=== PATIENT | female | born 1985 | race Caucasian/White ===

== ENCOUNTER 2022-11-10 10:58 | Emergency (ER) | payer OTHER, SELFPAY ==
[2022-11-10 11:02] VITALS: BP 178/100; PULSE 86; RESP 18; TEMP 36.6; O2SAT 98; BMI 38.0
--- NOTE | 2022-11-10 12:02 | US_ITS ---
Patient: MAURY FRIED Exam Date: 11/10/2022 : 1985 Gender:F Ordering : Ifrah Chase . Admission #: [id number] Family : Order #: [id number] CLICK HERE TO VIEW EXAM RADIOLOGY REPORT PROCEDURE: US BREAST RT LIMITED COMPARISON: None. INDICATIONS: abscess TECHNIQUE: Breast ultrasound was performed, with evaluation focusing only on specific areas of concern. FINDINGS: DIAGNOSTIC CATEGORY 5--HIGHLY SUGGESTIVE OF MALIGNANCY. HIGH PROBABILITY OF MALIGNANCY BASED ON THE FOLLOWING: RIGHT BREAST: Within the anterior breasts, appearing to be part of the nipple, is a 2.2 x 2.1 x 2.1 cm heterogeneous, vascular, and spiculated lesion of uncertain etiology; neoplasm versus abscess. Internal blood flow favors neoplasm. Tissue sampling is recommended. Patient is currently in the emergency department. Findings are being called by myself to the emergency department at this time. RECOMMENDATIONS: SURGICAL CONSULTATION. PLEASE NOTE: A NORMAL ULTRASOUND EXAMINATION DOES NOT EXCLUDE THE POSSIBILITY OF BREAST CANCER. A CLINICALLY SUSPICIOUS PALPABLE LUMP SHOULD BE BIOPSIED. Dictated by: Luis Fernando Eng M.D. on 11/10/2022 at 12:44 Approved by: Luis Fernando Eng M.D. on 11/10/2022 at 12:51
[2022-11-10] MEDS: TRAMADOL HCL 50 MG TABLET PO (12:19)
[2022-11-10 12:28] LABS: Basophils Percent Auto 0.3 % (0.2-2.0); Eosinophils Absolute Auto 0.1 10^3/uL (0.0-0.7); Eosinophils Percent Auto 1.3 % (0.9-7.0); Hematocrit 40.2 % (36.0-48.0); Hemoglobin 13.2 g/dL (12.0-16.0); Immature Granulocytes Abs Auto 0.01 10^3/uL (0.00-0.03); Immature Granulocytes Pct Auto 0.2 % (0.0-0.5); Lymphocytes Absolute Auto 1.2 10^3/uL (1.2-3.8); Lymphocytes Percent Auto 19.5 % (20.5-60.0); Mean Corpuscular HGB Conc 32.8 g/dL (29.9-35.2); Mean Corpuscular Hemoglobin 30.3 pg (26.7-34.0); Mean Corpuscular Volume 92.2 fL (81.0-99.0); Mean Platelet Volume 10.6 fL (9.5-13.5); Monocytes Absolute Auto 0.4 10^3/uL (0.3-0.8); Monocytes Percent Auto 6.7 % (1.7-12.0); Neutrophils Absolute Auto 4.6 10^3/uL (1.4-6.5); Platelet Count 173 10^3/uL (150-450); Red Blood Count 4.36 10^6/uL (4.20-5.40); Red Cell Distribution Width 11.9 % (11.0-15.0); White Blood Count 6.3 10^3/uL (4.0-11.0)
[2022-11-10 12:41] LABS: Alanine Aminotransferase 19 U/L (14-59); Albumin Level 3.9 g/dL (3.4-5.0); Alkaline Phosphatase 58 U/L (46-116); Anion Gap 10.6; Aspartate Amino Transferase 17 U/L (15-37); BUN Creatinine Ratio 22.2; Bilirubin Total 0.8 mg/dL (0.2-1.0); Calcium 8.9 mg/dL (8.5-10.1); Carbon Dioxide 27.3 mmol/L (21.0-32.0); Chloride 104 mmol/L (98-107); Estimated GFR (African America >60 (>=60); Estimated GFR (Non-African Ame >60 (>=60); Globulin 3.8 g/dL; Glucose 104 mg/dL (74-106); Potassium 3.9 mmol/L (3.5-5.1); Sodium 138 mmol/L (136-145); Total Protein 7.7 g/dL (6.4-8.2)
--- NOTE | 2022-11-10 14:18 | ED.GENADUL1 ---
HPI - General Adult General Chief complaint: Skin/Abscess/Foreign Body Stated complaint: RT BREAST PAIN Time Seen by Provider: 11/10/22 11:58 Source: patient Mode of arrival: ambulance History of Present Illness HPI narrative: The patient presented to us with a right breast mass and pain that been going on at least for a year, she mentioned that she presented to her primary care doctor almost a year ago when she had cauterization of the nipple area for the pain The patient explained the procedure in her voice but she is not sure what exactly happened, she is presenting to us after increasing pain in the last month, no fever no chills no other complaints she have no family history of breast cancer she have a history of hysterectomy as well but due to abnormal vaginal bleeding Related Data Home Medications Medication Instructions Recorded Confirmed aripiprazole 20 mg tablet 20 mg PO QDAY 11/10/22 11/10/22 atomoxetine 80 mg capsule 80 mg PO QDAY 11/10/22 11/10/22 buprenorphine 8 mg-naloxone 2 mg 1 film sublingual Q24H 11/10/22 11/10/22 sublingual film clindamycin HCl 300 mg capsule 300 mg PO Q6H 11/10/22 11/10/22 gabapentin 800 mg tablet 800 mg PO QDAY 11/10/22 11/10/22 Previous Rx's Medication Instructions Recorded amoxicillin 875 mg-potassium 1 tab PO Q12H #20 tabs 11/10/22 clavulanate 125 mg tablet tramadol 50 mg tablet 50 mg PO Q8H PRN pain #9 tabs 11/10/22 Allergies Allergy/AdvReac Type Severity Reaction Status Date / Time doxycycline AdvReac Intermediate Verified 11/10/22 11:08 erythromycin base AdvReac Intermediate Verified 11/10/22 11:08 NSAIDS (Non-Steroidal AdvReac Intermediate Verified 11/10/22 11:08 Anti-Inflamma Sulfa (Sulfonamide AdvReac Intermediate Verified 11/10/22 11:08 Antibiotics) elavil AdvReac Intermediate Uncoded 11/10/22 11:08 prestiq AdvReac Intermediate Uncoded 11/10/22 11:08 Review of Systems ROS Status of ROS 10 or more systems reviewed and unremarkable except as noted in history and below Exam Narrative Exam Narrative: Nurses notes and vital signs reviewed and patient is not hypoxic. General: Well-appearing and in no apparent distress. Skin: Warm, dry, no pallor noted. No rash. Head: Normocephalic, atraumatic. Neck: Supple, non-tender. Eye: Pupils are equal, round and EOMI. No scleral icterus. Ears, Nose, Mouth, and Throat: TM are clear, no nasal mucosal hypertrophy. Oral mucosa is moist, no posterior oropharynx erythema, uvula is mid-line Cardiovascular: Regular Rate and Rhythm without murmur, gallop or rub. Respiratory: No accessory muscle use or respiratory distress. Lungs are clear to auscultation, no wheezing, rales or rhonchi Chest Wall: Left breast examination was benign right breast examination shows deformity of the right nipple with area of 7 by 5 cm oval just below the nipple and tender , redness of the area as well noted Back: No midline thoracic or lumbar vertebral tenderness. No CVA tenderness Musculoskeletal: normal ROM, no calf or popliteal tenderness, no lower extremity edema/swelling GI: Abdomen is soft, non-distended. Normal bowel sounds. No masses appreciated. No tenderness to palpation. No rebound, guarding, or rigidity noted. Neurological: A&O x4. No cranial nerve dysfunction observed. No truncal ataxia. Moves all extremities. Sensation intact. Psychiatric: Cooperative and interactive. Normal mood and affect. Constitutional Vital Signs, click to edit/add: Last Vital Signs Temp 98 F 11/10/22 11:02 Pulse 86 11/10/22 11:02 Resp 18 11/10/22 11:02 BP 178/100 H 11/10/22 11:02 Pulse Ox 98 11/10/22 11:02 O2 Del Method Room Air 11/10/22 11:02 Course Vital Signs Vital signs: Vital Signs Temperature 98 F 11/10/22 11:02 Pulse Rate 86 11/10/22 11:02 Respiratory Rate 18 11/10/22 11:02 Blood Pressure 178/100 H 11/10/22 11:02 Pulse Oximetry 98 11/10/22 11:02 Oxygen Delivery Method Room Air 11/10/22 11:02 Temperature 98 F 11/10/22 11:02 Pulse Rate 86 11/10/22 11:02 Respiratory Rate 18 11/10/22 11:02 Blood Pressure 178/100 H 11/10/22 11:02 Pulse Oximetry 98 11/10/22 11:02 Oxygen Delivery Method Room Air 11/10/22 11:02 Medical Decision Making MDM Narrative Medical decision making narrative: The patient CBC and chemistry showed no acute pathology but the ultrasound done showed possibility of highly suspicious cancer as well I spoke with the general surgery on-call and the patient will follow up with him for biopsy as outpatient I did start the patient on Augmentin and she was provided with tramadol for the pain for the next 3 days The patient was instructed about the importance of follow-up with general surgery for biopsy there is a high possibility of cancer and she understand that fully The patient is to follow up with primary care physician in next 2-3 days or to return to the emergency department should any of the signs or symptoms worsen or new symptoms develop. The patient agrees with the following Diagnosis and Treatment plan and the patient will be discharged home. Lab Data Labs: Lab Results 11/10/22 Range/Units 12:12 WBC 6.3 (4.0-11.0) 10^3/uL RBC 4.36 (4.20-5.40) 10^6/uL Hgb 13.2 (12.0-16.0) g/dL Hct 40.2 (36.0-48.0) % MCV 92.2 (81.0-99.0) fL MCH 30.3 (26.7-34.0) pg MCHC 32.8 (29.9-35.2) g/dL RDW 11.9 (11.0-15.0) % Plt Count 173 (150-450) 10^3/uL MPV 10.6 (9.5-13.5) fL Neut % (Auto) 72.0 (43.0-75.0) % Lymph % (Auto) 19.5 L (20.5-60.0) % [place] % (Auto) 6.7 (1.7-12.0) % Eos % (Auto) 1.3 (0.9-7.0) % Baso % (Auto) 0.3 (0.2-2.0) % Neut # (Auto) 4.6 (1.4-6.5) 10^3/uL Lymph # (Auto) 1.2 (1.2-3.8) 10^3/uL [place] # (Auto) 0.4 (0.3-0.8) 10^3/uL Eos # (Auto) 0.1 (0.0-0.7) 10^3/uL Baso # (Auto) 0.0 (0.0-0.1) 10^3/uL Abs Immat Gran (auto) 0.01 (0.00-0.03) 10^3/uL Imm/Tot Granulo (auto) 0.2 (0.0-0.5) % Sodium 138 (136-145) mmol/L Potassium 3.9 (3.5-5.1) mmol/L Chloride 104 (98-107) mmol/L Carbon Dioxide 27.3 (21.0-32.0) mmol/L Anion Gap 10.6 BUN 14.0 (7.0-18.0) mg/dL Creatinine 0.63 (0.55-1.02) mg/dL Est GFR ( Amer) >60 (>=60) Est GFR (Non-Af Amer) >60 (>=60) BUN/Creatinine Ratio 22.2 Glucose 104 (74-106) mg/dL Calcium 8.9 (8.5-10.1) mg/dL Total Bilirubin 0.8 (0.2-1.0) mg/dL AST 17 (15-37) U/L ALT 19 (14-59) U/L Alkaline Phosphatase 58 (46-116) U/L Total Protein 7.7 (6.4-8.2) g/dL Albumin 3.9 (3.4-5.0) g/dL Globulin 3.8 g/dL Albumin/Globulin Ratio 1.0 Discharge Plan Discharge Chief Complaint: Skin/Abscess/Foreign Body Clinical Impression: Breast mass, right Patient Disposition: Home, Self-Care Time of Disposition Decision: 13:34 Prescriptions / Home Meds: New amoxicillin-pot clavulanate 875-125 mg tablet 1 tab PO Q12H Qty: 20 0RF tramadol 50 mg tablet 50 mg PO Q8H PRN (Reason: pain) Qty: 9 0RF No Action aripiprazole 20 mg tablet 20 mg PO QDAY atomoxetine 80 mg capsule 80 mg PO QDAY buprenorphine-naloxone 8-2 mg film 1 film sublingual Q24H clindamycin HCl 300 mg capsule 300 mg PO Q6H gabapentin 800 mg tablet 800 mg PO QDAY Instructions: Breast Mass (ED), Needle Biopsy (DC) Stand Alone Forms: Portal Instructions Referrals: Lisa Pérez [Primary Care Provider] - 1 week Karel Garvey MD [Physician] - As soon as possible Discharge Date/Time: 11/10/22 14:09
== END 2022-11-10 14:09 | disposition home or self-care (01) ==
PROVIDERS: Emergency Provider Emergency Medicine; PCP Physician Assistant
DX: N63.10 Unspecified lump in the right breast, unspecified quadrant (principal); Z79.899 Other long term (current) drug therapy; Z90.710 Acquired absence of both cervix and uterus
CPT/HCPCS: 36415; 76642; 80053; 85025; 99285

== ENCOUNTER 2022-11-11 20:48 | Outpatient (REF) | payer OTHER, SELFPAY | END 2022-11-11 20:49 | disposition home or self-care (01) | LOC: LAB 20:48 | PROVIDERS: Visit Provider Surgery | DX: N61.1 Abscess of the breast and nipple (principal) | CPT/HCPCS: 87070; 87150; 87186 ==

== ENCOUNTER 2022-12-25 10:45 | Outpatient (OUT) | payer OTHER, SELFPAY ==
--- NOTE | 2022-12-25 12:13 | XR_ITS ---
The [address] [address] Patient Name: MAURY FRIED MRN: [id number] date: 1985 Sex: F Assigned Patient Location: [facility] Current Patient Location: [facility] Accession/Order Number: [id number] Exam Date: 12/25/2022 12:05 Report Date: 12/25/2022 12:26 At the request of: MIGUELINA ROQUE Procedure: XR chest 2V EXAM: XR chest 2V HISTORY: PRE OP EXAM COMPARISON: None. TECHNIQUE: Upright PA and lateral chest x-ray FINDINGS: The heart is not enlarged and the vasculature is not distended. No acute infiltrate, effusion or pneumothorax is identified. Mild focal eventration of the right hemidiaphragm is noted. Surgical clips are seen in the upper abdomen. The osseous structures are grossly intact. XR/XR chest 2V IMPRESSION: No acute infiltrate or evidence of cardiac decompensation. Comparison with a previous study may be helpful in determining the chronicity of these findings. Electronically authenticated by: MILADYS GALAN Date: 12/25/2022 12:26
[2022-12-25 12:30] LABS: BUN Creatinine Ratio 16.4; Calcium 9.1 mg/dL (8.5-10.1); Carbon Dioxide 30.8 mmol/L (21.0-32.0); Chloride 103 mmol/L (98-107); Estimated GFR (African America >60 (>=60); Estimated GFR (Non-African Ame >60 (>=60); Glucose 106 mg/dL (74-106); Potassium 3.8 mmol/L (3.5-5.1); Sodium 139 mmol/L (136-145)
[2022-12-25 12:31] LABS: Basophils Percent Auto 0.5 % (0.2-2.0); Eosinophils Absolute Auto 0.1 10^3/uL (0.0-0.7); Eosinophils Percent Auto 1.7 % (0.9-7.0); Hematocrit 41.2 % (36.0-48.0); Hemoglobin 13.7 g/dL (12.0-16.0); Immature Granulocytes Abs Auto 0.01 10^3/uL (0.00-0.03); Immature Granulocytes Pct Auto 0.2 % (0.0-0.5); Lymphocytes Absolute Auto 1.3 10^3/uL (1.2-3.8); Lymphocytes Percent Auto 20.7 % (20.5-60.0); Mean Corpuscular HGB Conc 33.3 g/dL (29.9-35.2); Mean Corpuscular Hemoglobin 31.1 pg (26.7-34.0); Mean Corpuscular Volume 93.4 fL (81.0-99.0); Mean Platelet Volume 10.6 fL (9.5-13.5); Monocytes Absolute Auto 0.3 10^3/uL (0.3-0.8); Monocytes Percent Auto 4.1 % (1.7-12.0); Neutrophils Absolute Auto 4.6 10^3/uL (1.4-6.5); Neutrophils Percent Auto 72.8 % (43.0-75.0); Platelet Count 228 10^3/uL (150-450); Red Blood Count 4.41 10^6/uL (4.20-5.40); White Blood Count 6.3 10^3/uL (4.0-11.0)
[2022-12-25 12:36] LABS: Alanine Aminotransferase 19 U/L (14-59); Albumin Globulin Ratio 0.9; Albumin Level 3.7 g/dL (3.4-5.0); Alkaline Phosphatase 61 U/L (46-116); Aspartate Amino Transferase 13 U/L (15-37); Bilirubin Direct 0.1 mg/dL (0.0-0.2); Bilirubin Total 0.5 mg/dL (0.2-1.0); Globulin 3.9 g/dL; Total Protein 7.6 g/dL (6.4-8.2)
[2022-12-25 12:55] LABS: INR 0.97; Partial Thromboplastin Time 34.5 sec (22.3-36.2); Prothrombin Time 10.3 sec (9.0-11.6)
== END 2022-12-25 10:46 | disposition home or self-care (01) ==
PROVIDERS: PCP Family Medicine; Visit Provider Surgery
DX: Z01.812 Encounter for preprocedural laboratory examination (principal); N61.1 Abscess of the breast and nipple
CPT/HCPCS: 36415; 71046; 80048; 80076; 85025; 85610; 85730

== ENCOUNTER 2023-01-07 09:54 | Day surgery (SDC) | payer OTHER, SELFPAY ==
[2022-12-25 11:59] VITALS: BP 137/87; PULSE 75; RESP 20; TEMP 36.4; O2SAT 99; BMI 40.4
[2023-01-07] VITALS (14 sets, daily range): BP systolic 130–183; BP diastolic 82–108; PULSE 64–90; RESP 11–24; TEMP 35.5–36.4; O2SAT 94–100
--- NOTE | 2023-01-07 | OP_ITS ---
OPERATION DATE: ??01/07/2023 PREOPERATIVE DIAGNOSIS:? 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 POSTOPERATIVE DIAGNOSIS:? 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 PROCEDURE:? Excision of granuloma and scar tissue right subareolar breast. SURGEON:? Karel Garvey M.D. ANESTHESIA:? General with laryngeal mask airway. ESTIMATED BLOOD LOSS:? Less than 10 mL. INDICATIONS AND CONSENT:? Patient is a 37-year-old female, uses nicotine products, who has had previous right nipple piercing.? She has had chronic problems with intermittent breast infections, did have some sort of procedure for the nipple piercing tract in the remote past by another surgeon, but then more recently has had frequent right breast subareolar infections with cellulitis, last being several weeks ago.? She does have evidence of intermittent drainage from the piercing site in the medial aspect of the right nipple, as well as some scar tissue in the subareolar area.? The indications, risks, benefits, alternatives of proceeding with excision of the subareolar scar and fistula tract, under general anesthesia, were explained extensively to the patient, including the risks of bleeding, infection, scarring, pain, recurrence and need for further surgery.? All of her questions were answered.? Informed consent was obtained. PROCEDURE:? Patient brought to the operating room, placed in the supine position. ?General anesthesia was induced.? She was prepped and draped in the usual sterile fashion.? Lacrimal duct probe was inserted through the opening in the nipple.? There was some cloudy drainage with compression of the subareolar area.? This was sent for culture.? A curvilinear incision was then made, approximately at the 2 o?clock position, at the areolar border, carried down through subcutaneous tissue using sharp dissection, as well as needle tip electrocautery.? An area of scar in the subareolar region was excised, approximately 2 x 2 cm area.? It was sent off to Pathology.? Hemostasis was achieved with 3-0 Vicryl suture as well as electrocautery.? The wound was irrigated.? There was good hemostasis.? The subcutaneous tissues were injected with 0.5% Marcaine.? The subcutaneous tissue was then re-approximated with interrupted 3-0 Monocryl suture.? The skin was then closed with a running 4-0 subcuticular Monocryl suture and skin glue.? Sterile pressure dressing was applied.? Sponge and needle counts were correct x2 per nursing personnel.? Patient tolerated procedure well, was sent to recovery area in good condition. CC:? Patient?s family physician. JESUS
[2023-01-07 10:30] LABS: Amphetamine Screen Urine NEGATIVE (NEGATIVE); Benzodiazepines Screen Urine NEGATIVE (NEGATIVE); Cannabinoid Screen Urine POSITIVE (NEGATIVE); Cocaine Screen Urine NEGATIVE (NEGATIVE); Methamphetamines Screen Urine NEGATIVE (NEGATIVE); Opiate Screen Urine NEGATIVE (NEGATIVE); Phencyclidine Screen Urine NEGATIVE (NEGATIVE)
[2023-01-07 10:31] LABS: Barbiturates Screen Urine NEGATIVE (NEGATIVE); Buprenorphine Screen Urine POSITIVE (NEGATIVE); Methadone Screen Urine NEGATIVE (NEGATIVE); Oxycodone Screen Urine NEGATIVE (NEGATIVE); Tricyclic Antidepressant Urine NEGATIVE (NEGATIVE)
[2023-01-07] MEDS: LACTATED RINGER'S SOLUTION 1,000 ML 50 ML IV (10:50)
[2023-01-07] MEDS: CEFAZOLIN SODIUM/DEXTROSE,ISO 2 GM/50 ML PIGGYBACK IV (12:45)
[2023-01-07] MEDS: BUPIVACAINE HCL 0.5% PF 50 MG/10 ML VIAL 20 ML INJ (13:00)
[2023-01-07] MEDS: ACETAMINOPHEN 325 MG TABLET 650 MG PO (13:54)
--- NOTE | 2023-01-07 14:16 | PC.NURSE ---
1354: GAVE TYLENOL FOR 4 OUT OF 10 PAIN MOSTLY BURNING.
--- NOTE | 2023-01-07 14:34 | PC.NURSE ---
PATIENT IS VERY TEARFUL BUT NOT DUE TO PAIN. VERY APPRECIATIVE OF OUR CARE PER PATIENT
== END 2023-01-07 14:26 | disposition home or self-care (01) ==
PROVIDERS: Visit Provider Surgery
PROC: (CPT 400; principal; 2023-01-07 11:20)
DX: N61.1 Abscess of the breast and nipple (principal); L90.5 Scar conditions and fibrosis of skin; B18.2 Chronic viral hepatitis C; F31.9 Bipolar disorder, unspecified; Z90.710 Acquired absence of both cervix and uterus; E66.01 Morbid (severe) obesity due to excess calories; Z68.39 Body mass index [BMI] 39.0-39.9, adult; F20.9 Schizophrenia, unspecified; Z90.49 Acquired absence of other specified parts of digestive tract
CPT/HCPCS: 11406; 12032; 36415; 80307; 87070; 87150; 87186; 88305; 99999; J1170; J2704

== ENCOUNTER 2023-11-20 17:07 | Emergency (ER) | payer OTHER, SELFPAY ==
[2023-11-20 17:18] VITALS: BP 160/90; PULSE 81; TEMP 36.8; O2SAT 100; BMI 39.9
--- NOTE | 2023-11-20 17:40 | ED_ITS ---
HPI HPI - General Adult General Chief complaint: Abdominal Pain Stated complaint: Hernia Time Seen by Provider: 11/20/23 17:29 Source: patient Mode of arrival: walk-in Limitations: no limitations History of Present Illness HPI narrative: 37-year-old female presents for chief complaint of lower abdominal pain. She has a history of a lower abdominal hernia per her examination. It is actually reduced at this time. She states that she usually out . She said she woke this morning it was back place of normal. She has some abdominal discomfort. She denies any nausea, and fever or chills. She is eating and drinking without any difficulty. She had a normal bowel movement this morning. She states she is waiting to see Dr. Vázquez as a referral from her primary care physician. Related Data Home Medications ?Medication ?Instructions ?Recorded ?Confirmed aripiprazole 20 mg tablet 20 mg PO QDAY 11/10/22 11/20/23 buprenorphine 8 mg-naloxone 2 mg 1 film sublingual Q24H 11/10/22 11/20/23 sublingual film atomoxetine 100 mg capsule 100 mg PO DAILY 11/20/23 11/20/23 (Strattera) Allergies Allergy/AdvReac Type Severity Reaction Status Date / Time doxycycline Allergy Intermediate Hives Verified 01/07/23 10:31 Sulfa (Sulfonamide Allergy Intermediate Hives Verified 01/07/23 10:31 Antibiotics) amitriptyline [From Elavil] AdvReac Intermediate Unknown Verified 01/07/23 10:37 desvenlafaxine AdvReac Intermediate Verified 01/07/23 10:37 erythromycin base AdvReac Intermediate Hives Verified 01/07/23 10:31 NSAIDS (Non-Steroidal AdvReac Intermediate Abdominal Verified 01/07/23 10:31 Anti-Inflamma Pain Opioid HPI Opioid Management Most Recent Opioid Data: Last Pain Scale 8 11/20/23 17:25 Ur Phencyclidine Scrn Negative (NEGATIVE) 01/07/23 09:59 Review of Systems ROS Narrative All Systems are negative except as noted/marked.All systems reviewed and otherwise negative [facility] Medical History (Updated 11/20/23 @ 17:40 by Yesica Bennett) COVID-19 ?U07.1 - COVID-19 (ICD-10) Urinary frequency ?R35.0 - Frequency of micturition (ICD-10) Vaping nicotine dependence, tobacco product ?F17.290 - Nicotine dependence, other tobacco product, uncomplicated (ICD-10) Sleep walking ?F51.3 - Sleepwalking [somnambulism] (ICD-10) Schizophrenia ?F20.9 - Schizophrenia, unspecified (ICD-10) Overactive bladder ?N32.81 - Overactive bladder (ICD-10) Incontinence ?R32 - Unspecified urinary incontinence (ICD-10) Lumbar radiculopathy ?M54.16 - Radiculopathy, lumbar region (ICD-10) Left inguinal hernia ?K40.90 - Unilateral inguinal hernia, without obstruction or gangrene, not specified as recurrent (ICD-10) Insomnia ?G47.00 - Insomnia, unspecified (ICD-10) Herpes ?B00.9 - Herpesviral infection, unspecified (ICD-10) Heroin abuse ?F11.10 - Opioid abuse, uncomplicated (ICD-10) Eczema ?L30.9 - Dermatitis, unspecified (ICD-10) Depression ?F32.A - Depression, unspecified (ICD-10) Crohn's disease ?K50.90 - Crohn's disease, unspecified, without complications (ICD-10) Hepatitis C ?B19.20 - Unspecified viral hepatitis C without hepatic coma (ICD-10) Marijuana user ?F12.90 - Cannabis use, unspecified, uncomplicated (ICD-10) Bipolar disorder ?F31.9 - Bipolar disorder, unspecified (ICD-10) Anemia ?D64.9 - Anemia, unspecified (ICD-10) Surgical History (Updated 01/07/23 @ 10:25 by Sara Pollack) History of esophagogastroduodenoscopy (EGD) ?Z98.890 - Other specified postprocedural states (ICD-10) History of colonoscopy ?Z98.890 - Other specified postprocedural states (ICD-10) H/O ovarian cystectomy ?Z98.890 - Other specified postprocedural states (ICD-10) ?Z87.42 - Personal history of other diseases of the female genital tract (ICD-10) History of laparoscopy ?Z98.890 - Other specified postprocedural states (ICD-10) Hx of cholecystectomy ?Z90.49 - Acquired absence of other specified parts of digestive tract (ICD- 10) Previous section ?Z98.891 - History of uterine scar from previous surgery (ICD-10) History of appendectomy ?Z90.49 - Acquired absence of other specified parts of digestive tract (ICD- 10) H/O: hysterectomy ?Z90.710 - Acquired absence of both cervix and uterus (ICD-10) Family History (Updated 12/25/22 @ 11:37 by Adelina Trotter, RN) Other Family history of CHF (congestive heart failure) Family history of COPD (chronic obstructive pulmonary disease) Family history of cancer Family history of diabetes mellitus Family history of hypertension Family history of myocardial infarction Family history of stroke Social History (Updated 12/25/22 @ 12:06 by Adelina Trotter, RN) Within the past year, how often did you have a drink containing alcohol: monthly or less Within the past year, how many standard drinks containing alcohol did you have on a typical day: 1 or 2 Within the past year, how often did you have six or more drinks on one occasion: never Total score: 0 Score interpretation: A score less than 3 is consistent with normal alcohol consumption. Smoking status: Former smoker Do you use any of these nicotine containing products: vaping products Nicotine containing products detail: yes Second hand tobacco smoke exposure: No Non-prescribed substance use: former substance user and cannabis (any form) Non-prescribed substance use details: Recovery from numerous recreational drugs Previous occupational history: [employer] Known occupational exposures/hazards: No Highest level of school completed/degree received: some college, no degree Do you think of yourself as: bisexual Gender Identity: female Exam Narrative Exam Narrative: Nurses note and vital signs reviewed and patient is not hypoxic. General: The patient appears well and in no apparent distress. Patient is resting comfortably on cart. Skin: Warm, dry, no pallor noted. There is no rash noted. Head: Normocephalic, atraumatic Eye: Normal conjunctiva, no drainage, EOMI. PERRL Ears, Nose, Mouth, and Throat: oral mucosa is moist. Nares patent. Mouth without vesicles. Ear canals patent. Tm's without Erythema Cardiovascular: Regular Rate and Rhythm Respiratory: Patient is in no distress, no accessory muscle use, lungs are clear to auscultation, no wheezing, rales or rhonchi Back: non-tender, no CVA tenderness bilaterally to percussion. GI: no evidence of hernia obstruction or strangulation. Normal bowel sounds, no tenderness to palpation, no masses appreciated. No rebound, guarding, or rigidity noted. Musculoskeletal: The patient has no evidence of calf tenderness, no pitting edema, symmetrical pulses noted bilaterally Neurological: A&O x4, normal speech Psychiatric: Cooperative Constitutional Vital Signs, click to edit/add: Last Vital Signs Temp 98.2 F 11/20/23 17:18 Pulse 81 11/20/23 17:18 Resp 18 11/20/23 17:18 BP 160/90 H 11/20/23 17:18 Pulse Ox 100 11/20/23 17:18 Course Vital Signs Vital signs: Vital Signs Temperature 98.2 F 11/20/23 17:18 Pulse Rate 81 11/20/23 17:18 Respiratory Rate 18 11/20/23 17:18 Blood Pressure 160/90 H 11/20/23 17:18 Pulse Oximetry 100 11/20/23 17:18 Temperature 98.2 F 11/20/23 17:18 Pulse Rate 81 11/20/23 17:18 Respiratory Rate 18 11/20/23 17:18 Blood Pressure 160/90 H 11/20/23 17:18 Pulse Oximetry 100 11/20/23 17:18 Medical Decision Making MDM Narrative Medical decision making narrative: 37-year-old female presents for chief complaint of lower abdominal pain. She has a history of a lower abdominal hernia per her examination. It is actually reduced at this time. She states that she usually out . She said she woke this morning it was back place of normal. She has some abdominal discomfort. She denies any nausea, and fever or chills. She is eating and drinking without any difficulty. She had a normal bowel movement this morning. She states she is waiting to see Dr. Vázquez as a referral from her primary care physician. Today, patient has no evidence of obstruction or abdominal hernia. It has been easily reduced. No strangulation noted. Bowel sounds are active. Patient was offered x-ray. She did denied the need for an x-ray. She is waiting on a referral to a general surgeon. Patient will follow-up with Dr. vázquez office. Patient did request a work note was given a work note for today and tomorrow. Follow-up as necessary. Reasons to return to the emergency room including inability to keep any food or fluids down profuse vomiting or abdominal pain or inability to reduce her known hernia. Patient verbalized understanding agrees with plan of care. Differential Diagnosis Differential Diagnosis: hernia, nausea vomiting Discharge Plan Discharge Stand Alone Forms: Portal Instructions Chief Complaint: Abdominal Pain Clinical Impression: Abdominal pain, Hernia Patient Disposition: Home, Self-Care Time of Disposition Decision: 17:39 Condition: Good Prescriptions / Home Meds: No Action aripiprazole 20 mg tablet 20 mg PO QDAY buprenorphine-naloxone 8-2 mg film 1 film sublingual Q24H atomoxetine [Strattera] 100 mg capsule 100 mg PO DAILY Print Language: Occitan Referrals: Barry House MD [Primary Care Provider] - 1 week Karel Vázquez MD [Physician] - 1 week
[2023-11-20 17:45] VITALS: BP 158/82; PULSE 80; O2SAT 98
== END 2023-11-20 17:46 | disposition home or self-care (01) ==
PROVIDERS: Emergency Provider Emergency Medicine Emergency Medical Services; PCP Family Medicine
DX: R10.9 Unspecified abdominal pain (principal); K46.9 Unspecified abdominal hernia without obstruction or gangrene; Z87.891 Personal history of nicotine dependence
CPT/HCPCS: 99281

== ENCOUNTER 2024-10-03 11:33 | Outpatient (OUT) | payer OTHER, SELFPAY ==
--- OUTSIDE RECORDS SUMMARY | 2024-10-03 11:41 | XMS_ITS | Clinical Summary ---
Author Organization [facility] tem Address [id number] [address] [place] [address] Care Team Providers Care Rn Urgent Care Name Role Phone No Pcp, No Pcp Primary Care Provider Unavailabl e Allergies Active Allergy Reactions Criticality Noted Date Comments Acetaminophen 10/06/2017 Sulfamethoxazole-Trimethoprim 2017 Amitriptyline 10/06/2017 Erythromycin 10/06/2017 Cephalexin 10/06/2017 Pregabalin 10/06/2017 Morphine 10/06/2017 Nsaids (Non-Steroidal Anti-I nflammatory Drug) 10/06/2017 Desvenlafaxine Succinate 10/06/2017 Ketorolac 10/06/2017 Medications * This document contains information received from the source organization and may not represent a complete record from that organization. [id number] A-calcium &mins (THERAGRAN-M) 9 mg iron-400 mcg tablet Take 1 tablet by mouth daily. Active valACYclovir (VALTREX) 500 mg tablet Take 1,000 mg by mouth daily. Active loratadine (CLARITIN) 10 mg tablet Take 10 mg by mouth daily. Active magnesium oxide (MAG-OX) 400 mg tablet Take 400 mg by mouth daily. Active gabapentin (NEURONTIN) 300 mg capsule Take 300 mg by mouth 2 (two) times a day. Pt takes in the morning and at hs. Pt still needs hs dose. Active hydrOXYzine (ATARAX) 50 mg tablet Take 100 mg by mouth nightly as needed for itching. Active diphenhydrAMINE (BENADRYL) 25 mg capsule Take 25 mg by mouth nightly as needed for itching or sleep. Active Active Problems Problem Noted Date Diagnosed Date Schizo affective schizophrenia 10/06/2017 Social History Tobacco Use Types Packs/Day Years Used Date Smoking Tobacco: Every Day Cigarettes Smokeless Tobacco: Former Tobacco Cessation:Ready to Q uit: No; Counseling Given: Yes Alcohol Use Standard Drinks/Week Comments Yes 0 (1 standard drink = 0.6 oz pur e alcohol) Childcare Answer Date Recorded Childcare Unknown 09/29/2018 Employment Answer Date Recorded Employment Unknown 09/29/2018 Purpose - Life Answer Date Recorded Purpose and direction in life Unknown Comments No Sex and Gender Information Value Date Recorded Sex Assigned at Not on file Legal Sex Female 12:09 PM EDT Gender Identity Not on file Sexual Orientation Not on file Last Filed Vital Signs Vital Sign Reading Time Taken Comments Blood Pressure 114/71 10/08/2017 8:53 AM EDT Pulse 97 10/08/2017 8:53 AM EDT Temperature 36.5 C (97.7 F) 10/08/2017 8:53 AM EDT Respiratory Rate 14 10/08/2017 8:53 AM EDT Oxygen Saturation - - Inhaled Oxygen Concentration - - Weight 76.7 kg (169 lb) 10/05/2017 11:15 PM EDT Height 170.2 cm (5' 7 ) 10/05/2017 11:15 PM EDT Body Mass Index 26.47 10/05/2017 11:15 PM EDT Plan of Treatment Not on file Medical Devices Not on file Insurance [employer] [employer] Advance Directives * Full Code (Latest Code Status on File) Date Activated Date Inactivated Comments 10/06/2017 3:45 PM 10/08/2017 5:38 PM Care Teams Rn Urgent Care Relationship Specialty Start Date End Date No Pcp, [place] [address] PCP - General Family Medicine 10/06/17
--- NOTE | 2024-10-03 11:50 | ECG_ITS ---
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 Measurements Intervals [place] Rate: 77 P: 59 [place]: 144 QRS: 72 QRSD: 102 T: 56 QT: 381 QTc: 431 Interpretive Statements SINUS RHYTHM Normal ECG Compared to ECG 10/14/2020 21:25:35 No significant changes Electronically Signed On 10-03-2024 13:22:02 EDT by ANJEL GILBERT M.D.
[2024-10-03 12:44] LABS: Basophils Percent Auto 0.3 % (0.2-2.0); Eosinophils Absolute Auto 0.1 10^3/uL (0.0-0.7); Eosinophils Percent Auto 2.1 % (0.9-7.0); Hemoglobin 13.5 g/dL (12.0-16.0); Lymphocytes Absolute Auto 1.5 10^3/uL (1.2-3.8); Mean Corpuscular HGB Conc 33.8 g/dL (29.9-35.2); Mean Corpuscular Hemoglobin 30.5 pg (26.7-34.0); Mean Corpuscular Volume 90.5 fL (81.0-99.0); Mean Platelet Volume 10.6 fL (9.5-13.5); Monocytes Absolute Auto 0.3 10^3/uL (0.3-0.8); Monocytes Percent Auto 4.8 % (1.7-12.0); Neutrophils Percent Auto 67.8 % (43.0-75.0); Platelet Count 199 10^3/uL (150-450); Red Blood Count 4.42 10^6/uL (4.20-5.40); Red Cell Distribution Width 11.9 % (11.0-15.0); White Blood Count 5.8 10^3/uL (4.0-11.0)
[2024-10-03 12:45] LABS: Anion Gap 14.8; BUN Creatinine Ratio 19.6; Calcium 9.3 mg/dL (8.5-10.1); Carbon Dioxide 26.7 mmol/L (21.0-32.0); Chloride 102 mmol/L (98-107); Estimated GFR (African America >60 (>=60 mL/min/1.73m^2); Estimated GFR (Non-African Ame >60 (>=60 mL/min/1.73m^2); Glucose 129 mg/dL (74-106); Potassium 3.5 mmol/L (3.5-5.1); Sodium 140 mmol/L (136-145)
== END 2024-10-03 11:34 | disposition home or self-care (01) ==
PROVIDERS: PCP Family Medicine; Visit Provider Podiatrist Foot & Ankle Surgery
DX: Z01.818 Encounter for other preprocedural examination (principal); Z01.812 Encounter for preprocedural laboratory examination; Z01.810 Encounter for preprocedural cardiovascular examination
CPT/HCPCS: 36415; 80048; 80307; 85025; 93005

== ENCOUNTER 2024-10-05 10:18 | Outpatient (OUT) | payer OTHER, SELFPAY ==
--- OUTSIDE RECORDS SUMMARY | 2013-01-20 05:12 | XMS_ITS | Encounter Summary ---
Author Organization Michi Kathya Briseno [facility] Address [address] [place] [address] Care Team Providers Care Program Arranger Name Role Phone Barry House MD Primary Care Provider [phone] Encounter Details Date Type Department Care Team (Late st Contact Info) Description 01/20/2013 5:12 AM EDT Hospital Encounter MTH PRE ADMIT [address] [phone] Jona Ashley MD 27 [facility] [address] [place] [address] Social History Tobacco Use Types Packs/Day Years Used Date Smoking Tobacco: Former Cigarettes Smokeless Tobacco: Never Comments:quit 3 months ago Alcohol Use Standard Drinks/Week Comments Yes 0 (1 standard drink = 0.6 oz pur e alcohol) rarely AUDIT-C Answer Date Recorded Q1: How often do you have a drink containing alcohol? Never 11/21/2023 Q2: How many drinks containi ng alcohol do you have on a typical day when you are drinking? Patient does not drink Q3: How often do you have si x or more drinks on one occasion? Never 11/21/2023 Interpersonal Safety Domain Source: IP Abuse Scr eening Answer Date Recorded Physical abuse Denies 12/16/2023 Verbal abuse Denies 12/16/2023 Emotional abuse Denies 12/16/2023 Financial abuse Denies 12/16/2023 Sexual abuse Denies 12/16/2023 Comments No Sex and Gender Information Value Date Recorded Sex Assigned at Not on file Legal Sex Female 12:39 PM EST Gender Identity Not on file Sexual Orientation Not on file documented as of this encounter Last Filed Vital Signs Vital Sign Reading Time Taken Comments Blood Pressure 127/76 01/20/2013 8:26 AM EDT Pulse 94 01/20/2013 8:26 AM EDT Temperature - - Respiratory Rate - - Oxygen Saturation 99% 01/20/2013 8:26 AM EDT Inhaled Oxygen Concentration - - Weight 115.9 kg (255 lb 9 oz) 01/20/2013 8:26 AM EDT Height 170.2 cm (5' 7 ) 01/20/2013 8:26 AM EDT Body Mass Index 40.03 01/20/2013 8:26 AM EDT documented in this encounter Functional Status documented as of this encounter Plan of Treatment Not on file documented as of this encounter Procedures Procedure Name Priority Date/Time Associated Diagnosis Comments MICROSCOPIC URINALYSIS Routine 01/20/2013 9:03 AM EDT UA W/REFLEX CULTURE [employer] Label Print 01/20/2013 9:03 AM EDT TYPE AND SCREEN Routine 01/20/2013 9:03 AM EDT CBC WITH AUTO DIFFERENTIAL Routine 01/20/2013 9:02 AM EDT HCG, SERUM, QUALITATIVE Routine 01/20/2013 9:02 AM EDT documented in this encounter Results * (ABNORMAL) Microscopic Urinalysis (01/20/2013 9:03 AM EDT) - 01/20/2013 12:49 PM EDT [facility] WBC, UA 0 TO 2 0 - 5 /HPF 01/20/2013 12:49 PM EDT [facility] RBC, UA None 0 - 2 /HPF 01/20/2013 12:49 PM EDT [facility] Casts UA NOT REPORTED 0 - 2 /LPF [facility] Crystals, UA 10 TO 20(A) NONE /HPF 01/20/2013 12:49 PM EDT [facility] Comment:CALCIUM OXALATE Epithelial Cells, UA 2 TO 5 0 - 25 /HPF 01/20/2013 12:49 PM EDT [facility] Comment: Performed at [address] [place] [address] Renal Epithelial, UA NOT REPORTED 0 /HPF [facility] Bacteria, UA NOT REPORTED NONE [facility] Mucus, UA NOT REPORTED NONE [facility] Trichomonas NOT REPORTED NONE [facility] Amorphous, UA NOT REPORTED NONE [facility] Other Observations UA NOT REPORTED NREQ [facility] Yeast, UA NOT REPORTED NONE [facility] 01/20/2013 9:03 AM EDT 01/20/2013 9:04 AM EDT Jona Ashley MD URINE ORDERABLES Final Result Performing Organization Address [facility]/ZIP Co de Phone Number [facility] [address] [place], [place] [id number] [phone] [facility] * TYPE AND SCREEN (01/20/2013 9:03 AM EDT) Expiration Date 01/27/2013 3 11:13 AM EDT [facility] Arm Band Number [id number] 3 11:12 AM EDT [facility] ABO/Rh A POSITIVE 01/20/2013 11:12 AM EDT [facility] Antibody Screen NEGATIVE 3 11:36 AM EDT [facility] Comment: Performed at [address] [place] [address] BLOOD SPECIMEN / Unknown 01/20/2013 9:03 AM EDT 01/20/2013 9:04 AM EDT us Jona Ashley MD BLOOD BANK TEST ORDERABLES Fi nal Result Performing Organization Address [facility]/ZIP Co de Phone Number [facility] [address] [place], [place] [id number] [phone] [facility] * (ABNORMAL) UA W/REFLEX CULTURE (01/20/2013 9:03 AM EDT) Color, UA DARK YELLOW(A) YEL 01/20/2013 12:49 PM EDT [facility] Turbidity UA CLEAR CLEAR 01/20/2013 12:49 PM EDT [facility] Glucose, Ur NEGATIVE NEG 01/20/2013 12:49 PM EDT [facility] Bilirubin Urine SMALL(A) NEG 01/20/2013 12:49 PM EDT [facility] Ketones, Urine NEGATIVE NEG 01/20/2013 12:49 PM EDT [facility] Specific [place], UA >1.030(H) 1.010 - 1.020 01/20/2013 12:49 PM EDT [facility] Urine Hgb NEGATIVE NEG 01/20/2013 12:49 PM EDT [facility] pH, UA 6.0 5.0 - 9.0 01/20/2013 12:49 PM EDT [facility] Protein, UA 1+(A) NEG 01/20/2013 12:49 PM EDT [facility] Urobilinogen, Urine Normal NORM 01/20/2013 12:49 PM EDT [facility] Nitrite, Urine NEGATIVE NEG 01/20/2013 12:49 PM EDT [facility] Leukocyte Esterase, Urine NEGATIVE NEG 01/20/2013 12:49 PM EDT [facility] Comment: Performed at [address] [place] [address] Urinalysis Comments NOT REPORTED [facility] Urine 01/20/2013 9:03 AM EDT 01/20/2013 9:04 AM EDT us Jona Ashley MD URINE ORDERABLES Final Result [facility] [address] [place], [place] [id number], [facility] [phone] [facility] * HCG Qualitative, Serum (01/20/2013 9:02 AM EDT) Preg, Serum NEGATIVE NEG 01/20/2013 10:24 AM EDT [facility] Comment: Performed at [address] [place] [address] BLOOD SPECIMEN / Unknown 01/20/2013 9:02 AM EDT 01/20/2013 9:04 AM EDT us Jona Ashley MD CHEMISTRY ORDERABLES Final Re sult [facility] [address] [phone] [facility] * (ABNORMAL) CBC auto differential (01/20/2013 9:02 AM EDT) WBC 6.9 3.5 - 11.0 k/uL 01/20/2013 9:38 AM EDT [facility] RBC 4.47 4.0 - 5.2 m/uL 01/20/2013 9:38 AM EDT [facility] Hemoglobin 13.0 12.0 - 16.0 g/dL 01/20/2013 9:38 AM EDT [facility] Hematocrit 40.0 36 - 46 % 01/20/2013 9:38 AM EDT [facility] MCV 89.6 80 - 100 fL 01/20/2013 9:38 AM EDT [facility] MCH 29.1 26 - 34 pg 01/20/2013 9:38 AM EDT [facility] MCHC 32.5 31 - 37 g/dL 01/20/2013 9:38 AM EDT [facility] RDW 14.3(H) 10.0 - 14.0 % 01/20/2013 9:38 AM EDT [facility] Platelets 207 140 - 450 k/uL 01/20/2013 9:38 AM EDT [facility] MPV NOT REPORTED 6.0 - 12.0 fL [facility] Differential Type NOT REPORTED [facility] Seg Neutrophils 56 36 - 66 % 3 9:38 AM EDT [facility] Lymphocytes 35 24 - 44 % 01/20/2013 9:38 AM EDT [facility] Monocytes % 6 0 - 12 % 01/20/2013 9:38 AM EDT [facility] Eosinophils % 2 0 - 8 % 01/20/2013 9:38 AM EDT [facility] Basophils % 1 0 - 2 % 01/20/2013 9:38 AM EDT [facility] Neutrophils Absolute 3.90 1.8 - 7.7 k/uL 01/20/2013 9:38 AM EDT [facility] Lymphocytes Absolute 2.40 1.0 - 4.8 k/uL 01/20/2013 9:38 AM EDT [facility] Monocytes Absolute 0.40 0.0 - 1.0 k/uL 01/20/2013 9:38 AM EDT [facility] Eosinophils Absolute 0.10 0.0 - 0.4 k/uL 01/20/2013 9:38 AM EDT [facility] Basophils Absolute 0.10 0.0 - 0.2 k/uL 01/20/2013 9:38 AM EDT [facility] Comment: Performed at [address] [place] [address] WBC Morphology NOT REPORTED [facility] RBC Morphology NOT REPORTED [facility] Platelet Estimate NOT REPORTED [facility] BLOOD SPECIMEN / Unknown 01/20/2013 9:02 AM EDT 01/20/2013 9:04 AM EDT us Jona Ashley MD HEMATOLOGY ORDERABLES Final R esult [address] [address] [phone] [facility] documented in this encounter Visit Diagnoses Not on filedocumented in this encounter Care Teams Program Arranger Relationship Specialty Start Date End Date Barry House MD [address] [place] [address] PCP - General 01/06/13 documented as of this encounter
--- OUTSIDE RECORDS SUMMARY | 2013-10-26 10:30 | XMS_ITS | Encounter Summary ---
Author Organization [facility] Address [address] [place] [address] Care Team Providers Care Collections Agent Name Role Phone Barry House MD Primary Care Provider [phone] Encounter Details Date Type Department Care Team (Late st Contact Info) Description 10/26/2013 10:30 AM EDT Hospital Encounter MTH Ultrasound [address] [place] [address] Jona Ashley MD [address] [facility] [address] [place] [address] Social History Tobacco Use Types Packs/Day Years [...] on file documented as of this encounter Functional Status documented as of this encounter Plan of Treatment Not on file documented as of this encounter Visit Diagnoses Not on filedocumented in this encounter Care Teams Collections Agent Relationship Specialty Start Date End Date Barry House MD [address] [place] [address] PCP - General 01/06/13 documented as of this encounter
--- OUTSIDE RECORDS SUMMARY | 2015-01-05 09:00 | XMS_ITS | Encounter Summary ---
Author Organization Michi Kathya Briseno [facility] Address [address] [place] [address] Care Team Providers Care Branch Banker Name Role Phone Barry House MD Primary Care Provider [phone] Encounter Details Date Type Department Care Team (Late st Contact Info) Description 01/05/2015 9:00 AM EDT Hospital Encounter MTH PRE ADMIT [address] [phone] Jona Ashley MD 27 [facility] [address] [place] [address] Social History Tobacco Use Types Packs/Day Years [...] on filedocumented in this encounter Care Teams Branch Banker Relationship Specialty Start Date End Date Barry House MD [address] [place] [address] PCP - General 01/06/13 documented as of this encounter
--- OUTSIDE RECORDS SUMMARY | 2021-02-07 12:05 | XMS_ITS | Continuity of Care Document ---
Author Organization [facility] Address [address] [place] [address] Phone Care Team Providers Care Emergency Vehicle Technician Name Role Phone Kranthi Donato DO Unavailable Unavailable Allergies, Adverse Reactions, Alerts Substance Reaction Status Criticality erythromycin base Active No Informa tion pregabalin Active No Information morphine Active No Information KETOROLAC TROMETHAMINE Active No In formation AMITRIPTYLINE HCL Active No Informa tion NSAIDS (Non-Steroidal Anti-Inflammatory Drug) Active No Information acetaminophen Active No Information Medications Medication Instructions Dosage Effective Dates (start - stop) Status Comments gabapentin 800 mg tablet take 1 tablet by oral route 3 times every day 800 MG - Active Geodon 20 mg capsule take 1 capsule by oral route 2 times every day with food 20 MG - Active methocarbamol 750 mg tablet take 1 tablet by oral route 3 times every day 750 MG - Active Maxalt 10 mg tablet take 1 tablet by ora l route once, may repeat at 2 hour intervals; do not exceed 30 mg in 24 hours 10 MG - Active Suboxone 2 mg-0.[address] 1 film by sublingual route every day allow to dissolve slowly in mouth without chewing or swallowing 1 film - Active Valtrex 1 gram tablet take 1 tablet by o ral route every 12 hours 1000 MG - Active Procedures Procedure Date OFFICE/OUTPATIENT VISIT, EST OFFICE/OUTPATIENT VISIT, EST OFFICE/OUTPATIENT VISIT, EST Acute Detox Engraver Automatic URINE TEST Acute Detox Engraver Automatic Intraoral-periapical 1st Film 8 Oral Hygiene Instruction Limited Oral Eval Extract; Erupted Th/exposted Rt 018 Extract; Erupted Th/exposted Rt 018 Alcohol and/or drug services- Acute Deto x Alcohol and/or drug services- Acute Deto x Alcohol and/or drug services- Acute Deto x Alcohol and/or drug services- Acute Deto x DRUG TEST PRSMV DIR OPT OBS Alcohol and/or drug services- Acute Deto x Alcohol and/or drug services- Acute Deto x Alcohol and/or drug services- Acute Deto x Alcohol and/or drug services- Acute Deto x Alcohol and/or drug services- Acute Deto x Alcohol and/or drug services- Acute Deto x DRUG TEST PRSMV DIR OPT OBS Alcohol and/or drug services- Acute Deto x Advance Directives Directive Yes / No Effective Date File Name No Information Encounters Encounter Description Practice Location Reason(s) For Visit Diagnoses Date Provider Providers Copied on Encounter [facility], [address] [place] [address], [id number] , tel:[phone] [facility] No Information 1 [facility]. [address] [place] [address], [id number], [place]. tel:[phone] OFFICE/OUTPA TIENT VISIT, [facility], [address], [place], [id number] , [place] tel:[phone] [facility] Med refills (chief complaint) Body mass index [BMI] 36.0-36.9, adultBipolar 1 disorderRheumat oid arthritis involving multiple sites, unspecified whether rheumatoid factor present 1 Pavlock DO Max. [address], [place], [id number], [place]. tel:[phone] OFFICE/OUTPA TIENT VISIT, [facility], [address], [place], [id number] , [place] tel: [phone] [facility] check up (chief complaint)d epression (chief complaint) Body mass index [BMI] 35.0-35.9, adultBipolar 1 disorderRheumat oid arthritis involving multiple sites, unspecified whether rheumatoid factor presentChronic hepatitis C without hepatic coma 1 [facility] [address], [place], [id number], [place]. tel:[phone] [facility], [address], [place], [id number] , [place] tel: [phone] [facility] No Information 1 [facility] DO Max. [address], [place], [id number], [place]. tel:[phone] OFFICE/OUTPA TIENT VISIT, [facility], [address], [place], [id number] , [place] tel: [phone] [facility] est care (chief complaint)M usculoskele ada pain (chief complaint) Body mass index [BMI] 36.0-36.9, adultBipolar 1 disorderRheumat oid arthritis involving multiple sites, unspecified whether rheumatoid factor presentFibromya lgiaChronic hepatitis C without hepatic comaMigraine aura without headacheEdema, unspecified type 1 [facility] Max. [address], [place], [id number], [place]. tel:[phone] [facility], [address], [place], [id number] , [place] tel: [phone] [facility] Amphetamine or other stimulant withdrawalOpioi d dependence with withdrawal 1 [facility] DO Max. [address], [place], [id number], [place]. tel:[phone] [facility], [address] [place] [address], [id number] , [place] tel: [phone] [facility] meth dependence (chief complaint) Amphetamine or other stimulant withdrawalOpioi d dependence with withdrawal 1 Valentin Gould. [address], [place], [id number], [place]. tel:[phone] [facility], [address], [place], [id number] , [place] tel: [phone] [facility] Amphetamine or other stimulant withdrawalOpioi d dependence with withdrawalEncou nter for test, result negative 1 Pavlock DO Max. [address], [place], [id number], [place]. tel:[phone] [facility], [address], [place], [id number] , [place] tel: [phone] [facility] Amphetamine or other stimulant withdrawalOpioi d dependence with withdrawalEncou nter for test, result negative 1 [facility] DO Max. [address], [place], [id number], [place]. tel:[phone] [address] [place] [address], [address] [place] [address], [id number] , [place] tel: [phone] [facility] Cocaine dependence with withdrawalEncou nter for test, result negativeSegment al and somatic dysfunction of cervical region 8 Sid Marin. [address], [place], [id number], [place]. tel:[phone] [facility], [address], [place], [id number] , [place] tel:[phone] [facility] Dental emergency (chief complaint) Encounter for screening for dental disorders 8 Isael Rae. [address] [place], [address], [place]. tel:[phone] [facility], [address], [place], [id number] , [place] tel:[phone] [facility] Spine Care (chief complaint) Cocaine dependence with withdrawalEncou nter for test, result negativeSegment al and somatic dysfunction of cervical region 8 Sid Marin. [address], [place], [id number], [place]. tel:[phone] 623 [facility], [address], [place], [id number] , [place] tel:[phone] [facility] Cocaine dependence with withdrawalEncou nter for test, result negativeSegment al and somatic dysfunction of cervical region 8 Visci DO Giraldo. [address], [place], [id number], [place]. tel:[phone] [facility], [address], [place], [id number] , [place] tel:[phone] [facility] Cocaine dependence with withdrawalEncou nter for test, result negativeSegment al and somatic dysfunction of cervical region 8 Sid Marin. [address], [place], [id number], [place]. tel:[phone] [facility], [address], [place], [id number] , [place] tel:[phone] [facility] Cocaine dependence with withdrawalEncou nter for test, result negativeSegment al and somatic dysfunction of cervical region 8 Sid Marin. [address], [place], [id number], [place]. tel:[phone] [facility], [address], [place], [id number] , [place] tel:[phone] [facility] No Information 8 Sid Marin. [address], [place], [id number], [place]. tel:[phone] [facility], [address], [place], [id number] , [place] tel:[phone] [facility] abuse (chief complaint)S pine Care (chief complaint) Cocaine dependence with withdrawalSegme ntal and somatic dysfunction of cervical region 8 Jenny Kim. [address], [place], [id number], [place]. tel:[phone] [facility], [address], [place], [id number] , [place] tel:[phone] [facility] Cocaine dependence with withdrawalEncou nter for test, result negativeSegment al and somatic dysfunction of cervical region 8 Visci Enzo. [address], [place], [id number], [place]. tel:[phone] [facility], [address], [place], [id number] , [place] tel:[phone] [facility] Cocaine dependence with withdrawalEncou nter for test, result negativeSegment al and somatic dysfunction of cervical region 8 Visci DO Giraldo. [address], [place], [id number], [place]. tel:[phone] [facility], [address] [place] [address], [id number] , [place] tel:[phone] [facility] Cocaine dependence with withdrawalEncou nter for test, result negativeSegment al and somatic dysfunction of cervical region 8 Visci Enzo. [address], [place], [id number], [place]. tel:[phone] [facility], [address], [place], [id number] , [place] tel:[phone] [facility] Spine Care (chief complaint) Cocaine dependence with withdrawalEncou nter for test, result negativeSegment al and somatic dysfunction of cervical region 8 Visci Enzo. [address], [place], [id number], [place]. tel:[phone] [facility], [address], [place], [id number] , [place] tel:[phone] [facility] No Information 8 Visci DO Giraldo. [address], [place], [id number], [place]. tel:[phone] [facility], [address], [place], [id number] , [place] tel: [phone] [facility] Cocaine dependence with withdrawalEncou nter for test, result negative 8 Visci DO Enzo. [address], [place], [id number], [place]. tel:[phone] [facility], [address], [place], [id number] , [place] tel: [phone] [facility] Cocaine dependence with withdrawalEncou nter for test, result negative 8 Visci DO Enzo. [address], [place], [id number], [place]. tel:[phone] [facility], [address] [place] [address], [id number] , [place] tel: [phone] [facility] cocaine/met hamphetamin e abuse (chief complaint) Cocaine dependence with withdrawal 8 Jenny Kim. [address], [place], [id number], [place]. tel:[phone] [facility], [address], [place], [id number] , [place] tel: [phone] [facility] Cocaine dependence with withdrawalEncou nter for test, result negative 8 Visci DO Enzo. [address], [place], [id number], [place]. tel:[phone] [facility], [address], [place], [id number] , [place] tel: [phone] [facility] Cocaine dependence with withdrawalEncou nter for test, result negative 0 8 Visci DO Enzo. [address], [place], [id number], [place]. tel:[phone] Family History Family Member Type Diagnosis Age At Onset Maternal grandmother Problem (finding) chronic obstruc tive lung disease Maternal grandmother Problem (finding) asthma Mother Problem (finding) chronic obstructive tiffany g disease Mother Problem (finding) asthma Mother Problem (finding) hypertension Payers Payer name Insurance type Covered green party ID Authoriza tion(s) No Information Social History Type Description Quantity Date Captured Comments Alcohol Use Details Unknown Caffeine Use Details Unknown Tobacco Use Status Smoking Status No Information Sex Female Sexual Orientation Straight or heterosexual Gender Identity Female Chief Complaint And Reason For Visit No Information Reason For Referral Reason For Referral No Information Plan Of Treatment Date Type Action Status Goal Tobacco cessation counseling completed Goal Dietary management education , guidance, and counseling completed Goal Dietary management education , guidance, and counseling completed Goal Tobacco cessation counseling completed Goal Dietary management education , guidance, and counseling completed Goal Tobacco cessation counseling completed Referral Ordered: Rheumatology (related to Rheumatoid arthritis involving multiple sites, unspecified whether rheumatoid factor present) ordered Referral Ordered: Rheumatology (related to Rheumatoid arthritis involving multiple sites, unspecified whether rheumatoid factor present) ordered Referral Ordered: Gastroenterology (related to Chronic hepatitis C without hepatic coma) ordered Referral Ordered: Referrals: Gastroenterology ordered Referral Ordered: Referrals: Rheumatology ordered Referral Ordered: [place] Exam Of ABD Limited ordered History Of Present Illness Encounter Date Complaint History Of Prese nt Illness Med refills Patient presents today for mediation refills, pt reports that her sleep has been recently disrupted by nocturia. Pt states that her joints all over her body have been stiff and painful. Davon RN ,above was reviewed and agreed with P depression This is a follow up visit. There is improvement of initial symptoms. The patient reports functioning as very difficult. The patient presents with compulsive thoughts, depressed mood, difficulty concentrating, difficulty staying asleep, fatigue and feelings of guilt but denies difficulty falling asleep, excessive worry or thoughts of or suicide. The patient's risk factors include drug abuse and financial worries. The depression is aggravated by lack of sleep. The patient's relieving factors are a poor response to medication (invega). The depression is associated with chronic pain, headache and irritability. The patient denies any nausea, sweating, trembling, urinary frequency, vomiting and weight gain. check up Patient would donald mehta to discuss medication changes, Patient verbalizes generalized pain. Pt states that she feels really tired today. No other complaints. Davon HECK est care Patient would donald mehta to est care with a PCP. Patient states that she was established previously in [place], with Dr Mike Newman. Patient reports that she has had multiple health problems including substance abuse. Patient has had swelling in her feet and lower legs for months , patient reports having had a venous duplex study of BLE with negative result, BNP labs with neg results, and echocardiogram with a negative result. Patient states that she has a hx of RA and fibromyalgia. Patient reports chronic lower back pain, patient has no hx of physical therapy, pain management, or back surgery. Patient reports having a sleep study completed with a negative result, to rule out narcolepsy and sleep apnea. pt reports hx of Bipolar 1 with schizoaffective disorder. No other complaints. Davon HECK Musculoskeletal pain Severity [place] is mild-moderate. It occurs constantly and is fluctuating. The pain is aggravated by movement. The pain is relieved by heat, pain/RX meds and mobility. Associated symptoms include crepitus, decreased mobility, difficulty initiating sleep, joint tenderness, nocturnal pain, numbness, spasms and swelling. Pertinent negatives include bruising, joint instability, limping, locking and popping. meth dependence 34 year old nayla le checked in to detox yesterday and reports last using meth yesterday. She typically injects 2-3g/day and has been using meth for 17 years. She is also on suboxone that she intends to continue. She has attended detox twice before with the last being 2019.surgical hx- noneallergies- erythromycin, NSAID's, sulfameds- nonetobacco- 1 ppdalcohol- noneplans upon completing detox- doesn't know Dental emergency UR-8pain Spine Care Objective:Leon john nd tender sub-occipital muscles, cervical paravertebral musculature, tight cervicobrachial muscles, tight trapezius muscle, and intrascapular muscles. Leg length (PD) Rt. inch. Trigger points at traps Rt. & Lt.Somatic dysfunction & hypomobile subluxation Levels: C1-T2Bjspmanqyc/Plan:Plan and todays treatment: Discussed treatment plan and options with the patient. Answered all questions. Low force (SMT). Torque Release Technique at levels: C1 Rt.Auriculotherapy.Frequency of care: Treatment 2-3x while in detox.Goals: Reduce physical signs of subluxation, reduce symptomatology and increase patient comfort during detox. Spine Care Objective:Taut a nd tender sub-occipital muscles, cervical paravertebral musculature, tight cervicobrachial muscles, tight trapezius muscle, and intrascapular muscles. Leg length (PD) Rt. inch. Trigger points at traps Rt. & Lt.Somatic dysfunction & hypomobile subluxation Levels: C1-I8Iszmdcunqp/Plan:Plan and todays treatment: Discussed treatment plan and options with the patient. Answered all questions. Low force (SMT). Torque Release Technique at levels: C1 Rt.Auriculotherapy.Frequency of care: Treatment 2-3x while in detox.Goals: Reduce physical signs of subluxation, reduce symptomatology and increase patient comfort during detox. abuse H&P and physical exam completed on 08/28/2017 for prior admission to detox center. Patient denies any changes in health history since that exam. Spine Care Objective:Taut a nd tender sub-occipital muscles, cervical paravertebral musculature, tight cervicobrachial muscles, tight trapezius muscle, and intrascapular muscles. Leg length (PD) Rt. inch. Trigger points at traps Rt. & Lt.Somatic dysfunction & hypomobile subluxation Levels: C1-S8Kxlrhkzxsq/Plan:Plan and todays treatment: Discussed treatment plan and options with the patient. Answered all questions. Low force (SMT). Torque Release Technique at levels: C1 Rt.Auriculotherapy.Frequency of care: Treatment 2-3x while in detox.Goals: Reduce physical signs of subluxation, reduce symptomatology and increase patient comfort during detox. cocaine/methamphetamine abuse 31 y/o female presented to the detox center yesterday for acute cocaine/meth abuse withdrawal. States she has attempted to quit in the past but has never been in a detox center before. Speaks of her 9 y/o son, Sukhdev- he is her push to get clean. He is staying with her mom. Medical hx- Hep C+, oral herpes- type 1, bipolar- mixedAllergies- tylenol, NSAIDS, elavil, torodal, morphine, lyrica, erythromycin, pristiqmeds- Vistaril 25mg 2-4 caps 4 times daily prn Ciproflaxacin 500mg oral BID Doxycylcine Hyclate 100mg oral BID Valtrex 1gm oral dailysmoker- 1ppd x12 yearsalcohol- noneillicit drug use- percocet, meth, and TCH. Been using since her 20s. Last use IV percocet and meth 08/25/17. Surgical hx- hysterectomy, colonoscopy, exp laps, trina, appy, . Functional Status Date Functional Assessmen t No Information Instructions Date Instruction Additional Infor darcy Giving encouragement to exercise Related to Body mass index [BMI] 36.0-36.9, adult Dietary management e ducation, guidance, and counseling Related to Body mass index [BMI] 36.0-36.9, adult Dietary management e ducation, guidance, and counseling Related to Body mass index [BMI] 35.0-35.9, adult Giving encouragement to exercise Related to Body mass index [BMI] 35.0-35.9, adult Dietary management e ducation, guidance, and counseling Related to Body mass index [BMI] 36.0-36.9, adult Giving encouragement to exercise Related to Body mass index [BMI] 36.0-36.9, adult Assessments Type Assessment Date No Information Patient Care Teams Name Effective Dates (start - stop) Status Members No Information
--- OUTSIDE RECORDS SUMMARY | 2024-10-05 10:22 | XMS_ITS | Clinical Summary ---
Author Organization [facility] tem Address [id number] [address] [place] [address] Care Team Providers Care Latin Professor Name Role Phone No Pcp, No Pcp [...] represent a complete record from that organization. [id number] A-calcium &mins (THERAGRAN-M) 9 mg iron-400 mcg [...] 3:45 PM 10/08/2017 5:38 PM Care Teams Latin Professor Relationship Specialty Start Date End Date No Pcp, [place] [address] PCP - General Family Medicine 10/06/17
--- OUTSIDE RECORDS SUMMARY | 2024-10-05 10:22 | XMS_ITS | Clinical Summary ---
Author Organization [facility] Address [address] [place] [address] Care Team Providers Care Sorter Operator Name Role Phone Barry House MD Primary Care Provider [phone] Allergies No known active allergies Medications Abilify 30 MG tablet 5 Active Mobic 15 MG tablet 5 Active methylPREDNISol one (Medrol Dospak) 4 MG tabletsIndicati ons:Sprain of anterior talofibular ligament of right ankle, initial encounter Follow schedule on MEDROL PACK package instructions to be used as directed 21 tablet 5 Active Active Problems No known active problems Encounters Date Type Department Care Team Description 10/03/2024 Clinisync Result Encounter [facility] External Department Unsolicited Serg Blanca, DPM [facility] 10/03/2024 Clinisync Result Encounter [facility] External Department Unsolicited Serg Blanca, DPM [facility] 09/16/2024 Orders Only [facility] [address] [place] [phone] Christine Bates Preop examination 09/14/2024 4:20 PM EDT Office Visit [facility] [address] [place] [phone] Serg Blanca, DPM FAC[facility]AS Osteochondritis dissecans of right ankle (Primary Dx); Solitary bone cyst of right foot; Other synovitis and tenosynovitis, right ankle and foot 09/14/2024 Telephone [facility] [address] [place] [address] Serg Blanca, DPM FAC[facility]AS 09/14/2024 Bamboo flowsheet [facility] [address] [place] [address] Serg Blnaca, DPM [facility] 09/06/2024 3:30 PM EDT Office Visit [facility] [address] [place] [phone] Yared Terrazas, DPM Sprain of anterior talofibular ligament of right ankle, initial encounter (Primary Dx); Contracture of right ankle; Solitary bone cyst of right foot; Osteochondritis dissecans of right ankle 09/06/2024 Bamboo flowsheet [facility] [address] [place] [address] [phone] Yared Terrazas, DPM 09/05/2024 9:00 AM EDT Ancillary Procedure [facility] MR [address] [place] [address] Solitary bone cyst of right foot 09/05/2024 Travel 08/29/2024 3:20 PM EDT Office Visit [facility] [address] [place] [address] [phone] Yared Terrazas, DPM Sprain of anterior talofibular ligament of right ankle, initial encounter (Primary Dx); Solitary bone cyst of right foot; Contracture of right ankle 08/29/2024 Bamboo flowsheet [facility] [address] [place] [address] Yared Terrazas, DPM 08/08/2024 3:55 PM EDT Ancillary Procedure [facility] [address] [place] [address] 08/08/2024 3:50 PM EDT Ancillary Procedure [facility] [address] [place] [address] 08/08/2024 3:40 PM EDT Office Visit [facility] [address] [place] [phone] Yared Terrazas DPM Sprain of anterior talofibular ligament of right ankle, initial encounter (Primary Dx); Solitary bone cyst of right foot; Contracture of right ankle 08/08/2024 Bamboo flowsheet [facility] [address] [place] [phone] Yared Terrazas DPM 08/01/2024 Travel from Last 3 Months Family History Medical History Relation Name Comments Cancer Maternal Grandfather Júnior Thierry Diabetes Maternal Grandmother Gabrielle Allen Osteoporosis Mother Tracie [place] Ulcerative colitis Mother Tracie [place] Relation Name Status Comments Maternal Grandfather Júnior Thierry Alive Maternal Grandmother Gabrielle [place] Alive Mother Tracie [place] Alive Social History Tobacco Use Types Packs/Day Years Used Date Smoking Tobacco: Every Day Smokeless Tobacco: Never Tobacco Cessation:Ready to Q uit: Not Asked; Counseling Given: Yes Alcohol Use Standard Drinks/Week Comments Not Currently 0 (1 standard drink = 0.6 oz pur e alcohol) Comments Unknown Sex and Gender Information Value Date Recorded Sex Assigned at Not on file Legal Sex Female 7:25 PM EDT Gender Identity Not on file Sexual Orientation Not on file Last Filed Vital Signs Vital Sign Reading Time Taken Comments Blood Pressure 124/74 09/14/2024 4:38 PM EDT Pulse 74 09/14/2024 4:38 PM EDT Temperature - - Respiratory Rate 16 09/06/2024 3:30 PM EDT Oxygen Saturation - - Inhaled Oxygen Concentration - - Weight 126 kg (278 lb) 09/14/2024 4:38 PM EDT Height 170.2 cm (5' 7 ) 09/14/2024 4:38 PM EDT Body Mass Index 43.54 09/14/2024 4:38 PM EDT Plan of Treatment Upcoming Encounters Date Type Department Care Team ([facility] st Contact Info) Description 10/05/2024 4:00 PM EDT [facility] [address] [facility] [place] [address] Serg Blanca, DPM FAC[facility]AS [address] [facility] [place] [address] 10/18/2024 9:20 AM EDT Office Visit [facility] [address] [place] [phone] Serg Blanca, DPM [facility]AC[facility]AS [address] [place] [address] Health Maintenance Due Date Last Done Comments HPV/Cotest 2014 Cervical Cancer Screening 11/07/2017 Pap Smear 11/07/2017 11/07/2014 Influenza Vaccine (Season Ended) 2024 02/03/2020, 01/27/2019, 03/02/2018, Additional history exists Procedures Procedure Name Priority Date/Time Associated Diagnosis Comments ALL BASIC METABOLIC PANEL Routine 10/03/2024 12:18 PM EDT ALL CBC WITH AUTO DIFF Routine 10/03/2024 12:18 PM EDT ECG 12-LEAD 10/03/2024 11:53 AM EDT MR FOOT RIGHT WO IV CONTRAST Routine 09/05/2024 10:08 AM EDT Solitary bone cyst of right foot XR FOOT 3+ VIEWS RIGHT Routine 08/08/2024 3:53 PM EDT Sprain of anterior talofibular ligament of right ankle, initial encounter XR ANKLE 3+ VIEWS RIGHT Routine 08/08/2024 3:45 PM EDT Sprain of anterior talofibular ligament of right ankle, initial encounter from Last 3 Months Results * ALL CBC WITH AUTO DIFF (10/03/2024 12:18 PM EDT) TBH WBC 5.8 4.0 - 11.0 10 3/uL TBH TBH RBC 4.42 4.20 - 5.40 10 6/uL TBH TBH HGB 13.5 12.0 - 16.0 g/dL TBH TBH HCT 40.0 36.0 - 48.0 % TBH TBH MCV 90.5 81.0 - 99.0 fL TBH TBH MCH 30.5 26.7 - 34.0 pg TBH TBH MCHC 33.8 29.9 - 35.2 g/dL TBH TBH RDW 11.9 11.0 - 15.0 % TBH TBH PLT 199 150 - 450 10 3/uL TBH TBH MPV 10.6 9.5 - 13.5 fL TBH NEUTROPHILS PERCENT AUTO 67.8 43.0 - 75.0 % TBH LYMPHOCYTES PERCENT AUTO 25.0 20.5 - 60.0 % TBH MONOCYTES PERCENT AUTO 4.8 1.7 - 12.0 % TBH TBH EO % 2.1 0.9 - 7.0 % TBH BASOPHILS PERCENT AUTO 0.3 0.2 - 2.0 % TBH IMMATURE GRANULOCYTES PCT AUTO 0.0 0.0 - 0.5 % TBH NEUTROPHILS ABSOLUTE AUTO 4.0 1.4 - 6.5 10 3/uL TBH LYMPHOCYTES ABSOLUTE AUTO 1.5 1.2 - 3.8 10 3/uL TBH MONOCYTES ABSOLUTE AUTO 0.3 0.3 - 0.8 10 3/uL TBH TBH EO # 0.1 0.0 - 0.7 10 3/uL TBH BASOPHILS ABSOLUTE AUTO 0.0 0.0 - 0.1 10 3/uL TBH IMMATURE GRANULOCYTES ABS AUTO 0.00 0.00 - 0.03 10 3/uL TBH 10/03/2024 12:1 8 PM EDT 10/03/2024 12:20 PM EDT Narrative CL[facility] - 10/03/2024 12:44 PM EDT Serg Blanca DPM FACFAS [facility] Final Re sult [facility] * (ABNORMAL) ALL BASIC METABOLIC PANEL (10/03/2024 12:18 PM EDT) SODIUM 140 136 - 145 mmol/L TBH POTASSIUM 3.5 3.5 - 5.1 mmol/L TBH CHLORIDE 102 98 - 107 mmol/L TBH CARBON DIOXIDE 26.7 21.0 - 32.0 mmol/L TBH ANION GAP 14.8 TBH GLUCOSE 129(H) 74 - 106 mg/dL TBH BLOOD UREA NITROGEN 11.0 7.0 - 18.0 mg/dL TBH CREATININE 0.56 0.55 - 1.02 mg/dL TBH TBH EGFR-AF [place] >60 >=60 mL/min/1.7 3m 2 TBH TBH EGFR-NON AF [place] >60 >=60 mL/min/1.7 3m 2 TBH BUN CREATININE RATIO 19.6 TBH CALCIUM 9.3 8.5 - 10.1 mg/dL TBH 10/03/2024 12:1 8 PM EDT 10/03/2024 12:20 PM EDT Narrative CLINISYNC - 10/03/2024 12:46 PM EDT Serg Blanca DPM FACFAS [facility] Final Re sult [facility] * ECG 12-LEAD (10/03/2024 11:53 AM EDT) Anatomical Region Laterality Modality Other 10/03/2024 11:5 3 AM EDT Narrative 10/03/2024 1:22 [place] [address] Electrocardiograph Report Signed Patient: MAURY FRIED MR#: [id number] : 1985 Acct:[id number] Age/Sex: 38 / F ADM Date: 10/03/24 Loc: CARD Attending Dr: SERG BLANCA M.D. Ordering Physician: SERG BLANCA M.D. Date of Service: 10/03/24 Procedure(s): ECG 12 lead Accession Number(s): [id number] cc: [facility] Test Date: 2024-10-03 Pat Name: MAURY FRIED Department: Room: - Gender: Female Foundation Digger: : 1985 Requested By: Order Number: [id number] Cedric MD: ANJEL GILBERT M.D. Measurements Intervals [place] Rate: 77 P: 59 WV: 144 QRS: 72 QRSD: 102 T: 56 QT: 381 QTc: 431 Interpretive Statements SINUS RHYTHM Normal ECG Compared to ECG 10/14/2020 21:25:35 No significant changes Electronically Signed On 10-03-2024 13:22:02 EDT by ANJEL GILBERT M.D. Dictated By: ANJEL GILBERT Signed By: 10/03/24 132 DD/ 52 TD/TT: Solar Resource Assessor: Procedure Note Radiology, Radiologist, MD - 10/03/2024 [place] [address] Electrocardiograph Report Signed Patient: MAURY FRIED RMR#: [id number] : 1985Acct:[id number] Age/Sex: 38 / FADM Date: 10/03/24 Loc: CARD Attending Dr: SERG BLANCA M.D. Ordering Physician: SERG BLANCA M.D. Date of Service: 10/03/24 Procedure(s): ECG 12 lead Accession Number(s): [id number] cc: [facility] Test Date: 2024-10-03 Pat Name: MAURY FRIED Department: Room: - Gender: Female Foundation Digger: : 1985 Requested By: Order Number: [id number] Reading MD: ANJEL GILBERT M.D. Measurements Intervals [place] Rate: 77 P: 59 WV: 144 QRS: 72 QRSD: 102 T: 56 QT: 381 QTc: 431 Interpretive Statements SINUS RHYTHM Normal ECG Compared to ECG 10/14/2020 21:25:35 No significant changes Electronically Signed On 10-03-2024 13:22:02 EDT by ANJEL GILBERT M.D. Dictated By: ANJEL GILBERT Signed By:10/03/24 132 DD/ 1153 TD/TT: Solar Resource Assessor: Serg Blanca DPM [facility]AC[facility] IMAGING Final Result * MR foot right wo IV contrast (09/05/2024 10:08 AM EDT) Anatomical Region Laterality Modality Lower Extremities, Foot Right Magnetic Resonance 09/06/2024 9:02 AM EDT Impressions 09/06/2024 9:21 AM EDT No evidence of recent fracture or stress reaction. 4 mm area of minimal concavity of the medial talar dome is nonspecific and may be degenerative or due to remote displaced osteochondral lesion. ELECTRONICALLY SIGNED BY: Zia Alexander DO Narrative 09/06/2024 9:21 AM EDT EXAM: MR FOOT RIGHT WO IV CONTRAST HISTORY: Lateral foot pain. Navicular bone cyst COMPARISON : None available TECHNIQUE: Multiplanar multisequence MRI of the foot was performed without contrast. FINDINGS: No evidence of recent fracture or stress reaction. Minimal degenerative changes of the midfoot. 4 mm area of minimal concavity of the medial talar dome is nonspecific and may be degenerative or due to remote displaced osteochondral lesion. No associated bone marrow edema. Small joint effusion. A loose body is not definitively identified. No bone cyst or mass. Sinus tarsi fat is preserved. Achilles tendon and plantar fascia are intact. Flexor and extensor tendons are intact. Musculature of the foot is within normal limits. Subcutaneous soft tissue edema dorsally. Procedure Note Zia Alexander DO - 09/06/2024 EXAM: MR FOOT RIGHT WO IV CONTRAST HISTORY: Lateral foot pain. Navicular bone cyst COMPARISON : None available TECHNIQUE: Multiplanar multisequence MRI of the foot was performed withoutcontrast. FINDINGS: No evidence of recent fracture or stress reaction. Minimal degenerativechanges of the midfoot. 4 mm area of minimal concavity of the medial talardome is nonspecific and may be degenerative or due to remote displacedosteochondral lesion. No associated bone marrow edema. Small jointeffusion. A loose body is not definitively identified. No bone cyst ormass. Sinus tarsi fat is preserved. Achilles tendon and plantar fascia areintact. Flexor and extensor tendons are intact. Musculature of the foot iswithin normal limits. Subcutaneous soft tissue edema dorsally. IMPRESSION: No evidence of recent fracture or stress reaction. 4 mm area of minimal concavity of the medial talar dome is nonspecific andmay be degenerative or due to remote displaced osteochondral lesion. ELECTRONICALLY SIGNED BY: Zia Alexander DO us Yared Terrazas DPM IMG MRI PROCEDURES Final Re sult * XR foot 3+ views right (08/08/2024 3:53 PM EDT) Anatomical Region Laterality Modality Lower Extremities, Foot Right Radiogra phic Imaging Narrative 08/08/2024 4:10 PM EDT Imaging Result: Notable large cyst-like region to navicular tuberosity with negative fracture identified Yared Terrazas DPM IMG XR PROCEDURES Final Res ult * XR ankle 3+ views right (08/08/2024 3:45 PM EDT) Anatomical Region Laterality Modality Lower Extremities, Ankle Right Radiogr aphic Imaging Narrative 08/08/2024 3:46 PM EDT Imaging Result: Negative fractures identified with negative osteochondral defects with notable small navicular dorsal chip fracture which may be old in nature Yared Terrazas DPM IMG XR PROCEDURES Final Res ult from Last 3 Months Insurance [facility] Care Teams Sorter Operator Relationship Specialty Start Date End Date Barry House MD [address] [place] [address] PCP - General Family Medicine 08/08/24
--- OUTSIDE RECORDS SUMMARY | 2024-10-05 10:22 | XMS_ITS | Encounter Summary ---
Author Organization [facility] Address [address] [place] [address] Care Team Providers Care Tax Accounting Assistant Name Role Phone Barry House MD Primary Care Provider [phone] Encounter Details Date Type Department Care Team (Late st Contact Info) Description 10/03/2024 Clinisync Result Encounter [facility] External Department Unsolicited Serg Blanca, DPM [facility]AC[facility]AS [address] [place] [address] Social History Tobacco Use Types Packs/Day Years Used Date Smoking Tobacco: Every Day Smokeless Tobacco: Never Alcohol Use Standard Drinks/Week Comments Not Currently 0 (1 standard drink = 0.6 oz pur e alcohol) Comments Unknown Sex and Gender Information Value Date Recorded Sex Assigned at Not on file Legal Sex Female 7:25 PM EDT Gender Identity Not on file Sexual Orientation Not on file documented as of this encounter Plan of Treatment Upcoming Encounters Date Type Department Care Team (Late st Contact Info) Description 10/05/2024 4:00 PM EDT Office Visit [facility] [address] [place] [phone] Serg Blanca, DPM FACFAS [address] [place] [address] 10/18/2024 9:20 AM EDT Office Visit [facility] [address] [place] [phone] Serg Blanca, DPM FACFAS [facility] [place] [address] documented as of this encounter Procedures Procedure Name Priority Date/Time Associated Diagnosis Comments ALL CBC WITH AUTO DIFF Routine 10/03/2024 12:18 PM EDT ALL BASIC METABOLIC PANEL Routine 10/03/2024 12:18 PM EDT documented in this encounter Results * (ABNORMAL) ALL BASIC METABOLIC PANEL (10/03/2024 [...] 0.55 - 1.02 mg/dL TBH TBH EGFR-AF [place] >60 >=60 mL/min/1.7 3m 2 TBH TBH EGFR-NON AF [place] >60 >=60 mL/min/1.7 3m 2 TBH BUN CREATININE RATIO 19.6 TBH CALCIUM 9.3 8.5 - 10.1 mg/dL TBH 10/03/2024 12:1 8 PM EDT 10/03/2024 12:20 PM EDT Narrative [facility] - 10/03/2024 12:46 PM EDT Serg Blanca DPM FACFAS [facility] Final Re sult [facility] * ALL CBC WITH AUTO DIFF (10/03/2024 [...] Narrative [facility]INISYNC - 10/03/2024 12:44 PM EDT us Serg Blanca DPM FACFAS [facility] Final Re sult [facility] documented in this encounter Visit Diagnoses Not on filedocumented in this encounter Care Teams Tax Accounting Assistant Relationship Specialty Start Date End Date Barry House MD [address] [place] [address] PCP - General Family Medicine 08/08/24 documented as of this encounter
--- OUTSIDE RECORDS SUMMARY | 2024-10-05 10:22 | XMS_ITS | Encounter Summary ---
Author Organization [facility] Address [address] [facility] [place] [address] Care Team Providers Care Senior Director Of Strategy Name Role Phone Barry House MD Primary Care Provider [phone] Encounter Details Date Type Department Care Team (Late st Contact Info) Description 10/03/2024 Clinisync Result Encounter [facility] External Department Unsolicited Serg Blanca, DPM FACFAS [address] [place] [address] Social History Tobacco Use Types Packs/Day Years [...] EDT Office Visit [facility] [address] [place] [phone] Serg Blanca, DPM FACFAS [address] [place] [address] 10/18/2024 9:20 AM EDT Office Visit [facility] [address] [place] [phone] Serg Blanca, DPM FACFAS [address] [place] [address] [place] [phone] documented as of this encounter Procedures Procedure Name Priority Date/Time Associated Diagnosis Comments ECG 12-LEAD 10/03/2024 11:53 AM EDT documented in this encounter Results * ECG 12-LEAD (10/03/2024 11:53 AM EDT) Anatomical Region Laterality Modality Other 10/03/2024 11:5 3 AM EDT Narrative 10/03/2024 1:22 [place] [address] Electrocardiograph Report Signed Patient: MAURY FRIED MR#: [id number] : 1985 Acct:[id number] Age/Sex: 38 / F ADM Date: 10/03/24 Loc: CARD Attending Dr: SERG BLANCA M.D. Ordering Physician: SERG BLANCA M.D. Date of Service: 10/03/24 Procedure(s): ECG 12 lead Accession Number(s): [id number] cc: [facility] Test Date: 2024-10-03 Pat Name: MAURY FRIED Department: Room: - Gender: Female Entry Analyst: : 1985 Requested By: Order Number: [id number] Reading MD: ANJEL GILBERT M.D. Measurements Intervals [place] Rate: 77 P: 59 [place]: 144 QRS: 72 QRSD: 102 T: 56 QT: 381 QTc: 431 Interpretive Statements SINUS RHYTHM Normal ECG Compared to ECG 10/14/2020 21:25:35 No significant changes Electronically Signed On 10-03-2024 13:22:02 EDT by ANJEL GILBERT M.D. Dictated By: ANJEL GILBERT Signed By: 10/03/24 1322 DD/ 1153 TD/TT: Digital Learning Platforms Manager: Procedure Note Radiology, Radiologist, - 10/03/2024 [place] [address] Electrocardiograph Report Signed Patient: MAURY FRIED RMR#: [id number] : 1985Acct:[id number] Age/Sex: 38 / FADM Date: 10/03/24 Loc: CARD Attending Dr: SERG BLANCA M.D. Ordering Physician: SERG BLANCA M.D. Date of Service: 10/03/24 Procedure(s): ECG 12 lead Accession Number(s): [id number] cc: [facility] Test Date: 2024-10-03 Pat Name: MAURY FRIED Department: Room: - Gender: Female Entry Analyst: : 1985 Requested By: Order Number: [id number] Reading MD: ANJEL GILBERT M.D. Measurements Intervals [place] Rate: 77 P: 59 HI: 144 QRS: 72 QRSD: 102 T: 56 QT: 381 QTc: 431 Interpretive Statements SINUS RHYTHM Normal ECG Compared to ECG 10/14/2020 21:25:35 No significant changes Electronically Signed On 10-03-2024 13:22:02 EDT by ANJEL GILBERT M.D. Dictated By: ANJEL GILBERT Signed By:10/03/24 1322 DD/ 1153 TD/TT: Digital Learning Platforms Manager: Serg Blanca DPConnie FACFAS [facility] Final Result documented in this encounter Visit Diagnoses Not on filedocumented in this encounter Care Teams Senior Director Of Strategy Relationship Specialty Start Date End Date Barry House MD [address] [place] [address] PCP - General Family Medicine 08/08/24 documented as of this encounter
--- OUTSIDE RECORDS SUMMARY | 2024-10-05 10:35 | XMS_ITS | CCD ---
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 Role Phone Guille Abrams Unavailable Sherin House Primary Care Physician [phone] Krys Ramos Unavailable Unavailable HOY ., DR DUFF Primary Care Unavailable NABOR ., DR DAI Consulting Unavailable NABOR ., DR DAI Attending Unavailable NABOR ., DR DAI Admitting Unavailable HOY ., DR DUFF Primary Care Unavailable NABOR ., DR DAI Consulting Unavailable NABOR ., DR DAI Attending Unavailable NABOR ., DR DAI Admitting Unavailable GEMBUS, KIMBERLY Consulting Unavailable HOY ., DR DUFF Consulting Unavailable HOY ., DR DUFF Attending Unavailable HOY ., DR DUFF Admitting Unavailable HOY ., DR DUFF Primary Care Unavailable ZIEBER, DR DARRICK Swanson Consulting Unavailable HOY ., DR DUFF Primary Care Unavailable HOY ., DR DUFF Consulting Unavailable HOY ., DR DUFF Attending Unavailable HOY ., DR DUFF Admitting Unavailable Dumont, Malcom Consulting Unavailable HOY ., DR DUFF Primary Care Unavailable HOY ., DR DUFF Consulting Unavailable HOY ., DR DUFF Attending Unavailable HOY ., DR DUFF Admitting Unavailable ZIEBER, DR DARRICK Swanson Consulting Unavailable HOY ., DR DUFF Primary Care Unavailable NABOR ., DR DAI Attending Unavailable NABOR ., DR DAI Admitting Unavailable NABOR ., DR DAI Consulting Unavailable HOY ., DR DUFF Attending Unavailable HOY ., DR DUFF Admirasema Unavailable HOY ., DR DUFF Primary Care Unavailable NABOR ., DR DAI Consulting Unavailable NABOR ., DR DAI Attending Unavailable NABOR ., DR DAI Admitting Unavailable HOY ., DR DFUF Primary Care Unavailable NABOR ., DR DAI Consulting Unavailable NABOR ., DR DAI Attending Unavailable NABOR ., DR DAI Admitting Unavailable HOY ., DR DUFF Primary Care Unavailable HOY ., DR DUFF Primary Care Unavailable HOY ., DR DUFF Consulting Unavailable HOY ., DR DUFF Attending Unavailable HOY ., DR DUFF Admitting Unavailable ARROYO, DR GUILLE Rojo Consulting Unavailable HOY ., DR DUFF Primary Care Unavailable NABOR ., DR DAI Consulting Unavailable NABOR ., DR DAI Attending Unavailable NABOR ., DR DAI Admitting Unavailable NILL, iMguelina Swanson Attending Unavailable Sherin House Referring Unavailable NILL, Miguelina R Attending Unavailable NILL, Miguelina R Attending Unavailable NILL, Miguelina R Attending Unavailable NILL, Miguelina R Attending Unavailable NILL, Miguelina R Attending Unavailable NILL, Miguelina R Attending Unavailable NILL, Miguelina R Attending Unavailable NILL, Miguelina R Attending Unavailable NILL, Miguelina R Admitting Unavailable NILL, Miguelina R Attending Unavailable NILL, Miguelina Swanson Attending Unavailable NILL, Miguelina Swanson Attending Unavailable NILL, Miguelina R Attending Unavailable Sherin House Referring Unavailable MD Sherin House Primary Care Provider [phone] DO Walter Guillaume Emergency Provider Sherin House Primary Care Unavailable Walter Guillaume Attending Unavailable Walter Guillaume Admitting Unavailable DARRICK BENITEZ Admitting Unavailable DARRICK BENITEZ Attending Unavailable SHERIN HOUSE Primary Care Unavailable DARRICK BENITEZ Admitting Unavailable DARRICK BENITEZ Attending Unavailable SHERIN HOUSE Primary Care Unavailable SHERIN HOUSE Primary Care Unavailable MIGUELINA DOMINGUEZ Attending Unavailable DARRICK BENITEZ Consulting Unavailable Sherin House MD Primary Care Provider [phone] Unallocated , [place] Provider [facility] Sherin House MD Primary Care Provider [phone] Sherin House MD Primary Care Provider [phone] YARED TERRAZAS Attending Unavailable YARED TERRAZAS Referring Unavailable YARED TERRAZAS Referring Unavailable YARED TERRAZAS Attending Unavailable YARED TERRAZAS Referring Unavailable YARED TERRAZAS Attending Unavailable SERG MATA Attending Unavailable SHERIN HOUSE Primary Care Unavailable David Rayo Attending Unavailable David Rayo Admitting Unavailable SHERIN HOUSE Primary Care Unavailable David Rayo Attending Unavailable Allergies Allergy Classification Reported Allergen(s) Allergy Type Date of Onset Reaction(s) Facility (2 sources) Acetaminophen Drug Allergy Unknown [employer] Other (12 sources) Amitriptyline; Translations: [Amitriptyline] Drug Allergy 11-07-19 13 Eruption of skin (disorder) [facility] (12 sources) Cephalexin; Translations: [cephalexin] Drug Allergy 10-06-19 18 Unknown, Rash [facility] [place] (9 sources) Desvenlafaxine; Translations: [desvenlafaxine] Drug Allergy 11-21-19 24 rash, Eruption of skin (disorder) [facility] (13 sources) Erythromycin; Translations: [erythromycin] Drug Allergy 06-08-19 13 rash, Anaphylaxis (disorder) [facility] (3 sources) Ibuprofen Drug Allergy 11-21-19 24 vomiting [facility] (13 sources) NSAIDs; Translations: [Non-steroidal anti-inflammatory agent (substance)] Propensity to adverse reactions 09-07-19 13 Anaphylaxis (disorder) [facility] (6 sources) Propranolol Drug Allergy 09-07-19 13 rash [facility] (3 sources) Sulfacetamide Drug Allergy 11-21-19 24 Unknown, Unknown Reaction [facility] (10 sources) Sulfamethoxazole / Trimethoprim; Translations: [sulfamethoxazole-t rimethoprim] Drug Allergy 10-06-19 18 Unknown [facility] [place] (9 sources) Morphine; Translations: [morphine] Drug Allergy 10-06-19 18 Unknown [facility] (9 sources) pregabalin; Translations: [pregabalin] Drug Allergy 10-07-19 18 Swelling [facility] (7 sources) topiramate; Translations: [topiramate] Drug Allergy Unknown (qualifier value) [facility] (1 source) Acetaminophen Drug Allergy [facility] (2 sources) Amitriptyline Drug Allergy 11-21-19 Unknown Reaction [facility] (2 sources) Cephalexin; Translations: [Keflex] Drug Allergy [facility] (4 sources) Desvenlafaxine; Translations: [Pristiq] Drug Allergy 11-07-19 13 [facility] (2 sources) Ketorolac; Translations: [Toradol] Drug Allergy [facility] (2 sources) NSAIDs Drug allergy (disorder) 11-07-19 13 [facility] (2 sources) pregabalin Drug Allergy 11-06-19 17 [facility] (2 sources) Sulfamethoxazole / Trimethoprim; Translations: [Bactrim] Drug Allergy [facility] (2 sources) E.E.S. Drug allergy (disorder) 11-07-19 13 [facility] (1 source) Sulfamethoxazole / Trimethoprim; Translations: [sulfamethoxazole-t rimethoprim] Drug Allergy 10-06-19 18 [facility] (1 source) Tylenol Regular Strength; Translations: [Tylenol Regular Strength] Propensity to adverse reactions (disorder) [facility] (2 sources) Doxycycline; Translations: [doxycycline] Drug Allergy 11-21-19 blisters [facility] (2 sources) Sulfamethoxazole; Translations: [sulfamethoxazole] Drug Allergy 11-21-19 [facility] (2 sources) Sulfonamides (Antibiotic); Translations: [Sulfa (Sulfonamide Antibiotics)] Allergy to substance 11-21-19 [facility] (2 sources) Trimethoprim; Translations: [trimethoprim] Drug Allergy 11-21-19 [facility] (2 sources) erythromycin base; Translations: [erythromycin base] Allergy to substance 11-21-19 Vomiting, rash [facility] (2 sources) NSAIDS (Non-Steroidal Anti-Inflamma; Translations: [NSAIDS (Non-Steroidal Anti-Inflamma] Allergy to substance 11-21-19 Anaphylaxis [facility] (1 source) Amitriptyline Drug Allergy 11-21-19 [facility] (1 source) Cephalexin Drug Allergy 11-21-19 [facility] (1 source) Desvenlafaxine Drug Allergy 11-21-19 [facility] (1 source) Ibuprofen Drug Allergy 11-21-19 [facility] (1 source) Propranolol Drug Allergy 11-21-19 [facility] (1 source) Sulfacetamide Drug Allergy 11-21-19 [facility] (3 sources) Amitriptyline Drug Allergy 09-07-19 13 [facility] (3 sources) Desvenlafaxine Drug Allergy 01-21-20 13 [facility] (2 sources) Ketorolac Drug Allergy 10-07-19 18 [facility] (1 source) Acetaminophen; Translations: [Tylenol] Drug Allergy [facility] Medications Current Medications Medication Drug Class(es) Dates Sig (Normalized) Sig (Original) acetaminophen 325 mg / HYDROcodone bitartrate 5 mg oral tablet (1 source) Opioid Agonist Start: 12-17-2023 End: 12-17-2023 HYDROcodone-acetami nophen (NORCO) 5-325 MG per tablet Indications: H/O umbilical hernia repair , S/P left inguinal hernia repair Take 1 tablet by mouth every 6 hours as needed for Pain for up to 5 days. Intended supply: 5 days. Take lowest dose possible to manage pain Max Daily Amount: 4 tablets 20 tablet 12/17/2023 12/17/2023 Discontinued (Stop Taking at Discharge) albuterol 0.833 mg/ml / ipratropium bromide 0.167 mg/ml inhalation solution (1 source) Anticholinergic, beta2-Adrenergic Agonist Start: 12-17-2023 End: 12-18-2023 take 1 dose by inhalation once as needed 1 Dose, Inhalation, ONCE PRN, 1 dose, Starting on Amara 12/17/23 at 0944, Until Thu12/18/23 at 0944, Shortness of Breath, Wheezing, Initiate RT Bronchodilator Protocol: No, PACU only ampicillin 500 mg oral capsule (1 source) Penicillin-class Antibacterial Start: 01-23-2023 End: 02-06-2023 take 1 capsule by mouth four times daily ampicillin 500 mg Cap 500 mg = 1 cap(s), Oral, QID, X 7 day(s), # 28 cap(s), Refills(s) 1, Pharmacy: [facility] #[id number], 167, cm, 12/11/22 14:03:00 EDT, Height/Length Dosing, 114, kg, 12/11/22 14:03:00 EDT, Weight Dosing Start Date: 01/23/23 Stop Date: 02/06/23 Status: Ordered ARIPiprazole 30 mg oral tablet (20 sources) Atypical Antipsychotic Start: 07-17-2024 Abilify 30 MG tablet 07/17/2024 Active Start: 07-28-2022 take 1 tablet by bouchra th once daily Abilify 20 mg oral tablet 20 mg = 1 tab(s), Oral, Daily, Refills(s) 0 Start Date: 07/28/22 Status: Ordered Start: 03-08-2021 take 10 mg by mouth once daily Aripiprazole Active 10 MG PO Daily March 08, 2021 1:00am Start: 03-08-2021 Aripiprazole ( Abilify Maintena) 300 mg Suspension,Extended Rel Recon Active 300 MG IM Q28D@0900 March 08, 2021 1:00am Start: 06-03-2020 End: 03-06-2021 take 10 mg by mouth once daily Aripiprazole Discontinu ed 10 MG PO Daily June 03, 2020 1:00am March 06, 2021 9:35am atomoxetine 80 mg oral capsule (8 sources) Norepinephrine Reuptake Inhibitor Start: 07-28-2022 take 1 capsule by mouth once daily in the morning Strattera 80 mg oral capsule 80 mg = 1 cap(s), Oral, qAM, Refills(s) 0 Start Date: 07/28/22 Status: Ordered atomoxetine (STR ATTERA) 60 MG capsule Take 100 mg by mouth daily Active buprenorphine 8 mg / naloxone 2 mg sublingual film (9 sources) Partial Opioid Agonist, Opioid Antagonist Start: 05-27-2021 Suboxone 8 mg-2 mg sublingual film film, SubLingual, Daily, Refill(s) 0 Start Date: 05/27/21 Status: Ordered Start: 06-03-2020 Buprenorphine- Naloxone Active 1.5 FILM BUCCAL Daily June 03, 2020 1:00am Suboxone 2-0.5 M G 1/2 in morning and 1/2 afternoon and 1/2 in evening Sublingual three times daily Active calcium chloride 0.0014 meq/ml / potassium chloride 0.004 meq/ml / sodium chloride 0.103 meq/ml / sodium lactate 0.028 meq/ml injectable solution (1 source) Start: 12-17-2023 IntraVENous, at 100 mL/hr, CONTINUOUS, Starting on Amara 12/17/23 at 0715 docusate sodium 100 mg oral capsule (1 source) Start: 12-17-2023 End: 01-16-2024 take 1 capsule by mouth twice daily docusate sodium (COLACE) 100 MG capsule Take 1 capsule by mouth 2 times daily 60 capsule 12/17/2023 01/16/2024 Active fluticasone (2 sources) Corticosteroid Flonase Active gabapentin 800 mg oral tablet (9 sources) Anti-epileptic Agent Start: 03-06-2021 take 1 mg by mouth three times daily gabapentin 800 mg Tab mg tab(s), Oral, TID, Refills(s) 0 Start Date: 05/27/21 Status: Ordered take 1 tablet by bouchra every twenty-four hours Gabapentin 800 MG 1 tablet Orally Once a day Active 1 ml HYDROmorphone hydrochloride 1 mg/ml cartridge (2 sources) Opioid Agonist Start: 12-17-2023 0.25 mg, Intra VENous, EVERY 5 MIN PRN, 4 doses, Starting on Amara 12/17/23 at 0944, Until Discontinued, Pain Moderate (4-6), For Phase I. If Phase II oral narcotics have been administered in the last 60 minutes, do not administer IV narcotics unless specifically approved by provider., PACU only Start: 12-17-2023 0.5 mg, IntraV ENous, EVERY 5 MIN PRN, 4 doses, Starting on Amara 12/17/23 at 0944, Until Discontinued, Pain Severe (7-10), For Phase I. If Phase II oral narcotics have been administered in the last 60 minutes, do not administer IV narcotics unless specifically approved by provider., PACU only meloxicam 15 mg oral tablet (14 sources) Nonsteroidal Anti-inflammatory Drug Start: 07-25-2024 Mobic 15 MG tablet 07/25/2024 Active methocarbamol 750 mg oral tablet (1 source) Muscle Relaxant Start: 12-17-2023 End: 12-27-2023 take 1 tablet by mouth four times daily methocarbamol (ROBAXIN-750) 750 MG tablet Take 1 tablet by mouth 4 times daily for 10 days 40 tablet 12/17/2023 12/27/2023 Active methylPREDNISolone (16 sources) Corticosteroid Start: 08-29-2024 methylPREDNISolone (Medrol Dospak) 4 MG tablets Indications: Sprain of anterior talofibular ligament of right ankle, initial encounter Follow schedule on MEDROL PACK package instructions to be used as directed 21 tablet 08/29/2024 Active Start: 08-08-2024 End: 08-29-2024 methylPREDNISolone (Medrol D ospak) 4 MG tablets Indications: Sprain of anterior talofibular ligament of right ankle, initial encounter Follow schedule on MEDROL PACK package instructions to be used as directed 21 tablet 08/08/2024 08/29/2024 Discontinued (Therapy completed) Start: 08-08-2024 methylPREDNISo lone (Medrol Dospak) 4 MG tablets Indications: Sprain of anterior talofibular ligament of right ankle, initial encounter Follow schedule on MEDROL PACK package instructions to be used as directed 21 tablet 08/08/2024 Active 2 ml metoclopramide 5 mg/ml prefilled syringe (1 source) Dopamine-2 Receptor Antagonist Start: 12-17-2023 End: 12-18-2023 10 mg, IntraVENous, ONCE PRN, 1 dose, Starting on Amara 12/17/23 at 0944, Until Thu12/18/23 at 0944, Nausea, Secondary antiemetic therapy., PACU only 24 hr mirabegron 50 mg extended release oral tablet (6 sources) beta3-Adrenergic Agonist Start: 05-27-2021 take 1 tablet by mouth once daily Myrbetriq 50 mg oral tablet, extended release 50 mg = 1 tab(s), Oral, Daily, # 30 tab(s), Refills(s) 11, Pharmacy: [address], 170, cm, 05/27/21 12:27:00 EST, Height/Length Dosing, 105, kg, 05/27/21 12:27:00 EST, Weight Dosing Start Date: 05/27/21 Status: Ordered naloxone 0.4 mg in 10 mL sodium chloride syringe (1 source) Start: 12-17-2023 IntraVENous, PRN, Opioid Reversal, Starting on Amara 12/17/23 at 0944, PRN if respiratory rate is less than 6/min and patient is difficult to arouse then notify physician STAT. Mix 9 mL of sodium chloride 0.9% with 0.4 mg (1 mL) of naloxone (NARCAN) in 10 mL syringe. (Note: dilution is 0.04 mg/mL) Give 0.08 mg (2 mL of special dilution), slow IV push, repeat up to 0.4 mg (10 mL) or until patient is responsive to physical stimulation and respiratory rate is equal to or greater than 6 breaths/min. Continue to observe, if no response within 3 minutes of administration of 0.4 mg (10 mL) total, repeat dose (0.4 mg as administered previously). Concentration 0.04 mg/mL, PACU only nicotine 2 mg chewing gum (1 source) Cholinergic Nicotinic Agonist Start: 03-08-2021 Nicotine (Polacrilex) Active 2 MG BUCCAL Q2H 60 March 08, 2021 1:00am ondansetron 4 mg oral tablet (2 sources) Serotonin-3 Receptor Antagonist Start: 12-17-2023 take 1 tablet by mouth three times daily as needed for nausea ondansetron (ZOFRAN) 4 MG tablet Take 1 tablet by mouth 3 times daily as needed for Nausea or Vomiting 15 tablet 12/17/2023 Active Start: 11-21-2023 End: 11-21-2023 ondansetron (ZOFRAN) injecti on 4 mg oxyCODONE hydrochloride 5 mg oral tablet (3 sources) Opioid Agonist Start: 12-17-2023 End: 12-19-2023 take 1 tablet by mouth every eight hours as needed for pain oxyCODONE (ROXICODONE) 5 MG immediate release tablet Indications: H/O umbilical hernia repair , S/P left inguinal hernia repair Take 1 tablet by mouth every 8 hours as needed for Pain for up to 2 days. Intended supply: 3 days. Take lowest dose possible to manage pain Max Daily Amount: 15 mg 5 tablet 12/17/2023 12/19/2023 Active Start: 12-17-2023 take 1 dose by mouth once 5 mg , Oral, ONCE, 1 dose, On Amara 12/17/23 at 1130 Start: 12-17-2023 End: 12-17-2023 take 1 dose by mouth once 5 mg, Oral, ONCE PRN, 1 dose , Starting on Thu12/17/23 at 0944, Until Thu12/17/23 at 1103, Pain Moderate (4-6), Pain Severe (7-10), PHASE II, PACU only prochlorperazine 5 mg/ml injectable solution (1 source) Phenothiazine Start: 12-17-2023 End: 12-18-2023 5 mg, IntraVENous, ONCE PRN, 1 dose, Starting on Thu12/17/23 at 0944, Until Thu12/18/23 at 0944, Nausea, Initial antiemetic therapy., PACU only 1000 ml sodium chloride 9 mg/ml injection (3 sources) Start: 12-17-2023 take 20 mL intravenously every hour IntraVENous, at 5-250 mL/hr, PRN, if patient receiving piggyback infusions and maintenance fluids are not ordered OR KVO fluids to protect IV site / prevent frequent line interruptions/ long duration, Starting on Thu12/17/23 at 0944, For piggyback infusion, administer at same rate as piggyback for a total of 25 mL. Enter 25 mL into dose field and piggyback rate into rate field of order. If piggyback is infusing at a rate less than 100 mL/hr, enter 25 mL into dose field and 100 mL/hr into rate field of order. For KVO fluids, enter rate of 20 mL/hr or less into rate field of order., PACU only Start: 12-17-2023 5-40 mL, Intra VENous, EVERY 12 HOURS SCHEDULED (2 times per day), First dose on Thu12/17/23 at 1000, Until Discontinued, For Line Patency: Peripheral IV = 5 mL; Midline or Central Line = 10 mL/lumen. If following IV push medication, administer flush at same rate as the IV push. Flush volume is determined by type of infusion therapy being given. For non-viscous solutions use: Peripheral IV = 5 mL Midline or Central Line = 10 mL/lumen For viscous solutions (i.e. blood components, parenteral nutrition, contrast media, or after obtaining blood sample) use: Peripheral IV = 10 mL Midline or Central Line = 20 mL/lumen, PACU only Start: 12-17-2023 5-40 mL, Intra VENous, PRN, Starting on Amara 12/17/23 at 0944, Until Discontinued, Line Care, After every IV line use, For Line Patency: Peripheral IV = 5 mL; Midline or Central Line = 10 mL/lumen. If following IV push medication, administer flush at same rate as the IV push. Flush volume is determined by type of infusion therapy being given. For non-viscous solutions use: Peripheral IV = 5 mL Midline or Central Line = 10 mL/lumen For viscous solutions (i.e. blood components, parenteral nutrition, contrast media, or after obtaining blood sample) use: Peripheral IV = 10 mL Midline or Central Line = 20 mL/lumen, PACU only sofosbuvir 400 mg / velpatasvir 100 mg oral tablet (1 source) Hepatitis C Virus NS5A Inhibitor, Hepatitis C Virus Nucleotide Analog NS5B Polymerase Inhibitor Start: 03-29-2021 take 1 tablet by mouth every twenty-four hours Sofosbuvir-Velpatasvir 400-100 MG 1 tablet Orally Once a day for 28 day(s) PATIENT PRIOR AUTH IS GOOD FROM 02/21/2021- 06-20-2021 Mar, Active valACYclovir 1000 mg oral tablet (9 sources) Herpesvirus Nucleoside Analog DNA Polymerase Inhibitor, Herpes Simplex Virus Nucleoside Analog DNA Polymerase Inhibitor, Herpes Zoster Virus Nucleoside Analog DNA Polymerase Inhibitor Start: 07-28-2022 take 1 tablet by mouth once daily Valtrex 1 g Tab 1 gm = 1 tab(s), Oral, Daily, Refills(s) 0 Start Date: 07/28/22 Status: Ordered Start: 06-03-2020 End: 03-06-2021 take 500 mg by mouth once daily Valacyclovir Discontinued 500 MG PO Daily June 03, 2020 1:00am March 06, 2021 9:35am Zofran ODT 4 mg Tab-Dis (6 sources) Start: 11-12-2016 take 1 tablet by mouth every eight hours Zofran ODT 4 mg Tab-Dis 4 mg = 1 tab(s), Oral, q8hr, # 6 tab(s), Refills(s) 0, Pharmacy: [facility]/pharmacy #[id number] Start Date: 11/12/16 Status: Ordered Completed/Discontinued Medications Medication Drug Class(es) Dates Sig (Normalized) Sig (Original) acetaminophen 500 mg oral tablet (1 source) Start: 11-21-2023 End: 11-21-2023 acetaminophen (TYLENOL) tablet 1,000 mg acetaminophen 325 mg / oxyCODONE hydrochloride 5 mg oral tablet (3 sources) Opioid Agonist Start: 11-21-2023 End: 11-21-2023 oxyCODONE-acetaminop hen (PERCOCET) 5-325 MG per tablet 1 tablet Start: 11-21-2023 End: 11-24-2023 oxyCODONE-acetaminophen (PER COCET) 5-325 MG per tablet Indications: Umbilical hernia without obstruction and without gangrene Take 1 tablet by mouth every 8 hours as needed for Pain for up to 3 days. Intended supply: 3 days. Take lowest dose possible to manage pain Max Daily Amount: 3 tablets 5 tablet 0 11/21/2023 11/24/2023 Active Start: 12-28-2014 End: 11-21-2023 take 1 tablet by mouth every six hours as needed oxyCODONE-acetaminophen (PERCOCET) 10-32 5 MG per tablet Indications: Pelvic pain in female , Intramural leiomyoma of uterus Take 1 tablet by mouth every 6 hours as needed 120 tablet 0 12/28/2014 11/21/2023 Discontinued (LIST CLEANUP) cetirizine hydrochloride 10 mg oral tablet (1 source) Histamine-1 Receptor Antagonist Start: 06-03-2020 End: 03-06-2021 take 10 mg by mouth once daily Cetirizine Discontinued 10 MG PO Daily June 03, 2020 1:00am March 06, 2021 9:35am ciprofloxacin 500 mg oral tablet (2 sources) Quinolone Antimicrobial End: 11-30-2023 take 1 tablet by mouth twice daily ciprofloxacin (CIPRO) 500 MG tablet Take 500 mg by mouth 2 times daily 11/30/2023 Discontinued (Therapy completed) iopamidol (ISOVUE-370) 76 % injection 75 mL (1 source) Start: 11-21-2023 End: 11-21-2023 iopamidol (ISOVUE-370) 76 % injection 75 mL loratadine 10 mg oral tablet (2 sources) Start: 10-03-2014 End: 11-30-2023 loratadine (CLARITIN) 10 MG tablet 11 10/03/2014 11/30/2023 Discontinued (Therapy completed) mesalamine 500 mg extended release oral capsule (2 sources) Aminosalicylate Start: 07-27-2014 End: 11-30-2023 take 1 capsule by mouth four times daily PENTASA 500 MG CR capsule Take 500 mg by mouth 4 times daily 07/27/2014 11/30/2023 Discontinued (Therapy completed) pantoprazole 40 mg delayed release oral tablet (2 sources) Proton Pump Inhibitor Start: 08-05-2014 End: 11-30-2023 take 1 tablet by mouth once daily pantoprazole (PROTONIX) 40 MG tablet Take 40 mg by mouth daily 08/05/2014 11/30/2023 Discontinued (Therapy completed) ziprasidone 20 mg oral capsule (3 sources) Atypical Antipsychotic Start: 03-06-2021 End: 03-08-2021 take 20 mg by mouth twice daily at mealtime Ziprasidone Hcl Discontinued 20 MG PO TWICE DAILY WITH MEALS March 06, 2021 1:00am March 08, 2021 10:44am Problems Active Problems Problem Classification Problem Date Documented Da te Episodic/Chronic Abdominal hernia (17 sources) Inguinal hernia; Translations: [Unilateral inguinal hernia, without obstruction or gangrene, not specified as recurrent] Onset: 07-12-2022 Episodic Abdominal pain (18 sources) Flank pain; Translations: [Left lower quadrant pain] Onset: 03-29-2022 07-28-2022 Episodic Allergic reactions (6 sources) Eczema 07-28-2022 Episodic Deficiency and other anemia (6 sources) Anemia 07-28-2022 Episodic Disorders of lipid metabolism (1 source) Hyperlipidemia, unspecified; Translations: [HYPERLIPIDEMIA UNSPECIFIED] Onset: 02-01-2022 Chronic Genitourinary symptoms and ill-defined conditions (6 sources) Incontinence 05-27-2021 Chronic Genitourinary symptoms and ill-defined conditions (12 sources) Increased frequency of urination 07-28-2022 Episodic Hepatitis (8 sources) Chronic hepatitis C; Translations: [Chronic viral hepatitis C] 07-28-2022 Chronic Miscellaneous mental health disorders (8 sources) Sleep walking disorder; Translations: [Sleepwalking [somnambulism]] 07-28-2022 Chronic Mood disorders (20 sources) Bipolar disorder, most recent episode depression; Translations: [Bipolar disorder, in partial remission, most recent episode depressed] Onset: 08-17-2014 07-28-2022 Chronic Nonmalignant breast conditions (13 sources) Mastitis without abscess; Translations: [Abscess of breast] Onset: 02-05-2022 Episodic Nutritional deficiencies (1 source) Vitamin D deficiency, unspecified; Translations: [VITAMIN D DEFICIENCY UNSPECIFIED] Onset: 02-01-2022 Chronic Other acquired deformities (6 sources) Contracture of joint of right ankle; Translations: [Contracture, right ankle] 08-08-2024 Chronic Other bone disease and musculoskeletal deformities (4 sources) Osteochondritis dissecans of right ankle; Translations: [Osteochondritis dissecans, right ankle and joints of right foot] 09-06-2024 Chronic Other bone disease and musculoskeletal deformities (10 sources) Solitary bone cyst of right foot; Translations: [Solitary bone cyst, right ankle and foot] 08-08-2024 Episodic Other connective tissue disease (4 sources) Pain in left foot; Translations: [PAIN IN LEFT FOOT] Onset: 09-02-2022 Episodic Other connective tissue disease (2 sources) Synovitis and tenosynovitis; Translations: [Other synovitis and tenosynovitis, right ankle and foot] 09-14-2024 Episodic Other diseases of bladder and urethra (6 sources) Overactive bladder 05-27-2021 Chronic Other female genital disorders (1 source) Unspecified dyspareunia; Translations: [UNSPECIFIED DYSPAREUNIA] Onset: 03-29-2022 Chronic Other gastrointestinal disorders (1 source) Personal history of other diseases of the digestive system; Translations: [Personal history of other diseases of the digestive system] Onset: 12-17-2023 Episodic Other liver diseases (1 source) Hepatomegaly with splenomegaly, not elsewhere classified; Translations: [HEPATOMEGALY WITH SPLENOMEGALY NEC] Onset: 07-12-2022 Episodic Other nutritional; endocrine; and metabolic disorders (4 sources) Body mass index 40+ - severely obese; Translations: [Body mass index (BMI) 40.0-44.9, adult] Onset: 08-06-2022 Chronic Other nutritional; endocrine; and metabolic disorders (1 source) Morbid (severe) obesity due to excess calories; Translations: [MORBID SEVERE OBES D/T EXCESS TAHMINA] Onset: 04-07-2022 Chronic Other nutritional; endocrine; and metabolic disorders (1 source) Body mass index (BMI) 39.0-39.9, adult; Translations: [BODY MASS INDEX BMI 39.0-39.9 ADULT] Onset: 04-07-2022 Chronic Other nutritional; endocrine; and metabolic disorders (5 sources) Body mass index 30+ - obesity 11-11-2022 Chronic Other nutritional; endocrine; and metabolic disorders (5 sources) Morbid obesity 11-11-2022 Chronic Regional enteritis and ulcerative colitis (18 sources) Crohn's disease 11-06-2016 Chronic Residual codes; unclassified (2 sources) Daytime somnolence; Translations: [Other hypersomnia] Chronic Residual codes; unclassified (1 source) Tobacco user; Translations: [Tobacco use] Onset: 08-06-2022 Episodic Residual codes; unclassified (6 sources) Insomnia 07-28-2022 Episodic Residual codes; unclassified (6 sources) Nicotine-filled electronic cigarette user 08-06-2022 Episodic Residual codes; unclassified (1 source) Other specified postprocedural states; Translations: [Other specified postprocedural states] Onset: 12-17-2023 Episodic Schizophrenia and other psychotic disorders (6 sources) Schizoaffective schizophrenia Onset: 10-06-2017 07-28-2022 Chronic Spondylosis; intervertebral disc disorders; other back problems (10 sources) Lumbar radiculopathy; Translations: [Radiculopathy, lumbar region] Onset: 01-30-2022 07-28-2022 Episodic Sprains and strains (6 sources) Sprain of talofibular ligament of right ankle; Translations: [Sprain of other ligament of right ankle, initial encounter] 08-08-2024 Episodic Substance-related disorders (20 sources) Opioid dependence; Translations: [Opioid dependence, uncomplicated] Onset: 04-07-2022 07-28-2022 Chronic Comment on above: Added secondary to d ocumentation in Social History. Suicide and intentional self-inflicted injury (1 source) Suicidal thoughts; Translations: [Suicidal ideations] 03-06-2021 Episodic Unclassified (1 source) CONTACT W/AND (SUSP) EXPOS COVID-19; Translations: [CONTACT W/AND (SUSP) EXPOS COVID-19] Onset: 04-05-2022 Viral infection (6 sources) Herpes simplex 05-27-2021 Episodic Past or Other Problems Problem Classification Problem Date Documented Date Episodic/Chronic Deficiency and other anemia (1 source) Anemia, unspecified; Translations: [ANEMIA UNSPECIFIED] Onset: 02-01-2022 Episodic Diabetes mellitus without complication (1 source) Other abnormal glucose; Translations: [OTHER ABNORMAL GLUCOSE] Onset: 02-01-2022 Episodic Hepatitis (6 sources) Viral hepatitis C; Translations: [Acute hepatitis C without hepatic coma] Onset: 02-19-2021 Resolved: 02-19-2021 Episodic Immunizations and screening for infectious disease (1 source) Contact with and (suspected) exposure to infections with a predominantly sexual mode of transmission; Translations: [CONTCT W EXPOS INFECT SEXUAL TRNSMS] Onset: 05-16-2022 Episodic Other aftercare (1 source) Other custodial (current) drug therapy; Translations: [OTH HOG GRADER CURRENT DRUG THERAPY] Onset: 04-07-2022 Episodic Other endocrine disorders (4 sources) Endocrine disorder, unspecified; Translations: [ENDOCRINE DISORDER UNSPECIFIED] Onset: 02-25-2022 Episodic Other female genital disorders (4 sources) Other specified noninflammatory disorders of vagina; Translations: [OTH SPEC NONINFLAMMATORY D/O VAGINA] Onset: 05-15-2022 Episodic Other screening for suspected conditions (not mental disorders or infectious disease) (1 source) Encounter for screening for malignant neoplasm of rectum; Translations: [ENC SCREEN MALIG NEOPLASM RECTUM] Onset: 02-01-2022 Episodic Ovarian cyst (1 source) Unspecified ovarian cyst, left side; Translations: [UNSPECIFIED OVARIAN CYST LEFT SIDE] Onset: 04-07-2022 Episodic Residual codes; unclassified (1 source) Acquired absence of other specified parts of digestive tract; Translations: [ACQ ABSENCE OTH PART DIGESTV TRACT] Onset: 04-07-2022 Episodic Residual codes; unclassified (1 source) Acquired absence of both cervix and uterus; Translations: [ACQUIRED ABSENCE BOTH CERVIX AND UTERUS] Onset: 04-07-2022 Episodic Residual codes; unclassified (1 source) Insomnia, unspecified; Translations: [INSOMNIA UNSPECIFIED] Onset: 02-01-2022 Episodic Residual codes; unclassified (2 sources) History of endometrial ablation; Translations: [Other specified postprocedural states] Onset: 08-17-2014 08-17-2014 Episodic Residual codes; unclassified (3 sources) History of repair of umbilical hernia; Translations: [Other specified postprocedural states] Onset: 08-17-2014 12-17-2023 Episodic Results Test Name Value Interpretation Reference Range Facility ALL CBC WITH AUTO DIFFon BASOPHILS ABSOLUTE AUTO 0 [facility] Basophils/100 WBC (Bld) 0.3 % 0.2 - 2.0 % [facility] Eosinophils/100 WBC (Bld) 2.1 % 0.9 - 7.0 % [facility] Erythrocyte distribution width (RBC) [Ratio] 11.9 % 11.0 - 15.0 % [facility] Hematocrit (Bld) [Volume fraction] 40 % 36.0 - 48.0 % [facility] Hemoglobin (Bld) [Mass/Vol] 13.5 g/dL 12.0 - 16.0 g/dL [facility] IMMATURE GRANULOCYTES ABS AUTO 0 [facility] Immature granulocytes/100 WBC (Bld) 0 % 0.0 - 0.5 % [facility] LYMPHOCYTES ABSOLUTE AUTO 1.5 [facility] Lymphocytes/100 WBC (Bld) 25 % 20.5 - 60.0 % [facility] MCH (RBC) [Entitic mass] 30.5 pg 26.7 - 34.0 pg [facility] MCHC (RBC) [Mass/Vol] 33.8 g/dL 29.9 - 35.2 g/dL [facility] MCV (RBC) [Entitic vol] 90.5 fL 81.0 - 99.0 fL [facility] MONOCYTES ABSOLUTE AUTO 0.3 [facility] Monocytes/100 WBC (Bld) 4.8 % 1.7 - 12.0 % [facility] NEUTROPHILS ABSOLUTE AUTO 4 [facility] Neutrophils/100 WBC (Bld) 67.8 % 43.0 - 75.0 % [facility] Platelet mean volume (Bld) [Entitic vol] 10.6 fL 9.5 - 13.5 fL [facility] EO # 0.1 [facility] PLT 199 [facility] RBC 4.42 [facility] WBC 5.8 [facility] ECG 12-LEADon 10-03-[address] [address] Electrocardiograph Report Signed Patient: TIARA PARIKH MR#: [id number] : 1985 Acct:[id number] Age/Sex: 38 / F ADM Date: 10/03/24 Loc: CARD Attending Dr: SERG MATA M.D. Ordering Physician: SERG MATA M.D. 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 Measurements Intervals [place] Rate: 77 P: 59 MI: 144 QRS: 72 QRSD: 102 T: 56 QT: 381 QTc: 431 Interpretive Statements SINUS RHYTHM Normal ECG Compared to ECG 10/14/2020 21:25:35 No significant changes Electronically Signed On 10-03-2024 13:22:02 EDT by ANJEL GIBLERT M.D. Dictated By: ANJEL GILBERT Signed By: 10/03/24 1322 DD/ 1153 TD/TT: Nut [employer]acker: [facility] Radiology, Radiologist, MD - 10/03/2024 [place] [address] Electrocardiograph Report Signed Patient: TIARA PARIKH MR#: [id number] : 1985 Acct:[id number] Age/Sex: 38 / F ADM Date: 10/03/24 Loc: CARD Attending Dr: SERG MATA M.D. Ordering Physician: SERG MATA M.D. 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 Measurements Intervals [place] Rate: 77 P: 59 MI: 144 QRS: 72 QRSD: 102 T: 56 QT: 381 QTc: 431 Interpretive Statements SINUS RHYTHM Normal ECG Compared to ECG 10/14/2020 21:25:35 No significant changes Electronically Signed On 10-03-2024 13:22:02 EDT by ANJEL GILBERT M.D. Dictated By: ANJEL GILBERT Signed By: 10/03/24 1322 DD/ 1153 TD/TT: Nut Cracker: [facility] Radiology Study observation (narrative) [facility] ECG 12-LEADOrdered By: Radio logist Radiology on 10-03-2024 [facility] [employer] Work Phone: Coding Summaryon 09-23-2024 Coding Summary HTMLBase 64 DefikvqiVFc5xYu+PGhlYW Q+RU8DLJRtT17ldLFonN7w R2TBBMbRQygsAMUBLUqMIo UdzbIzBQ1cmBBwRQSs IC8+BV5rWBJtBgfprKEou2 V3lWF2W95ena1wWTjlsGH9 AMWyCuKdwirir4hqpRd3UF cuNmluOyBt HBSogZ16STK6dW63Pj96nS TfsJFje6fkbAt3EbMiSWWs ZEI8uKugSYaox7PzUOGzZ4 9ivLYdz4D0 JPAsfYccuLJuWuZfiWH5pQ 3oNQscvwqin5vrxlocKjx2 gz08rHRvh9S0sPR8O7Uapn W7BWFqsGQe SrnpfMRPcR1sndotq1rdko uwLwGvNXTzFPp1DZt5GNZo eRbwEhXgPT55ZSZ0MLDzdn MfE2LjFBCj mGrfZtB6o5Y3Pg6FY4IMLd efS5PAUVQLMCjrnTT+PC90 ec18U7XvRvqoRig0EAToGH I7yTM3wS9e YRJfZLrmu0C3aDY7E0Wyiv Zizf2yr0snGYCjJBjpW08z oFAjw0T2PQFhcUI0MCNewH mwVaPfqH57 Oyc+PVKpoPnoj0AfWvacu6 fyj8tldQb4GgxcGFSwxrTg iTzyVUY4c6DfNd2zCVPskV N5xSM1rP7o UlWiJdC9QYvoF535JdQcbR WjGwbiX47xC3KmfMF+PHRy Myv4QLBpfJtjLY4wT2ElHV RpbmctbGVm hJtnXH9iCKDzqyruDGGkgM 1lKKXaN1c0EfUuPzN6LWpz N9KpFUTcjbesUl32xS4aKl WtUrE3RMkr E5DhraF0WZDteMZzPKwhIE R7O43vb4K0YOKuLQTsKSK1 gQA2kX8mmDdgjmdixTQwnW sgdmVydGlj XCwmMEhpK115FYMjfIcoOb NvZGluZyBEYXRlOiAgMDYv MDYvMjAyNTwvdGQ+PHRkIH W9tTmiEUVy lVRzZWvfIs2qyVlccWxsRO 3oGHXyiahmFAOxcI7jDHCq xROtjPahLT0tMPFgerqra6 90NoXqZBV4 HYYtkQWrM1FxuV0cQvKxLP AdBAYgF9GjyQKcOHbsU087 MKthOlX5IXLktmElO2IuAJ FsaWduOiB0 z6Q0Eu8Bl8HxgjxnX5ImyF EkOuUzOrmpOIf1C0SnXrqk dHI+CW71DSXiJL74QFv6SR G6gNnaGQke JXUyP9UxsY3aKtHhOZHmQE RkOyc+PHRhYmxlIHdpZHRo XZtbAFMlIuNvsDtdBF1xUh 9yZGVyLWNv eUkmkAZdPsWkq9uaOZNhVS mqUN7tcZggD3PbaCU8VTYk k4w1Wm36I97aU1VklPF+PG DmqXP1tOD9 xN0dXiDiErX0AGnfE371Xz MfwKOaAqfvy0pyl0uuyFx6 OxD7CTTcsyQehSpmZVC3u1 AkXi52V28s IHdpZHRoPSIxNSUiIHZhbG edqi7vnT0vSn3+PGNvbCB3 rBC4fP1tHeWnUxG3JGhpY2 49InRvcCIv Srwcj7pzi0rwmSo3GaBkSP FrksJhhHmcYAD6e7SdKk73 R9UdgCrta4UeNsl2pj24yH Ogl0S7lHT6 W5LlGSPxwqbosYVtjOleFY 8qCRTbmvvrUWIthH6fVFSu Y3p3XyJePhG5MYvlY9Fqny L2IMJstQGl FQWwzHUAyQ6nlfapq2nawc mjQgIcDRDmCIm4PBx0QLIp gEqpZxDrCKM7YcA1QNE2uM GtdM4laLrd mwofnF3dBlp+YSI7uFVqfS FBCK5vSxnhgRL+PHRkIHN0 uUhrMOtuOKJlwY3gFAMdU2 y5UxKbLrQ5 FOmqJ3DmbcB0SWAapUXcYU YvyHAYcW8yzsnmn6xvasnu MnRfGBXmXXh1ZKf0CUHeqY duOiBsZWZ0 UrQ4HSQ6kCSgjU0piBukts zvrS2aYfr+QmlydGggRGF0 DCe7U5RcMfv5QNZcqIqfUU 0ncGFkZGlu Bs0kwPxykUpbLO8iEQVvre ady263IfNzb2dmIXUsvBCf DMjaFND4P56lz8D1QZXzDA NhZFU0eDR7 aY6pbDrjqjtfhTCohUfsgw PqbQioCGsjZGscD674LCQq cCegZjGjEGg6D2UyIgk1FJ YxrJdjVI2e eNSxBEwnJt8xiVzfxIunKL 9uEGXnxumfo842RiVir5sn KDWgePMeWJmxRQS2W22sw8 H5NWDhAGGh IKW5pNU4bK7hePtqpfotzZ VmdDsgdmVydGljYWwtYWxp G773OHJojSdnXtSnoNk8P2 AvJig2APGb rQezII2aoAZtDKuuWz9poV ludAbqGO7lQXFybbxlz421 ThHrv6hcGABckMRpOJfbLB L5R69tt6W1 OPOyEVRrVEW5sOE8tK2hmL lnbjogbGVmdDsgdmVydGlj LRsqCDdlV728YUHvjEizAm BhdGllbnQg NYzaXWt2P3BaEzcicKQ+PC 05ZDYcEZ45wZXraCAzn8xz sKx6ZjAfXHKgUSE5wOtkNI lpz1GlBXTz L48qoMGmf6X1RDKkgBpllQ EeLnFvfUD9aC3vLFbfbjiv l5gzzdfdPbvye1idsk54oR 44V57tPXhw ZHRoPSIzMCUiIHZhbGlnbj 0jwE8kSr2+NUNfjIT8vBN7 mU2qHBGvNrQ7UWlvO450Qi RvcCIvPjxj d5fim4ltvEu0CdR3NMPcgc PieJnvKLA9q8FaTs01I98s IHdpZHRoPSIyMCUiIHZhbG ctwd9zfR9n Ii8+HGVrbUI4pCO3cA5jCw FvXvV9EMvqY178StJmdBWw PyndT65qW9PzaFW+PHRyPj e8UFEfnVhl HM1bgSHrVUktUs6bRAW2Ji CcDoExUNcsD8HkEBWxuwse dymwzOJ0IHYlBWQqsG55Lq 9udDogMTBw iOSTcM7ixenuh8fqnlpxHl FmKQPhAZq1ANq8RVZqpVod RtBqPRS2QvZ1IUS2iBAdtA 1hbGlnbjog kC4tA4TaNCTazjlaRz56lD 0iTgHbAjP1EKnbVud+Q09M QWgQPahlSF2EWlAYRPWXDV wvdGQ+PHRk WRT5uFkuNUmcJJTkdG7kMJ HxB2d9UxUpMcJ7YMkgL4Ky SGBaluybPm80zF1pElAsWa B8UJgsZ8Lp ktV6QZZuiVIwYSvnLNW7X2 7bp2R4KNGaKXPjAJE5tQG3 sT4gkVqdzhbnmEXlhQzoos VydGljYWwt GVwdN627CWTfwLopNxC4Rr A8RtH9KTD5Y8DwVhk0MFAi bOqbKB5ouSYmEPueCs7yeE xrpDyoDQ3s BTLyunpwPJUumC9pNFIcdD FqnSajOM4cRDWmfsszk731 MuVlDXK0DFXkyRHvU1CrjC 9yOiAjMDAw TUHkQ5IzmGNqZQgqW759SO ftEhF5LPPcciGjI3MwXKNt qYsdDkT5n9K7Ye7kRAGTDQ FyczwvdGQ+ JGFsCRJ5dKljGQmlDCRdhO 2lNWMvW8b0AgOyIvY5EQio D1SdNQMlzpmgCm51eS5oUz DaCcU8XIuf V5FqlnB8JSPatYGaORiaXE L2J64tf4U7WXPlULQwMON4 gOL2sM0kwKexjtmdmXKhaN sgdmVydGlj MIvpMQepT076YBYsuZekZz ZFTUFMRTwvdGQ+PHRkIHN0 oNozGHvpDRIixC3pNIEkS5 u7EjAkKzO9 LAghQ1BjWBNuznoaAt66xE 7sAnXvIuB1TKraD6XrvhC9 EUGndBYuHYxqPSU6Q31on5 H0YPJtQUCe RFU4zUZ5aC3iwOiogcddcQ VmdDsgdmVydGljYWwtYWxp V368CDWkaDnrXlQfJDSfEZ 5jeTwvdGQ+ OS91ij13J6YwOgwfAqk0VJ IhOND9bME0nA3wIRNcRCwr t4P0pFG2V9IjrwAwhu5mi3 xsYXBzZTog T74fvLPif4O9UTGwaWL9NG YbdLvyLkQciY24Rpp+PGNv cCcko9YrNnbsz0igs0euuI g1SyTbRFTa dqLeeDkqCHE2e6IhJv07T7 9sIHdpZHRoPSIzMCUiIHZh fAutfy5sdG7hQz6+PGNvbC C9hDP4yH3k PwEaOfC8UZxbZ523MqSbxJ SkYthfg5otj0genMh2LlMr JIXrjyIiwWcvZLR2l3DxMb 44I0QjlLpm d1VsLkg4gi15rGXsl5U4vG Q0S1GkGXWmdppbxTQdzUdc CU3yXEQhbejdSAFzoB8dGU MlE4l9DcQb TuK5NClnH0JyvjM1NBVsaW KyXKZlaIGKdR0rbolpx9qp nowfCaBhEYSdVYv7EQy1WH FsaWduOiBs UHQ1RjT8POR7qQQweA9fyW thdlpilY0fCcp+GDq4c5gr xDJdKK2eaRK4MD04XC58xE Gfn3O8kCT6 J2NdUQMzaidjvhlzyDB9BY UiFTOsbH56Qb5vuTteTt9x SRSzKSS4ODJlmANwG2XqtJ 9yOiAjMDAw EAVxL0ZdpXDoHBrpY788TG yeEvB1MABpauWlP7RtSPWy rIflUpQ2h7Y2Rb9EIH77UR 06WF20sAYz y3R0sUU2X1WuRPIcsjentf krrOP0HXMuSYDlcJ84Sm6t sIelBq7gGBHcEMM4YYUeiW WrU7VpnU3q WlFfOKBrLJCcM0WztZUmFT jhA556CFgdJgQ6XMXhufWo J3VnJBAruWnkMaS4u5W1Lt 7QKf47OR47 MC42lMAea5X6oVV5X3BeKP KtykvbbfouhFH5PUQiDEFl uJ39Mn1tsUbkRj0sBYNwMW Y4TZXhxLSx P9KqoB7eMhWaKUBfATBxV2 QqvUJhJXhfD496DJfcAqD1 BBVgrpFuC9KoXMMtqWuiCb V0n4G0Sd4X SVdwarv3S6JeXrnpfNQ+PC 70WRKpWA33bXGonSPtr9zv cDk1WeIdGABbZXC4aZqqDA fku1MoKOLb Y29 (more content not included)... Normal [facility] Wound Cultureon 09-17-2024 Wound Culture Light growth of Methicillin-Resistant Staphylococcus aureus Few White Blood Cells Few Gram Positive Cocci ORGANISM MRSA --- SUSCEPTIBILITY -- ORGANISM ID: 1 ANTIBIOTIC INTERPRETATION CHARANJIT STATUS ORGANISM MRSAMRSA Amox/Cla R >4/2 Verified Amp R >8 Verified Amp/Sul R >16/8 Verified Azith S <=2 Verified Cefaz R 16 Verified Cipro R >2 Verified Clinda S 0.5 Verified Eryth S <=0.5 Verified Gent S <=4 Verified Levo R >4 Verified Linez S <=2 Verified Nitro <=32 Verified Ox R >2 Verified Pen R >8 Verified Rif S <=1 Verified Tetra S <=4 Verified Tri/Sulf S <=0.5/9.5 Verified Vanc S 1 Verified Normal [facility] Comment on above: Performed By: #### [id number] #### [facility] (DEFAULT) [address] [place] [address] MR FOOT RIGHT WO IV CONTRAST on 09-05-2024 MR FOOT RIGHT WO IV CONTRAST EXAM: MR FOOT RIGHT WO IV CONTRAST [...] displaced osteochondral lesion. ELECTRONICALLY SIGNED BY: Zia Alexander, DO Normal Not Available XR Ankle - right 3 [facility] 0 08-08-2024 Imaging Result: Negative fractures identified with negative osteochondral defects with notable small navicular dorsal chip fracture which may be old in nature [facility] Study observation (narrative) emids XR Foot - right 3 [facility] Imaging Result: Notable large cyst-like region to navicular tuberosity with negative fracture identified [facility] Study observation (narrative) [facility] Coding Summaryon 07-25-2024 Coding Summary HTMLBase 64 HbgxfbayCYo0yFc+PGhlYW Q+QH6IAGUdF79rbFRzrE1s Y0NIXQhLCdtlZGPBBHtTXr MhuaReVH8uhLHeCVZq IC8+ZG0vMODoIscxsQBkx1 M2aAT9Q62xxz4rBBjhyRP0 HBMuCaFsjntpo1agrPo8BA cuNmluOyBt FYMgbS46SNJ1gJ11Nm14mR ElgREwv1odwEf6VfDiEBOw BCQ0wVyqYXqbh2NpKBRlS8 6iaMJbn3R6 JZGruEbagAFvLwOtoNJ7pA 7dEHccgkblx3uccfyeGge5 on76jWKub9G9qEO9V5Zbsm K5OHForHEv YpbejGHGsQ9elzefu2xjoi daUnJiOGXtXBe9IGx8GDYr eHyuXbNxBN08EFL0SYPacq GnY9DcYMBa dPryIqO2l4H5Fo4EF4VBTn pjI5BYISREVNgdoHD+PC90 pm87M8QrUlyrMbr3FRDmYM V0nRC9lI0m VWDtGNbbh4E4aKS3X9Zitz Ghzw6ry8ipYZAlQFhlW84v gNIsi4G3WEFreBA5DSUmaN hwBxFokH77 Oyc+WFYclVrjz8LhUqvcq0 hxh3fiwTb2VaazBPWokyAv nUpcQNR1i5LyLo4iDGYvlH C3jNL1lA5g WdDuIxG1MBqfM291XvMrgZ TaRedjG72oC2YxiXF+PHRy Ylo3AANhtBpgDX6rF1TiWQ RpbmctbGVm cHrlMS6uIKXpjrfnEPGqiU 8tGDJnY0a6BzHuRxS5CJii V8CeQBSkfwbxRu50aH5yDm FjOcX6SZvj Q9TnlcS6UOTafTUtXLfkTG I2A61te9P0BTNrNVWoMDI8 xRC0eJ2iaKlzjkbihMPytF sgdmVydGlj ISbvYOszF898DDVcuNkeZh NvZGluZyBEYXRlOiAgMDQv MDcvMjAyNTwvdGQ+PHRkIH Z0eZwaIDNw kZAyRRqeZl3pqFpmwSjeOL 4qIKDmcqunJAMfmU5oHIEy sZEhvZkdQS0pTQJrdaewi8 79IyQmWCB8 KAKksXVfE2QucK7kWxBjHP FlRFWoF2IstGSeIHdoI569 WSznXbN9ZQAfptLkD2BzYJ FsaWduOiB0 r3X0Kz2Gh7EyewspS3AewA HhGwXmGkfoOUe5X1CdDkbi dHI+QL47NDLrAV78KVf4DG B6sCwfEPsb MRCbX6WowQ0cCfDuVAHbWY RkOyc+PHRhYmxlIHdpZHRo YVfoEVPdCmTijAunHN9vSj 9yZGVyLWNv qZvssAAsSwGma0hjGFDxIF mpPE0caPmfI0TdoXH9YVWt k7n4Ai01U49mN1JcvVV+PG NtnHQ1kOW7 oI0vMiOlIcF7MHcgT879Oz TnwDExSlxxw9ojq0kmpWm9 BpT7VIJsbaBscXepOXP6v1 JmCv95T24w IHdpZHRoPSIxNSUiIHZhbG wpfv2mzG1lBg4+PGNvbCB3 cCD4fR9jSuElEqO0KTssN7 49InRvcCIv Epccb3yzk5jgmTv0WyCxCF TlerYziOlfMBF1c0VkFk07 Z4RpdLpvy3NeFix9gc01pE Ciz4N9kRC5 Y7WbVGCyckcktDEpiYotUU 4rLMQciajfAOKxoH7dXXWj A3k8HcDcEcD9GMlsY0Lchs I2SKRqbUJx GCSqgFUMfN7wqgubg4dhrv rrDoVtYIJfADc1JPa7WDZm aKupWpGeEFL0SjY3MBZ6zT ItgB3hmIjw vrmzdG5iSac+JAZ3yGKsoQ TCTW6iBvuuvQS+PHRkIHN0 vXbhRUtnGUDfuM8mRYXkO8 y0IbSwGnN0 VAdgH6HkebA5ATFdvPFlZL WlxEBAyC4gyjhii1jmmsfg KjMsDWMkHOo4FEi4DHOwjI duOiBsZWZ0 DzX0CVU1qKAnlR4iqStbzs exeG6dRuq+QmlydGggRGF0 KUq4U8SdRkf6JIKboTkeFT 0ncGFkZGlu Yl1fmHkrsRnfAE2vZEDxup dez918EgQuo3jmSWNdjRQp KRznYCB7Q16jn0L7MYJhZW XfMIB9tZS4 jT2yjZzytwqxfYKfbHjxtz QgvNfoTFkhOFxwF402SVYn nRwiFvBoITf1O6BiNgw2TV ThsIjrQW5u rMOdISzfFl7wrIggrTdnDH 8tXLSndtwxj879RtNvi1yk HCJiuXNdWYrbXZM8R33js4 W6AMHtGBHc GOG7qTH4zC6lmDmafpimoA VmdDsgdmVydGljYWwtYWxp R649KYSqeRdzAlCrcLw9I7 JvUil5ZMCa iHmcUZ2uhFJlWEziJi5exB kgpVhaFT7nSZPifdpnx636 XbUwn2loZJMmmMXoCYzjIX E0I64fc8Q5 BPYzXBVxHCI7bVA5fL6okT lnbjogbGVmdDsgdmVydGlj HFtfBVflV669KIOrbPzoPc BhdGllbnQg AKryCJx7L1RhAomooUI+PC 47BASpUW64tLZonBLyh6dc kBe4WnRjJXGcLPI3qLokJU auh1HzCSPx R44ooBSxl7S7MJQfjBopoX WhWsFrsXA5wM3xVGdqookz r6xdcddcWretw4hmka16vI 59S61vHHgd ZHRoPSIzMCUiIHZhbGlnbj 1twG4cJl0+RGVmcZF9dQD0 qT1uYWSxXgT0CRdkZ293Jc RvcCIvPjxj u0gvs7fruFo5OfI7BKXeib VzmYxuJCN5q7IjMf46S69q IHdpZHRoPSIyMCUiIHZhbG fssq9njS2l Ii8+SQFzrQM0kMN1cC7vHy NkVjV2RDqwS532AtLuwKVp VjkjQ72tW6DnwOF+PHRyPj k6OAIjoQkh WO2zkZQlAUvaIj4rVNN2Rf YqHqOjLCmiN0YtEIOyugkd gdwlxIC5ESKwLAPljW31Oc 9udDogMTBw bJZWgB3aduujp0wiofbjXt UwKAHqAKq2NJw7DCZunTuy BtZjBKU8YyR9KYM7aPUapO 1hbGlnbjog hL4tQ4KdZVOcoohoHn26hH 0aGlFzAzV8DTejJfm+Q09M LKjVNsklCY2NKfJDBWHXDX wvdGQ+PHRk XRM9dCalWMsiTHNymO6sQJ LtK8h1HnNoWgK9CRgpP3Jj PFMfkfryHu14dK0eByKzFy B9LDipU2Go emV0MHWloEIpSOykCOY8C2 6kc7I8HPCqVEGsHFY4nKE5 jC6irWhtzhtsnAVsiLrlex VydGljYWwt GIboU314DFRekRdeGwC2Cg I7LaN4LLK8F2QtEdy3WAYs iJmpHR9qtGZmZDkqNt9gfU rbnMbeZJ0z OOWdodhxFSNuxQ3uYPIbfE RfyFtxTN1hCCKccgbqu775 LyBnMWD1KPTwpXFwF5RgdG 9yOiAjMDAw XWQzP2TsuTZpJTeoQ844CE ujLzX3RZFojzOwT1XwGYTg hGeiXpQ2c1Y8Bb1tMLWKWH FyczwvdGQ+ DTLgGFT5iSqtLQdxSUXysF 2bNTDyO3h7YtFcSdI1CWuz T5XsKBUtuypnNb73aW9yOj CpNxX9EKpp R3UlbbW6RIBgdFWcUGgyXT Q2U59dm8J2NAFlPIYrYGC9 iCX4wS9ukSofelhjkLJcdJ sgdmVydGlj IKfzPBbqV102ULClzDlvUg ZFTUFMRTwvdGQ+PHRkIHN0 eNnsABgpXCYukF5kRHIpI3 w5MpXqKfU0 DIejI7NeZPObeysvIm23hT 4fCjDbZiG9AAwmF7RmpnZ9 SRXdmBDcWIfxRFW7N60ks1 C3JBHqWMPr MQM4fDC2rR8ceJbecceqjT VmdDsgdmVydGljYWwtYWxp G088UBJshTziGvFoYJIqJW 5jeTwvdGQ+ RV37yo32E1GhHaizMct1OK CiQMJ2fEE7vJ6rMMTpCDek i9H4tLM9Q0WuugQjin3vr9 xsYXBzZTog C03qwRUmo0N5YGYpnCD8ER OjfHjmGzHjqU06Eul+PGNv oRekz4QsAvvac0aah5utkO f0CbFpOCMs kkKbhZntTDA2f2VkHi05K6 9sIHdpZHRoPSIzMCUiIHZh dDlkoq7piQ5aXe4+PGNvbC G9hFA1nU8a DaYbIjN3XIklS647RxPuuO VjGhssk5oep8olgFs5RhTy ZXWsurMowFjwVAV1m2YyJc 77S8EleTtm h8WcTlb7iy19yAYri8N4fW X8M2WuYHHigclsbVNgxPou CO9lNDVnpahkFLEtqJ3lJF RiO8k2UdBv VxH6VVwqE2OccqC9XWQvaD IoSDFwvLTMeA9dcbhlu4fa xlqeEjZoRLSnHAr2BFq5TQ FsaWduOiBs MNC4VfB3LFK7cBCawA7lsC yaxcvwtW8tTrx+GOm9g5co wRTrHR6scTL1AR54TD25vV Ptb7M7sLH1 Y1XsJFOfggwzzbqmoRR2PK NpUSNnhA97Br5yoTemGw1l NXBrNYO1WOZhnXLvO7NwzP 9yOiAjMDAw EIBrP0BuwSYiPCtqW444XY atWtL7RMEtbjOcB2ReZRXd oLnxMmM6m0C3On3RUI95TA 64UZ00rKSr z8W7bVP6Q0DgMPFuvezifs pjkWW8KRGkHKIyaZ58Jt7n hKpmPe5qCMJzUYR8RBBwoM JuE4GhiU5b ScPrNIAxAPYmF0YwyIExTS rsV056WEinOxE4ZYOeygKq Z9YxEJTclZbtWuK3t7F0Rm 7WMt25OD06 ID18aCHbq5V2eNU8O7WyXG BnnivustkezKM3LHIiZFRn hM82Xc6ouClwXw4oMBIqCH O9LFKbmXRt R0VriX9gWcUpVXHtWKCnN1 XbqBTzXOpaB619WHomEzO6 SXNtdxInQ1ZnCZAudVhoSn U8n3K2Xk5V XKgnbpc5I2XxVcuccZW+PC 77ZIPpQE81oJQatPEsg9qn dTx7NxFoGTKpDRM1gKitJE yxm5WaEOIs Y29 (more content not included)... Normal [facility] ED Note-Nursingon 07-17-2024 ED Note-Nursing Patient presents to ER via private car with c/o right foot pain. Patient states I remember walking down the stairs and I didn't fall I didn't trip. It just started hurting. This was 2-3 weeks ago. The pain hurts on the inside of my foot like by the arch to my ankle. I took Tylenol about an hour ago. Patient respirations even and unlabored. Patient A&O x4. Patient to ER room 7. [facility] XR Foot Complete Righton XR Foot Complete Right EXAM: XR Foot Complete Right HISTORY: foot pain COMPARISON: Right foot radiographs 06/05/2017 at [place] TECHNIQUE: 3 views of the right foot FINDINGS: No acute fracture or soft tissue swelling. 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 Joint spaces in the mid foot are maintained. No radiopaque foreign body. IMPRESSION: No acute osseous abnormality. Final Dictated by: Gilmer Castro MD Dictated DT/TM: 07/17/24 9:26 Signed (Electronic Signature): Gilmer Castro MD 07/17/24 3:27 pm Technologist: MARIANA [facility] BUN, POCon 12-17-2023 Urea nitrogen [Mass/Vol] 21 mg/dL Normal 8-26 [facility] CALCIUM, IONIC (POC)on 12-16 Calcium.ionized (Bld) [Moles/Vol] 1.24 mmol/L 1.15 - 1.33 mmol/L [facility] Calcium, Ionic (POC)on 12-16 Calcium [Moles/Vol] 1.24 mmol/L Normal 1.15-1.33 [facility] Creatinine W/GFR Point of Ca reon 12-17-2023 Creatinine [Mass/Vol] 0.6 mg/dL 0.51 - 1.19 mg/dL [facility] eGFR, POC - PINF [facility] Comment on above: These results are not intended for use in patients <18 years of age. eGFR results are calculated without a race factor using the 2020 CKD-EPI equation. Careful clinical correlation is recommended, particularly when comparing to results calculated using previous equations. The CKD-EPI equation is less accurate in patients with extremes of muscle mass, extra-renal metabolism of creatine, excessive creatine ingestion, or following therapy that affects renal tubular secretion. Creatinine w/GFR, POCon 11-19 Creatinine [Mass/Vol] 0.6 mg/dL Normal 0.51-1.19 [facility] GFR/1.73 sq M.predicted among non-blacks MDRD (S/P/Bld) [Vol rate/Area] mL/min/{1.73_m2} Normal >60 [facility] Comment on above: Result Comment: These results are not intended for use in patients <18 years of age. eGFR results are calculated without a race factor using the 2020 CKD-EPI equation. Careful clinical correlation is recommended, particularly when comparing to results calculated using previous equations. The CKD-EPI equation is less accurate in patients with extremes of muscle mass, extra-renal metabolism of creatine, excessive creatine ingestion, or following therapy that affects renal tubular secretion. ELECTROLYTES PLUSon 12-17-19 Anion gap [Moles/Vol] 12 mmol/L 7 - 16 mmol/L [facility] Chloride [Moles/Vol] 104 mmol/L 98 - 10 7 mmol/L [facility] CO2 Calc (Bld) [Moles/Vol] 27 mmol/L 22 - 30 mmol/L [facility] Potassium [Moles/Vol] 4.4 mmol/L 3.5 - 4.5 mmol/L [facility] Sodium [Moles/Vol] 142 mmol/L 138 - 146 mmol/L [facility] Electrolyteson 12-17-2023 Anion gap [Moles/Vol] 12 mmol/L Normal 7-16 [facility] Chloride [Moles/Vol] 104 mmol/L Normal 98-107 [facility] CO2 [Moles/Vol] 27 mmol/L Normal 22-30 [facility] Potassium [Moles/Vol] 4.4 mmol/L Normal 3.5-4.5 [facility] Sodium [Moles/Vol] 142 mmol/L Normal 138-146 [facility] Glucose (POC)on 12-17-2023 Glucose [Mass/Vol] 107 mg/dL High 74-100 [facility] Hemoglobin and hematocrit, b loodon 12-17-2023 Hematocrit (Bld) [Volume fraction] 41 % 36 - 46 % [facility] Hemoglobin (Bld) [Mass/Vol] 13.8 g/dL 12.0 - 16.0 g/dL [facility] [employer] Hgb/Hct, POCon 12-17-2023 Hematocrit (Bld) [Volume fraction] 41 % Normal 36-46 [facility] Hemoglobin (Bld) [Mass/Vol] 13.8 g/dL Normal 12.0-16.0 [facility] Lipid Panelon 12-17-2023 Cholesterol [Mass/Vol] 154 mg/dL 0 - 199 mg/dL [facility] [employer] Comment on above: Cholesterol Guidelines: <200 Desirable 200-240 Borderline >240 Undesirable Cholesterol in HDL [Mass/Vol] 63 mg/dL 40 - PINF mg/dL [facility] [employer] Comment on above: HDL Guidelines: <40 Undesirable 40-59 Borderline >59 Desirable Cholesterol in LDL [Mass/Vol] 77 mg/dL 0 - 100 mg/dL [facility] [employer] Comment on above: LDL Guidelines: <100 Desirable 100-129 Near to/above Desirable 130-159 Borderline >159 Undesirable Direct (measured) LDL and calculated LDL are not interchangeable tests. Cholesterol in VLDL [Mass/Vol] 14 mg/dL [facility] [employer] Cholesterol.total/Ch olesterol in HDL [Mass ratio] 2.0 {ratio} [facility] [employer] Triglyceride [Mass/Vol] 68 mg/dL NINF - 150 mg/dL [facility] [employer] Comment on above: Triglyceride Guidelines: <150 Desirable 150-199 Borderline 200-499 High >499 Very high Based on AHA Guidelines for fasting triglyceride, January 2012. Lipid Profileon 12-17-2023 Cholesterol [Mass/Vol] 154 mg/dL Normal 0-199 [facility] Comment on above: Result Comment: Cholesterol Guidelines: <200 Desirable 200-240 Borderline >240 Undesirable Performed By: #### L IPR, ANAM #### [employer] [facility] [place] [address] Bake Room Worker: Hemant June MD Cholesterol in HDL [Mass/Vol] 63 mg/dL Normal >40 [facility] Comment on above: Result Comment: HDL Guidelines: <40 Undesirable 40-59 Borderline >59 Desirable Performed By: #### L IPR, ANAM #### [employer] [address] [place] [address] [employer] Worker: Hemant June MD Cholesterol in LDL [Mass/Vol] 77 mg/dL Normal 0-100 [facility] Comment on above: Result Comment: LDL Guidelines: <100 Desirable 100-129 Near to/above Desirable 130-159 Borderline >159 Undesirable Direct (measured) LDL and calculated LDL are not interchangeable tests. Performed By: #### L IPR, ANAM #### [employer] [address] [place] [address] [employer] Worker: Hemant June MD Cholesterol in VLDL [Mass/Vol] 14 mg/dL Normal [facility] Comment on above: Performed By: #### L IPR, ANAM #### [employer] [address] [place] [address] Bake Room Worker: Hemant June MD Cholesterol.total/Ch olesterol in HDL [Mass ratio] 2.0 {ratio} Normal [facility] Comment on above: Performed By: #### L IPR, ANAM #### [employer] [address] [place] [address] Bake [employer] Worker: Hemant June MD Triglyceride [Mass/Vol] 68 mg/dL Normal <150 [facility] Comment on above: Result Comment: Triglyceride Guidelines: <150 Desirable 150-199 Borderline 200-499 High >499 Very high Based on AHA Guidelines for fasting triglyceride, January 2012. Performed By: #### L IPR, ANAM #### [employer] [address] [place] [phone] [employer] Worker: Hemant June MD No [facility] 12-16 [facility] Glucoseon 12-17-2023 Glucose [Mass/Vol] 107 mg/dL High 74 - 100 mg/dL [facility] [employer] Interpretation and review of laboratory results Abnormal [facility] POCT urea (BUN)on 12-17-2023 Urea nitrogen [Mass/Vol] 21 mg/dL 8 - 26 mg/dL [facility] Phosphoruson 12-17-2023 Phosphate [Mass/Vol] 4.1 mg/dL 2.5 - 4 .5 mg/dL [facility] Phosphorus, Inorg.on 024 Phosphorus, Inorg. 4.1 mg/dL Normal 2.5-4.5 [facility] Comment on above: Performed By: #### L IPR, ANAM #### [facility] [address] [place] [address] Bake Room Worker: Hemant June MD CBC with Auto Differentialon 11-21-2023 Basophils (Bld) [#/Vol] 0.03 10*3/uL [facility] Basophils/100 WBC (Bld) 0 % 0 - 2 % [facility] Eosinophils (Bld) [#/Vol] 0.11 10*3/uL [facility] Eosinophils/100 WBC (Bld) 2 % 1 - 4 % [facility] Erythrocyte distribution width (RBC) [Ratio] 11.9 % 11.8 - 14.4 % [facility] Hematocrit (Bld) [Volume fraction] 43.1 % 36.3 - 47.1 % [facility] Hemoglobin (Bld) [Mass/Vol] 13.9 g/dL 11.9 - 15.1 g/dL [facility] Immature granulocytes (Bld) [#/Vol] [facility] Immature granulocytes/100 WBC (Bld) 0 % 0 [facility] Interpretation and review of laboratory results Abnormal [facility] Lymphocytes/100 WBC (Bld) 26 % 24 - 43 % [facility] Lymphocytes/100 WBC (Bld) 1.88 % [facility] MCH (RBC) [Entitic mass] 30.4 pg 25.2 - 33.5 pg [facility] MCHC (RBC) [Mass/Vol] 32.3 g/dL 28.4 - 34.8 g/dL [facility] MCV (RBC) [Entitic vol] 94.3 fL 82.6 - 102.9 fL [facility] Monocytes/100 WBC (Bld) 6 % 3 - 12 % [facility] Monocytes/100 WBC (Bld) 0.43 % [facility] Neutrophils/100 WBC (Bld) 66 % High 36 - 65 % [facility] Nucleated RBC/100 WBC (Bld) [Ratio] 0.0 % 0.0 per 100 WBC [facility] [employer] Platelet mean volume (Bld) [Entitic vol] 10.6 fL 8.1 - 13.5 fL [facility] [employer] Platelets (Bld) [#/Vol] 210 10*3/uL [facility] RBC (Bld) [#/Vol] 4.57 10*6/uL 3.95 - 5.1 1 m/uL [facility] Segmented neutrophils/100 WBC (Bld) 4.75 % [facility] WBC other (Bld) [#/Vol] 7.2 [facility] CBC with Diffon 11-21-2023 Abs. Basophil 0.03 k/uL Normal 0.00-0.20 [facility] Comment on above: Performed By: #### C DP, HCG, CP #### [facility] [employer] [address] [place] [address] Bake Room Worker: Hemant June MD Abs.Imm.Granulocyte <0.03 Normal 0.00-0.30 [facility] Comment on above: Performed By: #### C DP, HCG, CP #### [facility] [address] [place] [address] Bake Room Worker: Hemant June MD Abs.Neutrophil (Seg) 4.75 k/uL Normal 1.50-8.10 [facility] Comment on above: Performed By: #### C DP, HCG, CP #### [facility] [address] [place] [address] Bake Room Worker: Hemant June MD Basophils/100 WBC (Bld) 0 % Normal 0-2 [facility] Comment on above: Performed By: #### C DP, HCG, CP #### [address] [address] Bake Room Worker: Hemant June MD Eosinophils (Bld) [#/Vol] 0.11 10*3/uL Normal 0.00-0.44 [facility] Comment on above: Performed By: #### C DP, HCG, CP #### [address] [address] Bake Room Worker: Hemant June MD Eosinophils/100 WBC (Bld) 2 % Normal 1-4 [facility] Comment on above: Performed By: #### C DP, HCG, CP #### [place] [address] Bake Room Worker: Hemant June MD Erythrocyte distribution width (RBC) [Ratio] 11.9 % Normal 11.8-14.4 [facility] Comment on above: Performed By: #### C DP, HCG, CP #### [address] [address] Bake Room Worker: Hemant June MD Hematocrit (Bld) [Volume fraction] 43.1 % Normal 36.3-47.1 [facility] Comment on above: Performed By: #### C DP, HCG, CP #### [address] [address] Bake Room Worker: Hemant June MD Hemoglobin (Bld) [Mass/Vol] 13.9 g/dL Normal 11.9-15.1 [facility] Comment on above: Performed By: #### C DP, HCG, CP #### [address] [address] Bake Room Worker: Hemant June MD Immature granulocytes/100 WBC (Bld) 0 % Normal 0 [facility] Comment on above: Performed By: #### C DP, HCG, CP #### [facility] [employer] [address] [place] [address] Bake Room Worker: Hemant June MD Lymphocytes (Bld) [#/Vol] 1.88 10*3/uL Normal 1.10-3.70 [facility] Comment on above: Performed By: #### C DP, HCG, CP #### [address] [address] Bake Room Worker: Hemant June MD Lymphocytes/100 WBC (Bld) 26 % Normal 24-43 [facility] Comment on above: Performed By: #### C DP, HCG, CP #### [place] [address] Bake Room Worker: Hemant June MD MCH (RBC) [Entitic mass] 30.4 pg Normal 25.2-33.5 [facility] Comment on above: Performed By: #### C DP, HCG, CP #### [place] [address] Bake Room Worker: Hemant June MD MCHC (RBC) [Mass/Vol] 32.3 g/dL Normal 28.4-34.8 [facility] Comment on above: Performed By: #### C DP, HCG, CP #### [place] [address] Bake Room Worker: Hemant June MD MCV (RBC) [Entitic vol] 94.3 fL Normal 82.6-102.9 [facility] Comment on above: Performed By: #### C DP, HCG, CP #### [place] [address] Bake Room Worker: Hemant June MD Monocytes (Bld) [#/Vol] 0.43 10*3/uL Normal 0.10-1.20 [facility] Comment on above: Performed By: #### C DP, HCG, CP #### [place] [address] Bake Room Worker: Hemant June MD Monocytes/100 WBC (Bld) 6 % Normal 3-12 [facility] Comment on above: Performed By: #### C DP, HCG, CP #### [address] [address] Bake Room Worker: Hemant June MD Neutrophil (Seg) 66 % High 36-65 [facility] Comment on above: Performed By: #### C DP, HCG, CP #### [facility] [employer] [address] [place] [phone] Bake Room Worker: Hemant June MD NRBC Automated 0.0 per 100 WBC Normal 0.0 [facility] Comment on above: Performed By: #### C DP, HCG, CP #### [address] [address] Bake Room Worker: Hemant June MD Platelet mean volume (Bld) [Entitic vol] 10.6 fL Normal 8.1-13.5 [facility] Comment on above: Performed By: #### C DP, HCG, CP #### [address] [address] Bake Room Worker: Hemant June MD Platelets (Bld) [#/Vol] 210 10*3/uL Normal 138-453 [facility] Comment on above: Performed By: #### C DP, HCG, CP #### [address] [address] Bake Room Worker: Hemant June MD RBC (Bld) [#/Vol] 4.57 10*6/uL Normal 3.95-5.11 [facility] Comment on above: Performed By: #### C DP, HCG, CP #### [facility] [employer] [address] [place] [phone] Bake Room Worker: Hemant June MD WBC (Bld) [#/Vol] 7.2 10*3/uL Normal 3.5-11.3 [facility] Comment on above: Performed By: #### C DP, HCG, CP #### [employer] [address] [place] [address] Bake Room Worker: Hemant June MD CT ABDOMEN PELVIS W IV CONTR [place] 11-21-2023 CT ABDOMEN PELVIS W IV CONTRAST EXAMINATION: CT OF THE ABDOMEN AND PELVIS WITH CONTRAST 11/21/2023 5:30 pm TECHNIQUE: CT of the abdomen and pelvis was performed with the administration of intravenous contrast. Multiplanar reformatted images are provided for review. Automated exposure control, iterative reconstruction, and/or weight based adjustment of the mA/kV was utilized to reduce the radiation dose to as low as reasonably achievable. COMPARISON: None. HISTORY: ORDERING SYSTEM PROVIDED HISTORY: inguinal/suprapubic hernia with worsened pain TECHNOLOGIST PROVIDED HISTORY: inguinal/suprapubic hernia with worsened pain Decision Support Exception - unselect if not a suspected or confirmed emergency medical condition->Emergency Medical Condition (MA) Reason for Exam: inguinal/suprapubic hernia with worsened pain FINDINGS: Lower Chest: Unremarkable. Organs: Liver is normal in contour and enhancement. Gallbladder is not seen. No biliary ductal dilatation. Pancreas, adrenals, kidneys, vasculature unremarkable. Mild splenomegaly. GI/Bowel: Bowel is nondilated without wall thickening. Appendix appears to be surgically absent. Pelvis: Complex cystic lesion of the left adnexa measuring 3.9 cm. Peritoneum/Retroperito neum: No free air, free fluid, organized fluid collection, lymphadenopathy. Faint omental fat stranding and nodularity in the left lower quadrant. Bones/Soft Tissues: No acute bone or soft tissue abnormality. Evidence of prior left inguinal hernia repair. Small fat containing umbilical hernia. IMPRESSION: 1. No acute process. 2. Evidence of left inguinal hernia repair. Small fat containing umbilical hernia. 3. Complex cystic lesion of the left adnexa measuring 2.9 cm. Recommend pelvic ultrasound. 4. Faint omental edema and nodularity. While this could be infectious/inflammator y in etiology, early changes of peritoneal carcinomatosis is in the differential. 5. Mild splenomegaly. Interpreted by: Abdulkadir Tsang MD Signed by: Abdulkadir Tsang MD 11/21/23 Final result Normal [facility] CT Abdomen and Pelvis W gertrude Marr 11-21-2023 1. No acute process. 2. Evidence of left inguinal hernia repair. Small fat containing umbilical hernia. 3. Complex cystic lesion of the left adnexa measuring 2.9 cm. Recommend pelvic ultrasound. 4. Faint omental edema and nodularity. While this could be infectious/inflammator y in etiology, early changes of peritoneal carcinomatosis is in the differential. 5. Mild splenomegaly. [facility] EXAMINATION: CT OF THE ABDOMEN AND PELVIS WITH CONTRAST 11/21/2023 5:30 pm TECHNIQUE: CT of the abdomen and pelvis was performed with the administration of intravenous contrast. Multiplanar reformatted images are provided for review. Automated exposure control, iterative reconstruction, and/or weight based adjustment of the mA/kV was utilized to reduce the radiation dose to as low as reasonably achievable. COMPARISON: None. HISTORY: ORDERING SYSTEM PROVIDED HISTORY: inguinal/suprapubic hernia with worsened pain TECHNOLOGIST PROVIDED HISTORY: inguinal/suprapubic hernia with worsened pain Decision Support Exception - unselect if not a suspected or confirmed emergency medical condition->Emergency Medical Condition (MA) Reason for Exam: inguinal/suprapubic hernia with worsened pain FINDINGS: Lower Chest: Unremarkable. Organs: Liver is normal in contour and enhancement. Gallbladder is not seen. No biliary ductal dilatation. Pancreas, adrenals, kidneys, vasculature unremarkable. Mild splenomegaly. GI/Bowel: Bowel is nondilated without wall thickening. Appendix appears to be surgically absent. Pelvis: Complex cystic lesion of the left adnexa measuring 3.9 cm. Peritoneum/Retroperito neum: No free air, free fluid, organized fluid collection, lymphadenopathy. Faint omental fat stranding and nodularity in the left lower quadrant. Bones/Soft Tissues: No acute bone or soft tissue abnormality. Evidence of prior left inguinal hernia repair. Small fat containing umbilical hernia. [facility] Abdulkadir Tsang MD - 11/21/2023 EXAMINATION: CT OF THE ABDOMEN AND PELVIS WITH CONTRAST 11/21/2023 5:30 pm TECHNIQUE: CT of the abdomen and pelvis was performed with the administration of intravenous contrast. Multiplanar reformatted images are provided for review. Automated exposure control, iterative reconstruction, and/or weight based adjustment of the mA/kV was utilized to reduce the radiation dose to as low as reasonably achievable. COMPARISON: None. HISTORY: ORDERING SYSTEM PROVIDED HISTORY: inguinal/suprapubic hernia with worsened pain TECHNOLOGIST PROVIDED HISTORY: inguinal/suprapubic hernia with worsened pain Decision Support Exception - unselect if not a suspected or confirmed emergency medical condition->Emergency Medical Condition (MA) Reason for Exam: inguinal/suprapubic hernia with worsened pain FINDINGS: Lower Chest: Unremarkable. Organs: Liver is normal in contour and enhancement. Gallbladder is not seen. No biliary ductal dilatation. Pancreas, adrenals, kidneys, vasculature unremarkable. Mild splenomegaly. GI/Bowel: Bowel is nondilated without wall thickening. Appendix appears to be surgically absent. Pelvis: Complex cystic lesion of the left adnexa measuring 3.9 cm. Peritoneum/Retroperito neum: No free air, free fluid, organized fluid collection, lymphadenopathy. Faint omental fat stranding and nodularity in the left lower quadrant. Bones/Soft Tissues: No acute bone or soft tissue abnormality. Evidence of prior left inguinal hernia repair. Small fat containing umbilical hernia. IMPRESSION: 1. No acute process. 2. Evidence of left inguinal hernia repair. Small fat containing umbilical hernia. 3. Complex cystic lesion of the left adnexa measuring 2.9 cm. Recommend pelvic ultrasound. 4. Faint omental edema and nodularity. While this could be infectious/inflammator y in etiology, early changes of peritoneal carcinomatosis is in the differential. 5. Mild splenomegaly. [facility] Radiology Study observation (narrative) [facility] CT Abdomen and Pelvis W cont rast IVOrdered By: Abdulkadir Tsang on 11-21-2023 [facility] Work Phone: Comp Metabolic Profon 2023 Albumin [Mass/Vol] 4.6 g/dL Normal 3.5-5.2 [facility] Comment on above: Performed By: #### C DP, HCG, CP #### [employer] [address] [place] [address] Bake Room Worker: Hemant June MD Albumin/Glob Ratio 2.0 Normal 1.0-2.5 [facility] Comment on above: Performed By: #### C DP, HCG, CP #### [address] [address] Bake Room Worker: Hemant June MD Alkaline Phos 66 U/L Normal 35-104 [facility] Comment on above: Performed By: #### C DP, HCG, CP #### [address] [address] Bake Room Worker: Hemant June MD ALT [Catalytic activity/Vol] 12 U/L Normal 10-35 [facility] Comment on above: Performed By: #### C DP, HCG, CP #### [address] [address] Bake Room Worker: Hemant June MD Anion gap [Moles/Vol] 11 mmol/L Normal 9-16 [facility] Comment on above: Performed By: #### C DP, HCG, CP #### [address] [address] Bake Room Worker: Hemant June MD AST [Catalytic activity/Vol] 22 U/L Normal 10-35 [facility] Comment on above: Performed By: #### C DP, HCG, CP #### [address] [address] Bake Room Worker: Hemant June MD Bilirubin [Mass/Vol] 0.3 mg/dL Normal 0.00-1.20 [facility] Comment on above: Performed By: #### C DP, HCG, CP #### [address] [address] Bake Room Worker: Hemant June MD Calcium [Mass/Vol] 8.9 mg/dL Normal 8.6-10.4 [facility] Comment on above: Performed By: #### C DP, HCG, CP #### [facility] [employer] [address] [place] [phone] Bake Room Worker: Hemant June MD Chloride [Moles/Vol] 105 mmol/L Normal 98-107 [facility] Comment on above: Performed By: #### C DP, HCG, CP #### [address] [address] [employer] Worker: Hemant June MD CO2 [Moles/Vol] 23 mmol/L Normal 20-31 [facility] Comment on above: Performed By: #### C DP, HCG, CP #### [facility] [employer] [address] [place] [id number] Bake Room Worker: Hemant June MD Creatinine [Mass/Vol] 0.7 mg/dL Normal 0.50-0.90 [facility] Comment on above: Performed By: #### C DP, HCG, CP #### [address] [address] [employer] Room Worker: Hemant June MD GFR/1.73 sq M.predicted among non-blacks MDRD (S/P/Bld) [Vol rate/Area] mL/min/{1.73_m2} Normal >60 [facility] Comment on above: Result Comment: These results are not intended for use in patients <18 years of age. eGFR results are calculated without a race factor using the 2020 CKD-EPI equation. Careful clinical correlation is recommended, particularly when comparing to results calculated using previous equations. The CKD-EPI equation is less accurate in patients with extremes of muscle mass, extra-renal metabolism of creatine, excessive creatine ingestion, or following therapy that affects renal tubular secretion. Performed By: #### C DP, HCG, CP #### [address] [address] Bake Room Worker: Hemant June MD Glucose [Mass/Vol] 76 mg/dL Normal 74-99 [facility] Comment on above: Performed By: #### C DP, HCG, CP #### [facility] [employer] [address] [place] [id number] Bake Room Worker: Hemant June MD Potassium [Moles/Vol] 3.7 mmol/L Normal 3.7-5.3 [facility] Comment on above: Result Comment: SPEC IMEN SLIGHTLY HEMOLYZED, RESULTS MAY BE ADVERSELY AFFECTED. Performed By: #### C DP, HCG, CP #### [employer] [facility] [place] [address] Bake Room Worker: Hemant June MD Protein [Mass/Vol] 7.5 g/dL Normal 6.6-8.7 [facility] Comment on above: Performed By: #### C DP, HCG, CP #### [employer] [facility] [place] [address] Bake Room Worker: Hemant June MD Sodium [Moles/Vol] 139 mmol/L Normal 136-145 [facility] Comment on above: Performed By: #### C DP, HCG, CP #### [employer] [facility] [place] [address] Bake Room Worker: Hemant June MD Urea nitrogen [Mass/Vol] 15 mg/dL Normal 6-20 [facility] Comment on above: Performed By: #### C DP, HCG, CP #### [employer] [facility] [place] [address] Bake Room Worker: Hemant June MD [facility] Metabolic Pane [facility] 11-21-2023 Albumin [Mass/Vol] 4.6 g/dL 3.5 - 5.2 g/dL [facility] Albumin/Globulin [Mass ratio] 2.0 {ratio} 1.0 - 2.5 [facility] ALP [Catalytic activity/Vol] 66 U/L 35 - 104 U/L [facility] ALT [Catalytic activity/Vol] 12 U/L 10 - 35 U/L [facility] Anion gap [Moles/Vol] 11 mmol/L 9 - 16 mmol/L [facility] AST [Catalytic activity/Vol] 22 U/L 10 - 35 U/L [facility] Bilirubin [Mass/Vol] 0.3 mg/dL 0.00 - 1.20 mg/dL [facility] Calcium [Mass/Vol] 8.9 mg/dL 8.6 - 10. 4 mg/dL [facility] Chloride [Moles/Vol] 105 mmol/L 98 - 10 7 mmol/L [facility] CO2 [Moles/Vol] 23 mmol/L 20 - 31 mmol/L [facility] Creatinine [Mass/Vol] 0.7 mg/dL 0.50 - 0.90 mg/dL [facility] [employer] - [facility] Comment on above: These results are not intended for use in patients <18 years of age. eGFR results are calculated without a race factor using the 2020 CKD-EPI equation. Careful clinical correlation is recommended, particularly when comparing to results calculated using previous equations. The CKD-EPI equation is less accurate in patients with extremes of muscle mass, extra-renal metabolism of creatine, excessive creatine ingestion, or following therapy that affects renal tubular secretion. Glucose [Mass/Vol] 76 mg/dL 74 - 99 mg/dL [facility] Potassium [Moles/Vol] 3.7 mmol/L 3.7 - 5.3 mmol/L [facility] Comment on above: SPECIMEN SLIGHTLY HE MOLYZED, RESULTS MAY BE ADVERSELY AFFECTED. Protein [Mass/Vol] 7.5 g/dL 6.6 - 8.7 g/dL [facility] Sodium [Moles/Vol] 139 mmol/L 136 - 145 mmol/L [facility] Urea nitrogen [Mass/Vol] 15 mg/dL 6 - 20 mg/dL [facility] HCG Qualitative, Serumon HCG ( test) Ql Negative NEGATIVE [facility] Comment on above: Specimens with hCG l evels near the threshold of the test (25 mIU/mL) may give a negative or indeterminate result. In such cases, another test should be performed with a new specimen in 48-72 hours. If early is suspected clinically in this setting, correlation with quantitative serum b-hCG level is suggested. [employer] has confirmed the use of plasma for this test. This has not been cleared or approved by the U.S. Food and Drug Administration. The FDA has determined that such clearance is not necessary. [facility] HCG Screen, Bloodon 11-21-19 24 HCG Screen, Blood Negative Normal NEG [facility] Comment on above: Result Comment: Spec imens with hCG levels near the threshold of the test (25 mIU/mL) may give a negative or indeterminate result. In such cases, another test should be performed with a new specimen in 48-72 hours. If early is suspected clinically in this setting, correlation with quantitative serum b-hCG level is suggested. [employer] has confirmed the use of plasma for this test. This has not been cleared or approved by the U.S. Food and Drug Administration. The FDA has determined that such clearance is not necessary. Performed By: #### C DP, HCG, CP #### [employer] [address] [place] [address] Bake Room Worker: Hemant June MD Ambulatory Visit Summaryon 1 04-22-2022 Ambulatory Visit Summary TIARA PARIKH :1985 Visit Date:02/20/2023 Ambulatory Visit Instructions Your Diagnosis Abscess of right breast unrelated to or Your Care Team Attending Physician - MYA TEMPLE, Miguelina Swanson Primary Care Physician - Harsh TEMPLE, Sherin This Is Your Medications List Contact prescribing physician if questions or concerns aripiprazole (Abilify 20 mg oral tablet) atomoxetine (Strattera 80 mg oral capsule) buprenorphine-naloxone (Suboxone 8 mg-2 mg sublingual film) gabapentin (gabapentin 800 mg Tab) mirabegron (Myrbetriq 50 mg oral tablet, extended release) ondansetron (Zofran ODT 4 mg Tab-Dis) valacyclovir (Valtrex 1 g Tab) Procedures Performed Abdominal hysterectomy, Appendectomy, section, Cholecystectomy, Colonoscopy, EGD - Esophagogastroduodenos copy, Essure., Laparoscopy, Ovarian cystectomy. Medications What How Much When Instructions Unchanged aripiprazole (Abilify 20 mg oral tablet) 1 Tablets By Mouth Every day Contact prescribing physician if questions or concerns Unchanged atomoxetine (Strattera 80 mg oral capsule) 1 Capsules By Mouth Once a day (in the morning) Contact prescribing physician if questions or concerns Unchanged buprenorphine-naloxone (Suboxone 8 mg-2 mg sublingual film) Sublingual Every day Contact prescribing physician if questions or concerns Unchanged gabapentin (gabapentin 800 mg Tab) By Mouth 3 times a day Contact prescribing physician if questions or concerns Unchanged mirabegron (Myrbetriq 50 mg oral tablet, extended release) 1 Tablets By Mouth Every day Contact prescribing physician if questions or concerns Unchanged ondansetron (Zofran ODT 4 mg Tab-Dis) 1 Tablets By Mouth Every 8 hours Contact prescribing physician if questions or concerns Unchanged valacyclovir (Valtrex 1 g Tab) 1 Tablets By Mouth Every day Contact prescribing physician if questions or concerns Allergies Elavil (Rash) NSAIDs (Anaphylactic reaction) Pristiq (Rash) Topamax (Unknown) cephalexin (Unknown) erythromycin (Anaphylactic reaction) morphine (Unknown) sulfamethoxazole-trime thoprim (Unknown) Problems Ongoing - Any problem that you are currently receiving treatment for. Abscess of right breast unrelated to or Anemia Bipolar disorder BMI 39.0-39.9,adult Cannabis abuse Chronic hepatitis C Crohn's disease Depression Eczema Heroin abuse Herpes Insomnia Left inguinal hernia Lumbar radiculopathy Mixed incontinence Morbid obesity Overactive bladder Polysubstance abuse Schizoaffective schizophrenia Sleep walking disorder Smoker Vapes nicotine containing substance Historical - Any problem that you are no longer receiving treatment for. Crohn disease Drug abuse Flank pain Frequency of urination Urinary frequency Patient Survey You may receive a survey via text or e-mail asking about your office visit. Please share your experience with us by completing your survey. We appreciate your feedback and thank you for choosing us for your care. [facility] General Surgery Office/Clini c Noteon 02-20-2023 General Surgery Office/Clinic Note Chief Complaint f/u excision granuloma and fistula HPI Staff Presents to follow up excision granuloma and fistula to nipple. Denies pain, open areas, bleeding, drainage, redness or edema. History of Present Illness 6 1/2 weeks s/p excision of right breast granuloma/fistula to nipple; doing well, no pain or drainage, no open areas of incision; also reports increased swelling and intermittent pain in left groin; no injury; ct scan in past with small defect and fat in unguinal canal. Review of Systems ROS - Provider Constitutional: no fever, no sweats, no weight loss. Eyes: no glasses, no blurred vision, no visual loss. ENMT: no dentures, no hoarseness, no swallowing difficulties, no hearing loss, no ear infection(s), no nose bleeds. Cardiovascular: normal blood pressure, no chest pain, regular heartbeat, no heart murmur. Respiratory: no shortness of breath, no cough, no asthma, no wheezing. Gastrointestinal: no nausea, no vomiting, no diarrhea, no constipation, no blood in stool, no change in bowel habits, no abdominal pain, no hepatitis. Genitourinary: no kidney stones, no urine infection, no dysuria. Musculoskeletal: no pain, no weakness. Skin: no changing moles, no rash, no skin lumps. Neurologic: no seizures, no epilepsy, no headache. Psychiatric: no emotional or psychiatric problem. Heme/Lymph: no bleeding problems, no anemia, no blood clots, no transfusions. Allergy/Immunologic: no swollen lymph nodes/glands, no IV drug abuse. Other: Additional ROS info: Except as noted in the above Review of Systems and in the History of Present Illness, all other systems have been reviewed and are negative or noncontributory. Physical Exam skin: right breast incision well-healed, small scab mid incision, no pain or drainage, nipple fistula gone; abd: obese, soft, no skin changes, mild left inguinal tenderness; partially reducible bulge, tender; normal bs. no masses. Assessment/Plan 1. Abscess of right breast unrelated to or (N61.1: Abscess of the breast and nipple) resolved; incision well-healed; call with problems/questions. Ordered: E&M of Est. Patient Low 20-29 Min [id number] 2. Left groin pain, (R10.32: Left lower quadrant pain)Left groin pain enlarged left inguinal bulge, tender; partially reducible; will check pelvic ct scan to evaluate or enlarging hernia, determine if bowel involvement; will call patient with results; call sooner if problems/questions. signs/symptoms of incarceration/strangul ation of hernia explained in detail, and patient understands that he should seek prompt medical evaluation if they were to occur. Ordered: CT Pelvis w/ Contrast 3. Left inguinal hernia (K40.90: Unilateral inguinal hernia, without obstruction or gangrene, not specified as recurrent) see # 2 Ordered: E&M of Est. Patient Low 20-29 Min [id number] Follow-up No qualifying data available Problem List/Past Medical History Ongoing Abscess of right breast unrelated to or Anemia Bipolar disorder BMI 39.0-39.9,adult Cannabis abuse Chronic hepatitis C Crohn's disease Depression Eczema Heroin abuse Herpes Insomnia Left groin pain Left inguinal hernia Lumbar radiculopathy Mixed incontinence Morbid obesity Overactive bladder Polysubstance abuse Schizoaffective schizophrenia Sleep walking disorder Smoker Vapes nicotine containing substance Historical Crohn disease Drug abuse Flank pain Frequency of urination Urinary frequency Procedure/Surgical History Abdominal hysterectomy, Appendectomy, section, Cholecystectomy, Colonoscopy, EGD - Esophagogastroduodenos copy, Essure., Laparoscopy, Ovarian cystectomy. Medications Abilify 20 mg oral tablet, 20 mg= 1 tab(s), Oral, Daily gabapentin 800 mg Tab, Oral, TID Myrbetriq 50 mg oral tablet, extended release, 50 mg= 1 tab(s), Oral, Daily, 11 refills Strattera 80 mg oral capsule, 80 mg= 1 cap(s), Oral, qAM Suboxone 8 mg-2 mg sublingual film, SubLingual, Daily Valtrex 1 g Tab, 1 gm= 1 tab(s), Oral, Daily Zofran ODT 4 mg Tab-Dis, 4 mg= 1 tab(s), Oral, q8hr, Not taking Allergies Elavil (Rash) NSAIDs (Anaphylactic reaction) Pristiq (Rash) Topamax (Unknown) cephalexin (Unknown) erythromycin (Anaphylactic reaction) morphine (Unknown) sulfamethoxazole-trime thoprim (Unknown) Social History Alcohol - Denies Alcohol Use, 11/06/2016 Substance Abuse - Medium Risk, 08/06/2022 Current, Marijuana, IV drug use: No. Drug use interferes with work/home: Yes. Household substance abuse concerns: No., 08/06/2022 Tobacco - High Risk, 11/06/2016 Former smoker, quit more than 30 days ago Tobacco Use:. Smokeless tobacco user within last 30 days Smokeless Tobacco Use:. Cigarettes, Vaping, Started age 21.0 Years. Yes, 11/11/2022 Family History Arthritis: Mother. Asthma: Mother. COPD: Mother. Cervical cancer: Grandparent. Diabetes mellitus type 1: Mother. Diabetes mellitus t (more content not included)... [facility] Comment on above: Result Comment: Elec tronically Signed By: Miguelina ROQUE MD\.br\Date and Time Signed: 02/20/23 14:32 EDT Ambulatory Visit Summaryon 1 Ambulatory Visit Summary TIARA PARIKH :1985 Visit Date:01/28/2023 Ambulatory Visit Instructions Your Diagnosis Abscess of right breast unrelated to or Your Care Team Attending Physician - Miguelina ROQUE MD Primary Care Physician - Sherin House MD This Is Your Medications List Contact prescribing physician if questions or concerns ampicillin (ampicillin 500 mg Cap) aripiprazole (Abilify 20 mg oral tablet) atomoxetine (Strattera 80 mg oral capsule) buprenorphine-naloxone (Suboxone 8 mg-2 mg sublingual film) gabapentin (gabapentin 800 mg Tab) mirabegron (Myrbetriq 50 mg oral tablet, extended release) ondansetron (Zofran ODT 4 mg Tab-Dis) valacyclovir (Valtrex 1 g Tab) Procedures Performed Abdominal hysterectomy, Appendectomy, section, Cholecystectomy, Colonoscopy, EGD - Esophagogastroduodenos copy, Essure., Laparoscopy, Ovarian cystectomy. What to do next Scheduled Follow-Up Appointments Thursday 1:00 PM EDT With: Miguelina ROQUE MD Where: General Surgery Mya/[facility] General Surgery Office/Clini c Noteon 01-28-2023 General Surgery Office/Clinic Note Chief Complaint post operative follow up HPI Staff 21 day post operative follow up post excision granuloma and scar tissue right breast. Patient telephoned 01/23 with complaint of open area to incision. Prophylactic ATB was prescribed. Patient started this Thursday morning as she developed green/yellow discharge. Denies pain, edema or erythema. History of Present Illness 3 weeks s/p excision granuloma and fistula to nipple; complains of intermittent drainage from open area in incision, no pain or fevers; began antibiotic 2 days ago, but not taking as prescribed. Review of Systems ;;gs Physical Exam skin: right breast incision with 2 mm open area, no cellulitis or erythema, minimal serous drainage; several monocryl suture knots protruding from incision. Assessment/Plan 1. Abscess of right breast unrelated to or (N61.1: Abscess of the breast and nipple) suture knots removed; keep area clean and dry, clean with rubbing alcohol bid and keep covered until scabs over; complete antibiotic as directed; f/u in 1 week, call sooner if problems/questions. Follow-up No qualifying data available Problem List/Past Medical History Ongoing Abscess of right breast unrelated to or Anemia Bipolar disorder BMI 39.0-39.9,adult Cannabis abuse Chronic hepatitis C Crohn's disease Depression Eczema Heroin abuse Herpes Insomnia Left inguinal hernia Lumbar radiculopathy Mixed incontinence Morbid obesity Overactive bladder Polysubstance abuse Schizoaffective schizophrenia Sleep walking disorder Smoker Vapes nicotine containing substance Historical Crohn disease Drug abuse Flank pain Frequency of urination Urinary frequency Procedure/Surgical History Abdominal hysterectomy, Appendectomy, section, Cholecystectomy, Colonoscopy, EGD - Esophagogastroduodenos copy, Essure., Laparoscopy, Ovarian cystectomy. Medications Abilify 20 mg oral tablet, 20 mg= 1 tab(s), Oral, Daily ampicillin 500 mg Cap, 500 mg= 1 cap(s), Oral, QID, 1 refills gabapentin 800 mg Tab, Oral, TID Myrbetriq 50 mg oral tablet, extended release, 50 mg= 1 tab(s), Oral, Daily, 11 refills Strattera 80 mg oral capsule, 80 mg= 1 cap(s), Oral, qAM Suboxone 8 mg-2 mg sublingual film, SubLingual, Daily Valtrex 1 g Tab, 1 gm= 1 tab(s), Oral, Daily Zofran ODT 4 mg Tab-Dis, 4 mg= 1 tab(s), Oral, q8hr, Not taking Allergies Elavil (Rash) NSAIDs (Anaphylactic reaction) Pristiq (Rash) Topamax (Unknown) cephalexin (Unknown) erythromycin (Anaphylactic reaction) morphine (Unknown) sulfamethoxazole-trime thoprim (Unknown) Social History Alcohol - Denies Alcohol Use, 11/06/2016 Substance Abuse - Medium Risk, 08/06/2022 Current, Marijuana, IV drug use: No. Drug use interferes with work/home: Yes. Household substance abuse concerns: No., 08/06/2022 Tobacco - High Risk, 11/06/2016 Former smoker, quit more than 30 days ago Tobacco Use:. Smokeless tobacco user within last 30 days Smokeless Tobacco Use:. Cigarettes, Vaping, Started age 21.0 Years. Yes, 11/11/2022 Family History Arthritis: Mother. Asthma: Mother. COPD: Mother. Cervical cancer: Grandparent. Diabetes mellitus type 1: Mother. Diabetes mellitus type 2: Father. Heart disease: Mother and Brother. Hypertension: Mother. Osteoporosis: Mother. Uterine cancer: Grandparent. Immunizations Vaccine Date Status Comments influenza virus vaccine, inactivated - Not Given Patient Refuses SARS-CoV-2 (COVID-19) mRNA-1273 vaccine 09/13/2020 Recorded SARS-CoV-2 (COVID-19) mRNA-1273 vaccine 08/16/2020 Recorded SARS-CoV-2 (COVID-19) mRNA-1273 vaccine 2020 Recorded pt has had 2 shots [facility] Comment on above: Result Comment: Elec tronically Signed By: MYA TEMPLE, Miguelina Swanson\.br\Date and Time Signed: 01/28/23 14:20 EDT Ambulatory Visit Summaryon 0 01-14-2023 Ambulatory Visit Summary TIARA PARIKH :1985 Visit Date:01/14/2023 Ambulatory Visit Instructions Your Care Team Attending Physician - Miguelina ROQUE MD Primary Care Physician - Sherin House MD This Is Your Medications List aripiprazole (Abilify 20 mg oral tablet) atomoxetine (Strattera 80 mg oral capsule) buprenorphine-naloxone (Suboxone 8 mg-2 mg sublingual film) gabapentin (gabapentin 800 mg Tab) mirabegron (Myrbetriq 50 mg oral tablet, extended release) ondansetron (Zofran ODT 4 mg Tab-Dis) valacyclovir (Valtrex 1 g Tab) Procedures Performed Abdominal hysterectomy, Appendectomy, section, Cholecystectomy, Colonoscopy, EGD - Esophagogastroduodenos copy, Essure., Laparoscopy, Ovarian cystectomy. What to do next Scheduled Follow-Up Appointments Thursday 2:00 PM EDT With: Miguelina ROQUE MD Where: General Surgery Mya/[facility] General Surgery Office/Clini c Noteon 01-14-2023 General Surgery Office/Clinic Note Chief Complaint post operative follow up HPI Staff 7 day post operative follow up post excision granuloma and scar tissue right subareolar breast. Denies discomfort, no use of pain medication. Reports scant serosanguineous drainage on gauze pad placed in bra. Taking ATB as prescribed; she has one remaining dose. History of Present Illness 1 week s/p excision right breast subareolar granuloma and sinus tract to nipple, from piercing; doing well; no pain or drainage; completed antibiotics; no fevers or skin changes. Review of Systems ROS - Provider Constitutional: no fever, no sweats, no weight loss. Eyes: no glasses, no blurred vision, no visual loss. ENMT: no dentures, no hoarseness, no swallowing difficulties, no hearing loss, no ear infection(s), no nose bleeds. Cardiovascular: normal blood pressure, no chest pain, regular heartbeat, no heart murmur. Respiratory: no shortness of breath, no cough, no asthma, no wheezing. Gastrointestinal: no nausea, no vomiting, no diarrhea, no constipation, no blood in stool, no change in bowel habits, no abdominal pain, no hepatitis. Genitourinary: no kidney stones, no urine infection, no dysuria. Musculoskeletal: no pain, no weakness. Skin: no changing moles, no rash, no skin lumps. Neurologic: no seizures, no epilepsy, no headache. Psychiatric: no emotional or psychiatric problem. Heme/Lymph: no bleeding problems, no anemia, no blood clots, no transfusions. Allergy/Immunologic: no swollen lymph nodes/glands, no IV drug abuse. Other: Additional ROS info: Except as noted in the above Review of Systems and in the History of Present Illness, all other systems have been reviewed and are negative or noncontributory. Physical Exam skin: incision healing well, no erythema or drainage, no ecchymosis. Assessment/Plan 1. Abscess of right breast unrelated to or (N61.1: Abscess of the breast and nipple) doing well, continue to wear bra, even at night for next week; minimize nicotine; f/u in 2 weeks; call sooner if problems/questions. Follow-up No qualifying data available Problem List/Past Medical History Ongoing Abscess of right breast unrelated to or Anemia Bipolar disorder BMI 39.0-39.9,adult Cannabis abuse Chronic hepatitis C Crohn's disease Depression Eczema Heroin abuse Herpes Insomnia Left inguinal hernia Lumbar radiculopathy Mixed incontinence Morbid obesity Overactive bladder Polysubstance abuse Schizoaffective schizophrenia Sleep walking disorder Smoker Vapes nicotine containing substance Historical Crohn disease Drug abuse Flank pain Frequency of urination Urinary frequency Procedure/Surgical History Abdominal hysterectomy, Appendectomy, section, Cholecystectomy, Colonoscopy, EGD - Esophagogastroduodenos copy, Essure., Laparoscopy, Ovarian cystectomy. Medications Abilify 20 mg oral tablet, 20 mg= 1 tab(s), Oral, Daily gabapentin 800 mg Tab, Oral, TID Myrbetriq 50 mg oral tablet, extended release, 50 mg= 1 tab(s), Oral, Daily, 11 refills Strattera 80 mg oral capsule, 80 mg= 1 cap(s), Oral, qAM Suboxone 8 mg-2 mg sublingual film, SubLingual, Daily Valtrex 1 g Tab, 1 gm= 1 tab(s), Oral, Daily Zofran ODT 4 mg Tab-Dis, 4 mg= 1 tab(s), Oral, q8hr, Not taking Allergies Elavil (Rash) NSAIDs (Anaphylactic reaction) Pristiq (Rash) Topamax (Unknown) cephalexin (Unknown) erythromycin (Anaphylactic reaction) morphine (Unknown) sulfamethoxazole-trime thoprim (Unknown) Social History Alcohol - Denies Alcohol Use, 11/06/2016 Substance Abuse - Medium Risk, 08/06/2022 Current, Marijuana, IV drug use: No. Drug use interferes with work/home: Yes. Household substance abuse concerns: No., 08/06/2022 Tobacco - High Risk, 11/06/2016 Former smoker, quit more than 30 days ago Tobacco Use:. Smokeless tobacco user within last 30 days Smokeless Tobacco Use:. Cigarettes, Vaping, Started age 21.0 Years. Yes, 11/11/2022 Family History Arthritis: Mother. Asthma: Mother. COPD: Mother. Cervical cancer: Grandparent. Diabetes mellitus type 1: Mother. Diabetes mellitus type 2: Father. Heart disease: Mother and Brother. Hypertension: Mother. Osteoporosis: Mother. Uterine cancer: Grandparent. Immunizations Vaccine Date Status Comments influenza virus vaccine, inactivated - Not Given Patient Refuses SARS-CoV-2 (COVID-19) mRNA-1273 vaccine 09/13/2020 Recorded SARS-CoV-2 (COVID-19) mRNA-1273 vaccine 08/16/2020 Recorded SARS-CoV-2 (COVID-19) mRNA-1273 vaccine 2020 Recorded pt has had 2 shots [facility] Comment on above: Result Comment: Elec tronically Signed By: MYA TEMPLE, Miguelina Solis\Date and Time Signed: 01/14/23 17:16 EDT Pathology Noteon 01-14-2023 Pathology Note [id number] 0CD:127 [facility] Operative Reporton Operative Report [id number] CD:127 [facility] Lab Reportson 01-12-2023 Lab Reports [id number] CD:127 [facility] Lab Reports [id number]#1.00 CD:127 [facility] Lab Reportson 01-09-2023 Lab Reports [id number] 0CD:127 [facility] Lab Reports [id number]#1.0 0CD:127 [facility] Lab Reportson 01-07-2023 Lab Reports [id number] 0CD:127 [facility] Lab Reportson 12-26-2022 Lab Reports [id number] 0CD:127 [facility] Lab Reportson 12-25-2022 Lab Reports [id number]#1.0 0CD:127 [facility] RAD - MISCon 12-25-2022 RAD - MISC [id number]#1.00 CD:127 [facility] Consent for Procedure/Surger yon 12-24-2022 Consent for Procedure/Surgery [id number] 0CD:127 [facility] Insurance Correspondenceon 0 12-24-2022 Insurance Correspondence [id number] 0CD:127 [facility] General Surgery Office/Clini c Noteon 12-23-2022 General Surgery Office/Clinic Note Chief Complaint f/u breast abscess HPI Staff Presents to follow up right breast abscess. Reports has resolved. Some redness remains. Occasional white discharge from previous piercing site. Taking Augmentin as prescribed. History of Present Illness follow up aspiration of right breast recurrent subareolar abscess; doing well; no pain or swelling, cellulitis resolved; occasional cloudy drainage from nipple piercing scar. on nicotine gum to try and quite vaping. no fevers. Review of Systems ROS - Provider Constitutional: no fever, no sweats, no weight loss. Eyes: no glasses, no blurred vision, no visual loss. ENMT: no dentures, no hoarseness, no swallowing difficulties, no hearing loss, no ear infection(s), no nose bleeds. Cardiovascular: normal blood pressure, no chest pain, regular heartbeat, no heart murmur. Respiratory: no shortness of breath, no cough, no asthma, no wheezing. Gastrointestinal: no nausea, no vomiting, no diarrhea, no constipation, no blood in stool, no change in bowel habits, no abdominal pain, no hepatitis. Genitourinary: no kidney stones, no urine infection, no dysuria. Musculoskeletal: no pain, no weakness. Skin: no changing moles, no rash, no skin lumps. Neurologic: no seizures, no epilepsy, no headache. Psychiatric: no emotional or psychiatric problem. Heme/Lymph: no bleeding problems, no anemia, no blood clots, no transfusions. Allergy/Immunologic: no swollen lymph nodes/glands, no IV drug abuse. Other: Additional ROS info: Except as noted in the above Review of Systems and in the History of Present Illness, all other systems have been reviewed and are negative or noncontributory. Physical Exam HEENT: normal conjunctiva, sclera clear, no scleral icterus, EOM intact, PERRLA. oral mucosa moist without lesions Neck: trachea midline , no mass, symmetric, no thyromegaly or nodules. no adenopathy Respiratory: lungs CTA, respirations non labored. Cardiovascular: regular rate and rhythm, no murmur, , no pedal edema or varicosities. Chest (Breasts): symmetric, no discharge, minimal right subareolar induration; nontender, no erythema; scar right medial nipple from piercing, no drainage; masses or tenderness. Gastrointestinal:obese , soft, non distended, no tenderness, no masses, no palpable hernias, diastasis recti no, no hepatosplenomegaly. normal bs Lymphatic: no cervical adenopathy, no axillary adenopathy, no supraclavicular adenopathy. Musculoskeletal: normalgait, digits and nails without infection, nodes, cyanosis, clubbing. Skin: no rashes, no lesions, no ulcers, no subcutaneous nodules, induration. Psychiatric/Neuro: oriented to time, place, person, judgement normal, affect appropriate for age, insight intact, no focal deficits. Tests: x-rays reviewed, review of old records completed, Discussed surgical options, risks, and possible complications with patient. Assessment/Plan 1. Abscess of right breast unrelated to or (N61.1: Abscess of the breast and nipple) recurrent, likely from fistula tract from nipple piercing scar/chronic granulation tissue; complete course of antibiotics; discontinue vaping; will proceed with excision of subareolar scar/granulation tissue and nipple fistula under general anesthesia; informed consent obtained. Ancef 2 gms IV prior to OR SCDs Follow-up No qualifying data available Problem List/Past Medical History Ongoing Abscess of right breast unrelated to or Anemia Bipolar disorder BMI 39.0-39.9,adult Cannabis abuse Chronic hepatitis C Crohn's disease Depression Eczema Heroin abuse Herpes Insomnia Left inguinal hernia Lumbar radiculopathy Mixed incontinence Morbid obesity Overactive bladder Polysubstance abuse Schizoaffective schizophrenia Sleep walking disorder Smoker Vapes nicotine containing substance Historical Crohn disease Drug abuse Flank pain Frequency of urination Urinary frequency Procedure/Surgical History Abdominal hysterectomy, Appendectomy, section, Cholecystectomy, Colonoscopy, EGD - Esophagogastroduodenos copy, Essure., Laparoscopy, Ovarian cystectomy. Medications Abilify 20 mg oral tablet, 20 mg= 1 tab(s), Oral, Daily gabapentin 800 mg Tab, Oral, TID Myrbetriq 50 mg oral tablet, extended release, 50 mg= 1 tab(s), Oral, Daily, 11 refills Strattera 80 mg oral capsule, 80 mg= 1 cap(s), Oral, qAM Suboxone 8 mg-2 mg sublingual film, SubLingual, Daily Valtrex 1 g Tab, 1 gm= 1 tab(s), Oral, Daily Zofran ODT 4 mg Tab-Dis, 4 mg= 1 tab(s), Oral, q8hr, Not taking Allergies Elavil (Rash) NSAIDs (Anaphylactic reaction) Pristiq (Rash) Topamax (Unknown) cephalexin (Unknown) erythromycin (Anaphylactic reaction) morphine (Unknown) sulfamethoxazole-trime thoprim (Unknown) Social History Alcohol - Denies Alcohol Use, 11/06/2016 Substance Abuse - Medium Risk, 08/06/2022 Current, Marijuana, IV drug use: No. Drug use inte (more content not included)... [facility] Comment on above: Result Comment: Elec tronically Signed By: MYA TEMPLE, Miguelina Swanson\.br\Date and Time Signed: 12/23/22 17:03 EDT Ambulatory Visit Summaryon 0 12-16-2022 Ambulatory Visit Summary PARIKHTIARA Kiki :1985 Visit Date:12/16/2022 Ambulatory Visit Instructions Your Care Team Attending Physician - Miguelina ROQUE MD Primary Care Physician - Sherin House MD This Is Your Medications List aripiprazole (Abilify 20 mg oral tablet) atomoxetine (Strattera 80 mg oral capsule) buprenorphine-naloxone (Suboxone 8 mg-2 mg sublingual film) gabapentin (gabapentin 800 mg Tab) mirabegron (Myrbetriq 50 mg oral tablet, extended release) ondansetron (Zofran ODT 4 mg Tab-Dis) valacyclovir (Valtrex 1 g Tab) Procedures Performed Abdominal hysterectomy, Appendectomy, section, Cholecystectomy, Colonoscopy, EGD - Esophagogastroduodenos copy, Essure., Laparoscopy, Ovarian cystectomy. What to do next Scheduled Follow-Up Appointments Thursday 2:00 PM EDT With: Miguelina ROQUE MD Where: General Surgery Nill/[facility] General Surgery Office/Clini c Noteon 12-16-2022 General Surgery Office/Clinic Note Chief Complaint follow up breast abscess HPI Staff 5 day follow up post aspiration right breast abscess. Pain, swelling and erythema are improving. Continues on Clindamycin and Cipro. History of Present Illness 5 days s/p aspiration of right breast subareolar recurrent abscess; improved pain; no fevers; decreased swelling; pathology with Enterococcus faecalis; same as last time; discontinued Augmentin; on Cipro and Clindamycin; occasional serous drainage from right nipple. Review of Systems ROS - Provider Constitutional: no fever, no sweats, no weight loss. Eyes: no glasses, no blurred vision, no visual loss. ENMT: no dentures, no hoarseness, no swallowing difficulties, no hearing loss, no ear infection(s), no nose bleeds. Cardiovascular: normal blood pressure, no chest pain, regular heartbeat, no heart murmur. Respiratory: no shortness of breath, no cough, no asthma, no wheezing. Gastrointestinal: no nausea, no vomiting, no diarrhea, no constipation, no blood in stool, no change in bowel habits, no abdominal pain, no hepatitis. Genitourinary: no kidney stones, no urine infection, no dysuria. Musculoskeletal: no pain, no weakness. Skin: no changing moles, no rash, no skin lumps. Neurologic: no seizures, no epilepsy, no headache. Psychiatric: no emotional or psychiatric problem. Heme/Lymph: no bleeding problems, no anemia, no blood clots, no transfusions. Allergy/Immunologic: no swollen lymph nodes/glands, no IV drug abuse. Other: Additional ROS info: Except as noted in the above Review of Systems and in the History of Present Illness, all other systems have been reviewed and are negative or noncontributory. Physical Exam skin: right breast with decreased edema, minimal erythema, mild subareolar induration; no drainage, no fluctuance; minimal tenderness. Assessment/Plan 1. Abscess of right breast unrelated to or (N61.1: Abscess of the breast and nipple) recurrent; same organism on cx; recommend taking Augmentin; discontinue Cipro and Clindamycin; discontinue nicotine products; will likely require subareolar excision of scar/sinus tract to nipple; f/u in 1 week for reevaluation; call sooner if problems/questions. Follow-up No qualifying data available Problem List/Past Medical History Ongoing Abscess of right breast unrelated to or Anemia Bipolar disorder BMI 39.0-39.9,adult Cannabis abuse Chronic hepatitis C Crohn's disease Depression Eczema Heroin abuse Herpes Insomnia Left inguinal hernia Lumbar radiculopathy Mixed incontinence Morbid obesity Overactive bladder Polysubstance abuse Schizoaffective schizophrenia Sleep walking disorder Smoker Vapes nicotine containing substance Historical Crohn disease Drug abuse Flank pain Frequency of urination Urinary frequency Procedure/Surgical History Abdominal hysterectomy, Appendectomy, section, Cholecystectomy, Colonoscopy, EGD - Esophagogastroduodenos copy, Essure., Laparoscopy, Ovarian cystectomy. Medications Abilify 20 mg oral tablet, 20 mg= 1 tab(s), Oral, Daily gabapentin 800 mg Tab, Oral, TID Myrbetriq 50 mg oral tablet, extended release, 50 mg= 1 tab(s), Oral, Daily, 11 refills Strattera 80 mg oral capsule, 80 mg= 1 cap(s), Oral, qAM Suboxone 8 mg-2 mg sublingual film, SubLingual, Daily Valtrex 1 g Tab, 1 gm= 1 tab(s), Oral, Daily Zofran ODT 4 mg Tab-Dis, 4 mg= 1 tab(s), Oral, q8hr, Not taking Allergies Elavil (Rash) NSAIDs (Anaphylactic reaction) Pristiq (Rash) Topamax (Unknown) cephalexin (Unknown) erythromycin (Anaphylactic reaction) morphine (Unknown) sulfamethoxazole-trime thoprim (Unknown) Social History Alcohol - Denies Alcohol Use, 11/06/2016 Substance Abuse - Medium Risk, 08/06/2022 Current, Marijuana, IV drug use: No. Drug use interferes with work/home: Yes. Household substance abuse concerns: No., 08/06/2022 Tobacco - High Risk, 11/06/2016 Former smoker, quit more than 30 days ago Tobacco Use:. Smokeless tobacco user within last 30 days Smokeless Tobacco Use:. Cigarettes, Vaping, Started age 21.0 Years. Yes, 11/11/2022 Family History Arthritis: Mother. Asthma: Mother. COPD: Mother. Cervical cancer: Grandparent. Diabetes mellitus type 1: Mother. Diabetes mellitus type 2: Father. Heart disease: Mother and Brother. Hypertension: Mother. Osteoporosis: Mother. Uterine cancer: Grandparent. Immunizations Vaccine Date Status Comments influenza virus vaccine, inactivated - Not Given Patient Refuses SARS-CoV-2 (COVID-19) mRNA-1273 vaccine 09/13/2020 Recorded SARS-CoV-2 (COVID-19) mRNA-1273 vaccine 08/16/2020 Recorded SARS-CoV-2 (COVID-19) mRNA-1273 vaccine 2020 Recorded pt has had 2 shots [facility] Comment on above: Result Comment: Elec tronically Signed By: Miguelina ROQUE MD\.br\Date and Time Signed: 12/16/22 16:32 EDT Ambulatory Visit Summaryon 0 12-11-2022 Ambulatory Visit Summary TIARA PARIKH :1985 Visit Date:12/11/2022 Ambulatory Visit Instructions Your Diagnosis Abscess of right breast unrelated to or Your Care Team Attending Physician - Miguelina ROQUE MD Primary Care Physician - Sherin House MD This Is Your Medications List Contact prescribing physician if questions or concerns aripiprazole (Abilify 20 mg oral tablet) atomoxetine (Strattera 80 mg oral capsule) buprenorphine-naloxone (Suboxone 8 mg-2 mg sublingual film) gabapentin (gabapentin 800 mg Tab) mirabegron (Myrbetriq 50 mg oral tablet, extended release) ondansetron (Zofran ODT 4 mg Tab-Dis) valacyclovir (Valtrex 1 g Tab) Procedures Performed Abdominal hysterectomy, Appendectomy, section, Cholecystectomy, Colonoscopy, EGD - Esophagogastroduodenos copy, Essure., Laparoscopy, Ovarian cystectomy. Discharge Vitals Heart Rate (Peripheral) 72 Respiratory Rate 16 Blood Pressure 126/84 Height 170 cm Height 67 in Weight 114 kg Weight 250.8 lb BMI 39.45 What to do next Scheduled Follow-Up Appointments Thursday 4:00 PM EDT With: Miguelina ROQUE MD Where: General Surgery Nill/[facility] Lab Reportson 11-17-2022 Lab Reports [id number] 0CD:127 [facility] General Surgery Office/Clini c Noteon 11-16-2022 General Surgery Office/Clinic Note Chief Complaint breast mass HPI Staff 36 year old female presents on consultation from [facility] for painful right breast mass. Patient noted mass greater than one year. Reports increase in pain over the past one month. Denies nipple discharge. Mammogram completed yesterday cat 5. Prescribed Augmentin 875mg BID x 10 days for possible abscess. History of Present Illness 36 yo female with h/o bipolar disorder, Crohn's disease, h/o heroin abuse, on Suboxone, chronic hepatitis C, eczema, referred from [facility] ED for right breast pain, cellulitis, and possible abscess verses subareolar mass; patient has 1 year h/o intermittent breast pain and intermittent drainage near nipple, at site of old piercing; patient had excision of this tract by Dr Vuong in the past, had no more swelling until several weeks ago; patient prescribed Augmentin by ED, had been on Clindamycin from PCP; US done in ED revealed 2 cm subareolar abscess verses mass, read as category 5; patient denies nipple discharge; no fmhx of breast or ovarian cancer; vapes nicotine containing substances daily. Review of Systems PHQ Score Initial Depression Screen Score: 0 ROS - Provider Constitutional: no fever, no sweats, no weight loss. Eyes: yes glasses, no blurred vision, no visual loss. ENMT: no dentures, no hoarseness, no swallowing difficulties, no hearing loss, no ear infection(s), no nose bleeds. Cardiovascular: normal blood pressure, no chest pain, regular heartbeat, no heart murmur. Respiratory: no shortness of breath, no cough, no asthma, no wheezing. Gastrointestinal: no nausea, no vomiting, no diarrhea, no constipation, no blood in stool, no change in bowel habits, no abdominal pain, no hepatitis. Genitourinary: no kidney stones, no urine infection, no dysuria. Musculoskeletal: no pain, no weakness. Skin: no changing moles, no rash, yes skin lumps. Neurologic: no seizures, no epilepsy, no headache. Psychiatric: no emotional or psychiatric problem. Heme/Lymph: no bleeding problems, no anemia, no blood clots, no transfusions. Allergy/Immunologic: no swollen lymph nodes/glands, no IV drug abuse. Other: Additional ROS info: Except as noted in the above Review of Systems and in the History of Present Illness, all other systems have been reviewed and are negative or noncontributory. Physical Exam Vitals & Measurements HR: 76(Peripheral) RR: 16 BP: 126/78 HT: 67 in HT: 170 cm WT: 114.9 kg WT: 252.78 lb BMI: 39.76 HEENT: normal conjunctiva, sclera clear, no scleral icterus, EOM intact, PERRLA. oral mucosa moist without lesions Neck: trachea midline , no mass, symmetric, no thyromegaly or nodules. no adenopathy Respiratory: lungs CTA, respirations non labored. Cardiovascular: regular rate and rhythm, no murmur, , no pedal edema or varicosities. Chest (Breasts):right breast with cellulitis/edema; tender around areola, no open areas or drainage; fluctuance superior and lateral to areola Gastrointestinal: soft, non distended, no tenderness, no masses, no palpable hernias, diastasis recti no, no hepatosplenomegaly. normal bs Lymphatic: no cervical adenopathy, no axillary adenopathy, no supraclavicular adenopathy. Musculoskeletal: normalgait, digits and nails without infection, nodes, cyanosis, clubbing. Skin: no rashes, no lesions, no ulcers, no subcutaneous nodules, induration. Psychiatric/Neuro: oriented to time, place, person, judgement normal, affect appropriate for age, insight intact, no focal deficits. Tests: labs reviewed, x-rays reviewed, review of old records completed, Discussed surgical options, risks, and possible complications with patient. Assessment/Plan 1. Abscess of right breast unrelated to or , (N61.1: Abscess of the breast and nipple)Breast abscess abscess aspirated under local anesthesia, sterile conditions; 5 ml of thick, foul-smelling puss obtained, sent for culture; patient tolerated well, sterile gauze applied; continue antibiotics; follow up in 3 days for reevaluation, call sooner if problems/questions. Follow-up No qualifying data available Problem List/Past Medical History Ongoing Abscess of right breast unrelated to or Anemia Bipolar disorder BMI 39.0-39.9,adult Cannabis abuse Chronic hepatitis C Crohn's disease Depression Eczema Heroin abuse Herpes Insomnia Left inguinal hernia Lumbar radiculopathy Mixed incontinence Morbid obesity Overactive bladder Polysubstance abuse Schizoaffective schizophrenia Sleep walking disorder Smoker Vapes nicotine containing substance Historical Crohn disease Drug abuse Flank pain Frequency of urination Urinary frequency Procedure/Surgical History Abdominal hysterectomy, Appendectomy, section, Cholecystectomy, Colonoscopy, EGD - Esophagogastroduodenos copy, Essure., Laparoscopy, Ovarian cystectomy. Medications Abilify 20 mg oral tablet, 20 mg= 1 tab(s), Oral, Daily gabapentin 8 (more content not included)... [facility] Comment on above: Result Comment: Elec tronically Signed By: MYA TEMPLE, Miguelina Swanson\.br\Date and Time Signed: 11/16/22 21:32 EDT Ambulatory Visit Summaryon 0 11-14-2022 Ambulatory Visit Summary TIARA PARIKH :1985 Visit Date:11/14/2022 Ambulatory Visit Instructions Your Care Team Attending Physician - Miguelina ROQUE MD Primary Care Physician - Sherin House MD This Is Your Medications List Contact prescribing physician if questions or concerns aripiprazole (Abilify 20 mg oral tablet) atomoxetine (Strattera 80 mg oral capsule) buprenorphine-naloxone (Suboxone 8 mg-2 mg sublingual film) gabapentin (gabapentin 800 mg Tab) mirabegron (Myrbetriq 50 mg oral tablet, extended release) ondansetron (Zofran ODT 4 mg Tab-Dis) valacyclovir (Valtrex 1 g Tab) Procedures Performed Abdominal hysterectomy, Appendectomy, section, Cholecystectomy, Colonoscopy, EGD - Esophagogastroduodenos copy, Essure., Laparoscopy, Ovarian cystectomy. Medications What How Much When Instructions Unchanged aripiprazole (Abilify 20 mg oral tablet) 1 Tablets By Mouth Every day Contact prescribing physician if questions or concerns Unchanged atomoxetine (Strattera 80 mg oral capsule) 1 Capsules By Mouth Once a day (in the morning) Contact prescribing physician if questions or concerns Unchanged buprenorphine-naloxone (Suboxone 8 mg-2 mg sublingual film) Sublingual Every day Contact prescribing physician if questions or concerns Unchanged gabapentin (gabapentin 800 mg Tab) By Mouth 3 times a day Contact prescribing physician if questions or concerns Unchanged mirabegron (Myrbetriq 50 mg oral tablet, extended release) 1 Tablets By Mouth Every day Contact prescribing physician if questions or concerns Unchanged ondansetron (Zofran ODT 4 mg Tab-Dis) 1 Tablets By Mouth Every 8 hours Contact prescribing physician if questions or concerns Unchanged valacyclovir (Valtrex 1 g Tab) 1 Tablets By Mouth Every day Contact prescribing physician if questions or concerns Allergies Elavil (Rash) NSAIDs (Anaphylactic reaction) Pristiq (Rash) Topamax (Unknown) cephalexin (Unknown) erythromycin (Anaphylactic reaction) morphine (Unknown) sulfamethoxazole-trime thoprim (Unknown) Problems Ongoing - Any problem that you are currently receiving treatment for. Anemia Bipolar disorder BMI 39.0-39.9,adult Cannabis abuse Chronic hepatitis C Crohn's disease Depression Eczema Heroin abuse Herpes Insomnia Left inguinal hernia Lumbar radiculopathy Mixed incontinence Morbid obesity Overactive bladder Polysubstance abuse Schizoaffective schizophrenia Sleep walking disorder Smoker Vapes nicotine containing substance Historical - Any problem that you are no longer receiving treatment for. Crohn disease Drug abuse Flank pain Frequency of urination Urinary frequency [facility] General Surgery Office/Clini c Noteon 11-14-2022 General Surgery Office/Clinic Note Chief Complaint f/u breast abscess HPI Staff 3 day follow up post in-office I/D right breast abscess. Continues on ATB. States redness, swelling and pain have greatly improved. History of Present Illness 3 days s/p aspiration of right breast subareolar abscess; doing well, pain and cellulitis resolved; small amount of serous drainage from nipple when squeezed; completing course of antibiotics; cx with enterococcus faecalis. Review of Systems ROS - Provider Constitutional: no fever, no sweats, no weight loss. Eyes: no glasses, no blurred vision, no visual loss. ENMT: no dentures, no hoarseness, no swallowing difficulties, no hearing loss, no ear infection(s), no nose bleeds. Cardiovascular: normal blood pressure, no chest pain, regular heartbeat, no heart murmur. Respiratory: no shortness of breath, no cough, no asthma, no wheezing. Gastrointestinal: no nausea, no vomiting, no diarrhea, no constipation, no blood in stool, no change in bowel habits, no abdominal pain, no hepatitis. Genitourinary: no kidney stones, no urine infection, no dysuria. Musculoskeletal: no pain, no weakness. Skin: no changing moles, no rash, no skin lumps. Neurologic: no seizures, no epilepsy, no headache. Psychiatric: no emotional or psychiatric problem. Heme/Lymph: no bleeding problems, no anemia, no blood clots, no transfusions. Allergy/Immunologic: no swollen lymph nodes/glands, no IV drug abuse. Other: Additional ROS info: Except as noted in the above Review of Systems and in the History of Present Illness, all other systems have been reviewed and are negative or noncontributory. Physical Exam skin: right breast tenderness and cellulitis have resolved; minimal induration subareolar area, no drainage. Assessment/Plan 1. Abscess of right breast unrelated to or (N61.1: Abscess of the breast and nipple) doing well; recommend repeat mammogram/US in 3 months; call with problems/questions. Follow-up No qualifying data available Problem List/Past Medical History Ongoing Abscess of right breast unrelated to or Anemia Bipolar disorder BMI 39.0-39.9,adult Cannabis abuse Chronic hepatitis C Crohn's disease Depression Eczema Heroin abuse Herpes Insomnia Left inguinal hernia Lumbar radiculopathy Mixed incontinence Morbid obesity Overactive bladder Polysubstance abuse Schizoaffective schizophrenia Sleep walking disorder Smoker Vapes nicotine containing substance Historical Crohn disease Drug abuse Flank pain Frequency of urination Urinary frequency Procedure/Surgical History Abdominal hysterectomy, Appendectomy, section, Cholecystectomy, Colonoscopy, EGD - Esophagogastroduodenos copy, Essure., Laparoscopy, Ovarian cystectomy. Medications Abilify 20 mg oral tablet, 20 mg= 1 tab(s), Oral, Daily gabapentin 800 mg Tab, Oral, TID Myrbetriq 50 mg oral tablet, extended release, 50 mg= 1 tab(s), Oral, Daily, 11 refills Strattera 80 mg oral capsule, 80 mg= 1 cap(s), Oral, qAM Suboxone 8 mg-2 mg sublingual film, SubLingual, Daily Valtrex 1 g Tab, 1 gm= 1 tab(s), Oral, Daily Zofran ODT 4 mg Tab-Dis, 4 mg= 1 tab(s), Oral, q8hr, Not taking Allergies Elavil (Rash) NSAIDs (Anaphylactic reaction) Pristiq (Rash) Topamax (Unknown) cephalexin (Unknown) erythromycin (Anaphylactic reaction) morphine (Unknown) sulfamethoxazole-trime thoprim (Unknown) Social History Alcohol - Denies Alcohol Use, 11/06/2016 Substance Abuse - Medium Risk, 08/06/2022 Current, Marijuana, IV drug use: No. Drug use interferes with work/home: Yes. Household substance abuse concerns: No., 08/06/2022 Tobacco - High Risk, 11/06/2016 Former smoker, quit more than 30 days ago Tobacco Use:. Smokeless tobacco user within last 30 days Smokeless Tobacco Use:. Cigarettes, Vaping, Started age 21.0 Years. Yes, 11/11/2022 Family History Arthritis: Mother. Asthma: Mother. COPD: Mother. Cervical cancer: Grandparent. Diabetes mellitus type 1: Mother. Diabetes mellitus type 2: Father. Heart disease: Mother and Brother. Hypertension: Mother. Osteoporosis: Mother. Uterine cancer: Grandparent. Immunizations Vaccine Date Status Comments influenza virus vaccine, inactivated - Not Given Patient Refuses SARS-CoV-2 (COVID-19) mRNA-1273 vaccine 09/13/2020 Recorded SARS-CoV-2 (COVID-19) mRNA-1273 vaccine 08/16/2020 Recorded SARS-CoV-2 (COVID-19) mRNA-1273 vaccine 2020 Recorded pt has had 2 shots [facility] Comment on above: Result Comment: Elec tronically Signed By: MYA TEMPLE, Miguelina Solis\Date and Time Signed: 11/14/22 14:56 EDT Lab Reportson 11-14-2022 Lab Reports [id number]:127 [facility] Lab Reports [id number] 0CD:127 [facility] Ambulatory Visit Summaryon 0 11-11-2022 Ambulatory Visit Summary TIARA PARIKH :1985 Visit Date:11/11/2022 Ambulatory Visit Instructions Your Care Team Attending Physician - Miguelina ROQUE MD Primary Care Physician - Sherin House MD This Is Your Medications List Contact prescribing physician if questions or concerns aripiprazole (Abilify 20 mg oral tablet) atomoxetine (Strattera 80 mg oral capsule) buprenorphine-naloxone (Suboxone 8 mg-2 mg sublingual film) gabapentin (gabapentin 800 mg Tab) mirabegron (Myrbetriq 50 mg oral tablet, extended release) ondansetron (Zofran ODT 4 mg Tab-Dis) valacyclovir (Valtrex 1 g Tab) Procedures Performed Abdominal hysterectomy, Appendectomy, section, Cholecystectomy, Colonoscopy, EGD - Esophagogastroduodenos copy, Essure., Laparoscopy, Ovarian cystectomy. Discharge Vitals Heart Rate (Peripheral) 76 Respiratory Rate 16 Blood Pressure 126/78 Height 170 cm Height 67 in Weight 114.9 kg Weight 252.78 lb BMI 39.76 What to do next Scheduled Follow-Up Appointments Thursday 2:40 PM EDT With: Miguelina ROQUE MD Where: General Surgery Mya/[facility] ED Note-Physicianon 11-12-19 23 ED Note-Physician [id number]:127 [facility] RAD - Ultrasound Reporton RAD - Ultrasound Report [id number]:127 [facility] Physician Referralon 023 Physician Referral [id number] 0CD:127 [facility] Formson 08-07-2022 Forms [id number]:127 [facility] Ambulatory Visit Summaryon 0 08-06-2022 Ambulatory Visit Summary TIARA PARIKH :1985 Visit Date:08/06/2022 Ambulatory Visit Instructions Your Care Team Attending Physician - MYA TEMPLE, Miguelina Swanson Primary Care Physician - Sherin House MD Referring Physician - Sherin House MD This Is Your Medications List aripiprazole (Abilify 20 mg oral tablet) atomoxetine (Strattera 80 mg oral capsule) buprenorphine-naloxone (Suboxone 8 mg-2 mg sublingual film) gabapentin (gabapentin 800 mg Tab) mirabegron (Myrbetriq 50 mg oral tablet, extended release) ondansetron (Zofran ODT 4 mg Tab-Dis) valacyclovir (Valtrex 1 g Tab) Procedures Performed Abdominal hysterectomy, Appendectomy, section, Cholecystectomy, Colonoscopy, EGD - Esophagogastroduodenos copy, Essure., Laparoscopy, Ovarian cystectomy. Discharge Vitals Heart Rate (Peripheral) 70 Respiratory Rate 16 Blood Pressure 122/84 Height 170 cm Height 67 in Weight 118 kg Weight 259.6 lb BMI 40.83 Medications What How Much When Instructions Unchanged aripiprazole (Abilify 20 mg oral tablet) 1 Tablets By Mouth Every day Unchanged atomoxetine (Strattera 80 mg oral capsule) 1 Capsules By Mouth Once a day (in the morning) Unchanged buprenorphine-naloxone (Suboxone 8 mg-2 mg sublingual film) Sublingual Every day Unchanged gabapentin (gabapentin 800 mg Tab) By Mouth 3 times a day Unchanged mirabegron (Myrbetriq 50 mg oral tablet, extended release) 1 Tablets By Mouth Every day Unchanged ondansetron (Zofran ODT 4 mg Tab-Dis) 1 Tablets By Mouth Every 8 hours Unchanged valacyclovir (Valtrex 1 g Tab) 1 Tablets By Mouth Every day Medications and Immunizations Administered Not Given influenza virus vaccine, inactivated, Patient Refuses Allergies Elavil (Rash) NSAIDs (Anaphylactic reaction) Pristiq (Rash) Topamax (Unknown) cephalexin (Unknown) erythromycin (Anaphylactic reaction) morphine (Unknown) sulfamethoxazole-trime thoprim (Unknown) Problems Ongoing - Any problem that you are currently receiving treatment for. Anemia Bipolar disorder BMI 40.0-44.9, adult Cannabis abuse Chronic hepatitis C Crohn's disease Depression Eczema Heroin abuse Herpes Insomnia Lumbar radiculopathy Mixed incontinence Overactive bladder Polysubstance abuse Schizoaffective schizophrenia Sleep walking disorder Smoker Historical - Any problem that you are no longer receiving treatment for. Crohn disease Drug abuse Flank pain Frequency of urination Urinary frequency [facility] Letter[facility] 07-18-2022 Provider Letter July 18, 2022 TIARA PARIKH R [address] [place] [address] [place] [address] TIARA PARIKH 1985 Dear Tiara , We have been trying to reach you with no success. It is important that you return our call regarding your referral from Dr. House upon receiving this letter. Also, at the time of your call, please provide us with your current information. Thank you for your prompt attention to this matter. Sincerely, General Surgery Dr. Mya Gray/Colton [phone] [facility] RAD - CT Reporton 07-17-2022 RAD - CT Report [id number]:[id number] [facility] Physician Referralon 023 Physician Referral [id number] 0CD:[address] [facility] [address] ABD/PELV W CONon 07-10-[address] ABD/PELV W CON TITLE: CT ABD/PELV W CON COMPARISON: None. TECHNIQUE: 5 mm contiguous helical sections were obtained of the abdomen and pelvis after the IV administration of . Sagittal and coronal reformations created . Automated exposure control was utilized. CLINICAL HISTORY: Left lower quadrant pain FINDINGS: The lung bases are clear. The patient's post cholecystectomy. The liver and spleen are mildly enlarged. The stomach, pancreas, kidneys and adrenal glands appear normal. There is no biliary ductal dilatation. There is a fat-containing left inguinal hernia and small umbilical hernia. The terminal ileum is unremarkable. There are surgical clips at the cecum. The uterus is not visualized. The adnexa appear normal The distal ureters and urinary bladder appear unremarkable. There is no ascites or concerning adenopathy. There is no skeletal abnormality IMPRESSION: FAT-CONTAINING LEFT INGUINAL HERNIA MILD HEPATOSPLENOMEGALY NO OBSTRUCTION OR INFLAMMATION Electronically authenticated by: MALCOM DUMONT Date: 2022-07-09 11:03 Normal [facility] US PELVIS AND TRANSVAGon US PELVIS AND TRANSVAG EXAMINATION: US PELVIS AND TRANSVAG HISTORY: Left lower quadrant pain for several months COMPARISON: Ultrasound pelvis 04/08/2021 TECHNIQUE: Transabdominal and transvaginal sonographic examination. FINDINGS: UTERUS: Hysterectomy. RIGHT OVARY: Normal size and appearance. Duplex Doppler demonstrates normal waveform and flow; resistive index 0.4. Ovary size: 2.5 x 2.0 x 2.1 cm LEFT OVARY: Normal size and appearance. Duplex Doppler demonstrates normal waveform and flow; resistive index 0.6. Ovary size: 2.4 x 2.4 x 1.6 cm CUL-DE-SAC: Unremarkable. No significant free fluid. BLADDER: Unremarkable. OTHER: Corresponding to patient's area of tenderness and lump in the pubic region is a 2.5 x 0.9 x 0.6 cm benign-appearing lymph node. IMPRESSION: 1. Prior hysterectomy. Normal appearance of both ovaries. 2. Patient's area of tenderness and lump appear to be secondary to a slightly prominent, but otherwise benign-appearing lymph node. Electronically authenticated by: DARRICK GIBBS Date: 2022-07-03 12:02 Normal [facility] CHLAMYDIA/GONOCOCCUS JOHANA (SW AB/URINE/PAPon 05-19-2022 Chlamydia trachomatis, JOHANA Negative Normal Negative [facility] Comment on above: Performed By: #### C T/NGNA #### [facility] [address] [place] [address] Dr. Gunner Dwyer Neisseria gonorrhoeae, JOHANA Negative Normal Negative [facility] Comment on above: Performed By: #### C T/NGNA #### [facility] [address] [place] [address] Dr. Gunner Dwyer VAGINITIS/VAGINOSIS DNA PROB Yuri 05-17-2022 Violeta species Negative Normal Negative [facility] Comment on above: Performed By: #### G STAIN #### [facility] [address] [place] [address] Dr. Gunner Dwyer Gardnerella vaginalis Negative Normal Negative [facility] Comment on above: Performed By: #### G STAIN #### [facility] [address] [place] [address] Dr. Gunner Dwyer Trichomonas vaginalis Negative Normal Negative [facility] Comment on above: Performed By: #### G STAIN #### [facility] [address] [address] [address] Gunner Dwyer Provider Letteron 04-23-2022 Provider Letter April 23, 2022 TIARA PARIKH R [address] [place] [address] TIARA PARIKH 1985 Dear Tiara, We have been trying to reach you with no success. It is important that you return our call regarding scheduling a follow up appointment upon receiving this letter. Also, at the time of your call, please provide us with your current contact information. Thank you for your prompt attention to this matter. Sincerely, [facility] [address], [place] [address] [facility] CBC AUTO DIFFon 04-03-2022 BASO # 0.0 103/ul Normal 0.0-0.1 [facility] Comment on above: Performed By: #### E STRONE #### [facility] [address] [place] [address] Dr. Gunner Dwyer Basophils/100 WBC (Bld) 0.2 % Normal 0.2-2.0 [facility] Comment on above: Performed By: #### E STRONE #### [facility] [address] [place] [address] Dr. Gunner Dwyer EO # 0.0 103/ul Normal 0.0-0.7 [facility] Comment on above: Performed By: #### E STRONE #### [facility] [address] [place] [address] Dr. Gunner Dwyer Eosinophils/100 WBC (Bld) 0.4 % Critically low 0.9-7.0 [facility] Comment on above: Performed By: #### E STRONE #### [facility] [address] [place] [address] Dr. Gunner Dwyer Erythrocyte distribution width (RBC) [Ratio] 11.9 % Normal 11.0-15.0 [facility] Comment on above: Performed By: #### E STRONE #### [facility] [address] [place] [address] Dr. Gunner Dwyer Hematocrit (Bld) [Volume fraction] 39.3 % Normal 36.0-48.0 [facility] Comment on above: Performed By: #### E STRONE #### [facility] [address] [place] [address] Dr. Gunner Dwyer Hemoglobin (Bld) [Mass/Vol] 13.3 g/dL Normal 12.0-16.0 [facility] Comment on above: Performed By: #### E STRONE #### [facility] [address] [place] [address] Dr. Gunner Dwyer IG # 0.01 10e3/ul Normal 0.00-0.03 [facility] Comment on above: Performed By: #### E STRONE #### [facility] [address] [place] [address] Dr. Gunner Dwyer IG % 0.2 % Normal 0.0-0.5 [facility] Comment on above: Performed By: #### E STRONE #### [facility] [address] [place] [address] Dr. Gunner Dwyer LYMPH # 1.3 103/ul Normal 1.2-3.8 [facility] Comment on above: Performed By: #### E STRONE #### [facility] [address] [place] [address] Dr. Gunner Dwyer Lymphocytes/100 WBC (Bld) 26.4 % Normal 20.5-60.0 [facility] Comment on above: Performed By: #### E STRONE #### [facility] [address] [place] [address] Dr. Gunner Dwyer MANUAL DIFF REQ NO Normal [facility] Comment on above: Performed By: #### E STRONE #### [facility] [address] [place] [address] Dr. Gunner Dwyer MCH (RBC) [Entitic mass] 30.6 pg Normal 26.7-34.0 [facility] Comment on above: Performed By: #### E STRONE #### [facility] [address] [place] [address] Dr. Gunner Dwyer MCHC (RBC) [Mass/Vol] 33.8 g/dL Normal 29.9-35.2 [facility] Comment on above: Performed By: #### E STRONE #### [facility] [address] [place] [address] Dr. Gunner Dwyer MCV (RBC) [Entitic vol] 90.3 fL Normal 81.0-99.0 [facility] Comment on above: Performed By: #### E STRONE #### [facility] [address] [place] [address] Dr. Gunner Dwyer MONO # 0.4 103/ul Normal 0.3-0.8 [facility] Comment on above: Performed By: #### E STRONE #### [facility] [address] [place] [address] Dr. Gunner Dwyer Monocytes/100 WBC (Bld) 7.4 % Normal 1.7-12.0 [facility] Comment on above: Performed By: #### E STRONE #### [facility] [address] [place] [address] Dr. Gunner Dwyer NEUT # 3.1 103/ul Normal 1.4-6.5 [facility] Comment on above: Performed By: #### E STRONE #### [facility] [address] [place] [address] Dr. Gunner Dwyer Neutrophils/100 WBC (Bld) 65.4 % Normal 43.0-75.0 [facility] Comment on above: Performed By: #### E STRONE #### [facility] [address] [place] [address] Dr. Gunner Dwyer Platelet mean volume (Bld) [Entitic vol] 10.7 fL Normal 9.5-13.5 [facility] Comment on above: Performed By: #### E STRONE #### [facility] [address] [place] [address] Dr. Gunner Dwyer PLT 125 103/ul Critically low 150-450 [facility] Comment on above: Result Comment: SPEC IMEN REDRAWN FOR VERIFICATION--SLIDE REVIEWED FOR PLATELET CLUMPS/NONE SEEN Performed By: #### E STRONE #### [facility] [address] [place] [address] Dr. Gunner Dwyer RBC 4.35 106/ul Normal 4.20-5.40 [facility] Comment on above: Performed By: #### E STRONE #### [facility] [address] [place] [address] Dr. Gunner Dwyer WBC 4.7 103/ul Normal 4.0-11.0 [facility] Comment on above: Performed By: #### E STRONE #### [facility] [address] [place] [address] Dr. Gunner Dwyer Covid-19 PCR ([facility])on 03-20 SARS-CoV-2 (COVID-19) RNA JOAHNA+probe Ql (Unsp spec) Not detected Normal NOT DETECTED [facility] Comment on above: Result Comment: This test is not yet approved or cleared by the [place] FDA. When there are no FDA-approved or cleared tests available, and other criteria are met, FDA can make tests available under an emergency access mechanism called an Emergency Use Authorization (EUA). The EUA for this test is supported by the Hydrocr[employer] Operator of Health and Human Service's (HHS's) declaration that circumstances exist to justify the emergency use of in vitro diagnostics for the detection and/or diagnosis of the virus that causes COVID-19. This EUA will remain in effect (meaning this test can be used) for the duration of the COVID-19 declaration justifying emergency of IVDs, unless it is terminated or revoked by FDA (after which the test may no longer be used). When diagnostic testing is negative, the possibility of a false negative should be considered in the context of a patient's recent exposures and the presence of clinical signs and symptoms consistent with SARS-CoV-2. Performed By: #### T POAB #### [facility] [address] [place] [address] Dr. Gunner Dwyer DRUG SCREEN RAPID (URINE)on 03-24-2022 AMP Negative Normal NEGATIVE [facility] Comment on above: Performed By: #### G STAIN #### [facility] [address] [place] [address] Dr. Gunner Dwyer BAR Negative Normal NEGATIVE [facility] Comment on above: Performed By: #### G STAIN #### [facility] [address] [place] [address] Dr. Gunner Dwyer BUP Positive Abnormal NEGATIVE [facility] Comment on above: Performed By: #### G STAIN #### [facility] [address] [place] [address] Dr. Gunner Dwyer BZO Negative Normal NEGATIVE [facility] Comment on above: Performed By: #### G STAIN #### [facility] [address] [place] [address] Dr. Gunner Dwyer JOSEPH Negative Normal NEGATIVE [facility] Comment on above: Performed By: #### G STAIN #### [facility] [address] [place] [address] Dr. Gunner Dwyer CUT-OFFS SEE BELOW Normal [facility] Comment on above: Result Comment: AMP (Amphetamine): 500ng/mL, BAR (Barbituates): 200 ng/mL, BZO (Benzodiazepines): 150 ng/mL, BUP (Buprenorphine): 10 ng/mL, JOSEPH (Cocaine): 150 ng/mL, mAMP (Methamphetamine): 500 ng/mL, MTD (Methadone): 200 ng/mL, OPI (Opiates): 100 ng/mL, OXY (Oxycodone): 100 ng/mL, PCP (Phencyclidine): 25 ng/mL, PPX (Propoxyphene): 300 ng/mL, THC (Cannabinoids): 50 ng/mL, TCA (Trycyclic Antidepressants): 300 ng/mL Performed By: #### G STAIN #### [facility] [address] [place] [address] Dr. Gunner Dwyer DRUG CUT HEADER DRUG CLASS TEST SYST EM CUT-OFF CONCENTRATIONS ARE FOLLOWS: Normal [facility] Comment on above: Performed By: #### G STAIN #### [facility] [address] [place] [address] Dr. Gunner Dwyer mAMP Negative Normal NEGATIVE [facility] Comment on above: Performed By: #### G STAIN #### [facility] [address] [place] [address] Dr. Gunner Dwyer MTD Negative Normal NEGATIVE [facility] Comment on above: Performed By: #### G STAIN #### [facility] [address] [address] [address] Gunner Dwyer OPI Negative Normal NEGATIVE [facility] Comment on above: Performed By: #### G STAIN #### [facility] [address] [address] [address] Gunner Dwyer OXY Negative Normal NEGATIVE [facility] Comment on above: Performed By: #### G STAIN #### [facility] [address] [address] [address] Gunner Dwyer PCP Negative Normal NEGATIVE [facility] Comment on above: Performed By: #### G STAIN #### [facility] [address] [address] [address] Gunner Dwyer PPX Negative Normal NEGATIVE [facility] Comment on above: Performed By: #### G STAIN #### [facility] [address] [place] [address] Dr. Gunner Dwyer TCA Negative Normal NEGATIVE [facility] Comment on above: Performed By: #### G STAIN #### [facility] [address] [address] [address] Gunner Dwyer THC Positive Abnormal NEGATIVE [facility] Comment on above: Performed By: #### G STAIN #### [facility] [address] [address] [address] Gunner Dwyer CORTISOL FREE, SERUMon 03-08 Cortisol, Free Dialysis, LCMS 0.470 ug/dL Normal [facility] Comment on above: Result Comment: Thes e tests were developed and their performance characteristics determined by [facility]. They have not been cleared or approved by the Food and Drug Administration. Reference Range: 8 AM 0.10 - 1.20 4 PM 0.042 - 0.872 Performed By: #### C T/NGNA #### [facility] [address] [place] [address] Dr. Gunner Dwyer SEROTONINon 03-04-2022 Serotonin, Serum 33 ng/mL Normal 31-207 [facility] Comment on above: Performed By: #### E STRONE #### [facility] [address] [place] [address] Dr. Gunner Dwyer TESTOSTERONE, FREE,DIRECT, T OTALon 03-02-2022 Free Testosterone(Direct) 0.5 pg/mL Normal 0.0-4.2 [facility] Comment on above: Result Comment: Perf ormed at: BN Performed By: #### C T/NGNA #### [facility] [address] [place] [address] Dr. Gunner Dwyer Testosterone [Mass/Vol] 18 ng/dL Normal 8-60 [facility] Comment on above: Result Comment: Perf ormed at: CB Performed By: #### C T/NGNA #### [facility] [address] [place] [address] Dr. Gunner Dwyer ESTRONEon 02-28-2022 Estrone, Serum 39 pg/mL Normal 27-231 [facility] Comment on above: Result Comment: Rang e Adult (Premenopausal) 27 - 231 Menstrual Cycle (1-10 days) 19 - 149 Menstrual Cycle (11-20 days) 32 - 176 Menstrual Cycle (21-30 days) 37 - 200 Performed By: #### E STRONE #### [facility] [address] [place] [address] Dr. Gunner Dwyer REVERSE T3on 02-28-2022 Reverse T3, Serum 32.0 ng/dL Critically high 9.2-24.1 [facility] Comment on above: Result Comment: This test was developed and its performance characteristics determined by [facility]. It has not been cleared or approved by the Food and Drug Administration. Performed By: #### G STAIN #### [facility] [address] [place] [address] Dr. Gunner Dwyer VIT D 1 25 DIHYDROXYon 02-28 Calcitriol(1,25 di-OH Vit D) 26.1 pg/mL Normal 24.8-81.5 [facility] Comment on above: Performed By: #### E STRONE #### [facility] [address] [place] [address] Dr. Gunner Dwyer THYROGLOBULIN AB AND THYROGL OBULINon 02-27-2022 Thyroglobulin Antibody <1.0 Normal 0.0-0.9 [facility] Comment on above: Result Comment: Thyr oglobulin Antibody measured by Rohini Bobo Methodology Performed By: #### C T/NGNA #### [facility] [address] [place] [address] Dr. Gunner Dwyer Thyroglobulin by REJI 2.7 ng/mL Normal 1.5-38.5 [facility] Comment on above: Result Comment: Acco rding to the National Academy of Clinical Biochemistry, the reference interval for Thyroglobulin (TG) should be related to euthyroid patients and not for patients who underwent thyroidectomy. TG reference intervals for these patients depend on the residual mass of the thyroid tissue left after surgery. Establishing a post-operative baseline is recommended. The assay limit of quantitation is 0.1 ng/mL . Thyroglobulin measured by Rohini Yulan Immunometric Assay Performed By: #### C T/NGNA #### [facility] [address] [place] [address] Dr. Gunner Dwyer C-PEPTIDE, SERUMon 2 C-Peptide, Serum 3.7 ng/mL Normal 1.1-4.4 [facility] Comment on above: Result Comment: C-Pe ptide reference interval is for fasting patients. Performed By: #### C T/NGNA #### [facility] [address] [place] [address] Dr. Gunner Dwyer DHEA-SULFATEon 02-26-2022 DHEA-Sulfate 43.9 ug/dL Critically low 57.3-279.2 [facility] Comment on above: Performed By: #### C T/NGNA #### [facility] [address] [place] [address] Dr. Gunner Dwyer ESTRADIOLon 02-26-2022 Estradiol 86.3 pg/mL Normal [facility] Comment on above: Result Comment: Adul t Female: Follicular phase 12.5 - 166.0 Ovulation phase 85.8 - 498.0 Luteal phase 43.8 - 211.0 Postmenopausal <6.0 - 54.7 1st trimester 215.0 - >4300.0 Paolo ECLIA methodology Performed By: #### E PAWAN #### [facility] [address] [place] [address] Dr. Gunner Dwyer INSULINon 02-26-2022 Insulin 17.9 uIU/mL Normal 2.6-24.9 [facility] Comment on above: Performed By: #### T POAB #### [facility] [address] [address] [address] Gunner Dwyer PROGESTERONEon 02-26-2022 Progesterone 0.9 ng/mL Normal [facility] Comment on above: Result Comment: Foll icular phase 0.1 - 0.9 Luteal phase 1.8 - 23.9 Ovulation phase 0.1 - 12.0 First trimester 11.0 - 44.3 Second trimester 25.4 - 83.3 Third trimester 58.7 - 214.0 Postmenopausal 0.0 - 0.1 Performed By: #### E STRONE #### [facility] [address] [place] [address] Dr. Gunner Dwyer SEX HORMONE-BINDING GLOBULIN on 02-26-2022 Sex Horm Binding Glob, Serum 81.9 nmol/L Normal 24.6-122.0 [facility] Comment on above: Performed By: #### C T/NGNA #### [facility] [address] [address] [address] Gunner Dwyer T3, TOTAL (TRIIODOTHYRONINE) on 02-26-2022 T3, TOTAL 196 ng/dL Critically high 71-180 [facility] Comment on above: Performed By: #### T POAB #### [facility] [address] [address] [address] Gunner Dwyer THYROID PEROXIDASE ABon 11-0 Thyroid Peroxidase (TPO) Ab 31 IU/mL Normal 0-34 [facility] Comment on above: Performed By: #### T POAB #### [facility] [address] [address] [address] Gunner Dwyer FERRITINon 02-25-2022 Ferritin [Mass/Vol] 103.0 ng/mL Normal 6.2-137.0 [facility] Comment on above: Performed By: #### C T/NGNA #### [facility] [address] [place] [address] Dr. Gunner Dwyer FREE T3on 02-25-2022 FREE T3 2.95 pg/mlL Normal 2.18-3.98 [facility] Comment on above: Performed By: #### G YAMILA, FT3, T4, TSH #### [facility] [address] [place] [address] Dr. Gunner Dwyer FREE T4on 02-25-2022 Free T4 [Mass/Vol] 1.15 ng/dL Normal 0.76-1.[address] [facility] Comment on above: Performed By: #### C T/NGNA #### [facility] [address] [place] [address] Dr. Gunner Dwyer GLUCOSE BLOODon 02-25-2022 Glucose [Mass/Vol] 100 mg/dL Normal 74-[address] [facility] Comment on above: Performed By: #### G YAMILA, FT3, T4, TSH #### [facility] [address] [place] [address] Dr. Gunner Dwyer GLYCOHEMOGLOBIN A1Con 2021 ADA RECOMMENDATION SEE BELOW Normal [facility] Comment on above: Result Comment: ADA RECOMMENDED LIMIT 4.0 - 6.0 ADA THERAPEUTIC TARGET < 7.0 ACTION SUGGESTED > 7.0 Performed By: #### A 1C #### [facility] [address] [place] [address] Dr. Gunner Dwyer Glucose [Mass/Vol] 105 mg/dL Normal [facility] Comment on above: Performed By: #### A 1C #### [facility] [address] [place] [address] Dr. Gunner Dwyer HbA1c (Bld) [Mass fraction] 5.3 % Normal 4.5-6.2 [facility] Comment on above: Performed By: #### A 1C #### [facility] [address] [place] [address] Dr. Gunner Dwyer T4on 02-25-2022 T4 [Mass/Vol] 13.60 ug/dL Normal 4.80-13.90 [facility] Comment on above: Performed By: #### G YAMILA, FT3, T4, TSH #### [facility] [address] [place], [place] [id number] Dr. Gunner Dwyer TSHon 02-25-2022 TSH 0.759 uIU/mL Normal 0.358-3.740 [facility] Comment on above: Performed By: #### G YAMILA, FT3, T4, TSH #### [facility] [address] [place] [address] Dr. Gunner Dwyer CULTURE OTHERon 02-08-2022 CULTURE OTHER Culture Observations : NORMAL SKIN TYSON ALSO SEEN. Isolate 1 Acinetobacter ursingii Light growth of ORGANISM 1 Acinetobacter ursingii ANTIBIOTIC M.I.C RX STATUS Ampicillin/Sulbactam <=2 S F Ceftazidime 4 S F Ceftriaxone 16 I F Imipenem <=0.25 S F Gentamicin <=1 S F Tobramycin <=1 S F Ciprofloxacin <=0.25 S F Levofloxacin 0.5 S F Trimethoprim/Sulfameth oxazole <=20 S F Normal [facility] Comment on above: Performed By: #### E STRONE #### [facility] [address] [place] [address] Dr. Gunner Dwyer CULTURE ANAEROBICon 02-06-20 CULTURE ANAEROBIC Culture Observations : NO GROWTH OF ANAEROBES AT 72 HOURS. Normal [facility] Comment on above: Performed By: #### E STRONE #### [facility] [address] [place] [address] Dr. Gunner GONZALEZ STAINon 02-05-2022 DIPHTHEROIDS Normal [facility] Comment on above: Performed By: #### G STAIN #### [facility] [address] [place] [address] Dr. Gunner Dwyer EPITHELIALS RARE Normal [facility] Comment on above: Performed By: #### G STAIN #### [facility] [address] [place] [address] Dr. Gunner Dwyer FUNGAL ELEMENTS Normal [facility] Comment on above: Performed By: #### G STAIN #### [facility] [address] [place] [address] Dr. Gunner GONZALEZ NEG BACILLI RARE Normal [facility] Comment on above: Performed By: #### G STAIN #### [facility] [address] [address] [address] Gunner Dwyer GRAM NEG DIPPLOCOCCI MODERATE Normal [facility] Comment on above: Performed By: #### G STAIN #### [facility] [address] [place] [address] Dr. Gunner Dwyer GRAM POS BACILLI Normal [facility] Comment on above: Performed By: #### G STAIN #### [facility] [address] [place] [address] Dr. Gunner Dwyer GRAM POSITIVE COCCI FEW Normal [facility] Comment on above: Performed By: #### G STAIN #### [facility] [address] [place] [address] Dr. Gunner Dwyer GRAM STAIN SOURCE nipple discharge [facility] Comment on above: Performed By: #### G STAIN #### [facility] [address] [place] [address] Dr. Gunner Dwyer GS_DIPTH Normal [facility] Comment on above: Performed By: #### G STAIN #### [facility] [address] [place] [address] Dr. Gunner Dwyer WBC Normal [facility] Comment on above: Performed By: #### G STAIN #### [facility] [address] [place] [address] Dr. Gunner Dwyer INSULINon 01-31-2022 Insulin 8.5 uIU/mL Normal 2.6-24.9 [facility] Comment on above: Performed By: #### G STAIN #### [facility] [address] [place] [address] Dr. Gunner Dwyer CBC AUTO DIFFon 01-30-2022 BASO # 0.0 103/ul Normal 0.0-0.1 [facility] Comment on above: Performed By: #### G STAIN #### [facility] [address] [place] [address] Dr. Gunner Dwyer Basophils/100 WBC (Bld) 0.6 % Normal 0.2-2.0 [facility] Comment on above: Performed By: #### G STAIN #### [facility] [address] [place] [address] Dr. Gunner Dwyer EO # 0.1 103/ul Normal 0.0-0.7 [facility] Comment on above: Performed By: #### G STAIN #### [facility] [address] [place] [address] Dr. Gunner Dwyer Eosinophils/100 WBC (Bld) 2.5 % Normal 0.9-7.0 [facility] Comment on above: Performed By: #### G STAIN #### [facility] [address] [place] [address] Dr. Gunner Dwyer Erythrocyte distribution width (RBC) [Ratio] 11.9 % Normal 11.0-15.0 [facility] Comment on above: Performed By: #### G STAIN #### [facility] [address] [place] [address] Dr. Gunner Dwyer Hematocrit (Bld) [Volume fraction] 42.8 % Normal 36.0-48.0 [facility] Comment on above: Performed By: #### G STAIN #### [facility] [address] [place] [address] Dr. Gunner Dwyer Hemoglobin (Bld) [Mass/Vol] 13.8 g/dL Normal 12.0-16.0 [facility] Comment on above: Performed By: #### G STAIN #### [facility] [address] [place] [address] Dr. Gunner Dwyer IG # 0.01 10e3/ul Normal 0.00-0.03 [facility] Comment on above: Performed By: #### G STAIN #### [facility] [address] [place] [address] Dr. Gunner Dwyer IG % 0.2 % Normal 0.0-0.5 [facility] Comment on above: Performed By: #### G STAIN #### [facility] [address] [place] [address] Dr. Gunner wDyer LYMPH # 1.4 103/ul Normal 1.2-3.8 [facility] Comment on above: Performed By: #### G STAIN #### [facility] [address] [place] [address] Dr. Gunner Dwyer Lymphocytes/100 WBC (Bld) 27.5 % Normal 20.5-60.0 [facility] Comment on above: Performed By: #### G STAIN #### [facility] [address] [place] [address] Dr. Gunner Dwyer MANUAL DIFF REQ NO Normal [facility] Comment on above: Performed By: #### G STAIN #### [facility] [address] [place] [address] Dr. Gunner Dwyer MCH (RBC) [Entitic mass] 31.1 pg Normal 26.7-34.0 [facility] Comment on above: Performed By: #### G STAIN #### [facility] [address] [place] [address] Dr. Gunner Dwyer MCHC (RBC) [Mass/Vol] 32.2 g/dL Normal 29.9-35.2 [facility] Comment on above: Performed By: #### G STAIN #### [facility] [address] [place] [address] Dr. Gunner Dwyer MCV (RBC) [Entitic vol] 96.4 fL Normal 81.0-99.0 [facility] Comment on above: Performed By: #### G STAIN #### [facility] [address] [place] [address] Dr. Gunner Dwyre MONO # 0.3 103/ul Normal 0.3-0.8 [facility] Comment on above: Performed By: #### G STAIN #### [facility] [address] [place] [address] Dr. Gunner Dwyer Monocytes/100 WBC (Bld) 6.1 % Normal 1.7-12.0 [facility] Comment on above: Performed By: #### G STAIN #### [facility] [address] [place] [address] Dr. Gunner Dwyer NEUT # 3.3 103/ul Normal 1.4-6.5 [facility] Comment on above: Performed By: #### G STAIN #### [facility] [address] [place] [address] Dr. Gunner Dwyer Neutrophils/100 WBC (Bld) 63.1 % Normal 43.0-75.0 [facility] Comment on above: Performed By: #### G STAIN #### [facility] [address] [address] [address] Gunner Dwyer Platelet mean volume (Bld) [Entitic vol] 10.5 fL Normal 9.5-13.5 [facility] Comment on above: Performed By: #### G STAIN #### [facility] [address] [address] [address] Gunner Dwyer PLT 171 103/ul Normal 150-450 [facility] Comment on above: Performed By: #### G STAIN #### [facility] [address] [address] [address] Gunner Dwyer RBC 4.44 106/ul Normal 4.20-5.40 [facility] Comment on above: Performed By: #### G STAIN #### [facility] [address] [place] [address] Dr. Gunner Dwyer WBC 5.2 103/ul Normal 4.0-11.0 [facility] Comment on above: Performed By: #### G STAIN #### [facility] [address] [place] [address] Dr. Gunner Dwyer FREE THYROXINE INDEX T7on FTI 3.05 Normal 1.30-4.50 [facility] Comment on above: Performed By: #### T POAB #### [facility] [address] [place] [address] Dr. Gunner Dwyer T3U 24.0 % Critically low 30.0-39.0 [facility] Comment on above: Performed By: #### T POAB #### [facility] [address] [place] [address] Dr. Gunner Dwyer T4 [Mass/Vol] 12.70 ug/dL Normal 4.80-13.90 [facility] Comment on above: Performed By: #### T POAB #### [facility] [address] [place] [address] Dr. Gunner Dwyer GLYCOHEMOGLOBIN A1Con 2021 ADA RECOMMENDATION SEE BELOW Normal [facility] Comment on above: Result Comment: ADA RECOMMENDED LIMIT 4.0 - 6.0 ADA THERAPEUTIC TARGET < 7.0 ACTION SUGGESTED > 7.0 Performed By: #### T POAB #### [facility] [address] [place] [address] Dr. Gunner Dwyer Glucose [Mass/Vol] 97 mg/dL Normal [facility] Comment on above: Performed By: #### T POAB #### [facility] [address] [address] [address] Gunner Dwyer HbA1c (Bld) [Mass fraction] 5.0 % Normal 4.5-6.2 [facility] Comment on above: Performed By: #### T POAB #### [facility] [address] [place] [address] Dr. Gunner Dwyer IRONon 01-30-2022 Iron [Mass/Vol] 101.0 ug/dL Normal 50.0-170.0 [facility] Comment on above: Performed By: #### C T/NGNA #### [facility] [address] [place] [address] Dr. Gunner Dwyer LIPID PROFILEon 01-30-2022 CHOL-HDL RATIO NORM SEE BELOW Normal [facility] Comment on above: Result Comment: 3.3 - 4.4 LOW RISK 4.4 - 7.1 AVERAGE RISK 7.1 - 11.0 MODERATE RISK >11.0 HIGH RISK Performed By: #### T POAB #### [facility] [address] [place] [address] Dr. Gunner Dwyer Cholesterol [Mass/Vol] 168 mg/dL Normal <=200 [facility] Comment on above: Performed By: #### T POAB #### [facility] [address] [place] [address] Dr. Gunner Dwyer Cholesterol in HDL [Mass/Vol] 88 mg/dL Critically high 40-60 [facility] Comment on above: Performed By: #### T POAB #### [facility] [address] [place] [address] Dr. Gunner Dwyer Cholesterol in LDL [Mass/Vol] 69.6 mg/dL Normal [facility] Comment on above: Performed By: #### T POAB #### [facility] [address] [address] [address] Gunner Dwyer Cholesterol.total/Ch olesterol in HDL [Mass ratio] 1.9 {ratio} Normal [facility] Comment on above: Performed By: #### T POAB #### [facility] [address] [address] [address] Gunner Dwyer HDL NORMAL > or = 60 mg/dl - LO W CARDIOVASCULAR RISK <40 mg/dl - HIGH CARDIOVASCULAR RISK Normal [facility] Comment on above: Performed By: #### T POAB #### [facility] [address] [address] [address] Gunner Dwyer LDL CALC NORMAL SEE BELOW Normal [facility] Comment on above: Result Comment: <100 mg/dl OPTIMAL 100 - 129 mg/dl NEAR OR ABOVE OPTIMAL 130 - 159 mg/dl BORDERLINE HIGH 160 - 189 mg/dl HIGH >190 mg/dl VERY HIGH Performed By: #### T POAB #### [facility] [address] [place] [address] Dr. Gunner Dwyer Triglyceride [Mass/Vol] 52 mg/dL Normal <=150 [facility] Comment on above: Performed By: #### T POAB #### [facility] [address] [place] [address] Dr. Gunner Dwyer VLDL CALC 10.4 mg/dL Normal [facility] Comment on above: Performed By: #### T POAB #### [facility] [address] [address] [address] Gunner Dwyer PROF 14(COMP METB)on 022 Albumin [Mass/Vol] 4.0 g/dL Normal 3.4-5.0 [facility] Comment on above: Performed By: #### T POAB #### [facility] [address] [place] [address] Dr. Gunner Dwyer Albumin/Globulin [Mass ratio] 1.2 {ratio} Normal [facility] Comment on above: Performed By: #### T POAB #### [facility] [address] [place] [address] Dr. Gunner Dwyer ALP [Catalytic activity/Vol] 62 U/L Normal 46-116 [facility] Comment on above: Performed By: #### T POAB #### [facility] [address] [address] [address] Gunner Dwyer ALT [Catalytic activity/Vol] 60 U/L Critically high 14-59 [facility] Comment on above: Performed By: #### T POAB #### [facility] [address] [address] [address] Gunner Dwyer Anion gap [Moles/Vol] 10.8 mmol/L Normal [facility] Comment on above: Performed By: #### T POAB #### [facility] [address] [place] [address] Dr. Gunner Dwyer AST [Catalytic activity/Vol] 35 U/L Normal 15-37 [facility] Comment on above: Performed By: #### T POAB #### [facility] [address] [place] [address] Dr. Gunner Dwyer Bilirubin [Mass/Vol] 0.4 mg/dL Normal 0.2-1.0 [facility] Comment on above: Performed By: #### T POAB #### [facility] [address] [place] [address] Dr. Gunner Dwyer Calcium [Mass/Vol] 8.8 mg/dL Normal 8.5-10.1 [facility] Comment on above: Performed By: #### T POAB #### [facility] [address] [place] [address] Dr. Gunner Dwyer Chloride [Moles/Vol] 104 mmol/L Normal 98-107 [facility] Comment on above: Performed By: #### T POAB #### [facility] [address] [place] [address] Dr. Gunner Dwyer CO2 [Moles/Vol] 28.2 mmol/L Normal 21.0-32.0 [facility] Comment on above: Performed By: #### T POAB #### [facility] [address] [place] [address] Dr. Gunner Dwyer Creatinine [Mass/Vol] 0.69 mg/dL Normal 0.55-1.02 [facility] Comment on above: Performed By: #### T POAB #### [facility] [address] [address] [address] Gunner Dwyer EGFR-AF KENYAN >60 Normal >=60 [facility] Comment on above: Performed By: #### T POAB #### [facility] [address] [address] [address] Gunner Dwyer EGFR-NON AF KENYAN >60 Normal >=60 [facility] Comment on above: Performed By: #### T POAB #### [facility] [address] [address] [address] Gunner Dwyer Globulin (S) [Mass/Vol] 3.3 g/dL Normal [facility] Comment on above: Performed By: #### T POAB #### [facility] [address] [place] [address] Dr. Gunner Dwyer Glucose [Mass/Vol] 95 mg/dL Normal 74-[address] [facility] Comment on above: Performed By: #### T POAB #### [facility] [address] [address] [address] Gunner Dwyer Potassium [Moles/Vol] 4.0 mmol/L Normal 3.5-5.1 [facility] Comment on above: Performed By: #### T POAB #### [facility] [address] [address] [address] Gunner Dwyer Protein [Mass/Vol] 7.3 g/dL Normal 6.4-8.[address] [facility] Comment on above: Performed By: #### T POAB #### [facility] [address] [address] [address] Gunner Dwyer Sodium [Moles/Vol] 139 mmol/L Normal 136-[address] [facility] Comment on above: Performed By: #### T POAB #### [facility] [address] [address] [address] Gunner Dwyer Urea nitrogen [Mass/Vol] 18.0 mg/dL Normal 7.0-18.0 [facility] Comment on above: Performed By: #### T POAB #### [facility] [address] [place] [address] Dr. Gunner Dwyer Urea nitrogen/Creatinine [Mass ratio] 26.1 mg/mg Normal [facility] Comment on above: Performed By: #### T POAB #### [facility] [address] [place] [address] Dr. Gunner Dwyer TSHon 01-30-2022 TSH 0.529 uIU/mL Normal 0.358-3.740 [facility] Comment on above: Performed By: #### T POAB #### [facility] [address] [place] [address] Dr. Gunner Dwyer VITAMIN D 25 OHon 01-30-2022 VIT D 25-OH 30.6 ng/mL Normal [facility] Comment on above: Performed By: #### C T/NGNA #### [facility] [address] [place] [address] Dr. Gunner Dwyer VIT D RANGES SEE BELOW Normal [facility] Comment on above: Result Comment: <20 ng/mL Vit D deficient 20 - <30 ng/mL Vit D insufficient 30 - 100 ng/mL Vit D sufficient >100 ng/mL Potential Toxicity Performed By: #### C T/NGNA #### [facility] [address] [place] [address] Dr. Gunner Dwyer XR LSPINE MIN 4 VIEWSon 01-18 XR LSPINE MIN 4 VIEWS EXAMINATION: XR TSPINE 3 VIEWS, XR LSPINE MIN 4 VIEWS HISTORY: Lumbar radiculopathy COMPARISON: No relevant comparison available. FINDINGS: BONES: Normal alignment of the thoracic and lumbar spine with no acute fracture or spondylolisthesis. Minimal degenerative spondylosis. Moderate facet osteoarthropathy L5-S1 DISC SPACES: Moderate disc space narrowing L4-L5 PARASPINOUS: Negative. No paraspinous abnormality is seen. OTHER: Stool in the right and transverse colon IMPRESSION: Mild degenerative changes of the thoracic and lumbar spine Electronically authenticated by: GUILLE MISTRY Date: 2022-01-30 18:59 Normal [facility] Vital Signs Date Time Vital Sign Value Performing Clinician Facility 09-14-2024 16:38-0400 Body height 170.2 cm Serg Mata DPM FACFAS Work Phone: [facility] 09-14-2024 16:38-0400 Body mass index (BMI) [Ratio] 43.54 kg/m2 Serg Mata DPM FACFAS Work Phone: [facility] 09-14-2024 16:38-0400 Body weight 126.1 kg Serg Mata DPM FACFAS Work Phone: [facility] 09-14-2024 16:38-0400 Diastolic blood pressure 74 mm[Hg] Serg Azulmelia DPM FACFAS Work Phone: [facility] 09-14-2024 16:38-0400 Heart rate 74 /min Serg Mata DPM FACFAS Work Phone: [facility] 09-14-2024 16:38-0400 Systolic blood pressure 124 mm[Hg] Serg Mata DPM FACFAS Work Phone: [facility] 09-06-2024 15:30-0400 Body height 170.2 cm Yared Brown DPM Work Phone: [facility] 09-06-2024 15:30-0400 Body mass index (BMI) [Ratio] 43.54 kg/m2 Yared Brown DPM Work Phone: [facility] 09-06-2024 15:30-0400 Body weight 126.1 kg Yared Brown DPM Work Phone: [facility] 09-06-2024 15:30-0400 Respiratory rate 16 /min Yared Brown DPM Work Phone: [facility] 08-29-2024 15:22-0400 Body height 170.2 cm Yared Brown DPM Work Phone: [facility] 08-29-2024 15:22-0400 Body mass index (BMI) [Ratio] 43.54 kg/m2 Yared Brown DPM Work Phone: [facility] 08-29-2024 15:22-0400 Body weight 126.1 kg Yared Terrazas DPM Work Phone: [facility] 08-29-2024 15:22-0400 Respiratory rate 16 /min Yared Terrazas DPM Work Phone: [facility] 08-08-2024 15:44-0400 Body height 170.2 cm Yared Terrazas DPM Work Phone: [facility] 08-08-2024 15:44-0400 Body mass index (BMI) [Ratio] 43.54 kg/m2 Yared Terrazas DPM Work Phone: [facility] 08-08-2024 15:44-0400 Body weight 126.1 kg Yared Terrazas DPM Work Phone: [facility] 08-08-2024 15:44-0400 Respiratory rate 16 /min Yared Mk DPM Work Phone: [facility] 12-17-2023 11:15-0400 Diastolic blood pressure 70 mm[Hg] Darrick Benitez MD Work Phone: [facility] 12-17-2023 11:15-0400 Heart rate 84 /min Darrick Benitez MD Work Phone: [facility] 12-17-2023 11:15-0400 Respiratory rate 16 /min Darrick Benitez MD Work Phone: [facility] 12-17-2023 11:15-0400 SaO2% (BldA) [Mass fraction] 96 % Darrick Benitez MD [facility] 12-17-2023 11:15-0400 Systolic blood pressure 133 mm[Hg] Darrick Benitez MD Work Phone: [facility] 12-17-2023 11:00-0400 Body temperature 96.8 [degF] Darrick Benitez MD Work Phone: [facility] [employer] 12-03-2023 08:44-0400 Body temperature 97.5 [degF] Darrick Benitez MD Work Phone[facility] [employer] 12-03-2023 08:44-0400 Diastolic blood pressure 70 mm[Hg] Darrick Benitez MD Work Phone: [facility] [employer] 12-03-2023 08:44-0400 Heart rate 58 /min Darrick Benitez MD Work Phone: [facility] [employer] 12-03-2023 08:44-0400 Respiratory rate 15 /min Darrick Benitez MD Work Phone: [facility] [employer] 12-03-2023 08:44-0400 SaO2% (BldA) [Mass fraction] 95 % Darrick Benitez MD Work Phone: [facility] [employer] 12-03-2023 08:44-0400 Systolic blood pressure 123 mm[Hg] Darrick Benitez MD Work Phone: [facility] [employer] 11-30-2023 13:11-0400 Body height 170.2 cm Darrick Benitez MD Work Phone: [facility] [employer] 11-30-2023 13:11-0400 Body mass index (BMI) [Ratio] 40.57 kg/m2 Darrick Benitez MD Work Phone: [facility] [employer] 11-30-2023 13:11-0400 Body weight 117.48 kg Darrick Benitez MD Work Phone: [facility] [employer] 11-21-2023 15:57-0400 Body mass index (BMI) [Ratio] 40.71 kg/m2 Saul Patterson MD [facility] [employer] 11-21-2023 15:57-0400 Body temperature 97.3 [degF] Saul Patterson [facility] [employer] 11-21-2023 15:57-0400 Body weight 117.9 kg Saul Patterson [facility] [employer] 11-21-2023 15:57-0400 Diastolic blood pressure 73 mm[Hg] Saul Patterson MD [facility] 11-21-2023 15:57-0400 Heart rate 82 /min Saul Patterson MD [facility] 11-21-2023 15:57-0400 Respiratory rate 16 /min Saul [facility] 11-21-2023 15:57-0400 SaO2% (BldA) [Mass fraction] 100 % Saul Patterson MD [facility] 11-21-2023 15:57-0400 Systolic blood pressure 127 mm[Hg] Saul Patterson MD [facility] 11-21-2023 11:52-0400 Body height 170.18 cm MD Sherin House Work Phone: [facility] 11-21-2023 11:52-0400 Body temperature 97.4 [degF] MD Sherin House Work Phone: [facility] 11-21-2023 11:52-0400 Body weight 117 kg MD Sherin House Work Phone: [facility] 11-21-2023 11:52-0400 Diastolic blood pressure 74 mm[Hg] MD Sherin House Work Phone: [facility] 11-21-2023 11:52-0400 Heart rate 78 /min MD Sherin House Work Phone: [facility] 11-21-2023 11:52-0400 Respiratory rate 18 /min MD Sherin House Work Phone: [facility] 11-21-2023 11:52-0400 SaO2% (BldA) [Mass fraction] 97 % MD Sherin House Work Phone: [facility] 11-21-2023 11:52-0400 Systolic blood pressure 135 mm[Hg] MD Sherin House Work Phone: [facility] 12-11-2022 13:54-0400 Blood Pressure Location Miguelina ROQUE [facility] [place] 08-24-2023 13:54-0400 Diastolic blood pressure 84 mm[Hg] Miguelina NILL [facility] [place] 12-11-2022 13:54-0400 Heart rate 72 /min Miguelina NILL [facility] [place] 12-11-2022 13:54-0400 Respiratory rate 16 /min Miguelina NILL [facility] [place] 12-11-2022 13:54-0400 Systolic blood pressure 126 mm[Hg] Miguelina NILL [facility] [place] 08-06-2022 13:25-0400 Diastolic blood pressure 84 mm[Hg] Miguelina NILL General Surgery [place] 08-06-2022 13:25-0400 Heart rate 70 /min Miguelina NILL [facility] [place] 08-06-2022 13:25-0400 Respiratory rate 16 /min Miguelina NILL [facility] [place] 08-06-2022 13:25-0400 Systolic blood pressure 122 mm[Hg] Miguelina NILL General Surgery [place] 02-19-2021 16:45-0400 Body height 170.18 cm Guille Abrams Other [employer] Other 02-19-2021 16:45-0400 Body mass index (BMI) [Ratio] 36.02 kg/m2 Guille Abrams Other [employer] Other 02-19-2021 16:45-0400 Body weight 104.33 kg Guille Abrams Other [employer] Other Encounters Encounter Date Encounter Type Care Provider Facility Start: 10-03-2024 End: 10-03-2024 Clinisync Result Encounter Serg D Dolce DPM FACFAS Work Phone: [facility] External Department Unsolicited Start: 10-03-2024 End: 10-03-2024 Clinisync Result Encounter Serg Mata DPM FACFAS Work Phone: [facility] External Department Unsolicited Start: 09-15-2024 Emergency department patient visit SHERIN Bing Facility:[facility] Start: 09-14-2024 End: 09-14-2024 Office outpatient visit 25 minutes Serg Mata DPM FACFAS Work Phone: [facility] Comment on above: Osteochondritis diss ecans of right ankle (Primary Dx); Solitary bone cyst of right foot; Other synovitis and tenosynovitis, right ankle and foot Start: 09-14-2024 End: 09-14-2024 ambulatory SERG MATA Not Available Start: 09-14-2024 End: 09-14-2024 Bamboo flowsheet Serg Mata DPM FACFAS Work Phone: [facility] Start: 09-14-2024 End: 09-14-2024 Bamboo flowsheet Serg Liangmelia DPM FACFAS Work Phone: [facility] Start: 09-14-2024 End: 09-14-2024 Telephone encounter Serg Mata DPM FACFAS Work Phone: [facility] Start: 09-06-2024 End: 09-06-2024 Office outpatient visit 15 minutes Yared Terrazas DPM Work Phone: [facility] Comment on above: Sprain of anterior t alofibular ligament of right ankle, initial encounter (Primary Dx); Contracture of right ankle; Solitary bone cyst of right foot; Osteochondritis dissecans of right ankle Start: 09-06-2024 End: 09-06-2024 ambulatory YARED TERRAZAS Not Available Start: 09-06-2024 End: 09-06-2024 Bamboo flowsheet Yared Terrazas DPM Work Phone: [facility] Start: 09-06-2024 End: 09-06-2024 Bamboo flowsheet Yared Terrazas DPM Work Phone: [facility] Start: 09-05-2024 End: 09-05-2024 ambulatory YARED TERRAZAS Not Available Start: 08-29-2024 End: 08-29-2024 Office outpatient visit 15 minutes Yared Terrazas DPM Work Phone: [facility] Comment on above: Sprain of anterior t alofibular ligament of right ankle, initial encounter (Primary Dx); Solitary bone cyst of right foot; Contracture of right ankle Start: 08-29-2024 End: 08-29-2024 ambulatory YARED TERRAZAS Not Available Start: 08-29-2024 End: 08-29-2024 Bamboo flowsheet Yared Terrazas DPM Work Phone: [facility] Start: 08-29-2024 End: 08-29-2024 Bamboo flowsheet Yared Terrazas DPM Work Phone: [facility] Start: 08-08-2024 End: 08-08-2024 Office outpatient new 45 minutes Yared Joe Terrazas DPM Work Phone: [facility] Comment on above: Sprain of anterior t alofibular ligament of right ankle, initial encounter (Primary Dx); Solitary bone cyst of right foot; Contracture of right ankle Start: 08-08-2024 End: 08-08-2024 ambulatory YARED TERRAZAS Not Available Start: 08-08-2024 End: 08-08-2024 Bamboo flowsheet Yared Terrazas DPM Work Phone: [facility] Start: 08-08-2024 End: 08-08-2024 Bamboo flowsheet Yared Joe Brown DPM Work Phone: [facility] Start: 07-17-2024 Emergency department patient visit SHERIN Bing Facility:[facility] Start: 12-17-2023 End: 12-17-2023 ambulatory DARRICK BENITEZ [facility] Start: 12-17-2023 End: 12-17-2023 Subsequent hospital visit by physician Darrick Benitez MD Work Phone: [facility] Comment on above: H/O umbilical hernia repair (Primary Dx); S/P left inguinal hernia repair Start: 12-03-2023 End: 12-03-2023 ambulatory DARRICK Briseno [facility] Start: 12-03-2023 End: 12-03-2023 Subsequent hospital visit by physician Darrick Benitez MD Work Phone: [facility] Start: 11-21-2023 End: 11-21-2023 Emergency department patient visit SHERIN HOUSE [facility] Comment on above: Umbilical hernia wit hout obstruction and without gangrene (Primary Dx); Left inguinal hernia Start: 11-21-2023 End: 11-21-2023 Emergency department patient visit MD Sherin House Work Phone: [facility] Work Phone: Start: 02-20-2023 End: 02-21-2023 ambulatory Miguelina R NILL Facility: [place] Start: 02-20-2023 End: 02-20-2023 Patient encounter procedure Miguelina R NILL General Surgery [facility] Start: 01-28-2023 End: 01-29-2023 ambulatory Miguelina R NILL Facility: [place] Start: 01-28-2023 End: 01-28-2023 Patient encounter procedure Miguelina R NILL General Surgery [facility] [place] Start: 01-14-2023 End: 01-15-2023 ambulatory Miguelina R NILL Facility: [place] Start: 01-13-2023 ambulatory Miguelina R NILL Facility :[id number] Start: 01-07-2023 End: 01-08-2023 ambulatory Miguelina R NILL Facility:CD:[id number] Start: 12-23-2022 End: 12-24-2022 ambulatory Miguelina R NILL Facility:[facility] [place] Start: 12-23-2022 End: 12-23-2022 Patient encounter procedure Miguelina R NILL General Surgery Nill/[facility] Start: 12-16-2022 End: 12-17-2022 ambulatory Miguelina R NILL Facility:[facility] Start: 12-11-2022 End: 12-12-2022 ambulatory Miguelina R NILL Facility:[facility] Start: 12-11-2022 End: 12-11-2022 Lab Drop off Miguelina R NILL [facility] Start: 12-11-2022 End: 12-11-2022 Patient encounter procedure Miguelina R NILL [facility] Surgery [place] Start: 11-14-2022 End: 11-15-2022 ambulatory Miguelina R NILL Facility:[facility] Start: 11-11-2022 End: 11-12-2022 ambulatory Miguelina R NILL Facility:[facility] Start: 09-17-[address] SHERIN HOUSE . Facili ty:[facility] Start: 09-02-2022 End: 09-03-[address] SHERIN HOUSE . Facility: Start: 08-06-2022 End: 08-07-2022 ambulatory Miguelina R NILL Facility:[facility] Start: 08-06-2022 End: 08-06-2022 Patient encounter procedure Miguelina R NILL General Surgery Nill/Said [place] Start: 07-15-2022 ambulatory Miguel[facility] R NILL [facility] Start: 07-09-2022 End: 07-10-[address] SHERIN HOUSE . Facility:[facility] Start: 07-03-2022 End: 07-04-[address] SHERIN HOUSE . Facility:[facility] Start: 05-15-2022 End: 05-15-[address] SHERIN HOUSE . Facility:[facility] Start: 04-05-2022 Encounter for preprocedural laboratory examination DR JUSTINO DIAS . [facility] Start: 04-03-2022 End: 04-03-[address] SHERIN HOUSE . Facility:[facility] Start: 03-31-2022 End: 04-01-[address] SHERIN HOUSE . Facility:[facility] Start: 03-31-2022 End: 04-01-2022 Encounter for preprocedural laboratory examination DR SHERIN HOUSE . Facility:[facility] Start: 03-24-2022 End: 03-25-[address] SHERIN HOUSE . Facility:[facility] Start: 02-25-2022 End: 02-26-[address] JUSTINO DIAS . Facility:[facility] Start: 02-05-2022 End: 02-05-[address] JUSTINO DIAS . Facility:[facility] Start: 01-30-2022 End: 01-31-[address] SHERIN HOUSE . Facility:[facility] Start: 02-19-2021 End: 02-19-2021 ambulatory Guille Abrams Other [employer] Other Start: 02-19-2021 Office outpatient ne w 30 minutes Guille Abrams [facility] Start: 02-19-2021 Telephone encounter Guille Abrams [facility] Gastro[facility] Procedures Date Procedure Procedure Detail Performing Clinician Start: 10-03-2024 ALL CBC WITH AUTO DIFF Serg Ke Liangce DPM FACFAS Work Phone: Start: 10-03-2024 ECG 12-LEAD Serg D Dolce DPM FACFAS Work Phone: Start: 08-08-2024 End: 08-08-2024 Radex ankle complete minimum 3 views Yared Terrazas DPM Work Phone: Start: 12-17-2023 End: 12-17-2023 Assay of phosphorus inorganic Darrick ba MD Work Phone: Start: 12-17-2023 Lipid panel Darrick Benitez MD Work Phone: Start: 12-17-2023 CALCIUM, IONIC (POC) Darrick Benitez MD Work Phone: Start: 12-17-2023 CREATININE W/GFR POINT OF CARE Darrick Benitez MD Work Phone: Start: 12-17-2023 ELECTROLYTES PLUS Darrick Benitez MD Work Phone: Start: 11-21-2023 Ct abdomen & pelvis w/contrast material Favio Devlin DO Work Phone: Start: 11-21-2023 Comprehensive metabolic panel Favio Co ots DO Work Phone: Start: 11-07-2014 Microscopic observation [Identifier] in Cervix by Cyto stain Saul Patterson MD Appendectomy Miguelina NILL section Miguelina NIL L Cholecystectomy Miguelina NILL Colonoscopy Miguelina NILL Esophagogastroduodenoscopy M ichael NILL Excision of cyst of ovary Mi alexandre NILL History of repair of inguinal hernia S/P left inguinal hernia repair Darrick Benitez MD Work Phone: Laparoscopy Miguelina NILL Transcervical sterilization Miguelina NILL Plan of Treatment Date Care Activity Detail Author Start: 12-19-2024 Influenza vaccination Influenz a Vaccine (Season Ended) [facility] Start: 11-07-2024 End: 11-07-2024 MR Foot - right WO contrast MR foot right wo IV contrast Imaging Routine Solitary bone cyst of right foot Expected: 11/07/2024, Expires: 11/07/2024 [facility] [employer] Work Phone: Comment on above: Expected: 11/07/2024 , Expires: 11/07/2024 Start: 10-18-2024 End: 10-18-2024 Patient encounter procedure 10/18/2024 9:20 AM EDT Office Visit [facility] [address] [place] [phone] Serg Mata, DPM FACFAS [address] [place] [address] [facility] Start: 10-05-2024 End: 10-05-2024 Patient encounter procedure 10/05/2024 4:00 PM EDT Office Visit [facility] [address] [place] [phone] Serg Mata, DPM FACFAS [address] [place] [address] [facility] Start: 09-14-2024 End: 09-14-2024 Patient encounter procedure 09/14/2024 4:20 PM EDT Office Visit [facility] [address] [place] [phone] Serg Mata, DPM FACFAS [address] [place] [address] Arrived [facility] Comment on above: Arrived Start: 09-06-2024 End: 09-06-2024 Patient encounter procedure 09/06/2024 3:30 PM EDT Office Visit [facility] [address] [place] [phone] Yared Terrazas, DPM [address] [address] Sprain of anterior talofibular ligament of right ankle, initial encounter (Primary Dx); Contracture of right ankle; Solitary bone cyst of right foot; Osteochondritis dissecans of right ankle [facility] Comment on above: Sprain of anterior t alofibular ligament of right ankle, initial encounter (Primary Dx); Contracture of right ankle; Solitary bone cyst of right foot; Osteochondritis dissecans of right ankle Start: 08-29-2024 End: 08-29-2024 Patient encounter procedure 08/29/2024 3:20 PM EDT Office Visit [facility] [address] [place] [phone] Yared Terrazas DPM [address] [address] Sprain of anterior talofibular ligament of right ankle, initial encounter (Primary Dx); Solitary bone cyst of right foot; Contracture of right ankle [facility] Comment on above: Sprain of anterior t alofibular ligament of right ankle, initial encounter (Primary Dx); Solitary bone cyst of right foot; Contracture of right ankle Start: 08-08-2024 End: 08-08-2024 Patient encounter procedure 08/08/2024 3:40 PM EDT Office Visit [facility] [address] [place] [phone] Yared Terrazas DPM [address] [address] Arrived [facility] Comment on above: Arrived Start: 12-29-2023 End: 12-29-2023 Patient encounter procedure 12/29/2023 12:45 PM EDT Office Visit [facility] General Surgery [address] [place] [address] Post Op/ OPEN UMBILICAL HERNIA REPAIR, OPEN LEFT INGUINAL HERNIA REPAIR, MESH 12/03/2023 [facility] General Surgery Comment on above: Post Op/ OPEN UMBILI TAHMINA HERNIA REPAIR, OPEN LEFT INGUINAL HERNIA REPAIR, MESH 12/03/2023 Start: 12-17-2023 End: 12-17-2023 Admission to same day surgery center 12/17/2023 7:30 AM EDT - 12/17/2023 9:10 AM EDT Surgery [facility] [address] [place] [id number] Darrick Benitez MD [address] [place] [address] OPEN UMBILICAL HERNIA REPAIR, OPEN LEFT INGUINAL HERNIA REPAIR, MESH [facility] Comment on above: OPEN UMBILICAL HERNI A REPAIR, OPEN LEFT INGUINAL HERNIA REPAIR, MESH Start: 12-17-2023 End: 12-17-2023 Rpr 1st ingun hrna age 4 yrs/> [facility] Start: 12-17-2023 Subsequent hospital visit by physician 12/17/2023 7:30 AM EDT Hospital Encounter [facility] [address] [facility] [place] [address] Darrick Benitez MD [address] [facility] [address] [place] [address] [facility] Start: 12-15-2023 End: 12-15-2023 Patient encounter procedure 12/15/2023 12:45 PM EDT Office Visit [facility] [address] [facility] [address] [place] [address] Post Op/ OPEN UMBILICAL HERNIA REPAIR, OPEN LEFT INGUINAL HERNIA REPAIR, MESH 12/03/2023 [facility] General Surgery Comment on above: Post Op/ OPEN UMBILI TAHMINA HERNIA REPAIR, OPEN LEFT INGUINAL HERNIA REPAIR, MESH 12/03/2023 Start: 11-19-2023 Influenza vaccination Flu vaccine (# 1) [facility] Start: 02-23-2023 DTaP/Tdap/Td vaccine (2 - Td or Tdap) DTaP/Tdap/Td vaccine (2 - Td or Tdap) [facility] Start: 12-19-2022 COVID-19 Vaccine ( season) COVID-19 Vaccine ( season) [facility] Start: 11-07-2017 Screening for malignant neoplasm of cervix [facility] Start: 2014 Screening for malignant neoplasm of cervix [facility] Start: 12-15-2003 Hepatitis B vaccine (1 of 3 - 19+ 3-dose series) Hepatitis B vaccine (1 of 3 - 19+ 3-dose series) [facility] Start: 2002 Hepatitis C screening Hepatitis C sc reen [facility] Start: 12-15-1999 HIV screening HIV screen [facility] Start: 1997 Varicella vaccine (1 of 2 - 13+ 2-dose series) Varicella vaccine (1 of 2 - 13+ 2-dose series) [facility] Start: 1996 Depression Monitoring Depression Mon itoring [facility] Start: 1985 Varicella vaccine (1 of 2 - 2-dose childhood series) Varicella vaccine (1 of 2 - 2-dose childhood series) [facility] Start: 06-16-1985 COVID-19 Vaccine (#1) COVID-19 Vacci ne (#1) [facility] Start: 1984 Hepatitis B vaccine (1 of 3 - 3-dose series) Hepatitis B vaccine (1 of 3 - 3-dose series) [facility] End: 12-17-2023 INITIATE PACU OXYGEN THERAPY PROTOCOL Initiate PACU Oxygen Therapy Protocol Respiratory Care Routine Continuous until discontinued starting 12/17/2023 [facility] Work Phone: Comment on above: Continuous until dis continued starting 12/17/2023 Immunizations Immunization Date Immunization Notes Care Provider Fa cility 09-13-2020 SARS-CoV-2 (COVID-19 ) mRNA-1273 vaccine Miguelina ROQUE [facility] [place] 08-16-2020 SARS-CoV-2 (COVID-19 ) mRNA-1273 vaccine Miguelina NILL [facility] [place] 04-20-2020 SARS-CoV-2 (COVID-19 ) mRNA-1273 vaccine Miguelina NILL [facility] Comment on above: Result Comment: pt h as had 2 shots 02-03-2020 influenza virus vaccine, unspecified formulation Yared Terrazas DPM Work Phone: [facility] Healthcare NEGATED: Highlighted row has not occurred!08-06-2022 influenza virus vaccine, unspecified formulation Miguelina ROQUE [facility] Payers Date Payer Category Payer Private Health Insurance [employer] IS [id number] 2024 Unknown [id number] 2023 Unknown [id number] 2023 Self-pay 1984 Unknown [id number] 2.16.840.1.846380.3.579.2. 593 1984 Unknown [id number] 2.16.840.1.374526.3.579.2. 593 1984 Unknown [id number] 2.16.840.1.310830.3.579.2. 593 1984 Unknown [id number] 2.16.840.1.479883.3.579.2. 593 1984 Unknown [id number] 2.16.840.1.873310.3.579.2. 593 1984 Unknown [id number] 2.16.840.1.998671.3.579.2. 593 1984 Unknown [id number] 2.16.840.1.479715.3.579.2. 593 1984 Unknown [id number] 2.16.840.1.377120.3.579.2. 593 1984 Unknown [id number] 2.16.840.1.069128.3.579.2. 593 1984 Unknown [id number] 2.16.840.1.435998.3.579.2. 593 1984 Unknown [id number] 2.16.840.1.699315.3.579.2. 593 1984 Unknown [id number] 2.16.840.1.583508.3.579.2. 727 1984 Unknown [id number] 2.16.840.1.713164.3.579.2. 727 1984 Unknown [id number] 2.16840.1.837247.3.579.2. 72 1984 Unknown [id number] 2.16.840.1.049093.3.579.2. 727 1984 Unknown [id number] 2.840.1.355228.3.579.2. 72 1984 Unknown [id number] 2.16840.1.620981.3.579.2. 72 1984 Unknown [id number] 2.840.1.682776.3.579.2. 1984 Unknown [id number] 2.840.1.222350.3.579.2. 72 1984 Unknown [id number] 2.840.1.208239.3.579.2. 72 1984 Unknown [id number] 2.840.1.900052.3.579.2. 72 1984 Unknown [id number] 2.840.1.703107.3.579.2. 1984 Unknown [id number] 2.840.1.345780.3.579.2. 72 1984 Unknown [id number] 2.840.1.616589.3.579.2. 175 1984 Unknown [id number] 2.840.1.516775.3.579.2. 175 1984 Unknown [id number] 2.840.1.267156.3.579.2. 175 1984 Unknown [id number] 2.16840.1.378870.3.579.2. 1259 1984 Unknown [id number] 2.840.1.449054.3.579.2. 1259 1984 Unknown [id number] 2.16840.1.925419.3.579.2. 1259 1984 Unknown [id number] 2.16.840.1.582073.3.579.2. 9 1984 Unknown [id number] 2.16.840.1.628263.3.579.2. 9 1984 Unknown [id number] 2.16.840.1.387543.3.579.2. 9 1984 Unknown [id number] 2.16.840.1.901632.3.579.2. 9 1984 Unknown [id number] 2.16.840.1.993262.3.579.2. 8 1984 Unknown [id number] 2.16.840.1.230187.3.579.2. 718 1959 Unknown [id number] 2.16.840.1.615989.19 1959 Unknown [id number] Unknown [id number] 2.16.840.1.067830.3.579.2. 531 Social History Date Type Detail Facility Unknown if ever smoked [employer] Other Start: 01-05-2016 End: 09-14-2024 Sex Assigned At [facility] Start: 08-06-2022 End: 12-16-2023 Tobacco smoking status Ex-smoker (finding) [facility] [place] Tobacco smoking status Smokeless tobacco user within last 30 days [facility] [place] Start: 11-21-2023 Tobacco smoking status NHIS Smoker (finding) [facility] Start: 1985 Sex Assigned At Female [facility] History of tobacco use Cigarette Smoker [employer] Start: 08-17-2014 End: 08-08-2024 Tobacco use and exposure Smokeless tobacco non-user [employer] Start: 12-28-2014 End: 12-17-2023 Alcohol intake Current drinker of alcohol (finding) [employer] Start: 01-05-2016 End: 09-14-2024 History of Social function [employer] Start: 08-17-2014 End: 11-26-2023 Tobacco Comment quit 3 months ago [employer] Start: 01-20-2013 Alcohol Comment rarely [facility] Start: 1985 Sex Assigned At Not on file [employer] How often to you have a drink containing alcohol? Never [employer] Tobacco smoking status MIIS Tobacco smoking consumption unknown [facility] Start: 08-08-2024 Tobacco smoking status NHIS Smokes tobacco daily [facility] Start: 08-08-2024 End: 09-14-2024 Alcoholic beverage intake Ex-drinker (finding) [facility] NEGATED: Highlighted row [facility] Medical Equipment Procedure Code Equipment Code Equipment Origin al Text Equipment Identifier Dates [id number] FDA Start: 12-17-2023 Functional Status Date Assessment Result Facility 12-11-2022 Functional Status N/A [facility] General Surgery [place] 08-06-2022 Functional Status N/A [facility] Clinical Notes 02-19-2021 to 09-15-2024 [facility] En[facility] - 09/14/[facility]24 7:45 PM EDTTelephone Encounter - [facility] - 09/14/2024 7:45 PM EDTMRAJEEV Ferreira - 09/14/2024 4:20 PM EDT Note Date & Type Note Facility 09-15-2024 Note Education Materials Infectious Disease Incision and Drainage, Care After After incision and drainage, it is common to have: ? Pain or discomfort around the incision site. ? Blood, fluid, or pus (drainage) from the incision. ? Redness and firm skin around the incision site. Follow these instructions at home: Medicines ? Take cpls-yev-vcqgzqo and prescription medicines only as told by your health care provider. ? If you were prescribed antibiotics, take them as told by your provider. Do not stop using the antibiotic even if you start to feel better. ? Do not apply creams, ointments, or liquids unless you have been told to by your provider. Wound care Follow instructions from your provider about how to take care of your wound. Make sure you: ? Wash your hands with soap and water for at least 20 seconds before and after you change your bandage (dressing). If soap and water are not available, use hand litigation specialist. ? Change your dressing and any packing as told by your provider. ? If the dressing is dry or stuck when you try to remove it, moisten or wet it with saline or water. This will help you remove it without harming your skin or tissues. ? If your wound is packed, leave it in place until your provider tells you to remove it. To remove it, moisten or wet the packing with saline or water. ? Leave stitches (sutures), skin glue, or tape strips in place. These skin closures may need to stay in place for 2 weeks or longer. If tape strip edges start to loosen and curl up, you may trim the loose edges. Do not remove tape strips completely unless your provider tells you to do that. Check your wound every day for signs of infection. Check for: ? More redness, swelling, or pain. ? More fluid or blood. ? Warmth. ? Pus or a bad smell. If you were sent home with a drain tube in place, follow instructions from your provider about: ? How to empty it. ? How to care for it at home. Be careful when you get rid of used dressings, wound packing, or drainage. Activity ? Rest the affected area. ? Return to your normal activities as told by your provider. Ask your provider what activities are safe for you. General instructions ? Do not use any products that contain nicotine or tobacco. These products include cigarettes, chewing tobacco, and vaping devices, such as e-cigarettes. These can delay incision healing after surgery. If you need help quitting, ask your provider. ? Do not take baths, swim, or use a hot tub until your provider approves. Ask your provider if you may take showers. You may only be allowed to take sponge baths. ? The incision will keep draining. It is normal to have some clear or slightly bloody drainage. The amount of drainage should go down each day. ? Keep all follow-up visits. Your provider will need to make sure that your incision is healing well and that there are no problems. Your health care provider may give you more instructions. Make sure you know what you can and cannot do Contact a health care provider if: ? Your cyst or abscess comes back. ? You have any signs of infection. ? You notice red streaks that spread away from the incision site. ? You have a fever or chills. Get help right away if: ? You have severe pain or bleeding. ? You become short of breath. ? You have chest pain. ? You have signs of a severe infection. You may notice changes in your incision area, such as: ? Swelling that makes the skin feel hard. ? Numbness or tingling. ? Sudden increase in redness. Your skin color may change from red to purple, and then to dark spots. ? Blisters, ulcers, or splitting of the skin. These symptoms may be an emergency. Get help right away. Call 911. ? Do not wait to see if the symptoms will go away. ? Do not drive yourself to the hospital. This information is not intended to replace advice given to you by your health care provider. Make sure you discuss any questions you have with your health care provider. Document Revised: 11/24/2022 Document Reviewed: 11/24/2022 [employer] Patient Education ? 2023 [facility]-14-2024 Telephone encounter Note Phone #: [phone] Insurance: Payor: Crystal IS / Plan: [employer] [facility] [employer] / Product Type: *No Product type* / Preferred Date/Time: First Available [x] ADRIANNA [] Patient Name: Tiara Parikh : 1985 Surgeon: Dr. Serg Mata [x] Dr. Richard Mata [] Location: [facility] [x] [facility] [] [facility] [] Procedure(s): ankle arthroscopy [id number] CPT Code(s): 41398 Diagnosis: No diagnosis found. Procedure Time: 30 min [x] 1 Hour [] 1.5 Hour [] 2 Hours [] Anesthesia: MAC [x] General [] Local [] Popliteal Block [] Position: Supine [x] Prone [] Lateral [] Special Requests: C-arm [] Pulse Lavage [] [employer] [] Special Equipment: Arthrex plate /screws [] Internal brace [] Arthrex FiberTak [] Biopro Staple [] Biopro Carlos Eduardo Impant [] Other [] Pre-op Orders: Abx 30 min Prior: 2g Ancef [x] Clindamycin 600mg [] Vancomycin 1 g [] Post-op WB: Partial WB [] Non-WB [x] Crutches [] Walker [] Knee Scooter [] PCP Clearance: Sherin House MD Other Clearance: Cardiology [] Rheumatology [] Other [] [facility] Work Phone: 09-14-2024 Miscellaneous Notes Phone #: [phone] Insurance: Payor: Crystal IS / Plan: [employer] [facility] [employer] / Product Type: *No Product type* / Preferred Date/Time: First Available [x] ADRIANNA [] Patient Name: Tiara Parikh : 1985 Surgeon: Dr. Serg Mata [x] Dr. Richard Mata [] Location: [facility] [x] [facility] [place] [] [facility] [] Procedure(s): ankle arthroscopy [id number] CPT Code(s): 30050 Diagnosis: No diagnosis found. Procedure Time: 30 min [x] 1 Hour [] 1.5 Hour [] 2 Hours [] Anesthesia: MAC [x] General [] Local [] Popliteal Block [] Position: Supine [x] Prone [] Lateral [] Special Requests: C-arm [] Pulse Lavage [] VersaJet [] Special Equipment: Arthrex plate /screws [] Internal brace [] Arthrex FiberTak [] Biopro Staple [] Biopro Carlos Eduardo Impant [] Other [] Pre-op Orders: Abx 30 min Prior: 2g Ancef [x] Clindamycin 600mg [] Vancomycin 1 g [] Post-op WB: Partial WB [] Non-WB [x] Crutches [] Walker [] Knee Scooter [] PCP Clearance: Sherin House MD Other Clearance: Cardiology [] Rheumatology [] Other [] documented in this encounter [facility] 09-14-2024 History of Present illness Narrative Patient: Tiara Parikh : 1985 PCP: Sherin House MD SUBJECTIVE This is a 38 y.o. female that presents today for history of right ankle sprain. She had been wearing a walking boot and taking oral steroid with some improvement. Patient rates pain a 7/10. Patient was referred today by Dr. Vail from a significant right ankle via an MRI which revealed: MRI: EXAM: MR FOOT RIGHT WO IV CONTRAST [...] lesion. ELECTRONICALLY SIGNED BY: Zia Alexander DO Allergies: No Known Allergies Past Medical History: Past Medical History: Diagnosis Date Difficulty walking 25 Hepatitis Plantar fasciitis Substance abuse Medications: Current Outpatient Medications: Abilify 30 MG tablet, , Disp: , Rfl: methylPREDNISolone (Medrol Dospak) 4 MG tablets, Follow schedule on MEDROL PACK package instructions to be used as directed, Disp: 21 tablet, Rfl: 0 Mobic 15 MG tablet, , Disp: , Rfl: Social History: Social History Socioeconomic History Marital status: Spouse name: Not on file Number of children: Not on file Years of education: Not on file Highest education level: Not on file Occupational History Not on file Tobacco Use Smoking status: Every Day Smokeless tobacco: Never Substance and Sexual Activity Alcohol use: Not Currently Drug use: Not Currently Types: Amphetamines, Fentanyl, Heroin, Hydrocodone, Marijuana, MDMA (Ecstasy), Methamphetamines, Oxycodone, Psilocybin Sexual activity: Yes Partners: Male control/protection: Female Sterilization Other Topics Concern Not on file Social History Narrative Not on file Social Drivers of Health Financial Resource Strain: Not on file Food Insecurity: Not on file Transportation Needs: Not on file Physical Activity: Not on file Stress: Not on file Social Connections: Not on file Intimate Partner Violence: Not on file Housing Stability: Not on file ROS: General: denies fever, chills, fatigue, malaise Gastrointestinal: denies abdominal pain, ulcers, or changes in appetite or bowel habits Musculoskeletal: denies arthritis, denies loss of strength, pain to hip, knees, back Cardiovascular: denies CP, palpitations, irregular rhythms OBJECTIVE LE EXAM: DERM: Positive hair growth to b/l feet with good skin turgor noted. Negative openings in skin VASC: Palpable pedal pulsed b/l with warm to cool tibia to toes b/l NEURO: Gross sensation intact digits 1-10 and b/l feet ORTHO: +5/5 DF/PF/IN/EV right, +5/5 DF/PF/IN/EV left. 20 degrees inversion and 10 degrees eversion STJ b/l. Ankle ROM less than 10 degrees b/l. positive pain on palpation to right navicular tuberosity near insertion of the posterior tibial tendon and navicular insertion point significant pain with direct palpation of the medial talar dome pain with range of motion of the ankle with mild crepitus noted. Mild swelling circumferentially around the ankle ASSESSMENT 1. Solitary bone cyst of right foot 2. Osteochondritis dissecans of right ankle 3. Other synovitis and tenosynovitis, right ankle and foot PLAN Reviewed MRI today with patient Patient to continue with oral anti - inflammatories as needed for pain and recommended OTC medications such as tylenol or Ibuprofen she is to continue with a pneumatic walking boot. Discussed with the patient performing a diagnostic/therapeutic ankle arthroscopy with debridement of the ankle joint synovitis and the osteochondral defect of the medial talar dome. The patient was educated on the pre, christine, postoperative course of the procedure in great detail. We discussed further conservative therapies which the patient has attempted and has failed. I discussed the surgical procedure in great detail including the risks and possible complications. We discussed the following complications in great detail including but not limited to: Pain, infection, prolonged swelling, numbness, tingling, burning, nonhealing wound, nonunion, malunion, chronic pain, development of complex regional pain syndrome, development of deep venous thrombosis. Patient fully understood all possible risks and complications. All questions have been asked and answered. They have consented for the above-stated procedure. RAJEEV Bazzi documented in this encounter [facility] 09-06-2024 History of Present illness Narrative Patient: Tiara Parikh : 1985 PCP: Sherin House MD SUBJECTIVE This is a 38 y.o. female that presents today for history of right ankle sprain. She had been wearing a walking boot and taking oral steroid with some improvement. Patient rates pain a 10/27 Patient also presents today for MRI follow-up of right cyst to the navicular of unknown significance. Allergies: No Known Allergies Past Medical History: Past Medical History: Diagnosis Date Difficulty walking 07-17-24 Hepatitis Plantar fasciitis Substance abuse Medications: Current Outpatient Medications: Abilify 30 MG tablet, , Disp: , Rfl: methylPREDNISolone (Medrol Dospak) 4 MG tablets, Follow schedule on MEDROL PACK package instructions to be used as directed, Disp: 21 tablet, Rfl: 0 Mobic 15 MG tablet, , Disp: , Rfl: Social History: Social History Socioeconomic History Marital status: Spouse name: Not on file Number of children: Not on file Years of education: Not on file Highest education level: Not on file Occupational History Not on file Tobacco Use Smoking status: Every Day Smokeless tobacco: Never Substance and Sexual Activity Alcohol use: Not Currently Drug use: Not Currently Types: Amphetamines, Fentanyl, Heroin, Hydrocodone, Marijuana, MDMA (Ecstasy), Methamphetamines, Oxycodone, Psilocybin Sexual activity: Yes Partners: Male control/protection: Female Sterilization Other Topics Concern Not on file Social History Narrative Not on file Social Drivers of Health Financial Resource Strain: Not on file Food Insecurity: Not on file Transportation Needs: Not on file Physical Activity: Not on file Stress: Not on file Social Connections: Not on file Intimate Partner Violence: Not on file Housing Stability: Not on file ROS: General: denies fever, chills, fatigue, malaise Gastrointestinal: denies abdominal pain, ulcers, or changes in appetite or bowel habits Musculoskeletal: denies arthritis, denies loss of strength, pain to hip, knees, back Cardiovascular: denies CP, palpitations, irregular rhythms OBJECTIVE LE EXAM: DERM: Positive hair growth to b/l feet with good skin turgor noted. Negative openings in skin VASC: Palpable pedal pulsed b/l with warm to cool tibia to toes b/l NEURO: Gross sensation intact digits 1-10 and b/l feet ORTHO: +5/5 DF/PF/IN/EV right, +5/5 DF/PF/IN/EV left. 20 degrees inversion and 10 degrees eversion STJ b/l. Ankle ROM less than 10 degrees b/l. positive pain on palpation to right navicular tuberosity near insertion of the posterior tibial tendon and navicular insertion point XRAY:XR foot 3+ views right Imaging Result: Notable large cyst-like region to navicular tuberosity with negative fracture identified XR ankle 3+ views right Imaging Result: Negative fractures identified with negative osteochondral defects with notable small navicular dorsal chip fracture which may be old in nature MRI: EXAM: MR FOOT RIGHT WO IV CONTRAST [...] lesion. ELECTRONICALLY SIGNED BY: Zia Alexander DO ASSESSMENT 1. Sprain of anterior talofibular ligament of right ankle, initial encounter 2. Contracture of right ankle 3. Solitary bone cyst of right foot 4. Osteochondritis dissecans of right ankle PLAN Reviewed MRI today with patient Patient to continue with oral anti - inflammatories as needed for pain and recommended OTC medications such as tylenol or Ibuprofen Continue with cam walker Referral to Dr. Mtaa for possible surgical consultation Yared Terrazas DPM documented in this encounter [facility] 08-29-2024 History of Present illness Narrative Patient: Tiara Parikh : 1985 PCP: Sherin House MD SUBJECTIVE This is a 38 y.o. female that presents today for history of right ankle sprain. She had been wearing a walking boot and taking oral steroid with some improvement. Patient rates pain a 10/27 Patient also presents today for MRI follow-up of right cyst to the navicular of unknown significance. MRI tonight [facility] therefore sent to [facility] Allergies: No Known Allergies Past Medical History: Past Medical History: Diagnosis Date Difficulty walking 07-17-24 Hepatitis Plantar fasciitis Substance abuse Medications: Current Outpatient Medications: Abilify 30 MG tablet, , Disp: , Rfl: methylPREDNISolone (Medrol Dospak) 4 MG tablets, Follow schedule on MEDROL PACK package instructions to be used as directed, Disp: 21 tablet, Rfl: 0 Mobic 15 MG tablet, , Disp: , Rfl: Social History: Social History Socioeconomic History Marital status: Spouse name: Not on file Number of children: Not on file Years of education: Not on file Highest education level: Not on file Occupational History Not on file Tobacco Use Smoking status: Every Day Smokeless tobacco: Never Substance and Sexual Activity Alcohol use: Not Currently Drug use: Not Currently Types: Amphetamines, Fentanyl, Heroin, Hydrocodone, Marijuana, MDMA (Ecstasy), Methamphetamines, Oxycodone, Psilocybin Sexual activity: Yes Partners: Male control/protection: Female Sterilization Other Topics Concern Not on file Social History Narrative Not on file Social Drivers of Health Financial Resource Strain: Not on file Food Insecurity: Not on file Transportation Needs: Not on file Physical Activity: Not on file Stress: Not on file Social Connections: Not on file Intimate Partner Violence: Not on file Housing Stability: Not on file ROS: General: denies fever, chills, fatigue, malaise Gastrointestinal: denies abdominal pain, ulcers, or changes in appetite or bowel habits Musculoskeletal: denies arthritis, denies loss of strength, pain to hip, knees, back Cardiovascular: denies CP, palpitations, irregular rhythms OBJECTIVE LE EXAM: DERM: Positive hair growth to b/l feet with good skin turgor noted. Negative openings in skin VASC: Palpable pedal pulsed b/l with warm to cool tibia to toes b/l NEURO: Gross sensation intact digits 1-10 and b/l feet ORTHO: +5/5 DF/PF/IN/EV right, +5/5 DF/PF/IN/EV left. 20 degrees inversion and 10 degrees eversion STJ b/l. Ankle ROM less than 10 degrees b/l. positive pain on palpation to right navicular tuberosity near insertion of the posterior tibial tendon and navicular insertion point XRAY:XR foot 3+ views right Imaging Result: Notable large cyst-like region to navicular tuberosity with negative fracture identified XR ankle 3+ views right Imaging Result: Negative fractures identified with negative osteochondral defects with notable small navicular dorsal chip fracture which may be old in nature MRI: Await MRI results ASSESSMENT 1. Sprain of anterior talofibular ligament of right ankle, initial encounter 2. Solitary bone cyst of right foot 3. Contracture of right ankle PLAN Will order MRI for bone cyst right navicular Patient to continue with oral anti - inflammatories as needed for pain and recommended OTC medications such as tylenol or Ibuprofen Continue with cam walker with MRI in near future and will place on steroid pack Yared Terrazas DPM documented in this encounter [facility] 08-08-2024 History of Present illness Narrative Patient: Tiara Parikh : 1985 PCP: Sherin House MD SUBJECTIVE This is a 38 y.o. female that presents today for a chief complaint of pain to her right foot for the past 5-6 weeks and rates it up to a 5/10 has taking Mobic with minimal improvement. She states she can not recall exact mechanism of injury and may have twisted it and states that she had continuous pain particularly with 1st steps in the morning. Allergies: Not on File Past Medical History: Past Medical History: Diagnosis Date Difficulty walking 3-30-25 Plantar fasciitis Substance abuse Medications: No current outpatient medications on file. Social History: Social History Socioeconomic History Marital status: Spouse name: Not on file Number of children: Not on file Years of education: Not on file Highest education level: Not on file Occupational History Not on file Tobacco Use Smoking status: Every Day Smokeless tobacco: Never Substance and Sexual Activity Alcohol use: Not Currently Drug use: Not Currently Types: Amphetamines, Fentanyl, Heroin, Hydrocodone, Marijuana, MDMA (Ecstasy), Methamphetamines, Oxycodone, Psilocybin Sexual activity: Yes Partners: Male control/protection: Female Sterilization Other Topics Concern Not on file Social History Narrative Not on file Social Drivers of Health Financial Resource Strain: Not on file Food Insecurity: Not on file Transportation Needs: Not on file Physical Activity: Not on file Stress: Not on file Social Connections: Not on file Intimate Partner Violence: Not on file Housing Stability: Not on file ROS: General: denies fever, chills, fatigue, malaise Gastrointestinal: denies abdominal pain, ulcers, or changes in appetite or bowel habits Musculoskeletal: denies arthritis, denies loss of strength, pain to hip, knees, back Cardiovascular: denies CP, palpitations, irregular rhythms OBJECTIVE LE EXAM: DERM: Positive hair growth to b/l feet with good skin turgor noted. Negative openings in skin VASC: Palpable pedal pulsed b/l with warm to cool tibia to toes b/l NEURO: Gross sensation intact digits 1-10 and b/l feet ORTHO: +5/5 DF/PF/IN/EV right, +5/5 DF/PF/IN/EV left. 20 degrees inversion and 10 degrees eversion STJ b/l. Ankle ROM less than 10 degrees b/l. Positive pain on palpation to right navicular tuberosity near insertion of the posterior tibial tendon and navicular insertion point XRAY:XR ankle 3+ views right Imaging Result: Negative fractures identified with negative osteochondral defects with notable small navicular dorsal chip fracture which may be old in nature XR foot 3+ views right Imaging Result: Notable large cyst-like region to navicular tuberosity with negative fracture identified XR ankle 3+ views right Imaging Result: Negative fractures identified with negative osteochondral defects with notable small navicular dorsal chip fracture which may be old in nature US: ASSESSMENT 1. Sprain of anterior talofibular ligament of right ankle, initial encounter 2. Solitary bone cyst of right foot 3. Contracture of right ankle PLAN Will order MRI for bone cyst right navicular Pt dispensed pneumatic CAM walker ([id number]) today to maintain 90 degree foot to ankle position. Pt informed to only remove walker when at rest or bathing. ABN signed and in chart for device if warranted. The boot was assembled and adjusted liner and straps and pneumatically inflated for proper custom fitting by Yared Terrazas DPM and staff. A verbal order was given for dispensing of device. The patient is ambulatory and may benefit functionally from this device. It may be used for the following conditions as noted per medical diagnosis. Prescription today for Medrol pack Recommended to apply ice to affected areas for 20 minutes, twice daily. Ice should not be applied directly to skin. Yared Terrazas DPM documented in this encounter [facility] 07-17-2024 Note [employer] Orthopedics Foot Sprain A foot sprain is an injury to one of the ligaments in the feet. Ligaments are strong tissues that connect bones to each other. The ligament can be stretched too much. In some cases, it may tear. A tear can be either partial or complete. The severity of the sprain depends on how much of the ligament was damaged or torn. What are the causes? This condition is usually caused by suddenly twisting or pivoting your foot. What increases the risk? You are more likely to develop this condition if: ? You play a sport, such as basketball or football. ? You exercise or play a sport without first warming up your muscles. ? You start a new workout or sport. ? You suddenly increase how long or hard you exercise or play a sport. ? You have injured your foot or ankle before. What are the signs or symptoms? Symptoms of this condition start soon after an injury and include: ? Pain, especially in the arch of your foot. ? Bruising. ? Swelling. ? Being unable to walk or use your foot to support body weight. How is this diagnosed? This condition is diagnosed with a medical history and physical exam. You may also have imaging tests, such as: ? X-rays to check for broken bones (fractures). ? An MRI to see if the ligament is torn. How is this treated? Treatment for this condition depends on the severity of the sprain. Mild sprains and major sprains can be treated with: ? Rest, ice, pressure (compression), and elevation (RICE). Elevation means raising your injured foot. ? Keeping your foot in a fixed position (immobilization) for a period of time. This is done if your ligament is overstretched or partially torn. Your health care provider will apply a bandage, splint, or walking boot to keep your foot from moving until it heals. ? Using crutches or a scooter for a few weeks to avoid bearing weight on your foot while it is healing. ? Physical therapy exercises to improve movement and strength in your foot. Major sprains may also be treated with: ? Surgery. This is done if your ligament is fully torn and a procedure is needed to reconnect it to the bone. ? A cast or splint. This will be needed after surgery. A cast or splint will need to stay on your foot while it heals. Follow these instructions at home: If you have a bandage, splint, or boot: ? Wear it as told by your health care provider. Remove it only as told by your health care provider. ? Loosen it if your toes tingle, become numb, or turn cold and blue. ? Keep it clean and dry. If you have a cast: ? Do not put pressure on any part of the cast until it is fully hardened. This may take several hours. ? Do not stick anything inside the cast to scratch your skin. Doing that increases your risk for infection. ? Check the skin around the cast every day. Tell your health care provider about any concerns. ? You may put lotion on dry skin around the edges of the cast. Do not put lotion on the skin underneath the cast. ? Keep it clean and dry. Bathing ? Do not take baths, swim, or use a hot tub until your health care provider approves. Ask your health care provider if you may take showers. You may only be allowed to take sponge baths. ? If the bandage, splint, boot, or cast is not waterproof: ? Do not let it get wet. ? Cover it with a watertight covering when you take a bath or shower. Managing pain, stiffness, and swelling ? If directed, put ice on the injured area. To do this: ? If you have a removable bandage, splint, or boot, remove it as told by your health care provider. ? Put ice in a plastic bag. ? Place a towel between your skin and the bag, or between your cast and the bag. ? Leave the ice on for 20 minutes, 2?3 times per day. ? Remove the ice if your skin turns bright red. This is very important. If you cannot feel pain, heat, or cold, you have a greater risk of damage to the area. ? Move your toes often to reduce stiffness and swelling. ? Elevate the injured area above the level of your heart while you are sitting or lying down. Activity ? Do not use the injured foot to support your body weight until your health care provider says that you can. Use crutches or a scooter as told by your health care provider. ? Ask your health care provider what activities are safe for you. Do exercises as told by your health care provider. ? Gradually increase how much and how far you walk until your health care provider says it is safe to return to full activity. Driving ? Ask your health care provider if the medicine prescribed to you requires you to avoid driving or using machinery. ? Ask your health care provider when it is safe to drive if you have a bandage, splint, boot, or cast on your foot. General instructions ? Take [id number] and prescription medicines only as told by your health care provider. ? When you can walk without pain, w (more content not included)... [facility] 12-17-2023 Hospital Discharge instructions Johnathon Booth RN - 12/17/2023 7:02 AM EDT Images from the original note were not included. Patient Discharge Instructions Discharge Date: 12/17/2023 HYGEINE: Ok to shower, no soaking in a tub/pool until seen at your follow up appointment. Clean incision daily with gentle soap and water, do not use alcohol/peroxide or any harsh cleansers. You will have Dermabond, a surgical glue, over your incisions. Leave this intact, it will peel off on its own in the next few weeks. If the edges lift, you may trim them. DRIVING: No driving while taking narcotic medications or while in pain ACTIVITY: No lifting greater than 10lbs for 6 weeks or any strenuous activity. DIET: Resume your normal diet as advised by your PCP. MEDICATIONS: Take all medications as prescribed. Take Tylenol and ibuprofen as tolerated for pain. You have also been given a prescription for a muscle relaxant and narcotic. Take the muscle relaxant as prescribed. Take the narcotic as needed for severe pain not relieved with the other medications. You may also use ice to your surgical sites. SPECIAL INSTRUCTIONS: Follow up with Dr. Benitez in 10-14 days, call the clinic for appointment. Call sooner if fever above 100.4 degrees Farenheit, increase in swelling or redness, thick purulent discharge or pain not controlled with medications. No alcoholic beverages, no driving or operating machinery, no making important decisions for 24 hours. You may have a normal diet but should eat lightly day of surgery. Drink plenty of fluids. Urinate within 8 hours after surgery, if unable to urinate call your doctor documented in this encounter [facility] 12-03-2023 History of Present illness Narrative Patient very upset. Did not wait for indefinite amount of time for surgery time.Lead RN notified and during notification of manufacturing team leader, patient removed own iv and stormed out of unit cussing. documented in this encounter [facility] 12-03-2023 Hospital Discharge instructions Emma Smith MD - 12/03/2023 5:14 AM EDT General Surgery Patient Discharge Instructions Discharge Date: 12/03/2023 RESUME ACTIVITY: WOUND CARE: Skin glue used, do not peel off, allow to fall off naturally. BATHING: Ok to shower DRIVING: No driving while on pain medication RETURN TO WORK: As tolerated WALKING: Yes LIFTING: Less than 10 pounds for 4 weeks DIET: Ok to resume regular diet. MEDICATIONS: Take medications as prescribed by physician. For adequate pain control, take tylenol and motrin in alternating cycles (e.g. take 500mg tylenol at 8am, take 400mg motrin at 12pm, take 500mg tylenol at 4pm, take 400mg motrin at 8pm, etc.). If prescribed narcotic medications (Axis, Percocet, or Roxicodone), use for breakthrough pain and attempt to wean off medications as soon as possible. Do not take more than 4000mg tylenol in 24 hours. SPECIAL INSTRUCTION: Call the office at [phone] if you develop fevers, chills, uncontrolled nausea, vomiting. Monitor incisions for signs of redness or green discharge. Please follow-up in approximately 2 weeks after surgery for your postop evaluation. Office Address: [address] [place], [place] [id number] documented in this encounter [facility] 11-21-2023 Hospital Discharge instructions Favio Devlin DO - 11/21/2023 7:25 PM EDT Seen in the emergency department for concerns for abdominal/inguinal hernia. CT imaging showing a small umbilical hernia. Previous left inguinal hernia repair also visualized. Labs unremarkable. Discussed case with general surgery who recommended outpatient follow-up. No immediate surgical intervention necessary. Given Percocet prescription to go home with. You state that you have Tylenol Motrin at home. Please follow-up with the general surgery team within the next 2 to 3 days. Please return the emergency department if you develop worsening symptoms, abdominal pain, vomiting, numbness and tingling in your 4 extremities, episodes of passing out, or any other concerning symptoms The following attachments cannot be sent through Care Everywhere.Inguinal Hernia (Norwegian)documented in this encounter [facility] 12-13-2022 Note Microbiology PROCEDURE: Wound Culture [R1] SOURCE: Abscess BODY SITE: Breast COLLECTED DATE/TIME: 12/11/2022 14:21 EDT RECEIVED DATE/TIME: 12/11/2022 17:15 EDT START DATE/TIME: 12/11/2022 17:15 EDT FREE TEXT SOURCE: right breast subareolar abscess MYA TEMPLE, Miguelina ROQUE MD, Miguelina Swanson FINAL REPORTS Final Report [] Verified Date/Time: 12/13/2022 14:20 EDT 1+ Enterococcus faecalis 1+ Bacteroides species Presumptive STAINS Gram Stain Report [] Verified Date/Time: 12/12/2022 14:27 EDT 2+ White Blood Cells 1+ Gram Positive Cocci SUSCEPTIBILITY RESULTS ____ LEGEND: S=Susceptible, N/R=Not Reported, Blank=Data not available, or drug not advisable or tested, I=Intermediate, ESBL=Extended spectrum beta-lactamase, R=Resistant, TFG=Thymidine-dependent strain, HEAVENLY=Beta-lactamase positive, CHARANJIT=mcg/m;(mg/L), S*=Predicted susceptible interp, R*=Predicted resistant interp Entfaeca Antibiotic CHARANJIT Dilutn CHARANJIT Interp Ampicillin <=2 S Daptomycin <=1 S Erythromycin >4 R Linezolid <=2 S Penicillin 2 S Rifampin <=1 S Vancomycin 2 S Performing Locations R1: This test was performed at: [facility], [address] [place] [address], [id number] , , [facility] Comment on above: Performed By: #### 2 [id number] ####Noriega [facility] [address] [place] [address] 12-11-2022 Note Chief Complaint consultation for recurrent breast abscess HPI Staff Presents with complaint of recurrent breast abscess. Reports she developed redness and pain on Thursday. She presented to [facility] ED Thursday and was given prescriptions for Augmentin 875mg BID x 14 days and Clindamycin 300mg q6 hours x 14 days. Presented to PCP office yesterday and was given IM Rocephin and Augmentin changed to Cipro. History of Present Illness recurrent breast pain and cellulitis; began 3 days ago, began antibiotics 2 days ago; increased pain and swelling; had aspiration of right breast abscess 1 month ago, with resolution of symptoms; patient had Enterococcus faecalis on cx at that time; h/o frequent, recurrent abscesses; had nipple piercing in the past; vapes nicotine-containing substance. Review of Systems PHQ Score Initial Depression Screen Score: 0 ROS - Provider Constitutional: no fever, no sweats, no weight loss. Eyes: no glasses, no blurred vision, no visual loss. ENMT: no dentures, no hoarseness, no swallowing difficulties, no hearing loss, no ear infection(s), no nose bleeds. Cardiovascular: normal blood pressure, no chest pain, regular heartbeat, no heart murmur. Respiratory: no shortness of breath, no cough, no asthma, no wheezing. Gastrointestinal: no nausea, no vomiting, no diarrhea, no constipation, no blood in stool, no change in bowel habits, no abdominal pain, no hepatitis. Genitourinary: no kidney stones, no urine infection, no dysuria. Musculoskeletal: no pain, no weakness. Skin: no changing moles, no rash, no skin lumps. Neurologic: no seizures, no epilepsy, no headache. Psychiatric: no emotional or psychiatric problem. Heme/Lymph: no bleeding problems, no anemia, no blood clots, no transfusions. Allergy/Immunologic: no swollen lymph nodes/glands, no IV drug abuse. Other: Additional ROS info: Except as noted in the above Review of Systems and in the History of Present Illness, all other systems have been reviewed and are negative or noncontributory. Physical Exam Vitals & Measurements HR: 72(Peripheral) RR: 16 BP: 126/84 HT: 67 in HT: 170 cm WT: 114 kg WT: 250.8 lb BMI: 39.45 skin: cellulitis of right breast with induration/fluctuance medial nipple; no skin necrosis or drainage. Assessment/Plan 1. Abscess of right breast unrelated to or (N61.1: Abscess of the breast and nipple) aspirated under local anesthesia for 9 ml of thick purulent fluid; sent for cx; sterile gauze/abd applied; tolerated well; continue antibiotics; f/U early next week, call sooner if problems/questions. Ordered: Wound Culture Follow-up No qualifying data available Problem List/Past Medical History Ongoing Abscess of right breast unrelated to or Anemia Bipolar disorder BMI 39.0-39.9,adult Cannabis abuse Chronic hepatitis C Crohn's disease Depression Eczema Heroin abuse Herpes Insomnia Left inguinal hernia Lumbar radiculopathy Mixed incontinence Morbid obesity Overactive bladder Polysubstance abuse Schizoaffective schizophrenia Sleep walking disorder Smoker Vapes nicotine containing substance Historical Crohn disease Drug abuse Flank pain Frequency of urination Urinary frequency Procedure/Surgical History Abdominal hysterectomy, Appendectomy, section, Cholecystectomy, Colonoscopy, EGD - Esophagogastroduodenoscopy, Essure., Laparoscopy, Ovarian cystectomy. Medications Abilify 20 mg oral tablet, 20 mg= 1 tab(s), Oral, Daily gabapentin 800 mg Tab, Oral, TID Myrbetriq 50 mg oral tablet, extended release, 50 mg= 1 tab(s), Oral, Daily, 11 refills Strattera 80 mg oral capsule, 80 mg= 1 cap(s), Oral, qAM Suboxone 8 mg-2 mg sublingual film, SubLingual, Daily Valtrex 1 g Tab, 1 gm= 1 tab(s), Oral, Daily Zofran ODT 4 mg Tab-Dis, 4 mg= 1 tab(s), Oral, q8hr, Not taking Allergies Elavil (Rash) NSAIDs (Anaphylactic reaction) Pristiq (Rash) Topamax (Unknown) cephalexin (Unknown) erythromycin (Anaphylactic reaction) morphine (Unknown) sulfamethoxazole-trimethoprim (Unknown) Social History Alcohol - Denies Alcohol Use, 11/06/2016 Substance Abuse - Medium Risk, 08/06/2022 Current, Marijuana, IV drug use: No. Drug use interferes with work/home: Yes. Household substance abuse concerns: No., 08/06/2022 Tobacco - High Risk, 11/06/2016 Former smoker, quit more than 30 days ago Tobacco Use:. Smokeless tobacco user within last 30 days Smokeless Tobacco Use:. Cigarettes, Vaping, Started age 21.0 Years. Yes, 11/11/2022 Family History Arthritis: Mother. Asthma: Mother. COPD: Mother. Cervical cancer: Grandparent. Diabetes mellitus type 1: Mother. Diabetes mellitus type 2: Father. Heart disease: Mother and Brother. Hypertension: Mother. Osteoporosis: Mother. Uterine cancer: Grandparent. Immunizations Vaccine Date Status Comments influenza virus vaccine, inactivated - Not Given Patient Refuses DALIA (more content not included)... [facility] Comment on above: Result Comment: Elec tronically Signed By: MYA TEMPLE, Miguelina Solis\Date and Time Signed: 12/11/22 14:27 EDT 09-02-2022 Note PROCEDURE: XR FOOT L T MIN 3 VIEWS HISTORY: Pain in left foot ; chronic dorsal foot pain COMPARISON: None. FINDINGS: BONES:No fracture, acute abnormality, or significant arthropathy. SOFT TISSUES:No visible soft tissue swelling. EFFUSION:None visible. OTHER: Negative. IMPRESSION: No acute bone abnormality or appreciable degenerative changes. Electronically authenticated by: DARRICK GIBBS Date: 2022-09-02 10:54 [facility] 08-06-2022 Note Chief Complaint consultation for left inguinal hernia HPI Staff 36 year old female presents on consultation from Dr. House for enlarging left inguinal bulge. Reports she noted bulge March 2022. States this has gradually increased in size with significant increase over the past 2 weeks. Reports tugging/pulling sensation, primarily with lifting. CT abdomen/pelvis completed 07/09 with fat containing left inguinal hernia. History of Present Illness 36 yo female with h/o bipolar disorder, Crohn's disease, eczema, polysubstance abuse, on Suboxone, chronic hepatitis C, referred for possible left inguinal hernia; patient reports several month h/o bulge in LLQ, initially small, but increased with lifting and straining; pulling sensation, no pain, no skin changes, no N/V or bowel changes; recent ct scan read as fat-containing left inguinal hernia; abdominal operation significant for , LS hysterectomy, appendectomy, cholecystectomy, laparoscopy x 2; patient does do heavy lifting for her job; vapes nicotine containing substances. Review of Systems PHQ Score Initial Depression Screen Score: 0 ROS - Provider Constitutional: no fever, no sweats, no weight loss. Eyes: no glasses, no blurred vision, no visual loss. ENMT: no dentures, no hoarseness, no swallowing difficulties, no hearing loss, no ear infection(s), no nose bleeds. Cardiovascular: normal blood pressure, no chest pain, regular heartbeat, no heart murmur. Respiratory: no shortness of breath, no cough, no asthma, no wheezing. Gastrointestinal: no nausea, no vomiting, no diarrhea, no constipation, no blood in stool, no change in bowel habits, no abdominal pain, no hepatitis. Genitourinary: no kidney stones, no urine infection, no dysuria. Musculoskeletal: no pain, no weakness. Skin: no changing moles, no rash, no skin lumps. Neurologic: no seizures, no epilepsy, no headache. Psychiatric: no emotional or psychiatric problem. Heme/Lymph: no bleeding problems, no anemia, no blood clots, no transfusions. Allergy/Immunologic: no swollen lymph nodes/glands, no IV drug abuse. Other: Additional ROS info: Except as noted in the above Review of Systems and in the History of Present Illness, all other systems have been reviewed and are negative or noncontributory. Physical Exam Vitals & Measurements HR: 70(Peripheral) RR: 16 BP: 122/84 HT: 67 in HT: 170 cm WT: 118 kg WT: 259.6 lb BMI: 40.83 HEENT: normal conjunctiva, sclera clear, no scleral icterus, EOM intact, PERRLA, oral mucosa moist without lesions. Neck: trachea midline, no mass, symmetric, no thyromegaly or nodules, no adenopathy Respiratory: lungs CTA, respirations non labored. Cardiovascular: regular rate and rhythm, no murmur, no pedal edema or varicosities. Gastrointestinal:examined in upright and supine positions; obese, well-healed multiple abd scars; , non distended, no tenderness, no masses, no palpable hernias, no palpable fascial defect; diastasis recti no, no hepatosplenomegaly; normal bs Lymphatic: no cervical adenopathy, no inguinal adenopathy. Musculoskeletal: normal gait, digits and nails without infection, nodes, cyanosis, clubbing. Skin: no rashes, no lesions, no ulcers, no subcutaneous nodules, induration. Psychiatric/Neuro: oriented to time, place, person, judgement normal, affect appropriate for age, insight intact, no focal deficits. Tests: labs reviewed, x-rays reviewed, review of old records completed, Assessment/Plan 1. Left inguinal hernia (K40.90: Unilateral inguinal hernia, without obstruction or gangrene, not specified as recurrent) tiny defect on ct, with preperitoneal fat in inguinal canal, not a true hernia; would not recommend repair at this time due to obesity and nicotine use which would increase complications and recurrence rate; recommend binder;support belt with lifting to minimize irritation; stop nicotine products, as well as weight loss; call with problems/questions; signs/symptoms of incarceration/strangulation of hernia explained in detail, and patient understands that he should seek prompt medical evaluation if they were to occur. 2. BMI 40.0-44.9, adult (Z68.41: Body mass index [BMI] 40.0-44.9, adult) recommend diet and exercise. 3. Vapes nicotine containing substance (Z72.0: Tobacco use) We strongly recommend to quit tobacco use. Cigarette smoking harms nearly every organ of the body, causes many diseases, and reduces the health of smokers in general. Quitting smoking lowers your risk for smoking-related diseases and can add years to your life. We encourage you to visit www.smokefree.gov access to helpful resources including free telephone support. If you decide on prescription treatment to help you quit, your family doctor would be happy to provide these. Follow-up No qualifying data available Problem List/Past Medical History Ongoing Anemia Bipolar disorder BMI 40.0-44.9, adult Cannabis abuse Chronic hepatitis C Crohn's disease Depression (more content not included)... [facility] Comment on above: Result Comment: Elec tronically Signed By: MYA TEMPLE, Miguelina Solis\Date and Time Signed: 08/06/22 21:16 EDT 04-03-2022 Note OPERATIVE NOTE OPERATION DATE: 04/03/2022 PROCEDURE: Diagnostic laparoscopy with left ovarian cystotomy. PREOPERATIVE DIAGNOSIS: Pelvic pain. POSTOPERATIVE DIAGNOSIS: Pelvic pain. ANESTHESIA: General. SURGEON: Justino Dias D.O. RACE STEWARD: Gosia Yolanda, MANAGER INTERMEDIATE URINE OUTPUT: Yellow and clear. BLOOD LOSS: 5 mL. SPECIMEN: None. FINDINGS: Absent uterus and tubes. Normal appearing ovaries, except for a small left ovarian cyst. Evidence of appendectomy seen. Otherwise, very clear vaginal cuff. No adhesions could be seen. PROCEDURE: The patient was taken back to the Operating Room where she was placed in dorsal lithotomy position after given general anesthesia. The patient was prepped and draped in normal sterile fashion. A sponge stick was placed into the patient's vagina. Attention was turned to the patient's abdomen, where a small umbilical incision was made. The fascia was tented using Nicki clamps and the fascia was entered sharply. Confirmation of intra-abdominal placement of the 10 mm port was confirmed under direct visualization using a laparoscope. The patient's abdomen was then insufflated using CO2 gas with approximately 4 liters. A second port was placed left laterally. This was done under direct visualization with a 5 mm port. Survey of the patient's abdomen demonstrated normal liver and gallbladder. Survey of the patient's pelvic anatomy demonstrated normal appearing ovaries, except for a small left ovarian cyst and absent tubes and uterus. The monopolar scissors were used to make a small cystotomy on the left ovary. No endometrial implants could be noted, no evidence of any pelvic disease was seen, normal appearing pelvic cavity. All instruments were removed from the patient's abdomen. The patient's abdomen was desufflated of CO2 gas. The patient tolerated the procedure well. Sponge stick was removed from the patient's vagina. The patient's infraumbilical fascia was closed using #0 Vicryl on a GI needle. The patient's skin was closed laterally and infraumbilically using 4-0 Vicryl. The patient tolerated the procedure well. Sponge, lap and needle counts were correct x 2. The patient was taken to Recovery Room in stable condition. ? [facility] 02-19-2021 Evaluation note Encounter Date Diagnosis Assessment Notes Feb, Hepatitis C (ICD-10 - B19.20) THIS PATIENT IS A GOOD CANDIDATE FOR THERAPY HE / SHE IS MOTIVATED AND AGREES TO PROCEED WITH THERAPY THE PATIENT READINESS CONSENT WAS DISCUSSED AND SIGNED BY PATIENT AND PHYSICIAN HE / SHE DOES NOT HAVE ANY LIMITED LIFE EXPECTACNCY DUE TO NON LIVER COMORBITIES AND AGREES TO RNA TESTING Q 4 WEEKS WHILE ON THERAPY [employer] Other 11-02-2021 Evaluation note* Encounter Date Diagnosis Assessment Notes Treatment Notes Treatment Clinical Notes Feb, Hepatitis C (ICD-10 - B19.20) [employer] Other Evaluation + Plan note No data available for this section General Surgery [place] Evaluation + Plan note Future Appointments Appointment Date:12/16/2022 04:00:00 PM Scheduled Provider:Miguelina ROQUE MD Location:[facility] Appointment Type:GS Established [address] [facility] General Surgery [place] Evaluation + Plan note Future Appointments Appointment Date:12/16/2022 04:00:00 PM Scheduled Provider:Miguelina ROQUE MD Location:[facility] Appointment Type: Established 15 Diagnostic Tests Pending * [facility]ments Appointment Date:02/04/2023 01:00:00 PM Scheduled Provider:Miguelina ROQUE MD Location:[facility] Appointment Type:GS Post Op 15 General Surgery [place] evaluation noteNo assessment information available [facility] Work Phone: evaluation note* Diagnosis Umbilical hernia without obstruction and without gangrene- Primary Left inguinal hernia Inguinal hernia without mention of obstruction or gangrene, unilateral or unspecified, (not specified as recurrent) documented in this encounter [facility] [employer]* Diagnosis H/O umbilical hernia repair- Primary Personal history of surgery to other organs H/O umbilical hernia repair Personal history of surgery to other organs S/P left inguinal hernia repair Other postprocedural status documented in this encounter [facility] [employer]* Diagnosis Sprain of anterior talofibular ligament of right ankle, initial encounter- Primary 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 documented in this encounter [facility]* Diagnosis Sprain of anterior talofibular ligament of right ankle, initial encounter- Primary 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 documented in this encounter [facility]* Diagnosis Sprain of anterior talofibular ligament of right ankle, initial encounter- Primary Contracture of right ankle 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 documented [facility]* Diagnosis Osteochondritis dissecans of right ankle- Primary Solitary bone cyst of right foot Other synovitis and tenosynovitis, right ankle and foot documented in this [facility] Narrative - Reported* Type Description Date Medical History depression Medical History migraines Medical History affective bipolar disorder Medical History fibromyalgia and rheumatoid art hritis Medical History grand mal seizure di sorder last seizure 2014 per patient Medical History migraine syndrome Medical History rheumatoid arthritis Medical History opiate addiction, in recovery fo r 2 years Medical History sleep walking Surgical History gall bladder 11/2010 Surgical History Surgical History tubes in ears child Surgical History Hysterectomy 03/06/15 Surgical History Apendectomy 06/2015 Surgical History Colonoscopy 2009 Surgical History EGD 2009 Hospitalization History See Above [employer] Other Hospital Discharge instructions No data available for this section General Surgery [employer] Progress note No data available for this section [facility] [employer] [facility] Summary Purpose Family History Relationship Condition Age at Onset Recorded Date/T boy Not Specified No pertinent family history Unknown father Unknown Advance Directives Advance Directive Response Recorded Date/ Time Advance Directives No December 10, 2017 6:56pm Latest Code Status on File Code Status Date Activated Date Inactivated Comments Full Code 01/25/2013 8:42 AM 01/25/2013 1:31 PM Date Activated Date Inactivated Comments 01/25/2013 8:42 AM 01/25/2013 1:31 PM Chief Complaint and Reason for Visit Chief Complaint Abd pain Additional Source Comments REASON FOR VISIT (unrecogniz ed section and content) Reason Comments Abdominal Pain Specialty Diagnoses / Procedures Referred By Contac t Referred To Contact Diagnoses Umbilical hernia without obstruction and without gangrene Inguinal hernia of left side without obstruction or gangrene Umbilical hernia without obstruction and without gangrene [K42.9] Inguinal hernia of left side without obstruction or gangrene [K40.90] Procedures MI RPR 1ST INGUN HRNA AGE 5 YRS/> REDUCIBLE MI RPR AA HERNIA RECR < 3 CM NCRC8/STRANGULATED OPEN UMBILICAL HERNIA REPAIR, OPEN LEFT INGUINAL HERNIA REPAIR, MESH Darrick Benitez MD [address] [facility] [address] [place] [address] [facility] [address] [place] [address] Referral ID Status Reason Start Date Expiration Date Visits Re quested Visits Authorized [id number] 1 1 Specialty Diagnoses / Procedures Referred By Contac t Referred To Contact Diagnoses Umbilical hernia without obstruction and without gangrene Inguinal hernia without obstruction or gangrene, recurrence not specified, unspecified laterality Umbilical hernia without obstruction and without gangrene [K42.9] Inguinal hernia without obstruction or gangrene, recurrence not specified, unspecified laterality [K40.90] Procedures MI RPR 1ST INGUN HRNA AGE 5 YRS/> REDUCIBLE MI RPR AA HERNIA RECR < 3 CM NCRC8/STRANGULATED OPEN UMBILICAL HERNIA REPAIR, OPEN LEFT INGUINAL HERNIA REPAIR, MESH Darrick Benitez MD [address] [address] [facility] [address] [place] [address] Referral ID Status Reason Start Date Expiration Date Visits Re quested Visits Authorized [id number] 1 1 Reason Comments Ankle Pain RT ANKLE Reason Comments Follow-up Reason Comments Follow-up Mri results Reason Comments Ankle Pain Discuss ankle instab ility surgery Patient Care team informatio n (unrecognized section and content) Team Status: Active Member Role Status Dates Sherin House MD Primary Care Provider Active Team Status: Inactive Member Role Status Dates Sherin House MD Primary Care Provider Active Start: November 21, 2023 End: November 21, 2023 Walter Guillaume DO Emergency Provider Active St art: November 21, 2023 End: November 21, 2023 Jet Dyeing Machine Operator Relationship Specialty Start Date End Date Sherin House MD [address] [place] [id number] PCP - General 01/06/13 Jet Dye[employer] Machine Operator Relationship Specialty Start Date End Date Sherin House MD [address] [place] [address] PCP - General 01/06/13 Jet Dyeing Machine Operator Relationship Specialty Start Date End Date Sherin House MD [address] [place] [address] PCP - General 01/06/13 Jet Dyeing Machine Operator Relationship Specialty Start Date End Date Unallocated, Noms MD Susannah [address] [place], [place] [address] [address] PCP - General Family Medicine 08/08/24 Jet Dyeing Machine Operator Relationship Specialty Start Date End Date Sherin House MD [address] [facility] [place] [address] PCP - General Family Medicine 08/08/24 Jet Dyeing Machine Operator Relationship Specialty Start Date End Date Sherin House MD [address] [facility] [place] [address] PCP - General Family Medicine 08/08/24 Jet Dyeing Machine Operator Relationship Specialty Start Date End Date Sherin House MD [address] [facility] [place] [address] PCP - General Family Medicine 08/08/24 Jet Dyeing Machine Operator Relationship Specialty Start Date End Date Sherin House MD [address] [facility] [place] [address] PCP - General Family Medicine 08/08/24 Jet Dyeing Machine Operator Relationship Specialty Start Date End Date Sherin House MD [address] [place] [address] PCP - General Family Medicine 08/08/24 Jet Dyeing Machine Operator Relationship Specialty Start Date End Date Sherin House MD [address] [place] [address] PCP - General Family Medicine 08/08/24 Jet Dyeing Machine Operator Relationship Specialty Start Date End Date Sherin House MD [address] [place] [address] PCP - General Family Medicine 08/08/24 Jet Dyeing Machine Operator Relationship Specialty Start Date End Date Sherin House MD [address] [place] [address] PCP - General Family Medicine 08/08/24 INFORMATION SOURCE (unrecogn ized section and content) DATE CREATED AUTHOR 09/26/2022 [facility] DATE CREATED AUTHOR AUTHOR'S ORGANIZ ATION 02/22/2023 [facility] DATE CREATED AUTHOR AUTHOR'S ORGANIZ ATION 12/05/2023 [facility] DATE CREATED AUTHOR AUTHOR'S ORGANIZ ATION 12/31/2023 [facility] DATE CREATED AUTHOR AUTHOR'S ORGANIZ ATION 09/15/2024 [facility] DATE CREATED AUTHOR AUTHOR'S ORGANIZ ATION 09/25/2024 [facility] Goals (unrecognized section and content) Goals may be documented in a n alternate section Ordered Prescriptions (unrec ognized section and content) Prescription Sig Dispensed Refills Start Date End Da te oxyCODONE-acetaminophen (PERCOCET) 5-325 MG per tabletIndications:Umbili tahmina hernia without obstruction and without gangrene Take 1 tablet by mouth every 8 hours as needed for Pain for up to 3 days. Intended supply: 3 days. Take lowest dose possible to manage pain Max Daily Amount: 3 tablets 5 tablet 0 11/21/2023 11/24/2023 Prescription Sig Dispensed Refills Start Date End Da te oxyCODONE (ROXICODONE) 5 MG immediate release tabletIndications:H/O umbilical hernia repair,S/P left inguinal hernia repair Take 1 tablet by mouth every 8 hours as needed for Pain for up to 2 days. Intended supply: 3 days. Take lowest dose possible to manage pain Max Daily Amount: 15 mg 5 tablet 12/17/2023 12/19/2023 ondansetron (ZOFRAN) 4 MG tablet Take 1 tablet by mouth 3 times daily as needed for Nausea or Vomiting 15 tablet 12/17/2023 docusate sodium (COLACE) 100 MG capsule Take 1 capsule by mouth 2 times daily 60 capsule 12/17/2023 01/16/2024 methocarbamol (ROBAXIN-750) 750 MG tablet Take 1 tablet by mouth 4 times daily for 10 days 40 tablet 12/17/2023 12/27/2023 HYDROcodone-acetaminoph en (NORCO) 5-325 MG per tabletIndications:H/O umbilical hernia repair,S/P left inguinal hernia repair Take 1 tablet by mouth every 6 hours as needed for Pain for up to 5 days. Intended supply: 5 days. Take lowest dose possible to manage pain Max Daily Amount: 4 tablets 20 tablet 12/17/2023 12/17/2023 Scheduled Active and Recently Administ ered Medications (unrecognized section and content) Medication Order 11/19/2023 11/20/2023 11/21/2023 acetaminophen (TYLENOL) tablet 1,000 mg (COMPLETED) 1,000 mg, Oral, ONCE, 1 dose, On 11/21/23 at 1615, Maximum dose of acetaminophen is 4000 mg from all sources in 24 hours. 1622 (Given - Provid er: Sri Corea RN) ondansetron (ZOFRAN) injection 4 mg (COMPLETED) 4 mg, IntraVENous, ONCE, 1 dose, On 11/21/23 at 1615 1623 (Given - Provid er: Sri Corea RN) oxyCODONE-acetaminophen (PERCOCET) 5-325 MG per tablet 1 tablet (COMPLETED) 1 tablet, Oral, ONCE, 1 dose, On 11/21/23 at 1945, Maximum dose of acetaminophen is 4000 mg from all sources in 24 hours. 1945 (Given - Provid er: Mireille Byrne LPN) PRN Medication Order 11/19/2023 11/20/2023 11/21/2023 iopamidol (ISOVUE-370) 76 % injection 75 mL (COMPLETED) 75 mL, IntraVENous, IMG ONCE PRN, 1 dose, Starting on 11/21/23 at 1730, Until 11/21/23 at 1740, Other 1740 (Given - Provid er: Krys Germain) Scheduled Medication Order 12/15/2023 12/16/2023 12/17/2023 oxyCODONE (ROXICODONE) immediate release tablet 5 mg 5 mg, Oral, ONCE, 1 dose, On Amara 12/17/23 at 1130 1130 (Due) sodium chloride flush 0.9 % injection 5-40 mL 5-40 mL, IntraVENous, EVERY 12 HOURS SCHEDULED (2 times per day), First dose on Amara 12/17/23 at 1000, Until Discontinued, For Line Patency: Peripheral IV = 5 mL; Midline or Central Line = 10 mL/lumen. If following IV push medication, administer flush at same rate as the IV push. Flush volume is determined by type of infusion therapy being given. For non-viscous solutions use: Peripheral IV = 5 mL Midline or Central Line = 10 mL/lumen For viscous solutions (i.e. blood components, parenteral nutrition, contrast media, or after obtaining blood sample) use: Peripheral IV = 10 mL Midline or Central Line = 20 mL/lumen, PACU only 1000 (Due)2100 (Due) Continuous Medication Order 12/15/2023 12/16/2023 12/17/2023 lactated ringers IV soln infusion IntraVENous, at 100 mL/hr, CONTINUOUS, Starting on Amara 12/17/23 at 0715 0715 (Due) PRN Medication Order 12/15/2023 12/16/2023 12/17/2023 0.9 % sodium chloride infusion IntraVENous, at 5-250 mL/hr, PRN, if patient receiving piggyback infusions and maintenance fluids are not ordered OR KVO fluids to protect IV site / prevent frequent line interruptions/ long duration, Starting on Amara 12/17/23 at 0944, For piggyback infusion, administer at same rate as piggyback for a total of 25 mL. Enter 25 mL into dose field and piggyback rate into rate field of order. If piggyback is infusing at a rate less than 100 mL/hr, enter 25 mL into dose field and 100 mL/hr into rate field of order. For KVO fluids, enter rate of 20 mL/hr or less into rate field of order., PACU only BUPivacaine-EPINEPHrine PF (MARCAINE-w/EPINEPHrine) 0.5% -1:524795 injection (CANCELED) PRN, Starting on Amara 12/17/23 at 0814, Until Amara 12/17/23 at 0941, Intra-op 0814 (Given - Provid er: Darrick Benitez MD - Comment: INCISION SITES) HYDROmorphone (DILAUDID) injection 0.25 mg 0.25 mg, IntraVENous, EVERY 5 MIN PRN, 4 doses, Starting on Amara 12/17/23 at 0944, Until Discontinued, Pain Moderate (4-6), For Phase I. If Phase II oral narcotics have been administered in the last 60 minutes, do not administer IV narcotics unless specifically approved by provider., PACU only HYDROmorphone (DILAUDID) injection 0.5 mg 0.5 mg, IntraVENous, EVERY 5 MIN PRN, 4 doses, Starting on Amara 12/17/23 at 0944, Until Discontinued, Pain Severe (7-10), For Phase I. If Phase II oral narcotics have been administered in the last 60 minutes, do not administer IV narcotics unless specifically approved by provider., PACU only 1031 (Given - Provid er: Johnathon Booth RN)1050 (Given - Provider: Johnathon Booth RN) ipratropium 0.5 mg-albuterol 2.5 mg (DUONEB) nebulizer solution 1 Dose 1 Dose, Inhalation, ONCE PRN, 1 dose, Starting on Amara 12/17/23 at 0944, Until Thu12/18/23 at 0944, Shortness of Breath, Wheezing, Initiate RT Bronchodilator Protocol: No, PACU only metoclopramide (REGLAN) injection 10 mg 10 mg, IntraVENous, ONCE PRN, 1 dose, Starting on Amara 12/17/23 at 0944, Until Thu12/18/23 at 0944, Nausea, Secondary antiemetic therapy., PACU only naloxone 0.4 mg in 10 mL sodium chloride syringe IntraVENous, PRN, Opioid Reversal, Starting on Amara 12/17/23 at 0944, PRN if respiratory rate is less than 6/min and patient is difficult to arouse then notify physician STAT. Mix 9 mL of sodium chloride 0.9% with 0.4 mg (1 mL) of naloxone (NARCAN) in 10 mL syringe. (Note: dilution is 0.04 mg/mL) Give 0.08 mg (2 mL of special dilution), slow IV push, repeat up to 0.4 mg (10 mL) or until patient is responsive to physical stimulation and respiratory rate is equal to or greater than 6 breaths/min. Continue to observe, if no response within 3 minutes of administration of 0.4 mg (10 mL) total, repeat dose (0.4 mg as administered previously). Concentration 0.04 mg/mL, PACU only oxyCODONE (ROXICODONE) immediate release tablet 5 mg (COMPLETED) 5 mg, Oral, ONCE PRN, 1 dose, Starting on Amara 12/17/23 at 0944, Until Amara 12/17/23 at 1103, Pain Moderate (4-6), Pain Severe (7-10), PHASE II, PACU only 1103 (Given - Provid er: Johnathon Booth RN) prochlorperazine (COMPAZINE) injection 5 mg 5 mg, IntraVENous, ONCE PRN, 1 dose, Starting on Amara 12/17/23 at 0944, Until Thu12/18/23 at 0944, Nausea, Initial antiemetic therapy., PACU only sod chloride IRR soln 0.9 % irrigation (CANCELED) CONTINUOUS PRN, Starting on Amara 12/17/23 at 0746, Intra-op 0746 (New Bag - Prov ider: Darrick Benitez MD - Comment: POURED TO BACK TABLE) sodium chloride flush 0.9 % injection 5-40 mL 5-40 mL, IntraVENous, PRN, Starting on Amara 12/17/23 at 0944, Until Discontinued, Line Care, After every IV line use, For Line Patency: Peripheral IV = 5 mL; Midline or Central Line = 10 mL/lumen. If following IV push medication, administer flush at same rate as the IV push. Flush volume is determined by type of infusion therapy being given. For non-viscous solutions use: Peripheral IV = 5 mL Midline or Central Line = 10 mL/lumen For viscous solutions (i.e. blood components, parenteral nutrition, contrast media, or after obtaining blood sample) use: Peripheral IV = 10 mL Midline or Central Line = 20 mL/lumen, PACU only FOR RECORDS PERTAINING TO PATIENTS WHO ARE OR HAVE BEEN ENROLLED IN A CHEMICAL DEPENDENCY/SUBSTANCEABUSE PROGRAM, SOME INFORMATION MAY BE OMITTED. This clinical summary was aggregated from multiple sources. Caution should be exercised in using it in the provision of clinical care. This summary normalizes information from multiple sources, and as a consequence, information in this document may materially change the coding, format and clinical context of patient data. In addition, data may be omitted in some cases. CLINICAL DECISIONS SHOULD BE BASED ON THE PRIMARY CLINICAL RECORDS. [facility]. provides no warranty or guarantee of the accuracy or completeness of information in this document.
[2024-10-05 11:21] LABS: Basophils Percent Auto 0.5 % (0.2-2.0); Eosinophils Absolute Auto 0.1 10^3/uL (0.0-0.7); Eosinophils Percent Auto 1.6 % (0.9-7.0); Hematocrit 38.3 % (36.0-48.0); Hemoglobin 13.2 g/dL (12.0-16.0); Immature Granulocytes Abs Auto 0.01 10^3/uL (0.00-0.03); Immature Granulocytes Pct Auto 0.2 % (0.0-0.5); Lymphocytes Absolute Auto 1.7 10^3/uL (1.2-3.8); Lymphocytes Percent Auto 28.2 % (20.5-60.0); Mean Corpuscular HGB Conc 34.5 g/dL (29.9-35.2); Mean Corpuscular Hemoglobin 30.9 pg (26.7-34.0); Mean Corpuscular Volume 89.7 fL (81.0-99.0); Mean Platelet Volume 10.7 fL (9.5-13.5); Monocytes Absolute Auto 0.5 10^3/uL (0.3-0.8); Monocytes Percent Auto 7.4 % (1.7-12.0); Neutrophils Absolute Auto 3.8 10^3/uL (1.4-6.5); Neutrophils Percent Auto 62.1 % (43.0-75.0); Platelet Count 196 10^3/uL (150-450); Red Blood Count 4.27 10^6/uL (4.20-5.40); Red Cell Distribution Width 12.1 % (11.0-15.0); White Blood Count 6.1 10^3/uL (4.0-11.0)
[2024-10-05 12:14] LABS: Alanine Aminotransferase 28 U/L (14-59); Albumin Globulin Ratio 1.2; Albumin Level 3.9 g/dL (3.4-5.0); Alkaline Phosphatase 53 U/L (46-116); Anion Gap 10.8; Aspartate Amino Transferase 19 U/L (15-37); BUN Creatinine Ratio 19.6; Carbon Dioxide 31.1 mmol/L (21.0-32.0); Chloride 102 mmol/L (98-107); Chol HDL Ratio 2.7; Cholesterol 162 mg/dL (<=200); Estimated GFR (African America >60 (>=60 mL/min/1.73m^2); Estimated GFR (Non-African Ame >60 (>=60 mL/min/1.73m^2); Free T3 3.15 pg/mL (2.18-3.98); Globulin 3.3 g/dL; Glucose 101 mg/dL (74-106); HDL Cholesterol 60 mg/dL (40-60); LDL Cholesterol Calculated 88.2 mg/dL; Potassium 3.9 mmol/L (3.5-5.1); Sodium 140 mmol/L (136-145); Total Protein 7.2 g/dL (6.4-8.2); Triglycerides 69 mg/dL (<=150); VLDL CHOLESTEROL 13.8 mg/dL
[2024-10-05 12:25] LABS: Estimated Average Glucose 114 mg/dL; Glycohemoglobin A1C 5.6 % (4.5-6.2)
[2024-10-06 04:07] LABS: FSH 7.9 mIU/mL (.)
[2024-10-06 07:08] LABS: Insulin 12.6 uIU/mL (2.6-24.9)
[2024-10-06 08:09] LABS: Estradiol 86.8 pg/mL (.); Progesterone 4.4 ng/mL (.); Prolactin 18.5 ng/mL (4.8-33.4); Testosterone 16 ng/dL (8-60)
== END 2024-10-05 10:19 | disposition home or self-care (01) ==
LOC: LAB 10:20
PROVIDERS: PCP Family Medicine; Visit Provider Family Medicine
DX: R60.9 Edema, unspecified (principal); I11.0 Hypertensive heart disease with heart failure; I50.30 Unspecified diastolic (congestive) heart failure; E78.5 Hyperlipidemia, unspecified; R73.09 Other abnormal glucose; D64.9 Anemia, unspecified; R53.83 Other fatigue; E55.9 Vitamin D deficiency, unspecified; R79.89 Other specified abnormal findings of blood chemistry
CPT/HCPCS: 36415; 80053; 80061; 82306; 82670; 83001; 83036; 83525; 83540; 83880; 84144; 84146; 84403; 84436; 84443; 84481; 85025

== ENCOUNTER 2024-11-11 10:00 | Outpatient (OUT) | payer OTHER, SELFPAY ==
--- OUTSIDE RECORDS SUMMARY | 2013-01-20 05:12 | XMS_ITS | Encounter Summary ---
Author Organization [facility] Address [address], [address] [place] [address] Care Team Providers Care Alliances Consultant Name Role Phone Barry House MD Primary Care Provider [phone] Encounter Details Date Type Department Care Team (Late st Contact Info) Description 01/20/2013 5:12 AM EDT Hospital Encounter MTH PRE ADMIT [address] [phone] Jona Ashley MD 27 [facility] [address] [place] [address] Social History Tobacco Use Types Packs/Day Years [...] AM EDT) - 01/20/2013 12:49 PM EDT [facility] WBC, UA 0 TO 2 0 - 5 /HPF 01/20/2013 12:49 PM EDT [facility] RBC, UA None 0 - 2 /HPF 01/20/2013 12:49 PM EDT [facility] Casts UA NOT REPORTED 0 - 2 /LPF [facility] Crystals, UA 10 TO 20(A) NONE /HPF 01/20/2013 12:49 PM EDT [facility] Comment:CALCIUM OXALATE Epithelial Cells, UA 2 TO 5 0 - 25 /HPF 01/20/2013 12:49 PM EDT [facility] Comment: Performed at [address] [place] [address] Renal Epithelial, UA NOT REPORTED 0 /HPF [facility] Bacteria, UA NOT REPORTED NONE [facility] Mucus, UA NOT REPORTED NONE [facility] Trichomonas NOT REPORTED NONE [facility] Amorphous, UA NOT REPORTED NONE [facility] Other Observations UA NOT REPORTED NREQ [facility] Yeast, UA NOT REPORTED NONE [facility] 01/20/2013 9:03 AM EDT 01/20/2013 9:04 AM EDT Jona Ashley MD URINE ORDERABLES Final Result Performing Organization Address [facility] Co de Phone Number [facility] [address] [place], [place] [id number] [phone] [facility] * TYPE AND SCREEN (01/20/2013 9:03 AM EDT) Expiration Date 01/27/2013 3 11:13 AM EDT [facility] Arm Band Number [id number] 3 11:12 AM EDT [facility] ABO/Rh A POSITIVE 01/20/2013 11:12 AM EDT [facility] Antibody Screen NEGATIVE 3 11:36 AM EDT [facility] Comment: Performed at [address] [place] [address] BLOOD SPECIMEN / Unknown 01/20/2013 9:03 AM EDT 01/20/2013 9:04 AM EDT us Jona Ashley MD BLOOD BANK TEST ORDERABLES Fi nal Result Performing Organization Address [facility]/ZIP Co de Phone Number [facility] [address] [place], [place] [id number] [phone] [facility] * (ABNORMAL) UA W/REFLEX CULTURE (01/20/2013 9:03 AM EDT) Color, UA DARK YELLOW(A) YEL 01/20/2013 12:49 PM EDT [facility] Turbidity UA CLEAR CLEAR 01/20/2013 12:49 PM EDT [facility] Glucose, Ur NEGATIVE NEG 01/20/2013 12:49 PM EDT [facility] Bilirubin Urine SMALL(A) NEG 01/20/2013 12:49 PM EDT [facility] Ketones, Urine NEGATIVE NEG 01/20/2013 12:49 PM EDT [facility] Specific [place], UA >1.030(H) 1.010 - 1.020 01/20/2013 12:49 PM EDT [facility] Urine Hgb NEGATIVE NEG 01/20/2013 12:49 PM EDT [facility] pH, UA 6.0 5.0 - 9.0 01/20/2013 12:49 PM EDT [facility] Protein, UA 1+(A) NEG 01/20/2013 12:49 PM EDT [facility] Urobilinogen, Urine Normal NORM 01/20/2013 12:49 PM EDT [facility] Nitrite, Urine NEGATIVE NEG 01/20/2013 12:49 PM EDT [facility] Leukocyte Esterase, Urine NEGATIVE NEG 01/20/2013 12:49 PM EDT [facility] Comment: Performed at [address] [place] [address] Urinalysis Comments NOT REPORTED [facility] Urine 01/20/2013 9:03 AM EDT 01/20/2013 9:04 AM EDT Jona Ashley MD URINE ORDERABLES Final Result [facility] [address] [place], [place] [id number], [facility] [phone] [facility] * HCG Qualitative, Serum (01/20/2013 9:02 AM EDT) Preg, Serum NEGATIVE NEG 01/20/2013 10:24 AM EDT [facility] Comment: Performed at [address] [place] [address] BLOOD SPECIMEN / Unknown 01/20/2013 9:02 AM EDT 01/20/2013 9:04 AM EDT us Jona Ashley MD CHEMISTRY ORDERABLES Final Re sult [facility] [address] [phone] [facility] * (ABNORMAL) CBC auto differential (01/20/2013 9:02 AM EDT) WBC 6.9 3.5 - 11.0 k/uL 01/20/2013 9:38 AM EDT [facility] RBC 4.47 4.0 - 5.2 m/uL 01/20/2013 9:38 AM EDT [facility] Hemoglobin 13.0 12.0 - 16.0 g/dL 01/20/2013 9:38 AM EDT [facility] Hematocrit 40.0 36 - 46 % 01/20/2013 9:38 AM EDT [facility] MCV 89.6 80 - 100 fL 01/20/2013 9:38 AM EDT [facility] MCH 29.1 26 - 34 pg 01/20/2013 9:38 AM EDT [facility] MCHC 32.5 31 - 37 g/dL 01/20/2013 9:38 AM EDT [facility] RDW 14.3(H) 10.0 - 14.0 % 01/20/2013 9:38 AM EDT [facility] Platelets 207 140 - 450 k/uL 01/20/2013 9:38 AM EDT [facility] MPV NOT REPORTED 6.0 - 12.0 fL [facility] Differential Type NOT REPORTED [facility] Seg Neutrophils 56 36 - 66 % 3 9:38 AM EDT [facility] Lymphocytes 35 24 - 44 % 01/20/2013 9:38 AM EDT [facility] Monocytes % 6 0 - 12 % 01/20/2013 9:38 AM EDT [facility] Eosinophils % 2 0 - 8 % 01/20/2013 9:38 AM EDT [facility] Basophils % 1 0 - 2 % 01/20/2013 9:38 AM EDT [facility] Neutrophils Absolute 3.90 1.8 - [...] - 0.2 k/uL 01/20/2013 9:38 AM EDT [facility] Comment: Performed at [address] [place] [address] WBC Morphology NOT REPORTED [facility] RBC Morphology NOT REPORTED [facility] Platelet Estimate NOT REPORTED [facility] BLOOD SPECIMEN / Unknown 01/20/2013 9:02 AM EDT 01/20/2013 9:04 AM EDT us Jona Aslhey MD HEMATOLOGY ORDERABLES Final R esult [address] [address] [phone] [facility] documented in this encounter Visit Diagnoses Not on filedocumented in this encounter Care Teams Alliances Consultant Relationship Specialty Start Date End Date Barry House MD [address] [place] [address] PCP - General 01/06/13 documented as of this encounter
--- OUTSIDE RECORDS SUMMARY | 2013-10-26 10:30 | XMS_ITS | Encounter Summary ---
Author Organization [facility] Address [address], [address] [place] [address] Care Team Providers Care Cereal Maker Name Role Phone Barry House MD Primary Care Provider [phone] Encounter Details Date Type Department Care Team (Late st Contact Info) Description 10/26/2013 10:30 AM EDT Hospital Encounter MTH Ultrasound [address] [phone] Jona Ashley MD [address] [facility] [address] [place] [address] Social History Tobacco Use Types Packs/Day Years [...] on filedocumented in this encounter Care Teams Cereal Maker Relationship Specialty Start Date End Date Barry House MD [address] [place] [address] PCP - General 01/06/13 documented as of this encounter
--- OUTSIDE RECORDS SUMMARY | 2015-01-05 09:00 | XMS_ITS | Encounter Summary ---
Author Organization [facility] Address [address], [address] [place] [address] Care Team Providers Care Trimmer And Borer Machine Operator Name Role Phone Barry House MD Primary Care Provider [phone] Encounter Details Date Type Department Care Team (Late st Contact Info) Description 01/05/2015 9:00 AM EDT Hospital Encounter MTH PRE ADMIT [address] [phone] Jona Ashley MD 27 [facility] [address] [place] [address] Social History Tobacco Use Types Packs/Day Years [...] on filedocumented in this encounter Care Teams Trimmer And Borer Machine Operator Relationship Specialty Start Date End Date Barry House MD [address] [place] [address] PCP - General 01/06/13 documented as of this encounter
--- OUTSIDE RECORDS SUMMARY | 2021-02-07 12:05 | XMS_ITS | Continuity of Care Document ---
Author Organization [facility] Address [address] [place] [address] Phone Care Team Providers Care Supervisor Home Economics Name Role Phone Kranthi Donato DO Unavailable [...] VISIT, EST OFFICE/OUTPATIENT VISIT, EST Acute Detox Data Migration Consultant URINE TEST Acute Detox Data Migration Consultant Intraoral-periapical 1st Film 8 Oral Hygiene Instruction [...] Diagnoses Date Provider Providers Copied on Encounter [facility], [address] [place] [address], [id number] , tel:[phone] [facility] No Information 1 [facility]. [address] [place] [address], [id number], [place]. tel:[phone] OFFICE/OUTPA TIENT VISIT, [facility], [address], [place], [id number] , [place] tel:[phone] [facility] Med refills (chief complaint) Body mass index [BMI] 36.0-36.9, adultBipolar 1 disorderRheumat oid arthritis involving multiple sites, unspecified whether rheumatoid factor present 1 Pavlock DO Max. [address], [place], [id number], [place]. tel:[phone] 62 OFFICE/OUTPA TIENT VISIT, [facility], [address], [place], [id number] , [place] tel: [phone] [facility] check up (chief complaint)d epression (chief complaint) Body mass index [BMI] 35.0-35.9, adultBipolar 1 disorderRheumat oid arthritis involving multiple sites, unspecified whether rheumatoid factor presentChronic hepatitis C without hepatic coma 1 [facility] Max[facility] [address], [place], [id number], [place]. tel:[phone] [facility], [address], [place], [id number] , [place] tel: [phone] [facility] No Information 1 [facility] DO Max. [address], [place], [id number], [place]. tel:[phone] OFFICE/OUTPA TIENT VISIT, [facility], [address], [place], [id number] , [place] tel: [phone] [facility] est care (chief complaint)M usculoskele ada pain (chief complaint) Body mass index [BMI] 36.0-36.9, adultBipolar 1 disorderRheumat oid arthritis involving multiple sites, unspecified whether rheumatoid factor presentFibromya lgiaChronic hepatitis C without hepatic comaMigraine aura without headacheEdema, unspecified type 1 [facility] Max[facility] [address], [place], [id number], [place]. tel:[phone] [facility], [address], [place], [id number] , [place] tel: [phone] [facility] Detox Amphetamine or other stimulant withdrawalOpioi d dependence with withdrawal 1 [facility] DO Max[facility] [address], [place], [id number], [place]. tel:[phone] [facility], [address] [place] [address], [id number] , [place] tel: [phone] [facility] Detox meth dependence (chief complaint) Amphetamine or other stimulant withdrawalOpioi d dependence with withdrawal 1 Valentin Gould. [address], [place], [id number], [place]. tel:[phone] [facility], [address], [place], [id number] , [place] tel: [phone] [facility] Detox Amphetamine or other stimulant withdrawalOpioi d dependence with withdrawalEncou nter for test, result negative 1 Pavlock DO Max. [address], [place], [id number], [place]. tel:[phone] [facility], [address], [place], [id number] , [place] tel: [phone] [facility] Detox Amphetamine or other stimulant withdrawalOpioi d dependence with withdrawalEncou nter for test, result negative 1 [facility] DO Max[facility] [address], [place], [id number], [place]. tel:[phone] [address] [place] [address], [address] [place] [address], [id number] , [place] tel: [phone] [facility] Detox Cocaine dependence with withdrawalEncou nter for test, result negativeSegment al and somatic dysfunction of cervical region 8 Sid Marin. [address], [place], [id number], [place]. tel:[phone] [facility], [address], [place], [id number] , [place] tel:[phone] [facility] emergency (chief complaint) Encounter for screening for dental disorders 8 Isael Rae. [address] [place], [address], [place]. tel:[phone] [facility], [address], [place], [id number] , [place] tel:[phone] [facility] Detox Spine Care (chief complaint) Cocaine dependence with withdrawalEncou nter for test, result negativeSegment al and somatic dysfunction of cervical region 8 Sid Marin. [address], [place], [id number], [place]. tel:[phone] 623 [facility], [address], [place], [id number] , [place] tel:[phone] [facility] Detox Cocaine dependence with withdrawalEncou nter for test, result negativeSegment al and somatic dysfunction of cervical region 8 Visci DO Giraldo. [address], [place], [id number], [place]. tel:[phone] [facility], [address], [place], [id number] , [place] tel:[phone] [facility] Detox Cocaine dependence with withdrawalEncou nter for test, result negativeSegment al and somatic dysfunction of cervical region 8 Sid Marin. [address], [place], [id number], [place]. tel:[phone] [facility], [address], [place], [id number] , [place] tel:[phone] [facility] Detox Cocaine dependence with withdrawalEncou nter for test, result negativeSegment al and somatic dysfunction of cervical region 8 Sid Marin. [address], [place], [id number], [place]. tel:[phone] [facility], [address], [place], [id number] , [place] tel:[phone] [facility] No Information 8 Sid Marin. [address], [place], [id number], [place]. tel:[phone] [facility], [address], [place], [id number] , [place] tel:[phone] [facility] abuse (chief complaint)S pine Care (chief complaint) Cocaine dependence with withdrawalSegme ntal and somatic dysfunction of cervical region 8 Jenny Kim. [address], [place], [id number], [place]. tel:[phone] [facility], [address], [place], [id number] , [place] tel:[phone] [facility] Detox Cocaine dependence with withdrawalEncou nter for test, result negativeSegment al and somatic dysfunction of cervical region 8 Visci Enzo. [address], [place], [id number], [place]. tel:[phone] [facility], [address], [place], [id number] , [place] tel:[phone] [facility] Detox Cocaine dependence with withdrawalEncou nter for test, result negativeSegment al and somatic dysfunction of cervical region 8 Visci DO Giraldo. [address], [place], [id number], [place]. tel:[phone] [facility], [address] [place] [address], [id number] , [place] tel:[phone] [facility]ox Cocaine dependence with withdrawalEncou nter for test, result negativeSegment al and somatic dysfunction of cervical region 8 Visci Enzo. [address], [place], [id number], [place]. tel:[phone] [facility], [address], [place], [id number] , [place] tel:[phone] [facility] Detox Spine Care (chief complaint) Cocaine dependence with withdrawalEncou nter for test, result negativeSegment al and somatic dysfunction of cervical region 8 Visci Enzo. [address], [place], [id number], [place]. tel:[phone] [facility], [address], [place], [id number] , [place] tel:[phone] [facility] No Information 8 Visci DO Giraldo. [address], [place], [id number], [place]. tel:[phone] [facility], [address], [place], [id number] , [place] tel: [phone] [facility]ox Cocaine dependence with withdrawalEncou nter for test, result negative 8 Visci DO Enzo. [address], [place], [id number], [place]. tel:[phone] [facility], [address], [place], [id number] , [place] tel: [phone] [facility] Detox Cocaine dependence with withdrawalEncou nter for test, result negative 8 Visci DO Enzo. [address], [place], [id number], [place]. tel:[phone] [facility], [address] [place] [address], [id number] , [place] tel: [phone] [facility] cocaine/met hamphetamin e abuse (chief complaint) Cocaine dependence with withdrawal 8 Jenny Kim. [address], [place], [id number], [place]. tel:[phone] [facility], [address], [place], [id number] , [place] tel: [phone] [facility] Detox Cocaine dependence with withdrawalEncou nter for test, result negative 8 Visci DO Enzo. [address], [place], [id number], [place]. tel:[phone] [facility], [address], [place], [id number] , [place] tel: [phone] [facility] Cocaine dependence with withdrawalEncou nter for test, result negative 0 8 Visci DO Enzo. [address], [place], [id number], [place]. tel:[phone] Family History Family Member Type Diagnosis [...] states that she was established previously in [place], with Dr Mike Newman. Patient reports that [...] & Lt.Somatic dysfunction & hypomobile subluxation Levels: C1-N7Aywywilbub/Plan:Plan and todays treatment: Discussed treatment plan and [...] & Lt.Somatic dysfunction & hypomobile subluxation Levels: C1-X2Xowajbghgx/Plan:Plan and todays treatment: Discussed treatment plan and [...] & Lt.Somatic dysfunction & hypomobile subluxation Levels: C1-M4Essjgcupdz/Plan:Plan and todays treatment: Discussed treatment plan and [...]
--- OUTSIDE RECORDS SUMMARY | 2024-10-10 12:23 | XMS_ITS ---
Author Organization [facility] in [place] Address [address] [place] [address] Care Team Providers Care Web Development Consultant Name Role Phone Bryant House Primary Care Provider REASON FOR VISIT cleared for OR? Encounters Encounter Location Date Provider Diagnosis [facility] [address] [place] [address] 10/10/2024 Bryant House Plan Of Treatment No Information Progress Notes * Tiara FRIED RDOB: [birth year] (38 yo F)Acc No.[id number]:10/10/2024 Patient: Meghan GARNERTiara :1985 A ge:38 Y S ex:Female Address:[address] [place] [address], [address] [employer], [place] [address] * true * Date: Generated for Printi ng/Faxing/eTransmitting on: 0 11/11/2024 10:03 AM EDT
--- OUTSIDE RECORDS SUMMARY | 2024-11-04 07:00 | XMS_ITS ---
Author Organization [facility] in [place] Address [address] [place] [address] Care Team Providers Care Printed Circuit Layout Taper Name Role Phone Bryant House Primary Care Provider [phone] Allergies Allergen (clinical drug ingredient) Drug/Non Drug Allergy documented on EMR Reaction Allergy Type Onset Date Status Keflex Unknown Drug Allergy Active desvenlafaxine Pristiq Unknown Drug Allergy Ac tive doxycycline Doxycycline hives/blisters Drug Allergy Active Substance with sulfonamide structure and antibacterial mechanism of action (substance) Sulfa Antibiotics Unknown Drug Allergy Active erythromycin Erythromycin Unknown Drug Allergy A ctive Non-steroidal anti-inflammatory agent (FN) NSAIDs Unknown Drug Allergy Active REASON FOR VISIT Presents to office alone. Finished Lasix. Swelling to legs was better. Swelling returned within a week. Denies any SOB, SELF PAY Medications Medication SIG (Take, Route, Frequency, Duration) Notes Start Date End Date Status Nicotine 21 MG/24HR 1 patch to skin Transdermal Once a day 10/03/2024 Active Valtrex 1 GM 1 tablet Orally Once a day PRN Active Ondansetron 4 MG 1 tablet on the tong ue and allow to dissolve Orally Q 6 hours PRN for 3 12/10/2022 Active Lasix 40 MG 1 tablet Orally Once a day for 30 days 11/04/2024 Active Vitamin D (Cholecalciferol) 50 MCG (1999 UT) 1 capsule Orally Once a day 10/06/2024 Active Brixadi 64 MG/0.18ML 0.18 mL Subcutaneou s monthly Active Abilify 30 MG 1 tablet Orally Once a day for 90 days Active Potassium Chloride ER 10 MEQ 1 capsule with food Orally Twice a day for 30 days 11/04/2024 Active Social History Tobacco Use: Social History Observation Description Date Details (start date - stop date) Current Smoker NA - NA Tobacco Use/Smoking Question Answer Notes Patient is a current smoker AUDIT-C (Standard) Question Answer Notes Did you have a drink containing alcohol in the p ast year? No Points 0 Interpretation Negative Vital Signs Weight 309 lbs 11/04/2024 Height 67 in 11/04/2024 Blood pressure systolic 130 mm Hg 11/05/19 25 Blood pressure diastolic 78 mm Hg 025 BMI 48.39 kg/m2 11/04/2024 Procedures Procedure Date Ordered Date Performed Result Body Sit e CARDIO Echocardiogram 11/04/2024 N/A Encounters Encounter Location Date Provider Diagnosis [facility] [address] [place] [address] 11/04/2024 Bryant Hoy Edema R60.9 Assessments Encounter Date Diagnosis (ICD Code) Assessment Notes Treatment Notes Treatment Clinical Notes Section Notes 11/04/2024 Edema (ICD-10 - R60.9) Plan Of Treatment Medication Medication Name Sig Start Date Stop Date Notes Lasix 40 MG 1 tablet Orally Once a day for 30 days 11/04/2024 Potassium Chloride ER 10 MEQ 1 capsule w ith food Orally Twice a day for 30 days 11/04/2024 Pending Test Test Name Order Date CARDIO Echocardiogram 11/04/2024 BNP 11/04/2024 CBC AUTO DIFF 11/04/2024 PROF 14(COMP METB) 11/04/2024 VC VENOUS REFLUX CRUZ LMT 11/04/2024 Progress Notes * Tiara FRIED RDOB: [birth year] (38 yo F)Acc No.[id number]:11/04/2024 Progress Note Patient: Meghan GARNER Ammarla Swanson Provider: Ke House ([facility])MD :1985 A ge:38 Y S ex:Female Date:11/04/2024 Address:[address] [place], [place] [id number] Check In:11:20 AM ESTCheck O ut:11:39 AM EST Subjective: * Chief Complaints: * P resents to office alone. Finished Lasix. Swelling to legs was better. Swelling returned within a week. Denies any SOBSELF PAY * HPI: G eneral: edema - better withlasix but then came back needs echo and u/s lkegs. * ROS: E ENT: hearing changes d enies. v isual changes d enies.?non-healing mouth sores d enies. s wollen glands or neck lumps d enies. h oarseness d enies. s ore throat d enies. d ifficulty swallowing d enies. n ose bleeds d enies. n rohini congestion d enies. e ar ache d enies. e ar discharge?denies. r inging in ears d enies. l ight sensitivity d enies. e ye pain d enies. b lurring d enies. e ye irritation d enies. d ouble vision d enies.?vision loss d enies. G eneral/Constitutional: Sweats: D enies. F atigue d enies. S leep problems d enies. A norexia d enies. M alaise d enies. W eight loss d enies.?Fatigue or Weakness d enies. F ever or Chills d enies. C ardiovascular: Shortness of Breath w/lying flat d enies. L ightheadedness/dizziness d enies. C hest tightness/ heavy pressure d enies. S welling of legs, ankles, or feet d enies. W aking up with shortness of breath d enies. C hest pain denies. P alpitations d enies. W eight gain d enies. R espiratory: Chronic or frequent cough d enies. C oughing up blood?denies. D ifficulty breathing d enies. P roductive cough d enies. S noring?denies. S hortness of breath that awakens from sleep (PND) d enies. C hest pain d enies. S putum production d enies. W heezing d enies. M usculoskeletal: Joint pain d enies. J oint Fluid d enies. B ack pain d enies. K nee pain d enies. N kanwal pain d enies. J oint Stiffness d enies. M uscle cramps d enies. W eakness of muscles d enies. A rthritis d enies. M uscle aches d enies. P ain in shoulder(s) d enies. S wollen joints d enies. * Active Problem List M25.50 Arthralgia Modified On:08/29/2022 Status:confirmed N94.6 Dysmenorrhea Modified On:08/29/2022 Status:confirmed F31.9 Bipolar affective di sorder Modified On:08/29/2022 Status:confirmed B18.2 Chronic hepatitis C Modified On:08/29/2022 Status:confirmed F39 Mood disorder Modified On:08/29/2022 Status:confirmed B00.9 Herpes simplex Modified On:08/29/2022 Status:confirmed K42.9 Umbilical hernia Modified On:08/29/2022 Status:confirmed F20.9 Schizophrenia Modified On:08/29/2022 Status:confirmed E66.3 Over weight Modified On:08/29/2022 Status:confirmed R10.84 Abdominal pain, gene ralized Modified On:08/29/2022 Status:confirmed F11.10 Heroin abuse Modified On:08/29/2022 Status:confirmed F12.10 Cannabis abuse Modified On:08/29/2022 Status:confirmed K50.90 Crohn's disease Modified On:08/29/2022U Status:confirmed F19.20 Polysubstance (exclu ding opioids) dependence Modified On:08/29/2022U Status:confirmed Z30.2 Sterilization Modified On:08/29/2022 Status:confirmed D64.9 Anemia Modified On:08/29/2022 Status:confirmed F32.9 Depression Modified On:08/29/2022U Status:confirmed G47.00 Insomnia Modified On:08/29/2022U Status:confirmed L30.9 Eczema Modified On:05/12/2023W/U Status:confirmed G56.00 Carpal tunnel syndro me Modified On:08/29/2022 Status:confirmed F51.3 Sleep walking disord er Modified On:08/29/2022 Status:confirmed M54.50 Low back pain, unspe cified Modified On:08/29/2022 Status:confirmed M54.16 Lumbar radiculopathy Modified On:07/30/2022 Status:confirmed N61.1 Abscess of the breas t and nipple Modified On:09/08/2022U Status:confirmed 729.5 Left foot pain Modified On:08/29/2022U Status:confirmed M79.672 Foot pain, left Modified On:09/17/2022U Status:confirmed N63.0 Breast mass Modified On:12/10/2022 Status:confirmed K40.90 Left inguinal hernia Modified On:10/27/2023U Status:confirmed R93.[address] scan Modified On:11/23/2023 Status:confirmed R60.9 Edema Modified On:10/03/2024 Status:confirmed * Medical History: * Surgical History: G allbladder Removal Dialtion and [place] Nondisplaced fracture of base of fifth metatarsal bone- Right Hand Breast Surgery- Right, Dr. Vuong Sterilization Excision of Granuloma and scar tissue Rt. breast Rt. ankle scope. With Dr. Blanca 10/12 * Hospitalization/Major Diagno stic Procedure: * Family History: F ather: alive, type II diabetes, Heart Disease. M other: alive, chronic obstructive pulmonary disease, Heart Disease, hypertension. B rother(s): . S on(s): alive. 2 brother(s) - healthy. 1 son(s) - healthy. . * Social History: T obacco Use: T obacco Use/Smoking P atient is a c urrent smoker D rug/Alcohol: A RICHIE-C (Standard) D id you have a drink containing alcohol in the past year? N o P oints 0 I nterpretation N egative * Medications: T akingAbilify(ARIPiprazole) 30 MG Tablet 1 tablet Orally Once a day Brixadi(Buprenorphine ER) 64 MG/0.18ML Solution Prefilled Syringe 0.18 mL Subcutaneous monthly Nicotine 21 MG/24HR Patch 24 Hour 1 patch to skin Transdermal Once a day Ondansetron 4 MG Tablet Disintegrating 1 tablet on the tongue and allow to dissolve Orally Q 6 hours PRN Valtrex(valACYclovir HCl) 1 GM Tablet 1 tablet Orally Once a day , Notes to Pharmacist: PRNVitamin D (Cholecalciferol) 50 MCG (2000 UT) Capsule 1 capsule Orally Once a day Taking Abilify(ARIPiprazole) 30 MG Tablet 1 tablet Orally Once a day Taking Brixadi(Buprenorphine ER) 64 MG/0.18ML Solution Prefilled Syringe 0.18 mL Subcutaneous monthly Taking Nicotine 21 MG/24HR Patch 24 Hour 1 patch to skin Transdermal Once a day Taking Ondansetron 4 MG Tablet Disintegrating 1 tablet on the tongue and allow to dissolve Orally Q 6 hours PRN Taking Valtrex(valACYclovir HCl) 1 GM Tablet 1 tablet Orally Once a day , Notes to Pharmacist: PRNTaking Vitamin D (Cholecalciferol) 50 MCG (1999 UT) Capsule 1 capsule Orally Once a day DiscontinuedLasix(Furosemide) 40 MG Tablet 1 tablet Orally Once a day Medication List reviewed and reconciled with the patientDiscontinued Lasix(Furosemide) 40 MG Tablet 1 tablet Orally Once a day Medication List reviewed and reconciled with the patient * Allergies: E rythromycinPristiqNSAIDsSulfa AntibioticsKeflexDoxycycline: hives/blisters - Allergyno[Allergies Verified] Objective: * Vitals: W t:309lbs, Ht: 67 in, BP:130/78mm Hg, BMI:48.39Index, Ht-cm: 170.18 cm, Wt-k.16 kg. * Examination: P hysical Exam: GENERAL: w ell developed, well nourished, in no acute distress. HEAD: n ormocephalic/atraumatic. EYES: p upils equal, round and reactive to light, conjunctivae and sclerae normal. EARS: n o deformity or lesion of external ear, canals and TM appear normal bilaterally, TM's intact, not inflamed with normal light reflex, hearing grossly normal to conversational speech. NOSE: n o deformity, discharge, inflammation, or lesions.? MOUTH: m ucous membranes moist, normal oropharynx and posterior pharynx without lesions or exudates, tongue normal, dentition normal. NECK: n kanwal supple, no masses or palpable cervical nodes, trachea midline, thyroid without nodules, masses, tenderness, or enlargement. CHEST: n o chest wall deformity, no chest wall tenderness.? LUNGS: n ormal respiratory effort and clear to auscultation, no wheezes, rales, or rhonchi, good air exchange. CARDIO: r egular rate and rhythm, normal S1 and S2, nor murmur, rub, or gallop. PULSES: n ormal capillary refill. ABDOMEN: s oft, non-distended, non-tender, no masses. MUSCULOSKELETAL: n o deformity or scoliosis noted, normal range of motion, joints normal, no erythema, edema, effusion, or ecchymosis. EXTREMITY: n o clubbing, cyanosis, edema, or deformity with normal ROM in both upper and lower bilateral extremities. NEUROLOGIC: g rossly normal. SKIN: n o rashes, ulcerations, or suspicious lesions. LYMPH NODES: n o cervical adenopathy, nodes normal. MENTAL STATUS: a lert and oriented x3, normal mood and affect. Assessment: * Assessment: 1. E annika - R60.9 (Primary) Plan: * Treatment: * Procedure Codes: * Preventive Medicine: Screenings/Counseling: B VA ACTION PLAN Above Normal BMI Follow-up D ietary management education, guidance, and counseling See treatment section of progress note for complete details of management plan. T OBACCO ACTION PLAN Patient counselled on the dangers of tobacco use and urged to quit. 0 11/04/2024 . * * Sign off status: Completed Visit Status: C HK (Check Out) true * Provider: Ke House ([facility])MD Date: 11/04/2024 Generated for Lisa amanda/Natalie/eTlibbyitting on: 11/11/2024 10:03 AM EDT History and Physical Notes * HPI (History of Present Illness) Category Sub-Category Detail Notes Category Not es General edema - better withlasix but then came back needs echo and u/s lkegs Examination Category Sub-Category Detail Notes Category Not es Physical Exam GENERAL: well developed, well nourished, in no acute distress HEAD: normocephalic/atraum atic EYES: pupils equal, round and reactive to light, conjunctivae and sclerae normal EARS: no deformity or lesi on of external ear, canals and TM appear normal bilaterally, TM's intact, not inflamed with normal light reflex, hearing grossly normal to conversational speech NOSE: no deformity, discha rge, inflammation, or lesions MOUTH: mucous membranes judith st, normal oropharynx and posterior pharynx without lesions or exudates, tongue normal, dentition normal NECK: neck supple, no mass es or palpable cervical nodes, trachea midline, thyroid without nodules, masses, tenderness, or enlargement CHEST: no chest wall deform ity, no chest wall tenderness LUNGS: normal respiratory e ffort and clear to auscultation, no wheezes, rales, or rhonchi, good air exchange CARDIO: regular rate and rhy thm, normal S1 and S2, nor murmur, rub, or gallop PULSES: normal capillary ref ill ABDOMEN: soft, non-distended, non-tender, no masses RECTAL: MUSCULOSKELETAL: no deformity or scol iosis noted, normal range of motion, joints normal, no erythema, edema, effusion, or ecchymosis EXTREMITY: no clubbing, cyanosi s, edema, or deformity with normal ROM in both upper and lower bilateral extremities NEUROLOGIC: grossly normal SKIN: no rashes, ulceratio ns, or suspicious lesions LYMPH NODES: no cervical adenopat hy, nodes normal MENTAL STATUS: alert and oriented x 3, normal mood and affect
--- OUTSIDE RECORDS SUMMARY | 2024-11-04 07:40 | XMS_ITS ---
Author Organization [facility] in [place] Address [address] [place] [address] Care Team Providers Care Operator Assistant I Cementing Name Role Phone Bryant House Primary Care Provider [phone] REASON FOR VISIT SELF PAY Encounters Encounter Location Date Provider Diagnosis [facility] [address] [place] [address] 11/04/2024 Bryant Harsh Plan Of Treatment No Information Progress Notes * Tiara FRIED RDOB: [birth year] (38 yo F)Acc No.[id number]:11/04/2024 Patient: Tiara ROLLE :1985 A ge:38 Y S ex:Female Address:[address] [place] [address], [address], [place] [address] * true * Date: Generated for Printi ng/Fajaneg/eTransmitting on: 0 11/11/2024 10:03 AM EDT
--- OUTSIDE RECORDS SUMMARY | 2024-11-11 10:04 | XMS_ITS | Encounter Summary ---
Author Organization [facility] Address [address] [place] [address] Care Team Providers Care Gas Compressor Turbine Operator Name Role Phone Barry House MD Primary Care Provider [phone] Encounter Details Date Type Department Care Team (Late st Contact Info) Description 10/13/2024 Abstract [facility] [address] [place] [phone] Serg Blanca, DPM FACFAS [address] [place] [address] Social History Tobacco Use Types Packs/Day Years [...] Care Team (Late st Contact Info) Description 11/16/2024 4:10 PM EDT Office Visit [facility] [address] [place] [address] Serg Blanca, DPM FACFAS [address] [place] [address] documented as of this encounter Visit Diagnoses Not on filedocumented in this encounter Care Teams Gas Compressor Turbine Operator Relationship Specialty Start Date End Date Barry House MD [address] [place] [address] PCP - General Family Medicine 08/08/24 documented as of this encounter
--- OUTSIDE RECORDS SUMMARY | 2024-11-11 10:04 | XMS_ITS | Clinical Summary ---
Author Organization [facility] Address [address], [address] [place] [address] Care Team Providers Care Director Of Cardiopulmonary Services Name Role Phone Barry House MD Primary Care Provider [phone] Allergies Active Allergy Reactions Criticality Noted Date Comments Cephalexin Medium 10/06/2017 Amitriptyline Medium 09/06/2012 Erythromycin Medium 06/08/2012 Ketorolac Medium 10/06/2017 Morphine Medium 10/06/2017 Nsaids Medium 09/06/2012 Pregabalin Medium 10/06/2017 Desvenlafaxine Medium 01/20/2013 Propranolol Medium 09/06/2012 Sulfamethoxazole-Trimethoprim Medium 2017 Medications atomoxetine (STRATTERA) 60 MG capsule Take 100 mg by mouth daily Active ARIPiprazole (ABILIFY) 20 MG tablet Take 1 tablet by mouth daily Active Buprenorphine HCl-Naloxone HCl (SUBOXONE SL) Place under the tongue Daily 1.5 strips Active ondansetron (ZOFRAN) 4 MG tablet Take 1 tablet by mouth 3 times daily as needed for Nausea or Vomiting 15 tablet 12/17/2023 Active Active Problems Patient Care Coordination No te Formatting of this note migh t be different from the original. Surgery canceled as patient was a no show, patient being dismissed from practice. Problem Noted Date Diagnosed Date Bipolar affective disorder 08/17/2014 H/O umbilical hernia repair 08/17/2014 Family History Medical History Relation Name Comments Arrhythmia Maternal Grandmother High Blood Pressure Maternal Grandmother Arrhythmia Mother High Blood Pressure Mother Bipolar Disorder Paternal Aunt Schizophrenia Paternal Aunt Relation Name Status Comments Maternal Grandmother Mother Paternal Aunt Social History Tobacco Use Types Packs/Day Years Used Date Smoking Tobacco: Former Cigarettes Smokeless Tobacco: Never Tobacco Cessation:Counseling Given: Not Answered Comments:quit 3 months ago Alcohol Use Standard [...] Sign Reading Time Taken Comments Blood Pressure 145/91 12/29/2023 1:14 PM EDT Pulse 72 12/29/2023 1:14 PM EDT Temperature 36 C (96.8 F) 12/17/2023 11:00 AM EDT Respiratory Rate 16 12/17/2023 11:15 AM EDT Oxygen Saturation 96% 12/17/2023 11:15 AM EDT Inhaled Oxygen Concentration - - Weight 117.5 kg (259 lb) 12/29/2023 1:14 PM EDT Height 170.2 cm (5' 7 ) 12/29/2023 1:14 PM EDT Body Mass Index 40.57 12/29/2023 1:14 PM EDT Plan of Treatment Health Maintenance Due Date Last Done Comments Depression Monitoring 1996 Varicella vaccine (1 of 2 - 13+ 2-dose series) 1997 HIV screen 12/15/1999 Hepatitis C screen 2002 Hepatitis B vaccine (1 of 3 - 19+ 3-dose series) 12/15/2003 DTaP/Tdap/Td vaccine (2 - Td or Tdap) 02/23/2023 02/23/2013 COVID-19 Vaccine (1 - 2023-2 5 season) 2023 Flu vaccine (#1) 11/18/2024 02/03/2020, 01/27/2019, 03/02/2018 Cervical cancer screen Discontinued Pap smear Discontinued 11/07/2014, 01/06/2013 HPV (without or with Pap) Discontinued HPV vaccine Aged Out No longer eligi ble based on patient's age to complete this topic Hepatitis A vaccine Aged Out No longe r eligible based on patient's age to complete this topic Hib vaccine Aged Out No longer eligi ble based on patient's age to complete this topic Meningococcal (ACWY) vaccine Aged Out No longer eligible based on patient's age to complete this topic Meningococcal B vaccine Aged Out No l onger eligible based on patient's age to complete this topic Pneumococcal 0-49 years Vaccine Aged Out No longer eligible based on patient's age to complete this topic Polio vaccine Aged Out No longer elig ible based on patient's age to complete this topic Medical Devices Implanted Type Area Provider Relations Consultant Device Identifier Shelf Expiration Date Model / Serial / Lot Mesh Albaro [id number] Polypr Mfil Sq Nonabsorbable - [id number] Implanted:Qty: 1 on 12/17/2023 by Luis Fernando Benitez MD at [facility] Left: Inguinal BARD DAVOL-WD [id number] / / Procedures Procedure Name Priority Date/Time Associated Diagnosis Comments EXPANDED DUTY DENTAL ASSISTANT CYTOLOGY Routine 11/07/2014 1:01 PM EDT from Last 3 Months or Most Recently Relevant to Health Maintenance Results * EXPANDED DUTY DENTAL ASSISTANT Cytology (11/07/2014 1:01 PM EDT) Cytology Report (NOTE) [id number] [facility] [employer] [facility] ANATOMIC PATHOLOGY [address] [place] [address]. [place], [place] [address] GYNECOLOGIC CYTOLOGY REPORT Patient Name: MAURY FRIED MR#: [id number] Specimen #[id number] Source: 1: CERVICAL MATERIAL, (THIN PREP VIAL) Clinical History V76.2 Pelvic/pap High Risk HPV DNA testing is requested if the diagnosis is ASC-US Date of prior pap: 01/06/2013 INTERPRETATION CERVICAL MATERIAL, (THIN PREP VIAL): Specimen Adequacy: Satisfactory for evaluation. - Endocervical/trans formation zone component present. Descriptive Diagnosis: Negative for intraepithelial lesion or malignancy. Fire Protection Engineering Technician: NIDA Cat(ASCP) Electronically Signed Out /11/16/2014 11/16/2014 12:00 AM EDT [facility] 11/07/2014 1:01 PM EDT 11/09/2014 1:01 PM EDT us Jona Ashley MD PATHOLOGY/CYTOLOGY ORDERABLES Final Result [facility] [address] [place], [place] [address] [phone] from Last 3 Months or Most Recently Relevant to Health Maintenance Insurance [facility] [employer] [facility] Advance Directives * Full Code (Latest Code Status on File) Date Activated Date Inactivated Comments 01/25/2013 8:42 AM 01/25/2013 1:31 PM Care Teams Director Of Cardiopulmonary Services Relationship Specialty Start Date End Date Barry House MD [address] [place] [address] PCP - General 01/06/13
--- OUTSIDE RECORDS SUMMARY | 2024-11-11 10:04 | XMS_ITS | Encounter Summary ---
Author Organization [facility] Address [address] [place] [address] Care Team Providers Care Manufacturing Associate Name Role Phone Barry House MD Primary Care Provider [phone] Encounter Details Date Type Department Care Team (Late st Contact Info) Description 10/05/2024 Orders Only [facility] [address] [place] [address] Serg Blanca, DPM FACFAS [address] [place] [address] Preop examination Social History Tobacco Use Types Packs/Day Years [...] EDT Office Visit [facility] [address] [place] [address] Serg Blanca, DPM FACFAS [address] [place] [address] documented as of this encounter Procedures Procedure Name Priority Date/Time Associated Diagnosis Comments ECG 12-LEAD Routine 10/05/2024 2:32 PM EDT Preop examination documented in this encounter Results * ECG 12 lead (10/05/2024 2:32 PM EDT) us Serg Blanca DPM FACFAS ECG ORDERABLES Final Re sult [address] [address], documented in this encounter Visit Diagnoses Diagnosis Preop examination Unspecified pre-operative examination documented in this encounter Care Teams Manufacturing Associate Relationship Specialty Start Date End Date Barry House MD [address] [place] [phone] PCP - General Family Medicine 08/08/24 documented as of this encounter
--- OUTSIDE RECORDS SUMMARY | 2024-11-11 10:04 | XMS_ITS | Clinical Summary ---
Author Organization [facility] Address [address] [place] [address] Care Team Providers Care Case Picker Name Role Phone Barry House MD Primary Care Provider [phone] Allergies No known active allergies Medications Abilify 30 MG tablet 5 Active Mobic 15 MG tablet 5 Active methylPREDNISol one (Medrol Dospak) 4 MG tabletsIndicati ons:Sprain of anterior talofibular ligament of right ankle, initial encounter Follow schedule on MEDROL PACK package instructions to be used as directed 21 tablet 5 Active oxyCODONE-aceta minophen (Percocet) 5-325 MG tabletIndicatio ns:Pain Take 1 tablet by mouth every 6 (six) hours if needed for severe pain for up to 5 days TAKE 1 PILL P.O. Q.6H P.R.N. PAIN 15 tablet 5 025 Active Problems No known active problems Encounters Date Type Department Care Team Description 10/26/2024 4:00 PM EDT Office Visit [facility] [address] [place] [phone] Serg Mata, DPM FACFAS Other synovitis and tenosynovitis, right ankle and foot (Primary Dx) 10/26/2024 Bamboo flowsheet [facility] [address] [place] [address] Serg Mata, DPM FACFAS 10/19/2024 4:10 PM EDT Office Visit [facility] [address] [place] [address] Serg Mata, DPM FACFAS Other synovitis and tenosynovitis, right ankle and foot (Primary Dx); Contracture of right ankle 10/19/2024 Bamboo flowsheet [facility] [address] [place] [address] Serg Mata, DPM FACFAS 10/13/2024 Abstract [facility] [address] [facility] [place] [address] Serg Mata, DPM FACFAS 10/13/2024 Telephone [facility] [address] [place] [address] Serg Mata, DPM FACFAS 10/12/2024 Telephone [facility] [address] [place] [address] Serg Mata, DPM FACFAS 10/05/2024 4:00 PM EDT Office Visit [facility] [address] [place] [address] Serg Mata, DPM FACFAS Osteochondritis dissecans of right ankle (Primary Dx); Other synovitis and tenosynovitis, right ankle and foot 10/05/2024 Orders Only [facility] [address] [place] [address] Serg Mata, DPM FACFAS Preop examination 10/03/2024 Clinisync Result Encounter [facility] External Department Unsolicited Serg Mata, DPM FACFAS 10/03/2024 Clinisync Result Encounter [facility]OM[facility] External Department Unsolicited Serg Mata, DPM FACFAS 09/16/2024 Orders Only [facility] [address] [place] [address] Christine Bates Preop examination 09/14/2024 4:20 PM EDT Office Visit [facility] [address] [place] [address] Serg Mata, DPM FACFAS Osteochondritis dissecans of right ankle (Primary Dx); Solitary bone cyst of right foot; Other synovitis and tenosynovitis, right ankle and foot 09/14/2024 Telephone [facility] [address] [place] [address] Serg Mata, DPM FACFAS 09/14/2024 Bamboo flowsheet [facility] [address] [place] [address] Serg Mata, DPM FACFAS 09/06/2024 3:30 PM EDT Office Visit [facility] [place] [facility] [address] [place] [address] Yared Terrazas DPM Sprain of anterior talofibular ligament of right ankle, initial encounter (Primary Dx); Contracture of right ankle; Solitary bone cyst of right foot; Osteochondritis dissecans of right ankle 09/06/2024 Bamboo flowsheet [facility] [place] [facility] [address] [place] [address] Yared Terrazas DPM 09/05/2024 9:00 AM EDT Ancillary Procedure [facility] [address] [place] [address] Solitary bone cyst of right foot 09/05/2024 Travel 08/29/2024 3:20 PM EDT Office Visit [facility] [place] [facility] [address] [place] [address] Yared Terrazas DPM Sprain of anterior talofibular ligament of right ankle, initial encounter (Primary Dx); Solitary bone cyst of right foot; Contracture of right ankle 08/29/2024 Bamboo flowsheet [facility] [place] [facility] [address] [place] [address] Yared Terrazas DPM from Last 3 Months Family History Medical History Relation Name Comments Cancer Maternal Grandfather Júnior Thierry Diabetes Maternal Grandmother Gabrielle Allen Osteoporosis Mother Tracie Sharp Ulcerative colitis Mother Tracie Sharp Relation Name Status Comments Maternal Grandfather Júnior [...] Sign Reading Time Taken Comments Blood Pressure 128/78 10/26/2024 4:14 PM EDT Pulse 79 10/26/2024 4:14 PM EDT Temperature - - Respiratory Rate 16 09/06/2024 3:30 PM EDT Oxygen Saturation - - Inhaled Oxygen Concentration - - Weight 126 kg (278 lb) 10/26/2024 4:14 PM EDT Height 170.2 cm (5' 7 ) 10/26/2024 4:14 PM EDT Body Mass Index 43.54 10/26/2024 4:14 PM EDT Plan of Treatment Upcoming Encounters Date Type Department Care Team (Late st Contact Info) Description 11/16/2024 4:10 PM EDT Office Visit [facility] [address] [place] [address] Serg Mata, DPM FACFAS [address] [place] [address] Health Maintenance Due Date Last Done Comments HPV/Cotest 2014 Cervical Cancer Screening 11/07/2017 Pap Smear 11/07/2017 11/07/2014 Influenza Vaccine (#1) 2024 0, 01/27/2019, 03/02/2018, Additional history exists Procedures Procedure Name Priority Date/Time Associated Diagnosis Comments ECG 12-LEAD Routine 10/05/2024 2:32 PM EDT Preop examination ALL MISCELLANEOUS TEST Routine 12:18 PM EDT ALL BASIC METABOLIC PANEL Routine 10/03/2024 12:18 PM EDT ALL CBC WITH AUTO DIFF Routine 12:18 PM EDT ECG 12-LEAD 10/03/2024 11:53 AM EDT MR FOOT RIGHT WO IV CONTRAST Routine 09/05/2024 10:08 AM EDT Solitary bone cyst of right foot from Last 3 Months Results * ECG 12 lead (10/05/2024 2:32 PM EDT) us Serg Mata DPM FACFAS ECG ORDERABLES Final Re sult [facility] [address] [place] [address], * ALL MISCELLANEOUS TEST (10/03/2024 12:18 PM EDT) MISCELLANEOUS TEST COMMENT . [facility] Comment: Test Ordered: [id number] Drug Screen 13 w/Conf, Serum AMPHETAMINES, [place] Negative ng/mL MX Reference Range: Cutoff:50 BARBITURATES, [place] Negative ug/mL MX Reference Range: Cutoff:0.1 BENZODIAZEPINES, [place] Negative ng/mL MX Reference Range: Cutoff:20 COCAINE / METABOLITE, [place] Negative ng/mL MX Reference Range: Cutoff:25 PHENCYCLIDINE, [place] Negative ng/mL MX Reference Range: Cutoff:8 THC(MARIJUANA) METABOLITE, [place] Negative ng/mL MX Reference Range: Cutoff:5 OPIATES, [place] Negative ng/mL MX Reference Range: Cutoff:5 OXYCODONES, [place] Negative ng/mL MX Reference Range: Cutoff:5 METHADONE, [place] Negative ng/mL MX Reference Range: Cutoff:25 FENTANYL, [place] Negative ng/mL MX Reference Range: Cutoff:1.0 PROPOXYPHENE, [place] Negative ng/mL MX Reference Range: Cutoff:50 MEPERIDINE, [place] Negative ng/mL MX Reference Range: Cutoff:100 TRAMADOL, [place] Negative ng/mL MX Reference Range: Cutoff:50 This test was developed and its performance characteristics determined by [employer]. It has not been cleared or approved by the Food and Drug Administration. Performed at: [employer] [address] [id number] Payable Representative: Tila Hong PhrmD, Phone: [phone] Performed at: - [facility] [address] [id number] Payable Representative: Darien Chapin PhD, Phone: [phone] 10/03/2024 12:1 8 PM EDT 10/03/2024 12:20 PM EDT Narrative CLINIS[facility]NC - 10/08/2024 4:08 PM EDT 101489 Drug Screen 13 with reflex Confirmation (AMP,BAR,BZO,JOSEPH,PCP us Serg Mata DPM FACFAS [facility] Final Re sult [facility] * ALL CBC WITH AUTO DIFF [...] CLINISYNC - 10/03/2024 12:44 PM EDT Serg MUNSON CLINISYND Final Re sult Performing Organization Address [facility] de Phone Number CL[facility]ISYNC TB * (ABNORMAL) ALL BASIC METABOLIC PANEL (10/03/2024 [...] 0.55 - 1.02 mg/dL TBH TBH EGFR-AF [place]IZ[place] >60 >=60 mL/min/1.7 3m 2 TBH TBH EGFR-NON AF [place]IZ[place] >60 >=60 mL/min/1.7 3m 2 TBH BUN CREATININE RATIO 19.6 TBH CALCIUM 9.3 8.5 - 10.1 mg/dL TBH 10/03/2024 12:1 8 PM EDT 10/03/2024 12:20 PM EDT Narrative CLINISYNC - 10/03/2024 12:46 PM EDT Serg MUNSON CLINISYNC Final Re sult Performing Organization Address [facility]/State/[facility] Co de Phone Number CLINISYNC TBH * ECG 12-LEAD (10/03/2024 11:53 AM EDT) Anatomical Region Laterality Modality Other 10/03/2024 11:5 3 AM EDT Narrative 10/03/2024 1:22 [place] [address] Electrocardiograph Report Signed Patient: MAURY PARIKH MR#: [id number] : 1985 Acct:[id number] Age/Sex: 38 / F ADM Date: 10/03/24 Loc: CARD Attending Dr: SERG MATA M.D. Ordering Physician: SERG MATA M.D. 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 Measurements Intervals Mobile Rate: 77 P: 59 WV: 144 QRS: 72 QRSD: 102 T: 56 QT: 381 QTc: 431 Interpretive Statements SINUS RHYTHM Normal ECG Compared to ECG 10/14/2020 21:25:35 No significant changes Electronically Signed On 10-03-2024 13:22:02 EDT by ANJEL GILBERT M.D. Dictated By: ANJEL GILBERT Signed By: 10/03/24 1322 DD/ 1153 TD/TT: Credit Union Teller: Procedure Note Radiology, Radiologist, MD - 10/03/2024 [place] [address] Electrocardiograph Report Signed Patient: MAURY PARIKH RMR#: [id number] : 1985Acct:[id number] Age/Sex: 38 / FADM Date: 10/03/24 Loc: CARD Attending Dr: SERG MATA M.D. Ordering Physician: SERG MATA M.D. 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 Measurements Intervals Mobile Rate: 77 P: 59 WV: 144 QRS: 72 QRSD: 102 T: 56 QT: 381 QTc: 431 Interpretive Statements SINUS RHYTHM Normal ECG Compared to ECG 10/14/2020 21:25:35 No significant changes Electronically Signed On 10-03-2024 13:22:02 EDT by ANJEL GILBERT M.D. Dictated By: ANJEL GILBERT Signed By:10/03/24 1322 DD/ 1153 TD/TT: Credit Union Teller: Serg Mata DPM FACFAS [facility] IMAGING Final Result * [...] remote displaced osteochondral lesion. ELECTRONICALLY SIGNED BY: DO Brooklyn Baker 09/06/2024 9:21 AM EDT EXAM: MR FOOT [...] lesion. ELECTRONICALLY SIGNED BY: Zia Alexander DO Yared Terrazas DP IMG MRI PROCEDURES Final Re sult from Last 3 Months Insurance [facility] Care Teams Case Picker Relationship Specialty Start Date End Date Barry House MD [address] [place] [phone] PCP - General Family Medicine 08/08/24
--- OUTSIDE RECORDS SUMMARY | 2024-11-11 10:04 | XMS_ITS | Patient Health Record ---
Author Organization [facility] in [place] Address [address] [place] [address] Care Team Providers Care Conversion Man Name Role Phone [facility] Primary Care Provider Allergies Allergen (clinical drug ingredient) Drug/Non Drug [...] agent (FN) NSAIDs Unknown Drug Allergy Active Results Component Value Reference Range Notes INSULIN Reviewed date:10/06/2024 06:50:12 PM Interpretation: Performing Lab: Notes/Report: [facility] , Insulin 12.6 2.6-24.9 uIU/mL Performed at: - [facility] [address] [id number] Dehydrator: Darien Chapin PhD, Phone: [phone] Performing Lab: see note LC - [facility] LB PROLACTIN Reviewed date:10/06/2024 06:50:12 PM Interpretation: Performing Lab: Notes/Report: [facility] , Prolactin 18.5 4.8-33.4 ng/mL Performing Lab: see note LC - [facility] LB VITAMIN D 25 [place] Reviewed date:10/05/2024 08:23:43 PM Interpretation: Performing Lab: Notes/Report: [facility] , Vitamin D 17.8 <20 ng/mL Vit D deficient 20-<30 ng/mL Vit D insufficient 30-100 ng/mL Vit D sufficient >100 ng/mL Potential Toxicity Performing Lab: see note - [facility] Testosterone Reviewed date:10/06/2024 06:50:12 PM Interpretation: Performing Lab: Notes/Report: [facility] , Testosterone 16 8-60 ng/dL Performing Lab: see note [facility] Progesterone Reviewed date:10/06/2024 06:50:12 PM Interpretation: Performing Lab: Notes/Report: [facility] , Progesterone 4.4 . ng/mL Follicular phase 0.1 - 0.9 Luteal phase 1.8 - 23.9 Ovulation phase 0.1 - 12.0 First trimester 11.0 - 44.3 Second trimester 25.4 - 83.3 Third trimester 58.7 - 214.0 Postmenopausal 0.0 - 0.1 Performed at: [address] [id number] Dehydrator: Darien Chapin PhD, Phone: [phone] Performing Lab: see note [facility] FSH Reviewed date:10/06/2024 06:50:12 PM Interpretation: Performing Lab: Notes/Report: [facility] , FSH 7.9 . mIU/mL Adult Female Range Follicular phase 3.5 - 12.5 Ovulation phase 4.7 - 21.5 Luteal phase 1.7 - 7.7 Postmenopausal 25.8 - 134.8 Performed at: [address] [id number] Dehydrator: Darien Chapin PhD, Phone: [phone] Performing Lab: see note [facility] Estradiol Reviewed date:10/06/2024 06:50:12 PM Interpretation: Performing Lab: Notes/Report: [facility] , Estradiol 86.8 . pg/mL Adult Female Range Follicular phase 12.5 - 166.0 Ovulation phase 85.8 - 498.0 Luteal phase 43.8 - 211.0 Postmenopausal <6.0 - 54.7 1st trimester 215.0 - >4300.0 Paolo ECLIA methodology Performing Lab: see note [facility] TSH Reviewed date:10/05/2024 05:23:23 PM Interpretation: Performing Lab: Notes/Report: [facility] , Thyroid Stimulating Hormone 0.790 0.358-3.740 uIU/mL Performing Lab: see note ML - [facility] LB T4 Reviewed date:10/05/2024 05:23:23 PM Interpretation: Performing Lab: Notes/Report: [facility] , T4 Thyroxine 7.40 4.80-13.90 ug/dL Performing Lab: see note ML - [facility] LB LIPID PROFILE Reviewed date:10/05/2024 05:23:23 PM Interpretation: Performing Lab: Notes/Report: [facility] , Triglycerides 69 <=150 mg/dL Cholesterol 162 <=200 mg/dL HDL Cholesterol 60 40-60 mg/dL > or =60 mg/dl - LOW CARDIOVASCULAR RISK <40 mg/dl - HIGH CARDIOVASCULAR RISK LDL Cholesterol Calculated 88.2 <100 mg/dl OPTIMAL 100-129 mg/dl NEAR OR ABOVE OPTIMAL 130-159 mg/dl BORDERLINE HIGH 160-189 mg/dl HIGH >190 mg/dl VERY HIGH VLDL CHOLESTEROL 13.8 Chol HDL Ratio 2.7 3.3 - 4.4 LOW RISK 4.4 - 7.1 AVERAGE RISK 7.1 - 11.0 MODERATE RISK >11.0 HIGH RISK Performing Lab: see note ML - [facility] LB IRON Reviewed date:10/05/2024 05:23:22 PM Interpretation: Performing Lab: Notes/Report: [facility] , Iron 168.0 50.0-170.0 ug/dL Performing Lab: see note ML - [facility] LB GLYCOHEMOGLOBIN A1C Reviewed date:10/05/2024 05:23:22 PM Interpretation: Performing Lab: Notes/Report: [facility] , Glycohemoglobin A1C 5.6 4.5-6.2 % ADA RECOMMENDED LIMIT 4.0 - 6.0 ADA THERAPEUTIC TARGET < 7.0 ACTION SUGGESTED > 7.0 Estimated Average Glucose 114 Performing Lab: see note ML - [facility] LB FREE T3 Reviewed date:10/05/2024 05:23:22 PM Interpretation: Performing Lab: Notes/Report: [facility] , Free T3 3.15 2.18-3.98 pg/mL Performing Lab: see note ML - [facility] LB CBC AUTO DIFF Reviewed date:10/05/2024 05:23:22 PM Interpretation: Performing Lab: Notes/Report: [facility] , White Blood Count 6.1 4.0-11.0 10 3/uL Red Blood Count 4.27 4.20-5.40 10 6/uL Hemoglobin 13.2 12.0-16.0 g/dL Hematocrit 38.3 36.0-48.0 % Mean Corpuscular Volume 89.7 81.0-99.0 fL Mean Corpuscular Hemoglobin 30.9 26.7-34.0 pg Mean Corpuscular HGB Conc 34.5 29.9-35.2 g/dL Red Cell Distribution Width 12.1 11.0-15.0 % Platelet Count 196 150-450 10 3/uL Mean Platelet Volume 10.7 9.5-13.5 fL Neutrophils Percent Auto 62.1 43.0-75.0 % Lymphocytes Percent Auto 28.2 20.5-60.0 % Monocytes Percent Auto 7.4 1.7-12.0 % Eosinophils Percent Auto 1.6 0.9-7.0 % Basophils Percent Auto 0.5 0.2-2.0 % Immature Granulocytes Pct Auto 0.2 0.0-0.5 % Neutrophils Absolute Auto 3.8 1.4-6.5 10 3/uL Lymphocytes Absolute Auto 1.7 1.2-3.8 10 3/uL Monocytes Absolute Auto 0.5 0.3-0.8 10 3/uL Eosinophils Absolute Auto 0.1 0.0-0.7 10 3/uL Basophils Absolute Auto 0.0 0.0-0.1 10 3/uL Immature Granulocytes Abs Auto 0.01 0.00-0.03 10 3/uL Performing Lab: see note ML - [facility] LB ECG 12 lead Reviewed date:10/03/2024 02:08:15 PM Interpretation: Performing Lab: Notes/Report: Source Facility: [facility]-[address] [place] [address] [place] [address] Electrocardiograph Report Signed Patient: MAURY FRIED MR#: [id number] : 1985 Acct:[id number] Age/Sex: 38 / F ADM Date: 10/03/24 Loc: CARD Attending Dr: JESUS BLANCA M.D. Ordering Physician: JESUS BLANCA M.D. Date of Service: 10/03/24 Procedure(s): ECG 12 lead Accession Number(s): [id number] cc: [facility] Test Date: 2024-10-03 Pat Name: MAURY FRIED Department: Room: - Gender: Female Manager Solution: : 1985 Requested By: Order Number: [id number] Cedric MD: ANJEL GILBERT M.D. Measurements Intervals [place] Rate: 77 P: 59 NV: 144 QRS: 72 QRSD: 102 T: 56 QT: 381 QTc: 431 Interpretive Statements SINUS RHYTHM Normal ECG Compared to ECG 10/14/2020 21:25:35 No significant changes Electronically Signed On 10-03-2024 13:22:02 EDT by ANJEL GILBERT M.D. Dictated By: ANJEL GILBERT Signed By: 10/03/24 1322 DD/ 1153 TD/TT: [employer] Developer: [place] [address] Electrocardiograph Report Signed Patient: ISAAC FRIED MR#: [id number] : 1985 Acct:[id number] Age/Sex: 38 / F ADM Date: 10/03/24 Loc: CARD Attending Dr: JESUS DE LA ROSA M.D. Ordering Physician: JESUS BLANCA M.D. Date of Service: 10/03/24 Procedure(s): ECG 12 lead Accession Number(s): [id number] cc: [facility] Test Date: 2024-10-03 Pat Name: MAURY HO Department: 17 Room: - Gender: Female Manager Solution: : 1985 Requ ested By: Order Number: [id number] Cedric MD: ANJEL GILBERT M.D. Measurements Intervals [place] Rate: 77 P: 59 NV: 144 QRS: 72 QRSD: 102 T: 56 QT: 381 QTc: 431 Interpretive Statements SINUS RHYTHM Normal ECG Compared to ECG 10/14/2020 21:25:35 No significant changes Electronically Jesusita d On 10-03-2024 13:22:02 EDT by ANJEL GILBERT M.D. Dictated By: ANJEL GILBERT Signed By: 10/03/24 1322 DD/ 1153 TD/TT: [employer] Developer: PROF PAULA Valverde ([facility]) Reviewed date:10/03/2024 12:55:49 PM Interpretation: Performing Lab: Notes/Report: [facility] , Sodium 140 136-145 mmol/L Potassium 3.5 3.5-5.1 mmol/L Chloride 102 98-107 mmol/L Carbon Dioxide 26.7 21.0-32.0 mmol/L Anion Gap 14.8 Glucose 129 74-106 mg/dL Blood Urea Nitrogen 11.0 7.0-18.0 mg/dL Creatinine 0.56 0.55-1.02 mg/dL Estimated GFR ( [place] >60 >=60 mL/min/1.73m 2 Estimated GFR (Non- Dix[place] >60 >=60 mL/min/1.73m 2 BUN Creatinine Ratio 19.6 Calcium 9.3 8.5-10.1 mg/dL Performing Lab: see note ML - [facility] LB LAB TESTING Reviewed date:10/09/2024 12:13:18 PM Interpretation: Performing Lab: Notes/Report: [id number] Drug Screen 13 with reflex Confirmation (AMP,BAR,BZO,JOSEPH,PCP [facility] , Miscellaneous Test COMMENT . Test Ordered: [id number] Drug Screen 13 w/Conf, Serum [place]IN[place], [place] [...] the Food and Drug Administration. Performed at: [employer] [address] [place] [id number] Dehydrator: Tila Hong [facility], Phone: [phone] Performed at: [facility] [address] [id number] Dehydrator: Darien Chapin PhD, Phone: [phone] Performing Lab: see note - [facility] LB CBC AUTO DIFF Reviewed date:10/03/2024 12:55:49 PM Interpretation: Performing Lab: Notes/Report: [facility] , White Blood Count 5.8 4.0-11.0 10 3/uL Red Blood Count 4.42 4.20-5.40 10 6/uL Hemoglobin 13.5 12.0-16.0 g/dL Hematocrit 40.0 36.0-48.0 % Mean Corpuscular Volume 90.5 81.0-99.0 fL Mean Corpuscular Hemoglobin 30.5 26.7-34.0 pg Mean Corpuscular HGB Conc 33.8 29.9-35.2 g/dL Red Cell Distribution Width 11.9 11.0-15.0 % Platelet Count 199 150-450 10 3/uL Mean Platelet Volume 10.6 9.5-13.5 fL Neutrophils Percent Auto 67.8 43.0-75.0 % Lymphocytes Percent Auto 25.0 20.5-60.0 % Monocytes Percent Auto 4.8 1.7-12.0 % Eosinophils Percent Auto 2.1 0.9-7.0 % Basophils Percent Auto 0.3 0.2-2.0 % Immature Granulocytes Pct Auto 0.0 0.0-0.5 % Neutrophils Absolute Auto 4.0 1.4-6.5 10 3/uL Lymphocytes Absolute Auto 1.5 1.2-3.8 10 3/uL Monocytes Absolute Auto 0.3 0.3-0.8 10 3/uL Eosinophils Absolute Auto 0.1 0.0-0.7 10 3/uL Basophils Absolute Auto 0.0 0.0-0.1 10 3/uL Immature Granulocytes Abs Auto 0.00 0.00-0.03 10 3/uL Performing Lab: see note ML - [facility] LB PROF 14(COMP METB) Reviewed date:10/05/2024 05:23:23 PM Interpretation: Performing Lab: Notes/Report: [facility] , Sodium 140 136-145 mmol/L Potassium 3.9 3.5-5.1 mmol/L Chloride 102 98-107 mmol/L Carbon Dioxide 31.1 21.0-32.0 mmol/L Anion Gap 10.8 Glucose 101 74-106 mg/dL Blood Urea Nitrogen 11.0 7.0-18.0 mg/dL Creatinine 0.56 0.55-1.02 mg/dL Estimated GFR ( [place] >60 >=60 mL/min/1.73m 2 Estimated GFR (Non- Dixie >60 >=60 mL/min/1.73m 2 BUN Creatinine Ratio 19.6 Calcium 9.0 8.5-10.1 mg/dL Bilirubin Total 1.0 0.2-1.0 mg/dL Aspartate Amino Transferase 19 15-37 U/L Alanine Aminotransferase 28 14-59 U/L Alkaline Phosphatase 53 46-116 U/L Total Protein 7.2 6.4-8.2 g/dL Albumin Level 3.9 3.4-5.0 g/dL Globulin 3.3 Albumin Globulin Ratio 1.2 Performing Lab: see note ML - [facility] BNP Reviewed date:10/05/2024 05:23:23 PM Interpretation: Performing Lab: Notes/Report: [facility] , NT Pro B Type Natriuretic Pept 43.0 <=450.0 pg/mL Performing Lab: see note ML - [facility] LB Reason For Referral No Information Medications Medication SIG (Take, Route, Frequency, Duration) Notes Start Date End Date Status Brixadi 64 MG/0.18ML 0.18 mL Subcutaneou s monthly Active Abilify 30 MG 1 tablet Orally Once a day for 90 days Active Nicotine 21 MG/24HR 1 patch to skin [...] capsule Orally Once a day 10/06/2024 Active Potassium Chloride ER 10 MEQ 1 capsule with food Orally Twice a day for 30 days 11/04/2024 Active Social History Tobacco Use: Social History Observation Description Date Details (start date - stop date) Current Smoker NA - NA Tobacco Use/Smoking Question Answer Notes Patient is a current smoker Alcohol Screen (Audit-C) Question Answer Notes Did you have a drink containing alcohol in the p ast year? No Points 0 Interpretation Negative AUDIT-C (Standard) Question Answer Notes Did you have a drink containing alcohol in the p ast year? No Points 0 Interpretation Negative Problems Problem Type SNOMED Code ICD Code Onset Dates Problem Status W/U Status Risk Notes Problem 27626429 Left foot pain (729.5) Active confirmed Problem Carpal tunnel syndrome (00741250) Carpal tunnel syndrome (G56.00) Active confirmed Problem Edema (23252109) Edema (R60.9) Active confirmed Problem Anemia (997100436) Anemia (D64.9) Active confirmed Problem Depression (684711479) Depression (F32.9) Active confirmed Problem Insomnia (875478562) Insomnia (G47.00) Active confirmed Problem Eczema (08483581) Eczema (L30.9) Active confirm ed Problem 018514920 Lumbar radiculopathy (M54.16) Active confirmed Problem Pain in limb (41928011) Foot pain, left (M79.672) Active confirmed Problem Arthralgia (32314869) Arthralgia (M25.50) Active confirmed Problem Dysmenorrhea (104673609) Dysmenorrhea (N94.6) Active confirmed Problem Bipolar affective disorder (72490745) Bipolar affective disorder (F31.9) Active confirmed Problem Chronic hepatitis C (847738519) Chronic hepatitis C (B18.2) Active confirmed Problem Mood disorder (14582702) Mood disorder (F39) Active confirmed Problem Herpes simplex (32826264) Herpes simplex (B00.9) Active confirmed Problem Umbilical hernia (900660680) Umbilical hernia (K42.9) Active confirmed Problem Schizophrenia (36135746) Schizophrenia (F20.9) Active confirmed Problem Left inguinal hernia (609994351) Left inguinal hernia (K40.90) Active confirmed Problem Overweight (339392865) Over weight (E66.3) Active confirmed Problem Generalized abdominal pain (959021822) Abdominal pain, generalized (R10.84) Active confirmed Problem Opioid abuse (8526612) Heroin abuse (F11.10) Active confirmed Problem Cannabis abuse (22932506) Cannabis abuse (F12.10) Active confirmed Problem Crohn's disease (65498403) Crohn's disease (K50.90) Active confirmed Problem Psychoactive substance dependence (4518004) Polysubstance (excluding opioids) dependence (F19.20) Active confirmed Problem Sterilization procedure (993335877) Sterilization (Z30.2) Active confirmed Problem Inflammatory disorder of breast (881170313) Abscess of the breast and nipple (N61.1) Active confirmed Problem Sleep walking disorder (90879057) Sleep walking disorder (F51.3) Active confirmed Problem Breast mass (73239964) Breast mass (N63.0) Active confirmed Problem Computed tomography result abnormal (120551656) Abnormal CT scan (R93.89) Active confirmed Problem Low back pain (362598161) Low back pain, unspecified (M54.50) Active confirmed Vital Signs Blood pressure diastolic 78 mm Hg 11/04/2024 Height 67 in 11/04/2024 Blood pressure systolic 130 mm Hg 11/04/2024 Weight 309 lbs 11/04/2024 BMI 48.39 kg/m2 11/04/2024 Procedures Procedure Date Ordered Date Performed Result Body Sit e CARDIO Echocardiogram 11/04/2024 N/A Encounters Encounter Location Date Provider Diagnosis [facility] [address] [place] [address] 11/22/[address] scan R93 .89 [facility] [address] [place] [address] 10/05/2024 [facility] [address] [place] [address] 10/05/2024 [facility] [address] [place] [address] 10/06/2024 [facility] [address] [place] [address] 10/10/2024 Bryant Liy [facility] [address] [place] [address] 11/04/2024 [facility] [address] [place] [address] 10/03/2024 [facility] Edema R60.9 ; Dysmenorrhea N94.6 ; Bipolar affective disorder F31.9 and Insomnia G47.00 [facility] [address] [place] [address] 11/04/2024 [facility] Edema R60.9 Assessments Encounter Date Diagnosis (ICD Code) Assessment Notes Treatment Notes Treatment Clinical Notes Section Notes 10/03/2024 Edema (ICD-10 - R60.9) 10/03/2024 Dysmenorrhea (ICD-10 - N94.6) 11/04/2024 Edema (ICD-10 - R60.9) 11/22/[address] scan (ICD-10 - R93.89) 10/03/2024 Bipolar affective disorder (ICD-10 - F31.9) 10/03/2024 Insomnia (ICD-10 - G47.00) Plan Of Treatment Pending Test Test Name Order Date HEMOGLOBIN A1C (GLYCO) 10/03/2024 IRON, TOTAL 10/03/2024 LIPID PANEL (CHOL/TRIG/HDL/LDL) 10/04/19 25 VITAMIN D, 25 LEVEL (TOTAL) 10/03/2024 XR Foot LT (3 views) * 08/29/2022 US Breast Limited RT 09/04/2022 MAMM MAMMOGRAM CAD DIAGNOSTIC 11/13/2022 CARDIO Echocardiogram 11/04/2024 Insulin Level 10/03/2024 Ultrasound 10/15/2022 [facility] - PROLACTIN 10/03/2024 BNP 11/04/2024 CBC AUTO DIFF 11/04/2024 ESTRADIOL 10/03/2024 PROF 14(COMP METB) 11/04/2024 PROGESTERONE 10/03/2024 TESTOSTERONE, TOTAL 10/03/2024 US BREAST RIGHT LIMITED 11/13/2022 US PELVIS 11/22/2023 VC VENOUS REFLUX CRUZ LMT 11/04/2024 THYROID PANEL (T4/TSH/FREE T3) CMP (COMP MET CAIN) w/eGFR CKD-EPI 2024 CBC WITH DIFF 10/03/2024 Medications Administered Medication Instructions Date of Administration Dosage Notes Ceftriaxone 1 gram 12/10/2022 1 g 1 gm Kenalog-40 09/17/2022 120 mg 120 Ketorolac Tromethamine 09/17/2022 60 mg 60 Medical (General) History Medical History History ICD Code Nipple Discharge Duodenitis Syncope Over weight E66.3 Abdominal pain, left lower quadrant R10. 32 Abdominal pain, generalized R10.84 Sleep walking disorder F51.3 Inflamed sebaceous cyst L72.3 Acute recurrent frontal sinusitis J01.11 Contusion of nose, initial encounter S00 .33XA Herpes simplex B00.9 Chronic hepatitis C B18.2 Cellulitis of face L03.211 Heroin abuse F11.10 Suicidal ideation R45.851 Polysubstance (excluding opioids) depend ence F19.20 Mood disorder F39 Crohn's disease K50.90 Carpal tunnel syndrome G56.00 Schizophrenia F20.9 Umbilical hernia K42.9 Headache, unspecified R51.9 Insomnia G47.00 Eczema L30.9 Cannabis abuse F12.10 Arthralgia M25.50 Low back pain, unspecified M54.50 Bipolar affective disorder F31.9 Anemia D64.9 Depression F32.9 Dysmenorrhea N94.6 Surgical History Surgery Date(Month/Year) Gallbladder Removal Dialtion and [place] Nondisplaced fracture of base of fifth m etatarsal bone- Right Hand Breast Surgery- Right, Dr. Vuong Sterilization Excision of Granuloma and scar tissue Rt . breast Rt. ankle scope. With Dr. Blanca 10/12
--- OUTSIDE RECORDS SUMMARY | 2024-11-11 10:04 | XMS_ITS | Clinical Summary ---
Author Organization [employer] [facility] tem Address [id number] [address] [place] [address] Care Team Providers Care Material Handling Crew Supervisor Name Role Phone No Pcp, No Pcp [...] represent a complete record from that organization. ftogpluz-biaz-Q A-calcium &mins (THERAGRAN-M) 9 mg iron-400 mcg [...] 3:45 PM 10/08/2017 5:38 PM Care Teams Material Handling Crew Supervisor Relationship Specialty Start Date End Date No Pcp, [place] [address] PCP - General Family Medicine 10/06/17
--- OUTSIDE RECORDS SUMMARY | 2024-11-11 10:16 | XMS_ITS | CCD ---
Author Organization [facility] CliniSymo Care Team Providers Care Brick Mason Name Role Phone Guille Abrams Unavailable Sherin House Primary Care Physician Krys Ramos Unavailable Unavailable HOY ., DR [...] Unavailable HOY ., DR DUFF Admitting Unavailable ZACHARY, DR GUILLE Rojo Consulting Unavailable HOY ., DR DUFF Primary Care Unavailable NABOR ., DR DAI Consulting Unavailable NABOR ., DR DAI Attending Unavailable NABOR ., DR DAI Admitting Unavailable NILL, Miguelina Swanson Attending Unavailable Sherin House Referring Unavailable NILL, Miguelina R Attending Unavailable NILL, Miguelina R Attending Unavailable NILL, Miguelina R Attending Unavailable NILL, Miguelina R Attending Unavailable NILL, Miguelina R Attending Unavailable NILL, Miguelina R Attending Unavailable NILL, Miguelina R Attending Unavailable NILL, Miguelina Swanson Attending Unavailable NILL, Miguelina R Admitting Unavailable NILL, Miguelina Swanson Attending Unavailable NILL, Miguelina Swanson Attending Unavailable NILL, Miguelina Swanson Attending Unavailable NILL, Miguelina Swanson Attending Unavailable Sherin House Referring Unavailable MD Sherin House Primary Care Provider DO Walter Guillaume Emergency Provider [phone] Sherin House Primary Care Unavailable Walter Guillaume Attending Unavailable Walter Guillaume Admitting Unavailable DARRICK BENITEZ Admitting Unavailable DARRICK BENITEZ Attending Unavailable SHERIN HOUSE Primary Care Unavailable DARRICK BENITEZ Admitting Unavailable DARRICK BENITEZ Attending Unavailable SHERIN HOUSE Primary Care Unavailable SHERIN HOUSE Primary Care Unavailable MIGUELINA DOMINGUEZ Attending Unavailable DARRICK BENITEZ Consulting Unavailable Sherin House MD Primary Care Provider [phone] Unallocated , [facility] MD Primary Care Provider [phone] Sherin House MD Primary Care Provider [phone] SHERIN HOUSE Primary Care Unavailable David Rayo Attending Unavailable David Rayo Admitting Unavailable SHERIN HOUSE Primary Care Unavailable David Rayo Attending Unavailable YARED TERRAZAS Attending Unavailable YARED TERRAZAS Referring Unavailable YARED TERRAZAS Referring Unavailable AYRED TERRAZAS Attending Unavailable YARED TERRAZAS Referring Unavailable YARED TERRAZAS Attending Unavailable SERG MATA Attending Unavailable DOLSERG ALMEIDA Attending Unavailable DOLSERG ALMEIDA Attending Unavailable DOLSERG ALMEIDA Attending Unavailable Allergies Allergy Classification Reported Allergen(s) Allergy Type Date of Onset Reaction(s) Facility (2 sources) Acetaminophen Drug Allergy Unknown [facility] Other (12 sources) Amitriptyline; Translations: [Amitriptyline] Drug Allergy 11-07-19 13 Eruption of skin (disorder) [facility] (12 sources) Cephalexin; Translations: [cephalexin] Drug Allergy 10-06-19 18 Unknown, Rash [facility] [place] (9 sources) Desvenlafaxine; Translations: [desvenlafaxine] Drug Allergy 11-21-19 24 rash, Eruption of skin (disorder) [facility] (13 sources) Erythromycin; Translations: [erythromycin] Drug Allergy 06-08-19 13 rash, Anaphylaxis (disorder) [facility] (3 sources) Ibuprofen Drug Allergy 11-21-[address] [facility] (13 sources) NSAIDs; Translations: [Non-steroidal anti-inflammatory agent (substance)] Propensity to adverse reactions 09-07-19 13 Anaphylaxis (disorder) [facility] (6 sources) Propranolol Drug Allergy 09-07-[address] [facility] (3 sources) Sulfacetamide Drug Allergy 11-21-19 24 Unknown, Unknown Reaction [facility] (10 sources) Sulfamethoxazole / Trimethoprim; Translations: [sulfamethoxazole-t rimethoprim] Drug Allergy 10-06-19 18 Unknown [facility] [place] (9 sources) Morphine; Translations: [morphine] Drug Allergy 10-06-19 18 Unknown [facility] [place] (9 sources) pregabalin; Translations: [pregabalin] Drug Allergy 10-07-19 18 Swelling [facility] [place] (7 sources) topiramate; Translations: [topiramate] Drug Allergy Unknown (qualifier value) [facility] [place] (1 source) Acetaminophen Drug Allergy [facility] (2 sources) Amitriptyline Drug Allergy 11-21-19 Unknown Reaction [facility] (2 sources) Cephalexin; Translations: [Keflex] Drug Allergy [facility] (4 sources) Desvenlafaxine; Translations: [Pristiq] Drug Allergy 11-07-19 13 [facility] (2 sources) Ketorolac; Translations: [Toradol] Drug Allergy [facility] (2 sources) NSAIDs Drug allergy (disorder) 11-07-19 13 [facility] (2 sources) pregabalin Drug Allergy 11-06-19 17 [facility] (2 sources) Sulfamethoxazole / Trimethoprim; Translations: [Bactrim] Drug Allergy [facility] (2 sources) E.E.S. Drug allergy (disorder) 11-07-19 13 [facility] (1 source) Sulfamethoxazole / Trimethoprim; Translations: [sulfamethoxazole-t rimethoprim] Drug Allergy 10-06-19 18 [facility] Rep[facility] (1 source) Tylenol Regular Strength; Translations: [Tylenol Regular Strength] Propensity to adverse reactions (disorder) [facility] (2 sources) Doxycycline; Translations: [doxycycline] Drug Allergy 11-21-[address] [facility] (2 sources) Sulfamethoxazole; Translations: [sulfamethoxazole] Drug Allergy 11-21-19 [facility] (2 sources) Sulfonamides (Antibiotic); Translations: [Sulfa (Sulfonamide Antibiotics)] Allergy to substance 11-21-19 [facility] (2 sources) Trimethoprim; Translations: [trimethoprim] Drug Allergy 11-21-19 [facility] (2 sources) erythromycin base; Translations: [erythromycin base] Allergy to substance 11-21-19 Vomiting, rash [facility] (2 sources) NSAIDS (Non-Steroidal Anti-Inflamma; Translations: [NSAIDS (Non-Steroidal Anti-Inflamma] Allergy to substance 11-21-[address] [facility] (1 source) Amitriptyline Drug Allergy 11-21-19 [facility] (1 source) Cephalexin Drug Allergy 11-21-19 [facility] (1 source) Desvenlafaxine Drug Allergy 11-21-[address] [facility] (1 source) Ibuprofen Drug Allergy 11-21-19 [facility] (1 source) Propranolol Drug Allergy 11-21-19 [facility] (1 source) Sulfacetamide Drug Allergy 11-21-19 [facility] (3 sources) Amitriptyline Drug Allergy 09-07-19 13 [facility] (3 sources) Desvenlafaxine Drug Allergy 01-21-20 13 [facility] (2 sources) Ketorolac Drug Allergy 10-07-19 18 [facility] (1 source) Acetaminophen; Translations: [Tylenol] Drug Allergy [facility] Repository Medications Current Medications Medication Drug [...] 12/17/2023 12/17/2023 Discontinued (Stop Taking at Discharge) acetaminophen 325 mg / oxyCODONE hydrochloride 5 mg oral tablet (4 sources) Opioid Agonist Start: 10-12-2024 End: 10-17-2024 oxyCODONE-acetamino phen (Percocet) 5-325 MG tablet Indications: Pain Take 1 tablet by mouth every 6 (six) hours if needed for severe pain for up to 5 days TAKE 1 PILL P.O. Q.6H P.R.N. PAIN 15 tablet 10/12/2024 10/17/2024 Active Start: 11-21-2023 End: 11-21-2023 oxyCODONE-acetaminophen (PER COCET) 5-325 MG per tablet 1 tablet Start: [...] tablet 0 12/28/2014 11/21/2023 Discontinued (LIST CLEANUP) albuterol 0.833 mg/ml / ipratropium bromide 0.167 [...] day(s), # 28 cap(s), Refills(s) 1, Pharmacy: [facility] #[id number], 167, cm, 12/11/22 14:03:00 EDT, Height/Length Dosing, [...] 08, 2021 1:00am Start: 03-08-2021 Aripiprazole ( Abilifsusan Maintena) 300 mg Suspension,Extended Rel Recon Active [...] Status: Ordered take 1 tablet by bouchra th every twenty-four hours Gabapentin 800 MG 1 [...] PACU only meloxicam 15 mg oral tablet (20 sources) Nonsteroidal Anti-inflammatory Drug Start: 07-25-2024 Mobic 15 MG tablet 07/25/2024 Active methocarbamol 750 mg oral tablet (1 source) Muscle Relaxant Start: 12-17-2023 End: 12-27-2023 take 1 tablet by mouth four times daily methocarbamol (ROBAXIN-750) 750 MG tablet Take 1 tablet by mouth 4 times daily for 10 days 40 tablet 12/17/2023 12/27/2023 Active methylPREDNISolone (20 sources) Corticosteroid Start: 08-29-2024 methylPREDNISolone (Medrol Dospak) [...] Daily, # 30 tab(s), Refills(s) 11, Pharmacy: [address], 170, cm, 05/27/21 12:27:00 EST, Height/Length [...] mg , Oral, ONCE, 1 dose, On Thu12/17/23 at 1130 Start: 12-17-2023 End: 12-17-2023 take [...] q8hr, # 6 tab(s), Refills(s) 0, Pharmacy: [facility] #[id number] Start Date: 11/12/16 Status: Ordered Completed/Discontinued Medications Medication Drug Class(es) Dates Sig (Normalized) Sig (Original) acetaminophen 500 mg oral tablet (1 source) Start: 11-21-2023 End: 11-21-2023 acetaminophen (TYLENOL) tablet 1,000 mg cetirizine hydrochloride 10 mg oral tablet (1 [...] End: 11-30-2023 loratadine (CLARITIN) 10 MG tablet 10/03/2014 11/30/2023 Discontinued (Therapy completed) mesalamine 500 [...] hepatitis C; Translations: [Chronic viral hepatitis C] 04-10-2023 Chronic Miscellaneous mental health disorders (8 sources) [...] UNSPECIFIED] Onset: 02-01-2022 Chronic Other acquired deformities (8 sources) Contracture of joint of right ankle; Translations: [Contracture, right ankle] 08-08-2024 Chronic Other bone disease and musculoskeletal deformities (6 sources) Osteochondritis dissecans of right ankle; Translations: [...] Onset: 09-02-2022 Episodic Other connective tissue disease (10 sources) Synovitis and tenosynovitis; Translations: [Other synovitis [...] 05-16-2022 Episodic Other aftercare (1 source) Other terminologist (current) drug therapy; Translations: [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 DRUG THERAPY] Onset: 04-07-2022 Episodic Other [...] WITH AUTO DIFFon BASOPHILS ABSOLUTE AUTO 0 [facility] Basophils/100 WBC (Bld) 0.3 % 0.2 - 2.0 % [facility] Eosinophils/100 WBC (Bld) 2.1 % 0.9 - 7.0 % [facility] Erythrocyte distribution width (RBC) [Ratio] 11.9 % 11.0 - 15.0 % [facility] Hematocrit (Bld) [Volume fraction] 40 % 36.0 - 48.0 % [facility] Hemoglobin (Bld) [Mass/Vol] 13.5 g/dL 12.0 - 16.0 g/dL [facility] IMMATURE GRANULOCYTES ABS AUTO 0 [facility] Immature granulocytes/100 WBC (Bld) 0 % 0.0 - 0.5 % [facility] LYMPHOCYTES ABSOLUTE AUTO 1.5 [facility] Lymphocytes/100 WBC (Bld) 25 % 20.5 - 60.0 % [facility] MCH (RBC) [Entitic mass] 30.5 pg 26.7 - 34.0 pg [facility] MCHC (RBC) [Mass/Vol] 33.8 g/dL 29.9 - 35.2 g/dL [facility] MCV (RBC) [Entitic vol] 90.5 fL 81.0 - 99.0 fL [facility] MONOCYTES ABSOLUTE AUTO 0.3 [facility] Monocytes/100 WBC (Bld) 4.8 % 1.7 - 12.0 % [facility] NEUTROPHILS ABSOLUTE AUTO 4 [facility] Neutrophils/100 WBC (Bld) 67.8 % 43.0 - 75.0 % [facility] Platelet mean volume (Bld) [Entitic vol] 10.6 fL 9.5 - 13.5 fL [facility] TBH EO # 0.1 [facility] PLT [facility] 4.42 [facility] WBC 5.8 [facility] ECG 12-LEADon 10-03-2024 [place] [address] Electrocardiograph Report Signed Patient: TIARA PARIKH MR#: [id number] : 1985 Acct:[id number] Age/Sex: 38 / F ADM Date: 10/03/24 Loc: CARD Attending Dr: SERG MATA M.D. Ordering Physician: SERG MATA M.D. 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 Measurements Intervals [place] Rate: 77 P: 59 MN: 144 QRS: 72 QRSD: 102 T: 56 QT: 381 QTc: 431 Interpretive Statements SINUS RHYTHM Normal ECG Compared to ECG 10/14/2020 21:25:35 No significant changes Electronically Signed On 10-03-2024 13:22:02 EDT by ANJEL GILBERT M.D. Dictated By: ANJEL GILBERT Signed By: 10/03/24 1322 DD/ 1153 TD/TT: Child Psychometrist: [facility] Radiology, Radiologist, - 10/03/2024 The [place] [id number] Electrocardiograph Report Signed Patient: TIARA PARIKH MR#: [id number] : 1985 Acct:[id number] Age/Sex: 38 / F ADM Date: 10/03/24 Loc: CARD Attending Dr: SERG MATA M.D. Ordering Physician: SERG MATA M.D. 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 Measurements Intervals [place] Rate: 77 P: 59 MN: 144 QRS: 72 QRSD: 102 T: 56 QT: 381 QTc: 431 Interpretive Statements SINUS RHYTHM Normal ECG Compared to ECG 10/14/2020 21:25:35 No significant changes Electronically Signed On 10-03-2024 13:22:02 EDT by ANJEL GILBERT M.D. Dictated By: ANJEL GILBERT Signed By: 10/03/24 1322 DD/ 1153 TD/TT: Child Psychometrist: [facility] [employer] Radiology Study observation (narrative) [facility] ECG 12-LEADOrdered By: Radio logist Radiology on 10-03-2024 [facility] [employer] Work Phone: Coding Summaryon 09-23-2024 Coding Summary HTMLBase 64 EtsjdlqrDRj6rIp+PGhlYW Q+FF2YSPHbV90jtNLnmT6t Q0GFTMxIJtrrUMSIPNgXKh MgazYeCH1izBQsSKHt IC8+SM3tGNWlAujdrVUap6 I5jSQ2J00iyq3fTXqvqHI0 ZEShNuOpdqlhj9xnoLw7BN cuNmluOyBt GTEdvA42LYX7kN97Or89vE LayOYpu6oqqNl9FnQvPGTn JBU0vXeaGXxls9OnILPpR1 7lzVUly5S1 TQOgsEfssBIeTxYdwXT4gT 3mVCboyebon0jigtkkRbh7 ke91rTRid2H2kUH6Q7Wgtv W1JYZszAEd DduchEQJvM7ukmvmc0mpmx ymFyIjBEDoYSy9MDb8XSAx aJyzOvZnDO62MZC9LWNlhj JdB9YaCGYg xEtbAnG5d0N5Kx6SM1FIAe waA7OBJLQHFIoxtWC+PC90 hr74Q9WbMpwvWqm1DXNjWX J2aTE3iD6z WGRrKRpzc8Q8cSR8Y5Xizn Xjcf1uz4pwQOMrSQvqO82o lNThv4D1JICnjFN5HUMoyL yvMgRoeB90 Oyc+KUYcgKyfv0SfOstke3 jho1omlVc6GulrUUWjmuKa bGevXWK3c1FsRi2oGBMyvM Y2hOA6xV3z BpDdMqX8WKcmJ213RiKgoO OsAtqzL62tV4DrzLS+PHRy Zmq5MFIefItuTC0sB3TkSQ RpbmctbGVm rInaYM6eGBIsmuiuQMAfhA 2aWVLmH4t8SrFjUvC1JAio D7IuRELcinltOb68hW3mMs TiYqS0BSxp S3VpfcC4QILggXBkIHvyRP Q3Y81hc8L0XORbTVMhYBL8 oXA8sH2qtXpstagujJCdiX sgdmVydGlj KMrtWQbxI417DYMbuBosOl NvZGluZyBEYXRlOiAgMDYv MDYvMjAyNTwvdGQ+PHRkIH G9iVwjDWIt oTVfRTcsMp9azCiniChiWW 9rHBXybahdXRUufD8rZEFv iTItpJxhWK8jDLHfyawme5 82DpXuEPZ6 LOLzxUDdZ6BlyI6kWfDzEY CyMTAcD2KpyTEjABfzI408 BIreEiF1JAUghoAfA7KsQC FsaWduOiB0 q2O1Mk3Ce4WzqnftB6TlaF ZwXvZvHapsZHj5I4FzLgrh dHI+GU90YMBaFK48TUi3AJ G4vCihQGxy SQBbD8VreI9wZyNqBTObUC RkOyc+PHRhYmxlIHdpZHRo OHzlAXSsDjAaqHyvQR2oAw 9yZGVyLWNv fZtpuOKmQoJtp2xtRUXxNW ynLJ9gmRhzA0ZxdDM5VTOr k4p4Lo23M25lL1UegVY+PG LpaIX1vRO8 wE9xWbWtTjM8ELccI890Gs WdhAFaXuarv2eng9drrVp1 WxA0KZIusfKhnWkwFBH4v7 LwGy10H52y IHdpZHRoPSIxNSUiIHZhbG jssj5pzS9tPh9+PGNvbCB3 tNE6qP4aEkJcQxK6GRmaB1 49InRvcCIv Muwho4yhj4sngSq4AxWoZY BaboDtqVwhJVV0q2QqWb71 G3BhrOsto8MnIrv8xe24fO Wop0T1xPP6 L9KhCWNnlhuhjERbqWrdJR 7nGUFfepiwZIHrwD3tJWTj U7b0SyEhQlM7CUozK8Jbfk S2JWNutNVo YOIrzHDMgT9uwoqur2vtbm phKlApZJKxEVe8FCr1HVEh vUdjPkPzUOK9VdZ7CGT8yD OsoW8zeJcx wtrsvX5wTzl+LFJ7mDBugY FYAZ8lLjuctZT+PHRkIHN0 oPjvNRheNUKvtD3pSVFsI9 l2VdWjFxB9 KObxC7SivvC4CBTtrISbMI JpkPJHjN8jneidw8ktmaae RsEkDEVuUMk3YJf2YIYkzL duOiBsZWZ0 CpU2LOY0jKAkgY4wmHethd mrgV0eSzu+QmlydGggRGF0 DOy2U6YmPdw8PIEfmHybDZ 0ncGFkZGlu Om9jeEidcPmgEC0sGVUtyo xng152ArKif1kiJXJghVWg KGicOHP2C94xw0J7XFRiND OvWQA4qFH8 kJ4scUsiektitNAguMcvkk ElgMlwDEhrLMovJ626NDFc aRvvWaOaEAl3F4HiAwe6EB VaySyhPC8g iXLuUMbnDv6gzFotuCdmLQ 1cADGmmlgsm708AoBuh4ah XQMlbMJxQEaxNJN0U82ep0 W7AJBaRAGb VRK7bAO0fA4jnYhjsybwoR VmdDsgdmVydGljYWwtYWxp N642ARIzwTojXqUzjFg0H2 MzSwu8COSz aVraTG4igBVoAEcoFx5nyJ eifOloPA2nCPPxbkkro125 VkLfw9yaCAGgtNHkXJzjOT I3N17ef7R0 ZHQhBXTaHIC4mQC1wJ9riZ lnbjogbGVmdDsgdmVydGlj RRgyUKpgZ746UEBoxIrsKz BhdGllbnQg NFkfVXd7U7AaTebxpPP+PC 44SDOwUZ62xNVdyDDrd6ud kFa1TrTrJROwWAV0jSrcIN xvo3QcJGJc C86wkVGcp8N4NBRemYmotI YxCxQyaFA7bL5bDMvvggkj q9cpsoucJutbp7hxyl03jT 48J86hYUee ZHRoPSIzMCUiIHZhbGlnbj 3ztW7nXn6+CEJttUZ3pJL1 mK5iUUNoIzV4XOenC460Ba RvcCIvPjxj i1iig4sygGt5SxM2OXYkxf XknHsdWXT9d4AjCq98R68s IHdpZHRoPSIyMCUiIHZhbG aitn6jqI8x Ii8+HGDfrHQ7oYB3vT5nMv PzFtX8ASxfO119TdGjbEXz GgmgC04eA7LznPA+PHRyPj q2FJArqAto PP7vtFBcKKkqPf5mZTT3Pm TiEkZvMLsxS7HuNSHwxfxd iqsylRV4KULoGEUszY07Vw 9udDogMTBw hTHQuI4silcxc7zlmnroYe IdRJBaVCu4DIb0GOWgoHbp RhNfCCV4FkX0BKH0pYSwqH 1hbGlnbjog mF9dH7OrSYOtkxlaJo82bQ 3nFoWzJaX1QNcjOef+Q09M LDnGZjklLY4RJtUWLNAVBQ wvdGQ+PHRk ETF7nCalIXqvGXQahB9qWS LrZ8u5SiOoCuL3PHnrH4Di LBFxzqcnVs50fO4mNoRwRr H8RUnsM4Ee dwS3TYQflLFaTZcvMNJ7V2 3yo3G7ZIBlOBEoVQC4mTX8 kL6upXwhtggsoVNweFcocd VydGljYWwt NVwxJ547FYZphKogFxH5Pa Y5DkL9NUW7W2KfBgc3QMLr wIxtHJ1vuXGqYPszMc4xmV mugWrzEQ5p EBFzzwnyHHCxvR6aVOLtyV GclOukMD2sRVTlgsaxy071 RhDvOPJ9FMErsAAwM8UkmE 9yOiAjMDAw ULDaE5KeqSVjKNrxB519OQ duYhL8OSSsvjQbR4XpGRYb dDgqPwS1n7B4Dz2uSRXWFQ FyczwvdGQ+ ZQHoALO3lDrgNAyaWVTfqA 9jMULqC8s7MuJjMbK4PMht S1ThPBDplileWm78eX2rZr MzZnS9NNyj C9MzthD3WMYejOYySLtxFU P3U77yj0R6VRIzJXJqIXW7 xBB1aE4lpIcpkpbeiFJuuB sgdmVydGlj LGxtPVcqJ201AAIrfGppKj ZFTUFMRTwvdGQ+PHRkIHN0 yEvvUDgwQZNsiM5gPZUrZ6 o7ZrHrPyT1 BFdyI7BiOIMpprxxCs51yN 9vNeGfGxQ3BXbgL8FlraD3 AUErzUDmSWpyGAO1O87pg7 T7ZQQuAPSj CFU0jDS5cX8osTzcaiqnpC VmdDsgdmVydGljYWwtYWxp H352OMRqeGjtXjHiPPTgYJ 5jeTwvdGQ+ VA49nt48D7SdGvqfSvz9PT IqKPF6oBX9fD4jHGYnJDam o3J9zFD8C5CvibBium0ah0 xsYXBzZTog E31sdDHck2B9OTTvwRO0HW TtiHwyEqXcqF10Mto+PGNv jMccd3UnIdjrv1gny9ohoS m0LpOfSAWc itFmeStpMBK6t0RlXv33Q2 9sIHdpZHRoPSIzMCUiIHZh aGwhtm9rcA5lLw4+PGNvbC K2nSA3xL7x RgPzAgW2RBhgS695MnPgmA DzEfnvb0nmf7tgcDb1TiUd NWCcrlFdjNwjGOV2k4ThTz 30N0AouCbe f1FdMyc0uq04jXJvx8F3tA V4E3QeJHVhqklzfGCjcMli HN9vKIHvjyyrVJNceG0uCO BtL4n5WnKt WfZ0BBooL3NoziD0XKEvlQ KfFBIwrHCBcL4tlhjtj0yf bhkpSlHvDZJiSSd7SWh0SH FsaWduOiBs EJK4AuN2QHV3uXDzbI8quS lsbmashI3aMrk+IMq2t7nh gSFdVT8vjUK0YG83XG08aM Kmz8H9rXS7 I2UzFXItsqfycsppfIK7RH TuUIDkhL69Ig5ucYrmZw3d ZGWmELH1AKFodBMyP4FmdZ 9yOiAjMDAw WSGaZ8FfhCSeAXjmK430ZZ huPtK4JYWyjoYtW5VpKIRq wAfwCzM3s8V4Iw8KRX25VW 79JM99qPFr x4A5nXQ0M1CuYUWbavssar hzqFH1YEJaPRUrnK22Gs4s pNbqCl8gGUEfDKQ5GJExqW VmQ8KeiC5k AfOkBPGdPMXzK1ZbpWHzGZ geK501HPdnImO2MCPktjUs U8NvQCIxaNpzFrY5i3K0Lb 6SDw58MR74 XE71kAXsi0P1eYL9P2LyEJ QyvrugwxzygLQ7IBCmCAXn eE59Da1eeQmlVl7gNFYtEJ J2DCPcgZKn Z6SbzL4wWyPgCLEqLCKpQ6 CgiNOnVOueY310QTduTiE6 VROoukLhL2PpMKZohRfpDf N0d9Z1He9A NGrolnw1G9BmCztqlFU+PC 64KUIxGM23lVFoeJBll8eh xOl1CaDbXAGeHFH0gWfiNS mer7LuQXCs Y29 (more content not included)... [facility] Wound Cultureon 09-17-2024 Wound Culture [...] <=0.5/9.5 Verified Vanc S 1 Verified Normal [facility] Comment on above: Performed By: #### [id number] #### [facility] (DEFAULT) [address] [place] [address] MR FOOT RIGHT WO IV CONTRAST on [...] fracture which may be old in nature [facility] Track the Bet Radiology Study observation (narrative) [facility] Foot - right 3 [facility] Result: Notable large cyst-like region to navicular tuberosity with negative fracture identified [place] Radiology Study observation (narrative) [facility] Coding Summaryon 07-25-2024 Coding Summary HTMLBase 64 EhixugfhFVp3nHh+PGhlYW Q+WP2CNXKaZ78nvTAxwP6j N4FYCFmUUwtxYHFAUMfQZw OitmQqTQ5pfAQvLACv IC8+BX3vVHAhUprbwPEap9 J4uBZ9M04rgw6qLMfveVE7 WAIeYuAwygoiw7nvfPc3ZD cuNmluOyBt TSVemQ49FUX3zG57Lw48hI EktPOro9tgtFr6GyQgKKHd OYY6zNxrCSmxm7EsAMPdU6 6jpKCzp0G9 WDKwcUzkuJHiWgAtcHQ7zJ 1jFHzsbuvwe4otkusaPqe4 kx33pGPgc8R5xJH8Z0Yzrm L8WKAdwGWc OfzfeLDXtK7oevrlb4akxh azUjFqBJOpZGk3MTk0PXRc sUhsGaKxAB17GZQ0BORkzq ZeC4ToETMn dVdwJvW7s9T2Gb2VT9FGHr amP2CTNTSLQFqhiKT+PC90 tq03L7IjUvpoWnu8NJCwXX N5kPD5bW6a CFLfGBsyw3U0zMG0A0Bjiv Qhxh1vk8foQZZmQPxmR59o kUGqs9E0JJKvmXZ0AJYkxD xlKrPqlJ11 Oyc+NBMqkWmbg1BbToaon1 ofm3lqgBq1RhszQZZqwbBl gHsbTEO9m1YoOu6lEFKeqN F1pZJ7eS1u XkBwMxB4DYfjI864QcWrkA FuWiprB40tW5GzrQR+PHRy Bah2XYEniApvOU2gB7ZjPQ RpbmctbGVm uXliAL6rRAYwfrkwCVTmwK 9cNOZsW0i0UwCfYnE1AAjt I0NoIQZsaovtVf44rL8pBa FaIjS2HVfp O5WoacM7JBZqwQReDMnzXQ J8O28lp1I2RRQvDEVmTLX3 oCB1jF1bmXkkwumcgMAtqC sgdmVydGlj TOfkKUxiG279PKNqkLocUx NvZGluZyBEYXRlOiAgMDQv MDcvMjAyNTwvdGQ+PHRkIH A4wYluWPVm fWXaZZcpGo9duEdkiLphTX 2dHHYbopitSOYssJ6bEJBp pNOjvGapGP5pPBAfgdtyk6 56BqAfTZD8 FRAbaKRsY3SgsX0fAmXcUS SqFAEvD8PzhWBeBAixK996 QWbkQyC5AGAfbtRvJ4EbCZ FsaWduOiB0 e0W7Jo3Xm1NejprsL8KvsJ WxIxLsVecaOYd8D5OgSsmg dHI+FL91DKIsYQ87ZKm1ZU C4mXitPYua RKDkR3GzvY4aQvDlFJSuVV RkOyc+PHRhYmxlIHdpZHRo KSeeOJAfToLtvHdbDE2xXv 9yZGVyLWNv wXhblYJdXuTzw4ahQBFoDI bqGQ6hiBptI7DvsAN2XHAe i8r4Qo13N69jO1IlhRX+PG ZieLO1eAC2 yZ5iMqEgYrX9DWcmR077Ig ZpqOFkWyurk6ijf6jdmZw1 WsV1JZKvnfTzlUseGZX9j3 RtYf80F50l IHdpZHRoPSIxNSUiIHZhbG uspy4npP0nHs6+PGNvbCB3 aZH4cE3yEuHrXqZ5IRsbO0 49InRvcCIv Knxrd2hdk6mffUh2FgCbUK QsogPmoUexRZY2i4BtIw43 E2EqyRyih9EhSjo6fg45aG Ack1N1jWU7 X0ShQBAinbgvuDCufRczZV 5bFZCmqqaeZHGalO0tKDMy T8m6GcJvXxM8ETrbB3Bebr B6OUPnpORr WHIujOZGgL9vkuawx2vxzz dePgVhLSPnLIo1NIn1MPUq rWneNwZhOBY3CaY4UVI7dL OsrJ0odXdy ygmhnH5oKrv+XCX0xICefM TRCQ9xEstzrPW+PHRkIHN0 gHehYRyrXHZqvH4zYDQcV6 i4EbHsGkY1 OBjzC7HacfG2YMXalEAeNP VseZQLcF9wmicpb6olwsqf NkWrAGLbWTz1DEf7GNWvkL duOiBsZWZ0 WhF2PQL7pNSyiF2phPsyzv okxH8cCkg+QmlydGggRGF0 IMu5J8EiTvq4ZDCcdDjdQD 0ncGFkZGlu Dh7fqSqebIleLM3kDPGydh nem561LuRzz7pgOROyfAGk CZfwGPR0G39ts2V5QGZyLG FoGIT8dUC6 gZ2toJyzlbqtoBLzrGssvk TvqLyoGYegOFlqL940NNMr qMabRhSxZWb7N5HfIed6HW HmtVggJH2o cGMbSCqcUx7zmYfscQryCD 4mNMYobdsqp836SdFpj9mk KVSqwLQkHLepPGU7N42fs0 K8BRJpBQOo CNV0mHC8nF7ynFbjpuisbX VmdDsgdmVydGljYWwtYWxp S788MEXzzGmuWiHovUi3W5 CfYtc0QTQa dHgjGQ4ycGMtMEruEh7kpV ilsCiuPU4cZOYssjdli061 OcHaq8wvDVOmzKLgAIokLQ O7I29nj5Q2 IFTkNPSqWMN4fQJ2zO9wsR lnbjogbGVmdDsgdmVydGlj NWpgNLnuE828XMCkrTjoDw BhdGllbnQg LBduGRd8S8ZaYlsatHL+PC 85EFYhYR33pFXnqNRwn2ik lIn1GyZzOUXoZBV2bFjbAN ysh6EaOMDl E25nmDFfb4A7FBRjfLbulR YrKdPpbKW0sZ4nLGuluemc h3otsylqOsxng7fspj16hS 61L45gRLsl ZHRoPSIzMCUiIHZhbGlnbj 6kmA8nWz1+QYRuoMT4xEY5 yX1gDMPhGeG2IFcuE359Wc RvcCIvPjxj n2rbg1ynhYh4ZmQ3DCIbpx HriMugJIJ7g8WdEl13K84i IHdpZHRoPSIyMCUiIHZhbG vril5qzV6k Ii8+JHNyhDB1nHO1jO3yCa QyZyU3EZewF594EcBmiHCo KoqeR33zU3YnjVG+PHRyPj p3WDQdlQot PD3drSSeMVpvKv9iBTE6Jr FhViRxZXxeC8YzMDFvcoyx xuuxsVS3RRNmPDCpmV31Lr 9udDogMTBw gJBFfJ2eqncdd6bhmwfbIx ZtZVDrERp0TBo3VXIojSbg AvJlDBN2DsK2BDM6mPQtfE 1hbGlnbjog pI5jM7UiDYNlreilKy51bB 1rAgTyOiP6WVmkEag+Q09M PAvQCapaBF2XZnDVRBKSFQ wvdGQ+PHRk TDV3yRgsTUfdHJRgnE9kBN WsB1v9EkRqPsQ3SHhwC2Oh AHTpatpqVn46aJ3rTfTuAa R2TKigE0Dk frP7SVAzvZGdVZwrULF5G7 5pm3G4UKKkXXJqRPG7eWT9 hH4lqZwuxmkozIDwpDueys VydGljYWwt MCuaW404HUTeaDcvOfG6Pq M4ScA5PCG5U1FlElx9KWKf dPuxVC0ynIBoFMhzFo0aeZ igpVmlKZ1j EFXrrnkoTPKxjZ9zEMAtaT IeqDinHF8oHVZwlgwpd587 TfQgWRE9XBWkuODjX8HhrI 9yOiAjMDAw WVRaY8JfcOEgANuoB951LR cvCbG6IFXteeZzT6QtAJLx fKyuZwZ6z6R3Rf0sZSQNTY FyczwvdGQ+ NFPlIWD0zMpdPLtqAWCroV 0bTLNdX0p3GbOsPyT6ACqr Z7AwPMHjjhrgQz21cT4gJi AyXmT5KYrf B6DnkeT3HNBhnKBbISfvAA M8C44hq9L4OXAdVAXwQYJ8 gFA6uM2qyVqhxfjtgTOdrW sgdmVydGlj XBzqAQquU457NTNdtZqbNy ZFTUFMRTwvdGQ+PHRkIHN0 xVhxMEfyNWFtgI4sXLSlO0 y1CmIuJiL9 JEvyJ4QpOMBxvaxzQl73eT 2kCnBiQjX3YRoaG7ArgcP5 JXTadMBqAZyvVRG1W98tm3 Q9ETVfZYNe HOB4jUL6wV5nzQsfvqssbF VmdDsgdmVydGljYWwtYWxp I003WGVicGqxFaXvEQVnMH 5jeTwvdGQ+ ZU94ed03C0LdIsqwWhe9GK ZdDZF7sPS7vF6dPCZtIJsg e5M5dUC2B6MqaxXnae7xi7 xsYXBzZTog O51keFUbm3L9GRFchGS2EA JmuHvcJjTlmH98Jpk+PGNv dEorn4NbVmroh9syp9bxxW i3YbUwAGHp arLtqBuoTCS3c1DeXp79Y7 9sIHdpZHRoPSIzMCUiIHZh iAvzkj9waS7oCb7+PGNvbC N8mSC1mQ0l WqLjTcF6ZPhgM889LbVmnR AzWousk5sdg3ejsWd7YgQr VTBlngMofKbzRVS1w5ZsYw 88Y9YidRcd a7XyRnl1uj89nZQdk5Q6lE Y0I0DwWWBiitthaLQrlKge UP5xDEQidqggXOOojP9xOB QfM4p9MtOk IzQ7XFvzN9KrvuD7GYHtvO SiQPWfeYODtA3rcuxkh2kc feqmTiUgAMMoUFu1XGu2AZ FsaWduOiBs DJC3EhV5XEE3pQPtaH5ltG hyxdgvvY9bPat+KHe5y0bi uERbBR1bhTV3JY61HA18lY Oiy2G3oXD0 Z6AaULVruhwpilmtjAK0MD ImJJIrsY12Mg2nsLywZz1o IRHgOCE1MQEfrIYvW1SwzM 9yOiAjMDAw JDMcS1KdnIHnIOhkR137KM lvHjL0UNXrcsSyD2OyRWSl rZzdRkS3s1V2Wb3WGX22WT 77BH19rLRq y9H6jQH3G7TbRPXpmbpkvd vsiDZ8QTJpUTCrkR05El6m uArfMl4fDDMdLDZ2BPHicF EvQ0RqbE8v RwVyJNUgWXOmV0ObrXQeQE kgC232FVujOnN5RFHdtzYq X9YrJXLcwLwhWfC4x9C3Ii 4JUv26GM03 XL71eENqu0D9wVY2C1XdLM AzdpjfkfigpGS1LDApOXMe mP22Hx4pmRexAe3jIFPsXC Q2KXRmjXIe I0DjfC0rLkBzVKLoKUYsU6 BhfXOfREvsB837GBooOuD1 VSEymrKzA0HcHOQfcQydBw A1g3J6Ak7H POfeytt1F3DxRcgxnMY+PC 73XSHtVO29fSSzsSBde4df rTj2NtQbNDBgFDG6aCltSF ljb4TmTTWa Y29 (more content not included)... [facility] ED Note-Nursingon 07-17-2024 ED Note-Nursing [...] A&O x4. Patient to ER room 7. [facility] XR Foot Complete Righton XR Foot Complete Right EXAM: XR Foot Complete Right HISTORY: foot pain COMPARISON: Right foot radiographs 06/05/2017 at [place] TECHNIQUE: 3 views of the right foot FINDINGS: No acute fracture or soft tissue swelling. 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 Joint spaces in the mid foot are maintained. No radiopaque foreign body. IMPRESSION: No acute osseous abnormality. Final Dictated by: Gilmer Castro MD Dictated DT/TM: 07/17/24 9:26 Signed (Electronic Signature): Gilmer Castro MD 07/17/24 3:27 pm Technologist: MARIANA [facility] BUN, POCon 12-17-2023 Urea nitrogen [Mass/Vol] 21 mg/dL Normal 8-26 [facility] CALCIUM, IONIC (POC)on 12-16 Calcium.ionized (Bld) [Moles/Vol] 1.24 mmol/L 1.15 - 1.33 mmol/L [facility] Calcium, Ionic (POC)on 12-16 Calcium [Moles/Vol] 1.24 mmol/L Normal 1.15-1.33 [facility] Creatinine W/GFR Point of Ca reon 12-17-2023 Creatinine [Mass/Vol] 0.6 mg/dL 0.51 - 1.19 mg/dL [facility] eGFR, POC - PINF [facility] Comment on above: These results are [...] 11-19 Creatinine [Mass/Vol] 0.6 mg/dL Normal 0.51-1.19 [facility] GFR/1.73 sq M.predicted among non-blacks MDRD (S/P/Bld) [Vol rate/Area] mL/min/{1.73_m2} Normal >60 [facility] Comment on above: Result Comment: These results [...] 12 mmol/L 7 - 16 mmol/L [facility] Chloride [Moles/Vol] 104 mmol/L 98 - 10 7 mmol/L [facility] CO2 Calc (Bld) [Moles/Vol] 27 mmol/L 22 - 30 mmol/L [facility] Potassium [Moles/Vol] 4.4 mmol/L 3.5 - 4.5 mmol/L [facility] Sodium [Moles/Vol] 142 mmol/L 138 - 146 mmol/L [facility] Electrolyteson 12-17-2023 Anion gap [Moles/Vol] 12 mmol/L Normal 7-16 [facility] Chloride [Moles/Vol] 104 mmol/L Normal 98-107 [facility] CO2 [Moles/Vol] 27 mmol/L Normal 22-30 [facility] Potassium [Moles/Vol] 4.4 mmol/L Normal 3.5-4.5 [facility] Sodium [Moles/Vol] 142 mmol/L Normal 138-146 [facility] Glucose (POC)on 12-17-2023 Glucose [Mass/Vol] 107 mg/dL High 74-100 [facility] Hemoglobin and hematocrit, b loodon 12-17-2023 Hematocrit (Bld) [Volume fraction] 41 % 36 - 46 % [facility] Hemoglobin (Bld) [Mass/Vol] 13.8 g/dL 12.0 - 16.0 g/dL [facility] Hgb/Hct, POCon 12-17-2023 Hematocrit (Bld) [Volume fraction] 41 % Normal 36-46 [facility] Hemoglobin (Bld) [Mass/Vol] 13.8 g/dL Normal 12.0-16.0 [facility] Lipid Panelon 12-17-2023 Cholesterol [Mass/Vol] 154 mg/dL 0 - 199 mg/dL [facility] Comment on above: Cholesterol Guidelines: <200 Desirable 200-240 Borderline >240 Undesirable Cholesterol in HDL [Mass/Vol] 63 mg/dL 40 - PINF mg/dL [facility] Comment on above: HDL Guidelines: <40 Undesirable 40-59 Borderline >59 Desirable Cholesterol in LDL [Mass/Vol] 77 mg/dL 0 - 100 mg/dL [facility] Comment on above: LDL Guidelines: <100 Desirable 100-129 Near to/above Desirable 130-159 Borderline >159 Undesirable Direct (measured) LDL and calculated LDL are not interchangeable tests. Cholesterol in VLDL [Mass/Vol] 14 mg/dL [facility] Cholesterol.total/Ch olesterol in HDL [Mass ratio] 2.0 {ratio} [facility] Triglyceride [Mass/Vol] 68 mg/dL NINF - 150 mg/dL [facility] [employer] Comment on above: Triglyceride Guidelines: <150 Desirable 150-199 Borderline 200-499 High >499 Very high Based on AHA Guidelines for fasting triglyceride, January 2012. Lipid Profileon 12-17-2023 Cholesterol [Mass/Vol] 154 mg/dL Normal 0-199 [facility] Comment on above: Result Comment: Cholesterol Guidelines: <200 Desirable 200-240 Borderline >240 Undesirable Performed By: #### L IPR, ANAM #### [facility] [employer] [address] [place] [phone] [employer] Developer: Hemant June MD Cholesterol in HDL [Mass/Vol] 63 mg/dL Normal >40 [facility] Comment on above: Result Comment: HDL Guidelines: <40 Undesirable 40-59 Borderline >59 Desirable Performed By: #### L IPR, ANAM #### [facility] [employer] [address] [place] [address] [employer] Developer: Hemant June MD Cholesterol in LDL [Mass/Vol] 77 mg/dL Normal 0-100 [facility] Comment on above: Result Comment: LDL Guidelines: <100 Desirable 100-129 Near to/above Desirable 130-159 Borderline >159 Undesirable Direct (measured) LDL and calculated LDL are not interchangeable tests. Performed By: #### L IPR, ANAM #### [facility] [employer] [address] [place] [address] [employer]: Hemant June MD Cholesterol in VLDL [Mass/Vol] 14 mg/dL Normal [facility] Comment on above: Performed By: #### L IPR, ANAM #### [facility] [employer] [address] [place] [address] [employer] Developer: Hemant June MD Cholesterol.total/Ch olesterol in HDL [Mass ratio] 2.0 {ratio} Normal [facility] Comment on above: Performed By: #### L IPR, ANAM #### [facility] [address] [place] [address] [employer] Developer: Hemant June MD Triglyceride [Mass/Vol] 68 mg/dL Normal <150 [facility] Comment on above: Result Comment: Triglyceride Guidelines: <150 Desirable 150-199 Borderline 200-499 High >499 Very high Based on AHA Guidelines for fasting triglyceride, January 2012. Performed By: #### L IPR, ANAM #### [facility] [employer] [address] [place] [address] [employer]: Hemant June MD No Panel Informationon 12-16 [facility] POCT Glucoseon 12-17-2023 Glucose [Mass/Vol] 107 mg/dL High 74 - 100 mg/dL [facility] Interpretation and review of laboratory results Abnormal [facility] POCT urea (BUN)on 12-17-2023 Urea nitrogen [Mass/Vol] 21 mg/dL 8 - 26 mg/dL [facility] Phosphoruson 12-17-2023 Phosphate [Mass/Vol] 4.1 mg/dL 2.5 - 4 .5 mg/dL [facility] Phosphorus, Inorg.on 024 Phosphorus, Inorg. 4.1 mg/dL Normal 2.5-4.5 [facility] Comment on above: Performed By: #### L IPR, ANAM #### [facility] [employer] [address] [phone] [employer] Developer: Hemant June MD CBC with Auto Differentialon 11-21-2023 Basophils (Bld) [#/Vol] 0.03 10*3/uL [facility] Basophils/100 WBC (Bld) 0 % 0 - 2 % [facility] Eosinophils (Bld) [#/Vol] 0.11 10*3/uL [facility] Eosinophils/100 WBC (Bld) 2 % 1 - 4 % [facility] Erythrocyte distribution width (RBC) [Ratio] 11.9 % 11.8 - 14.4 % [facility] Hematocrit (Bld) [Volume fraction] 43.1 % 36.3 - 47.1 % [facility] Hemoglobin (Bld) [Mass/Vol] 13.9 g/dL 11.9 - 15.1 g/dL [facility] Immature granulocytes (Bld) [#/Vol] [facility] Immature granulocytes/100 WBC (Bld) 0 % 0 [facility] Interpretation and review of laboratory results Abnormal [facility] Lymphocytes/100 WBC (Bld) 26 % 24 - 43 % [facility] Lymphocytes/100 WBC (Bld) 1.88 % [facility] MCH (RBC) [Entitic mass] 30.4 pg 25.2 - 33.5 pg [facility] MCHC (RBC) [Mass/Vol] 32.3 g/dL 28.4 - 34.8 g/dL [facility] MCV (RBC) [Entitic vol] 94.3 fL 82.6 - 102.9 fL [facility] Monocytes/100 WBC (Bld) 6 % 3 - 12 % [facility] Monocytes/100 WBC (Bld) 0.43 % [facility] Neutrophils/100 WBC (Bld) 66 % High 36 - 65 % [facility] Nucleated RBC/100 WBC (Bld) [Ratio] 0.0 % 0.0 per 100 WBC [facility] Platelet mean volume (Bld) [Entitic vol] 10.6 fL 8.1 - 13.5 fL [facility] Platelets (Bld) [#/Vol] 210 10*3/uL [facility] RBC (Bld) [#/Vol] 4.57 10*6/uL 3.95 - 5.1 1 m/uL [facility] Segmented neutrophils/100 WBC (Bld) 4.75 % [facility] WBC other (Bld) [#/Vol] 7.2 [facility] CBC with Diffon 11-21-2023 Abs. Basophil 0.03 k/uL Normal 0.00-0.20 [facility] Comment on above: Performed By: #### C DP, HCG, CP #### [employer] [address] [place] [address] [phone] [employer]: Hemant June MD Abs.Imm.Granulocyte <0.03 Normal 0.00-0.30 [facility] Comment on above: Performed By: #### C DP, HCG, CP #### [employer] [address] [place], [place] [phone] [employer]: Hemant June MD Abs.Neutrophil (Seg) 4.75 k/uL Normal 1.50-8.10 [facility] Comment on above: Performed By: #### C DP, HCG, CP #### [place] [address] [employer]: Hemant June MD Basophils/100 WBC (Bld) 0 % Normal 0-2 [facility] Comment on above: Performed By: #### C DP, HCG, CP #### [place] [address] [employer]: Hemant June MD Eosinophils (Bld) [#/Vol] 0.11 10*3/uL Normal 0.00-0.44 [facility] Comment on above: Performed By: #### C DP, HCG, CP #### [place] [address] [employer]: Hemant June MD Eosinophils/100 WBC (Bld) 2 % Normal 1-4 [facility] Comment on above: Performed By: #### C DP, HCG, CP #### [place] [address] [employer] Developer: Hemant June MD Erythrocyte distribution width (RBC) [Ratio] 11.9 % Normal 11.8-14.4 [facility] Comment on above: Performed By: #### C DP, HCG, CP #### [place] [address] [employer]: Hemant June MD Hematocrit (Bld) [Volume fraction] 43.1 % Normal 36.3-47.1 [facility] Comment on above: Performed By: #### C DP, HCG, CP #### [place] [address] [employer]: Hemant June MD Hemoglobin (Bld) [Mass/Vol] 13.9 g/dL Normal 11.9-15.1 [facility] Comment on above: Performed By: #### C DP, HCG, CP #### [address] [address] [employer] Developer: Hemant June MD Immature granulocytes/100 WBC (Bld) 0 % Normal 0 [facility] Comment on above: Performed By: #### C DP, HCG, CP #### [place] [address] [employer]: Hemant June MD Lymphocytes (Bld) [#/Vol] 1.88 10*3/uL Normal 1.10-3.70 [facility] Comment on above: Performed By: #### C DP, HCG, CP #### [place] [address] [employer]: Hemant June MD Lymphocytes/100 WBC (Bld) 26 % Normal 24-43 [facility] Comment on above: Performed By: #### C DP, HCG, CP #### [place] [address] [employer]: Hemant June MD MCH (RBC) [Entitic mass] 30.4 pg Normal 25.2-33.5 [facility] Comment on above: Performed By: #### C DP, HCG, CP #### [place] [address] [employer]: Hemant June MD MCHC (RBC) [Mass/Vol] 32.3 g/dL Normal 28.4-34.8 [facility] Comment on above: Performed By: #### C DP, HCG, CP #### [address] [address] [employer] Developer: Hemant June MD MCV (RBC) [Entitic vol] 94.3 fL Normal 82.6-102.9 [facility] Comment on above: Performed By: #### C DP, HCG, CP #### [address] [address] [employer] Developer: Hemant June MD Monocytes (Bld) [#/Vol] 0.43 10*3/uL Normal 0.10-1.20 [facility] Comment on above: Performed By: #### C DP, HCG, CP #### [address] [address] [employer]: Hemant June MD Monocytes/100 WBC (Bld) 6 % Normal 3-12 [facility] Comment on above: Performed By: #### C DP, HCG, CP #### [address] [address] [employer]: Hemant June MD Neutrophil (Seg) 66 % High 36-65 [facility] Comment on above: Performed By: #### C DP, HCG, CP #### [address] [address] [employer]: Hemant June MD NRBC Automated 0.0 per 100 WBC Normal 0.0 [facility] Comment on above: Performed By: #### C DP, HCG, CP #### [address] [address] [employer] Developer: Hemant June MD Platelet mean volume (Bld) [Entitic vol] 10.6 fL Normal 8.1-13.5 [facility] Comment on above: Performed By: #### C DP, HCG, CP #### [address] [address] [employer]: Hemant June MD Platelets (Bld) [#/Vol] 210 10*3/uL Normal 138-453 [facility] Comment on above: Performed By: #### C DP, HCG, CP #### [address] [phone] [employer]: Hemant June MD RBC (Bld) [#/Vol] 4.57 10*6/uL Normal 3.95-5.11 [facility] Comment on above: Performed By: #### C DP, HCG, CP #### [facility] [address] [place], [place] [phone] [employer] Developer: Hemant June MD WBC (Bld) [#/Vol] 7.2 10*3/uL Normal 3.5-11.3 [facility] Comment on above: Performed By: #### C DP, HCG, CP #### [facility] [address] [place], [place] [phone] [employer] Developer: Hemant June MD CT ABDOMEN PELVIS W [...] Abdulkadir Tsang MD 11/21/23 Final result Normal [facility] CT Abdomen and Pelvis W cont rast Tejinder 11-21-2023 1. No acute process. 2. Evidence of left inguinal hernia repair. Small fat containing umbilical hernia. 3. Complex cystic lesion of the left adnexa measuring 2.9 cm. Recommend pelvic ultrasound. 4. Faint omental edema and nodularity. While this could be infectious/inflammator y in etiology, early changes of peritoneal carcinomatosis is in the differential. 5. Mild splenomegaly. [facility]PN RIS CONSOLIDATED EXAMINATION: CT OF THE ABDOMEN [...] hernia repair. Small fat containing umbilical hernia. PN RIS CONSOLIDATED Abdulkadir Tsang MD - 11/21/2023 EXAMINATION: [...] in the differential. 5. Mild splenomegaly. [facility] Radiology Study observation (narrative) [facility] CT Abdomen and Pelvis W cont rast IVOrdered By: Abdulkadir Tsang on 11-21-2023 [facility] Work Phone: Comp Metabolic Profon 2023 Albumin [Mass/Vol] 4.6 g/dL Normal 3.5-5.2 [facility] Comment on above: Performed By: #### C DP, HCG, CP #### [address] [address] [employer] Developer: Hemant June MD Albumin/Glob Ratio 2.0 Normal 1.0-2.5 [facility] Comment on above: Performed By: #### C DP, HCG, CP #### [address] [address] [employer] Developer: Hemant June MD Alkaline Phos 66 U/L Normal 35-104 [facility] Comment on above: Performed By: #### C DP, HCG, CP #### [address] [address] [employer]: Hemant June MD ALT [Catalytic activity/Vol] 12 U/L Normal 10-35 [facility] Comment on above: Performed By: #### C DP, HCG, CP #### [address] [address] [employer] Developer: Hemnat June MD Anion gap [Moles/Vol] 11 mmol/L Normal 9-16 [facility] Comment on above: Performed By: #### C DP, HCG, CP #### [address] [address] [employer] Developer: Hemant June MD AST [Catalytic activity/Vol] 22 U/L Normal 10-35 [facility] Comment on above: Performed By: #### C DP, HCG, CP #### [address] [address] [employer] Developer: Hemant June MD Bilirubin [Mass/Vol] 0.3 mg/dL Normal 0.00-1.20 [facility] Comment on above: Performed By: #### C DP, HCG, CP #### [address] [place] [address] [employer]: Hemant June MD Calcium [Mass/Vol] 8.9 mg/dL Normal 8.6-10.4 [facility] Comment on above: Performed By: #### C DP, HCG, CP #### [facility] [employer] [address] [place] [address] [employer] Developer: Hemant June MD Chloride [Moles/Vol] 105 mmol/L Normal 98-107 [facility] Comment on above: Performed By: #### C DP, HCG, CP #### [facility] [employer] [address] [place] [address] [employer] Developer: Hemant June MD CO2 [Moles/Vol] 23 mmol/L Normal 20-31 [facility] Comment on above: Performed By: #### C DP, HCG, CP #### [facility] [facility] [address] [place] [address] [employer] Developer: Hemant June MD Creatinine [Mass/Vol] 0.7 mg/dL Normal 0.50-0.90 [facility] Comment on above: Performed By: #### C DP, HCG, CP #### [facility] [employer] [address] [place] [address] [employer]: Hemant June MD GFR/1.73 sq M.predicted among non-blacks MDRD (S/P/Bld) [Vol rate/Area] mL/min/{1.73_m2} Normal >60 [facility] Comment on above: Result Comment: These results [...] By: #### C DP, HCG, CP #### [facility] [place] [address] [employer] Developer: Hemant June MD Glucose [Mass/Vol] 76 mg/dL Normal 74-99 [facility] Comment on above: Performed By: #### C DP, HCG, CP #### [facility] [place] [address] [employer] Developer: Hemant June MD Potassium [Moles/Vol] 3.7 mmol/L Normal 3.7-5.3 [facility] Comment on above: Result Comment: SPEC IMEN SLIGHTLY HEMOLYZED, RESULTS MAY BE ADVERSELY AFFECTED. Performed By: #### C DP, HCG, CP #### [facility] [address] [place] [address] [employer] Developer: Hemant June MD Protein [Mass/Vol] 7.5 g/dL Normal 6.6-8.7 [facility] Comment on above: Performed By: #### C DP, HCG, CP #### [facility] [address] [place] [address] [employer] Developer: Hemant June MD Sodium [Moles/Vol] 139 mmol/L Normal 136-145 [facility] Comment on above: Performed By: #### C DP, HCG, CP #### [facility] [address] [place] [address] [employer] Developer: Hemant June MD Urea nitrogen [Mass/Vol] 15 mg/dL Normal 6-20 [facility] Comment on above: Performed By: #### C DP, HCG, CP #### [facility] [address] [place] [address] [employer] Developer: Hemant June MD Comprehensive Metabolic Pane [facility] 11-21-2023 Albumin [Mass/Vol] 4.6 g/dL 3.5 - 5.2 g/dL [facility] Albumin/Globulin [Mass ratio] 2.0 {ratio} 1.0 - 2.5 [facility] ALP [Catalytic activity/Vol] 66 U/L 35 - 104 U/L [facility] ALT [Catalytic activity/Vol] 12 U/L 10 - 35 U/L [facility] Anion gap [Moles/Vol] 11 mmol/L 9 - 16 mmol/L [facility] AST [Catalytic activity/Vol] 22 U/L 10 - 35 U/L [facility] Bilirubin [Mass/Vol] 0.3 mg/dL 0.00 - 1.20 mg/dL [facility] Calcium [Mass/Vol] 8.9 mg/dL 8.6 - 10. 4 mg/dL [facility] Chloride [Moles/Vol] 105 mmol/L 98 - 10 7 mmol/L [facility] CO2 [Moles/Vol] 23 mmol/L 20 - 31 mmol/L [facility] Creatinine [Mass/Vol] 0.7 mg/dL 0.50 - 0.90 mg/dL [facility] Est, Glokulwant Filt Rate - PINF [facility] Comment on above: These results are not [...] 76 mg/dL 74 - 99 mg/dL [facility] Potassium [Moles/Vol] 3.7 mmol/L 3.7 - 5.3 mmol/L [facility] Comment on above: SPECIMEN SLIGHTLY HE MOLYZED, RESULTS MAY BE ADVERSELY AFFECTED. Protein [Mass/Vol] 7.5 g/dL 6.6 - 8.7 g/dL [facility] Sodium [Moles/Vol] 139 mmol/L 136 - 145 mmol/L [facility] Urea nitrogen [Mass/Vol] 15 mg/dL 6 - 20 mg/dL [facility] HCG Qualitative, Serumon HCG ( test) Ql Negative NEGATIVE [facility] [employer] Comment on above: Specimens with hCG l evels near the threshold of the test (25 mIU/mL) may give a negative or indeterminate result. In such cases, another test should be performed with a new specimen in 48-72 hours. If early is suspected clinically in this setting, correlation with quantitative serum b-hCG level is suggested. [employer] has confirmed the use of plasma for this test. This has not been cleared or approved by the U.S. Food and Drug Administration. The FDA has determined that such clearance is not necessary. [facility] [email or web address] HCG Screen, Bloodon 11-21-19 24 HCG Screen, Blood Negative Normal [facility] Comment on above: Result Comment: Spec imens with hCG levels near the threshold of the test (25 mIU/mL) may give a negative or indeterminate result. In such cases, another test should be performed with a new specimen in 48-72 hours. If early is suspected clinically in this setting, correlation with quantitative serum b-hCG level is suggested. [employer] has confirmed the use of plasma for this test. This has not been cleared or approved by the U.S. Food and Drug Administration. The FDA has determined that such clearance is not necessary. Performed By: #### C DP, HCG, CP #### [employer] [address] [place], [place] [phone] [employer]: Hemant uJne MD Ambulatory Visit Summaryon 1 04-22-2022 Ambulatory [...] you for choosing us for your care. Kenn Noriega [facility] General Surgery Office/Clini c Noteon 02-20-2023 General [...] E&M of Est. Patient Low 20-29 Min 19244 2. Left groin pain, (R10.32: Left lower [...] E&M of Est. Patient Low 20-29 Min 33051 Follow-up No qualifying data available Problem List/Past [...] Diabetes mellitus t (more content not included)... [facility] Comment on above: Result Comment: Elec tronically Signed By: MYA TEMPLE, Miguelina Swanson\.br\Date and Time Signed: 02/20/23 14:32 EDT Ambulatory Visit Summaryon 1 Ambulatory Visit Summary PARIKHTIARA Kiki :1985 Visit Date:01/28/2023 Ambulatory Visit Instructions Your [...] ROQUE MD Where: General Surgery Mya/Chris Gray [facility] General Surgery Office/Clini c Noteon 01-28-2023 General [...] Recorded pt has had 2 shots Normal Noriega [facility] Comment on above: Result Comment: [...] Miguelina ROQUE MD Where: General Surgery Nill/[place] Noriega [facility] General Surgery Office/Clini c Noteon 01-14-2023 General [...] Recorded pt has had 2 shots Normal [facility] Comment on above: Result Comment: Elec tronically Signed By: MYA TEMPLE, Miguelina Solis\Date and Time Signed: 01/14/23 17:16 EDT Pathology Noteon 01-14-2023 Pathology Note [id number]#1.0 0CD:127 [facility] Operative Reporton Operative Report [id number]#1.00 CD:127 [facility] Lab Reportson 01-12-2023 Lab Reports [id number]#1.00 CD:127 [facility] Lab Reports [id number]#1.00 CD:127 [facility]son 01-09-2023 Lab Reports [id number]#1.0 0CD:127 [facility] Lab Reports [id number]#1.0 0CD:127 [facility] 01-07-2023 Lab Reports [id number]#1.0 0CD:127 [facility] 12-26-2022 Lab Reports [id number]#1.0 0CD:127 Normal [facility] Lab Reportson 12-25-2022 Lab Reports [id number]#1.0 0CD:127 Normal [facility] RAD - MISCon 12-25-2022 RAD - MISC [id number]#1.00 CD:127 Normal [facility] Consent for Procedure/Surger yon 12-24-2022 Consent for Procedure/Surgery [id number]#1.0 0CD:127 Normal [facility] Insurance Correspondenceon 0 12-24-2022 Insurance Correspondence [id number]#1.0 0CD:127 Normal [facility] General Surgery Office/Clini c Noteon 12-23-2022 General [...] use inte (more content not included)... Normal [facility] Comment on above: Result Comment: Elec tronically Signed By: Miguelina ROQUE MD\.br\Date and Time Signed: 12/23/22 17:03 EDT Ambulatory Visit Summaryon 0 12-16-2022 Ambulatory Visit Summary TIARA PARIKH :1985 Visit Date:12/16/2022 Ambulatory Visit Instructions Your [...] Follow-Up Appointments Thursday 2:00 PM EDT With: MYA TEMPLE, Miguelina Swanson Where: General Surgery Mya/Chris Hawk [facility] General Surgery Office/Clini c Noteon 12-16-2022 General [...] Recorded pt has had 2 shots Normal [facility] Comment on above: Result Comment: Elec tronically Signed By: MYA TEMPLE, Miguelina Swanson\.br\Date and Time Signed: 12/16/22 16:32 EDT Ambulatory Visit Summaryon 0 12-11-2022 Ambulatory Visit Summary TIARA PARIKH Kiki :1985 Visit Date:12/11/2022 Ambulatory Visit Instructions Your Diagnosis Abscess of right breast unrelated to or Your Care Team Attending Physician - MYA TEMPLE, Miguelina Swanson Primary Care Physician - Sherin oHuse MD This Is Your Medications List Contact [...] Follow-Up Appointments Thursday 4:00 PM EDT With: MYA TEMPLE, Miguelina Swanson Where: General Surgery Nill/Said [place] Normal [facility] Lab Reportson 11-17-2022 Lab Reports [id number]#1.0 0CD:127 Normal [facility] General Surgery Office/Clini c Noteon 11-16-2022 General Surgery Office/Clinic Note Chief Complaint breast mass HPI Staff 36 year old female presents on consultation from [facility] [place] [facility] for painful right breast mass. Patient [...] Suboxone, chronic hepatitis C, eczema, referred from [facility] ED for right breast pain, cellulitis, [...] gabapentin 8 (more content not included)... Normal [facility] Comment on above: Result Comment: Elec tronically Signed By: MYA TEMPLE, Miguelina Swnason\.br\Date and Time Signed: 11/16/22 21:32 EDT Ambulatory [...] pain Frequency of urination Urinary frequency Normal [facility] General Surgery Office/Clini c Noteon 11-14-2022 General [...] Recorded pt has had 2 shots Normal [facility] Comment on above: Result Comment: Elec tronically Signed By: MYA TEMPLE, Miguelina Solis\Date and Time Signed: 11/14/22 14:56 EDT Lab Reportson 11-14-2022 Lab Reports [id number]#1.0 0CD:127 [facility] Lab Reports [id number]#1.0 0CD:127 [facility] Ambulatory Visit Summaryon 0 11-11-2022 Ambulatory Visit [...] Follow-Up Appointments Thursday 2:40 PM EDT With: MYA TEMPLE, Miguelina Swanson Where: General Surgery Mya/Chris Gray [facility] ED Note-Physicianon 11-12-19 ED Note-Physician [id number] 0CD:127 [facility] RAD - Ultrasound Reporton RAD - Ultrasound Report [id number] 0CD:127 [facility] Physician Referralon 023 Physician Referral [id number]#1.0 0CD:127 [facility] Formson 08-07-2022 Forms [id number]#1.0 0CD:127 [facility] Ambulatory Visit Summaryon 0 08-06-2022 Ambulatory Visit Summary TIARA PARIKH :1985 Visit Date:08/06/2022 Ambulatory Visit Instructions Your Care Team Attending Physician - MYA TEMPLE, Miguelina Swanson Primary Care Physician - Harsh TEMPLE, Sherin Referring Physician - Sherin House MD This [...] pain Frequency of urination Urinary frequency Normal [facility] Provider Letteron 07-18-2022 Provider Letter July 18, 2022 TIARA PARIKH [address] [place] [address] [place] [address] TIARA PARIKH 1985 Dear Tiara , We have been trying to reach you with no success. It is important that you return our call regarding your referral from Dr. House upon receiving this letter. Also, at the time of your call, please provide us with your current information. Thank you for your prompt attention to this matter. Sincerely, General Surgery Dr. Mya Gray/[place] [phone] Normal [facility] RAD - CT Reporton 07-17-2022 RAD - CT Report [id number]#1.0 0CD:127 Normal [facility] Physician Referralon 023 Physician Referral [id number]#1.0 0CD:127 Normal [facility] CT ABD/PELV W CONon 07-10-[address] [...] by: MALCOM DUMONT Date: 2022-07-09 11:03 Normal [facility] US PELVIS AND TRANSVAGon US PELVIS AND [...] DARRICK GIBBS Date: 2022-07-03 12:02 Normal [facility] CHLAMYDIA/GONOCOCCUS JOHANA (SW AB/URINE/PAPon 05-19-2022 Chlamydia trachomatis, JOHANA Negative Normal Negative [facility] Comment on above: Performed By: #### C T/NGNA #### [facility] [address] [address] [address] Gunner Dwyer Neisseria gonorrhoeae, JOHANA Negative Normal Negative [facility] Comment on above: Performed By: #### C T/NGNA #### [facility] [address] [place], [place] [address] Dr. Gunner Dwyer VAGINITIS/VAGINOSIS DNA PROB Yuri 05-17-2022 Violeta species Negative Normal Negative [facility] Comment on above: Performed By: #### G STAIN #### [facility] [address] [place] [address] Dr. Gunner Dwyer Gardnerella vaginalis Negative Normal Negative [facility] Comment on above: Performed By: #### G STAIN #### [facility] [address] [address] [address] Gunner Dwyer Trichomonas vaginalis Negative Normal Negative [facility] Comment on above: Performed By: #### G STAIN #### [facility] [address] [place] [address] Dr. Gunner Dwyer Provider Letteron 04-23-2022 Provider Letter April 23, 2022 TIARA PARIKH [address] [place] [address] TIARA PARIKH 1985 Dear Tiara, We have [...] [facility] [address], [place] [address] [facility] CBC AUTO DIFFon 04-03-2022 BASO # 0.0 103/ul Normal 0.0-0.1 [facility] Comment on above: Performed By: #### E STRONE #### [facility] [address] [place] [address] Dr. Gunner Dwyer Basophils/100 WBC (Bld) 0.2 % Normal 0.2-2.0 [facility] Comment on above: Performed By: #### E STRONE #### [facility] [address] [place] [address] Dr. Gunner Dwyer EO # 0.0 103/ul Normal 0.0-0.7 [facility] Comment on above: Performed By: #### E STRONE #### [facility] [address] [place] [address] Dr. Gunner Dwyer Eosinophils/100 WBC (Bld) 0.4 % Critically low 0.9-7.0 [facility] Comment on above: Performed By: #### E STRONE #### [facility] [address] [place] [address] Dr. Gunner Dwyer Erythrocyte distribution width (RBC) [Ratio] 11.9 % Normal 11.0-15.0 [facility] Comment on above: Performed By: #### E STRONE #### [facility] [address] [place] [address] Dr. Gunner Dwyer Hematocrit (Bld) [Volume fraction] 39.3 % Normal 36.0-48.0 [facility] Comment on above: Performed By: #### E STRONE #### [facility] [address] [place] [address] Dr. Gunner Dwyer Hemoglobin (Bld) [Mass/Vol] 13.3 g/dL Normal 12.0-16.0 [facility] Comment on above: Performed By: #### E STRONE #### [facility] [address] [place] [address] Dr. Gunner Dwyer IG # 0.01 10e3/ul Normal 0.00-0.03 [facility] Comment on above: Performed By: #### E STRONE #### [facility] [address] [place] [address] Dr. Gunner Dwyer IG % 0.2 % Normal 0.0-0.5 [facility] Comment on above: Performed By: #### E STRONE #### [facility] [address] [place] [address] Dr. Gunner Dwyer LYMPH # 1.3 103/ul Normal 1.2-3.8 [facility] Comment on above: Performed By: #### E STRONE #### [facility] [address] [place] [address] Dr. Gunner Dwyer Lymphocytes/100 WBC (Bld) 26.4 % Normal 20.5-60.0 [facility] Comment on above: Performed By: #### E STRONE #### [facility] [address] [place] [address] Dr. Gunner Dwyer MANUAL DIFF REQ NO Normal [facility] Comment on above: Performed By: #### E STRONE #### [facility] [address] [place] [address] Dr. Gunner Dwyer MCH (RBC) [Entitic mass] 30.6 pg Normal 26.7-34.0 [facility] Comment on above: Performed By: #### E STRONE #### [facility] [address] [place] [address] Dr. Gunner Dwyer MCHC (RBC) [Mass/Vol] 33.8 g/dL Normal 29.9-35.2 [facility] Comment on above: Performed By: #### E STRONE #### [facility] [address] [place] [address] Dr. Gunner Dwyer MCV (RBC) [Entitic vol] 90.3 fL Normal 81.0-99.0 [facility] Comment on above: Performed By: #### E STRONE #### [facility] [address] [place] [address] Dr. Gunner Dwyer MONO # 0.4 103/ul Normal 0.3-0.8 [facility] Comment on above: Performed By: #### E STRONE #### [facility] [address] [place] [address] Dr. Gunner Dwyer Monocytes/100 WBC (Bld) 7.4 % Normal 1.7-12.0 [facility] Comment on above: Performed By: #### E STRONE #### [facility] [address] [place] [address] Dr. Gunner Dwyer NEUT # 3.1 103/ul Normal 1.4-6.5 [facility] Comment on above: Performed By: #### E STRONE #### [facility] [address] [place] [address] Dr. Gunner Dwyer Neutrophils/100 WBC (Bld) 65.4 % Normal 43.0-75.0 [facility] Comment on above: Performed By: #### E STRONE #### [facility] [address] [place] [address] Dr. Gunner Dwyer Platelet mean volume (Bld) [Entitic vol] 10.7 fL Normal 9.5-13.5 [facility] Comment on above: Performed By: #### E STRONE #### [facility] [address] [place] [address] Dr. Gunner Dwyer PLT 125 103/ul Critically low 150-450 [facility] Comment on above: Result Comment: SPEC IMEN REDRAWN FOR VERIFICATION--SLIDE REVIEWED FOR PLATELET CLUMPS/NONE SEEN Performed By: #### E LACIENE #### [facility] [address] [place] [address] Dr. Gunner Dwyer RBC 4.35 106/ul Normal 4.20-5.40 [facility] Comment on above: Performed By: #### E LACIENE #### [facility] [address] [place] [address] Dr. Gunner Dwyer WBC 4.7 103/ul Normal 4.0-11.0 [facility] Comment on above: Performed By: #### E STRONE #### [facility] [address] [place] [address] Dr. Gunner Dwyer Covid-19 PCR ([facility])on 03-20 SARS-CoV-2 (COVID-19) RNA JOHANA+probe Ql (Unsp spec) Not detected Normal NOT DETECTED [facility] Comment on above: Result Comment: This test is not yet approved or cleared by the [place] FDA. When there are no FDA-approved or cleared tests available, and other criteria are met, FDA can make tests available under an emergency access mechanism called an Emergency Use Authorization (EUA). The EUA for this test is supported by the [employer] of Health and Human Service's (HHS's) declaration [...] SARS-CoV-2. Performed By: #### T POAB #### [facility] [address] [place] [address] Dr. Gunner Dwyer DRUG SCREEN RAPID (URINE)on 03-24-2022 AMP Negative Normal NEGATIVE [facility] Comment on above: Performed By: #### G STAIN #### [facility] [address] [place] [address] Dr. Gunner Dwyer BAR Negative Normal NEGATIVE [facility] Comment on above: Performed By: #### G STAIN #### [facility] [address] [place] [address] Dr. Gunner Dwyer BUP Positive Abnormal NEGATIVE [facility] Comment on above: Performed By: #### G STAIN #### [facility] [address] [place] [address] Dr. Gunner Dwyer BZO Negative Normal NEGATIVE [facility] Comment on above: Performed By: #### G STAIN #### [facility] [address] [place] [address] Dr. Gunner Dwyer JOSEPH Negative Normal NEGATIVE [facility] Comment on above: Performed By: #### G STAIN #### [facility] [address] [place] [address] Dr. Gunner Dwyer CUT-OFFS SEE BELOW Normal [facility] Comment on above: Result Comment: AMP (Amphetamine): 500ng/mL, BAR (Barbituates): 200 ng/mL, BZO (Benzodiazepines): 150 ng/mL, BUP (Buprenorphine): 10 ng/mL, JOSEPH (Cocaine): 150 ng/mL, mAMP (Methamphetamine): 500 ng/mL, MTD (Methadone): 200 ng/mL, OPI (Opiates): 100 ng/mL, OXY (Oxycodone): 100 ng/mL, PCP (Phencyclidine): 25 ng/mL, PPX (Propoxyphene): 300 ng/mL, THC (Cannabinoids): 50 ng/mL, TCA (Trycyclic Antidepressants): 300 ng/mL Performed By: #### G STAIN #### [facility] [address] [place] [address] Dr. Gunner Dwyer DRUG CUT HEADER DRUG CLASS TEST SYST EM CUT-OFF CONCENTRATIONS ARE FOLLOWS: Normal [facility] Comment on above: Performed By: #### G STAIN #### [facility] [address] [place] [address] Dr. Gunner Dwyer mAMP Negative Normal NEGATIVE [facility] Comment on above: Performed By: #### G STAIN #### [facility] [address] [place] [address] Dr. Gunner Dwyer MTD Negative Normal NEGATIVE [facility] Comment on above: Performed By: #### G STAIN #### [facility] [address] [place] [address] Dr. Gunner Dwyer OPI Negative Normal NEGATIVE [facility] Comment on above: Performed By: #### G STAIN #### [facility] [address] [place] [address] Dr. Gunner Dwyer OXY Negative Normal NEGATIVE [facility] Comment on above: Performed By: #### G STAIN #### [facility] [address] [place] [address] Dr. Gunner Dwyer PCP Negative Normal NEGATIVE [facility] Comment on above: Performed By: #### G STAIN #### [facility] [address] [place] [address] Dr. Gunner Dwyer PPX Negative Normal NEGATIVE [facility] Comment on above: Performed By: #### G STAIN #### [facility] [address] [place] [address] Dr. Gunner Dwyer TCA Negative Normal NEGATIVE [facility] Comment on above: Performed By: #### G STAIN #### [facility] [address] [place] [address] Dr. Gunner Dwyer THC Positive Abnormal NEGATIVE [facility] Comment on above: Performed By: #### G STAIN #### [facility] [address] [place] [address] Dr. Gunner Dwyer CORTISOL FREE, SERUMon 03-08 Cortisol, Free Dialysis, LCMS 0.470 ug/dL Normal [facility] Comment on above: Result Comment: Thes e tests were developed and their performance characteristics determined by [employer]. They have not been cleared or approved by the Food and Drug Administration. Reference Range: 8 AM 0.10 - 1.20 4 PM 0.042 - 0.872 Performed By: #### C T/NGNA #### [facility] [address] [place] [address] Dr. Gunner Dwyer SEROTONINon 03-04-2022 Serotonin, Serum 33 ng/mL Normal 31-207 [facility] Comment on above: Performed By: #### E STRONE #### [facility] [address] [place] [address] Dr. Gunner Dwyer TESTOSTERONE, FREE,DIRECT, T OTALon 03-02-2022 Free Testosterone(Direct) 0.5 pg/mL Normal 0.0-4.2 [facility] Comment on above: Result Comment: Perf ormed at: BN Performed By: #### C T/NGNA #### [facility] [address] [place] [address] Dr. Gunner Dwyer Testosterone [Mass/Vol] 18 ng/dL Normal 8-60 [facility] Comment on above: Result Comment: Perf ormed at: CB Performed By: #### C T/NGNA #### [facility] [address] [place] [address] Dr. Gunner Dwyer ESTRONEon 02-28-2022 Estrone, Serum 39 pg/mL Normal 27-231 [facility] Comment on above: Result Comment: Rang e Adult (Premenopausal) 27 - 231 Menstrual Cycle (1-10 days) 19 - 149 Menstrual Cycle (11-20 days) 32 - 176 Menstrual Cycle (21-30 days) 37 - 200 Performed By: #### E STRONE #### [facility] [address] [place] [address] Dr. Gunner Dywer REVERSE T3on 02-28-2022 Reverse T3, Serum 32.0 ng/dL Critically high 9.2-24.1 [facility] Comment on above: Result Comment: This test was developed and its performance characteristics determined by [facility]. It has not been cleared or approved by the Food and Drug Administration. Performed By: #### G STAIN #### [facility] [address] [place] [address] Dr. Gunner Dwyer VIT D 1 25 DIHYDROXYon 02-28 Calcitriol(1,25 di-OH Vit D) 26.1 pg/mL Normal 24.8-81.5 [facility] Comment on above: Performed By: #### Mauricio SANCHEZ #### [facility] [address] [place] [address] Dr. Gunner Dwyer THYROGLOBULIN AB AND THYROGL OBULINon 02-27-2022 Thyroglobulin Antibody <1.0 Normal 0.0-0.9 [facility] Comment on above: Result Comment: Thyr oglobulin Antibody measured by Roh[employer] Bobo Methodology Performed By: #### C T/NGNA #### [facility] [address] [address] [address] Gunner Dwyer Thyroglobulin by REJI 2.7 ng/mL Normal 1.5-38.5 [facility] Comment on above: Result Comment: Acco rding [...] 0.1 ng/mL . Thyroglobulin measured by Roh[employer] Bobo Immunometric Assay Performed By: #### C T/NGNA #### [facility] [address] [place] [address] Dr. Gunner Dwyer C-PEPTIDE, SERUMon C-Peptide, Serum 3.7 ng/mL Normal 1.1-4.4 [facility] Comment on above: Result Comment: C-Pe ptide reference interval is for fasting patients. Performed By: #### C T/NGNA #### [facility] [address] [address] [address] Gunner Dwyer DHEA-SULFATEon 02-26-2022 DHEA-Sulfate 43.9 ug/dL Critically low 57.3-279.2 [facility] Comment on above: Performed By: #### C T/NGNA #### [facility] [address] [place] [address] Dr. Gunner Dwyer ESTRADIOLon 02-26-2022 Estradiol 86.3 pg/mL Normal [facility] Comment on above: Result Comment: Adul t Female: Follicular phase 12.5 - 166.0 Ovulation phase 85.8 - 498.0 Luteal phase 43.8 - 211.0 Postmenopausal <6.0 - 54.7 1st trimester 215.0 - >4300.0 Paolo ECLIA methodology Performed By: #### E STRADI #### [facility] [address] [place] [address] Dr. Gunner Dwyer INSULINon 02-26-2022 Insulin 17.9 uIU/mL Normal 2.6-24.9 [facility] Comment on above: Performed By: #### T POAB #### [facility] [address] [place] [address] Dr. Gunner Dwyer PROGESTERONEon 02-26-2022 Progesterone 0.9 ng/mL Normal [facility] Comment on above: Result Comment: Foll icular phase 0.1 - 0.9 Luteal phase 1.8 - 23.9 Ovulation phase 0.1 - 12.0 First trimester 11.0 - 44.3 Second trimester 25.4 - 83.3 Third trimester 58.7 - 214.0 Postmenopausal 0.0 - 0.1 Performed By: #### E STRONE #### [facility] [address] [place] [address] Dr. Gunner Dwyer SEX HORMONE-BINDING GLOBULIN on 02-26-2022 Sex Horm Binding Glob, Serum 81.9 nmol/L Normal 24.6-122.0 [facility] Comment on above: Performed By: #### C T/NGNA #### [facility] [address] [place] [address] Dr. Gunner Dwyer T3, TOTAL (TRIIODOTHYRONINE) on 02-26-2022 T3, TOTAL 196 ng/dL Critically high 71-180 [facility] Comment on above: Performed By: #### T POAB #### [facility] [address] [place] [address] Dr. Gunner Dwyer THYROID PEROXIDASE ABon 11- Thyroid Peroxidase (TPO) Ab 31 IU/mL Normal 0-34 [facility] Comment on above: Performed By: #### T POAB #### [facility] [address] [address] [address] Gunner Dwyer FERRITINon 02-25-2022 Ferritin [Mass/Vol] 103.0 ng/mL Normal 6.2-137.0 [facility] Comment on above: Performed By: #### C T/NGNA #### [facility] [address] [address] [address] Gunner Dwyer FREE T3on 02-25-2022 FREE T3 2.95 pg/mlL Normal 2.18-3.98 [facility] Comment on above: Performed By: #### G YAMILA, FT3, T4, TSH #### [facility] [address] [place] [address] Dr. Gunner Dwyer FREE T4on 02-25-2022 Free T4 [Mass/Vol] 1.15 ng/dL Normal 0.76-1.46 [facility] Comment on above: Performed By: #### C T/NGNA #### [facility] [address] [place] [address] Dr. Gunner Dwyer GLUCOSE BLOODon 02-25-2022 Glucose [Mass/Vol] 100 mg/dL Normal 74-106 [facility] Comment on above: Performed By: #### G YAMILA, FT3, T4, TSH #### [facility] [address] [place] [address] Dr. Gunner Dwyer GLYCOHEMOGLOBIN A1Con 2021 ADA RECOMMENDATION SEE BELOW Normal [facility] Comment on above: Result Comment: ADA RECOMMENDED LIMIT 4.0 - 6.0 ADA THERAPEUTIC TARGET < 7.0 ACTION SUGGESTED > 7.0 Performed By: #### A 1C #### [facility] [address] [place] [address] Dr. Gunner Dwyer Glucose [Mass/Vol] 105 mg/dL Normal [facility] Comment on above: Performed By: #### A 1C #### [facility] [address] [place] [address] Dr. Gunner Dwyer HbA1c (Bld) [Mass fraction] 5.3 % Normal 4.5-6.2 [facility] Comment on above: Performed By: #### A 1C #### [facility] [address] [place] [address] Dr. Gunner Dwyer T4on 02-25-2022 T4 [Mass/Vol] 13.60 ug/dL Normal 4.80-13.90 [facility] Comment on above: Performed By: #### G YAMILA, FT3, T4, TSH #### [facility] [address] [place] [address] Dr. Gunner Dwyer TSHon 02-25-2022 TSH 0.759 uIU/mL Normal 0.358-3.740 [facility] Comment on above: Performed By: #### G YAMILA, FT3, T4, TSH #### [facility] [address] [place] [address] Dr. Gunner Dwyer CULTURE OTHERon 02-08-2022 CULTURE [...] F Trimethoprim/Sulfameth oxazole <=20 S F Normal [facility] Comment on above: Performed By: #### E STRONE #### [facility] [address] [place] [address] Dr. Gunner Dwyer CULTURE ANAEROBICon 02-06-20 CULTURE ANAEROBIC Culture Observations : NO GROWTH OF ANAEROBES AT 72 HOURS. Normal [facility] Comment on above: Performed By: #### E STRONE #### [facility] [address] [place] [address] Dr. Gunner Dwyer GRAM STAINon 02-05-2022 DIPHTHEROIDS Normal [facility] Comment on above: Performed By: #### G STAIN #### [facility] [address] [place] [address] Dr. Gunner Dwyer EPITHELIALS RARE Normal [facility] Comment on above: Performed By: #### G STAIN #### [facility] [address] [address] [address] Gunner Dwyer FUNGAL ELEMENTS Normal [facility] Comment on above: Performed By: #### G STAIN #### [facility] [address] [address] [address] Gunner Dwyer GRAM NEG BACILLI RARE Normal [facility] Comment on above: Performed By: #### G STAIN #### [facility] [address] [address] [address] Gunner Dwyer GRAM NEG DIPPLOCOCCI MODERATE Normal [facility] Comment on above: Performed By: #### G STAIN #### [facility] [address] [place] [address] Dr. Gunner Dwyer GRAM POS BACILLI Normal [facility] Comment on above: Performed By: #### G STAIN #### [facility] [address] [place] [address] Dr. Gunner Dwyer GRAM POSITIVE COCCI FEW Normal [facility] Comment on above: Performed By: #### G STAIN #### [facility] [address] [place] [address] Dr. Gunner Dwyer GRAM STAIN SOURCE nipple discharge Normal [facility] Comment on above: Performed By: #### G STAIN #### [facility] [address] [place] [address] Dr. Gunner Dwyer GS_DIPTH Normal [facility] Comment on above: Performed By: #### G STAIN #### [facility] [address] [place] [address] Dr. Gunner Dwyer WBC Normal [facility] Comment on above: Performed By: #### G STAIN #### [facility] [address] [place] [address] Dr. Gunner Dwyer INSULINon 01-31-2022 Insulin 8.5 uIU/mL Normal 2.6-24.9 [facility] Comment on above: Performed By: #### G STAIN #### [facility] [address] [place] [address] Dr. Gunner Dwyer CBC AUTO DIFFon 01-30-2022 BASO # 0.0 103/ul Normal 0.0-0.1 [facility] Comment on above: Performed By: #### G STAIN #### [facility] [address] [address] [address] Gunner Dwyer Basophils/100 WBC (Bld) 0.6 % Normal 0.2-2.0 [facility] Comment on above: Performed By: #### G STAIN #### [facility] [address] [place] [address] Dr. Gunner Dwyer EO # 0.1 103/ul Normal 0.0-0.7 [facility] Comment on above: Performed By: #### G STAIN #### [facility] [address] [place] [address] Dr. Gunner Dwyer Eosinophils/100 WBC (Bld) 2.5 % Normal 0.9-7.0 [facility] Comment on above: Performed By: #### G STAIN #### [facility] [address] [place] [address] Dr. Gunner Dwyer Erythrocyte distribution width (RBC) [Ratio] 11.9 % Normal 11.0-15.0 [facility] Comment on above: Performed By: #### G STAIN #### [facility] [address] [place] [address] Dr. Gunner Dwyer Hematocrit (Bld) [Volume fraction] 42.8 % Normal 36.0-48.0 [facility] Comment on above: Performed By: #### G STAIN #### [facility] [address] [place] [address] Dr. Gunner Dwyer Hemoglobin (Bld) [Mass/Vol] 13.8 g/dL Normal 12.0-16.0 [facility] Comment on above: Performed By: #### G STAIN #### [facility] [address] [place] [address] Dr. Gunner Dwyer IG # 0.01 10e3/ul Normal 0.00-0.03 [facility] Comment on above: Performed By: #### G STAIN #### [facility] [address] [place] [address] Dr. Gunner Dywer IG % 0.2 % Normal 0.0-0.5 [facility] Comment on above: Performed By: #### G STAIN #### [facility] [address] [place] [address] Dr. Gunner Dwyer LYMPH # 1.4 103/ul Normal 1.2-3.8 [facility] Comment on above: Performed By: #### G STAIN #### [facility] [address] [place] [address] Dr. Gunner Dwyer Lymphocytes/100 WBC (Bld) 27.5 % Normal 20.5-60.0 [facility] Comment on above: Performed By: #### G STAIN #### [facility] [address] [place] [address] Dr. Gunner Dwyer MANUAL DIFF REQ NO Normal [facility] Comment on above: Performed By: #### G STAIN #### [facility] [address] [place] [address] Dr. Gunner Dwyer MCH (RBC) [Entitic mass] 31.1 pg Normal 26.7-34.0 [facility] Comment on above: Performed By: #### G STAIN #### [facility] [address] [place] [address] Dr. Gunner Dwyer MCHC (RBC) [Mass/Vol] 32.2 g/dL Normal 29.9-35.2 [facility] Comment on above: Performed By: #### G STAIN #### [facility] [address] [place] [address] Dr. Gunner Dwyer MCV (RBC) [Entitic vol] 96.4 fL Normal 81.0-99.0 [facility] Comment on above: Performed By: #### G STAIN #### [facility] [address] [place] [address] Dr. Gunner Dwyer MONO # 0.3 103/ul Normal 0.3-0.8 [facility] Comment on above: Performed By: #### G STAIN #### [facility] [address] [place] [address] Dr. Gunner Dwyer Monocytes/100 WBC (Bld) 6.1 % Normal 1.7-12.0 [facility] Comment on above: Performed By: #### G STAIN #### [facility] [address] [place] [address] Dr. Gunner Dywer NEUT # 3.3 103/ul Normal 1.4-6.5 [facility] Comment on above: Performed By: #### G STAIN #### [facility] [address] [place] [address] Dr. Gunner Dwyer Neutrophils/100 WBC (Bld) 63.1 % Normal 43.0-75.0 [facility] Comment on above: Performed By: #### G STAIN #### [facility] [address] [place] [address] Dr. Gunner Dwyer Platelet mean volume (Bld) [Entitic vol] 10.5 fL Normal 9.5-13.5 [facility] Comment on above: Performed By: #### G STAIN #### [facility] [address] [place] [address] Dr. Gunner Dwyer PLT 171 103/ul Normal 150-450 [facility] Comment on above: Performed By: #### G STAIN #### [facility] [address] [place] [address] Dr. Gunner Dwyer RBC 4.44 106/ul Normal 4.20-5.40 [facility] Comment on above: Performed By: #### G STAIN #### [facility] [address] [place] [address] Dr. Gunner Dwyer WBC 5.2 103/ul Normal 4.0-11.0 [facility] Comment on above: Performed By: #### G STAIN #### [facility] [address] [place] [address] Dr. Gunner Dwyer FREE THYROXINE INDEX T7on FTI 3.05 Normal 1.30-4.50 [facility] Comment on above: Performed By: #### T POAB #### [facility] [address] [place] [address] Dr. Gunner Dwyer T3U 24.0 % Critically low 30.0-39.0 [facility] Comment on above: Performed By: #### T POAB #### [facility] [address] [address] [address] Gunner Dwyer T4 [Mass/Vol] 12.70 ug/dL Normal 4.80-13.90 [facility] Comment on above: Performed By: #### T POAB #### [facility] [address] [address] [address] Gunner Dwyer GLYCOHEMOGLOBIN A1Con 2021 ADA RECOMMENDATION SEE BELOW Normal [facility] Comment on above: Result Comment: ADA RECOMMENDED LIMIT 4.0 - 6.0 ADA THERAPEUTIC TARGET < 7.0 ACTION SUGGESTED > 7.0 Performed By: #### T POAB #### [facility] [address] [address] [address] Gunner Dwyer Glucose [Mass/Vol] 97 mg/dL Normal [facility] Comment on above: Performed By: #### T POAB #### [facility] [address] [address] [address] Gunner Dwyer HbA1c (Bld) [Mass fraction] 5.0 % Normal 4.5-6.2 [facility] Comment on above: Performed By: #### T POAB #### [facility] [address] [address] [address] Gunner Dwyer IRONon 01-30-2022 Iron [Mass/Vol] 101.0 ug/dL Normal 50.0-170.0 [facility] Comment on above: Performed By: #### C T/NGNA #### [facility] [address] [address] [address] Gunner Dwyer LIPID PROFILEon 01-30-2022 CHOL-HDL RATIO NORM SEE BELOW Normal [facility] Comment on above: Result Comment: 3.3 - 4.4 LOW RISK 4.4 - 7.1 AVERAGE RISK 7.1 - 11.0 MODERATE RISK >11.0 HIGH RISK Performed By: #### T POAB #### [facility] [address] [place] [address] Dr. Gunner Dwyer Cholesterol [Mass/Vol] 168 mg/dL Normal <=200 [facility] Comment on above: Performed By: #### T POAB #### [facility] [address] [address] [address] Gunner Dwyer Cholesterol in HDL [Mass/Vol] 88 mg/dL Critically high 40-60 [facility] Comment on above: Performed By: #### T POAB #### [facility] [address] [id number] [address] Gunner Dwyer Cholesterol in LDL [Mass/Vol] 69.6 mg/dL Normal [facility] Comment on above: Performed By: #### T POAB #### [facility] [address] [address] [address] Gunner Dwyer Cholesterol.total/Ch olesterol in HDL [Mass ratio] 1.9 {ratio} Normal [facility] Comment on above: Performed By: #### T POAB #### [facility] [address] [address] [address] Gunner Dwyer HDL NORMAL > or = 60 mg/dl - LO W CARDIOVASCULAR RISK <40 mg/dl - HIGH CARDIOVASCULAR RISK Normal [facility] Comment on above: Performed By: #### T POAB #### [facility] [address] [address] [address] Gunner Dwyer LDL CALC NORMAL SEE BELOW Normal [facility] Comment on above: Result Comment: <100 mg/dl OPTIMAL 100 - 129 mg/dl NEAR OR ABOVE OPTIMAL 130 - 159 mg/dl BORDERLINE HIGH 160 - 189 mg/dl HIGH >190 mg/dl VERY HIGH Performed By: #### T POAB #### [facility] [address] [address] [address] Gunner Dwyer Triglyceride [Mass/Vol] 52 mg/dL Normal <=150 [facility] Comment on above: Performed By: #### T POAB #### [facility] [address] [address] [address] Gunner Dwyer VLDL CALC 10.4 mg/dL Normal [facility] Comment on above: Performed By: #### T POAB #### [facility] [address] [address] [address] Gunner Dwyer PROF 14(COMP METB)on 01-30- 022 Albumin [Mass/Vol] 4.0 g/dL Normal 3.4-5.0 [facility] Comment on above: Performed By: #### T POAB #### [facility] [address] [place] [address] Dr. Gunner Dwyer Albumin/Globulin [Mass ratio] 1.2 {ratio} Normal [facility] Comment on above: Performed By: #### T POAB #### [facility] [address] [address] [address] Gunner Dwyer ALP [Catalytic activity/Vol] 62 U/L Normal 46-116 [facility] Comment on above: Performed By: #### T POAB #### [facility] [address] [place] [address] Dr. Gunner Dwyer ALT [Catalytic activity/Vol] 60 U/L Critically high 14-59 [facility] Comment on above: Performed By: #### T POAB #### [facility] [address] [place] [address] Dr. Gunner Dwyer Anion gap [Moles/Vol] 10.8 mmol/L Normal [facility] Comment on above: Performed By: #### T POAB #### [facility] [address] [place] [address] Dr. Gunner Dwyer AST [Catalytic activity/Vol] 35 U/L Normal 15-37 [facility] Comment on above: Performed By: #### T POAB #### [facility] [address] [place] [address] Dr. Gunner Dwyer Bilirubin [Mass/Vol] 0.4 mg/dL Normal 0.2-1.0 [facility] Comment on above: Performed By: #### T POAB #### [facility] [address] [place] [address] Dr. Gunner Dwyer Calcium [Mass/Vol] 8.8 mg/dL Normal 8.5-10.1 [facility] Comment on above: Performed By: #### T POAB #### [facility] [address] [place] [address] Dr. Gunner Dwyer Chloride [Moles/Vol] 104 mmol/L Normal 98-107 [facility] Comment on above: Performed By: #### T POAB #### [facility] [address] [address] [address] Gunner Dwyer CO2 [Moles/Vol] 28.2 mmol/L Normal 21.0-32.0 [facility] Comment on above: Performed By: #### T POAB #### [facility] [address] [address] [address] Gunner Dwyer Creatinine [Mass/Vol] 0.69 mg/dL Normal 0.55-1.02 [facility] Comment on above: Performed By: #### T POAB #### [facility] [address] [address] [address] Gunner Dwyer EGFR-AF [place] >60 Normal >=60 [facility] Comment on above: Performed By: #### T POAB #### [facility] [address] [address] [address] Gunner Dwyer EGFR-NON AF [place] >60 Normal >=60 [facility] Comment on above: Performed By: #### T POAB #### [facility] [address] [address] [address] Gunner Dwyer Globulin (S) [Mass/Vol] 3.3 g/dL Normal [facility] Comment on above: Performed By: #### T POAB #### [facility] [address] [address] [address] Gunner Dwyer Glucose [Mass/Vol] 95 mg/dL Normal 74-106 [facility] Comment on above: Performed By: #### T POAB #### [facility] [address] [address] [address] Gunner Dwyer Potassium [Moles/Vol] 4.0 mmol/L Normal 3.5-5.1 [facility] Comment on above: Performed By: #### T POAB #### [facility] [address] [address] [address] Gunner Dwyer Protein [Mass/Vol] 7.3 g/dL Normal 6.4-8.2 [facility] Comment on above: Performed By: #### T POAB #### [facility] [address] [address] [address] Gunner Dwyer Sodium [Moles/Vol] 139 mmol/L Normal 136-145 [facility] Comment on above: Performed By: #### T POAB #### [facility] [address] [address] [address] Gunner Dwyer Urea nitrogen [Mass/Vol] 18.0 mg/dL Normal 7.0-18.0 [facility] Comment on above: Performed By: #### T POAB #### [facility] [address] [place] [address] Dr. Gunner Dwyer Urea nitrogen/Creatinine [Mass ratio] 26.1 mg/mg Normal [facility] Comment on above: Performed By: #### T POAB #### [facility] [address] [place] [address] Dr. Gunner Dwyer TSHon 01-30-2022 TSH 0.529 uIU/mL Normal 0.358-3.740 [facility] Comment on above: Performed By: #### T POAB #### [facility] [address] [place] [address] Dr. Gunner Dwyer VITAMIN D 25 OHon 01-30-2022 VIT D 25-OH 30.6 ng/mL Normal [facility] Comment on above: Performed By: #### C T/NGNA #### [facility] [address] [place] [address] Dr. Gunner Dwyer VIT D RANGES SEE BELOW Normal [facility] Comment on above: Result Comment: <20 ng/mL Vit D deficient 20 - <30 ng/mL Vit D insufficient 30 - 100 ng/mL Vit D sufficient >100 ng/mL Potential Toxicity Performed By: #### C T/NGNA #### [facility] [address] [place] [address] Dr. Gunner Dwyer XR LSPINE MIN 4 [...] by: GUILLE MISTRY Date: 2022-01-30 18:59 Normal [facility] Vital Signs Date Time Vital Sign Value Performing Clinician Facility 10-26-2024 16:14-0400 Body height 170.2 cm Serg Dolce DPM FACFAS Work Phone: [facility] 10-26-2024 16:14-0400 Body mass index (BMI) [Ratio] 43.54 kg/m2 Serg Dolce DPM FACFAS Work Phone: [facility] 10-26-2024 16:14-0400 Body weight 126.1 kg Serg Dolce DPM FACFAS Work Phone: [facility] 10-26-2024 16:14-0400 Diastolic blood pressure 78 mm[Hg] Serg Dolce DPM FACFAS Work Phone: [facility] 10-26-2024 16:14-0400 Heart rate 79 /min Serg Dolce DPM FACFAS Work Phone: [facility] 10-26-2024 16:14-0400 Systolic blood pressure 128 mm[Hg] Serg Dolce DPM FACFAS Work Phone: [facility] 10-19-2024 16:51-0400 Body height 170.2 cm Serg Dolce DPM FACFAS Work Phone: [facility] 10-19-2024 16:51-0400 Body mass index (BMI) [Ratio] 43.54 kg/m2 Serg Dolce DPM FACFAS Work Phone: [facility] 10-19-2024 16:51-0400 Body weight 126.1 kg Serg Dolce DPM FACFAS Work Phone: [facility] 10-19-2024 16:51-0400 Diastolic blood pressure 77 mm[Hg] Serg Dolce DPM FACFAS Work Phone: [facility] 10-19-2024 16:51-0400 Heart rate 74 /min Serg Dolce DPM FACFAS Work Phone: [facility] 10-19-2024 16:51-0400 Systolic blood pressure 126 mm[Hg] Serg Dolce DPM FACFAS Work Phone: [facility] 10-05-2024 16:19-0400 Body height 170.2 cm Serg Dolce DPM FACFAS Work Phone: [facility] 10-05-2024 16:19-0400 Body mass index (BMI) [Ratio] 43.54 kg/m2 Serg Dolce DPM FACFAS Work Phone: [facility] 10-05-2024 16:19-0400 Body weight 126.1 kg Serg Dolce DPM FACFAS Work Phone: [facility] 10-05-2024 16:19-0400 Diastolic blood pressure 75 mm[Hg] Serg Dolce DPM FACFAS Work Phone: [facility] 10-05-2024 16:19-0400 Heart rate 73 /min Serg Dolce DPM FACFAS Work Phone: [facility] 10-05-2024 16:19-0400 Systolic blood pressure 125 mm[Hg] Serg Dolce DPM FACFAS Work Phone: [facility] 09-14-2024 16:38-0400 Body height 170.2 cm Serg Dolce DPM FACFAS Work Phone: [facility] 09-14-2024 16:38-0400 Body mass index (BMI) [Ratio] 43.54 kg/m2 Serg Dolce DPM FACFAS Work Phone: [facility] 09-14-2024 16:38-0400 Body weight 126.1 kg Serg Dolce DPM FACFAS Work Phone: [facility] 09-14-2024 16:38-0400 Diastolic blood pressure 74 mm[Hg] Serg Dolce DPM FACFAS Work Phone: [facility] 09-14-2024 16:38-0400 Heart rate 74 /min Serg Mata DPM FACFAS Work Phone: [facility] 09-14-2024 16:38-0400 Systolic blood pressure 124 mm[Hg] Serg Mata DPM FACFAS Work Phone: [facility] 09-06-2024 15:30-0400 Body height 170.2 cm Yared Brown DPM Work Phone: [facility] 09-06-2024 15:30-0400 Body mass index (BMI) [Ratio] 43.54 kg/m2 Yared Brown DPM Work Phone: [facility] 09-06-2024 15:30-0400 Body weight 126.1 kg Yared Brown DPM Work Phone: [facility] 09-06-2024 15:30-0400 Respiratory rate 16 /min Yared Brown DPM Work Phone: [facility] 08-29-2024 15:22-0400 Body height 170.2 cm Yared Brown DPM Work Phone: [facility] 08-29-2024 15:22-0400 Body mass index (BMI) [Ratio] 43.54 kg/m2 Yared Brown DPM Work Phone: [facility] 08-29-2024 15:22-0400 Body weight 126.1 kg Yared Brown DPM Work Phone: [facility] 08-29-2024 15:22-0400 Respiratory rate 16 /min Yared Brown DPM Work Phone: [facility] 08-08-2024 15:44-0400 Body height 170.2 cm Yared Brown DPM Work Phone: [facility] 08-08-2024 15:44-0400 Body mass index (BMI) [Ratio] 43.54 kg/m2 Yared Brown DPM Work Phone: [facility] 08-08-2024 15:44-0400 Body weight 126.1 kg Yared Brown DPM Work Phone: [facility] 08-08-2024 15:44-0400 Respiratory rate 16 /min Yared Terrazas DPM Work Phone: [facility] 12-17-2023 11:15-0400 Diastolic blood pressure 70 mm[Hg] Darrick Benitez MD Work Phone: [facility] 12-17-2023 11:15-0400 Heart rate 84 /min Darrick Benitez MD [facility] [employer] 12-17-2023 11:15-0400 Respiratory rate 16 /min Darrick Benitez MD Work Phone: [facility] 12-17-2023 11:15-0400 SaO2% (BldA) [Mass fraction] 96 % Darrick Benitez MD [facility] [employer] 12-17-2023 11:15-0400 Systolic blood pressure 133 mm[Hg] Darrick Benitez MD Work Phone: [facility] 12-17-2023 11:00-0400 Body temperature 96.8 [degF] Darrick Benitez MD Work Phone: [facility] 12-03-2023 08:44-0400 Body temperature 97.5 [degF] Darrick Benitez MD Work Phone: [facility] 12-03-2023 08:44-0400 Diastolic blood pressure 70 mm[Hg] Darrick Benitez MD Work Phone: [facility] 12-03-2023 08:44-0400 Heart rate 58 /min Darrick Benitez MD Work Phone: [facility] 12-03-2023 08:44-0400 Respiratory rate 15 /min Darrick Benitez MD Work Phone: [facility] 12-03-2023 08:44-0400 SaO2% (BldA) [Mass fraction] 95 % Darrick Benitez MD Work Phone: [facility] 12-03-2023 08:44-0400 Systolic blood pressure 123 mm[Hg] Darrick Benitez MD Work Phone: [facility] 11-30-2023 13:11-0400 Body height 170.2 cm Darrick Benitez MD Work Phone: [facility] 11-30-2023 13:11-0400 Body mass index (BMI) [Ratio] 40.57 kg/m2 Darrick Benitez MD Work Phone: [facility] 11-30-2023 13:11-0400 Body weight 117.48 kg Darrick Benitez MD Work Phone: [facility] 11-21-2023 15:57-0400 Body mass index (BMI) [Ratio] 40.71 kg/m2 Saul Patterson MD [facility] 11-21-2023 15:57-0400 Body temperature 97.3 [degF] Saul Patterson MD [facility] 11-21-2023 15:57-0400 Body weight 117.9 kg Saul Patterson MD [facility] 11-21-2023 15:57-0400 Diastolic blood pressure 73 mm[Hg] Saul Patterson MD [facility] 11-21-2023 15:57-0400 Heart rate 82 /min Saul Patterson MD [facility] [employer] 11-21-2023 15:57-0400 Respiratory rate 16 /min Saul Patterson MD [facility] 11-21-2023 15:57-0400 SaO2% (BldA) [Mass fraction] 100 % Saul Patterson MD [facility] 11-21-2023 15:57-0400 Systolic blood pressure 127 mm[Hg] Saul Patterson MD [facility] 11-21-2023 11:52-0400 Body height 170.18 cm MD Sherin House Work Phone: [facility] 11-21-2023 11:52-0400 Body temperature 97.4 [degF] MD Sherin House Work Phone: [facility] 11-21-2023 11:52-0400 Body weight 117 kg MD Sherin House Work Phone: [facility] 11-21-2023 11:52-0400 Diastolic blood pressure 74 mm[Hg] MD Sherin House Work Phone: [facility] 11-21-2023 11:52-0400 Heart rate 78 /min MD Sherin House Work Phone: [facility] 11-21-2023 11:52-0400 Respiratory rate 18 /min MD Sherin House Work Phone: [facility] 11-21-2023 11:52-0400 SaO2% (BldA) [Mass fraction] 97 % MD Sherin House Work Phone: [facility] 11-21-2023 11:52-0400 Systolic blood pressure 135 mm[Hg] MD Sherin House Work Phone: [facility] 12-11-2022 13:54-0400 Blood Pressure Location Miguelina KIRKLANDL [facility] [place] 12-11-2022 13:54-0400 Diastolic blood pressure 84 mm[Hg] Miguelina NILL [facility] [place] 12-11-2022 13:54-0400 Heart rate 72 /min Miguelina NILL [facility] [place] 12-11-2022 13:54-0400 Respiratory rate 16 /min Miguelina NILL [facility] [place] 12-11-2022 13:54-0400 Systolic blood pressure 126 mm[Hg] Miguelina NILL [facility] [place] 08-06-2022 13:25-0400 Diastolic blood pressure 84 mm[Hg] Miguelina KIRKLANDL [facility] [place] 08-06-2022 13:25-0400 Heart rate 70 /min Miguelina KIRKLANDL [facility] [place] 08-06-2022 13:25-0400 Respiratory rate 16 /min Miguelina KIRKLANDL [facility] [place] 08-06-2022 13:25-0400 Systolic blood pressure 122 mm[Hg] Miguelina KIRKLANDL [facility] [place] 02-19-2021 16:45-0400 Body height 170.18 cm Guille Abrams Other [employer] Other 02-19-2021 16:45-0400 Body mass index (BMI) [Ratio] 36.02 kg/m2 Guille Abrams Other [employer] Other 02-19-2021 16:45-0400 Body weight 104.33 kg Guille Abrams Other [employer] Other Encounters Encounter Date Encounter Type Care Provider Facility Start: 10-26-2024 End: 10-26-2024 Postop follow up visit related to original px Serg Mata DPM FACFAS Work Phone: [facility] Comment on above: Other synovitis and tenosynovitis, right ankle and foot (Primary Dx) Start: 10-26-2024 End: 10-26-2024 ambulatory SERG MATA Not Available Start: 10-26-2024 End: 10-26-2024 Bamboo flowsheet Serg Mata DPM FACFAS Work Phone: [facility] Start: 10-26-2024 End: 10-26-2024 Bamboo flowsheet eSrg Mata DPM FACFAS Work Phone: [facility] Start: 10-19-2024 End: 10-19-2024 Patient encounter procedure Serg D Dolce DPM FAC[facility]AS Work Phone: [facility] Comment on above: Other synovitis and tenosynovitis, right ankle and foot (Primary Dx); Contracture of right ankle Start: 10-19-2024 End: 10-19-2024 ambulatory SERG D DOLCE Not Available Start: 10-19-2024 End: 10-19-2024 Bamboo flowsheet Serg D Dolce DPM FACFAS Work Phone: [facility] Start: 10-19-2024 End: 10-19-2024 Bamboo flowsheet Serg D Dolce DPM FACFAS Work Phone: [facility] Start: 10-12-2024 End: 10-12-2024 Telephone encounter Serg D Dolce DPM FACFAS Work Phone: [facility] Start: 10-05-2024 End: 10-05-2024 ambulatory SERG D DOLCE Not Available Start: 10-05-2024 End: 10-05-2024 Office outpatient visit 25 minutes Serg D Dolce DPM FAC[facility]AS Work Phone: [facility] Comment on above: Osteochondritis diss ecans of right ankle (Primary Dx); Other synovitis and tenosynovitis, right ankle and foot Start: 10-03-2024 End: 10-03-2024 Clinisync Result Encounter Serg D Dolce DPM FACFAS Work Phone: [facility] External Department Unsolicited Start: 10-03-2024 End: 10-03-2024 Clinisync Result Encounter Serg D Dolce DPM FACFAS Work Phone: [facility] External Department Unsolicited Start: 09-15-2024 Emergency department patient visit [facility] Facility:[facility] Start: 09-14-2024 End: 09-14-2024 Office outpatient visit 25 minutes Serg D Dolce DPM FACFAS Work Phone: [facility] [...] 15 minutes Yared Terrazas DPM Work Phone: [facility] Comment on above: Sprain of anterior t alofibular ligament of right ankle, initial encounter (Primary Dx); Contracture of right ankle; Solitary bone cyst of right foot; Osteochondritis dissecans of right ankle Start: 09-06-2024 End: 09-06-2024 ambulatory YARED TERRAZAS Not Available Start: 09-06-2024 End: 09-06-2024 Bamboo flowsheet Yared Terrazas DPM Work Phone: [facility] Start: 09-06-2024 End: 09-06-2024 Bamboo flowsheet Yared Terrazas DPM Work Phone: [facility] Start: 09-05-2024 End: 09-05-2024 ambulatory YARED TERRAZAS Not Available Start: 08-29-2024 End: 08-29-2024 Office outpatient visit 15 minutes Yared Terrazas DPM Work Phone: [facility] Comment on above: Sprain of anterior [...] 08-08-2024 Office outpatient new 45 minutes Yared Terrazas DPM Work Phone: [facility] [...] Start: 07-17-2024 Emergency department patient visit SHERIN HOUSE [facility] Start: 12-17-2023 End: 12-17-2023 ambulatory DARRICK BENITEZ [facility] Start: 12-17-2023 End: 12-17-2023 Subsequent hospital visit by physician Darrick Benitez MD Work Phone: [facility] Comment on above: H/O umbilical hernia repair (Primary Dx); S/P left inguinal hernia repair Start: 12-03-2023 End: 12-03-2023 ambulatory DARRICK BENITEZ [facility] Start: 12-03-2023 End: 12-03-2023 Subsequent hospital visit by physician Darrick Benitez MD Work Phone: [facility] Start: 11-21-2023 End: 11-21-2023 Emergency department patient visit SHERIN QUARLES [facility] Comment on above: Umbilical hernia wit hout obstruction and without gangrene (Primary Dx); Left inguinal hernia Start: 11-21-2023 End: 11-21-2023 Emergency department patient visit MD Sherin House Work Phone: [facility] Work Phone: Start: 02-20-2023 End: 02-21-2023 ambulatory Miguelina R NILL Facility: [place] Start: 02-20-2023 End: 02-20-2023 Patient encounter procedure Miguelina R NILL [facility] Start: 01-28-2023 End: 01-29-2023 ambulatory Miguelina R NILL Facility: [place] Start: 01-28-2023 End: 01-28-2023 Patient encounter procedure Miguelina R NILL [facility] [place] Start: 01-14-2023 End: 01-15-2023 ambulatory Miguelina R NILL Facility: [facility] Start: 01-13-2023 ambulatory Miguelina R NILL Facility :CD:[id number] Start: 01-07-2023 End: 01-08-2023 ambulatory Miguelina R NILL Facility:CD:[id number] Start: 12-23-2022 End: 12-24-2022 ambulatory Miguelina R NILL Facility: [facility] Start: 12-23-2022 End: 12-23-2022 Patient encounter procedure Miguelina R NILL General [facility] [place] Start: 12-16-2022 End: 12-17-2022 ambulatory Miguelina R NILL Facility: [place] Start: 12-11-2022 End: 12-12-2022 ambulatory Miguelina R NILL [facility] Start: 12-11-2022 End: 12-11-2022 Lab Drop off Miguelina R NILL [facility] Start: 12-11-2022 End: 12-11-2022 Patient encounter procedure Miguelina R NILL [facility] [place] Start: 11-14-2022 End: 11-15-2022 ambulatory Miguelina R NILL Facility:[facility] Start: 11-11-2022 End: 11-12-2022 ambulatory Miguelina R NILL Facility:[facility] Start: 09-17-[address] SHERIN HOUSE . Facili ty:[facility] Start: 09-02-2022 End: 09-03-[address] SHERIN HOUSE . Facility:[facility] Start: 08-06-2022 End: 08-07-2022 ambulatory Miguelina R NILL Facility:[facility] Start: 08-06-2022 End: 08-06-2022 Patient encounter procedure Miguelina R NILL General Surgery [facility] Start: 07-15-2022 ambulatory Miguelina R NILL Facility :[facility] Start: 07-09-2022 End: 07-10-[address] SHERIN HOUSE . Facility:[facility] Start: 07-03-2022 End: 07-04-[address] SHERIN HOUSE . Facility:[facility] Start: 05-15-2022 End: 05-15-[address] SHERIN HOUSE . Facility:[facility] Start: 04-05-2022 Encounter for preprocedural laboratory examination DR JUSTINO DIAS . [facility] Start: 04-03-2022 End: 04-03-[address] SHERIN [...] 02-19-2021 End: 02-19-2021 ambulatory Guille Abrams Other [employer] Other Start: 02-19-2021 Office outpatient ne w 30 minutes Guille Abrams [facility] Start: 02-19-2021 Telephone encounter Guille Abrams [facility] G[facility] Procedures Date Procedure Procedure Detail Performing Clinician Start: 10-03-2024 ALL CBC WITH AUTO DIFF Serg D Rianna DPM [facility]AC[facility]AS Work Phone: Start: 10-03-2024 ECG [...] Ct abdomen & pelvis w/contrast material Favio Quita DO Work Phone: Start: 11-21-2023 Comprehensive metabolic panel Favio Co ots DO Work Phone: Start: 11-07-2014 Microscopic observation [Identifier] in Cervix by Cyto stain Saul Patterson MD Appendectomy Miguelina ROQUE section Miguelina KIRKLAND L Cholecystectomy Miguelina NILL Colonoscopy Miguelina NILL Esophagogastroduodenoscopy Kulwant ROQUE Excision of cyst of ovary Mi alexandre ROQUE History of repair of inguinal hernia S/P left inguinal hernia repair Darrick Benitez MD Work Phone: Laparoscopy Miguelina ROQUE Transcervical sterilization Miguelina ROQUE Plan of Treatment Date Care Activity Detail Author Start: 12-19-2024 Influenza vaccination N [facility] Start: 11-16-2024 End: 11-16-2024 Patient encounter procedure 11/16/2024 4:10 PM EDT Office Visit [facility] [address] [place] [address] Serg Mata, DPM FACFAS [address] [place] [address] [facility] Start: 11-07-2024 End: 11-07-2024 MR Foot - right WO contrast MR foot right wo IV contrast Imaging Routine Solitary bone cyst of right foot Expected: 11/07/2024, Expires: 11/07/2024 [facility] Work Phone: Comment on above: Expected: 11/07/2024 , Expires: 11/07/2024 Start: 10-26-2024 End: 10-26-2024 Patient encounter procedure [facility] Comment on above: Arrived Start: 10-19-2024 End: 10-19-2024 Patient encounter procedure 10/19/2024 4:10 PM EDT [facility] [address] [facility] [place] [address] Serg Mata, DPM FAC[facility]AS [address] [place] [address] Arrived [facility] Comment on above: Arrived Start: 10-18-2024 End: 10-18-[address] [facility] Start: 10-05-2024 End: 10-05-2024 Patient encounter procedure 10/05/2024 4:00 PM EDT Office Visit [facility] [address] [place] [phone] Serg Mata, DPM [facility]AS [address] [place] [address] [facility] Start: 09-14-2024 End: 09-14-2024 Patient encounter procedure 09/14/2024 4:20 PM EDT Office Visit [facility] [address] [place] [phone] Serg Mata, DPM [facility] [address] [place] [address] Arrived [facility] Comment on above: Arrived Start: 09-06-2024 End: 09-06-2024 Patient encounter procedure 09/06/2024 3:30 PM EDT Office Visit [facility] [address] [place] [phone] Yared Terrazas DPM [address] [address] Sprain of anterior talofibular ligament of right [...] EDT Office Visit [facility] [address] [place] [phone] Yared Terrazas DPM [address] [address] Sprain of anterior talofibular ligament of right [...] EDT Office Visit [facility] [address] [place] [phone] Yared Terrazas DPM [address] [address] Arrived [facility] Comment on above: Arrived Start: 12-29-2023 End: 12-29-2023 Patient encounter procedure 12/29/2023 12:45 PM EDT Office Visit [facility] General Surgery [address] [place] [address] Post Op/ OPEN UMBILICAL HERNIA REPAIR, OPEN LEFT INGUINAL HERNIA REPAIR, MESH 12/03/2023 [facility] General Surgery Comment on above: Post Op/ OPEN UMBILI TAHMINA HERNIA REPAIR, OPEN LEFT INGUINAL HERNIA REPAIR, MESH 12/03/2023 Start: 12-17-2023 End: 12-17-2023 Admission to same day surgery center 12/17/2023 7:30 AM EDT - 12/17/2023 9:10 AM EDT Surgery [facility] [address] [place] [address] Darrick Benitez MD [address] [place] [address] OPEN UMBILICAL HERNIA REPAIR, OPEN LEFT INGUINAL HERNIA REPAIR, MESH [facility] Comment on above: OPEN UMBILICAL HERNI A REPAIR, OPEN LEFT INGUINAL HERNIA REPAIR, MESH Start: 12-17-2023 End: 12-17-2023 Rpr 1st ingun hrna age 4 yrs/> [facility] Start: 12-17-2023 Subsequent hospital visit by physician 12/17/2023 7:30 AM EDT Hospital Encounter [facility] [address] [place] [address] Darrick Benietz MD [address] [facility] [address] [place] [address] [facility] Start: 12-15-2023 End: 12-15-2023 Patient encounter procedure 12/15/2023 12:45 PM EDT Office Visit [facility] General Surgery [address] [place] [address] [address] [place] [address] Post Op/ OPEN UMBILICAL HERNIA REPAIR, OPEN LEFT INGUINAL HERNIA REPAIR, MESH 12/03/2023 [facility] General Surgery Comment on above: Post Op/ OPEN UMBILI TAHMINA HERNIA REPAIR, OPEN LEFT INGUINAL HERNIA REPAIR, MESH 12/03/2023 Start: 11-19-2023 Influenza vaccination Flu vaccine (# 1) [facility] Start: 02-23-2023 DTaP/Tdap/Td vaccine (2 - Td or Tdap) DTaP/Tdap/Td vaccine (2 - Td or Tdap) [facility] Start: 12-19-2022 COVID-19 Vaccine ( season) COVID-19 Vaccine ( season) [facility] Start: 11-07-2017 Screening for malignant neoplasm of cervix [facility] Start: 2014 Screening for malignant neoplasm of cervix [facility] Start: 12-15-2003 Hepatitis B vaccine (1 of 3 - 19+ 3-dose series) Hepatitis B vaccine (1 of 3 - 19+ 3-dose series) [facility] Start: 2002 Hepatitis C screening Hepatitis C sc reen [facility] Start: 12-15-1999 HIV screening HIV screen [facility] Start: 1997 Varicella vaccine (1 of 2 - 13+ 2-dose series) Varicella vaccine (1 of 2 - 13+ 2-dose series) [facility] Start: 1996 Depression Monitoring Depression Mon itoring [facility] Start: 1985 Varicella vaccine (1 of 2 - 2-dose childhood series) Varicella vaccine (1 of 2 - 2-dose childhood series) [facility] Start: 06-16-1985 COVID-19 Vaccine (#1) COVID-19 Vacci ne (#1) [facility] Start: 1984 Hepatitis B vaccine (1 of 3 - 3-dose series) Hepatitis B vaccine (1 of 3 - 3-dose series) [facility] End: 12-17-2023 INITIATE PACU OXYGEN THERAPY PROTOCOL Initiate PACU Oxygen Therapy Protocol Respiratory Care Routine Continuous until discontinued starting 12/17/2023 [facility] Work Phone: Comment on above: Continuous until dis continued starting 12/17/2023 Immunizations Immunization Date Immunization Notes Care Provider Fa cility 09-13-2020 SARS-CoV-2 (COVID-19 ) mRNA-1273 vaccine Miguelina ROQUE [facility] [place] 08-16-2020 SARS-CoV-2 (COVID-19 ) mRNA-1273 vaccine Miguelina ROQUE [facility] [place] 04-20-2020 SARS-CoV-2 (COVID-19 ) mRNA-1273 vaccine Miguelina ROQUE [facility] Comment on above: Result Comment: pt h as had 2 shots 02-03-2020 influenza virus vaccine, unspecified formulation Yared Terrazas DPM Work Phone: [facility] NEGATED: Highlighted row has not occurred!08-06-2022 influenza virus vaccine, unspecified formulation Miguelina ROQUE [facility] [place] Payers Date Payer Category Payer Private Health Insurance [id number] 2024 Unknown [id number] 2023 Unknown [id number] 2023 Self-pay 1984 Unknown [id number] 2.16.84 0.1.841793.3.579.2.593 1984 Unknown [id number] 2.16.84 0.1.350148.3.579.2.593 1984 Unknown [id number] 2.16.84 0.1.235127.3.579.2.593 1984 Unknown [id number] 2.16.84 0.1.876202.3.579.2.593 1984 Unknown [id number] 2.16.84 0.1.568510.3.579.2.593 1984 Unknown [id number] 2.16.84 0.1.572162.3.579.2.593 1984 Unknown [id number] 2.16.84 0.1.395943.3.579.2.593 1984 Unknown [id number] 2.16.84 0.1.942794.3.579.2.593 1984 Unknown [id number] 2.16.84 0.1.443720.3.579.2.593 1984 Unknown [id number] 2.16.84 0.1.561743.3.579.2.593 1984 Unknown [id number] 2.16.84 0.1.067851.3.579.2.593 1984 Unknown [id number] 2.16.8 40.1.563037.3.579.2.727 1984 Unknown [id number] 2.16.8 40.1.290729.3.579.2.727 1984 Unknown [id number] 2.16.8 40.1.850499.3.579.2.727 1984 Unknown [id number] 2.16.8 40.1.316293.3.579.2.727 1984 Unknown [id number] 2.16.8 40.1.876154.3.579.2.727 1984 Unknown [id number] 2.16.8 40.1.659491.3.579.2.727 1984 Unknown [id number] 2.16.8 40.1.366415.3.579.2.727 1984 Unknown [id number] 2.16.8 40.1.126207.3.579.2.727 1984 Unknown [id number] 2.16.8 40.1.616436.3.579.2.727 1984 Unknown [id number] 2.16.8 40.1.902081.3.579.2.727 1984 Unknown [id number] 2.16.8 40.1.613096.3.579.2.727 1984 Unknown [id number] 2.16.8 40.1.870603.3.579.2.727 1984 Unknown [id number] 2.16. 840.1.601219.3.579.2.175 1984 Unknown [id number] 2.16. 840.1.722143.3.579.2.175 1984 Unknown [id number] 2.16. 840.1.969794.3.579.2.175 1984 Unknown [id number] 2.16.8 40.1.365119.3.579.2.718 1984 Unknown [id number] 2.16.8 40.1.094796.3.579.2.718 1984 Unknown [id number] 2.16.8 40.1.568826.3.579.2.1259 1984 Unknown [id number] 2.16.8 40.1.170858.3.579.2.1259 1984 Unknown [id number] 2.16.8 40.1.151546.3.579.2.1259 1984 Unknown [id number] 2.16.84 0.1.734971.3.579.2.9 1984 Unknown [id number] 2.16.84 0.1.009451.3.579.2.1258 1984 Unknown [id number] 2.16.84 0.1.887409.3.579.2.9 1984 Unknown [id number] 2.16.84 0.1.387160.3.579.2.1258 1984 Unknown [id number] 2.16.84 0.1.148213.3.579.2.1258 1984 Unknown [id number] 2.16.84 0.1.513005.3.579.2.1258 1984 Unknown [id number] 2.16.84 0.1.983675.3.579.2.1259 1959 Unknown [id number] 2. 16.840.1.866567.19 1959 Unknown [id number] Unknown [id number] 2.16.8 40.1.703366.3.579.2.531 Social History Date Type Detail Facility Unknown if ever smoked [employer] Other Start: 01-05-2016 End: 10-26-2024 Sex Assigned At [facility] Start: 08-06-2022 End: 12-16-2023 Tobacco smoking status Ex-smoker (finding) [facility] [place] Tobacco smoking status Smokeless tobacco user within last 30 days [facility] [place] Start: 11-21-2023 Tobacco smoking status NHIS Smoker (finding) [facility] Start: 1985 Sex Assigned At Female [facility] History of tobacco use Cigarette Smoker [facility] Start: 08-17-2014 End: 08-08-2024 Tobacco use and exposure Smokeless tobacco non-user [facility] Start: 12-28-2014 End: 12-17-2023 Alcohol intake Current drinker of alcohol (finding) [facility] Start: 01-05-2016 End: 10-26-2024 History of Social function [facility] Start: 08-17-2014 End: 11-26-2023 Tobacco Comment quit 3 months ago [facility] Start: 01-20-2013 Alcohol Comment rarely [employer] Start: 1985 Sex Assigned At Not on file [facility] How often to you have a drink containing alcohol? Never [facility] Tobacco smoking status AKIS Tobacco smoking consumption unknown [facility] Start: 08-08-2024 Tobacco smoking status NHIS Smokes tobacco daily [facility] Start: 08-08-2024 End: 10-26-2024 Alcoholic beverage intake Ex-drinker (finding) [facility] NEGATED: Highlighted row [facility] Medical Equipment Procedure Code Equipment Code Equipment Origin al Text Equipment Identifier Dates [id number] FDA Start: 12-17-2023 Functional Status Date Assessment Result Facility 12-11-2022 Functional Status N/A [facility] [place] 08-06-2022 Functional Status N/A [facility] [place] Clinical Notes 02-19-2021 to 10-26-2024 RAJEEV Bazzi - 10/26/2024 4:00 PM EDTMRAJEEV FerreiraFAS - 10/19/2024 4:10 PM EDTTelephone Encounter - RAJEEV Bazzi - 10/12/2024 10:55 PM EDTDischarge Instructions Note Date & Type Note Facility 10-26-2024 History of Present illness Narrative Images from the original note were not included. Patient: Tiara Parikh : 1985 PCP: Sherin House MD SUBJECTIVE This is a 38 y.o. female that presents today The patient is here status post ankle arthroscopy right procedure. Postop week 2 They deny fevers, chills, nausea, vomiting, calf pain and shortness of breath. Pain level is being managed with ice elevation and pain medication. They have been relatively compliant with her postoperative care. Allergies: No Known Allergies Past Medical History: Active Ambulatory Problems Diagnosis Date Noted No Active Ambulatory Problems Resolved Ambulatory Problems Diagnosis Date Noted No Resolved Ambulatory Problems Past Medical History: Diagnosis Date Difficulty walking 3-30-25 Hepatitis Plantar fasciitis Substance abuse ([facility]) Medications: Current Outpatient Medications: Abilify 30 MG tablet, , Disp: , Rfl: methylPREDNISolone (Medrol Dospak) 4 MG tablets, Follow schedule on MEDROL PACK package instructions to be used as directed, Disp: 21 tablet, Rfl: 0 Mobic 15 MG tablet, , Disp: , Rfl: Review of systems: Constitutional: Denies fever, chills, nausea, vomiting GI: Denies abdominal pain, cramping, loose stool, gastric ulcers Musculoskeletal: Denies low back pain, knee pain, systemic arthritis Neurologic: Denies burning, tingling, transient paralysis OBJECTIVE Physical Examination: DERM: Positive hair growth to b/l feet with good skin turgor noted. Negative openings in skin VASC: DP /PT were palpable bilateral. Capillary refill time < 3 seconds Digits 1-5 bilateral NEURO: [place] Deja 5.07 monofilament was intact B/L. Vibratory sensation was intact B/L Musculoskeletal: Muscle strength was +5 over 5 all intrinsic and extrinsic muscles tested. Negative Homans test noted Surgical site evaluation: The incision site is healing well without signs infection. Minimal swelling noted. Consistent with the patient's level of surgery consistent with time frame postoperatively. Sutures remain intact without signs of dehiscence. ASSESSMENT 1. Other synovitis and tenosynovitis, right ankle and foot PLAN He was he was removed today she is to continue with a pneumatic walking boot she may return to work with the use of the boot and follow up with me in 2 weeks for reassessment she may begin showering she is doing very well continue with oaack-dv-xihsex exercises RAJEEV Bazzi documented in this encounter [facility] 10-19-2024 History of Present illness Narrative Images from the original note were not included. Patient: Tiara Parikh : 1985 PCP: Sherin House MD SUBJECTIVE This is a 38 y.o. female that presents today The patient is here status post ankle arthroscopy right procedure. Postop week 1. They deny fevers, chills, nausea, vomiting, calf pain and shortness of breath. Pain level is being managed with ice elevation and pain medication. They have been relatively compliant with her postoperative care. Allergies: No Known Allergies Past Medical History: Active Ambulatory Problems Diagnosis Date Noted No Active Ambulatory Problems Resolved Ambulatory Problems Diagnosis Date Noted No Resolved Ambulatory Problems Past Medical History: Diagnosis Date Difficulty walking 07-17-24 Hepatitis Plantar fasciitis Substance abuse ([facility]) Medications: Current Outpatient Medications: Abilify 30 MG tablet, , Disp: , Rfl: methylPREDNISolone (Medrol Dospak) 4 MG tablets, Follow schedule on MEDROL PACK package instructions to be used as directed, Disp: 21 tablet, Rfl: 0 Mobic 15 MG tablet, , Disp: , Rfl: Review of systems: Constitutional: Denies fever, chills, nausea, vomiting GI: Denies abdominal pain, cramping, loose stool, gastric ulcers Musculoskeletal: Denies low back pain, knee pain, systemic arthritis Neurologic: Denies burning, tingling, transient paralysis OBJECTIVE Physical Examination: DERM: Positive hair growth to b/l feet with good skin turgor noted. Negative openings in skin VASC: DP /PT were palpable bilateral. Capillary refill time < 3 seconds Digits 1-5 bilateral NEURO: [place] Deja 5.07 monofilament was intact B/L. Vibratory sensation was intact B/L Musculoskeletal: Muscle strength was +5 over 5 all intrinsic and extrinsic muscles tested. Negative Homans test noted Surgical site evaluation: The incision site is healing well without signs infection. Minimal swelling noted. Consistent with the patient's level of surgery consistent with time frame postoperatively. Sutures remain intact without signs of dehiscence. Radiographs: AP/MO/LAT: Diagnostic ultrasound: ASSESSMENT 1. Other synovitis and tenosynovitis, right ankle and foot 2. Contracture of right ankle PLAN Today we applied a dry sterile dressing with betadine to the incision site. Covered the incision with 4x4s, Kerlix and Kalen bandage. The Patient is to continue ice and elevation on a regular basis. They were reminded to remain compliant with her weight-bearing status in the ambulatory surgical device. Recommended the patient begin weight-bearing in a pneumatic walking boot which was dispensed to her today. Sutures will be removed next week. Pneumatic Walking Boot ([id number]) was dispensed and applied at this visit. Due to the patient's diagnosis and related symptoms this is medically necessary for treatment. The function of this device is to restrict and limit motion, provide stabilization, immobilization, and compression to the affected area. The goals and function-of this device were explained in detail to the patient. The patient was shown and told in detail how to properly wear and care for the device. Written instructions and warranty information was given along with the list of the current Durable Medical Equipment Supplier Guidelines. RAJEEV Bazzi documented in this encounter [facility] 10-12-2024 Telephone encounter Note The prescription has been sent to the pharmacy. Thank you. [facility] 10-12-2024 Miscellaneous Notes The prescription has been sent to the pharmacy. Thank you. documented in this encounter [facility] 10-05-2024 History of Present illness Narrative Patient: Tiara [...] lesion. ELECTRONICALLY SIGNED BY: Zia Alexander DO The patient is here to discuss their upcoming surgery. Planned procedure I diagnostic/therapeutic ankle arthroscopy right. The patient has exhausted conservative care and wishes for surgical intervention. They have attempted numerous conservative options including: Shoe gear modifications, anti-inflammatory medications both steroid all and nonsteroidal, orthotic devices, cortisone injections, immobilization, physical therapy to no avail. They are here to sign consent forms and to address any other questions that may exist. Allergies: No Known Allergies Past Medical History: Past Medical History: Diagnosis Date Difficulty walking 07-17-24 Hepatitis Plantar fasciitis Substance abuse ([facility]) Medications: Current Outpatient Medications: Abilify 30 MG [...] swelling circumferentially around the ankle ASSESSMENT 1. Osteochondritis dissecans of right ankle 2. Other synovitis and tenosynovitis, right ankle and [...] procedure. RAJEEV Bazzi documented in this encounter [facility] 09-15-2024 Note Education Materials Infectious Disease Incision and Drainage, Care After After incision and drainage, it is common to have: ? Pain or discomfort around the incision site. ? Blood, fluid, or pus (drainage) from the incision. ? Redness and firm skin around the incision site. Follow these instructions at home: Medicines ? Take rbpz-dmw-vflnkzr and prescription medicines only as told by [...] and water are not available, use hand clearance rep. ? Change your dressing and any packing [...] provider. Document Revised: 11/24/2022 Document Reviewed: 11/24/2022 [employer] Patient Education ? [facility] Tele[facility] encounter Note Phone #: [phone] Insurance: Payor: [employer] / Plan: [employer] [facility] [employer] / Product Type: *No Product type* / Preferred Date/Time: First Available [x] ADRIANNA [] Patient Name: Tiara Parikh : 1985 Surgeon: Dr. Serg Mata [x] Dr. Richard Mata [] Location: [facility] [x] [facility] [] [facility] [] Procedure(s): ankle arthroscopy [id number] CPT Code(s): 15833 Diagnosis: No diagnosis found. Procedure Time: 30 [...] Clearance: Cardiology [] Rheumatology [] Other [] [facility] Healthcare Work Phone: 09-14-2024 Miscellaneous Notes Phone #: [phone] Insurance: Payor: [place] / Plan: [employer] [facility] [employer] / Product Type: *No Product type* / Preferred Date/Time: First Available [x] ADRIANNA [] Patient Name: Tiara Parikh : 1985 Surgeon: Dr. Serg Mata [x] Dr. Richard Mata [] Location: [facility] [x] [facility] [] [facility] [] Procedure(s): ankle arthroscopy [id number] CPT Code(s): 31495 Diagnosis: No diagnosis found. Procedure Time: 30 [...] [] Other [] documented in this encounter [facility] 09-14-2024 History of Present illness Narrative Patient: [...] Past Medical History: Diagnosis Date Difficulty walking 330-25 Hepatitis Plantar fasciitis Substance abuse Medications: Current [...] procedure. RAJEEV Bazzi documented in this encounter [facility] 09-06-2024 History of Present illness Narrative Patient: Tiara Parikh : 1985 PCP: Sherin House MD SUBJECTIVE This is a 38 y.o. female that presents today for history of right ankle sprain. She had been wearing a walking boot and taking oral steroid with some improvement. Patient rates pain a 7/10 Patient also presents today for MRI follow-up [...] Continue with cam walker Referral to Dr. Mata for possible surgical consultation Yared Terrazas DPM documented in this encounter [facility] 08-29-2024 History of Present illness Narrative Patient: Tiara Parikh : 1985 PCP: Sherin House MD SUBJECTIVE This is a 38 y.o. female that presents today for history of right ankle sprain. She had been wearing a walking boot and taking oral steroid with some improvement. Patient rates pain a 7/10 Patient also presents today for MRI follow-up of right cyst to the navicular of unknown significance. MRI tonight at [facility] hospital therefore sent to [facility] Allergies: No Known Allergies Past Medical History: Past Medical History: Diagnosis Date Difficulty walking 330-25 Hepatitis Plantar fasciitis Substance abuse Medications: Current [...] Yared Terrazas DPM documented in this encounter [facility] 08-08-2024 History of Present illness Narrative Patient: [...] Medical History: Diagnosis Date Difficulty walking 07-17-24 Plantar fasciitis Substance abuse Medications: No current [...] Yared Terrazas DPM documented in this encounter [facility] 07-17-2024 Note Education Materials Orthopedics Foot Sprain [...] on your foot. General instructions ? Take bqgs-sqe-tyfohew and prescription medicines only as told by your health care provider. ? When you can walk without pain, w (more content not included)... [facility] 12-17-2023 Hospital Discharge instructions Johnathon Booth [...] your doctor documented in this encounter [facility] 12-03-2023 History of Present illness Narrative Patient very upset. Did not wait for indefinite amount of time for surgery time.Lead RN notified and during notification of customer care team coach, patient removed own iv and stormed out of unit cussing. documented in this encounter [facility] 12-03-2023 Hospital Discharge instructions Emma Smith MD [...] at 8pm, etc.). If prescribed narcotic medications (Cromwell, Percocet, or Roxicodone), use for breakthrough pain and attempt to wean off medications as soon as possible. Do not take more than 4000mg tylenol in 24 hours. SPECIAL INSTRUCTION: Call the office at [phone] if you develop fevers, chills, uncontrolled nausea, vomiting. Monitor incisions for signs of redness or green discharge. Please follow-up in approximately 2 weeks after surgery for your postop evaluation. Office Address: [address] [place] [address] documented in this encounter [facility] 11-21-2023 Hospital Discharge instructions Favio Devlin DO [...] cannot be sent through Care Everywhere.Inguinal Hernia (Romansh)documented in this encounter [facility] 12-13-2022 Note Microbiology PROCEDURE: Wound Culture [R1] [...] susceptible interp, R*=Predicted resistant interp Entfaeca Antibiotic CHARANIJT Dilutn CHARANJIT Interp Ampicillin <=2 S Daptomycin <=1 S Erythromycin >4 R Linezolid <=2 S Penicillin 2 S Rifampin <=1 S Vancomycin 2 S Performing Locations R1: This test was performed at: [facility], [address] [place] [address], [id number] , [place], [facility] Comment on above: Performed By: #### 2 [id number] ####[facility] [id number] [place] [address] 12-11-2022 Note Chief Complaint consultation for recurrent breast abscess HPI Staff Presents with complaint of recurrent breast abscess. Reports she developed redness and pain on Thursday. She presented to [facility] ED Thursday and was given [...] Patient Refuses DALIA (more content not included)... [facility] Comment on above: Result Comment: [...] authenticated by: DARRICK GIBBS Date: 2022-09-02 10:54 [facility] 08-06-2022 Note Chief Complaint consultation for left inguinal hernia HPI Staff 36 year old female presents on consultation from Dr. House for enlarging left inguinal bulge. Reports she noted bulge February/March 2022. States this has gradually increased in [...] Crohn's disease Depression (more content not included)... [facility] Comment on above: Result Comment: Elec tronically Signed By: MYA TEMPLE, Migueilna Solis\Date and Time Signed: 08/06/22 21:16 EDT 04-03-2022 Note OPERATIVE NOTE OPERATION DATE: 04/03/2022 PROCEDURE: Diagnostic laparoscopy with left ovarian cystotomy. PREOPERATIVE DIAGNOSIS: Pelvic pain. POSTOPERATIVE DIAGNOSIS: Pelvic pain. ANESTHESIA: General. SURGEON: Justino Dias D.O. ANIMAL ASSISTED THERAPIST: SAMMY Phillips URINE OUTPUT: Yellow and clear. BLOOD LOSS: [...] Recovery Room in stable condition. ? [facility] 02-19-2021 Evaluation note Encounter Date Diagnosis Assessment [...] TESTING Q 4 WEEKS WHILE ON THERAPY [employer] Other 11-02-2021 Evaluation note* Encounter Date Diagnosis Assessment Notes Treatment Notes Treatment Clinical Notes Feb, Hepatitis C (ICD-10 - B19.20) Company [facility] [employer] Other Evaluation + Plan note No data available for this section General Surgery [place] Evaluation + Plan note Future Appointments Appointment Date:12/16/2022 04:00:00 PM Scheduled Provider:Miguelina ROQUE MD Location:[facility] Appointment Type:GS Established 15 [facility] General Surgery [place] Evaluation + Plan note Future Appointments Appointment Date:12/16/2022 04:00:00 PM Scheduled Provider:Miguelina ROQUE MD Location:[facility] Appointment Type: Established 15 Diagnostic Tests Pending * Wound Culture [facility] Future Appointments Appointment Date:02/04/2023 01:00:00 PM Scheduled Provider:Miguelina ROQUE MD Location:[facility] Appointment Type: Post Op 15 General Surgery [place] evalurvvdh noteNo assessment information available [facility] Work Phone: evaluation note* Diagnosis Umbilical hernia without obstruction and without gangrene- Primary Left inguinal hernia Inguinal hernia without mention of obstruction or gangrene, unilateral or unspecified, (not specified as recurrent) documented in this encounter [facility] note* Diagnosis H/O umbilical hernia repair- Primary Personal history of surgery to other organs H/O umbilical hernia repair Personal history of surgery to other organs S/P left inguinal hernia repair Other postprocedural status documented in this [facility] Diagnosis Sprain of anterior talofibular ligament of right ankle, initial encounter- Primary 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 documented in this encounter [facility]* Diagnosis Sprain of anterior talofibular ligament of right ankle, initial encounter- Primary 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 documented in this encounter [facility]* Diagnosis Sprain of anterior talofibular ligament of right ankle, initial encounter- Primary Contracture of right ankle 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 [facility]* Diagnosis Osteochondritis dissecans of right ankle- Primary Solitary bone cyst of right foot Other synovitis and tenosynovitis, right ankle and foot documented in this encounter [facility] note* Diagnosis Osteochondritis dissecans of right ankle- Primary Other synovitis and tenosynovitis, right ankle and foot documented in this encounter [facility]* Diagnosis Other synovitis and tenosynovitis, right ankle and foot- Primary documented in this encounter [facility]* Diagnosis Other synovitis and tenosynovitis, right ankle and foot- Primary Contracture of right ankle documented in this encounter [facility]* Diagnosis Other synovitis and tenosynovitis, right ankle and foot- Primary [facility] general [...] History EGD 2009 Hospitalization History See Above [employer] Other Hospital Discharge instructions No data available for this section General Surgery [email or web address] Progress note No data available for this section General Surgery [place] Summary Purpose Family History No Family History Records Found Relationship Condition Age at Onset Recorded Date/T boy Not Specified No pertinent family history Unknown father Unknown Advance Directives No Advanced Directives Records Found Advance Directive Response Recorded Date/ Time Advance [...] Pain Specialty Diagnoses / Procedures Referred By Shala keyes Referred To Contact Diagnoses Umbilical hernia without obstruction and without gangrene Inguinal hernia of left side without obstruction or gangrene Umbilical hernia without obstruction and without gangrene [K42.9] Inguinal hernia of left side without obstruction or gangrene [K40.90] Procedures MN RPR 1ST INGUN HRNA AGE 5 YRS/> REDUCIBLE MN RPR AA HERNIA RECR < 3 CM NCRC8/STRANGULATED OPEN UMBILICAL HERNIA REPAIR, OPEN LEFT INGUINAL HERNIA REPAIR, MESH Darrick Benitez MD [facility] [address] [address] [facility] [address] [place] [address] Referral ID Status Reason Start Date Expiration Date Visits Re quested Visits Authorized [id number] 1 1 Specialty Diagnoses / Procedures Referred By Shala keyes Referred To Contact Diagnoses Umbilical hernia without obstruction and without gangrene Inguinal hernia without obstruction or gangrene, recurrence not specified, unspecified laterality Umbilical hernia without obstruction and without gangrene [K42.9] Inguinal hernia without obstruction or gangrene, recurrence not specified, unspecified laterality [K40.90] Procedures MN RPR 1ST INGUN HRNA AGE 5 YRS/> REDUCIBLE MN RPR AA HERNIA RECR < 3 CM NCRC8/STRANGULATED OPEN UMBILICAL HERNIA REPAIR, OPEN LEFT INGUINAL HERNIA REPAIR, MESH Darrick Benitez MD [address] [facility] [address] [place] [address] [facility] [address] [place] [address] Referral ID Status Reason Start Date Expiration Date Visits Re quested Visits Authorized [id number] 1 1 Reason Comments Ankle Pain RT ANKLE Reason Comments Follow-up Reason Comments Follow-up Mri results Reason Comments Ankle Pain Discuss ankle instab ility surgery Reason Comments Consent Or Instructions Surgery consult for RT ankle Reason Comments Foot/ankle Post-op WK 1 post op Reason Comments Foot/ankle Post-op Week 2 Post op Patient Care team informatio n (unrecognized section and content) Team Status: Active Member Role Status Dates Sherin House MD Primary Care Provider Active Team Status: Inactive Member Role Status Dates Sherin House MD Primary Care Provider Active Start: November 21, 2023 End: November 21, 2023 Walter Guillaume DO Emergency Provider Active St art: November 21, 2023 End: November 21, 2023 Brick Mason Relationship Specialty Start Date End Date Sherin House MD [address] [place] [address] PCP - General 01/06/13 Brick Mason Relationship Specialty Start Date End Date Sherin House MD [address] [place] [address] PCP - General 01/06/13 Brick Mason Relationship Specialty Start Date End Date Sherin House MD [address] [place] [address] PCP - General 01/06/13 Brick Mason Relationship Specialty Start Date End Date Unallocated, [place] [address] [place] [address] PCP - General Family Medicine 08/08/24 Brick Mason Relationship Specialty Start Date End Date Sherin House MD [address] [place] [address] PCP - General Family Medicine 08/08/24 Brick Mason Relationship Specialty Start Date End Date Sherin House MD [address] [place] [facility] [address] PCP - General Family Medicine 08/08/24 Brick Mason Relationship Specialty Start Date End Date Sherin House MD [address] [place] [facility] [address] PCP - General Family Medicine 08/08/24 Brick Mason Relationship Specialty Start Date End Date Sherin House MD [address] [place] [facility] [address] PCP - General Family Medicine 08/08/24 Brick Mason Relationship Specialty Start Date End Date Sherin House MD [address] [place] [facility] [address] PCP - General Family Medicine 08/08/24 Brick Mason Relationship Specialty Start Date End Date Sherin House MD [address] [place] [facility] [address] PCP - General Family Medicine 08/08/24 Brick Mason Relationship Specialty Start Date End Date Sherin House MD [address] [place] [facility] [address] PCP - General Family Medicine 08/08/24 Brick Mason Relationship Specialty Start Date End Date Sherin House MD [address] [place] [facility] [address] PCP - General Family Medicine 08/08/24 Brick Mason Relationship Specialty Start Date End Date Sherin House MD [address] [facility] [place] [address] PCP - General Family Medicine 08/08/24 INFORMATION SOURCE (unrecogn ized section and content) DATE CREATED AUTHOR 09/26/2022 [facility] DATE CREATED AUTHOR AUTHOR'S ORGANIZ ATION 02/22/2023 [facility] DATE CREATED AUTHOR AUTHOR'S ORGANIZ ATION 12/05/2023 [facility] DATE CREATED AUTHOR AUTHOR'S ORGANIZ ATION 12/31/2023 [facility] DATE CREATED AUTHOR AUTHOR'S ORGANIZ ATION 09/25/2024 [facility] DATE CREATED AUTHOR AUTHOR'S ORGANIZ ATION 10/30/2024 [facility] EPIC Goals (unrecognized section and content) Goals may [...] order., PACU only BUPivacaine-EPINEPHrine PF (MARCAINE-w/EPINEPHrine) 0.5% -[id number] injection (CANCELED) PRN, Starting on Amara 12/17/23 [...] Oral, ONCE PRN, 1 dose, Starting on Thu12/17/23 at 0944, Until Thu12/17/23 [...] % irrigation (CANCELED) CONTINUOUS PRN, Starting on Thu12/17/23 at 0746, Intra-op 0746 (New Bag - [...] BE BASED ON THE PRIMARY CLINICAL RECORDS. [employer] provides no warranty or guarantee of the accuracy or completeness of information in this document.
[2024-11-11 10:20] LABS: Hematocrit 37.3 % (36.0-48.0); Hemoglobin 12.6 g/dL (12.0-16.0); Immature Granulocytes Abs Auto 0.01 10^3/uL (0.00-0.03); Immature Granulocytes Pct Auto 0.1 % (0.0-0.5); Lymphocytes Absolute Auto 1.7 10^3/uL (1.2-3.8); Mean Corpuscular HGB Conc 33.8 g/dL (29.9-35.2); Mean Corpuscular Hemoglobin 30.3 pg (26.7-34.0); Mean Corpuscular Volume 89.7 fL (81.0-99.0); Platelet Count 210 10^3/uL (150-450); Red Blood Count 4.16 10^6/uL (4.20-5.40); White Blood Count 7.2 10^3/uL (4.0-11.0)
[2024-11-11 11:18] LABS: Alanine Aminotransferase 18 U/L (14-59); Albumin Globulin Ratio 1.0; Albumin Level 3.7 g/dL (3.4-5.0); Alkaline Phosphatase 49 U/L (46-116); Anion Gap 14.1; Aspartate Amino Transferase 12 U/L (15-37); Blood Urea Nitrogen 18.0 mg/dL (7.0-18.0); Calcium 8.9 mg/dL (8.5-10.1); Carbon Dioxide 24.2 mmol/L (21.0-32.0); Chloride 105 mmol/L (98-107); Estimated GFR (African America >60 (>=60 mL/min/1.73m^2); Estimated GFR (Non-African Ame >60 (>=60 mL/min/1.73m^2); Globulin 3.6 g/dL; Glucose 106 mg/dL (74-106); NT Pro B Type Natriuretic Pept 38.0 pg/mL (<=450.0); Potassium 4.3 mmol/L (3.5-5.1); Sodium 139 mmol/L (136-145); Total Protein 7.3 g/dL (6.4-8.2)
== END 2024-11-11 10:01 | disposition home or self-care (01) ==
LOC: LAB 10:01
PROVIDERS: PCP Family Medicine; Visit Provider Family Medicine
DX: R60.0 Localized edema (principal); I11.0 Hypertensive heart disease with heart failure; I50.30 Unspecified diastolic (congestive) heart failure
CPT/HCPCS: 36415; 80053; 83880; 85025

== ENCOUNTER 2024-11-30 12:36 | Outpatient (OUT) | payer OTHER, SELFPAY ==
--- OUTSIDE RECORDS SUMMARY | 2024-11-30 12:43 | XMS_ITS | CCD ---
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 Name Role Phone Guille Abrams Unavailable Barry House Primary Care Physician Krys Ramos Unavailable Unavailable HOY ., DR DUFF Primary Care Unavailable NABOR ., DR DAI Consulting Unavailable NABOR ., DR DAI Attending Unavailable NABOR ., DR DAI Admitting Unavailable HOY ., DR DUFF Primary Care Unavailable NABOR ., DR DAI Consulting Unavailable NABOR ., DR DAI Attending Unavailable NABOR ., DR DAI Admitting Unavailable GEMBUS, KIMBELRY Consulting Unavailable HOY ., DR DUFF Consulting Unavailable HOY ., DR DUFF Attending Unavailable HOY ., DR DUFF Admitting Unavailable HOY ., DR DUFF Primary Care Unavailable ZIEBER, DR DARRICK Swanson Consulting Unavailable HOY ., DR DUFF Primary Care Unavailable HOY ., DR DUFF Consulting Unavailable HOY ., DR DUFF Attending Unavailable HOY ., DR DUFF Admitting Unavailable Dumont, Amlcom Consulting Unavailable HOY ., DR DUFF Primary [...] Unavailable HOY ., DR DUFF Admitting Unavailable FRESNO, DR GUILLE Rojo Consulting Unavailable HOY ., DR DUFF Primary Care Unavailable NABOR ., DR DAI Consulting Unavailable NABOR ., DR DAI Attending Unavailable NABOR ., DR DAI Admitting Unavailable NILL, Miguelina Swanson Attending Unavailable Barry House Referring Unavailable NILL, Miguelina R Attending [...] Attending Unavailable NILL, Miguelina Swanson Attending Unavailable Barry House Referring Unavailable MD Barry House Primary Care Provider DO Walter Guillaume Emergency Provider Barry House Primary Care Unavailable Walter Guillaume Attending Unavailable Walter Guillaume Admitting Unavailable DARRICK BENITEZ Admitting Unavailable DARRICK BENITEZ Attending Unavailable BARRY HOUSE Primary Care Unavailable DARRICK BENITEZ Admitting Unavailable DARRICK BENITEZ Attending Unavailable BARRY HOUSE Primary Care Unavailable BARRY HOUSE Primary Care Unavailable MIGUELINA DOMINGUEZ Attending Unavailable DARRICK BENITEZ Consulting Unavailable Barry House MD Primary Care Provider [phone] Unallocated , [place] Provider [facility] Barry House MD Primary Care Provider [phone] Barry House MD Primary Care Provider [phone] BARRY HOUSE Primary Care Unavailable David Rayo Attending Unavailable David Rayo Admitting Unavailable BARRY HOUSE Primary Care Unavailable David Rayo Attending Unavailable YARED TERRAZAS Attending Unavailable YARED TERRAZAS Referring Unavailable YARED TERRAZAS Referring Unavailable YARED TERRAZAS Attending Unavailable YARED TERRAZAS Referring Unavailable YARED TERRAZAS Attending Unavailable DOLSERG ALMEIDA Attending Unavailable DOLCE, SERG Dempsey Attending Unavailable DOLCE, SERG Dempsey Attending Unavailable DOLCE, SERG Dempsey Attending Unavailable DOLELLE, SERG Dempsey Attending Unavailable Allergies Allergy Classification Reported Allergen(s) Allergy Type Date of Onset Reaction(s) Facility (2 sources) Acetaminophen Drug Allergy Unknown [facility] Other (12 sources) Amitriptyline; Translations: [Amitriptyline] Drug Allergy 11-07-19 13 Eruption of skin (disorder) [facility] (12 sources) Cephalexin; Translations: [cephalexin] Drug Allergy 10-06-19 18 Unknown, Rash [facility] (9 sources) Desvenlafaxine; Translations: [desvenlafaxine] Drug Allergy 11-21-19 24 rash, Eruption of skin (disorder) [facility] (13 sources) Erythromycin; Translations: [erythromycin] Drug Allergy 06-08-19 13 rash, Anaphylaxis (disorder) [facility] (3 sources) Ibuprofen Drug Allergy 11-21-19 24 vomiting [facility] (13 sources) NSAIDs; Translations: [Non-steroidal anti-inflammatory agent (substance)] Propensity to adverse reactions 09-07-19 13 Anaphylaxis (disorder) [facility] (6 sources) Propranolol Drug Allergy 09-07-19 13 rash [facility] (3 sources) Sulfacetamide Drug Allergy 11-21-19 24 Unknown, Unknown Reaction [facility] (10 sources) Sulfamethoxazole / Trimethoprim; Translations: [sulfamethoxazole-t rimethoprim] Drug Allergy 10-06-19 18 Unknown [facility] (9 sources) Morphine; Translations: [morphine] Drug Allergy 10-06-19 18 Unknown [facility] (9 sources) pregabalin; Translations: [pregabalin] Drug Allergy 10-07-19 18 Swelling [facility] (7 sources) topiramate; Translations: [topiramate] Drug Allergy Unknown (qualifier value) [facility] (1 source) Acetaminophen Drug Allergy [facility] (2 sources) Amitriptyline Drug Allergy 11-21-19 Unknown Reaction [facility] (2 sources) Cephalexin; Translations: [Keflex] Drug Allergy [facility] (4 sources) Desvenlafaxine; Translations: [Pristiq] Drug Allergy 11-07-19 13 [facility] (2 sources) Ketorolac; Translations: [Toradol] Drug Allergy [facility] (2 sources) NSAIDs Drug allergy (disorder) 11-07-19 13 [facility] (2 sources) pregabalin Drug Allergy 11-06-19 17 [facility] (2 sources) Sulfamethoxazole / Trimethoprim; Translations: [Bactrim] Drug Allergy [facility] (2 sources) E.E.S. Drug allergy (disorder) 11-07-19 13 [facility] (1 source) Sulfamethoxazole / Trimethoprim; Translations: [sulfamethoxazole-t rimethoprim] Drug Allergy 10-06-19 18 [facility] Rep[facility] (1 source) Tylenol Regular Strength; Translations: [Tylenol Regular Strength] Propensity to adverse reactions (disorder) [facility] Rep[facility] (2 sources) Doxycycline; Translations: [doxycycline] Drug Allergy 11-21-19 blisters [facility] (2 sources) Sulfamethoxazole; Translations: [sulfamethoxazole] Drug Allergy 11-21-19 [facility] (2 sources) Sulfonamides (Antibiotic); Translations: [Sulfa (Sulfonamide Antibiotics)] Allergy to substance 11-21-19 [facility] (2 sources) Trimethoprim; Translations: [trimethoprim] Drug Allergy 11-21-19 [facility] (2 sources) erythromycin base; Translations: [erythromycin base] Allergy to substance 11-21-19 Vomiting, rash [facility] (2 sources) NSAIDS (Non-Steroidal Anti-Inflamma; Translations: [NSAIDS (Non-Steroidal Anti-Inflamma] Allergy to substance 11-21-19 Anaphylaxis [facility] (1 source) Amitriptyline Drug Allergy 11-21-19 [facility] (1 source) Cephalexin Drug Allergy 11-21-19 [facility] (1 source) Desvenlafaxine Drug Allergy 11-21-19 [facility] (1 source) Ibuprofen Drug Allergy 11-21-19 [facility] (1 source) Propranolol Drug Allergy 11-21-19 [facility] (1 source) Sulfacetamide Drug Allergy 11-21-19 [facility] (3 sources) Amitriptyline Drug Allergy 09-07-19 13 [facility] (3 sources) Desvenlafaxine Drug Allergy 01-21-20 13 [facility] (2 sources) Ketorolac Drug Allergy 10-07-19 18 [facility] (1 source) Acetaminophen; Translations: [Tylenol] Drug Allergy [facility] Repository Medications Current Medications Medication Drug [...] day(s), # 28 cap(s), Refills(s) 1, [id number] 167, cm, 12/11/22 14:03:00 EDT, Height/Length Dosing, [...] Daily, # 30 tab(s), Refills(s) 11, Pharmacy: [address], 170, cm, 05/27/21 12:27:00 EST, Height/Length [...] q8hr, # 6 tab(s), Refills(s) 0, Pharmacy: [facility]/pharmacy #[id number] Start Date: 11/12/16 Status: Ordered Completed/Discontinued Medications [...] UNSPECIFIED] Onset: 02-01-2022 Chronic Other acquired deformities (10 sources) Contracture of joint of right ankle; [...] Onset: 09-02-2022 Episodic Other connective tissue disease (12 sources) Synovitis and tenosynovitis; Translations: [Other synovitis [...] 05-16-2022 Episodic Other aftercare (1 source) Other exterminator helper termite (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) drug therapy; Translations: [OTH [facility] CURRENT DRUG THERAPY] Onset: 04-07-2022 Episodic Other [...] WITH AUTO DIFFon BASOPHILS ABSOLUTE AUTO 0 [facility] Basophils/100 WBC (Bld) 0.3 % 0.2 - 2.0 % [facility] Eosinophils/100 WBC (Bld) 2.1 % 0.9 - 7.0 % [facility] Erythrocyte distribution width (RBC) [Ratio] 11.9 % 11.0 - 15.0 % [facility] Hematocrit (Bld) [Volume fraction] 40 % 36.0 - 48.0 % [facility] Hemoglobin (Bld) [Mass/Vol] 13.5 g/dL 12.0 - 16.0 g/dL [facility] IMMATURE GRANULOCYTES ABS AUTO 0 [facility] Immature granulocytes/100 WBC (Bld) 0 % 0.0 - 0.5 % [facility] LYMPHOCYTES ABSOLUTE AUTO 1.5 [facility] Lymphocytes/100 WBC (Bld) 25 % 20.5 - 60.0 % [facility] MCH (RBC) [Entitic mass] 30.5 pg 26.7 - 34.0 pg [facility] MCHC (RBC) [Mass/Vol] 33.8 g/dL 29.9 - 35.2 g/dL [facility] MCV (RBC) [Entitic vol] 90.5 fL 81.0 - 99.0 fL [facility] MONOCYTES ABSOLUTE AUTO 0.3 [facility] Monocytes/100 WBC (Bld) 4.8 % 1.7 - 12.0 % [facility] NEUTROPHILS ABSOLUTE AUTO 4 [facility] Neutrophils/100 WBC (Bld) 67.8 % 43.0 - 75.0 % [facility] Platelet mean volume (Bld) [Entitic vol] 10.6 fL 9.5 - 13.5 fL [facility] TBH EO # 0.1 [facility] PLT 199 [facility] RBC 4.42 [facility] WBC 5.8 [facility] ECG 12-LEADon 10-03-2024 The [place] [id number] Electrocardiograph Report Signed Patient: TIARA PARIKH MR#: [id number] : 1985 Acct:[id number] Age/Sex: 38 / F ADM Date: 10/03/24 Loc: CARD Attending Dr: SERG MATA M.D. Ordering Physician: SERG MATA M.D. 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 Measurements Intervals [place] Rate: 77 P: 59 SD: 144 QRS: 72 QRSD: 102 T: 56 QT: 381 QTc: 431 Interpretive Statements SINUS RHYTHM Normal ECG Compared to ECG 10/14/2020 21:25:35 No significant changes Electronically Signed On 10-03-2024 13:22:02 EDT by ANJEL GILBERT M.D. Dictated By: ANJEL GILBERT Signed By: 10/03/24 1322 DD/ 1153 TD/TT: Newspaper Delivery Counselor: [facility] Radiology, Radiologist, - 10/03/[address] [address] Electrocardiograph Report Signed Patient: TIARA PARIKH MR#: [id number] : 1985 Acct:[id number] Age/Sex: 38 / F ADM Date: 10/03/24 Loc: CARD Attending Dr: SERG MATA M.D. Ordering Physician: SERG MATA M.D. 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 Measurements Intervals [place] Rate: 77 P: 59 SD: 144 QRS: 72 QRSD: 102 T: 56 QT: 381 QTc: 431 Interpretive Statements SINUS RHYTHM Normal ECG Compared to ECG 10/14/2020 21:25:35 No significant changes Electronically Signed On 10-03-2024 13:22:02 EDT by ANJEL GILBERT M.D. Dictated By: ANJEL GILBERT Signed By: 10/03/24 1322 DD/ 1153 TD/TT: Newspaper Delivery Counselor: [facility] Radiology Study observation (narrative) [facility] ECG 12-LEADOrdered By: Radio logist Radiology on 10-03-2024 [facility] [employer] Work Phone: Coding Summaryon 09-23-2024 Coding Summary HTMLBase 64 VgmgoezuSXh7gOg+PGhlYW Q+NR1ZNBUjN86ycFRaeX5z B4AYGDuAQccoIUOQIHpWNd DmlrJtVQ5kwDMeBYHc IC8+CN4wMQPbXxzzgCTpj8 U3xVQ0C22xhm9bTKitsXB7 HQRdUyRqgbeke6usfFe5QD cuNmluOyBt SQGcrK02EWY0hA45Th59kO BiyFXvc7nebFb2AqLhRIMx UAD2fNuuLChoj1GvFCOdE6 4wyYUlv2B4 WKFbeJdicOQuInAhoDA0wO 4kGItcktdyc7bumkywWla0 xa07qBZou7C7wIR1B8Zmvw Q9ILOoiUHy OagksTQOyB2tfrylm8xpvg lkCdCdQEIxQWb0OHp5ZKNd wMiePyVoKR19BTM8WRPxzy GuN2AcEMEv yNvmBcV8a4J1Um6TB1AKMq sxZ4SZHFNLCYaxpNV+PC90 tk35M8EgOetpJjr3HMMiYK O9jXE3vS4y DMZbOOpog3U4dEK3G2Sezk Clvl0oi5yfESIfQWmzI64q qRSms1E6OCIrtGA4CXGexD xzLkCipB99 Oyc+CDRcmIkkf2FeJbizv6 nht2wueZw2ApvoXYQkouVn uPunTGL7f6PwAf2kLVXcfK S5oIO7pC4e YnBqXoJ4UWadV386SaBctZ StQoglR82wD7TldWI+PHRy Xwb5MBKagVleSI1mK5TySA RpbmctbGVm sMbcIK1gVSQegskeFADyiZ 5rAIPiW0u7ArMrGdD5GByn T0WyQJTqefflJb91kA2xKi VcOiS1AUfm Z5MuffG2DABrxCKqMRzsXT K9T57it8I8OAXsYAAtSQG8 yBJ7rS1idCccgsbveNDwmA sgdmVydGlj WJyiALssA058EJGeeSscJk NvZGluZyBEYXRlOiAgMDYv MDYvMjAyNTwvdGQ+PHRkIH Q8eSesOJGu bKWgOXawUa7nmIhdgAjdZH 2lLPRysjxiKYBbpW5pSDTt iTMmaEpqCL4qDTPvjzjxx3 33LeWaOBK2 YHXfaEUcX4FiwT3aAqQmQW SnVHYeX7CxjEJrMMetN453 PLhgMhR4EDFqkaNeO3QfAF FsaWduOiB0 n8C3Pd2Ej0TzeadlS3AwqZ SuCnWmJcwrBMp0G5SjYkzq dHI+TH68EVIaCY28HQb4PU R0bKcsBKxd GKHrA9DepZ4jPwVyNNDtXH RkOyc+PHRhYmxlIHdpZHRo GKcbGZOlDcWvkOstIF1rWr 9yZGVyLWNv pFgloWSeSlFqz5szMUHmRZ suQU2evStoN1QyeZN0HOAj t0m8Ht15L96hV9VtgNW+PG OawZK8dUM6 rJ6zLjBzSfS5FNigC786Ft YjyRAmBlhoi1cuu5vbhLs3 HyK9MARlduXouBmpHEC5p5 FtTg83G52o IHdpZHRoPSIxNSUiIHZhbG sqrz5acX3nXk3+PGNvbCB3 yDB3nJ2gGnLcKcN0CQjeE8 49InRvcCIv Qeuib7fee1ldpYd0HsPmWX EjnrBncKkjVNB3u1ZbXr69 X1SkqPums4DqBbg5py03aZ Fqu9V5aTL3 A3AwDVLyazhthUFlpMiqCQ 5iSBTpallsPEBdtI6gTDOt H5s9UiGwHjO7OLsbS4Utrz V0RQXqaWMw MYXitXEQeT2schhxk9zvku ulZbRfNNEsQUk9XKr7XUFn pQduNvBrXUL5KtI1UUM5jN HdkY0qnOco bhqkvX0tHgd+QNQ3vUCdcE UCKO0mRmlraHY+PHRkIHN0 hUqsRBofNXVdwY1jIJIvT9 h1EcKmDtQ7 SFhlR2QajhS6TNXuyDViMR UqkVZZkJ9gylvvq1qdpmhf WdFrAEErSNe6KUg7XLDggS duOiBsZWZ0 RjZ8TQH7mBHtrC0esNywox iijI7bJgg+QmlydGggRGF0 GWq7E1AoYix1ECQrxBudFY 0ncGFkZGlu Uc5nqMbkaLhgOU8xDZWneq sqf602EyGvi8heHTHivVYa WOosBWI0E11uk2W4SHXpUE OsLBE7xEB7 dK6mnCvecusepRSrvZqhpa MiyYarESdaBWyoD328MGXy uYnrQhQbDKt5D1AlFpq9TY VigYciJN8d aAXdMDssKo3chMseqXvjYF 9lBXVcyfmkl872YdZwc3ol VXTbwOAdUWzmFVG4G43ik3 H1HIDcWRAh RXM9aGW8rZ5xxRbjbitwdM VmdDsgdmVydGljYWwtYWxp T654HYGdzVyjTrPexPc5D6 ShNfa9LRLx hMsrMD5inMRwESepGr8ilQ eysYlhTN7pSYSuovygn820 QiFim9syMEIttDPtTKnqBT A3B43be4X6 WFAiKFBmGJX3uLM2hM7wxH lnbjogbGVmdDsgdmVydGlj EMyvYHreP030UQEiyCiaHc BhdGllbnQg XXymUKg6O5ElVoyzjXT+PC 08MOWbOZ12sORtmBXxh2rw dFr6UaElNJQcPVB4cEbfNO pbx0InLSYd B61kjEMiu9Q9CPFysXfbkR VqAsZvfPE4iA9tIZdxshdh w9gjoeogRyyhh5pryw41eC 41D68pWEyu ZHRoPSIzMCUiIHZhbGlnbj 5spB2uGl9+RCEjpHA1sRS2 vC8kOVCvZdL3XKdlX218Bv RvcCIvPjxj e0nfr1sxwCd6BtD4JTUlct WgvXwcQCM8g5XsMt53W72v IHdpZHRoPSIyMCUiIHZhbG lyzu0syP4o Ii8+AVEbyKP6nDK5cD2rEv YpBkK4LPweV157ClUzuXFs AmrtS65uW4QgtKG+PHRyPj m6ZKIevYxw LY4roTXgNMfhEj0uRZF9Wy DlQuMwHHfjR8EuUTMvymls omcgqDC1UTRoWATzdW52Za 9udDogMTBw rBQNqE9usbhlh5lclvajWs XhVDTrRWy0ZUy8QQHgbVsk UuQlZJU5TpP4NXR9rLLddB 1hbGlnbjog xX0kD6AdXYGfbrfhIq63sD 7xCqLjRjO5USliRxg+Q09M MHkAByvzHI3VMeGVTUNTAU wvdGQ+PHRk UWT5fHsvFUbkOPFfsM5wXD OnN0s5GjFrMwW7NIwkS5Hg UVRiyoxiUd07gG5nIkMjKl J5ZWlcU4Hy hbE5DUYyyTJwMOnkOKK4M4 5vu5S0HCLvRWEwCPI2oTI7 iR8gdItsjfwgqEJdvMjbvu VydGljYWwt NRoyV552REZdeOhoAwE0Ze W5UwT0ZHH9Q2OkQmr8DSBo kLdwMP9vlCDuXKefDd0eqM uvxWlaIT6t WMEbnjqtKJXboI8lWICfxN SpjZfdEB2oEQUnvgtzv742 WnIsNVV7GIYlxXDvS9QvxS 9yOiAjMDAw DPEvI7KpbBCiXTakT090UH wxHnL0VGWurcIgJ9LpUBYi yNonSyP3m6V7Zr4qVDESTL FyczwvdGQ+ LWTrGOL9kZjsZAlnWBPkyE 8iWIJfX5k5LzUcGwX9DVfx D0EmAXWelofsDx02nS3zSo BrBvN2EQxr T3MjbaP2SXQiaOGvZIqcSE L9C65mj8S8KCWiTGGsQIP6 bRS3mG6hkKzbkbgioYCwjE sgdmVydGlj EAnsTKzfX023ZILnrDjeKp ZFTUFMRTwvdGQ+PHRkIHN0 rIlhWGxeWUYckO7tVFYmC6 m0CcNmReE3 CEmnL5YnUWTkdccwZn23aQ 6aLkTxSnA2INyzU5AsalD8 JCJtzQMxRNupKPU8A74dx8 M6NMTiQFWt EJV0kOU6vX3ukPbhlweonZ VmdDsgdmVydGljYWwtYWxp S607UOQnpDkwRyQpWSWpFM 5jeTwvdGQ+ CN35vg07A5TnRvbgLas6KY RySFA2gUQ1hI4cBYAlWVmi n8P7dNX0S2HwkxVztx4nc5 xsYXBzZTog P74rlTXgo1M1RLTdvHY0RZ LmvXpbCnXpcM98Zwu+PGNv wEcox4QeMnbht5cnt8oicN h1IjKsAOZl cjCwxOlbRZS9r6LtPy51D9 9sIHdpZHRoPSIzMCUiIHZh uXcwpe7jcG2cYf7+PGNvbC P8gSM7gL5d YxUaImP8WChpL502YiLazV GvNafry5wyp6zdyCz8SxPw IVAddeQfjVwyVJD5v2RoGu 13R4MeyDcv v0VbRqw6gc34bTAtq4P6qT E1A2WdNWZjwyxxhZHziYrm UN2iUGBqliagNVRddK2qTA BuS8t4RiYq JcH0JKscC2VfhyG9VGClaR PgPMNqcETNnW6vceiga2su faqfDgBxIGEdXHc9BDc8EO FsaWduOiBs GMD2XvL0WCD0jSKvqX6caX jompwlyI1uNbs+WOu2z8wg bIQsKR1ssKS7TG27XT19nJ Ddm4H7fBM9 M6DmWLCyydotmlyudJF8JZ RqMTMftP83Pg2yaIboZv7q BSSuDDF7AQRckQKnV0WrtG 9yOiAjMDAw CBJbM0QurRLiNZtjD955ZB rjKxQ3PTWglnUnD8ScPGZb kJvfFqP9o8S3Fg1JRP71VY 36NO70oKQg r9R0pPA2T7BdPSOgroflfa jqmZZ0YKUsPYNhhR77Fh9j eFmmGi5yADVsTET3WJRupB IaG1VvcH5k IuRyNBRqTOVuP7KrgNRmHA lyL356ONwoScI9KSUjmuDv S5YjJCExeXniEzG4f3T6Cm 8UTu09CB87 UI94oOLmp4W2bVT8S6WsRZ FavghkdolmiSJ6KZHiFAGb pH70Dg7zrJylCg9eHNFoTP K1JPGcpNNh D8BvfW1oNhTaITHyUXNkX8 PgcUUzEMerX065MPcePiJ9 XJJhwlFsK7DzFEFgsKuhTs I1u1F4Qe1R BEbylrg2I2LlRbmjnDO+PC 42ISXpNX64kDUgmWLmv5wk fPz3QxCyNAQiTNB5gKknYU udv7YgZDYo Y29 (more content not included)... [facility] Wound Cultureon 09-17-2024 Wound Culture Light growth [...] <=0.5/9.5 Verified Vanc S 1 Verified Normal [facility] Comment on above: Performed By: #### [id number] #### [facility] (DEFAULT) [address] [place] [address] MR FOOT RIGHT WO IV CONTRAST on [...] fracture which may be old in nature [facility] [employer] Radiology Study observation (narrative) [facility] - right 3 [employer] Result: Notable large cyst-like region to navicular tuberosity with negative fracture identified [employer] Radiology Study observation (narrative) [facility] Coding Summaryon 07-25-2024 Coding Summary HTMLBase 64 IvthwriiTCc7wKx+PGhlYW Q+JX7KJLGpV81kwDSxcT6i D0EIOLmRWuzaSHKXGGiXZo WqyjOyNE7woVGfRMQs IC8+WB0dQKNeNggivVUac7 V8bHZ3P75sqn1uVEyzhHN3 TIWfUnCzsjnmu9dinPh0HW cuNmluOyBt BIZmeN71APP5wA62Cy02gO SauUTzw7dbfFc8BoNaOPVp FGK8cZizXRcaz8TqMFJwP5 9frLMlo8K6 VSJlpEbujOSmUxDdjTZ0wA 1uKIsotwsbm1gyqfjcCof0 wg38gILvs0F4vVS5B3Qanp X0MDXbiTLy VgldtOSRkX0hvekxq4nygf cfUgUlJAKrRYe9JRs5YMBu gPjoEcSgHO47QST0AHDlex ObX9KdDUBy aYzmYqT4x1G4Rc7YY2HFSs wtJ9GQUUKZNDjmoFO+PC90 xc72Y4IxJjxiDmf3RHFvYU I3kZM5kD8f LVBkNCkhg6K9aDF4J3Orrm Geao3pv5mmLBNmFNywO55j oHMed8Z9WKTlgEU9DLAarB iyUpElmB88 Oyc+ZOZiuTxys3XvVbxqz7 juo7pgwPx6QywiILJlxoLc eHhyNZV7e8XhPc9fEFHwkU I5yLF9zM1z ViMkZgZ1YTqyC791XjMttM JfXieuF95mQ7OydGM+PHRy Vwk8IIKwnKktDN5vC0NjEY RpbmctbGVm xDucLQ0jFOEqdwvmBBTdmY 6gIWPlC4s6BuDlMkF2ZPif S8RmVTKlvwqeBb56nR9bVk HuVkF0PDan V0ZlrcM2PAZoiRBzCFrtOY Q4L51bh3F6TNCfHLYlJZT7 jIS2xA5kaOjuuzdzkHYgwS sgdmVydGlj CZcgIVktP522VGJrsFdwKi NvZGluZyBEYXRlOiAgMDQv MDcvMjAyNTwvdGQ+PHRkIH W1bWtbVELp sBKkVRvnEv7ufOhbgEyrSS 4eYJHaeokaTOIsdO6uRQGa cARmuViiOH4mTFCsntifd0 40XrQmOIJ5 WTOwmEVgU3LlkS6eQyOkAB QoXIDiU3RwkXKxXGqbB232 CEsfGcR7GOHmivYfC2UeSG FsaWduOiB0 r5I8Id7Wf7OzwwphL0PwoZ DcUfBqUanzDHy4B2HuXoqq dHI+SI95HYEbPF41RAu7SY P1cWmyYMce YGHoN7PtyB9fFaGaLIEmHM RkOyc+PHRhYmxlIHdpZHRo OHzjXSOdCeEadOixTE6aMx 9yZGVyLWNv oXhmaNZwNoWcr9qdYMGlKY cpEL2iiRveK0QibNI8TUWw b8s0Gb33S93kH6LvrNB+PG FstLN7nRR2 bQ1mHiMnFpI6THmoN457Nd YozNSdYqjtu1pns2rtvOg0 MmK8YUOeliAkdEtfPRT5i4 JwUm56M69n IHdpZHRoPSIxNSUiIHZhbG awlq8kgU1uIu3+PGNvbCB3 dUX0yF3lMwOxYfF8QQblU4 49InRvcCIv Citdm1xcs0aieEx7ImXxJZ AjucNliFeeUMK4a7JeLh58 H1WyvEpte3BaPgy8dp72mL Upy0S5yVN0 C3FqRBIxqymbbLOgcSwfPD 7xPDKiyyioTUVoiE6sOLEk B0e6JyBnRqJ8HFjaP8Oynj W7ZFHcsZDo OFWzuLLUcO4momdwk0vfrp uiUeSlDJOtEMx4ZUh1YUZn eTzzWjUgVMB6YxH1XNI0yZ VviN8iiZjv sqtfoU8wAgp+FBS3jPEqpI JEHR9uZoqqxZS+PHRkIHN0 oSleQWwrFXTuzV1xBSLvJ5 p5CsKsHzQ8 CPcyR3YczcE5EWFalOTlVU AptRVYyI9vensyz4xrtumu HsXvPTJrSBf4FKk5MUEanQ duOiBsZWZ0 YaR1AKI7gFSkpP3cqYgjpn itrF5lAlu+QmlydGggRGF0 CUp2Y7MfHwy0OCUbiYojZR 0ncGFkZGlu By7yfZqieCfyEZ5xBQPlwo htc765AdLxt7kjSPNylTIf OTvnPCS1X45oe5U2VHWwYF FzZIT0lAT4 wL2vmZzxtasqhJShpNcrzo XjgYhiQCcrLJhoJ923RWMf rJqvXqGmGTx2Y9EqIjg7HB HmcTbxOE9w xUSmWPgmUa9frAqhgHelUN 8lFKXyxfkac372WlJdn3uh FRFrkNUpKApnXVK0Q80fz0 N4HUQmGBDa IRE5yKS4pZ5zgVqgignrhI VmdDsgdmVydGljYWwtYWxp Y000CJDijCpjWfUwwCl9L9 OxWpa9IAJm fEuxDM9coUQdZHjeDz3dxU rlgYygQI6kNATmgdvbn481 NyFpc7ivRWEzvIKiTIqtEU X9X27hk0N2 QJErSMJlPRH5nTI6fA1jwU lnbjogbGVmdDsgdmVydGlj MOqiKVpsB981WNJjrDflHd BhdGllbnQg DNkkZGs5N0YjLfqrlCO+PC 68FZGmRX32qAXzeGCnq6yp rLv0YnClHDRaRXF6wUciMV mwv6QxGAZs D48baLYvs8R0NNKikHavnF VfOvDhfCC4nB6tURqrujsm o6xicvjxDaxdo7elcl38hE 81O53dFNkj ZHRoPSIzMCUiIHZhbGlnbj 2ruM9uZa8+OVTtrUY0uRS1 vD0vTZGnJkR3YMbwD452Hz RvcCIvPjxj c5wih0amsJr8XmW5DTHpbg GzqAwmYDC7q8RhTu14A16p IHdpZHRoPSIyMCUiIHZhbG mnfv1jtS3x Ii8+EZKbbRW2jTC1eO4wUq AgLoY3KZviA988MkFglCFb HltiX82fF4YuzFW+PHRyPj u9PYGpqBfr DO9dyGTbUSyuRq9iWNN4Kx ViBhVoPNfsP0UsZNUjydcj exrurNQ7MKFfCQPbrO82La 9udDogMTBw lCOHhY2iqppwq6eyimlwRt BcUSJvHMs8BFh3MVDgmBkd KoHcILM4JqX7REY5cTVmeQ 1hbGlnbjog bE2cG0GoRLLvorqnQf90lW 8aUuMuSwR1RWhoWwl+Q09M ZKeMKbybAE0BJsCWOFQFGL wvdGQ+PHRk TOG6yElkSWjtWFXxmG6wLY IqT2b9DrLdNrX6SYixM0Kt HQCsagejPm49lW1cKpHiQn G1NMfeE3Lt qhQ6FRKlyZCtGQtkUAS3F7 3tx7M6WTKdVJQoEPY4lZV2 hL5vhAcnvwsyhINshEllad VydGljYWwt PPrdP942HZIlrLldQqT9Qa N3CmL6KEE2N2FeIep4VDMq pDnwWE8kvFEiSJkkDc2kjT hzqJrwHN8i RVRvkcgbQMApaW9dKKSicT QafDgoZJ5vDNEgeqhtx427 CxSgLHH6XFPymBUtS7HnrG 9yOiAjMDAw RYRhH2BsgWTxQTkqK777OI juYbO7JGVohdTzY8VpQLVw lXwhSyZ3d1Q3Ti8iYOPUAW FyczwvdGQ+ PTUzYWZ8dYtfLIatVQMklF 8dWABtT9h1XcIuZoK9HJmp I1QaYWVlbqqwDg77xR7gSq DtWiM0RIlt D8LgfqY1LJMnuIMkNRxoGE R1U51gb2R7JGAdWMWxFOI3 bKN1sD8mzXkwyfediEOwnW sgdmVydGlj PCndLQhmH268NCSzxYtsXc ZFTUFMRTwvdGQ+PHRkIHN0 kGkmSXghJCRajC9tJDWaD9 i3VkUqFnQ9 EVmrL6BaMWIpshrpRc13pW 9bLvPoCzZ6VZsmT1TqtrP8 YBVltNLjEMhvTHM4Z25ui2 F1KNFePEOx PTW7iLA2hW6vlFuqxatxcQ VmdDsgdmVydGljYWwtYWxp R501UHUvpMfzNxDqPLBiFC 5jeTwvdGQ+ SR32uh29Z6MgZldnJwc0JF YdVFB2tTN0fA5cWVHaCDxo i6N3uGJ1B5NmmqAsoy7fy5 xsYXBzZTog Q05wuAHnh1T4HYQtfKY1MR GmtSerUrUmiM10Viv+PGNv sXirb7CaOvqtp0shs6wfsQ a8NiItBQBr ptBtaKtpZJT8v8AuYz13N8 9sIHdpZHRoPSIzMCUiIHZh eKpxvi6rpL5jLd4+PGNvbC N9iDR4lE8u KqVrBbI1EBfeZ337WnOruP JfTpzch3ufz5zmfOn6CfYl ZUSsfdTjtLqgWUP5r1PhEf 05N6WbfDip c8OjCld8fz65aHPku0N5lA R7T9XvJCTgiusdgMAviFip RQ3aNLRjczpbHDCytI5oWK PtL3e5NbGj WjW5BKaiV1DdtxY7BIRyvV BqZZJzgJYXmI2eyzrxq5rz zbmxOiPnSCGyYHj7FKa8UQ FsaWduOiBs ATE2WxM6VSS9qQIqhL1nsD addfxnnX9kUco+KKe6y2jt cAIaXC8gzMH9BZ14LC55hH Cph6T5zIS6 M8AhQYYhnonbeuibjBP9FJ YpPDEqqX77Ws2ygJdpIf8a GGApCRP8LCMzrUWrT2DjiT 9yOiAjMDAw OHRrY7QkdURiUQfvM625WM emOlU3UYZphjFeB1LxSRAy tOdyFaP7x3S1Qg5ASG54HN 87LR83oNEs f8A3bGC5H5WsEPApaylyee lqkEV9AXEsUGJwvB83Xz3x xWkuTm2xEKBdPMK1MIJsvT ReK2SvzT2a EzYsXJUbFKQtM3LxbCLxAT hgY288WUhqYuW2MIQyaaPo C9YnMCKpyVazRiU0q7J1Lc 6GIz63HK60 YU42uGNzz0X4qFR4X5FzUF ZodumkbgnovGX6MXIqZHGt pZ19Nz8dlXuwXm8xEROwTW G9EZDflZLf A1ZdqJ0iRaUeOIXoVQNsZ4 ZutEWpQVpxN765DOcgNyZ8 SDFxgeLwJ9GzGBVbjPsrXz R5x4R5Ks2X YYimlms1I8TkCcwjsFB+PC 47CSZrME33vWEbkPSzk1bs eJe5ZtQyVYSbJVG3bLhaPI nxl7DtFYNv Y29 (more content not included)... [facility] ED Note-Nursingon 07-17-2024 ED Note-Nursing Patient presents [...] Patient to ER room 7. [facility] XR Foot Complete Righton XR Foot Complete Right EXAM: XR Foot Complete Right HISTORY: foot pain COMPARISON: Right foot radiographs 06/05/2017 at [facility] TECHNIQUE: 3 views of the right foot FINDINGS: No acute fracture or soft tissue swelling. 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 Joint spaces in the mid foot are maintained. No radiopaque foreign body. IMPRESSION: No acute osseous abnormality. Final Dictated by: Gilmer Castro MD Dictated DT/TM: 07/17/24 9:26 Signed (Electronic Signature): Gilmer Castro MD 07/17/24 3:27 pm Technologist: MARIANA [facility] BUN, POCon 12-17-2023 Urea nitrogen [Mass/Vol] 21 mg/dL Normal 8-26 [facility] CALCIUM, IONIC (POC)on 12-16 Calcium.ionized (Bld) [Moles/Vol] 1.24 mmol/L 1.15 - 1.33 mmol/L [facility] Calcium, Ionic (POC)on 12-16 Calcium [Moles/Vol] 1.24 mmol/L Normal 1.15-1.33 [facility] Creatinine W/GFR Point of Ca reon 12-17-2023 Creatinine [Mass/Vol] 0.6 mg/dL 0.51 - 1.19 mg/dL [facility] eGFR, POC - PINF [facility] Comment on above: These [...] 11-19 Creatinine [Mass/Vol] 0.6 mg/dL Normal 0.51-1.19 [facility] GFR/1.73 sq M.predicted among non-blacks MDRD (S/P/Bld) [Vol rate/Area] mL/min/{1.73_m2} Normal >60 [facility] Comment on above: Result Comment: These results [...] [Moles/Vol] 12 mmol/L 7 - 16 mmol/L [facility] Chloride [Moles/Vol] 104 mmol/L 98 - 10 7 mmol/L [facility] CO2 Calc (Bld) [Moles/Vol] 27 mmol/L 22 - 30 mmol/L [facility] Potassium [Moles/Vol] 4.4 mmol/L 3.5 - 4.5 mmol/L [facility] Sodium [Moles/Vol] 142 mmol/L 138 - 146 mmol/L [facility] Electrolyteson 12-17-2023 Anion gap [Moles/Vol] 12 mmol/L Normal 7-16 [facility] Chloride [Moles/Vol] 104 mmol/L Normal 98-107 [facility] CO2 [Moles/Vol] 27 mmol/L Normal 22-30 [facility] Potassium [Moles/Vol] 4.4 mmol/L Normal 3.5-4.5 [facility] Sodium [Moles/Vol] 142 mmol/L Normal 138-146 [facility] Glucose (POC)on 12-17-2023 Glucose [Mass/Vol] 107 mg/dL High 74-100 [facility] Hemoglobin and hematocrit, b loodon 12-17-2023 Hematocrit (Bld) [Volume fraction] 41 % 36 - 46 % [facility] [employer] Hemoglobin (Bld) [Mass/Vol] 13.8 g/dL 12.0 - 16.0 g/dL [facility] [employer] Hgb/Hct, POCon 12-17-2023 Hematocrit (Bld) [Volume fraction] 41 % Normal 36-46 [facility] Hemoglobin (Bld) [Mass/Vol] 13.8 g/dL Normal 12.0-16.0 [facility] Lipid Panelon 12-17-2023 Cholesterol [Mass/Vol] 154 mg/dL 0 - 199 mg/dL [facility] Comment on above: Cholesterol Guidelines: <200 Desirable 200-240 Borderline >240 Undesirable Cholesterol in HDL [Mass/Vol] 63 mg/dL 40 - PINF mg/dL [facility] Comment on above: HDL Guidelines: <40 Undesirable 40-59 Borderline >59 Desirable Cholesterol in LDL [Mass/Vol] 77 mg/dL 0 - 100 mg/dL [facility] Comment on above: LDL Guidelines: <100 Desirable 100-129 Near to/above Desirable 130-159 Borderline >159 Undesirable Direct (measured) LDL and calculated LDL are not interchangeable tests. Cholesterol in VLDL [Mass/Vol] 14 mg/dL [facility] Cholesterol.total/Ch olesterol in HDL [Mass ratio] 2.0 {ratio} [facility] [employer] Triglyceride [Mass/Vol] 68 mg/dL NINF - 150 mg/dL [facility] Comment on above: Triglyceride Guidelines: <150 Desirable 150-199 Borderline 200-499 High >499 Very high Based on AHA Guidelines for fasting triglyceride, January 2012. Lipid Profileon 12-17-2023 Cholesterol [Mass/Vol] 154 mg/dL Normal 0-199 [facility] Comment on above: Result Comment: Cholesterol Guidelines: <200 Desirable 200-240 Borderline >240 Undesirable Performed By: #### L IPR, ANAM #### [facility] [employer] [address] [place] [address] Field Administrative Assistant: Hemant June MD Cholesterol in HDL [Mass/Vol] 63 mg/dL Normal >40 [facility] Comment on above: Result Comment: HDL Guidelines: <40 Undesirable 40-59 Borderline >59 Desirable Performed By: #### L IPR, ANAM #### [facility] [employer] [address] [place] [address] Field Administrative Assistant: Hemant June MD Cholesterol in LDL [Mass/Vol] 77 mg/dL Normal 0-100 [facility] Comment on above: Result Comment: LDL Guidelines: <100 Desirable 100-129 Near to/above Desirable 130-159 Borderline >159 Undesirable Direct (measured) LDL and calculated LDL are not interchangeable tests. Performed By: #### L IPR, ANAM #### [facility] [employer] [address] [place] [address] Field Administrative Assistant: Hemant June MD Cholesterol in VLDL [Mass/Vol] 14 mg/dL Normal [facility] Comment on above: Performed By: #### L IPR, ANAM #### [facility] [employer] [address] [place] [address] Field Administrative Assistant: Hemant June MD Cholesterol.total/Ch olesterol in HDL [Mass ratio] 2.0 {ratio} Normal [facility] Comment on above: Performed By: #### L IPR, ANAM #### [facility] [address] [place] [address] Field Administrative Assistant: Hemant June MD Triglyceride [Mass/Vol] 68 mg/dL Normal <150 [facility] Comment on above: Result Comment: Triglyceride Guidelines: <150 Desirable 150-199 Borderline 200-499 High >499 Very high Based on AHA Guidelines for fasting triglyceride, January 2012. Performed By: #### L IPR, ANAM #### [facility] [employer] [address] [place] [address] Field Administrative Assistant: Hemant June MD No Panel Informationon 12-16 [facility] POCT Glucoseon 12-17-2023 Glucose [Mass/Vol] 107 mg/dL High 74 - 100 mg/dL [facility] Interpretation and review of laboratory results Abnormal [facility] POCT urea (BUN)on 12-17-2023 Urea nitrogen [Mass/Vol] 21 mg/dL 8 - 26 mg/dL [facility] Phosphoruson 12-17-2023 Phosphate [Mass/Vol] 4.1 mg/dL 2.5 - 4 .5 mg/dL [facility] Phosphorus, Inorg.on 024 Phosphorus, Inorg. 4.1 mg/dL Normal 2.5-4.5 [facility] Comment on above: Performed By: #### L IPR, ANAM #### [facility] [address] [place] [address] Field Administrative Assistant: Hemant June MD CBC with Auto Differentialon 11-21-2023 Basophils (Bld) [#/Vol] 0.03 10*3/uL [facility] Basophils/100 WBC (Bld) 0 % 0 - 2 % [facility] Eosinophils (Bld) [#/Vol] 0.11 10*3/uL [facility] Eosinophils/100 WBC (Bld) 2 % 1 - 4 % [facility] Erythrocyte distribution width (RBC) [Ratio] 11.9 % 11.8 - 14.4 % [facility] Hematocrit (Bld) [Volume fraction] 43.1 % 36.3 - 47.1 % [facility] Hemoglobin (Bld) [Mass/Vol] 13.9 g/dL 11.9 - 15.1 g/dL [facility] Immature granulocytes (Bld) [#/Vol] [facility] Immature granulocytes/100 WBC (Bld) 0 % 0 [facility] Interpretation and review of laboratory results Abnormal [facility] Lymphocytes/100 WBC (Bld) 26 % 24 - 43 % [facility]ALTH Lymphocytes/100 WBC (Bld) 1.88 % [facility] MCH (RBC) [Entitic mass] 30.4 pg 25.2 - 33.5 pg [facility] MCHC (RBC) [Mass/Vol] 32.3 g/dL 28.4 - 34.8 g/dL [facility] MCV (RBC) [Entitic vol] 94.3 fL 82.6 - 102.9 fL [facility] Monocytes/100 WBC (Bld) 6 % 3 - 12 % [facility]ALTH Monocytes/100 WBC (Bld) 0.43 % [facility] Neutrophils/100 WBC (Bld) 66 % High 36 - 65 % [facility] Nucleated RBC/100 WBC (Bld) [Ratio] 0.0 % 0.0 per 100 WBC [facility] Platelet mean volume (Bld) [Entitic vol] 10.6 fL 8.1 - 13.5 fL [facility] Platelets (Bld) [#/Vol] 210 10*3/uL [facility] RBC (Bld) [#/Vol] 4.57 10*6/uL 3.95 - 5.1 1 m/uL [facility] Segmented neutrophils/100 WBC (Bld) 4.75 % [facility] WBC other (Bld) [#/Vol] 7.2 [facility] CBC with Diffon 11-21-2023 Abs. Basophil 0.03 k/uL Normal 0.00-0.20 [facility] Comment on above: Performed By: #### C DP, HCG, CP #### [facility] [address] [place], [place] [phone] Field Administrative Assistant: Hemant June MD Abs.Imm.Granulocyte <0.03 Normal 0.00-0.30 [facility] Comment on above: Performed By: #### C DP, HCG, CP #### [facility] [address] [place], [place] [phone] Field Administrative Assistant: Hemant June MD Abs.Neutrophil (Seg) 4.75 k/uL Normal 1.50-8.10 [facility] Comment on above: Performed By: #### C DP, HCG, CP #### [address] [address] Field Administrative Assistant: Hemant June MD Basophils/100 WBC (Bld) 0 % Normal 0-2 [facility] Comment on above: Performed By: #### C DP, HCG, CP #### [address] [address] Field Administrative Assistant: Hemant June MD Eosinophils (Bld) [#/Vol] 0.11 10*3/uL Normal 0.00-0.44 [facility] Comment on above: Performed By: #### C DP, HCG, CP #### [address] [address] Field Administrative Assistant: Hemant June MD Eosinophils/100 WBC (Bld) 2 % Normal 1-4 [facility] Comment on above: Performed By: #### C DP, HCG, CP #### [address] [address] Field Administrative Assistant: Hemant June MD Erythrocyte distribution width (RBC) [Ratio] 11.9 % Normal 11.8-14.4 [facility] Comment on above: Performed By: #### C DP, HCG, CP #### [address] [address] Field Administrative Assistant: Hemant June MD Hematocrit (Bld) [Volume fraction] 43.1 % Normal 36.3-47.1 [facility] Comment on above: Performed By: #### C DP, HCG, CP #### [address] [address] Field Administrative Assistant: Hemant June MD Hemoglobin (Bld) [Mass/Vol] 13.9 g/dL Normal 11.9-15.1 [facility] Comment on above: Performed By: #### C DP, HCG, CP #### [address] [address] Field Administrative Assistant: Hemant June MD Immature granulocytes/100 WBC (Bld) 0 % Normal 0 [facility] Comment on above: Performed By: #### C DP, HCG, CP #### [place] [address] Field Administrative Assistant: Hemant June MD Lymphocytes (Bld) [#/Vol] 1.88 10*3/uL Normal 1.10-3.70 [facility] Comment on above: Performed By: #### C DP, HCG, CP #### [address] [address] Field Administrative Assistant: Hemant June MD Lymphocytes/100 WBC (Bld) 26 % Normal 24-43 [facility] Comment on above: Performed By: #### C DP, HCG, CP #### [address] [address] Field Administrative Assistant: Hemant June MD MCH (RBC) [Entitic mass] 30.4 pg Normal 25.2-33.5 [facility] Comment on above: Performed By: #### C DP, HCG, CP #### [place] [address] Field Administrative Assistant: Hemant June MD MCHC (RBC) [Mass/Vol] 32.3 g/dL Normal 28.4-34.8 [facility] Comment on above: Performed By: #### C DP, HCG, CP #### [address] [address] Field Administrative Assistant: Hemant June MD MCV (RBC) [Entitic vol] 94.3 fL Normal 82.6-102.9 [facility] Comment on above: Performed By: #### C DP, HCG, CP #### [address] [address] Field Administrative Assistant: Hemant June MD Monocytes (Bld) [#/Vol] 0.43 10*3/uL Normal 0.10-1.20 [facility] Comment on above: Performed By: #### C DP, HCG, CP #### [address] [address] Field Administrative Assistant: Hemant June MD Monocytes/100 WBC (Bld) 6 % Normal 3-12 [facility] Comment on above: Performed By: #### C DP, HCG, CP #### [address] [address] Field Administrative Assistant: Hemant June MD Neutrophil (Seg) 66 % High 36-65 [facility] Comment on above: Performed By: #### C DP, HCG, CP #### [address] [address] Field Administrative Assistant: Hemant June MD NRBC Automated 0.0 per 100 WBC Normal 0.0 [facility] Comment on above: Performed By: #### C DP, HCG, CP #### [address] [address] Field Administrative Assistant: Hemant June MD Platelet mean volume (Bld) [Entitic vol] 10.6 fL Normal 8.1-13.5 [facility] Comment on above: Performed By: #### C DP, HCG, CP #### [address] [address] Field Administrative Assistant: Hemant June MD Platelets (Bld) [#/Vol] 210 10*3/uL Normal 138-453 [facility] Comment on above: Performed By: #### C DP, HCG, CP #### [address] [phone] Field Administrative Assistant: Hemant June MD RBC (Bld) [#/Vol] 4.57 10*6/uL Normal 3.95-5.11 [facility] Comment on above: Performed By: #### C DP, HCG, CP #### [facility] [address] [place] [address] Field Administrative Assistant: Hemant June MD WBC (Bld) [#/Vol] 7.2 10*3/uL Normal 3.5-11.3 [facility] Comment on above: Performed By: #### C DP, HCG, CP #### [facility] [address] [place], [place] [phone] Field Administrative Assistant: Hemant June MD CT ABDOMEN PELVIS W [...] Abdulkadir Tsang MD 11/21/23 Final result Normal [facility] CT Abdomen and Pelvis W cont rast [...] is in the differential. 5. Mild splenomegaly. PN RIS CONSOLIDATED EXAMINATION: CT OF THE ABDOMEN [...] is in the differential. 5. Mild splenomegaly. [facility] Radiology Study observation (narrative) [facility] CT Abdomen and Pelvis W cont rast IVOrdered By: Abdulkadir Tsang on 11-21-2023 [facility] Work Phone: Comp Metabolic Profon 2023 Albumin [Mass/Vol] 4.6 g/dL Normal 3.5-5.2 [facility] Comment on above: Performed By: #### C DP, HCG, CP #### [address] [address] Field Administrative Assistant: Hemant June MD Albumin/Glob Ratio 2.0 Normal 1.0-2.5 [facility] Comment on above: Performed By: #### C DP, HCG, CP #### [address] [address] Field Administrative Assistant: Hemant June MD Alkaline Phos 66 U/L Normal 35-104 [facility] Comment on above: Performed By: #### C DP, HCG, CP #### [address] [address] Field Administrative Assistant: Hemant June MD ALT [Catalytic activity/Vol] 12 U/L Normal 10-35 [facility] Comment on above: Performed By: #### C DP, HCG, CP #### [address] [address] Field Administrative Assistant: Hemant June MD Anion gap [Moles/Vol] 11 mmol/L Normal 9-16 [facility] Comment on above: Performed By: #### C DP, HCG, CP #### [address] [address] Field Administrative Assistant: Hemant June MD AST [Catalytic activity/Vol] 22 U/L Normal 10-35 [facility] Comment on above: Performed By: #### C DP, HCG, CP #### [address] [address] Field Administrative Assistant: Hemant June MD Bilirubin [Mass/Vol] 0.3 mg/dL Normal 0.00-1.20 [facility] Comment on above: Performed By: #### C DP, HCG, CP #### [address] [address] Field Administrative Assistant: Hemant June MD Calcium [Mass/Vol] 8.9 mg/dL Normal 8.6-10.4 [facility] Comment on above: Performed By: #### C DP, HCG, CP #### [facility] [employer] [address] [place] [address] Field Administrative Assistant: Hemant June MD Chloride [Moles/Vol] 105 mmol/L Normal 98-107 [facility] Comment on above: Performed By: #### C DP, HCG, CP #### [facility] [employer] [address] [place] [address] Field Administrative Assistant: Hemant June MD CO2 [Moles/Vol] 23 mmol/L Normal 20-31 [facility] Comment on above: Performed By: #### C DP, HCG, CP #### [address] [address] Field Administrative Assistant: Hemant June MD Creatinine [Mass/Vol] 0.7 mg/dL Normal 0.50-0.90 [facility] Comment on above: Performed By: #### C DP, HCG, CP #### [address] [address] Field Administrative Assistant: Hemant Juen MD GFR/1.73 sq M.predicted among non-blacks MDRD (S/P/Bld) [Vol rate/Area] mL/min/{1.73_m2} Normal >60 [facility] Comment on above: Result Comment: These results [...] By: #### C DP, HCG, CP #### [facility] [employer] [facility] [place] [address] Field Administrative Assistant: Hemant June MD Glucose [Mass/Vol] 76 mg/dL Normal 74-99 [facility] Comment on above: Performed By: #### C DP, HCG, CP #### [facility] [employer] [address] [place] [address] Field Administrative Assistant: Hemant June MD Potassium [Moles/Vol] 3.7 mmol/L Normal 3.7-5.3 [facility] Comment on above: Result Comment: SPEC IMEN SLIGHTLY HEMOLYZED, RESULTS MAY BE ADVERSELY AFFECTED. Performed By: #### C DP, HCG, CP #### [facility] [address] [place] [address] Field Administrative Assistant: Hemant June MD Protein [Mass/Vol] 7.5 g/dL Normal 6.6-8.7 [facility] Comment on above: Performed By: #### C DP, HCG, CP #### [facility] [address] [place] [address] Field Administrative Assistant: Hemant June MD Sodium [Moles/Vol] 139 mmol/L Normal 136-145 [facility] Comment on above: Performed By: #### C DP, HCG, CP #### [facility] [address] [place] [address] Field Administrative Assistant: Hemant June MD Urea nitrogen [Mass/Vol] 15 mg/dL Normal 6-20 [facility] Comment on above: Performed By: #### C DP, HCG, CP #### [facility] [address] [place] [address] Field Administrative Assistant: Hemant June MD Comprehensive Metabolic Pane [facility] 11-21-2023 Albumin [Mass/Vol] 4.6 g/dL 3.5 - 5.2 g/dL [facility] Albumin/Globulin [Mass ratio] 2.0 {ratio} 1.0 - 2.5 [facility] ALP [Catalytic activity/Vol] 66 U/L 35 - 104 U/L [facility] ALT [Catalytic activity/Vol] 12 U/L 10 - 35 U/L [facility] Anion gap [Moles/Vol] 11 mmol/L 9 - 16 mmol/L [facility] AST [Catalytic activity/Vol] 22 U/L 10 - 35 U/L [facility] Bilirubin [Mass/Vol] 0.3 mg/dL 0.00 - 1.20 mg/dL [facility] Calcium [Mass/Vol] 8.9 mg/dL 8.6 - 10. 4 mg/dL [facility] Chloride [Moles/Vol] 105 mmol/L 98 - 10 7 mmol/L [facility] CO2 [Moles/Vol] 23 mmol/L 20 - 31 mmol/L [facility] Creatinine [Mass/Vol] 0.7 mg/dL 0.50 - 0.90 mg/dL [facility] Est, Glom Filt Rate - PINF [facility] Comment on above: These results [...] [Mass/Vol] 76 mg/dL 74 - 99 mg/dL [facility] Potassium [Moles/Vol] 3.7 mmol/L 3.7 - 5.3 mmol/L [facility] Comment on above: SPECIMEN SLIGHTLY HE MOLYZED, RESULTS MAY BE ADVERSELY AFFECTED. Protein [Mass/Vol] 7.5 g/dL 6.6 - 8.7 g/dL [facility] Sodium [Moles/Vol] 139 mmol/L 136 - 145 mmol/L [facility] Urea nitrogen [Mass/Vol] 15 mg/dL 6 - 20 mg/dL [facility] HCG Qualitative, Serumon HCG ( test) Ql Negative NEGATIVE [facility] [employer] Comment on above: Specimens with hCG l evels near the threshold of the test (25 mIU/mL) may give a negative or indeterminate result. In such cases, another test should be performed with a new specimen in 48-72 hours. If early is suspected clinically in this setting, correlation with quantitative serum b-hCG level is suggested. [email or web address] has confirmed the use of plasma for this test. This has not been cleared or approved by the U.S. Food and Drug Administration. The FDA has determined that such clearance is not necessary. [facility] [employer] HCG Screen, Bloodon 11-21-19 24 HCG Screen, Blood Negative Normal [facility]G [facility] Comment on above: Result Comment: Spec imens with hCG levels near the threshold of the test (25 mIU/mL) may give a negative or indeterminate result. In such cases, another test should be performed with a new specimen in 48-72 hours. If early is suspected clinically in this setting, correlation with quantitative serum b-hCG level is suggested. [email or web address] has confirmed the use of plasma for this test. This has not been cleared or approved by the U.S. Food and Drug Administration. The FDA has determined that such clearance is not necessary. Performed By: #### C DP, HCG, CP #### [email or web address] [address] [place] [address] Field Administrative Assistant: Hemant June MD Ambulatory Visit Summaryon 1 04-22-2022 Ambulatory Visit Summary TIARA PARIKH :1985 Visit Date:02/20/2023 Ambulatory Visit Instructions Your Diagnosis Abscess of right breast unrelated to or Your Care Team Attending Physician - MYA TEMPLE, Miguelina Swanson Primary Care Physician - Barry House MD This Is Your Medications List [...] choosing us for your care. [facility] General Surgery Office/Clini c Noteon 02-20-2023 General [...] E&M of Est. Patient Low 20-29 Min 04118 2. Left groin pain, (R10.32: Left lower [...] E&M of Est. Patient Low 20-29 Min 78785 Follow-up No qualifying data available Problem List/Past [...] Diabetes mellitus t (more content not included)... [facility] Comment on above: Result Comment: Elec tronically Signed By: Miguelina ROQUE MD\.br\Date and Time Signed: 02/20/23 14:32 EDT Ambulatory Visit Summaryon 1 Ambulatory Visit Summary TIARA PARIKH :1985 Visit Date:01/28/2023 Ambulatory Visit Instructions Your Diagnosis Abscess of right breast unrelated to or Your Care Team Attending Physician - Miguelina ROQUE MD Primary Care Physician - Barry House MD This Is Your Medications List [...] ROQUE MD Where: General Surgery Mya/Chris Gray [facility] General Surgery Office/Clini c Noteon [...] pt has had 2 shots Normal [facility] Comment on above: Result Comment: Elec tronically Signed By: MYA TEMPLE, Miguelina Swanson\.br\Date and Time Signed: 01/28/23 14:20 EDT Ambulatory Visit Summaryon 0 01-14-2023 Ambulatory Visit Summary FARIHA TIARA R :1985 Visit Date:01/14/2023 Ambulatory Visit Instructions Your Care Team Attending Physician - MYA TEMPLE, Miguelina Swanson Primary Care Physician - Barry House MD This Is Your Medications List [...] Miguelina ROQUE MD Where: General Surgery Nill/Said [place] [facility] General Surgery Office/Clini c Noteon 01-14-2023 General [...] Recorded pt has had 2 shots Normal [facility] Comment on above: Result Comment: Elec tronically Signed By: MYA TEMPLE, Miguelina Solis\Date and Time Signed: 01/14/23 17:16 EDT Pathology Noteon 01-14-2023 Pathology Note [id number]#1.0 0CD:127 [facility] Operative Reporton Operative Report [id number]#1.00 CD:127 [facility] Lab Reportson 01-12-2023 Lab Reports [id number]#1.00 CD:127 [facility] Lab Reports [id number]#1.00 CD:127 [facility] Lab Reportson 01-09-2023 Lab Reports [id number]#1.0 0CD:127 [facility] Lab Reports [id number]#1.0 0CD:127 [facility] Lab Reportson 01-07-2023 Lab Reports [id number]#1.0 0CD:127 Normal [facility] Lab Reportson 12-26-2022 Lab Reports [id number]#1.0 0CD:127 Normal [facility] Lab Reportson 12-25-2022 Lab Reports [id number]#1.0 0CD:127 Normal [facility] RAD - MISCon 12-25-2022 RAD - MISC [id number]#1.00 CD:127 Normal [facility] Consent for Procedure/Surger yon 12-24-2022 Consent for Procedure/Surgery [id number]#1.0 0CD:127 Normal [facility] Insurance Correspondenceon 0 12-24-2022 Insurance Correspondence [id number]#1.0 0CD:127 Normal [facility] General Surgery Office/Clini c Noteon 12-23-2022 General [...] use inte (more content not included)... Normal [facility] Comment on above: Result Comment: Elec tronically Signed By: Miguelina ROQUE MD\.br\Date and Time Signed: 12/23/22 17:03 EDT Ambulatory Visit Summaryon 0 12-16-2022 Ambulatory Visit Summary TIARA PARIKH :1985 Visit Date:12/16/2022 Ambulatory Visit Instructions Your Care Team Attending Physician - Miguelina ROQUE MD Primary Care Physician - Hoy MD, Barry This Is Your Medications List aripiprazole (Abilify [...] Miguelina Swanson Where: General Surgery Mya/Chris Hawk [facility] General Surgery Office/Clini c Noteon 12-16-2022 General [...] Recorded pt has had 2 shots Normal [facility] Comment on above: Result Comment: Elec tronically Signed By: MYA TEMPLE, Miguelina Swanson\.br\Date and Time Signed: 12/16/22 16:32 EDT Ambulatory Visit Summaryon 0 12-11-2022 Ambulatory Visit Summary TIARA PARIKH :1985 Visit Date:12/11/2022 Ambulatory Visit Instructions Your Diagnosis Abscess of right breast unrelated to or Your Care Team Attending Physician - Miguelina ROQUE MD Primary Care Physician - Barry House MD This Is Your Medications List [...] TEMPLE, Miguelina Swanson Where: General Surgery Nill/[facility] Lab Reportson 11-17-2022 Lab Reports [id number]#1.0 0CD:127 Normal [facility] General Surgery Office/Clini c Noteon 11-16-2022 General Surgery Office/Clinic Note Chief Complaint breast mass HPI Staff 36 year old female presents on consultation from [facility] for painful right breast mass. Patient [...] Suboxone, chronic hepatitis C, eczema, referred from [facility] ED for right breast pain, cellulitis, and [...] gabapentin 8 (more content not included)... Normal [facility] Comment on above: Result Comment: Elec tronically Signed By: MYA TEMPLE, Miguelina Swanson\.br\Date and Time Signed: 11/16/22 21:32 EDT Ambulatory Visit Summaryon 0 11-14-2022 Ambulatory Visit Summary TIARA PARIKH :1985 Visit Date:11/14/2022 Ambulatory Visit Instructions Your Care Team Attending Physician - Miguelina ROQUE MD Primary Care Physician - Barry House MD This Is Your Medications List [...] pain Frequency of urination Urinary frequency Normal [facility] General Surgery Office/Clini c Noteon 11-14-2022 General [...] pt has had 2 shots Normal [facility] Comment on above: Result Comment: Elec tronically Signed By: MYA TEMPLE, Miguelina Solis\Date and Time Signed: 11/14/22 14:56 EDT Lab Reportson 11-14-2022 Lab Reports [id number]#1.0 0CD:127 [facility] Lab Reports [id number]#1.0 0CD:127 [facility] Ambulatory Visit Summaryon 0 11-11-2022 Ambulatory Visit Summary TIARA PARIKH :1985 Visit Date:11/11/2022 Ambulatory Visit Instructions Your Care Team Attending Physician - MYA TEMPLE, Miguelina Swanson Primary Care Physician - Barry House MD This Is Your Medications List [...] MYA TEMPLE, Miguelina Swanson Where: General Surgery Stevanl/Chris Gray [facility] ED Note-Physicianon 11-12-19 ED Note-Physician [id number] 0CD:127 [facility] RAD - Ultrasound Reporton RAD - Ultrasound Report [id number] 0CD:127 [facility] Physician Referralon 023 Physician Referral [id number]#1.0 0CD:127 [facility] Formson 08-07-2022 Forms [id number] 0CD:127 [facility] Ambulatory Visit Summaryon 0 08-06-2022 Ambulatory Visit Summary TIARA PARIKH :1985 Visit Date:08/06/2022 Ambulatory Visit Instructions Your Care Team Attending Physician - MYA TEMPLE, Miguelina Swanson Primary Care Physician - Harsh TEMPLE, Barry Referring Physician - Harsh TEMPLE, Barry This Is Your Medications List aripiprazole (Abilify [...] pain Frequency of urination Urinary frequency Normal [facility] Provider Letteron 07-18-2022 Provider Letter July 18, 2022 TIARA PARIKH [address] [place] [address] TIARA PARIKH 1985 Dear Tiara , We have been trying to reach you with no success. It is important that you return our call regarding your referral from Dr. House upon receiving this letter. Also, at the time of your call, please provide us with your current information. Thank you for your prompt attention to this matter. Sincerely, General Surgery Dr. Mya Gray/[place] [phone] Normal [facility] RAD - CT Reporton 07-17-2022 RAD - CT Report [id number]#1.0 0CD:127 Normal [facility] Physician Referralon 023 Physician Referral [id number]#1.0 0CD:[address] [facility] [address] ABD/PELV W CONon 07-10-[address] [...] Date: 2022-07-09 11:03 Normal [facility] US PELVIS AND TRANSVAGon US [...] Date: 2022-07-03 12:02 Normal [facility] CHLAMYDIA/GONOCOCCUS JOHANA (SW AB/URINE/PAPon 05-19-2022 Chlamydia trachomatis, JOHANA Negative Normal Negative [facility] Comment on above: Performed By: #### C T/NGNA #### [facility] [address] [address] [address] Gunner Dwyer Neisseria gonorrhoeae, JOHANA Negative Normal Negative [facility] Comment on above: Performed By: #### C T/NGNA #### [facility] [address] [address] [address] Gunner Dwyer VAGINITIS/VAGINOSIS DNA PROB Yuri 05-17-2022 Violeta species Negative Normal Negative [facility] Comment on above: Performed By: #### G STAIN #### [facility] [address] [place] [address] Dr. Gunner Dwyer Gardnerella vaginalis Negative Normal Negative [facility] Comment on above: Performed By: #### G STAIN #### [facility] [address] [place] [address] Dr. Gunner Dwyer Trichomonas vaginalis Negative Normal Negative [facility] Comment on above: Performed By: #### G STAIN #### [facility] [address] [place] [address] Dr. Gunner Dwyer Provider Letteron 04-23-2022 Provider Letter April 23, 2022 TIARA PARIKH [address] [place] [address] TIARA PARIKH 1985 Dear Tiara, We have [...] [facility] [address], [place] [address] [facility] CBC AUTO DIFFon 04-03-2022 BASO # 0.0 103/ul Normal 0.0-0.1 [facility] Comment on above: Performed By: #### E STRONE #### [facility] [address] [place] [address] Dr. Gunner Dwyer Basophils/100 WBC (Bld) 0.2 % Normal 0.2-2.0 [facility] Comment on above: Performed By: #### E STRONE #### [facility] [address] [place] [address] Dr. Gunner Dwyer EO # 0.0 103/ul Normal 0.0-0.7 [facility] Comment on above: Performed By: #### E STRONE #### [facility] [address] [place] [address] Dr. Gunner Dwyer Eosinophils/100 WBC (Bld) 0.4 % Critically low 0.9-7.0 [facility] Comment on above: Performed By: #### E STRONE #### [facility] [address] [place] [address] Dr. Gunner Dwyer Erythrocyte distribution width (RBC) [Ratio] 11.9 % Normal 11.0-15.0 [facility] Comment on above: Performed By: #### E STRONE #### [facility] [address] [place] [address] Dr. Gunner Dwyer Hematocrit (Bld) [Volume fraction] 39.3 % Normal 36.0-48.0 [facility] Comment on above: Performed By: #### E STRONE #### [facility] [address] [place] [address] Dr. Gunner Dwyer Hemoglobin (Bld) [Mass/Vol] 13.3 g/dL Normal 12.0-16.0 [facility] Comment on above: Performed By: #### E STRONE #### [facility] [address] [place] [address] Dr. Gunner Dwyer IG # 0.01 10e3/ul Normal 0.00-0.03 [facility] Comment on above: Performed By: #### E STRONE #### [facility] [address] [place] [address] Dr. Gunner Dwyer IG % 0.2 % Normal 0.0-0.5 [facility] Comment on above: Performed By: #### E STRONE #### [facility] [address] [place] [address] Dr. Gunner Dwyer LYMPH # 1.3 103/ul Normal 1.2-3.8 [facility] Comment on above: Performed By: #### E STRONE #### [facility] [address] [place] [address] Dr. Gunner Dwyer Lymphocytes/100 WBC (Bld) 26.4 % Normal 20.5-60.0 [facility] Comment on above: Performed By: #### E STRONE #### [facility] [address] [place] [address] Dr. Gunner Dwyer MANUAL DIFF REQ NO Normal [facility] Comment on above: Performed By: #### E STRONE #### [facility] [address] [place] [address] Dr. Gunner Dwyer MCH (RBC) [Entitic mass] 30.6 pg Normal 26.7-34.0 [facility] Comment on above: Performed By: #### E STRONE #### [facility] [address] [place] [address] Dr. Gunner Dwyer MCHC (RBC) [Mass/Vol] 33.8 g/dL Normal 29.9-35.2 [facility] Comment on above: Performed By: #### E STRONE #### [facility] [address] [place] [address] Dr. Gunner Dwyer MCV (RBC) [Entitic vol] 90.3 fL Normal 81.0-99.0 [facility] Comment on above: Performed By: #### E STRONE #### [facility] [address] [place] [address] Dr. Gunner Dwyer MONO # 0.4 103/ul Normal 0.3-0.8 [facility] Comment on above: Performed By: #### E STRONE #### [facility] [address] [place] [address] Dr. Gunner Dwyer Monocytes/100 WBC (Bld) 7.4 % Normal 1.7-12.0 [facility] Comment on above: Performed By: #### E STRONE #### [facility] [address] [place] [address] Dr. Gunner Dwyer NEUT # 3.1 103/ul Normal 1.4-6.5 [facility] Comment on above: Performed By: #### E STRONE #### [facility] [address] [place] [address] Dr. Gunner Dwyer Neutrophils/100 WBC (Bld) 65.4 % Normal 43.0-75.0 [facility] Comment on above: Performed By: #### E STRONE #### [facility] [address] [place] [address] Dr. Gunner Dwyer Platelet mean volume (Bld) [Entitic vol] 10.7 fL Normal 9.5-13.5 [facility] Comment on above: Performed By: #### E STRONE #### [facility] [address] [address] [address] Gunner Dwyer PLT 125 103/ul Critically low 150-450 [facility] Comment on above: Result Comment: SPEC IMEN REDRAWN FOR VERIFICATION--SLIDE REVIEWED FOR PLATELET CLUMPS/NONE SEEN Performed By: #### E STRONE #### [facility] [address] [address] [address] Gunner Dwyer RBC 4.35 106/ul Normal 4.20-5.40 [facility] Comment on above: Performed By: #### E STRONE #### [facility] [address] [address] [address] Gunner Dwyer WBC 4.7 103/ul Normal 4.0-11.0 [facility] Comment on above: Performed By: #### E STRONE #### [facility] [address] [place] [address] Dr. Gunner Dwyer [facility] SARS-CoV-2 (COVID-19) RNA JOHANA+probe Ql (Unsp spec) Not detected Normal NOT DETECTED [facility] Comment on above: Result Comment: This test is not yet approved or cleared by the [place] FDA. When there are no FDA-approved or cleared tests available, and other criteria are met, FDA can make tests available under an emergency access mechanism called an Emergency Use Authorization (EUA). The EUA for this test is supported by the [employer] [place] of Health and Human Service's (HHS's) declaration [...] By: #### T POAB #### [facility] [address] [place] [address] Dr. Gunner Dwyer DRUG SCREEN RAPID (URINE)on 03-24-2022 AMP Negative Normal NEGATIVE [facility] Comment on above: Performed By: #### G STAIN #### [facility] [address] [place] [address] Dr. Gunner Dwyer BAR Negative Normal NEGATIVE [facility] Comment on above: Performed By: #### G STAIN #### [facility] [address] [place] [address] Dr. Gunner Dwyer BUP Positive Abnormal NEGATIVE [facility] Comment on above: Performed By: #### G STAIN #### [facility] [address] [place] [address] Dr. Gunner Dwyer BZO Negative Normal NEGATIVE [facility] Comment on above: Performed By: #### G STAIN #### [facility] [address] [place] [address] Dr. Gunenr Dwyer JOSEPH Negative Normal NEGATIVE [facility] Comment on above: Performed By: #### G STAIN #### [facility] [address] [place] [address] Dr. Gunner Dwyer CUT-OFFS SEE BELOW Normal [facility] Comment on above: Result Comment: [...] By: #### G STAIN #### [facility] [address] [place] [address] Dr. Gunner Dwyer DRUG CUT HEADER DRUG CLASS TEST SYST EM CUT-OFF CONCENTRATIONS ARE FOLLOWS: Normal [facility] Comment on above: Performed By: #### G STAIN #### [facility] [address] [place] [address] Dr. Gunner Dwyer mAMP Negative Normal NEGATIVE [facility] Comment on above: Performed By: #### G STAIN #### [facility] [address] [place] [address] Dr. Gunner Dwyer MTD Negative Normal NEGATIVE [facility] Comment on above: Performed By: #### G STAIN #### [facility] [address] [place] [address] Dr. Gunner Dwyer OPI Negative Normal NEGATIVE [facility] Comment on above: Performed By: #### G STAIN #### [facility] [address] [place] [address] Dr. Gunner Dwyer OXY Negative Normal NEGATIVE [facility] Comment on above: Performed By: #### G STAIN #### [facility] [address] [place] [address] Dr. Gunner Dwyer PCP Negative Normal NEGATIVE [facility] Comment on above: Performed By: #### G STAIN #### [facility] [address] [place] [address] Dr. Gunner Dwyer PPX Negative Normal NEGATIVE [facility] Comment on above: Performed By: #### G STAIN #### [facility] [address] [place] [address] Dr. Gunner Dwyer TCA Negative Normal NEGATIVE [facility] Comment on above: Performed By: #### G STAIN #### [facility] [address] [place] [address] Dr. Gunner Dwyer THC Positive Abnormal NEGATIVE [facility] Comment on above: Performed By: #### G STAIN #### [facility] [address] [place] [address] Dr. Gunner Dwyer CORTISOL FREE, SERUMon 03-08 Cortisol, Free Dialysis, LCMS 0.470 ug/dL Normal [facility] Comment on above: Result Comment: Thes e tests were developed and their performance characteristics determined by [facility]. They have not been cleared or approved by the Food and Drug Administration. Reference Range: 8 AM 0.10 - 1.20 4 PM 0.042 - 0.872 Performed By: #### C T/NGNA #### [facility] [address] [place] [address] Dr. Gunner Dwyer SEROTONINon 03-04-2022 Serotonin, Serum 33 ng/mL Normal 31-207 [facility] Comment on above: Performed By: #### E STRONE #### [facility] [address] [place] [address] Dr. Gunner Dwyer TESTOSTERONE, FREE,DIRECT, T OTALon 03-02-2022 Free Testosterone(Direct) 0.5 pg/mL Normal 0.0-4.2 [facility] Comment on above: Result Comment: Perf ormed at: BN Performed By: #### C T/NGNA #### [facility] [address] [place] [address] Dr. Gunner Dwyer Testosterone [Mass/Vol] 18 ng/dL Normal 8-60 [facility] Comment on above: Result Comment: Perf ormed at: CB Performed By: #### C T/NGNA #### [facility] [address] [place] [address] Dr. Gunner Dwyer ESTRONEon 02-28-2022 Estrone, Serum 39 pg/mL Normal 27-231 [facility] Comment on above: Result Comment: Rang e Adult (Premenopausal) 27 - 231 Menstrual Cycle (1-10 days) 19 - 149 Menstrual Cycle (11-20 days) 32 - 176 Menstrual Cycle (21-30 days) 37 - 200 Performed By: #### E STRONE #### [facility] [address] [place] [address] Dr. Gunner Dwyer REVERSE T3on 02-28-2022 Reverse T3, Serum 32.0 ng/dL Critically high 9.2-24.1 [facility] Comment on above: Result Comment: This test was developed and its performance characteristics determined by [facility]. It has not been cleared or approved by the Food and Drug Administration. Performed By: #### G STAIN #### [facility] [address] [place] [address] Dr. Gunner Dwyer VIT D 1 25 DIHYDROXYon 02-28 Calcitriol(1,25 di-OH Vit D) 26.1 pg/mL Normal 24.8-81.5 [facility] Comment on above: Performed By: #### E LAURA #### [facility] [address] [place] [address] Dr. Gunner Dwyer THYROGLOBULIN AB AND THYROGL OBULINon 02-27-2022 Thyroglobulin Antibody <1.0 Normal 0.0-0.9 [facility] Comment on above: Result Comment: Thyr oglobulin Antibody measured by Rohini Rodessa Methodology Performed By: #### C T/NGNA #### [facility] [address] [place] [address] Dr. Gunner Dwyer Thyroglobulin by REJI 2.7 ng/mL Normal 1.5-38.5 [facility] Comment on above: Result Comment: Acco [...] By: #### C T/NGNA #### [facility] [address] [place] [address] Dr. Gunner Dwyer C-PEPTIDE, SERUMon C-Peptide, Serum 3.7 ng/mL Normal 1.1-4.4 [facility] Comment on above: Result Comment: C-Pe ptide reference interval is for fasting patients. Performed By: #### C T/NGNA #### [facility] [address] [place] [address] Dr. Gunner Dwyer DHEA-SULFATEon 02-26-2022 DHEA-Sulfate 43.9 ug/dL Critically low 57.3-279.2 [facility] Comment on above: Performed By: #### C T/NGNA #### [facility] [address] [place] [address] Dr. Gunner Dwyer ESTRADIOLon 02-26-2022 Estradiol 86.3 pg/mL Normal [facility] Comment on above: Result Comment: Adul t Female: Follicular phase 12.5 - 166.0 Ovulation phase 85.8 - 498.0 Luteal phase 43.8 - 211.0 Postmenopausal <6.0 - 54.7 1st trimester 215.0 - >4300.0 Paolo ECLIA methodology Performed By: #### E STRADI #### [facility] [address] [place] [address] Dr. Gunner Dwyer INSULINon 02-26-2022 Insulin 17.9 uIU/mL Normal 2.6-24.9 [facility] Comment on above: Performed By: #### T POAB #### [facility] [address] [place] [address] Dr. Gunner Dwyer PROGESTERONEon 02-26-2022 Progesterone 0.9 ng/mL Normal [facility] Comment on above: Result Comment: Foll icular phase 0.1 - 0.9 Luteal phase 1.8 - 23.9 Ovulation phase 0.1 - 12.0 First trimester 11.0 - 44.3 Second trimester 25.4 - 83.3 Third trimester 58.7 - 214.0 Postmenopausal 0.0 - 0.1 Performed By: #### E STRONE #### [facility] [address] [place] [address] Dr. Gunner Dwyer SEX HORMONE-BINDING GLOBULIN on 02-26-2022 Sex Horm Binding Glob, Serum 81.9 nmol/L Normal 24.6-122.0 [facility] Comment on above: Performed By: #### C T/NGNA #### [facility] [address] [place] [address] Dr. Gunner Dwyer T3, TOTAL (TRIIODOTHYRONINE) on 02-26-2022 T3, TOTAL 196 ng/dL Critically high 71-180 [facility] Comment on above: Performed By: #### T POAB #### [facility] [address] [place] [address] Dr. Gunner Dwyer THYROID PEROXIDASE ABon 11-0 Thyroid Peroxidase (TPO) Ab 31 IU/mL Normal 0-34 [facility] Comment on above: Performed By: #### T POAB #### [facility] [address] [address] [address] Gunner Dwyer FERRITINon 02-25-2022 Ferritin [Mass/Vol] 103.0 ng/mL Normal 6.2-137.0 [facility] Comment on above: Performed By: #### C T/NGNA #### [facility] [address] [place] [address] Dr. Gunner Dwyer FREE T3on 02-25-2022 FREE T3 2.95 pg/mlL Normal 2.18-3.98 [facility] Comment on above: Performed By: #### G YAMILA, FT3, T4, TSH #### [facility] [address] [place] [address] Dr. Gunner Dwyer FREE T4on 02-25-2022 Free T4 [Mass/Vol] 1.15 ng/dL Normal 0.76-1.46 [facility] Comment on above: Performed By: #### C T/NGNA #### [facility] [address] [place] [address] Dr. Gunner Dwyer GLUCOSE BLOODon 02-25-2022 Glucose [Mass/Vol] 100 mg/dL Normal 74-106 [facility] Comment on above: Performed By: #### G YAMILA, FT3, T4, TSH #### [facility] [address] [place] [address] Dr. Gunner Dwyer GLYCOHEMOGLOBIN A1Con 2021 ADA RECOMMENDATION SEE BELOW Normal [facility] Comment on above: Result Comment: ADA RECOMMENDED LIMIT 4.0 - 6.0 ADA THERAPEUTIC TARGET < 7.0 ACTION SUGGESTED > 7.0 Performed By: #### A 1C #### [facility] [address] [place] [address] Dr. Gunner Dwyer Glucose [Mass/Vol] 105 mg/dL Normal [facility] Comment on above: Performed By: #### A 1C #### [facility] [address] [place] [address] Dr. Gunner Dwyer HbA1c (Bld) [Mass fraction] 5.3 % Normal 4.5-6.2 [facility] Comment on above: Performed By: #### A 1C #### [facility] [address] [place] [address] Dr. Gunner Dwyer T4on 02-25-2022 T4 [Mass/Vol] 13.60 ug/dL Normal 4.80-13.90 [facility] Comment on above: Performed By: #### G YAMILA, FT3, T4, TSH #### [facility] [address] [address] [address] Gunner Dwyer TSHon 02-25-2022 TSH 0.759 uIU/mL Normal 0.358-3.740 [facility] Comment on above: Performed By: #### G YAMILA, FT3, T4, TSH #### [facility] [address] [place] [address] Dr. Gunner Dwyer CULTURE OTHERon 02-08-2022 CULTURE [...] F Trimethoprim/Sulfameth oxazole <=20 S F Normal [facility] Comment on above: Performed By: #### E STRONE #### [facility] [address] [place] [address] Dr. Gunner Dwyer CULTURE ANAEROBICon 02-06-20 CULTURE ANAEROBIC Culture Observations : NO GROWTH OF ANAEROBES AT 72 HOURS. Normal [facility] Comment on above: Performed By: #### E STRONE #### [facility] [address] [place] [address] Dr. Gunner Dwyer GRAM STAINon 02-05-2022 DIPHTHEROIDS Normal [facility] Comment on above: Performed By: #### G STAIN #### [facility] Laboratory [address] [place] [address] Dr. Gunner Dwyer EPITHELIALS RARE Normal [facility] Comment on above: Performed By: #### G STAIN #### [facility] [address] [address] [address] Gunner Dwyer FUNGAL ELEMENTS Normal [facility] Comment on above: Performed By: #### G STAIN #### [facility] [address] [place] [address] Dr. Gunner Dwyer GRAM NEG BACILLI RARE Normal [facility] Comment on above: Performed By: #### G STAIN #### [facility] [address] [address] [address] Gunner Dwyer GRAM NEG DIPPLOCOCCI MODERATE Normal [facility] Comment on above: Performed By: #### G STAIN #### [facility] [address] [place] [address] Dr. Gunner GONZALEZ POS BACILLI Normal [facility] Comment on above: Performed By: #### G STAIN #### [facility] [address] [place] [address] Dr. Gunner Dwyer GRAM POSITIVE COCCI FEW Normal [facility] Comment on above: Performed By: #### G STAIN #### [facility] [address] [address] [address] Gunner Dwyer GRAM STAIN SOURCE nipple discharge Normal [facility] Comment on above: Performed By: #### G STAIN #### [facility] [address] [place] [address] Dr. Gunner Dwyer GS_DIPTH [facility] Comment on above: Performed By: #### G STAIN #### [facility] [address] [place] [address] Dr. Gunner Dwyer WBC Normal [facility] Comment on above: Performed By: #### G STAIN #### [facility] [address] [address] [address] Gunner Dwyer INSULINon 01-31-2022 Insulin 8.5 uIU/mL Normal 2.6-24.9 [facility] Comment on above: Performed By: #### G STAIN #### [facility] [address] [place] [address] Dr. Gunner Dwyer CBC AUTO DIFFon 01-30-2022 BASO # 0.0 103/ul Normal 0.0-0.1 [facility] Comment on above: Performed By: #### G STAIN #### [facility] [address] [place] [address] Dr. Gunner Dwyer Basophils/100 WBC (Bld) 0.6 % Normal 0.2-2.0 [facility] Comment on above: Performed By: #### G STAIN #### [facility] [address] [place] [address] Dr. Gunner Dwyer EO # 0.1 103/ul Normal 0.0-0.7 [facility] Comment on above: Performed By: #### G STAIN #### [facility] [address] [place] [address] Dr. Gunner Dwyer Eosinophils/100 WBC (Bld) 2.5 % Normal 0.9-7.0 [facility] Comment on above: Performed By: #### G STAIN #### [facility] [address] [place] [address] Dr. Gunner Dwyer Erythrocyte distribution width (RBC) [Ratio] 11.9 % Normal 11.0-15.0 [facility] Comment on above: Performed By: #### G STAIN #### [facility] [address] [place] [address] Dr. Gunner Dwyer Hematocrit (Bld) [Volume fraction] 42.8 % Normal 36.0-48.0 [facility] Comment on above: Performed By: #### G STAIN #### [facility] [address] [place] [address] Dr. Gunner Dwyer Hemoglobin (Bld) [Mass/Vol] 13.8 g/dL Normal 12.0-16.0 [facility] Comment on above: Performed By: #### G STAIN #### [facility] [address] [place] [address] Dr. Gunner Dwyer IG # 0.01 10e3/ul Normal 0.00-0.03 [facility] Comment on above: Performed By: #### G STAIN #### [facility] [address] [place] [address] Dr. Gunner Dwyer IG % 0.2 % Normal 0.0-0.5 [facility] Comment on above: Performed By: #### G STAIN #### [facility] [address] [place] [address] Dr. Gunner Dwyer LYMPH # 1.4 103/ul Normal 1.2-3.8 [facility] Comment on above: Performed By: #### G STAIN #### [facility] [address] [place] [address] Dr. Gunner Dwyer Lymphocytes/100 WBC (Bld) 27.5 % Normal 20.5-60.0 [facility] Comment on above: Performed By: #### G STAIN #### [facility] [address] [place] [address] Dr. Gunner Dwyer MANUAL DIFF REQ NO Normal [facility] Comment on above: Performed By: #### G STAIN #### [facility] [address] [place] [address] Dr. Gunner Dwyer MCH (RBC) [Entitic mass] 31.1 pg Normal 26.7-34.0 [facility] Comment on above: Performed By: #### G STAIN #### [facility] [address] [place] [address] Dr. Gunner Dwyer MCHC (RBC) [Mass/Vol] 32.2 g/dL Normal 29.9-35.2 [facility] Comment on above: Performed By: #### G STAIN #### [facility] [address] [place] [address] Dr. Gunner Dwyer MCV (RBC) [Entitic vol] 96.4 fL Normal 81.0-99.0 [facility] Comment on above: Performed By: #### G STAIN #### [facility] [address] [place] [address] Dr. Gunner Dwyer MONO # 0.3 103/ul Normal 0.3-0.8 [facility] Comment on above: Performed By: #### G STAIN #### [facility] [address] [place] [address] Dr. Gunner Dwyer Monocytes/100 WBC (Bld) 6.1 % Normal 1.7-12.0 [facility] Comment on above: Performed By: #### G STAIN #### [facility] [address] [place] [address] Dr. Gunner Dwyer NEUT # 3.3 103/ul Normal 1.4-6.5 [facility] Comment on above: Performed By: #### G STAIN #### [facility] [address] [place] [address] Dr. Gunner Dwyer Neutrophils/100 WBC (Bld) 63.1 % Normal 43.0-75.0 [facility] Comment on above: Performed By: #### G STAIN #### [facility] [address] [place] [address] Dr. Gunner Dwyer Platelet mean volume (Bld) [Entitic vol] 10.5 fL Normal 9.5-13.5 [facility] Comment on above: Performed By: #### G STAIN #### [facility] [address] [place] [address] Dr. Gunner Dwyer PLT 171 103/ul Normal 150-450 [facility] Comment on above: Performed By: #### G STAIN #### [facility] [address] [place] [address] Dr. Gunner Dwyer RBC 4.44 106/ul Normal 4.20-5.40 [facility] Comment on above: Performed By: #### G STAIN #### [facility] [address] [place] [address] Dr. Gunner Dwyer WBC 5.2 103/ul Normal 4.0-11.0 [facility] Comment on above: Performed By: #### G STAIN #### [facility] [address] [place] [address] Dr. Gunner Dwyer FREE THYROXINE INDEX T7on FTI 3.05 Normal 1.30-4.50 [facility] Comment on above: Performed By: #### T POAB #### [facility] [address] [place] [address] Dr. Gunner Dwyer T3U 24.0 % Critically low 30.0-39.0 [facility] Comment on above: Performed By: #### T POAB #### [facility] [address] [address] [address] Gunner Dwyer T4 [Mass/Vol] 12.70 ug/dL Normal 4.80-13.90 [facility] Comment on above: Performed By: #### T POAB #### [facility] [address] [address] [address] Gunner Dwyer GLYCOHEMOGLOBIN A1Con 2021 ADA RECOMMENDATION SEE BELOW Normal [facility] Comment on above: Result Comment: ADA RECOMMENDED LIMIT 4.0 - 6.0 ADA THERAPEUTIC TARGET < 7.0 ACTION SUGGESTED > 7.0 Performed By: #### T POAB #### [facility] [address] [place] [address] Dr. Gunner Dwyer Glucose [Mass/Vol] 97 mg/dL Normal [facility] Comment on above: Performed By: #### T POAB #### [facility] [address] [place] [address] Dr. Gunner Dwyer HbA1c (Bld) [Mass fraction] 5.0 % Normal 4.5-6.2 [facility] Comment on above: Performed By: #### T POAB #### [facility] [address] [place] [address] Dr. Gunner Dwyer IRONon 01-30-2022 Iron [Mass/Vol] 101.0 ug/dL Normal 50.0-170.0 [facility] Comment on above: Performed By: #### C T/NGNA #### [facility] [address] [place] [address] Dr. Gunner Dwyer LIPID PROFILEon 01-30-2022 CHOL-HDL RATIO NORM SEE BELOW Normal [facility] Comment on above: Result Comment: 3.3 - 4.4 LOW RISK 4.4 - 7.1 AVERAGE RISK 7.1 - 11.0 MODERATE RISK >11.0 HIGH RISK Performed By: #### T POAB #### [facility] [address] [place] [address] Dr. Gunner Dwyer Cholesterol [Mass/Vol] 168 mg/dL Normal <=200 [facility] Comment on above: Performed By: #### T POAB #### [facility] [address] [address] [address] Gunner Dwyer Cholesterol in HDL [Mass/Vol] 88 mg/dL Critically high 40-60 [facility] Comment on above: Performed By: #### T POAB #### [facility] [address] [address] [address] Gunner Dwyer Cholesterol in LDL [Mass/Vol] 69.6 mg/dL Normal [facility] Comment on above: Performed By: #### T POAB #### [facility] [address] [address] [address] Gunner Dwyer Cholesterol.total/Ch olesterol in HDL [Mass ratio] 1.9 {ratio} Normal [facility] Comment on above: Performed By: #### T POAB #### [facility] [address] [place] [address] Dr. Gunner Dwyer HDL NORMAL > or = 60 mg/dl - LO W CARDIOVASCULAR RISK <40 mg/dl - HIGH CARDIOVASCULAR RISK Normal [facility] Comment on above: Performed By: #### T POAB #### [facility] [address] [address] [address] Gunner Dwyer LDL CALC NORMAL SEE BELOW Normal [facility] Comment on above: Result Comment: <100 mg/dl OPTIMAL 100 - 129 mg/dl NEAR OR ABOVE OPTIMAL 130 - 159 mg/dl BORDERLINE HIGH 160 - 189 mg/dl HIGH >190 mg/dl VERY HIGH Performed By: #### T POAB #### [facility] [address] [address] [address] Gunner Dwyer Triglyceride [Mass/Vol] 52 mg/dL Normal <=150 [facility] Comment on above: Performed By: #### T POAB #### [facility] [address] [address] [address] Gunner Dwyer VLDL CALC 10.4 mg/dL Normal [facility] Comment on above: Performed By: #### T POAB #### [facility] [address] [address] [address] Gunner Dwyer PROF 14(COMP METB)on 10-13-2 022 Albumin [Mass/Vol] 4.0 g/dL Normal 3.4-5.0 [facility] Comment on above: Performed By: #### T POAB #### [facility] [address] [place] [address] Dr. Gunner Dwyer Albumin/Globulin [Mass ratio] 1.2 {ratio} Normal [facility] Comment on above: Performed By: #### T POAB #### [facility] [address] [address] [address] Gunner Dwyer ALP [Catalytic activity/Vol] 62 U/L Normal 46-116 [facility] Comment on above: Performed By: #### T POAB #### [facility] [address] [place] [address] Dr. Gunner Dwyer ALT [Catalytic activity/Vol] 60 U/L Critically high 14-59 [facility] Comment on above: Performed By: #### T POAB #### [facility] [address] [place] [address] Dr. Gunner Dwyer Anion gap [Moles/Vol] 10.8 mmol/L Normal [facility] Comment on above: Performed By: #### T POAB #### [facility] [address] [place] [address] Dr. Gunner Dwyer AST [Catalytic activity/Vol] 35 U/L Normal 15-37 [facility] Comment on above: Performed By: #### T POAB #### [facility] [address] [place] [address] Dr. Gunner Dwyer Bilirubin [Mass/Vol] 0.4 mg/dL Normal 0.2-1.0 [facility] Comment on above: Performed By: #### T POAB #### [facility] [address] [place] [address] Dr. Gunner Dwyer Calcium [Mass/Vol] 8.8 mg/dL Normal 8.5-10.1 [facility] Comment on above: Performed By: #### T POAB #### [facility] [address] [place] [address] Dr. Gunner Dwyer Chloride [Moles/Vol] 104 mmol/L Normal 98-107 [facility] Comment on above: Performed By: #### T POAB #### [facility] [address] [address] [address] Gunner Dwyer CO2 [Moles/Vol] 28.2 mmol/L Normal 21.0-32.0 [facility] Comment on above: Performed By: #### T POAB #### [facility] [address] [address] [address] Gunner Dwyer Creatinine [Mass/Vol] 0.69 mg/dL Normal 0.55-1.02 [facility] Comment on above: Performed By: #### T POAB #### [facility] [address] [place] [address] Dr. Gunner Dwyer EGFR-AF ETHIOPIAN >60 Normal >=60 [facility] Comment on above: Performed By: #### T POAB #### [facility] [address] [place] [address] Dr. Gunner Dwyer EGFR-NON AF ETHIOPIAN >60 Normal >=60 [facility] Comment on above: Performed By: #### T POAB #### [facility] [address] [address] [address] Gunner Dwyer Globulin (S) [Mass/Vol] 3.3 g/dL Normal [facility] Comment on above: Performed By: #### T POAB #### [facility] [address] [place] [address] Dr. Gunner Dwyer Glucose [Mass/Vol] 95 mg/dL Normal 74-106 [facility] Comment on above: Performed By: #### T POAB #### [facility] [address] [place] [address] Dr. Gunner Dwyer Potassium [Moles/Vol] 4.0 mmol/L Normal 3.5-5.1 [facility] Comment on above: Performed By: #### T POAB #### [facility] [address] [place] [address] Dr. Gunner Dwyer Protein [Mass/Vol] 7.3 g/dL Normal 6.4-8.2 [facility] Comment on above: Performed By: #### T POAB #### [facility] [address] [address] [address] Gunner Dwyer Sodium [Moles/Vol] 139 mmol/L Normal 136-145 [facility] Comment on above: Performed By: #### T POAB #### [facility] [address] [place] [address] Dr. Gunner Dwyer Urea nitrogen [Mass/Vol] 18.0 mg/dL Normal 7.0-18.0 [facility] Comment on above: Performed By: #### T POAB #### [facility] [address] [place] [address] Dr. Gunner Dwyer Urea nitrogen/Creatinine [Mass ratio] 26.1 mg/mg Normal [facility] Comment on above: Performed By: #### T POAB #### [facility] [address] [place] [address] Dr. Gunner Dwyer TSHon 01-30-2022 TSH 0.529 uIU/mL Normal 0.358-3.740 [facility] Comment on above: Performed By: #### T POAB #### [facility] [address] [place] [address] Dr. Gunner Dwyer VITAMIN D 25 OHon 01-30-2022 VIT D 25-OH 30.6 ng/mL Normal [facility] Comment on above: Performed By: #### C T/NGNA #### [facility] [address] [place] [address] Dr. Gunner Dwyer VIT D RANGES SEE BELOW Normal [facility] Comment on above: Result Comment: <20 ng/mL Vit D deficient 20 - <30 ng/mL Vit D insufficient 30 - 100 ng/mL Vit D sufficient >100 ng/mL Potential Toxicity Performed By: #### C T/NGNA #### [facility] [address] [place] [address] Dr. Gunner Dwyer XR LSPINE MIN 4 [...] by: GUILLE MISTRY Date: 2022-01-30 18:59 Normal [facility] Vital Signs Date Time Vital Sign Value Performing Clinician Facility 11-16-2024 16:15-0400 Body height 170.2 cm Serg Dolce DPM FACFAS Work Phone: [facility] 11-16-2024 16:15-0400 Body mass index (BMI) [Ratio] 43.54 kg/m2 Serg Dolce DPM FACFAS Work Phone: [facility] 11-16-2024 16:15-0400 Body weight 126.1 kg Serg Dolce DPM FACFAS Work Phone: [facility] 11-16-2024 16:15-0400 Diastolic blood pressure 79 mm[Hg] Serg Dolce DPM FACFAS Work Phone: [facility] 11-16-2024 16:15-0400 Heart rate 77 /min Serg Dolce DPM FACFAS Work Phone: [facility] 11-16-2024 16:15-0400 Systolic blood pressure 129 mm[Hg] Serg Dolce DPM FACFAS Work Phone: [facility] 10-26-2024 16:14-0400 Body height 170.2 cm Serg Dolce DPM FACFAS Work Phone: [facility] 10-26-2024 16:14-0400 Body mass index (BMI) [Ratio] 43.54 kg/m2 Serg Dolce DPM FACFAS Work Phone: [facility] 10-26-2024 16:14-0400 Body weight 126.1 kg Serg Dolce DPM FACFAS Work Phone: [facility] 10-26-2024 16:14-0400 Diastolic blood pressure 78 mm[Hg] Serg Dolce DPM FACFAS Work Phone: [facility] 10-26-2024 16:14-0400 Heart rate 79 /min Serg Dolce DPM FACFAS Work Phone: [facility] 10-26-2024 16:14-0400 Systolic blood pressure 128 mm[Hg] Serg Dolce DPM FACFAS Work Phone: [facility] 10-19-2024 16:51-0400 Body height 170.2 cm Serg Dolce DPM FACFAS Work Phone: [facility] 10-19-2024 16:51-0400 Body mass index (BMI) [Ratio] 43.54 kg/m2 Serg Dolce DPM FACFAS Work Phone: [facility] 10-19-2024 16:51-0400 Body weight 126.1 kg Serg Dolce DPM FACFAS Work Phone: [facility] 10-19-2024 16:51-0400 Diastolic blood pressure 77 mm[Hg] Serg Dolce DPM FACFAS Work Phone: [facility] 10-19-2024 16:51-0400 Heart rate 74 /min Serg Dolce DPM FACFAS Work Phone: [facility] 10-19-2024 16:51-0400 Systolic blood pressure 126 mm[Hg] Serg Dolce DPM FACFAS Work Phone: [facility] 10-05-2024 16:19-0400 Body height 170.2 cm Serg Dolce DPM FACFAS Work Phone: [facility] 10-05-2024 16:19-0400 Body mass index (BMI) [Ratio] 43.54 kg/m2 Serg Dolce DPM FACFAS Work Phone: [facility] 10-05-2024 16:19-0400 Body weight 126.1 kg Serg Dolce DPM FACFAS Work Phone: [facility] 10-05-2024 16:19-0400 Diastolic blood pressure 75 mm[Hg] Serg Dolce DPM FACFAS Work Phone: [facility] 10-05-2024 16:19-0400 Heart rate 73 /min Serg Azulce DPM FACFAS Work Phone: [facility] 10-05-2024 16:19-0400 Systolic blood pressure 125 mm[Hg] Serg Dolce DPM FACFAS Work Phone: [facility] 09-14-2024 16:38-0400 Body height 170.2 cm Serg Dolce DPM FACFAS Work Phone: [facility] 09-14-2024 16:38-0400 Body mass index (BMI) [Ratio] 43.54 kg/m2 Serg Dolce DPM FACFAS Work Phone: [facility] 09-14-2024 16:38-0400 Body weight 126.1 kg Serg Dolce DPM FACFAS Work Phone: [facility] 09-14-2024 16:38-0400 Diastolic blood pressure 74 mm[Hg] Serg Liangce DPM FACFAS Work Phone: [facility] 09-14-2024 16:38-0400 Heart rate 74 /min Segr Dolce DPM FACFAS Work Phone: [facility] 09-14-2024 16:38-0400 Systolic blood pressure 124 mm[Hg] Serg Liangce DPM FACFAS Work Phone: [facility] 09-06-2024 15:30-0400 Body height 170.2 cm Yared Terrazas DPM Work Phone: [facility] 09-06-2024 15:30-0400 Body mass index (BMI) [Ratio] 43.54 kg/m2 Yared Terrazas DPM Work Phone: [facility] 09-06-2024 15:30-0400 Body weight 126.1 kg Yared Terrazas DPM Work Phone: [facility] 09-06-2024 15:30-0400 Respiratory rate 16 /min Yared Terrazas DPM Work Phone: [facility] 08-29-2024 15:22-0400 Body height 170.2 cm Yared Terrazas DPM Work Phone: [facility] 08-29-2024 15:22-0400 Body mass index (BMI) [Ratio] 43.54 kg/m2 Yared Terrazas DPM Work Phone: [facility] 08-29-2024 15:22-0400 Body weight 126.1 kg Yared Terrazas DPM Work Phone: [facility] 08-29-2024 15:22-0400 Respiratory rate 16 /min Yared Terrazas DPM Work Phone: [facility] 08-08-2024 15:44-0400 Body height 170.2 cm Yared Terrazas DPM Work Phone: [facility] 08-08-2024 15:44-0400 Body mass index (BMI) [Ratio] 43.54 kg/m2 Yared Terrazas DPM Work Phone: [facility] 08-08-2024 15:44-0400 Body weight 126.1 kg Yared Terrazas DPM Work Phone: [facility] 08-08-2024 15:44-0400 Respiratory rate 16 /min Yared Terrazas DPM Work Phone: [facility] 12-17-2023 11:15-0400 Diastolic blood pressure 70 mm[Hg] Darrick Benitez MD Work Phone: [facility] 12-17-2023 11:15-0400 Heart rate 84 /min Darrick Benitez MD Work Phone: [facility] 12-17-2023 11:15-0400 Respiratory rate 16 /min Darrick Benitez MD Work Phone: [facility] 12-17-2023 11:15-0400 SaO2% (BldA) [Mass fraction] 96 % Darrick Benitez MD Work Phone: [facility] 12-17-2023 11:15-0400 Systolic blood pressure 133 mm[Hg] Darrick Benitez MD Work Phone: [facility] [employer] 12-17-2023 11:00-0400 Body temperature 96.8 [degF] Darrick Benitez MD Work Phone: [facility] [employer] 12-03-2023 08:44-0400 Body temperature 97.5 [degF] Darrick Benitez MD Work Phone: [facility] [employer] 12-03-2023 08:44-0400 Diastolic blood pressure 70 mm[Hg] Darrick Benitez MD Work Phone: [facility] [employer] 12-03-2023 08:44-0400 Heart rate 58 /min Darrick Benitez MD Work Phone: [facility] [employer] 12-03-2023 08:44-0400 Respiratory rate 15 /min Darrick Benitez MD Work Phone: [facility] [employer] 12-03-2023 08:44-0400 SaO2% (BldA) [Mass fraction] 95 % Darrick Benitez MD Work Phone: [facility] [employer] 12-03-2023 08:44-0400 Systolic blood pressure 123 mm[Hg] Darrick Benitez MD Work Phone: [facility] [employer] 11-30-2023 13:11-0400 Body height 170.2 cm Darrick Benitez MD Work Phone: [facility] [employer] 11-30-2023 13:11-0400 Body mass index (BMI) [Ratio] 40.57 kg/m2 Darrick Benitez MD Work Phone: [facility] [employer] 11-30-2023 13:11-0400 Body weight 117.48 kg Darrick Benitez MD Work Phone: [facility] [employer] 11-21-2023 15:57-0400 Body mass index (BMI) [Ratio] 40.71 kg/m2 Saul Patterson MD [facility] [employer] 11-21-2023 15:57-0400 Body temperature 97.3 [degF] Saul Patterson MD [facility] Downstream 11-21-2023 15:57-0400 Body weight 117.9 kg Saul Patterson MD [facility] [place] [employer] 11-21-2023 15:57-0400 Diastolic blood pressure 73 mm[Hg] Saul Patterson MD [facility] [place] [employer] 11-21-2023 15:57-0400 Heart rate 82 /min Saul Patterson MD [facility] [place] [employer] 11-21-2023 15:57-0400 Respiratory rate 16 /min Saul Patterson MD [facility] [place] [employer] 11-21-2023 15:57-0400 SaO2% (BldA) [Mass fraction] 100 % Saul Patterson MD [facility] [place] [employer] 11-21-2023 15:57-0400 Systolic blood pressure 127 mm[Hg] Saul Patterson MD [facility] [place] [employer] [facility] [employer] 11-21-2023 11:52-0400 Body height 170.18 cm MD Barry House Work Phone: [facility] 11-21-2023 11:52-0400 Body temperature 97.4 [degF] MD Barry House Work Phone: [facility] 11-21-2023 11:52-0400 Body weight 117 kg MD Barry House Work Phone: [facility] 11-21-2023 11:52-0400 Diastolic blood pressure 74 mm[Hg] MD Barry House Work Phone: [facility] 11-21-2023 11:52-0400 Heart rate 78 /min MD Barry House Work Phone: [facility] 11-21-2023 11:52-0400 Respiratory rate 18 /min MD Barry House Work Phone: [facility] 11-21-2023 11:52-0400 SaO2% (BldA) [Mass fraction] 97 % MD Barry House Work Phone: [facility] 11-21-2023 11:52-0400 Systolic blood pressure 135 mm[Hg] MD Barry House Work Phone: [facility] 12-11-2022 13:54-0400 Blood Pressure Location Miguelina NILL [facility] General Surgery [place] 12-11-2022 13:54-0400 Diastolic blood pressure 84 mm[Hg] Miguelina NILL [facility] Surgery [place] 12-11-2022 13:54-0400 Heart rate 72 /min Miguelina NILL [facility] Surgery [place] 12-11-2022 13:54-0400 Respiratory rate 16 /min Miguelina NILL [facility] Surgery [place] 12-11-2022 13:54-0400 Systolic blood pressure 126 mm[Hg] Miguelina NILL [facility] Surgery [place] 08-06-2022 13:25-0400 Diastolic blood pressure 84 mm[Hg] Miguelina NILL [facility] Surgery [place] 08-06-2022 13:25-0400 Heart rate 70 /min Miguelina NILL [facility] Surgery [place] 08-06-2022 13:25-0400 Respiratory rate 16 /min Miguelina NILL General Surgery [place] 08-06-2022 13:25-0400 Systolic blood pressure 122 mm[Hg] Miguelina NILL [facility] [place] 02-19-2021 16:45-0400 Body height 170.18 cm Guille Abrams Other [employer] Other 02-19-2021 16:45-0400 Body mass index (BMI) [Ratio] 36.02 kg/m2 Guille Abrams Other [employer] Other 02-19-2021 16:45-6801 Body weight 104.33 kg Guille Abrams Other [employer] Other Encounters Encounter Date Encounter Type Care Provider Facility Start: 11-16-2024 End: 11-16-2024 Patient encounter procedure Serg D Dolce DPM FACFAS Work Phone: [facility] Comment on above: Other synovitis and tenosynovitis, right ankle and foot (Primary Dx); Contracture of right ankle Start: 11-16-2024 End: 11-16-2024 ambulatory SERG D DOLCE Not Available Start: 11-16-2024 End: 11-16-2024 Bamboo flowsheet Serg D Dolce DPM FACFAS [facility] Start: 11-16-2024 End: 11-16-2024 Bamboo flowsheet Serg D Dolce DPM FACFAS [facility] Start: 10-26-2024 End: 10-26-2024 Postop follow up visit related to original px Serg D Dolce DPM FACFAS Work Phone: [facility] Comment on above: Other synovitis and tenosynovitis, right ankle and foot (Primary Dx) Start: 10-26-2024 End: 10-26-2024 ambulatory SERG D DOLCE Not Available Start: 10-26-2024 End: 10-26-2024 Bamboo flowsheet Serg D Dolce DPM FACFAS Work Phone: [facility] Start: 10-26-2024 End: 10-26-2024 Bamboo flowsheet Serg D Dolce DPM FACFAS [...] Serg D Dolce DPM FACFAS Work Phone: [facility] External Department Unsolicited Start: 10-03-2024 End: 10-03-2024 Clinisync Result Encounter Serg D Dolce DPM FACFAS Work Phone: [facility] External Department Unsolicited Start: 09-15-2024 Emergency department patient visit [facility] Facility:[facility] Start: 09-14-2024 End: 09-14-2024 Office outpatient visit 25 minutes Serg D Dolce DPM FACFAS Work Phone: [facility] Comment on above: Osteochondritis diss ecans of right ankle (Primary Dx); Solitary bone cyst of right foot; Other synovitis and tenosynovitis, right ankle and foot Start: 09-14-2024 End: 09-14-2024 ambulatory SERG D DOLCE Not Available Start: 09-14-2024 End: 09-14-2024 Bamboo [...] Start: 09-06-2024 End: 09-06-2024 Bamboo flowsheet Yared Joe Terrazas DPM Work Phone: [facility] Start: 09-06-2024 End: 09-06-2024 Bamboo flowsheet Yared Joe Terrazas DPM Work Phone: [facility] Start: 09-05-2024 End: 09-05-2024 ambulatory YARED Joe TERRAZAS Not Available Start: 08-29-2024 End: 08-29-2024 Office outpatient visit 15 minutes Yared Joe Terrazas DPM Work Phone: [facility] Comment on above: Sprain of anterior t alofibular ligament of right ankle, initial encounter (Primary Dx); Solitary bone cyst of right foot; Contracture of right ankle Start: 08-29-2024 End: 08-29-2024 ambulatory YARED Joe TERRAZAS Not Available Start: 08-29-2024 End: 08-29-2024 Bamboo flowsheet Yared Joe Brown DPM Work [...] POD Start: 07-17-2024 Emergency department patient visit [facility] Start: 12-17-2023 End: 12-17-2023 ambulatory [facility] Start: 12-17-2023 End: 12-17-2023 Subsequent hospital visit by physician Darrick Benitez MD Work Phone: [facility] Comment on above: H/O umbilical hernia repair (Primary Dx); S/P left inguinal hernia repair Start: 12-03-2023 End: 12-03-2023 ambulatory DARRICK A [facility] Start: 12-03-2023 End: 12-03-2023 Subsequent hospital visit by physician Darrick Benitez MD Work Phone: [facility] Start: 11-21-2023 End: 11-21-2023 Emergency department patient visit BARRY HOUSE [facility] Comment on above: Umbilical hernia wit hout obstruction and without gangrene (Primary Dx); Left inguinal hernia Start: 11-21-2023 End: 11-21-2023 Emergency department patient visit MD Barry House Work Phone: [facility] Work Phone: Start: 02-20-2023 End: 02-21-2023 ambulatory Miguelina R NILL Facility:[facility] Start: 02-20-2023 End: 02-20-2023 Patient encounter procedure Miguelina R NILL General Surgery Nill/Said [place] Start: 01-28-2023 End: 01-29-2023 ambulatory Miguelina R NILL Facility:[facility] Start: 01-28-2023 End: 01-28-2023 Patient encounter procedure Miguelina R NILL General Surgery N[facility] [place] Start: 01-14-2023 End: 01-15-2023 ambulatory Miguelina R NILL Facility: [place] Start: 01-13-2023 ambulatory Miguelina R NILL Facility :[id number] Start: 01-07-2023 End: 01-08-2023 ambulatory Miguelina R NILL Facility:[id number] Start: 12-23-2022 End: 12-24-2022 ambulatory Miguelina R NILL Facility: [place] Start: 12-23-2022 End: 12-23-2022 Patient encounter procedure Miguelina R NILL General Surgery [facility] [place] Start: 12-16-2022 End: 12-17-2022 ambulatory Miguelina R NILL Facility: [facility] Start: 12-11-2022 End: 12-12-2022 ambulatory Miguelina R NILL [facility] Start: 12-11-2022 End: 12-11-2022 Lab Drop off Miguelina R NILL [facility] Start: 12-11-2022 End: 12-11-2022 Patient encounter procedure Miguelina R NILL [facility] General Surgery [place] Start: 11-14-2022 End: 11-15-2022 ambulatory Miguelina R NILL Facility:[facility] Start: 11-11-2022 End: 11-12-2022 ambulatory Miguelina R NILL Facility:[facility] Start: 09-17-[address] BARRY HOUSE . Facili ty:[facility] Start: 09-02-2022 End: 09-03-[address] BARRY HOUSE . Facility:[facility] Start: 08-06-2022 End: 08-07-2022 ambulatory Miguelina R NILL Facility:[facility] Start: 08-06-2022 End: 08-06-2022 Patient encounter procedure Miguelina R NILL General Surgery N[facility]aid [facility] Start: 07-15-2022 ambulatory Miguelina R NILL Facility :[facility] Start: 07-09-2022 End: 07-10-[address] BARRY HOUSE . Facility:[facility] Start: 07-03-2022 End: 07-04-[address] BARRY HOUSE . Facility:[facility] Start: 05-15-2022 End: 05-15-[address] BARRY HOUSE . Facility:[facility] Start: 04-05-2022 Encounter for preprocedural laboratory examination DR JUSTINO DIAS . [facility] Start: 04-03-2022 End: 04-03-[address] BARRY HOUSE . Facility:[facility] Start: 03-31-2022 End: 04-01-[address] BARRY HOUSE . Facility:[facility] Start: 03-31-2022 End: 04-01-2022 Encounter for preprocedural laboratory examination DR BARRY HOUSE . Facility:[facility] Start: 03-24-2022 End: 03-25-[address] BARRY HOUSE . Facility:[facility] Start: 02-25-2022 End: 02-26-[address] JUSTINO DIAS . Facility:[facility] Start: 02-05-2022 End: 02-05-[address] JUSTINO DIAS . Facility:[facility] Start: 01-30-2022 End: 10-14-[address] BARRY HOUSE . Facility: Start: 02-19-2021 End: 02-19-2021 ambulatory Guille Abrams Other [employer] Other Start: 02-19-2021 Office outpatient ne w 30 minutes Guille Abrams [facility] Start: 02-19-2021 Telephone encounter Guille Diogocody [facility] Procedures Date Procedure Procedure Detail Performing Clinician Start: 10-03-2024 ALL CBC WITH AUTO DIFF Serg D Dolce DPM [facility]AC[facility]AS Work Phone: Start: 10-03-2024 ECG [...] Patterson MD Appendectomy Miguelina ROQUE section Miguelina Solano Cholecystectomy Miguelina ROQUE Colonoscopy Miguelina ROQUE Esophagogastroduodenoscopy Connie ROQUE Excision of cyst of ovary Danielle ROQUE History of repair of inguinal hernia S/P left inguinal hernia repair Darrick Benitez MD Work Phone: Laparoscopy Miguelina ROQUE Transcervical sterilization Miguelina KIRKLANDXiomara Plan of Treatment Date Care Activity Detail Author Start: 12-19-2024 Influenza vaccination [facility] Start: 12-07-2024 End: 12-07-2024 Patient encounter procedure 12/07/2024 4:20 PM EDT Office Visit [facility] [address] [place] [address] Serg Mata, DPM [facility] [address] [place] [address] [facility] Start: 11-16-2024 End: 11-16-2024 Patient encounter procedure [facility] Comment on above: Arrived Start: 11-07-2024 End: 11-07-2024 MR Foot - right WO contrast MR foot right wo IV contrast Imaging Routine Solitary bone cyst of right foot Expected: 11/07/2024, Expires: 11/07/2024 [facility] Work Phone: Comment on above: Expected: 11/07/2024 , Expires: 11/07/2024 Start: 10-26-2024 End: 10-26-2024 Patient encounter procedure [facility] Comment on above: Arrived Start: 10-19-2024 End: 10-19-2024 Patient encounter procedure 10/19/2024 4:10 PM EDT Office Visit [facility] [address] [place] [address] Serg Mata, DPM [facility]AC[facility]AS [address] [place] [address] Arrived [facility] Comment on above: Arrived Start: 10-18-2024 End: 10-18-[address] [facility] Start: 10-05-2024 End: 10-05-2024 Patient encounter procedure 10/05/2024 4:00 PM EDT Office Visit [facility] [address] [place] [phone] Serg Mata, DPM [facility] [address] [place] [address] [facility] Start: 09-14-2024 End: 09-14-2024 Patient encounter procedure 09/14/2024 4:20 PM EDT Office Visit [facility] [address] [place] [phone] Serg Mata, DPM FACFAS [address] [place] [address] Arrived [facility] Comment on above: Arrived Start: 09-06-2024 End: 09-06-2024 Patient encounter procedure 09/06/2024 3:30 PM EDT Office Visit [facility] [address] [place] [phone] Yared Terrazas DPM [address] [address] Sprain of anterior talofibular ligament of right [...] EDT Office Visit [facility] [address] [place] [phone] Yared Terrazas DPM [address] [address] Sprain of anterior talofibular ligament of right [...] EDT Office Visit [facility] [address] [place] [phone] Yared Terrazas DPM [address] [address] Arrived [facility] Comment on above: Arrived Start: 12-29-2023 End: 12-29-2023 Patient encounter procedure 12/29/2023 12:45 PM EDT Office Visit [facility] General Surgery [address] [place] [address] Post Op/ OPEN UMBILICAL HERNIA REPAIR, OPEN LEFT INGUINAL HERNIA REPAIR, MESH 12/03/2023 [facility] General Surgery Comment on above: Post Op/ OPEN UMBILI TAHMINA HERNIA REPAIR, OPEN LEFT INGUINAL HERNIA REPAIR, MESH 12/03/2023 Start: 12-17-2023 End: 12-17-2023 Admission to same day surgery center 12/17/2023 7:30 AM EDT - 12/17/2023 9:10 AM EDT Surgery [facility] [address] [place] [id number] [place] [address] [place] [address] OPEN UMBILICAL HERNIA REPAIR, OPEN LEFT INGUINAL HERNIA REPAIR, MESH [facility] Comment on above: OPEN UMBILICAL HERNI A REPAIR, OPEN LEFT INGUINAL HERNIA REPAIR, MESH Start: 12-17-2023 End: 12-17-2023 Rpr 1st ingun hrna age 4 yrs/> [facility] Start: 12-17-2023 Subsequent hospital visit by physician 12/17/2023 7:30 AM EDT Hospital Encounter [facility] [address] [place] [address] Darrick Benitez MD [address] [facility] [address] [place] [address] [facility] Start: 12-15-2023 End: 12-15-2023 Patient encounter procedure 12/15/2023 12:45 PM EDT Office Visit [facility] General Surgery [address] [facility] [address] [place] [address] Post Op/ OPEN UMBILICAL HERNIA REPAIR, OPEN LEFT INGUINAL HERNIA REPAIR, MESH 12/03/2023 [facility] General Surgery Comment on above: Post Op/ OPEN UMBILI TAHMINA HERNIA REPAIR, OPEN LEFT INGUINAL HERNIA REPAIR, MESH 12/03/2023 Start: 11-19-2023 Influenza vaccination Flu vaccine (# 1) [facility] Start: 02-23-2023 DTaP/Tdap/Td vaccine (2 - Td or Tdap) DTaP/Tdap/Td vaccine (2 - Td or Tdap) [facility] Start: 12-19-2022 COVID-19 Vaccine ( season) COVID-19 Vaccine ( season) [facility] Start: 11-07-2017 Screening for malignant neoplasm of cervix [facility] Start: 2014 Screening for malignant neoplasm of cervix [facility] Start: 12-15-2003 Hepatitis B vaccine (1 of 3 - 19+ 3-dose series) Hepatitis B vaccine (1 of 3 - 19+ 3-dose series) [facility] Start: 2002 Hepatitis C screening Hepatitis C sc reen [facility] Start: 12-15-1999 HIV screening HIV screen [facility] Start: 1997 Varicella vaccine (1 of 2 - 13+ 2-dose series) Varicella vaccine (1 of 2 - 13+ 2-dose series) [facility] Start: 1996 [facility] Start: 1985 Varicella vaccine (1 of 2 - 2-dose childhood series) Varicella vaccine (1 of 2 - 2-dose childhood series) [facility] Start: 06-16-1985 COVID-19 Vaccine (#1) COVID-19 Vacci ne (#1) [facility] Start: 1984 Hepatitis B vaccine (1 of 3 - 3-dose series) Hepatitis B vaccine (1 of 3 - 3-dose series) [facility] End: 12-17-2023 INITIATE PACU OXYGEN THERAPY PROTOCOL Initiate PACU Oxygen Therapy Protocol Respiratory Care Routine Continuous until discontinued starting 12/17/2023 [facility] Work Phone: Comment on above: Continuous until dis continued starting 12/17/2023 Immunizations Immunization Date Immunization Notes Care Provider Ama porras 09-13-2020 SARS-CoV-2 (COVID-19 ) mRNA-1273 vaccine Miguelina ROQUE General [facility] [place] 08-16-2020 SARS-CoV-2 (COVID-19 ) mRNA-1273 vaccine Miguelina ROQUE General [facility] 04-20-2020 SARS-CoV-2 (COVID-19 ) mRNA-1273 vaccine Miguelina ROQUE [facility] Comment on above: Result Comment: pt h as had 2 shots 02-03-2020 influenza virus vaccine, unspecified formulation Yared Terrazas DP Work Phone: [facility] NEGATED: Highlighted row has not occurred!08-06-2022 influenza virus vaccine, unspecified formulation Miguelina ROQUE General [facility] Payers Date Payer Category Payer Private Health Insurance [id number] 2024 Unknown [id number] 2023 Unknown [id number] 2023 Self-pay 1984 Unknown [id number] 2.16.84 0.1.081586.3.579.2.593 1984 Unknown [id number] 2.16.84 0.1.600806.3.579.2.593 1984 Unknown [id number] 2.16.84 0.1.444454.3.579.2.593 1984 Unknown [id number] 2.16.84 0.1.725557.3.579.2.593 1984 Unknown [id number] 2.16.84 0.1.125476.3.579.2.593 1984 Unknown [id number] 2.16.84 0.1.903725.3.579.2.593 1984 Unknown [id number] 2.16.84 0.1.837916.3.579.2.593 1984 Unknown [id number] 2.16.84 0.1.621652.3.579.2.593 1984 Unknown [id number] 2.16.84 0.1.098821.3.579.2.593 1984 Unknown [id number] 2.16.84 0.1.237499.3.579.2.593 1984 Unknown [id number] 2.16.84 0.1.550497.3.579.2.593 1984 Unknown [id number] 2.16.8 40.1.751426.3.579.2.727 1984 Unknown [id number] 2.16.8 40.1.471402.3.579.2.727 1984 Unknown [id number] 2.16.8 40.1.040198.3.579.2.727 1984 Unknown [id number] 2.16.8 40.1.724720.3.579.2.727 1984 Unknown [id number] 2.16.8 40.1.058723.3.579.2.727 1984 Unknown [id number] 2.16.8 40.1.368770.3.579.2.727 1984 Unknown [id number] 2.16.8 40.1.088608.3.579.2.727 1984 Unknown [id number] 2.16.8 40.1.762965.3.579.2.727 1984 Unknown [id number] 2.16.8 40.1.872786.3.579.2.727 1984 Unknown [id number] 2.16.8 40.1.475861.3.579.2.727 1984 Unknown [id number] 2.16.8 40.1.137628.3.579.2.727 1984 Unknown [id number] 2.16.8 40.1.931640.3.579.2.727 1984 Unknown [id number] 2.16. 840.1.533752.3.579.2.175 1984 Unknown [id number] 2.16. 840.1.024180.3.579.2.175 1984 Unknown [id number] 2.16. 840.1.228891.3.579.2.175 1984 Unknown [id number] 2.16.8 40.1.984162.3.579.2.718 1984 Unknown [id number] 2.16.8 40.1.582501.3.579.2.718 1984 Unknown [id number] 2.16.8 40.1.441941.3.579.2.1259 1984 Unknown [id number] 2.16.8 40.1.130789.3.579.2.1259 1984 Unknown [id number] 2.16.8 40.1.238878.3.579.2.1259 1984 Unknown [id number] 2.16.8 40.1.929899.3.579.2.1259 1984 Unknown [id number] 2.16.84 0.1.185814.3.579.2.9 1984 Unknown [id number] 2.16.84 0.1.773851.3.579.2.1258 1984 Unknown [id number] 2.16.84 0.1.652609.3.579.2.9 1984 Unknown [id number] 2.16.84 0.1.526779.3.579.2.1258 1984 Unknown [id number] 2.16.84 0.1.074136.3.579.2.1258 1984 Unknown [id number] 2.16.84 0.1.714492.3.579.2.1258 1984 Unknown [id number] 2.16.84 0.1.227256.3.579.2.1259 1959 Unknown [id number] 2. 16.840.1.289828.19 1959 Unknown [id number] Unknown [id number] 2.16.8 40.1.736194.3.579.2.531 Social History Date Type Detail Facility Unknown if ever smoked [facility] Other Start: 01-05-2016 End: 11-16-2024 Sex Assigned At [facility] Start: 08-06-2022 End: 12-16-2023 Tobacco smoking status Ex-smoker (finding) [facility] Tobacco smoking status Smokeless tobacco user within last 30 days [facility] [place] Start: 11-21-2023 Tobacco smoking status NHIS Smoker (finding) [facility] Start: 1985 Sex Assigned At Female [facility] History of tobacco use Cigarette Smoker [employer] Start: 08-17-2014 End: 08-08-2024 Tobacco use and exposure Smokeless tobacco non-user [employer] Start: 12-28-2014 End: 12-17-2023 Alcohol intake Current drinker of alcohol (finding) [facility] Start: 01-05-2016 End: 11-16-2024 History of Social function [facility] Start: 08-17-2014 End: 11-26-2023 Tobacco Comment quit 3 months ago [facility] Start: 01-20-2013 Alcohol Comment rarely [facility] Start: 1985 Sex Assigned At Not on file [facility] How often to you have a drink containing alcohol? Never [facility] Tobacco smoking status PAIS Tobacco smoking consumption unknown [facility] Start: 08-08-2024 Tobacco smoking status NHIS Smokes tobacco daily [facility] Start: 08-08-2024 End: 11-16-2024 Alcoholic beverage intake Ex-drinker (finding) [facility] NEGATED: Highlighted row [facility] Medical Equipment Procedure Code Equipment Code Equipment Origin al Text Equipment Identifier Dates ()[id number] FDA Start: 12-17-2023 Functional Status Date Assessment Result Facility 12-11-2022 Functional Status N/A [facility] [place] 08-06-2022 Functional Status N/A [facility] Clinical Notes 02-19-2021 to 11-16-2024 Serg D Dolce, DPM [facility] - 11/16/2024 4:10 PM EDTMarc D Dolce, DPM [facility] - 10/26/2024 4:00 PM EDTMarc D Dolce, DPM [facility] - 10/19/2024 4:10 PM EDTMarc D Dolce, DPM [facility] - 10/05/2024 4:00 PM EDT Note Date & Type Note Facility 11-16-2024 History of Present illness Narrative Images from the original note were not included. Patient: Tiara Parikh : 1985 PCP: Barry House MD SUBJECTIVE This is a 38 y.o. female that presents today The patient is here status post ankle arthroscopy right procedure. Postop week 4 They deny fevers, chills, nausea, vomiting, calf [...] walking 07-17-24 Hepatitis Plantar fasciitis Substance abuse ([facility] Medications: Current Outpatient Medications: Abilify 30 MG [...] < 3 seconds Digits 1-5 bilateral NEURO: [place] De[place] 5.07 monofilament was intact B/L. Vibratory sensation was intact B/L Musculoskeletal: Muscle strength was +5 over 5 all intrinsic and extrinsic muscles tested. Negative Homans test noted Surgical site evaluation: The incision site is healing well without signs infection. Minimal swelling noted. Consistent with the patient's level of surgery consistent with time frame postoperatively. Excellent range of motion of the ankle no pain doing very well no swelling ASSESSMENT 1. Other synovitis and tenosynovitis, right ankle and foot 2. Contracture of right ankle PLAN Patient is doing very well I recommended she convert from the pneumatic walking boot to ASO brace which was dispensed to her today. ASO, Gauntlet Brace, Prefabricated, ([id number]) was dispensed, fitted, and adjusted at this visit. The function of the device is to provide support, decrease edema, control motion at the ankle, and subtalar joints. It will redistribute pressure and allow more comfortable weight-bearing and better support. It is for increased stability of the ankle joint and subtalar joint. The device is medically necessary for the condition, symptoms and diagnosis. The patient was educated as to proper use and care, and this was reviewed in detail. Written instructions and warranty information were given with the device. The current supplier standards were given to the patient. Serg Mata DPM [facility]AS documented in this encounter [facility] 10-26-2024 History of Present illness Narrative Images from the original note were not included. Patient: Tiara Parikh : 1985 PCP: Barry House MD SUBJECTIVE This is a 38 [...] walking 07-17-24 Hepatitis Plantar fasciitis Substance abuse ([facility]) Medications: Current Outpatient Medications: Abilify 30 MG [...] < 3 seconds Digits 1-5 bilateral NEURO: [place] Deja 5.07 monofilament was intact B/L. Vibratory [...] she is doing very well continue with [id number] exercises RAJEEV Bazzi documented in this encounter [facility] 10-19-2024 History of Present illness Narrative Images from the original note were not included. Patient: Tiara Parikh : 1985 PCP: Barry House MD SUBJECTIVE This is a 38 [...] walking 07-17-24 Hepatitis Plantar fasciitis Substance abuse ([facility]) Medications: Current Outpatient Medications: Abilify 30 MG [...] < 3 seconds Digits 1-5 bilateral NEURO: [place] 5.07 monofilament was intact B/L. Vibratory [...] Guidelines. RAJEEV Bazzi documented in this encounter [facility] 10-12-2024 Telephone encounter Note The prescription has been sent to the pharmacy. Thank you. [facility] 10-12-2024 Miscellaneous Notes The prescription has been sent to the pharmacy. Thank you. documented in this encounter [facility] 10-05-2024 History of Present illness Narrative Patient: Tiara Parikh : 1985 PCP: Barry House MD SUBJECTIVE This is a 39 [...] walking 07-17-24 Hepatitis Plantar fasciitis Substance abuse ([facility]) Medications: Current Outpatient Medications: Abilify 30 MG [...] procedure. RAJEEV Bazzi documented in this encounter [facility] 09-15-2024 Note Education Materials Infectious Disease Incision and Drainage, Care After After incision and drainage, it is common to have: ? Pain or discomfort around the incision site. ? Blood, fluid, or pus (drainage) from the incision. ? Redness and firm skin around the incision site. Follow these instructions at home: Medicines ? Take ufam-zad-junxrdz and prescription medicines only as told by [...] and water are not available, use hand dry clipper tender. ? Change your dressing and any packing [...] provider. Document Revised: 11/24/2022 Document Reviewed: 11/24/2022 [employer] Patient Education ? [facility] Telephone encounter Note Phone #: [phone] Insurance: Payor: [employer] / Plan: [employer] [facility] [employer] / Product Type: *No Product type* / Preferred Date/Time: First Available [x] ADRIANNA [] Patient Name: Tiara Parikh : 1985 Surgeon: Dr. Serg Mata [x] Dr. Richard Mata [] Location: [facility] [x] [facility] [place] [facility] [] Procedure(s): ankle arthroscopy [id number] CPT Code(s): 41643 Diagnosis: No diagnosis found. Procedure Time: 30 [...] Walker [] Knee Scooter [] PCP Clearance: Barry House MD Other Clearance: Cardiology [] Rheumatology [] Other [] [facility] Work Phone: 09-14-2024 Miscellaneous Notes Phone #: [phone] Insurance: Payor: [employer] / Plan: [employer] [facility] [employer] / Product Type: *No Product type* / Preferred Date/Time: First Available [x] ADRIANNA [] Patient Name: Tiara Parikh : 1985 Surgeon: Dr. Serg Mata [x] Dr. Richard Mata [] Location: [facility] [x] [facility] [] [facility] [] Procedure(s): ankle arthroscopy [id number] CPT Code(s): 50022 Diagnosis: No diagnosis found. Procedure Time: 30 [...] Walker [] Knee Scooter [] PCP Clearance: Barry House MD Other Clearance: Cardiology [] Rheumatology [] Other [] documented in this encounter [facility] 09-14-2024 History of Present illness Narrative Patient: Tiara Parikh : 1985 PCP: Barry House MD SUBJECTIVE This is a 39 [...] procedure. RAJEEV Bazzi documented in this encounter [facility] 09-06-2024 History of Present illness Narrative Patient: Tiara Parikh : 1985 PCP: Barry House MD SUBJECTIVE This is a 39 [...] Yared Terrazas DPM documented in this encounter [facility] 08-29-2024 History of Present illness Narrative Patient: Tiara Parikh : 1985 PCP: Barry House MD SUBJECTIVE This is a 39 [...] Yared Terrazas DPM documented in this encounter [facility] 08-08-2024 History of Present illness Narrative Patient: Tiara Parikh : 1985 PCP: Barry House MD SUBJECTIVE This is a 39 [...] Yared Terrazas DPM documented in this encounter [facility] 07-17-2024 Note Education Materials Orthopedics Foot [...] on your foot. General instructions ? Take [id number] and prescription medicines only as told by your health care provider. ? When you can walk without pain, w (more content not included)... [facility] 12-17-2023 Hospital Discharge instructions Johnathon Booth [...] call your doctor documented in this encounter [facility] 12-03-2023 History of Present illness Narrative Patient very upset. Did not wait for indefinite amount of time for surgery time.Lead RN notified and during notification of warehouse team leader, patient removed own iv and stormed out of unit cussing. documented in this encounter [facility] 12-03-2023 Hospital Discharge instructions Emma Smith MD [...] at 8pm, etc.). If prescribed narcotic medications ([place], Percocet, or Roxicodone), use for breakthrough pain and attempt to wean off medications as soon as possible. Do not take more than 4000mg tylenol in 24 hours. SPECIAL INSTRUCTION: Call the office at [phone] if you develop fevers, chills, uncontrolled nausea, vomiting. Monitor incisions for signs of redness or green discharge. Please follow-up in approximately 2 weeks after surgery for your postop evaluation. Office Address: [address] [place], [place] [id number] documented in this encounter [facility] 11-21-2023 Hospital Discharge instructions Favio Devlin DO [...] cannot be sent through Care Everywhere.Inguinal Hernia (Ivorian)documented in this encounter [facility] 12-13-2022 Note Microbiology PROCEDURE: Wound Culture [R1] [...] Locations R1: This test was performed at: [facility], [address] [place] [address], [address]- , , [facility] Comment on above: Performed By: #### [id number] ####[facility] [id number] [place] [id number] 12-11-2022 Note Chief Complaint consultation for recurrent breast abscess HPI Staff Presents with complaint of recurrent breast abscess. Reports she developed redness and pain on Thursday. She presented to [facility] ED Thursday and was given prescriptions for [...] Patient Refuses DALIA (more content not included)... [facility] Comment on above: Result Comment: Elec tronically [...] authenticated by: DARRICK GIBBS Date: 2022-09-02 10:54 [facility] 08-06-2022 Note Chief Complaint consultation for left [...] Crohn's disease Depression (more content not included)... [facility] Comment on above: Result Comment: Elec tronically Signed By: MYA TEMPLE, Miguelina Esquivel.br\Date and Time Signed: 08/06/22 21:16 EDT 04-03-2022 Note OPERATIVE NOTE OPERATION DATE: 04/03/2022 PROCEDURE: Diagnostic laparoscopy with left ovarian cystotomy. PREOPERATIVE DIAGNOSIS: Pelvic pain. POSTOPERATIVE DIAGNOSIS: Pelvic pain. ANESTHESIA: General. SURGEON: Justino Dias D.O. CHILD DAY CARE PROVIDER: SAMMY Phillips URINE OUTPUT: Yellow and clear. [...] in stable condition. ? [facility] 02-19-2021 Evaluation note Encounter Date [...] TESTING Q 4 WEEKS WHILE ON THERAPY [facility] Other 11-02-2021 Evaluation note* Encounter Date Diagnosis Assessment Notes Treatment Notes Treatment Clinical Notes Feb, Hepatitis C (ICD-10 - B19.20) [facility] Other Evaluation + Plan note No data available for this section General Surgery [place] Evaluation + Plan note Future Appointments Appointment Date:12/16/2022 04:00:00 PM Scheduled Provider:Miguelina ROQUE MD Location:[facility] Appointment Type:[address] General Surgery [place] Evaluation + Plan note Future Appointments Appointment Date:12/16/2022 04:00:00 PM Scheduled Provider:Miguelina ROQUE MD Location:[facility] Appointment Type:GS Established 15 Diagnostic Tests Pending * [facility]ments Appointment Date:02/04/2023 01:00:00 PM Scheduled Provider:Miguelina ROQUE MD Location:[facility] Appointment Type: Post Op 15 General Surgery Isaac Evaluation noteNo assessment information available [facility] Work Phone: Evaluation note* Diagnosis Umbilical hernia without obstruction and without gangrene- Primary Left inguinal hernia Inguinal hernia without mention of obstruction or gangrene, unilateral or unspecified, (not specified as recurrent) documented in this encounter 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 [facility] Diagnosis Sprain of anterior talofibular ligament of right ankle, initial encounter- Primary 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 [facility] Diagnosis Sprain of anterior talofibular ligament of right ankle, initial encounter- Primary Contracture of right ankle 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 [facility] Diagnosis Osteochondritis dissecans of right ankle- Primary Solitary bone cyst of right foot Other synovitis and tenosynovitis, right ankle and foot [facility] Diagnosis Osteochondritis dissecans of right ankle- Primary Other synovitis and tenosynovitis, right ankle and foot [facility] Diagnosis Other synovitis and tenosynovitis, right ankle and foot- Primary [facility] Diagnosis Other synovitis and tenosynovitis, right ankle and foot- Primary Contracture of right ankle [facility] Diagnosis Other synovitis and tenosynovitis, [...] History EGD 2009 Hospitalization History See Above [facility] Other Hospital Discharge instructions No data available for this section General Surgery Isaac Progress note No data available for this section General Surgery LookMed[employer] Summary Purpose Family History No Family History [...] side without obstruction or gangrene [K40.90] Procedures SD RPR 1ST INGUN HRNA AGE 5 YRS/> REDUCIBLE SD RPR AA HERNIA RECR < 3 CM NCRC8/STRANGULATED OPEN UMBILICAL HERNIA REPAIR, OPEN LEFT INGUINAL HERNIA REPAIR, MESH Darrick Benitez MD [address] [place] [address] [facility] [address] [place] [address] Referral ID Status Reason Start Date Expiration Date Visits Re quested Visits Authorized [id number] 1 1 Specialty Diagnoses / Procedures Referred By Shala t Referred To Contact Diagnoses Umbilical hernia without obstruction and without gangrene Inguinal hernia without obstruction or gangrene, recurrence not specified, unspecified laterality Umbilical hernia without obstruction and without gangrene [K42.9] Inguinal hernia without obstruction or gangrene, recurrence not specified, unspecified laterality [K40.90] Procedures SD RPR 1ST INGUN HRNA AGE 5 YRS/> REDUCIBLE SD RPR AA HERNIA RECR < 3 CM NCRC8/STRANGULATED OPEN UMBILICAL HERNIA REPAIR, OPEN LEFT INGUINAL HERNIA REPAIR, MESH Darrick Benitez MD [address] [place] [address] [facility] [address] [place] [address] Referral ID Status Reason Start Date Expiration Date Visits Re quested Visits Authorized [id number] 1 1 Reason Comments Ankle Pain RT ANKLE Reason Comments Follow-up Reason Comments Follow-up Mri results Reason Comments Ankle Pain Discuss ankle instab ility surgery Reason Comments Consent Or Instructions Surgery consult for RT ankle Reason Comments Foot/ankle Post-op WK 1 post op Reason Comments Foot/ankle Post-op Week 2 Post op Reason Comments Foot/ankle Post-op WK 5 post op Patient Care team informatio n (unrecognized section and content) Team Status: Active Member Role Status Dates Barry House MD Primary Care Provider Active Team Status: Inactive Member Role Status Dates Barry House MD Primary Care Provider Active Start: November 21, 2023 End: November 21, 2023 Walter Guillaume DO Emergency Provider Active St art: November 21, 2023 End: November 21, 2023 Riverboat Master Relationship Specialty Start Date End Date Barry House MD [address] [place] [id number] PCP - General 01/06/13 Riverboat Master Relationship Specialty Start Date End Date Barry House MD [address] [place] [address] PCP - General 01/06/13 Riverboat Master Relationship Specialty Start Date End Date Barry House MD [address] [place] [address] PCP - General 01/06/13 Riverboat Master Relationship Specialty Start Date End Date Unallocated, Noms MD Susannah [address] [facility] [place] [address] PCP - General Family Medicine 08/08/24 Riverboat Master Relationship Specialty Start Date End Date Barry House MD [address] [place] [address] PCP - General Family Medicine 08/08/24 Riverboat Master Relationship Specialty Start Date End Date Barry House MD [address] [place] [address] PCP - General Family Medicine 08/08/24 Riverboat Master Relationship Specialty Start Date End Date Barry House MD [address] [place] [address] PCP - General Family Medicine 08/08/24 Riverboat Master Relationship Specialty Start Date End Date Barry House MD [address] [place] [address] PCP - General Family Medicine 08/08/24 Riverboat Master Relationship Specialty Start Date End Date Barry House MD [address] [place] [address] PCP - General Family Medicine 08/08/24 Riverboat Master Relationship Specialty Start Date End Date Barry House MD [address] [place] [address] PCP - General Family Medicine 08/08/24 Riverboat Master Relationship Specialty Start Date End Date Barry House MD [address] [place] [address] PCP - General Family Medicine 08/08/24 Riverboat Master Relationship Specialty Start Date End Date Barry House MD [address] [place] [address] PCP - General Family Medicine 08/08/24 Riverboat Master Relationship Specialty Start Date End Date Barry House MD [address] [place] [address] PCP - General Family Medicine 08/08/24 INFORMATION SOURCE (unrecogn ized section and content) DATE CREATED AUTHOR 09/26/2022 [facility] DATE CREATED AUTHOR AUTHOR'S ORGANIZ ATION 02/22/2023 [facility] DATE CREATED AUTHOR AUTHOR'S ORGANIZ ATION 12/05/[address] [facility] DATE CREATED AUTHOR AUTHOR'S ORGANIZ ATION 12/31/2023 [facility] DATE CREATED AUTHOR AUTHOR'S ORGANIZ ATION 09/25/2024 [facility] DATE CREATED AUTHOR AUTHOR'S ORGANIZ ATION 11/18/2024 [facility] EPIC Goals (unrecognized section [...] mg from all sources in 24 hours. 1944 (Given - Provid er: Mireille Byrne LPN) [...] order., PACU only BUPivacaine-EPINEPHrine PF (MARCAINE-w/EPINEPHrine) 0.5% -1:222297 injection (CANCELED) PRN, Starting on Amara 12/17/23 [...] Inhalation, ONCE PRN, 1 dose, Starting on Thu12/17/23 at 0944, Until Thu12/18/23 at 0944, Shortness [...] BE BASED ON THE PRIMARY CLINICAL RECORDS. [facility]. provides no warranty or guarantee of the accuracy or completeness of information in this document.
== END 2024-11-30 12:37 | disposition home or self-care (01) ==
LOC: US 12:36
PROVIDERS: PCP Family Medicine; Visit Provider Family Medicine
DX: R60.9 Edema, unspecified (principal); R60.0 Localized edema
CPT/HCPCS: 93970

== ENCOUNTER 2024-12-26 08:59 | Outpatient (OUT) | payer OTHER, SELFPAY ==
--- NOTE | 2024-12-26 09:00 | CA_ITS ---
Patient Name: MAURY FRIED MR#: [id number] : 1985 Exam Date: 12/26/2024 Ordering Doctor: DR SHERIN VALDOVINOS . ECHOCARDIOGRAM REPORT PROCEDURE: CA ECHO DOPPLER COMPLETE INDICATIONS: Edema, smoker COMPARISON: None. DESCRIPTION: COMPLETE ECHOCARDIOGRAM Real-time transthoracic echocardiography with 2D, M-mode, spectral and color flow Doppler performed. QUALITY: Technical quality was good. LEFT VENTRICLE: Normal chamber size. Normal left ventricular wall thickness. Calculated left ventricular ejection fraction is 62%. LV EF: Global left ventricular systolic function is normal; visually estimated ejection fraction is 60 to 65%. No significant wall motion abnormalities. DIASTOLIC: Normal diastolic function. ATRIAL SEPTUM: Visually appears intact. LEFT ATRIUM: Normal chamber size. RIGHT ATRIUM: Normal chamber size. RIGHT VENTRICLE: Normal chamber size. Normal right ventricular systolic function. TRICUSPID VALVE: Normal mobility and thickness. No stenosis with trivial regurgitation. Doppler studies reveal mildly (35-45) elevated right sided pressures. RVSP 37 mmHg MITRAL VALVE: Normal mobility and thickness. No evidence of mitral valve stenosis. There is no mitral annular calcification. No mitral regurgitation. AORTIC VALVE: Normal trileaflet appearance. No visible sclerosis. Normal leaflet mobility. No evidence of aortic valve stenosis. No aortic regurgitation. AORTIC ROOT: Normal diameter and appearance. PULMONIC VALVE: Normal thickness and mobility. No stenosis. No regurgitation. PERICARDIUM: No evidence of pericardial effusion. IVC: Collapses with inspiration. IVC is dilated (2.5 cm) CONCLUSION: 1. Global left ventricular systolic function is normal; visually estimated ejection fraction is 60 to 65% 2. Normal right ventricular size and systolic function 3. The left atrium is normal in size 4. Normal diastolic function 5. No significant valvular abnormalities Adult Echocardiography Procedure Report Left Ventricle LVEDD (3.7 - 5.6 cm): 5.20 cm LVESD (2.2 - 4.0 cm): 3.04 cm LVIVS thickness (0.6 - 1.2 cm): 0.87 cm LVPW thickness (0.5 - 1.0 cm): 1.02 cm e': 0.17 m/s E - e': 7.02 LVOT Max Gradient: 4.69 mm[Hg] LVOT Area (cm2): 1.08 m/s Peak Velocity (LVOT): 1.08 m/s LVOT Diameter 2.04 cm Left Ventricular Ejection Fraction: 61.56 % Left Atrium LA Volume Index (2D A2C): 34.81 ml/m2 Left Atrium Systolic Dimension: 4.75 cm Mitral Valve MV E to A Ratio: 1.24 Mitral Valve A-Wave Peak Velocity: 0.94 m/s Mitral Valve E-Wave Peak Velocity: 1.16 m/s Right Ventricle Aorta AO Root Diam: 3.02 cm Aortic Valve AoV Area (Peak Dustin): 2.35 cm2, 2.35 cm2 Peak Velocity(Antegrade Flow): 1.51 m/s Peak Gradient(Antegrade Flow): 9.09 mm[Hg] Tricuspid Valve Peak Velocity (Regurgitant Flow): 2.69 m/s Pulmonic Valve Peak Gradient: 5.77 mm[Hg], 5.46 mm[Hg] Right Atrium Right Atrium Systolic Pressure: 56.91 ml, 56.91 ml Dictated by: Jony Cedeño M.D. on 12/27/2024 at 10:03 Approved by: Jony Cedeño M.D. on 12/27/2024 at 10:06
--- OUTSIDE RECORDS SUMMARY | 2024-12-26 09:15 | XMS_ITS | CCD ---
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 MD Primary Care Provider [phone] Barry House MD Primary Care Provider [phone] BARRY HOUSE Primary Care Unavailable David Rayo Attending Unavailable David Rayo Admitting Unavailable BARRY HOUSE Primary Care Unavailable David Rayo Attending Unavailable YARED TERRAZAS Attending Unavailable YARED TERRAZAS Referring Unavailable YARED TERRAZAS Referring Unavailable YARED TERRAZAS Attending Unavailable YARED TERRAZAS Referring Unavailable YARED TERRAZAS Attending Unavailable DOLCE, SERG Dempsey Attending Unavailable DOLCE, SERG Dempsey Attending Unavailable DOLCE, SERG Dempsey Attending Unavailable DOLCE, SERG Dempsey Attending Unavailable DOLCE, SERG D Attending Unavailable DOLCE, SERG D Attending Unavailable Allergies Allergy Classification Reported Allergen(s) Allergy Type Date of Onset Reaction(s) Facility (2 sources) Acetaminophen Drug Allergy Unknown [employer] Other (12 sources) Amitriptyline; Translations: [Amitriptyline] Drug Allergy 11-07-19 13 Eruption of skin (disorder) [facility] (12 sources) Cephalexin; Translations: [cephalexin] Drug Allergy 10-06-19 18 Unknown, Rash [facility] [place] (9 sources) Desvenlafaxine; Translations: [desvenlafaxine] Drug Allergy 11-21-19 24 rash, Eruption of skin (disorder) [facility] (13 sources) Erythromycin; Translations: [erythromycin] Drug Allergy 06-08-19 13 rash, Anaphylaxis (disorder) [facility] (3 sources) Ibuprofen Drug Allergy 11-21-19 24 vomiting [facility] (13 sources) NSAIDs; Translations: [Non-steroidal anti-inflammatory agent (substance)] Propensity to adverse reactions 09-07-19 13 Anaphylaxis (disorder) [facility] (6 sources) Propranolol Drug Allergy 09-07-19 13 rash [facility] (3 sources) Sulfacetamide Drug Allergy 11-21-19 24 Unknown, Unknown Reaction [facility] (10 sources) Sulfamethoxazole / Trimethoprim; Translations: [sulfamethoxazole-t rimethoprim] Drug Allergy 10-06-19 18 Unknown [facility] (9 sources) Morphine; Translations: [morphine] Drug Allergy 10-06-19 18 Unknown [facility] (9 sources) pregabalin; Translations: [pregabalin] Drug Allergy 10-07-19 18 Swelling [facility] [place] (7 sources) topiramate; Translations: [topiramate] Drug Allergy Unknown (qualifier value) [facility] [place] (1 source) Acetaminophen Drug Allergy [facility] (2 sources) Amitriptyline Drug Allergy 11-21-19 Unknown Reaction [facility] Rep[facility] (2 sources) Cephalexin; Translations: [Keflex] Drug Allergy [facility] (4 sources) Desvenlafaxine; Translations: [Pristiq] Drug Allergy 11-07-19 13 [facility] (2 sources) Ketorolac; Translations: [Toradol] Drug Allergy [facility] (2 sources) NSAIDs Drug allergy (disorder) 11-07-19 13 [facility] (2 sources) pregabalin Drug Allergy 11-06-19 17 [facility] (2 sources) Sulfamethoxazole / Trimethoprim; Translations: [Bactrim] Drug Allergy [facility] (2 sources) E.E.S. Drug allergy (disorder) 11-07-19 13 [facility] (1 source) Sulfamethoxazole / Trimethoprim; Translations: [sulfamethoxazole-t rimethoprim] Drug Allergy 10-06-19 18 [facility] Repository (1 source) Tylenol Regular Strength; Translations: [Tylenol Regular Strength] Propensity to adverse reactions (disorder) [facility] (2 sources) Doxycycline; Translations: [doxycycline] Drug Allergy 11-21-19 blisters [facility] (2 sources) Sulfamethoxazole; Translations: [sulfamethoxazole] Drug Allergy 11-21-19 [facility] (2 sources) Sulfonamides (Antibiotic); Translations: [Sulfa (Sulfonamide Antibiotics)] Allergy to substance 11-21-19 [facility] (2 sources) Trimethoprim; Translations: [trimethoprim] Drug Allergy 11-21-19 [facility] (2 sources) erythromycin base; Translations: [erythromycin base] Allergy to substance 11-21-19 Vomiting, rash [facility] (2 sources) NSAIDS (Non-Steroidal Anti-Inflamma; Translations: [NSAIDS (Non-Steroidal Anti-Inflamma] Allergy to substance 11-21-19 Anaphylaxis [facility] (1 source) Amitriptyline Drug Allergy 11-21-19 [facility] (1 source) Cephalexin Drug Allergy 11-21-19 [facility] (1 source) Desvenlafaxine Drug Allergy 11-21-19 [facility] (1 source) Ibuprofen Drug Allergy 11-21-19 [facility] (1 source) Propranolol Drug Allergy 11-21-19 [facility] (1 source) Sulfacetamide Drug Allergy 11-21-19 [facility] (3 sources) Amitriptyline Drug Allergy 09-07-[address] [facility] (3 sources) Desvenlafaxine Drug Allergy 01-21-[address] [facility] (2 sources) Ketorolac Drug Allergy 10-07-[address] [facility] (1 source) Acetaminophen; Translations: [Tylenol] Drug Allergy [facility] Repository Medications Current Medications Medication Drug [...] day(s), # 28 cap(s), Refills(s) 1, [facility]: [id number], 167, cm, 12/11/22 14:03:00 EDT, Height/Length Dosing, [...] Daily, # 30 tab(s), Refills(s) 11, Pharmacy: [address], 170, cm, 05/27/21 12:27:00 EST, Height/Length [...] q8hr, # 6 tab(s), Refills(s) 0, Pharmacy: [facility]/pharmacy #[id number] Start Date: 11/12/16 Status: Ordered Completed/Discontinued [...] 500 mg by mouth 4 times daily 11 07/27/2014 11/30/2023 Discontinued (Therapy completed) pantoprazole 40 [...] Onset: 09-02-2022 Episodic Other connective tissue disease (14 sources) Synovitis and tenosynovitis; Translations: [Other synovitis [...] 05-16-2022 Episodic Other aftercare (1 source) Other correction (current) drug therapy; Translations: [[facility] CURRENT DRUG THERAPY] Onset: 04-07-2022 Episodic Other [...] WITH AUTO DIFFon BASOPHILS ABSOLUTE AUTO 0 [facility] Basophils/100 WBC (Bld) 0.3 % 0.2 - 2.0 % [facility] Eosinophils/100 WBC (Bld) 2.1 % 0.9 - 7.0 % [facility] Erythrocyte distribution width (RBC) [Ratio] 11.9 % 11.0 - 15.0 % [facility] Hematocrit (Bld) [Volume fraction] 40 % 36.0 - 48.0 % [facility] Hemoglobin (Bld) [Mass/Vol] 13.5 g/dL 12.0 - 16.0 g/dL [facility] IMMATURE GRANULOCYTES ABS AUTO 0 [facility] Immature granulocytes/100 WBC (Bld) 0 % 0.0 - 0.5 % [facility] LYMPHOCYTES ABSOLUTE AUTO 1.5 [facility] Lymphocytes/100 WBC (Bld) 25 % 20.5 - 60.0 % [facility] MCH (RBC) [Entitic mass] 30.5 pg 26.7 - 34.0 pg [facility] MCHC (RBC) [Mass/Vol] 33.8 g/dL 29.9 - 35.2 g/dL [facility] MCV (RBC) [Entitic vol] 90.5 fL 81.0 - 99.0 fL [facility] MONOCYTES ABSOLUTE AUTO 0.3 [facility] Monocytes/100 WBC (Bld) 4.8 % 1.7 - 12.0 % [facility] NEUTROPHILS ABSOLUTE AUTO 4 [facility] Neutrophils/100 WBC (Bld) 67.8 % 43.0 - 75.0 % [facility] Platelet mean volume (Bld) [Entitic vol] 10.6 fL 9.5 - 13.5 fL [facility] TBH EO # 0.1 [facility] PLT 199 [facility] RBC 4.42 [facility] WBC 5.8 [facility] ECG 12-LEADon 10-03-2024 [place] [address] Electrocardiograph Report Signed Patient: TIARA PARIKH MR#: [id number] : 1985 Acct:[id number] Age/Sex: 38 / F ADM Date: 10/03/24 Loc: CARD Attending Dr: SERG MATA M.D. Ordering Physician: SERG MATA M.D. 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 Measurements Intervals [place] Rate: 77 P: 59 SD: 144 QRS: 72 QRSD: 102 T: 56 QT: 381 QTc: 431 Interpretive Statements SINUS RHYTHM Normal ECG Compared to ECG 10/14/2020 21:25:35 No significant changes Electronically Signed On 10-03-2024 13:22:02 EDT by ANJEL GILBERT M.D. Dictated By: ANJEL GILBERT Signed By: 10/03/24 1322 DD/ 1153 TD/TT: Executive Kitchen Manager: [facility] Radiology, Radiologist, - 10/03/2024 [facility] [place] [id number] Electrocardiograph Report Signed Patient: TIARA PARIKH MR#: [id number] : 1985 Acct:[id number] Age/Sex: 38 / F ADM Date: 10/03/24 Loc: CARD Attending Dr: SERG MATA M.D. Ordering Physician: SERG MATA M.D. 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 Measurements Intervals [place] Rate: 77 P: 59 SD: 144 QRS: 72 QRSD: 102 T: 56 QT: 381 QTc: 431 Interpretive Statements SINUS RHYTHM Normal ECG Compared to ECG 10/14/2020 21:25:35 No significant changes Electronically Signed On 10-03-2024 13:22:02 EDT by ANJEL GILBERT M.D. Dictated By: ANJEL GILBERT Signed By: 10/03/24 1322 DD/ 1153 TD/TT: Executive Kitchen Manager: [facility] Radiology Study observation (narrative) [facility] ECG 12-LEADOrdered By: Radio logist Radiology on 10-03-2024 [facility] [employer] Work Phone: Coding Summaryon 09-23-2024 Coding Summary HTMLBase 64 NppmoefzAQq5aMx+PGhlYW Q+OK5WPVUiO45fiBBfbN5t T0IRJChPRqmbGJJUZMhECf SmutMbEB7kkBPvNFEh IC8+PN5cXDMgIbtrqCRel6 E7rFZ4S61kxs5fMVhlrXU2 XPSeJaGvgddyc8ngnMx6ZM cuNmluOyBt YBNafA35WHQ5nD42Eq98hL MwlEMvq3oagNy8ZgWaLVYh KKZ6rKzkFGiol2ZnPGWqV8 3rtXExk5W2 GQAobXlicLFrTrAevUB4rS 5cSBuehankx4uuyywxVfm3 og83pYMqm9T1vJW4I8Nyej P4FHOqcRHx BpakhHISwD2bipxrh4dnbo bgOzClHPPdUVp0JCk8XMDo fVzpWdNpVE03EHW2RLQzex QlR4XkHKKc uHlaSkP5w3J3Hr1AO9NKSx rlV1OCBOYCXGdajUN+PC90 ce62D0QjZmbaZby2TYAxNF I6cDU4wZ4a LTYeGBkqw9P9jEX3Z4Aiqt Knzd8dy9kgXTZuFHnuW53j dVQym4Y1LNCclOV6TZCbdF ueJmTlnN54 Oyc+ICTtoUobb7SkXxzyy7 zyg6truEf3WggmEMGitoQl eVmtSTW7m1XtEb8lSVZbwT T3aAZ7jU8q LkMgAiC8NPqsU383DsRqjP BzIkvkV02yX8RovMM+PHRy Jyr5LTNtiRfoMZ8mN6NxPS RpbmctbGVm tMnjTI8iRYTmlrwzQCOkmY 7gWBRgZ5q6QvJuAyU6HAme Q4FnUJNwifkgDr04mF1kFn XrLlE2KTgz S3KgnpO0TFObhIXuTAdlYC I4T74zs4R4IYDtILHbZME8 wJA4oH7dkXdmasoqhHKehR sgdmVydGlj LQmyRZcfG231NGSbcPhgOx NvZGluZyBEYXRlOiAgMDYv MDYvMjAyNTwvdGQ+PHRkIH X5kXwrUKXs gKNfBXcpTw4yaOoevLgwJY 5rZJIabmewQVIvbV5fCPWf oJYstRwcXJ0wSSPromebh9 94HhHmVNL4 ZGWucVMeH2XpzZ3iWsLuBL FdLTTzT6MsqVEcTFqdP413 AQqpHzM3PNTnsaUuM3XlWY FsaWduOiB0 w5R2Is1Cd0UohudeQ0NwlJ OmSpXbUnhiYIr8V3CrBwim dHI+ID43IUHmYA26ABh4KP F2sFjyQQgq HSDiD1NnpZ9gVxBqRBYlQF RkOyc+PHRhYmxlIHdpZHRo WDrdHBZzUqQpcElpOR2cWf 9yZGVyLWNv xMpytCJaGjGhe1vpKRRjGV nuBU2gbLfyX5PzjXV9QRNz a0v2Lp16X13bW9UqmCQ+PG NbuWR7gZU0 tT6aJmGhCoE3HScmL188Ui MxmQNsXikgy6kok9mumJt2 GeL4WANlfjTtyQmcAWP3i5 OcDp53L22d IHdpZHRoPSIxNSUiIHZhbG yjjb1uyL8zBs6+PGNvbCB3 yBX0pC2nXoIaXzT4BFplO0 49InRvcCIv Mbxff8acd2hxaDh3HiVeQE LdptSosRjzMCM3e8GiXu24 G5IhjEiwn1MbEbr4wb41qO Rcs8O8lAP6 Z5AjYSMocvaatYChcEapUL 8nPOMuqtfaJMKxxZ6jRMIe P0w0XzUeYyL3AUwyZ7Suow T8AJSeoQDy KVJfpXYCtX5vadvxw0bzgu kqUuCsFUYbWWs0PPu8PXEo sTacSjSuITX0GuC1ARB0xZ KvfC7jxFnv tjcvaE6bFum+PEB8tTExmU ALIN1pOkewoHL+PHRkIHN0 yXjaNYttZHKsgT3iDMLcQ4 l8FzDfDpM0 LQxmY0TttzG6XUFcjKXgZS YrkXXJoK8myklcr5wpruyp NwByEAVlZUp1RKs0CQSmrT duOiBsZWZ0 OmX6RYL5lAVwgV1haTdyua kxxO5hPuh+QmlydGggRGF0 UWf8W8UrXfx8CLFveWjlKG 0ncGFkZGlu Gi5qvGbknNykOF6qSHFhzg mxa144PoLjg2xaKJXyqUCs NPgbCXB2H74ry0L2SXRfRX UtDTC0wJP4 lU4mkRbgsegxuSXjbFanfv ZjjPelIBeqAHexF318PHLl lBxkRrWoTTk2S3LdDtz5QK OlrBftLK1r cWWyBLuhEo2rmWfwaBmsZP 1rQSCllpytu946UjLdn7ft VMUxcZHkFPoyNZB7Z23qg7 S4CJBvAYIh TMW5oEE7eY5uzIxtrlbqwO VmdDsgdmVydGljYWwtYWxp T909SXZjqNcxUbOtbVm5C2 TpGtw2TEMp uPbzEM1yjJAjHLdmRa9noF mxrJstOK2gLLLecdujn635 XqOzd2kjAXPzzBMqUVxsVR B6R37qh7H8 FUCgNIVgOJO4lQT0sC3xsU lnbjogbGVmdDsgdmVydGlj OQtjBKhuL727TKXgrVirWt BhdGllbnQg KJbqZCw2I8NaQmewvMX+PC 68KPCpFA92eZBqeYMvt0zj nYq9TjEeIUUmMAX8eXnqJN tjb0MjULLx K84nyJQxs3R0EGDdcFxguR LaMpObpXZ4hT0bZAmxzydv h1rlbdjaKajnc0egec87rM 58V29uRQeo ZHRoPSIzMCUiIHZhbGlnbj 2ftC0rKe9+DPDagYM6qLL0 tM7bFIFmXwK6JWhiA960Tv RvcCIvPjxj x9nym6toxGk0BsM5VSZnsx GjfOqsNFF1l5PeEf00D36f IHdpZHRoPSIyMCUiIHZhbG tbxt2rwB9y Ii8+WJGxrDJ4uDU4vS7zMy PqRaP8QEheQ029GtBvpYLu BbzlD01lM0KduMI+PHRyPj b8LXGvgNuv ZL4jbFXnJCheYd9bHCW1Ns UqHqGeUCewU8FeXRSdhcdo qzfkyVB3QRPkOIAqbA14Vb 9udDogMTBw aDUDoB9aovgnc8dnmcomXx VuTJJpPWb2ZNm9DRUboApc ObAgZKS3TbG5BSQ5jWBruO 1hbGlnbjog iP7hW9TfBEXiremfGy99eO 7nImPpRyU4QItzYjj+Q09M GIsVRkfdSA7RZoAFQMNANX wvdGQ+PHRk YTR8nIupUMpyFWOjqQ2lJA YhO9z5XqFnFfW6OOqiT8As SWQgjeyxBn28gW3dHyVcEp M7TIdaM5Ei biM0GWLyxIQlXFqwOIB3B2 9rl6P2HPKrXDFmBDI9rGN4 dY1blLeyjttheTQnsScxbs VydGljYWwt BVscZ891WGZmpUfmZhZ7Pa D9KlW5FMX6L4FhUvl7VQTu yHcpAI1zjQIyEXkqEt6xyV jsuMnsBI6q BJHfjidvOORgvV1jAYPgeT UawTckZR9hWRYiicngm487 BvQfDYX7XIInkDFjC9PvcL 9yOiAjMDAw PBWpM6YgvNPmDGcwT934UV ebEtO5ZUDjcpCgZ8NeEBBf wMgcVjR6f2K7Go5zEXGHNW FyczwvdGQ+ IDZbONW9qJhqTJraEJRfjB 2wPDJdZ4x0TgSiRqV5UZgz E8RaLHEydqzrSx45yV3xHt LlWuZ5JCsr D0MlnpN7KFFsyUFhVAjpBM J6Y04zb2B9LGQxDAOnHND4 cQR4fU0fpHevgsamhOErdG sgdmVydGlj VMnfZYzjH417XTMvuCetXv ZFTUFMRTwvdGQ+PHRkIHN0 kQiyCPalOAStkP6kFKCvH6 e1HnBdOtC5 VDkhH5DaNQYwzcznQu16bO 8mBuUtQpF1SIcxU9JtmaK5 GYBznNYuOLmuPAJ8C97xg0 W3HLIoHHAu LXB9bJL6rW8ucNzamcfibQ VmdDsgdmVydGljYWwtYWxp W581SHSgpPukYbMzSQHgBU 5jeTwvdGQ+ UR77ct26A6HqHwinWot3AF DpZEJ5cJK1fU2qCMEhKVqf o7Y3tRR7G9TxjoPwmv6pd2 xsYXBzZTog T92crIMcz9M1PWYcjJZ4BZ GsiOxeEkJmoJ64Awn+PGNv hNrzi0JwTukyc7gaa6hyjJ m7SsJiIJYc aeEeiQwvGTM2z1UnYl07A9 9sIHdpZHRoPSIzMCUiIHZh fXltsl3drZ0gEo0+PGNvbC O3mRW3rL7i AeKaCpE3KCiqH283FyQkhE UrItltr4ois3xndDi0AaJa RDVaixZxyTzsFMJ4o3FaBn 34M3PyxSsf h4PlUag0pk25vEGhc8H5pU Q1C9QfXVMojmhqvRRfmBdg TH5gVPBesuowTVXgfQ5zDC BqW8j1OuVu FzJ5DLebH1MpqjB8BZFarW HbXKAmxKJZcI2uhdbwm3tx ilrcReZoRPWrZPc2UYk9FT FsaWduOiBs CVR3XyY0YSE4lNNhdI4dvZ ncjuuqjS8fHqp+HNu5z8ed pMZvAF9zlGR7SE69DW50bS Yrv5F9mCM8 W4YlOVLaognopaoyxXP6MJ JfUJAkfN78Sv8cvCrvZk2z QBPbEFU8ACRdeZYmT8ElwG 9yOiAjMDAw PBEqV6KoaHZuPKmlF789IA joIiP8MNYzmhCoD6BnBVDc eYpwPlY9i5O7Sm1QZJ03VV 22MB76qGEp u6O0hNY8F6RsLKVfmvzasc rlfOC2TEJtCHYtvP14Vw9t uSmuVu5bPWDjAQB1UGJapR EzK8QceK6m AzVhLXAoOLLwL9PtdSYtJA vvQ770ANbqSpN2ECGfiqAp F8UlCPZazCdaVgL8p7W2Zc 2YHw76QF59 NU24bQMrk1N0fLV3H6QxDO MakbrpgycvxHZ0ILFrUEPo yW18Hp6naQbvTm1jZYBqWA Y7XMQdvCVs Q3MkxJ2qZkHeFPRoKQCqJ4 CgkXMqFScvL290RQnoJwD7 CQGetnUgY7RlFIWnvEzgDc S8x4D1Kb5X OGuinla0I4SyPrdkaJB+PC 73RQPiHQ67bZVndDBwe5ta wWs2KfCsAWGsUVW7lWxgBJ wuf6KtJPVl Y29 (more content not included)... [facility] Wound Cultureon 09-17-2024 Wound Culture Light growth [...] <=0.5/9.5 Verified Vanc S 1 Verified Normal [facility] Comment on above: Performed By: #### [id number] #### [facility] (DEFAULT) [address] [place] [address] MR FOOT RIGHT WO IV CONTRAST on [...] fracture which may be old in nature [facility] Radiology Study observation (narrative) [facility] Result: Notable large cyst-like region to navicular tuberosity with negative fracture identified [facility] Radiology Study observation (narrative) [facility] Headroom Coding Summaryon 07-25-2024 Coding Summary HTMLBase 64 SskwmmbgMHi9nSe+PGhlYW Q+BS1UKCXeC81pkVJypV3e T1VNTStSQkqaZGKSZWfKTe IjcgRcXA0utXZbBEUf IC8+EO9eEEGtDtenkUCxc7 L1bGC7R02gxc8dDHggcAJ4 NMRvCkWpgfelp6rlgEd3GE cuNmluOyBt MGTfpC01DIU9xS24Na74hN HwmFVbf3qwzAk7RzNqCURh DMU0aPbjZUavg8FlRPYcX9 8mwZKia1C2 KRNwlTajiJQgFmLmiPV3xU 4jWKpatgxwc1oryrsvUiv2 re67aYUgp6L2aBU2I1Ulru R1FQUwsAAf BfiggZALeB8ybxiar2kdll paLvDkWTBpKSn9XPl4WMTf yJexNfRcGN40GHZ3DYKucs DwM6VqHPRj oQzgLbD1q0A2Di1NM8HRNm xgV9JVFCZSEPxqwBD+PC90 xe52O5CvFbmhEye6FSZsSZ N9yHL8vL5z SKHiAVrrd7M8mWG6X9Vevn Pnnl8zy7gmFZBoRYtmJ03n vHRoy1V5LWWdsQR7KMQutA wsTyAuyD91 Oyc+HRKrwHqdw7DsSxdbo2 zsd4nwqEt4LnzvAYEdbxOz fTaeALV6o9ZnBz9qUMWuqZ D1kHB4pT8e XfBkWeK7ORzfK087BgRusI VvJljpT19wI2EisRL+PHRy Ujk0ZVPrkNzpID5lE5BqFU RpbmctbGVm iRbwZD8qMKGjzhgkPEIlvH 9jKLYrM8n8SjLyIqW0RBss S3VfAFIobkgmQm73kH5hZl UdYoK0YYsg Z5BymhF6HLUivTRpOHwwCK R2S86ry1W7UATwMACaNJN4 tYU9tQ9lnVkfgecggXQtbY sgdmVydGlj JGelPMlaU450WANnlDogOb NvZGluZyBEYXRlOiAgMDQv MDcvMjAyNTwvdGQ+PHRkIH E0uDxfXIVe tRFyCFlkZe8ufVhguIzjLG 7qEOKruxesXJVixG3tFSTf oGPebCohVH9tGOWbmapsn8 80ZlOvFIX7 HXSxhAQhP7UzgR5lLyDgIR XeSIGrI4ZtlKBfSGnfJ223 UKphGcT7SYHijtQvQ0TuPU FsaWduOiB0 p5V0Ry0Lv2MjhsmxA7VaxD IjWqTzCjlpQBy0R0WuWtmx dHI+QW33KLNxTV70QZf7CR U0bMtyDPca VPMxR0PtxV9mShKdMFNePW RkOyc+PHRhYmxlIHdpZHRo AEdoZTYlPsPjhNrjFH2aGt 9yZGVyLWNv lYayoSUzLvSwf4zuCIZdNI uzIU1crDihE8CekCS1ZQPz b7r7Yp90N72uF3RoxIZ+PG ZprQW5wRT7 iJ0zVaMuNpX2EFjzE240Jh NryNDnOpvwt3gth4zojFr5 YrI5ZTQfvoDgoZkhUDF8u0 UyDk56L31w IHdpZHRoPSIxNSUiIHZhbG nnyu0hqC5qIu7+PGNvbCB3 gPQ7xD1qLfNzQvN5MOndL9 49InRvcCIv Gvnsa9jgk9xaoLw2CvGaYT ReryJtiFslIZA6e9TtVk39 K2JogZhne0XyMjd1pi52uW Bcx5O3bTB2 P1VqAUBcqtoaqSXiyWyrJP 6iZIEigcmrILQuvJ5iYHKi O2g9GeTuMfJ5LThvK6Jqkj R0ZFLgnQPh CDYzmEHUxW3wtbvcs9yaxr usUcGlMDIcGNu3SJt6SRBk vQasLpJlLLL9HgV8HXE2sY DpfK5kiVam bovptE8qEjm+EFU4dJZpqR CKLM7jRzjskBU+PHRkIHN0 yZqzCEnpKXSwlS2aRHEjK2 n9YhUmLuS1 CTqaZ6UhorD6XMYfvFXkCZ DmhOLDnC5ikvagq9wivmom WiHjUCHbRVm8DXd7GMCueQ duOiBsZWZ0 TrZ3MOE9zQZkmG6ngZdzoj tmnD8fUnd+QmlydGggRGF0 CHa4E3GyYqg4AKZjiYpqLG 0ncGFkZGlu Vb5xeRqssGhtZC8sCYCcnk ozb831VtPnm8aqZOJiiKCp YFwkRJR9I43kl3K6PZEvRZ FkXUE3zQB8 iO3xnUtzpeblwGFklZtcsq AayItjBNqkRJdqH791CKCx wJwzLnSpOSz4N8XrWtq8YI XmbKzgZH0g hMYtBUfgSb9ifMhkzQxwCX 7eIBNhosqsj648GxVsm2yc NOIgdIGzJMzrCOL1D55rv9 E1FBBuAYHd FRE8bXD5wM0jlOlcgvmddD VmdDsgdmVydGljYWwtYWxp I692EBHesDszJmEwgVy9J7 NqIyr6RCNe yWyrES5djFAbRXytLf0skC uzaEhqGS2uPAOxcupdw971 ZyRkv2bpJYQirTBnCUivKT A1Y79wr7W2 UDAnDQWnJBH4iYQ4kL9tiY lnbjogbGVmdDsgdmVydGlj XYdxNDjsJ521TGAaxXduOc BhdGllbnQg CJwlMNs3J9FkNkvuiLB+PC 28PMSoVE51qQVxlGJzz3hi nQw7GwZkDMCbMWH0mHrtAC vrx1PqDMQd K45bpEEqj2D6LMDzjJlhlJ HjWyJkzUN5kA3rBLdzktnk b7bneapuNcgwf2zwhh09oK 67Q14pVKih ZHRoPSIzMCUiIHZhbGlnbj 5suI7eId2+UYOifDY7dRW5 eO1jRVPdKyA2WZnxL720Hu RvcCIvPjxj f2cjf4lfpJq3JhQ5MZMvys LxwCskBMF5w5QpLf32G90v IHdpZHRoPSIyMCUiIHZhbG xjhz1bvI7p Ii8+WRJugXS3uKF4gY6nMu VvZdL2PHbwW040NrQjiPAq SequK87xW3LfuSQ+PHRyPj b1LOPukNbv OU5kvFNwMPseOd9yWOO2Fi VeGcZhSAigY6QqOOOqtege talywHN3SBXbFHHgdV12Tu 9udDogMTBw pLOLoO2pajtry2vdklhaNi WxIBTzDQl2BNw6TKKgyOdj BgSkHVQ8VpU2FFM9gFXijC 1hbGlnbjog nZ1aR2FhRKScydtuCs07kD 8bXqEdPaI0UKceBvu+Q09M DYpUAkjtML3IMdZHRTACHR wvdGQ+PHRk CLE2aYcsSDgbNPFhtC7hOJ TgU8w9VwYtUnR8GHkvF7An LQIrhgtqMq79bC9aFiElYe D7MJpjV3Hc mkI3KTCoxJGzYTujYTI4O3 6ni7E2RFLgTSImVBM0lIS6 zB3zcNcnkpovhJDkvFhyar VydGljYWwt SUgnX913FYBedBntJtM9Lt Z0DfC8UBJ9Y2RkDkx0LMAe bAjqTW7kzEDkHQbpQw7mlK uupExjKA4m IIYpgpsyMSKjfL5cWWNwhF GzzTluBU8vBKDaoxdjx220 GbVhOYO7PQDohZBiS1JywQ 9yOiAjMDAw PWVfP0QtaZMgVZhaC898NP wxPnT2CQBpwsQsO3TuMWTv uBtmLmI1y2F2Pq0tSKJSMR FyczwvdGQ+ JDPpKTZ3tQvhJPubQJFhnJ 7tKBYoS3q3ZmJgFzG2UPgy V8BzJWTxdudjEx67fK8bAg QyHlR2WPeh V8DmryY5XLXqfMKsWBvwPC N3Z87yk3F9UMItJXQhEVT3 dUJ2rD4zrVqmnbibsUKdvA sgdmVydGlj JEiaHDzjE483LFNnaGplKm ZFTUFMRTwvdGQ+PHRkIHN0 oFecQAnsYJRjaG9rCXKuZ3 z7XqAyWoB5 NVioP9FeFVCefcpmPe04mY 8xLhViFnL3ZZbhZ3DhjfG2 KPNyzAFsYIchYQV9K58se3 D4PMEuOHQx TFR4cTQ5aA8spFekqycntZ VmdDsgdmVydGljYWwtYWxp R765QQZsmApsPlDvDQKpWH 5jeTwvdGQ+ AE52dm16R2WzTskyBhl7ME DtYYH5oIQ9dJ8hJEOdPYur a8Q0hDP2M8GmktAnrl2du3 xsYXBzZTog S33dwHUty2Z2LQWyxAC7WX FczVbwLeAktJ78Sej+PGNv lFygy0UmDxtip9tno8upnA t3ZiZyDSEx edIoiCifABP3z6KxVj11Y4 9sIHdpZHRoPSIzMCUiIHZh yGrnhg0uuB1oAx6+PGNvbC U5iGX7xY0e CrNdWuQ3VBhiL439ReLvgI EvEbzqx4idw7rhfOd3LaBx FBYzlnBwwAchGSK6r1VwOq 92R9CulFcg p4ShKtl2ow94uFUon7U3fI F2G1JnRCQgywpmpWEscLsw VO5eXGTwfawqGXZovG6iPN VqI8g0ZbUz BrA3NOinI8KaecG5GOCwpD NoRIBqkWUByR5rfwawg5qk vmgoHpJzQNFqYUj8QHx9EI FsaWduOiBs DYA3ZcI1SSQ5aYCvwL2iqI ztuldipM5dHoj+JYu8l7uh zFRpCJ4alHM1SM18HQ74rC Uiu5U5cOF9 G2GhWJVfoccscybbkZY6KX TvMWXqpR84Li3luJtwZc3l CUXtWAT0PQLtuMYsT3OyeU 9yOiAjMDAw ACCaS4NniXWuBUsdV053IH cuIpR9NLUzkmLoM1ZkYSPe bHheUeH2q6S1Ad9LYT53DG 80SL47dEGy a2Y6kYA5Z5QjJFSdloload zjtUW5TQEvRPWgzF47Mw8k wWvhWi4bRSVhPDD0FHKjcX OxH2FsxI0p GzQnGECzIAEyM3XmdIXoSL btO125CPbeSuC1APFqwxUn B0ZvQOHznLeeXyW4p5O4Oc 8ETp52OB76 PY67fHKrs1C3xWV2R6RmPR ExzgrortztyVS2ABMjRYLi jE28Gv2vaOmtHn3sHHUcXP X4JTJzuPCx F1CboJ7vTsZsONKlOSCtO2 RskWVjCHgcO292JCdyAcX0 IENzntVaA9YwVBSykAjoPc R7g0G5Cl4R TRhtsup5T8XqRohyqYX+PC 62APYtZX94gPHbhGBsv8az oWi4MqOuGACsMIC1aDgfEE xey6EcGGFu Y29 (more content not included)... [facility] [place] ED Note-Nursingon 07-17-2024 ED Note-Nursing Patient presents [...] A&O x4. Patient to ER room 7. [facility] [place] XR Foot Complete Righton XR Foot Complete Right EXAM: XR Foot Complete Right HISTORY: foot pain COMPARISON: Right foot radiographs 06/05/2017 at [place] TECHNIQUE: 3 views of the right foot FINDINGS: No acute fracture or soft tissue swelling. 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 Joint spaces in the mid foot are maintained. No radiopaque foreign body. IMPRESSION: No acute osseous abnormality. Final Dictated by: Gilmer Castro MD Dictated DT/TM: 07/17/24 9:26 Signed (Electronic Signature): Gilmer Castro MD 07/17/24 3:27 pm Technologist: MARIANA [facility] BUN, POCon 12-17-2023 Urea nitrogen [Mass/Vol] 21 mg/dL Normal 8-26 [facility] CALCIUM, IONIC (POC)on 12-16 Calcium.ionized (Bld) [Moles/Vol] 1.24 mmol/L 1.15 - 1.33 mmol/L [facility] Calcium, Ionic (POC)on 12-16 Calcium [Moles/Vol] 1.24 mmol/L Normal 1.15-1.33 [facility] Creatinine W/GFR Point of Ca reon 12-17-2023 Creatinine [Mass/Vol] 0.6 mg/dL 0.51 - 1.19 mg/dL [facility] eGFR, POC - PINF [facility] Comment on above: These results are not [...] 11-19 Creatinine [Mass/Vol] 0.6 mg/dL Normal 0.51-1.19 [facility] GFR/1.73 sq M.predicted among non-blacks MDRD (S/P/Bld) [Vol rate/Area] mL/min/{1.73_m2} Normal >60 [facility] Comment on above: Result Comment: These [...] [Moles/Vol] 12 mmol/L 7 - 16 mmol/L [facility] Chloride [Moles/Vol] 104 mmol/L 98 - 10 7 mmol/L [facility] CO2 Calc (Bld) [Moles/Vol] 27 mmol/L 22 - 30 mmol/L [facility] Potassium [Moles/Vol] 4.4 mmol/L 3.5 - 4.5 mmol/L [facility] Sodium [Moles/Vol] 142 mmol/L 138 - 146 mmol/L [facility] Electrolyteson 12-17-2023 Anion gap [Moles/Vol] 12 mmol/L Normal 7-16 [facility] Chloride [Moles/Vol] 104 mmol/L Normal 98-107 [facility] CO2 [Moles/Vol] 27 mmol/L Normal 22-30 [facility] Potassium [Moles/Vol] 4.4 mmol/L Normal 3.5-4.5 [facility] Sodium [Moles/Vol] 142 mmol/L Normal 138-146 [facility] Glucose (POC)on 12-17-2023 Glucose [Mass/Vol] 107 mg/dL High 74-100 [facility] Hemoglobin and hematocrit, b loodon 12-17-2023 Hematocrit (Bld) [Volume fraction] 41 % 36 - 46 % [facility] Hemoglobin (Bld) [Mass/Vol] 13.8 g/dL 12.0 - 16.0 g/dL [facility] Hgb/Hct, POCon 12-17-2023 Hematocrit (Bld) [Volume fraction] 41 % Normal 36-46 [facility] Hemoglobin (Bld) [Mass/Vol] 13.8 g/dL Normal 12.0-16.0 [facility] Lipid Panelon 12-17-2023 Cholesterol [Mass/Vol] 154 mg/dL 0 - 199 mg/dL [facility] Comment on above: Cholesterol Guidelines: <200 Desirable 200-240 Borderline >240 Undesirable Cholesterol in HDL [Mass/Vol] 63 mg/dL 40 - PINF mg/dL [facility] Comment on above: HDL Guidelines: <40 Undesirable 40-59 Borderline >59 Desirable Cholesterol in LDL [Mass/Vol] 77 mg/dL 0 - 100 mg/dL [facility] [employer] Comment on above: LDL Guidelines: <100 Desirable 100-129 Near to/above Desirable 130-159 Borderline >159 Undesirable Direct (measured) LDL and calculated LDL are not interchangeable tests. Cholesterol in VLDL [Mass/Vol] 14 mg/dL [facility] [employer] Cholesterol.total/Ch olesterol in HDL [Mass ratio] 2.0 {ratio} [facility] Triglyceride [Mass/Vol] 68 mg/dL NINF - 150 mg/dL [facility] [employer] Comment on above: Triglyceride Guidelines: <150 Desirable 150-199 Borderline 200-499 High >499 Very high Based on AHA Guidelines for fasting triglyceride, January 2012. Lipid Profileon 12-17-2023 Cholesterol [Mass/Vol] 154 mg/dL Normal 0-199 [facility] Comment on above: Result Comment: Cholesterol Guidelines: <200 Desirable 200-240 Borderline >240 Undesirable Performed By: #### L IPR, ANAM #### [email or web address] [address] [place] [address] [employer] Body Worker: Hemant June MD Cholesterol in HDL [Mass/Vol] 63 mg/dL Normal >40 [facility] Comment on above: Result Comment: HDL Guidelines: <40 Undesirable 40-59 Borderline >59 Desirable Performed By: #### L IPR, ANAM #### [email or web address] [address] [place] [address] Automobile Body Worker: Hemant June MD Cholesterol in LDL [Mass/Vol] 77 mg/dL Normal 0-100 [facility] Comment on above: Result Comment: LDL Guidelines: <100 Desirable 100-129 Near to/above Desirable 130-159 Borderline >159 Undesirable Direct (measured) LDL and calculated LDL are not interchangeable tests. Performed By: #### L IPR, ANAM #### [facility] [employer] [address] [place] [address] Automobile Body Worker: Hemant June MD Cholesterol in VLDL [Mass/Vol] 14 mg/dL Normal [facility] Comment on above: Performed By: #### L IPR, ANAM #### [email or web address] [address] [place] [address] Automobile Body Worker: Hemant June MD Cholesterol.total/Ch olesterol in HDL [Mass ratio] 2.0 {ratio} Normal [facility] Comment on above: Performed By: #### L IPR, ANAM #### [email or web address] [address] [place] [address] Automobile Body Worker: Hemant June MD Triglyceride [Mass/Vol] 68 mg/dL Normal <150 [facility] Comment on above: Result Comment: Triglyceride Guidelines: <150 Desirable 150-199 Borderline 200-499 High >499 Very high Based on AHA Guidelines for fasting triglyceride, January 2012. Performed By: #### L IPR, ANAM #### [employer] [address], [place] [phone] Automobile Body Worker: Hemant June MD No Panel Informationon 12-16 [facility] POCT Glucoseon 12-17-2023 Glucose [Mass/Vol] 107 mg/dL High 74 - 100 mg/dL [facility] Interpretation and review of laboratory results Abnormal [facility] POCT urea (BUN)on 12-17-2023 Urea nitrogen [Mass/Vol] 21 mg/dL 8 - 26 mg/dL [facility] Phosphoruson 12-17-2023 Phosphate [Mass/Vol] 4.1 mg/dL 2.5 - 4 .5 mg/dL [facility] Phosphorus, Inorg.on 024 Phosphorus, Inorg. 4.1 mg/dL Normal 2.5-4.5 [facility] Comment on above: Performed By: #### L IPR, ANAM #### [employer] [address] [place] [address] [phone] Automobile Body Worker: Hemant June MD CBC with Auto Differentialon 11-21-2023 Basophils (Bld) [#/Vol] 0.03 10*3/uL [facility] Basophils/100 WBC (Bld) 0 % 0 - 2 % [facility] Eosinophils (Bld) [#/Vol] 0.11 10*3/uL [facility] Eosinophils/100 WBC (Bld) 2 % 1 - 4 % [facility] Erythrocyte distribution width (RBC) [Ratio] 11.9 % 11.8 - 14.4 % [facility] Hematocrit (Bld) [Volume fraction] 43.1 % 36.3 - 47.1 % [facility] Hemoglobin (Bld) [Mass/Vol] 13.9 g/dL 11.9 - 15.1 g/dL [facility] Immature granulocytes (Bld) [#/Vol] [facility] Immature granulocytes/100 WBC (Bld) 0 % [address] [facility] Interpretation and review of laboratory results Abnormal [facility] Lymphocytes/100 WBC (Bld) 26 % 24 - 43 % [facility] Lymphocytes/100 WBC (Bld) 1.88 % [facility] MCH (RBC) [Entitic mass] 30.4 pg 25.2 - 33.5 pg [facility] MCHC (RBC) [Mass/Vol] 32.3 g/dL 28.4 - 34.8 g/dL [facility] MCV (RBC) [Entitic vol] 94.3 fL 82.6 - 102.9 fL [facility] Monocytes/100 WBC (Bld) 6 % 3 - 12 % [facility] Monocytes/100 WBC (Bld) 0.43 % [facility] Neutrophils/100 WBC (Bld) 66 % High 36 - 65 % [facility] Nucleated RBC/100 WBC (Bld) [Ratio] 0.0 % 0.0 per [address] [facility] Platelet mean volume (Bld) [Entitic vol] 10.6 fL 8.1 - 13.[address] [facility] Platelets (Bld) [#/Vol] 210 10*3/uL [facility] RBC (Bld) [#/Vol] 4.57 10*6/uL 3.95 - 5.1 1 m/uL [facility] Segmented neutrophils/100 WBC (Bld) 4.75 % [facility] WBC other (Bld) [#/Vol] 7.2 [facility] CBC with Diffon 11-21-2023 Abs. Basophil 0.03 k/uL Normal 0.00-0.20 [facility] Comment on above: Performed By: #### C DP, HCG, CP #### [facility] [address], [place] [id number] Automobile Body Worker: Hemant June MD Abs.Imm.Granulocyte <0.03 Normal 0.00-0.30 [facility] Comment on above: Performed By: #### C DP, HCG, CP #### [facility] [address], [place] [phone] Automobile Body Worker: Hemant June MD Abs.Neutrophil (Seg) 4.75 k/uL Normal 1.50-8.10 [facility] Comment on above: Performed By: #### C DP, HCG, CP #### [address] [address] Automobile Body Worker: Hemant June MD Basophils/100 WBC (Bld) 0 % Normal 0-2 [facility] Comment on above: Performed By: #### C DP, HCG, CP #### [address] [address] Automobile Body Worker: Hemant June MD Eosinophils (Bld) [#/Vol] 0.11 10*3/uL Normal 0.00-0.44 [facility] Comment on above: Performed By: #### C DP, HCG, CP #### [address] [address] Automobile Body Worker: Hemant June MD Eosinophils/100 WBC (Bld) 2 % Normal 1-4 [facility] Comment on above: Performed By: #### C DP, HCG, CP #### [address] [address] Automobile Body Worker: Hemant June MD Erythrocyte distribution width (RBC) [Ratio] 11.9 % Normal 11.8-14.4 [facility] Comment on above: Performed By: #### C DP, HCG, CP #### [facility] [employer] [address] [place] [address] Automobile Body Worker: Hemant June MD Hematocrit (Bld) [Volume fraction] 43.1 % Normal 36.3-47.1 [facility] Comment on above: Performed By: #### C DP, HCG, CP #### [facility] [employer] [address] [place] [address] Automobile Body Worker: Hemant June MD Hemoglobin (Bld) [Mass/Vol] 13.9 g/dL Normal 11.9-15.1 [facility] Comment on above: Performed By: #### C DP, HCG, CP #### [place] [address] Automobile Body Worker: Hemant June MD Immature granulocytes/100 WBC (Bld) 0 % Normal 0 [facility] Comment on above: Performed By: #### C DP, HCG, CP #### [place] [address] Automobile Body Worker: Hemant June MD Lymphocytes (Bld) [#/Vol] 1.88 10*3/uL Normal 1.10-3.70 [facility] Comment on above: Performed By: #### C DP, HCG, CP #### [place] [address] Automobile Body Worker: Hemant June MD Lymphocytes/100 WBC (Bld) 26 % Normal 24-43 [facility] Comment on above: Performed By: #### C DP, HCG, CP #### [place] [address] Automobile Body Worker: Hemant June MD MCH (RBC) [Entitic mass] 30.4 pg Normal 25.2-33.5 [facility] Comment on above: Performed By: #### C DP, HCG, CP #### [place] [address] Automobile Body Worker: Hemant June MD MCHC (RBC) [Mass/Vol] 32.3 g/dL Normal 28.4-34.8 [facility] Comment on above: Performed By: #### C DP, HCG, CP #### [place] [address] Automobile Body Worker: Hemant June MD MCV (RBC) [Entitic vol] 94.3 fL Normal 82.6-102.9 [facility] Comment on above: Performed By: #### C DP, HCG, CP #### [address] [address] Automobile Body Worker: Hemant June MD Monocytes (Bld) [#/Vol] 0.43 10*3/uL Normal 0.10-1.20 [facility] Comment on above: Performed By: #### C DP, HCG, CP #### [address] [address] Automobile Body Worker: Hemant June MD Monocytes/100 WBC (Bld) 6 % Normal 3-12 [facility] Comment on above: Performed By: #### C DP, HCG, CP #### [address] [address] Automobile Body Worker: Hemant June MD Neutrophil (Seg) 66 % High 36-65 [facility] Comment on above: Performed By: #### C DP, HCG, CP #### [address] [address] Automobile Body Worker: Hemant June MD NRBC Automated 0.0 per 100 WBC Normal 0.0 [facility] Comment on above: Performed By: #### C DP, HCG, CP #### [address] [address] Automobile Body Worker: Hemant June MD Platelet mean volume (Bld) [Entitic vol] 10.6 fL Normal 8.1-13.5 [facility] Comment on above: Performed By: #### C DP, HCG, CP #### [address] [address] Automobile Body Worker: Hemant June MD Platelets (Bld) [#/Vol] 210 10*3/uL Normal 138-453 [facility] Comment on above: Performed By: #### C DP, HCG, CP #### [address] [place] [address] Automobile Body Worker: Hemant June MD RBC (Bld) [#/Vol] 4.57 10*6/uL Normal 3.95-5.11 [facility] Comment on above: Performed By: #### C DP, HCG, CP #### [employer] [facility] [address], [place] [phone] Automobile Body Worker: Hemant June MD WBC (Bld) [#/Vol] 7.2 10*3/uL Normal 3.5-11.3 [facility] Comment on above: Performed By: #### C DP, HCG, CP #### [employer] [address] [place] [address] [phone] Automobile Body Worker: Hemant June MD CT ABDOMEN PELVIS [...] Abdulkadir Tsang MD 11/21/23 Final result Normal [facility] CT Abdomen and Pelvis W cont [...] hernia repair. Small fat containing umbilical hernia. [facility] Abdulkadir Tsang MD - 11/21/2023 [...] is in the differential. 5. Mild splenomegaly. [facility] Radiology Study observation (narrative) [facility] CT Abdomen and Pelvis W cont rast IVOrdered By: Abdulkadir Tsang on 11-21-[address] [facility] Work Phone: Comp Metabolic Profon 2023 Albumin [Mass/Vol] 4.6 g/dL Normal 3.5-5.2 [facility] Comment on above: Performed By: #### C DP, HCG, CP #### [address] [address] Autom[employer] Body Worker: Hemant June MD Albumin/Glob Ratio 2.0 Normal 1.0-2.5 [facility] Comment on above: Performed By: #### C DP, HCG, CP #### [address] [address] Automobile Body Worker: Hemant June MD Alkaline Phos 66 U/L Normal 35-104 [facility] Comment on above: Performed By: #### C DP, HCG, CP #### [address] [address] Automobile Body Worker: Hemant June MD ALT [Catalytic activity/Vol] 12 U/L Normal 10-35 [facility] Comment on above: Performed By: #### C DP, HCG, CP #### [address] [address] Automobile Body Worker: Hemant June MD Anion gap [Moles/Vol] 11 mmol/L Normal 9-16 [facility] Comment on above: Performed By: #### C DP, HCG, CP #### [address] [address] Automobile Body Worker: Hemant June MD AST [Catalytic activity/Vol] 22 U/L Normal 10-35 [facility] Comment on above: Performed By: #### C DP, HCG, CP #### [address] [address] Automobile Body Worker: Hemant June MD Bilirubin [Mass/Vol] 0.3 mg/dL Normal 0.00-1.20 [facility] Comment on above: Performed By: #### C DP, HCG, CP #### [address] [address] Automobile Body Worker: Hemant June MD Calcium [Mass/Vol] 8.9 mg/dL Normal 8.6-10.4 [facility] Comment on above: Performed By: #### C DP, HCG, CP #### [address] [address] Automobile Body Worker: Hemant June MD Chloride [Moles/Vol] 105 mmol/L Normal 98-107 [facility] Comment on above: Performed By: #### C DP, HCG, CP #### [facility] [employer] [address] [place] [address] Automobile Body Worker: Hemant June MD CO2 [Moles/Vol] 23 mmol/L Normal 20-31 [facility] Comment on above: Performed By: #### C DP, HCG, CP #### [facility] [employer] [address] [place] [address] Automobile Body Worker: Hemant June MD Creatinine [Mass/Vol] 0.7 mg/dL Normal 0.50-0.90 [facility] Comment on above: Performed By: #### C DP, HCG, CP #### [address] [address] Automobile Body Worker: Hemant June MD GFR/1.73 sq M.predicted among non-blacks MDRD (S/P/Bld) [Vol rate/Area] mL/min/{1.73_m2} Normal >60 [facility] Comment on above: Result Comment: These [...] By: #### C DP, HCG, CP #### [facility] [address] [place] [address] Automobile Body Worker: Hemant June MD Glucose [Mass/Vol] 76 mg/dL Normal 74-99 [facility] Comment on above: Performed By: #### C DP, HCG, CP #### [facility] [employer] [address] [place] [address] Automobile Body Worker: Hemant June MD Potassium [Moles/Vol] 3.7 mmol/L Normal 3.7-5.3 [facility] Comment on above: Result Comment: SPEC IMEN SLIGHTLY HEMOLYZED, RESULTS MAY BE ADVERSELY AFFECTED. Performed By: #### C DP, HCG, CP #### [email or web address] [address] [place] [address] Automobile Body Worker: Hemant June MD Protein [Mass/Vol] 7.5 g/dL Normal 6.6-8.7 [facility] Comment on above: Performed By: #### C DP, HCG, CP #### [email or web address] [address] [place] [address] Automobile Body Worker: Hemant June MD Sodium [Moles/Vol] 139 mmol/L Normal 136-145 [facility] Comment on above: Performed By: #### C DP, HCG, CP #### [email or web address] [address] [place] [address] Automobile Body Worker: Hemant June MD Urea nitrogen [Mass/Vol] 15 mg/dL Normal 6-20 [facility] Comment on above: Performed By: #### C DP, HCG, CP #### [email or web address] [address] [place] [address] Automobile Body Worker: Hemant June MD Comprehensive Metabolic Pane [facility] 11-21-2023 Albumin [Mass/Vol] 4.6 g/dL 3.5 - 5.2 g/dL [facility] Albumin/Globulin [Mass ratio] 2.0 {ratio} 1.0 - 2.[address] [facility] ALP [Catalytic activity/Vol] 66 U/L 35 - 104 U/L [facility] ALT [Catalytic activity/Vol] 12 U/L 10 - 35 U/L [facility] Anion gap [Moles/Vol] 11 mmol/L 9 - 16 mmol/L [facility] AST [Catalytic activity/Vol] 22 U/L 10 - 35 U/L [facility] Bilirubin [Mass/Vol] 0.3 mg/dL 0.00 - 1.20 mg/dL [facility] Calcium [Mass/Vol] 8.9 mg/dL 8.6 - 10. 4 mg/dL [facility] Chloride [Moles/Vol] 105 mmol/L 98 - 10 7 mmol/L [facility] CO2 [Moles/Vol] 23 mmol/L 20 - 31 mmol/L [facility] Creatinine [Mass/Vol] 0.7 mg/dL 0.50 - 0.90 mg/dL [facility] Est, Glokulwant Lewist Rate - PINF [facility] Comment on above: These [...] [Mass/Vol] 76 mg/dL 74 - 99 mg/dL [facility] Potassium [Moles/Vol] 3.7 mmol/L 3.7 - 5.3 mmol/L [facility] Comment on above: SPECIMEN SLIGHTLY HE MOLYZED, RESULTS MAY BE ADVERSELY AFFECTED. Protein [Mass/Vol] 7.5 g/dL 6.6 - 8.7 g/dL [facility] Sodium [Moles/Vol] 139 mmol/L 136 - 145 mmol/L [facility] Urea nitrogen [Mass/Vol] 15 mg/dL 6 - 20 mg/dL [facility] HCG Qualitative, Serumon HCG ( test) Ql Negative NEGATIVE [facility] Comment on above: Specimens with hCG l evels near the threshold of the test (25 mIU/mL) may give a negative or indeterminate result. In such cases, another test should be performed with a new specimen in 48-72 hours. If early is suspected clinically in this setting, correlation with quantitative serum b-hCG level is suggested. [facility] has confirmed the use of plasma for this test. This has not been cleared or approved by the U.S. Food and Drug Administration. The FDA has determined that such clearance is not necessary. [facility] HCG Screen, Bloodon 11-21-19 HCG Screen, Blood Negative Normal [facility] Comment on above: Result Comment: Spec imens with hCG levels near the threshold of the test (25 mIU/mL) may give a negative or indeterminate result. In such cases, another test should be performed with a new specimen in 48-72 hours. If early is suspected clinically in this setting, correlation with quantitative serum b-hCG level is suggested. [facility] has confirmed the use of plasma for this test. This has not been cleared or approved by the U.S. Food and Drug Administration. The FDA has determined that such clearance is not necessary. Performed By: #### C DP, HCG, CP #### [facility] [address] [place] [address] Automobile Body Worker: Hemant June MD Ambulatory Visit Summaryon [...] choosing us for your care. Kenn Noriega [facility] General Surgery Office/Clini c Noteon 02-20-2023 General [...] E&M of Est. Patient Low 20-29 Min 92134 2. Left groin pain, (R10.32: Left lower [...] E&M of Est. Patient Low 20-29 Min 51614 Follow-up No qualifying data available Problem List/Past [...] Diabetes mellitus t (more content not included)... [facility] Comment on above: Result Comment: Elec [...] ROQUE MD Where: General Surgery Mya/Chris Gray [facility] General Surgery Office/Clini c Noteon 01-28-2023 [...] pt has had 2 shots Normal Noriega [facility] Comment on above: Result Comment: Elec tronically [...] Miguelina ROQUE MD Where: General Surgery Mya/Chris Noriega [facility] General Surgery Office/Clini c Noteon 01-14-2023 General [...] Recorded pt has had 2 shots Normal [facility] Comment on above: Result Comment: Elec tronically Signed By: MYA TEMPLE, Miguelina Solis\Date and Time Signed: 01/14/23 17:16 EDT Pathology Noteon 01-14-2023 Pathology Note [id number]#1.0 0CD:127 [facility] Operative Reporton Operative Report [id number]#1.00 CD:127 [facility] Lab Reportson 01-12-2023 Lab Reports [id number]#1.00 CD:127 [facility] Lab Reports [id number]#1.00 CD:127 [facility] 01-09-2023 Lab Reports [id number]#1.0 0CD:127 [facility] Lab Reports [id number]#1.0 0CD:127 [facility] 01-07-2023 Lab Reports [id number]#1.0 0CD:127 Normal [facility] 12-26-2022 Lab Reports [id number]#1.0 0CD:127 Normal [facility] 12-25-2022 Lab Reports [id number]#1.0 0CD:127 Normal [facility] RAD - MISCon 12-25-2022 RAD - MISC [id number]#1.00 CD:127 [facility] Consent for Procedure/Surger yon 12-24-2022 Consent for Procedure/Surgery [id number]#1.0 0CD:127 [facility] Insurance Correspondenceon 0 12-24-2022 Insurance Correspondence [id number]#1.0 0CD:127 Normal [facility] General Surgery Office/Clini c Noteon [...] use inte (more content not included)... Normal [facility] Comment on above: Result Comment: [...] Miguelina ROQUE MD Where: General Surgery Mya/Chris Hawk [facility] General Surgery Office/Clini c Noteon [...] Recorded pt has had 2 shots Normal [facility] Comment on above: Result Comment: [...] TEMPLE, Miguelina Swanson Where: General Surgery Nill/Said [place] Normal [facility] Lab Reportson 11-17-2022 Lab Reports [id number]#1.0 0CD:127 Normal [facility] General Surgery Office/Clini c Noteon 11-16-2022 General Surgery Office/Clinic Note Chief Complaint breast mass HPI Staff 36 year old female presents on consultation from [facility] [place] [facility] for painful right breast mass. Patient [...] Suboxone, chronic hepatitis C, eczema, referred from [facility] ED for right breast pain, cellulitis, [...] gabapentin 8 (more content not included)... Normal [facility] Comment on above: Result Comment: [...] pain Frequency of urination Urinary frequency Normal [facility] General Surgery Office/Clini c Noteon [...] pt has had 2 shots Normal [facility] Comment on above: Result Comment: Elec tronically Signed By: MYA TEMPLE, Miguelina Solis\Date and Time Signed: 11/14/22 14:56 EDT Lab Reportson 11-14-2022 Lab Reports [id number]#1.0 0CD:127 [facility] Lab Reports [id number]#1.0 0CD:127 [facility] Ambulatory Visit Summaryon 0 11-11-2022 Ambulatory [...] Miguelina Swanson Where: General Surgery Stevanl/Chris Gray [facility] ED Note-Physicianon 11-12-19 ED Note-Physician [id number]#1.0 0CD:127 [facility] RAD - Ultrasound Reporton RAD - Ultrasound Report [id number]#1.0 0CD:127 [facility] Physician Referralon 023 Physician Referral [id number]#1.0 0CD:127 [facility] Formson 08-07-2022 Forms [id number]#1.0 0CD:127 [facility] Ambulatory Visit Summaryon 0 08-06-2022 Ambulatory Visit [...] pain Frequency of urination Urinary frequency Normal [facility] Provider Letteron 07-18-2022 Provider Letter July 18, 2022 TIARA PARIKH [address] [place] [address] [address] [place] [address] TIARA PARIKH 1985 Dear Tiara , We have been trying to reach you with no success. It is important that you return our call regarding your referral from Dr. House upon receiving this letter. Also, at the time of your call, please provide us with your current information. Thank you for your prompt attention to this matter. Sincerely, General Surgery Dr. Mya Gray/[place] [phone] Normal [facility] RAD - CT Reporton 07-17-2022 RAD - CT Report [id number]#1.0 0CD:[id number] Normal [facility] Physician Referralon 023 Physician Referral [phone] [id number] 0CD:[id number] Normal [facility] CT ABD/PELV W CONon 07-10-19 [...] Date: 2022-07-09 11:03 Normal [facility] US PELVIS AND TRANSVAGon US [...] Date: 2022-07-03 12:02 Normal [facility] CHLAMYDIA/GONOCOCCUS JOHANA (SW AB/URINE/PAPon 05-19-2022 Chlamydia trachomatis, JOHANA Negative Normal Negative [facility] Comment on above: Performed By: #### C T/NGNA #### [facility] [address] [place] [address] Dr. Gunner Dwyer Neisseria gonorrhoeae, JOHANA Negative Normal Negative [facility] Comment on above: Performed By: #### C T/NGNA #### [facility] [address] [address] [address] Gunner Dwyer VAGINITIS/VAGINOSIS DNA PROB Yuri 05-17-2022 Violeta species Negative Normal Negative [facility] Comment on above: Performed By: #### G STAIN #### [facility] [address] [place] [address] Dr. Gunner Dwyer Gardnerella vaginalis Negative Normal Negative [facility] Comment on above: Performed By: #### G STAIN #### [facility] [address] [place] [address] Dr. Gunner Dwyer Trichomonas vaginalis Negative Normal Negative [facility] Comment on above: Performed By: #### G STAIN #### [facility] [address] [place] [address] Dr. Gunner Dwyer Provider Letteron 04-23-2022 Provider Letter April 23, 2022 TIARA PARIKH [address] [place] [address] TIARA PARIKH 1985 Dear Tiara, We have [...] [facility] [address], [place] [address] [facility] CBC AUTO DIFFon 04-03-2022 BASO # 0.0 103/ul Normal 0.0-0.1 [facility] Comment on above: Performed By: #### E STRONE #### [facility] [address] [place] [address] Dr. Gunner Dwyer Basophils/100 WBC (Bld) 0.2 % Normal 0.2-2.0 [facility] Comment on above: Performed By: #### E STRONE #### [facility] [address] [place] [address] Dr. Gunner Dwyer EO # 0.0 103/ul Normal 0.0-0.7 [facility] Comment on above: Performed By: #### E STRONE #### [facility] [address] [place] [address] Dr. Gunner Dwyer Eosinophils/100 WBC (Bld) 0.4 % Critically low 0.9-7.0 [facility] Comment on above: Performed By: #### E STRONE #### [facility] [address] [place] [address] Dr. Gunner Dwyer Erythrocyte distribution width (RBC) [Ratio] 11.9 % Normal 11.0-15.0 [facility] Comment on above: Performed By: #### E STRONE #### [facility] [address] [place] [address] Dr. Gunner Dwyer Hematocrit (Bld) [Volume fraction] 39.3 % Normal 36.0-48.0 [facility] Comment on above: Performed By: #### E STRONE #### [facility] [address] [place] [address] Dr. Gunner Dwyer Hemoglobin (Bld) [Mass/Vol] 13.3 g/dL Normal 12.0-16.0 [facility] Comment on above: Performed By: #### E STRONE #### [facility] [address] [place] [address] Dr. Gunner Dwyer IG # 0.01 10e3/ul Normal 0.00-0.03 [facility] Comment on above: Performed By: #### E STRONE #### [facility] [address] [place] [address] Dr. Gunner Dwyer IG % 0.2 % Normal 0.0-0.5 [facility] Comment on above: Performed By: #### E STRONE #### [facility] [address] [place] [address] Dr. Gunner Dwyer LYMPH # 1.3 103/ul Normal 1.2-3.8 [facility] Comment on above: Performed By: #### E STRONE #### [facility] [address] [place] [address] Dr. Gunner Dwyer Lymphocytes/100 WBC (Bld) 26.4 % Normal 20.5-60.0 [facility] Comment on above: Performed By: #### E STRONE #### [facility] [address] [place] [address] Dr. Gunner Dwyer MANUAL DIFF REQ NO Normal [facility] Comment on above: Performed By: #### E STRONE #### [facility] [address] [place] [address] Dr. Gunner Dwyer MCH (RBC) [Entitic mass] 30.6 pg Normal 26.7-34.0 [facility] Comment on above: Performed By: #### E STRONE #### [facility] [address] [place] [address] Dr. Gunner Dwyer MCHC (RBC) [Mass/Vol] 33.8 g/dL Normal 29.9-35.2 [facility] Comment on above: Performed By: #### E STRONE #### [facility] [address] [place] [address] Dr. Gunner Dwyer MCV (RBC) [Entitic vol] 90.3 fL Normal 81.0-99.0 [facility] Comment on above: Performed By: #### E STRONE #### [facility] [address] [place] [address] Dr. Gunner Dwyer MONO # 0.4 103/ul Normal 0.3-0.8 [facility] Comment on above: Performed By: #### E STRONE #### [facility] [address] [place] [address] Dr. Gunner Dwyer Monocytes/100 WBC (Bld) 7.4 % Normal 1.7-12.0 [facility] Comment on above: Performed By: #### E STRONE #### [facility] [address] [place] [address] Dr. Gunner Dwyer NEUT # 3.1 103/ul Normal 1.4-6.5 [facility] Comment on above: Performed By: #### E STRONE #### [facility] [address] [place] [address] Dr. Gunner Dwyer Neutrophils/100 WBC (Bld) 65.4 % Normal 43.0-75.0 [facility] Comment on above: Performed By: #### E STRONE #### [facility] [address] [place] [address] Dr. Gunner Dwyer Platelet mean volume (Bld) [Entitic vol] 10.7 fL Normal 9.5-13.5 [facility] Comment on above: Performed By: #### E STRONE #### [facility] [address] [address] [address] Gunner Dwyer PLT 125 103/ul Critically low 150-450 [facility] Comment on above: Result Comment: SPEC IMEN REDRAWN FOR VERIFICATION--SLIDE REVIEWED FOR PLATELET CLUMPS/NONE SEEN Performed By: #### E STRONE #### [facility] [address] [address] [address] Gunner Dwyer RBC 4.35 106/ul Normal 4.20-5.40 [facility] Comment on above: Performed By: #### E STRONE #### [facility] [address] [place] [address] Dr. Gunner Dwyer WBC 4.7 103/ul Normal 4.0-11.0 [facility] Comment on above: Performed By: #### E STRONE #### [facility] [address] [address] [address] Gunner Dwyer [facility] SARS-CoV-2 (COVID-19) RNA JOHANA+probe Ql (Unsp spec) Not detected Normal NOT DETECTED [facility] Comment on above: Result Comment: This test is not yet approved or cleared by the [place] FDA. When there are no FDA-approved or cleared tests available, and other criteria are met, FDA can make tests available under an emergency access mechanism called an Emergency Use Authorization (EUA). The EUA for this test is supported by the [employer] An[employer] of Health and Human Service's (HHS's) declaration [...] By: #### T POAB #### [facility] [address] [place] [address] Dr. Gunner Dwyer DRUG SCREEN RAPID (URINE)on 03-24-2022 AMP Negative Normal NEGATIVE [facility] Comment on above: Performed By: #### G STAIN #### [facility] [address] [place] [address] Dr. Gunner Dwyer BAR Negative Normal NEGATIVE [facility] Comment on above: Performed By: #### G STAIN #### [facility] [address] [place] [address] Dr. Gunner Dwyer BUP Positive Abnormal NEGATIVE [facility] Comment on above: Performed By: #### G STAIN #### [facility] [address] [place] [address] Dr. Gunner Dwyer BZO Negative Normal NEGATIVE [facility] Comment on above: Performed By: #### G STAIN #### [facility] [address] [place] [address] Dr. Gunner Dwyer JOSEPH Negative Normal NEGATIVE [facility] Comment on above: Performed By: #### G STAIN #### [facility] [address] [place] [address] Dr. Gunner Dwyer CUT-OFFS SEE BELOW Normal [facility] Comment on above: Result Comment: [...] By: #### G STAIN #### [facility] [address] [place] [address] Dr. Gunner Dwyer DRUG CUT HEADER DRUG CLASS TEST SYST EM CUT-OFF CONCENTRATIONS ARE FOLLOWS: Normal [facility] Comment on above: Performed By: #### G STAIN #### [facility] [address] [place] [address] Dr. Gunner Dwyer mAMP Negative Normal NEGATIVE [facility] Comment on above: Performed By: #### G STAIN #### [facility] [address] [place] [address] Dr. Gunner Dwyer MTD Negative Normal NEGATIVE [facility] Comment on above: Performed By: #### G STAIN #### [facility] [address] [place] [address] Dr. Gunner Dwyer OPI Negative Normal NEGATIVE [facility] Comment on above: Performed By: #### G STAIN #### [facility] [address] [place] [address] Dr. Gunner Dwyer OXY Negative Normal NEGATIVE [facility] Comment on above: Performed By: #### G STAIN #### [facility] [address] [place] [address] Dr. Gunner Dwyer PCP Negative Normal NEGATIVE [facility] Comment on above: Performed By: #### G STAIN #### [facility] [address] [place] [address] Dr. Gunner Dwyer PPX Negative Normal NEGATIVE [facility] Comment on above: Performed By: #### G STAIN #### [facility] [address] [place] [address] Dr. Gunner Dwyer TCA Negative Normal NEGATIVE [facility] Comment on above: Performed By: #### G STAIN #### [facility] [address] [place] [address] Dr. Gunner Dwyer THC Positive Abnormal NEGATIVE [facility] Comment on above: Performed By: #### G STAIN #### [facility] [address] [place] [address] Dr. Gunner Dwyer CORTISOL FREE, SERUMon 03-08 Cortisol, Free Dialysis, LCMS 0.470 ug/dL Normal [facility] Comment on above: Result Comment: Thes e tests were developed and their performance characteristics determined by [facility]. They have not been cleared or approved by the Food and Drug Administration. Reference Range: 8 AM 0.10 - 1.20 4 PM 0.042 - 0.872 Performed By: #### C T/NGNA #### [facility] [address] [place] [address] Dr. Gunner Dwyer SEROTONINon 03-04-2022 Serotonin, Serum 33 ng/mL Normal 31-207 [facility] Comment on above: Performed By: #### E STRONE #### [facility] [address] [place] [address] Dr. Gunner Dwyer TESTOSTERONE, FREE,DIRECT, T OTALon 03-02-2022 Free Testosterone(Direct) 0.5 pg/mL Normal 0.0-4.2 [facility] Comment on above: Result Comment: Perf ormed at: BN Performed By: #### C T/NGNA #### [facility] [address] [place] [address] Dr. Gunner Dwyer Testosterone [Mass/Vol] 18 ng/dL Normal 8-60 [facility] Comment on above: Result Comment: Perf ormed at: CB Performed By: #### C T/NGNA #### [facility] [address] [place] [address] Dr. Gunner Dwyer ESTRONEon 02-28-2022 Estrone, Serum 39 pg/mL Normal 27-231 [facility] Comment on above: Result Comment: Rang e Adult (Premenopausal) 27 - 231 Menstrual Cycle (1-10 days) 19 - 149 Menstrual Cycle (11-20 days) 32 - 176 Menstrual Cycle (21-30 days) 37 - 200 Performed By: #### E STRONE #### [facility] [address] [place] [address] Dr. Gunner Dwyer REVERSE T3on 02-28-2022 Reverse T3, Serum 32.0 ng/dL Critically high 9.2-24.1 [facility] Comment on above: Result Comment: This test was developed and its performance characteristics determined by [facility]. It has not been cleared or approved by the Food and Drug Administration. Performed By: #### G STAIN #### [facility] [address] [place] [address] Dr. Gunner Dwyer VIT D 1 25 DIHYDROXYon 02-28 Calcitriol(1,25 di-OH Vit D) 26.1 pg/mL Normal 24.8-81.5 [facility] Comment on above: Performed By: #### Mauricio SANCHEZ #### [facility] [address] [place] [address] Dr. Gunner Dwyer THYROGLOBULIN AB AND THYROGL OBULINon 02-27-2022 Thyroglobulin Antibody <1.0 Normal 0.0-0.9 [facility] Comment on above: Result Comment: Thyr oglobulin Antibody measured by Rohini Bobo Methodology Performed By: #### C T/NGNA #### [facility] [address] [place] [address] Dr. Gunner Dwyer Thyroglobulin by REJI 2.7 ng/mL Normal 1.5-38.5 [facility] Comment on above: Result Comment: [...] By: #### C T/NGNA #### [facility] [address] [place] [address] Dr. Gunner Dwyer C-PEPTIDE, SERUMon C-Peptide, Serum 3.7 ng/mL Normal 1.1-4.4 [facility] Comment on above: Result Comment: C-Pe ptide reference interval is for fasting patients. Performed By: #### C T/NGNA #### [facility] [address] [place] [address] Dr. Gunner Dwyer DHEA-SULFATEon 02-26-2022 DHEA-Sulfate 43.9 ug/dL Critically low 57.3-279.2 [facility] Comment on above: Performed By: #### C T/NGNA #### [facility] [address] [place] [address] Dr. Gunner Dwyer ESTRADIOLon 02-26-2022 Estradiol 86.3 pg/mL Normal [facility] Comment on above: Result Comment: Adul t Female: Follicular phase 12.5 - 166.0 Ovulation phase 85.8 - 498.0 Luteal phase 43.8 - 211.0 Postmenopausal <6.0 - 54.7 1st trimester 215.0 - >4300.0 Paolo ECLIA methodology Performed By: #### E STRADI #### [facility] [address] [address] [address] Gunner Dwyer INSULINon 02-26-2022 Insulin 17.9 uIU/mL Normal 2.6-24.9 [facility] Comment on above: Performed By: #### T POAB #### [facility] [address] [place] [address] Dr. Gunner Dwyer PROGESTERONEon 02-26-2022 Progesterone 0.9 ng/mL Normal [facility] Comment on above: Result Comment: Foll icular phase 0.1 - 0.9 Luteal phase 1.8 - 23.9 Ovulation phase 0.1 - 12.0 First trimester 11.0 - 44.3 Second trimester 25.4 - 83.3 Third trimester 58.7 - 214.0 Postmenopausal 0.0 - 0.1 Performed By: #### E STRONE #### [facility] [address] [place] [address] Dr. Gunner Dwyer SEX HORMONE-BINDING GLOBULIN on 02-26-2022 Sex Horm Binding Glob, Serum 81.9 nmol/L Normal 24.6-122.0 [facility] Comment on above: Performed By: #### C T/NGNA #### [facility] [address] [address] [address] Gunner Dwyer T3, TOTAL (TRIIODOTHYRONINE) on 02-26-2022 T3, TOTAL 196 ng/dL Critically high 71-180 [facility] Comment on above: Performed By: #### T POAB #### [facility] [address] [place] [address] Dr. Gunner Dwyer THYROID PEROXIDASE ABon 11- Thyroid Peroxidase (TPO) Ab 31 IU/mL Normal 0-34 [facility] Comment on above: Performed By: #### T POAB #### [facility] [address] [address] [address] Gunner Dwyer FERRITINon 02-25-2022 Ferritin [Mass/Vol] 103.0 ng/mL Normal 6.2-137.0 [facility] Comment on above: Performed By: #### C T/NGNA #### [facility] [address] [place] [address] Dr. Gunner Dwyer FREE T3on 02-25-2022 FREE T3 2.95 pg/mlL Normal 2.18-3.98 [facility] Comment on above: Performed By: #### G YAMILA, FT3, T4, TSH #### [facility] [address] [place] [address] Dr. Gunner Dwyer FREE T4on 02-25-2022 Free T4 [Mass/Vol] 1.15 ng/dL Normal 0.76-1.46 [facility] Comment on above: Performed By: #### C T/NGNA #### [facility] [address] [place] [address] Dr. Gunner Dwyer GLUCOSE BLOODon 02-25-2022 Glucose [Mass/Vol] 100 mg/dL Normal 74-106 [facility] Comment on above: Performed By: #### G YAMILA, FT3, T4, TSH #### [facility] [address] [place] [address] Dr. Gunner Dwyer GLYCOHEMOGLOBIN A1Con 2021 ADA RECOMMENDATION SEE BELOW Normal [facility] Comment on above: Result Comment: ADA RECOMMENDED LIMIT 4.0 - 6.0 ADA THERAPEUTIC TARGET < 7.0 ACTION SUGGESTED > 7.0 Performed By: #### A 1C #### [facility] [address] [place] [address] Dr. Gunner Dwyer Glucose [Mass/Vol] 105 mg/dL Normal [facility] Comment on above: Performed By: #### A 1C #### [facility] [address] [place] [address] Dr. Gunner Dwyer HbA1c (Bld) [Mass fraction] 5.3 % Normal 4.5-6.2 [facility] Comment on above: Performed By: #### A 1C #### [facility] [address] [place] [address] Dr. Gunner Dwyer T4on 02-25-2022 T4 [Mass/Vol] 13.60 ug/dL Normal 4.80-13.90 [facility] Comment on above: Performed By: #### G YAMILA, FT3, T4, TSH #### [facility] [address] [place] [address] Dr. Gunner Dwyer TSHon 02-25-2022 TSH 0.759 uIU/mL Normal 0.358-3.740 [facility] Comment on above: Performed By: #### G YAMILA, FT3, T4, TSH #### [facility] [address] [place] [address] Dr. Gunner Dwyer CULTURE OTHERon 02-08-2022 CULTURE [...] F Trimethoprim/Sulfameth oxazole <=20 S F Normal [facility] Comment on above: Performed By: #### E STRONE #### [facility] [address] [place] [address] Dr. Gunner Dwyer CULTURE ANAEROBICon 02-06-20 CULTURE ANAEROBIC Culture Observations : NO GROWTH OF ANAEROBES AT 72 HOURS. Normal [facility] Comment on above: Performed By: #### E STRONE #### [facility] [address] [place] [address] Dr. Gunner Dwyer GRAM STAINon 02-05-2022 DIPHTHEROIDS Normal [facility] Comment on above: Performed By: #### G STAIN #### [facility] [address] [place] [address] Dr. Gunner Dwyer EPITHELIALS RARE Normal [facility] Comment on above: Performed By: #### G STAIN #### [facility] [address] [address] [address] Gunner Dwyer FUNGAL ELEMENTS Normal [facility] Comment on above: Performed By: #### G STAIN #### [facility] [address] [address] [address] Gunner Dwyer GRAM NEG BACILLI RARE Normal [facility] Comment on above: Performed By: #### G STAIN #### [facility] [address] [address] [address] Gunner GONZALEZ NEG DIPPLOCOCCI MODERATE Normal [facility] Comment on above: Performed By: #### G STAIN #### [facility] [address] [place] [address] Dr. Gunner Dwyer GRAM POS BACILLI [facility] Comment on above: Performed By: #### G STAIN #### [facility] [address] [place] [address] Dr. Gunner Dwyer GRAM POSITIVE COCCI FEW Normal [facility] Comment on above: Performed By: #### G STAIN #### [facility] [address] [address] [address] Gunner Dwyer GRAM STAIN SOURCE nipple discharge Normal [facility] Comment on above: Performed By: #### G STAIN #### [facility] [address] [place] [address] Dr. Gunner Dwyer GS_DIPTH [facility] Comment on above: Performed By: #### G STAIN #### [facility] [address] [place] [address] Dr. Gunner Dwyer WBC Normal [facility] Comment on above: Performed By: #### G STAIN #### [facility] [address] [address] [address] Gunner Dwyer INSULINon 01-31-2022 Insulin 8.5 uIU/mL Normal 2.6-24.9 [facility] Comment on above: Performed By: #### G STAIN #### [facility] [address] [place] [address] Dr. Gunner Dwyer CBC AUTO DIFFon 01-30-2022 BASO # 0.0 103/ul Normal 0.0-0.1 [facility] Comment on above: Performed By: #### G STAIN #### [facility] [address] [place] [address] Dr. Gunner Dwyer Basophils/100 WBC (Bld) 0.6 % Normal 0.2-2.0 [facility] Comment on above: Performed By: #### G STAIN #### [facility] [address] [place] [address] Dr. Gunner Dwyer EO # 0.1 103/ul Normal 0.0-0.7 [facility] Comment on above: Performed By: #### G STAIN #### [facility] [address] [place] [address] Dr. Gunner Dwyer Eosinophils/100 WBC (Bld) 2.5 % Normal 0.9-7.0 [facility] Comment on above: Performed By: #### G STAIN #### [facility] [address] [place] [address] Dr. Gunner Dwyer Erythrocyte distribution width (RBC) [Ratio] 11.9 % Normal 11.0-15.0 [facility] Comment on above: Performed By: #### G STAIN #### [facility] [address] [place] [address] Dr. Gunner Dwyer Hematocrit (Bld) [Volume fraction] 42.8 % Normal 36.0-48.0 [facility] Comment on above: Performed By: #### G STAIN #### [facility] [address] [place] [address] Dr. Gunner Dwyer Hemoglobin (Bld) [Mass/Vol] 13.8 g/dL Normal 12.0-16.0 [facility] Comment on above: Performed By: #### G STAIN #### [facility] [address] [place] [address] Dr. Gunner Dwyer IG # 0.01 10e3/ul Normal 0.00-0.03 [facility] Comment on above: Performed By: #### G STAIN #### [facility] [address] [place] [address] Dr. Gunner Dwyer IG % 0.2 % Normal 0.0-0.5 [facility] Comment on above: Performed By: #### G STAIN #### [facility] [address] [place] [address] Dr. Gunner Dwyer LYMPH # 1.4 103/ul Normal 1.2-3.8 [facility] Comment on above: Performed By: #### G STAIN #### [facility] [address] [place] [address] Dr. Gunner Dwyer Lymphocytes/100 WBC (Bld) 27.5 % Normal 20.5-60.0 [facility] Comment on above: Performed By: #### G STAIN #### [facility] [address] [place] [address] Dr. Gunner Dwyer MANUAL DIFF REQ NO Normal [facility] Comment on above: Performed By: #### G STAIN #### [facility] [address] [place] [address] Dr. Gunner Dwyer MCH (RBC) [Entitic mass] 31.1 pg Normal 26.7-34.0 [facility] Comment on above: Performed By: #### G STAIN #### [facility] [address] [place] [address] Dr. Gunner Dwyer MCHC (RBC) [Mass/Vol] 32.2 g/dL Normal 29.9-35.2 [facility] Comment on above: Performed By: #### G STAIN #### [facility] [address] [place] [address] Dr. Gunner Dwyer MCV (RBC) [Entitic vol] 96.4 fL Normal 81.0-99.0 [facility] Comment on above: Performed By: #### G STAIN #### [facility] [address] [place] [address] Dr. Gunner Dwyer MONO # 0.3 103/ul Normal 0.3-0.8 [facility] Comment on above: Performed By: #### G STAIN #### [facility] [address] [place] [address] Dr. Gunner Dwyer Monocytes/100 WBC (Bld) 6.1 % Normal 1.7-12.0 [facility] Comment on above: Performed By: #### G STAIN #### [facility] [address] [place] [address] Dr. Gunner Dwyer NEUT # 3.3 103/ul Normal 1.4-6.5 [facility] Comment on above: Performed By: #### G STAIN #### [facility] [address] [place] [address] Dr. Gunner Dwyer Neutrophils/100 WBC (Bld) 63.1 % Normal 43.0-75.0 [facility] Comment on above: Performed By: #### G STAIN #### [facility] [address] [place] [address] Dr. Gunner Dwyer Platelet mean volume (Bld) [Entitic vol] 10.5 fL Normal 9.5-13.5 [facility] Comment on above: Performed By: #### G STAIN #### [facility] [address] [place] [address] Dr. Gunner Dwyer PLT 171 103/ul Normal 150-450 [facility] Comment on above: Performed By: #### G STAIN #### [facility] [address] [place] [address] Dr. Gunner Dwyer RBC 4.44 106/ul Normal 4.20-5.40 [facility] Comment on above: Performed By: #### G STAIN #### [facility] [address] [place] [address] Dr. Gunner Dwyer WBC 5.2 103/ul Normal 4.0-11.0 [facility] Comment on above: Performed By: #### G STAIN #### [facility] [address] [place] [address] Dr. Gunner Dwyer FREE THYROXINE INDEX T7on FTI 3.05 Normal 1.30-4.50 [facility] Comment on above: Performed By: #### T POAB #### [facility] [address] [place] [address] Dr. Gunner Dwyre T3U 24.0 % Critically low 30.0-39.0 [facility] Comment on above: Performed By: #### T POAB #### [facility] [address] [address] [address] Gunner Dwyer T4 [Mass/Vol] 12.70 ug/dL Normal 4.80-13.90 [facility] Comment on above: Performed By: #### T POAB #### [facility] [address] [place] [address] Dr. Gunner Dwyer GLYCOHEMOGLOBIN A1Con 2021 ADA RECOMMENDATION SEE BELOW Normal [facility] Comment on above: Result Comment: ADA RECOMMENDED LIMIT 4.0 - 6.0 ADA THERAPEUTIC TARGET < 7.0 ACTION SUGGESTED > 7.0 Performed By: #### T POAB #### [facility] [address] [place] [address] Dr. Gunner Dwyer Glucose [Mass/Vol] 97 mg/dL Normal [facility] Comment on above: Performed By: #### T POAB #### [facility] [address] [place] [address] Dr. Gunner Dwyer HbA1c (Bld) [Mass fraction] 5.0 % Normal 4.5-6.2 [facility] Comment on above: Performed By: #### T POAB #### [facility] [address] [place] [address] Dr. Gunner Dwyer IRONon 01-30-2022 Iron [Mass/Vol] 101.0 ug/dL Normal 50.0-170.0 [facility] Comment on above: Performed By: #### C T/NGNA #### [facility] [address] [place] [address] Dr. Gunner Dwyer LIPID PROFILEon 01-30-2022 CHOL-HDL RATIO NORM SEE BELOW Normal [facility] Comment on above: Result Comment: 3.3 - 4.4 LOW RISK 4.4 - 7.1 AVERAGE RISK 7.1 - 11.0 MODERATE RISK >11.0 HIGH RISK Performed By: #### T POAB #### [facility] [address] [place] [address] Dr. Gunner Dwyer Cholesterol [Mass/Vol] 168 mg/dL Normal <=200 [facility] Comment on above: Performed By: #### T POAB #### [facility] [address] [address] [address] Gunner Dwyer Cholesterol in HDL [Mass/Vol] 88 mg/dL Critically high 40-60 [facility] Comment on above: Performed By: #### T POAB #### [facility] [address] [address] [address] Gunner Dwyer Cholesterol in LDL [Mass/Vol] 69.6 mg/dL Normal [facility] Comment on above: Performed By: #### T POAB #### [facility] [address] [address] [address] Gunner Dwyer Cholesterol.total/Ch olesterol in HDL [Mass ratio] 1.9 {ratio} Normal [facility] Comment on above: Performed By: #### T POAB #### [facility] [address] [address] [address] Gunner Dwyer HDL NORMAL > or = 60 mg/dl - LO W CARDIOVASCULAR RISK <40 mg/dl - HIGH CARDIOVASCULAR RISK Normal [facility] Comment on above: Performed By: #### T POAB #### [facility] [address] [address] [address] Gunner Dwyer LDL CALC NORMAL SEE BELOW Normal [facility] Comment on above: Result Comment: <100 mg/dl OPTIMAL 100 - 129 mg/dl NEAR OR ABOVE OPTIMAL 130 - 159 mg/dl BORDERLINE HIGH 160 - 189 mg/dl HIGH >190 mg/dl VERY HIGH Performed By: #### T POAB #### [facility] [address] [address] [address] Gunner Dwyer Triglyceride [Mass/Vol] 52 mg/dL Normal <=150 [facility] Comment on above: Performed By: #### T POAB #### [facility] [address] [address] [address] Gunner Dwyer VLDL CALC 10.4 mg/dL Normal [facility] Comment on above: Performed By: #### T POAB #### [facility] [address] [address] [address] Gunner Dwyer PROF 14(COMP METB)on 022 Albumin [Mass/Vol] 4.0 g/dL Normal 3.4-5.0 [facility] Comment on above: Performed By: #### T POAB #### [facility] [address] [place] [address] Dr. Gunner Dwyer Albumin/Globulin [Mass ratio] 1.2 {ratio} Normal [facility] Comment on above: Performed By: #### T POAB #### [facility] [address] [place] [address] Dr. Gunner Dwyer ALP [Catalytic activity/Vol] 62 U/L Normal 46-116 [facility] Comment on above: Performed By: #### T POAB #### [facility] [address] [place] [address] Dr. Gunner Dwyer ALT [Catalytic activity/Vol] 60 U/L Critically high 14-59 [facility] Comment on above: Performed By: #### T POAB #### [facility] [address] [place] [address] Dr. Gunner Dwyer Anion gap [Moles/Vol] 10.8 mmol/L Normal [facility] Comment on above: Performed By: #### T POAB #### [facility] [address] [place] [address] Dr. Gunner Dwyer AST [Catalytic activity/Vol] 35 U/L Normal 15-37 [facility] Comment on above: Performed By: #### T POAB #### [facility] [address] [place] [address] Dr. Gunner Dwyer Bilirubin [Mass/Vol] 0.4 mg/dL Normal 0.2-1.0 [facility] Comment on above: Performed By: #### T POAB #### [facility] [address] [place] [address] Dr. Gunner Dwyer Calcium [Mass/Vol] 8.8 mg/dL Normal 8.5-10.1 [facility] Comment on above: Performed By: #### T POAB #### [facility] [address] [place] [address] Dr. Gunner Dwyer Chloride [Moles/Vol] 104 mmol/L Normal 98-107 [facility] Comment on above: Performed By: #### T POAB #### [facility] [address] [place] [address] Dr. Gunner Dwyer CO2 [Moles/Vol] 28.2 mmol/L Normal 21.0-32.0 [facility] Comment on above: Performed By: #### T POAB #### [facility] [address] [address] [address] Gunner Dwyer Creatinine [Mass/Vol] 0.69 mg/dL Normal 0.55-1.02 [facility] Comment on above: Performed By: #### T POAB #### [facility] [address] [place] [address] Dr. Gunner Dwyer EGFR-AF ESTONIAN >60 Normal >=60 [facility] Comment on above: Performed By: #### T POAB #### [facility] [address] [place] [address] Dr. Gunner Dwyer EGFR-NON AF ESTONIAN >60 Normal >=60 [facility] Comment on above: Performed By: #### T POAB #### [facility] [address] [address] [address] Gunner Dwyer Globulin (S) [Mass/Vol] 3.3 g/dL Normal [facility] Comment on above: Performed By: #### T POAB #### [facility] [address] [place] [address] Dr. Gunner Dwyer Glucose [Mass/Vol] 95 mg/dL Normal 74-106 [facility] Comment on above: Performed By: #### T POAB #### [facility] [address] [place] [address] Dr. Gunner Dwyer Potassium [Moles/Vol] 4.0 mmol/L Normal 3.5-5.1 [facility] Comment on above: Performed By: #### T POAB #### [facility] [address] [place] [address] Dr. Gunner Dwyer Protein [Mass/Vol] 7.3 g/dL Normal 6.4-8.2 [facility] Comment on above: Performed By: #### T POAB #### [facility] [address] [address] [address] Gunner Dwyer Sodium [Moles/Vol] 139 mmol/L Normal 136-145 [facility] Comment on above: Performed By: #### T POAB #### [facility] [address] [place] [address] Dr. Gunner Dwyer Urea nitrogen [Mass/Vol] 18.0 mg/dL Normal 7.0-18.0 [facility] Comment on above: Performed By: #### T POAB #### [facility] [address] [place] [address] Dr. Gunner Dwyer Urea nitrogen/Creatinine [Mass ratio] 26.1 mg/mg Normal [facility] Comment on above: Performed By: #### T POAB #### [facility] [address] [place] [address] Dr. Gunner Dwyer TSHon 01-30-2022 TSH 0.529 uIU/mL Normal 0.358-3.740 [facility] Comment on above: Performed By: #### T POAB #### [facility] [address] [place] [address] Dr. Gunner Dwyer VITAMIN D 25 OHon 01-30-2022 VIT D 25-OH 30.6 ng/mL Normal [facility] Comment on above: Performed By: #### C T/NGNA #### [facility] [address] [place] [address] Dr. Gunner Dwyer VIT D RANGES SEE BELOW Normal [facility] Comment on above: Result Comment: <20 ng/mL Vit D deficient 20 - <30 ng/mL Vit D insufficient 30 - 100 ng/mL Vit D sufficient >100 ng/mL Potential Toxicity Performed By: #### C T/NGNA #### [facility] [address] [place] [address] Dr. Gunner Dwyer XR LSPINE MIN 4 [...] by: GUILLE MISTRY Date: 2022-01-30 18:59 Normal [facility] Vital Signs Date Time Vital Sign Value Performing Clinician Facility 12-07-2024 16:48-0400 Body height 170.2 cm Serg Dolce DPM FACFAS Work Phone: [facility] 12-07-2024 16:48-0400 Body mass index (BMI) [Ratio] 43.54 kg/m2 Serg Dolce DPM [facility]AC[facility] Work Phone: [facility] 12-07-2024 16:48-0400 Body weight 126.1 kg Serg Dolce DPM [employer]AC[employer] Work Phone: [facility] 12-07-2024 16:48-0400 Diastolic blood pressure 76 mm[Hg] Serg Dolce DPM FAC[employer] Work Phone: [facility] 12-07-2024 16:48-0400 Heart rate 79 /min Serg Dolce DPM [employer]AC[employer] Work Phone: [facility] 12-07-2024 16:48-0400 Systolic blood pressure 126 mm[Hg] Serg Dolce DPM FAC[employer] Work Phone: [facility] 11-16-2024 16:15-0400 Body height 170.2 cm Serg Dolce DPM [employer]AC[employer] Work Phone: [facility] 11-16-2024 16:15-0400 Body mass index (BMI) [Ratio] 43.54 kg/m2 Serg Dolce DPM [employer] Work Phone: [facility] 11-16-2024 16:15-0400 Body weight 126.1 kg Serg Dolce DPM [employer] Work Phone: [facility] 11-16-2024 16:15-0400 Diastolic blood pressure 79 mm[Hg] Serg Dolce DPM [employer]AC[employer] Work Phone: [facility] 11-16-2024 16:15-0400 Heart rate 77 /min Serg Dolce DPM [employer] Work Phone: [facility] 11-16-2024 16:15-0400 Systolic blood pressure 129 mm[Hg] Serg Dolce DPM [employer]AC[employer] Work Phone: [facility] 10-26-2024 16:14-0400 Body height 170.2 cm Serg Dolce DPM [employer] Work Phone: [facility] 10-26-2024 16:14-0400 Body mass index (BMI) [Ratio] 43.54 kg/m2 Serg Dolce DPM [employer] Work Phone: [facility] 10-26-2024 16:14-0400 Body weight 126.1 kg Serg Dolce DPM [employer] Work Phone: [facility] 10-26-2024 16:14-0400 Diastolic blood pressure 78 mm[Hg] Serg Dolce DPM [employer] Work Phone: [facility] 10-26-2024 16:14-0400 Heart rate 79 /min Serg Dolce DPM [employer] Work Phone: [facility] 10-26-2024 16:14-0400 Systolic blood pressure 128 mm[Hg] Serg Dolce DPM FAC[employer] Work Phone: [facility] 10-19-2024 16:51-0400 Body height 170.2 cm Serg Dolce DPM [employer] Work Phone: [facility] 10-19-2024 16:51-0400 Body mass index (BMI) [Ratio] 43.54 kg/m2 Serg Dolce DPM [employer] Work Phone: [facility] 10-19-2024 16:51-0400 Body weight 126.1 kg Serg Dolce DPM [employer] Work Phone: [facility] 10-19-2024 16:51-0400 Diastolic blood pressure 77 mm[Hg] Serg Dolce DPM FAC[employer] Work Phone: [facility] 10-19-2024 16:51-0400 Heart rate 74 /min Serg Dolce DPM [employer] Work Phone: [facility] 10-19-2024 16:51-0400 Systolic blood pressure 126 mm[Hg] Serg Dolce DPM [employer] Work Phone: [facility] 10-05-2024 16:19-0400 Body height 170.2 cm Serg Dolce DPM [employer] Work Phone: [facility] 10-05-2024 16:19-0400 Body mass index (BMI) [Ratio] 43.54 kg/m2 Serg Dolce DPM [employer] Work Phone: [facility] 10-05-2024 16:19-0400 Body weight 126.1 kg Serg Dolce DPM [employer] Work Phone: [facility] 10-05-2024 16:19-0400 Diastolic blood pressure 75 mm[Hg] Serg Dolce DPM [employer] Work Phone: [facility] 10-05-2024 16:19-0400 Heart rate 73 /min Serg Dolce DPM [employer] Work Phone: [facility] 10-05-2024 16:19-0400 Systolic blood pressure 125 mm[Hg] Serg Dolce DPM [employer] Work Phone: [facility] 09-14-2024 16:38-0400 Body height 170.2 cm Serg Dolce DPM [employer] Work Phone: [facility] 09-14-2024 16:38-0400 Body mass index (BMI) [Ratio] 43.54 kg/m2 Serg Dolce DPM [employer] Work Phone: [facility] 09-14-2024 16:38-0400 Body weight 126.1 kg Serg Dolce DPM [employer] Work Phone: [facility] 09-14-2024 16:38-0400 Diastolic blood pressure 74 mm[Hg] Serg Dolce DPM [employer] Work Phone: [facility] 09-14-2024 16:38-0400 Heart rate 74 /min Serg Mata DPM FAC[facility] Work Phone: [facility] 09-14-2024 16:38-0400 Systolic blood pressure 124 mm[Hg] Serg Mata DPM [employer]AC[employer] Work Phone: [facility] 09-06-2024 15:30-0400 Body height 170.2 cm Yared Brown DPM Work Phone: [facility] 09-06-2024 15:30-0400 Body mass index (BMI) [Ratio] 43.54 kg/m2 Yared Brown DPM Work Phone: [facility] 09-06-2024 15:30-0400 Body weight 126.1 kg Yared Brown DPM Work Phone: [facility] 09-06-2024 15:30-0400 Respiratory rate 16 /min Yared Brown DPM Work Phone: [facility] 08-29-2024 15:22-0400 Body height 170.2 cm Yared Brown DPM Work Phone: [facility] 08-29-2024 15:22-0400 Body mass index (BMI) [Ratio] 43.54 kg/m2 Yared Brown DPM Work Phone: [facility] 08-29-2024 15:22-0400 Body weight 126.1 kg Yared Brown DPM Work Phone: [facility] 08-29-2024 15:22-0400 Respiratory rate 16 /min Yared Brown DPM Work Phone: [facility] 08-08-2024 15:44-0400 Body height 170.2 cm Yared Brown DPM Work Phone: [facility] 08-08-2024 15:44-0400 Body mass index (BMI) [Ratio] 43.54 kg/m2 Yared Brown DPM Work Phone: [facility] 08-08-2024 15:44-0400 Body weight 126.1 kg Yared Mk DPM Work Phone: [facility] 08-08-2024 15:44-0400 Respiratory rate 16 /min Yared Terrazas DPM Work Phone: [facility] 12-17-2023 11:15-0400 Diastolic blood pressure 70 mm[Hg] Darrick Benitez MD [facility] Phone: [facility] [employer] 12-17-2023 11:15-0400 Heart rate 84 /min Darrick Benitez MD Work Phone: [facility] [employer] 12-17-2023 11:15-0400 Respiratory rate 16 /min Darrick Benitez MD Work Phone: [facility] [employer] 12-17-2023 11:15-0400 SaO2% (BldA) [Mass fraction] 96 % Darrick Benitez MD Work Phone: [facility] [employer] 12-17-2023 11:15-0400 Systolic blood pressure 133 mm[Hg] Darrick Benitez MD Work Phone: [facility] [employer] 12-17-2023 11:00-0400 Body temperature 96.8 [degF] Darrick Benitez MD Work Phone: [facility] [employer] 12-03-2023 08:44-0400 Body temperature 97.5 [degF] Darrick Benitez MD Work Phone: [facility] [employer] 12-03-2023 08:44-0400 Diastolic blood pressure 70 mm[Hg] Darrick Benitez MD Work Phone: [facility] [employer] 12-03-2023 08:44-0400 Heart rate 58 /min Darrick Benitez MD Work Phone: [facility] [employer] 12-03-2023 08:44-0400 Respiratory rate 15 /min Darrick Benitez MD Work Phone: [employer] 12-03-2023 08:44-0400 SaO2% (BldA) [Mass fraction] 95 % Darrick Benitez MD Work Phone: [facility] [employer] 12-03-2023 08:44-0400 Systolic blood pressure 123 mm[Hg] Darrick Benitez MD Work Phone: [facility] [employer] 11-30-2023 13:11-0400 Body height 170.2 cm Darrick Benitez MD Work Phone: [facility] [employer] 11-30-2023 13:11-0400 Body mass index (BMI) [Ratio] 40.57 kg/m2 Darrick Benitez MD Work Phone: [facility] [employer] 11-30-2023 13:11-0400 Body weight 117.48 kg Darrick Benitez MD Work Phone: [facility] [employer] 11-21-2023 15:57-0400 Body mass index (BMI) [Ratio] 40.71 kg/m2 Saul Patterson MD [facility] [employer] 11-21-2023 15:57-0400 Body temperature 97.3 [degF] Saul Patterson MD [facility] [employer] 11-21-2023 15:57-0400 Body weight 117.9 kg Saul Patterson MD [facility] [employer] 11-21-2023 15:57-0400 Diastolic blood pressure 73 mm[Hg] Saul Patterson MD [facility] [employer] 11-21-2023 15:57-0400 Heart rate 82 /min Saul Patterson MD [facility] [employer] 11-21-2023 15:57-0400 Respiratory rate 16 /min Saul Patterson MD [facility] [employer] 11-21-2023 15:57-0400 SaO2% (BldA) [Mass fraction] 100 % Saul Patterson MD [facility] [employer] 11-21-2023 15:57-0400 Systolic blood pressure 127 mm[Hg] Saul Patterson MD [facility] [employer] 11-21-2023 11:52-0400 Body height 170.18 cm MD Barry House Work Phone: [facility] 11-21-2023 11:52-0400 Body temperature 97.4 [degF] MD Barry House Work Phone: [facility] 11-21-2023 11:52-0400 Body weight 117 kg MD Barry House Work Phone: [facility] 11-21-2023 11:52-0400 Diastolic blood pressure 74 mm[Hg] MD Barry House Work Phone: [facility] 11-21-2023 11:52-0400 Heart rate 78 /min MD Barry House Work Phone: [facility] 11-21-2023 11:52-0400 Respiratory rate 18 /min MD Barry House Work Phone: [facility] 11-21-2023 11:52-0400 SaO2% (BldA) [Mass fraction] 97 % MD Barry House Work Phone: [facility] 11-21-2023 11:52-0400 Systolic blood pressure 135 mm[Hg] MD Barry House Work Phone: [facility] 12-11-2022 13:54-0400 Blood Pressure Location Miguelina KIRKLANDL [facility] [place] 12-11-2022 13:54-0400 Diastolic blood pressure 84 mm[Hg] Miguelina KIRKLANDL [facility] [place] 12-11-2022 13:54-0400 Heart rate 72 /min Miguelina NILL [facility] [place] 12-11-2022 13:54-0400 Respiratory rate 16 /min Miguelina NILL [facility] [place] 12-11-2022 13:54-0400 Systolic blood pressure 126 mm[Hg] Miguelina KIRKLANDL [facility] [place] 08-06-2022 13:25-0400 Diastolic blood pressure 84 mm[Hg] Miguelina NILL [facility] [place] 08-06-2022 13:25-0400 Heart rate 70 /min Miguelina NILL [facility] [place] 08-06-2022 13:25-0400 Respiratory rate 16 /min Miguelina NILL [facility] [place] 08-06-2022 13:25-0400 Systolic blood pressure 122 mm[Hg] Miguelina NILL [facility] [place] 02-19-2021 16:45-0400 Body height 170.18 cm Guille [employer] Other [employer] Other 02-19-2021 16:45-0400 Body mass index (BMI) [Ratio] 36.02 kg/m2 Guille [employer] Other [employer] Other 02-19-2021 16:45-0400 Body weight 104.33 kg Guille Jose Alberto Other [employer] Other Encounters Encounter Date Encounter Type Care Provider Facility Start: 12-07-2024 End: 12-07-2024 Postop follow up visit related to original px Serg Mata DPM FACFAS Work Phone: [facility] Comment on above: Other synovitis and tenosynovitis, right ankle and foot (Primary Dx) Start: 12-07-2024 End: 12-07-2024 ambulatory SERG MATA Not Available Start: 12-07-2024 End: 12-07-2024 Bamboo flowsheet Serg Mata DPM FACFAS Work Phone: [facility] Start: 12-07-2024 End: 12-07-2024 Bamboo flowsheet Serg Mata DPM FACFAS Work Phone: [facility] Start: 11-16-2024 End: 11-16-2024 Patient encounter procedure Serg D Dolce DPM FACFAS Work Phone: [facility] Comment on above: Other synovitis and tenosynovitis, right ankle and foot (Primary Dx); Contracture of right ankle Start: 11-16-2024 End: 11-16-2024 ambulatory SERG D DOLCE Not Available Start: 11-16-2024 End: 11-16-2024 Bamboo flowsheet Segr D Dolce DPM FACFAS Work Phone: [facility] Start: 11-16-2024 End: 11-16-2024 Bamboo flowsheet Serg D Dolce DPM FACFAS Work Phone: [facility] Start: 10-26-2024 End: 10-26-2024 Postop follow up [...] Serg D Dolce DPM FACFAS Work Phone: [facility] External Department Unsolicited Start: 10-03-2024 End: 10-03-2024 Clinisync Result Encounter Serg D Dolce DPM FACFAS Work Phone: [facility] External Department Unsolicited Start: 09-15-2024 Emergency department patient visit [facility] Facility:[facility] Start: 09-14-2024 End: 09-14-2024 Office outpatient visit 25 minutes Serg D Dolce DPM FACFAS Work Phone: [facility] Comment on above: Osteochondritis diss ecans of right ankle (Primary Dx); Solitary bone cyst of right foot; Other synovitis and tenosynovitis, right ankle and foot Start: 09-14-2024 End: 09-14-2024 ambulatory SERG D DOLCE Not Available Start: 09-14-2024 End: 09-14-2024 Bamboo flowsheet Serg D Dolce DPM FACFAS Work Phone: [facility] Start: 09-14-2024 End: 09-14-2024 Bamboo flowsheet Serg D Dolce DPM FACFAS Work Phone: [facility] Start: 09-14-2024 End: 09-14-2024 Telephone encounter Serg Ke Liangmelia DPM FACFAS Work Phone: [facility] [...] 08-29-2024 End: 08-29-2024 Bamboo flowsheet Yared Joe Terrazas DPM Work [...] 07-17-2024 Emergency department patient visit BARRY HOUSE Facility:[facility] Start: 12-17-2023 End: 12-17-[address] [facility] Start: 12-17-2023 End: 12-17-2023 Subsequent hospital visit by physician Darrick Benitez MD Work Phone: [facility] Comment on above: H/O umbilical hernia repair (Primary Dx); S/P left inguinal hernia repair Start: 12-03-2023 End: 12-03-2023 ambulatory DARRICK A [facility] Start: 12-03-2023 End: 12-03-2023 Subsequent hospital visit by physician Darrick Benitez MD Work Phone: [facility] Start: 11-21-2023 End: 11-21-2023 Emergency department patient visit BARRY HOUSE [facility] Comment on above: Umbilical hernia wit hout obstruction and without gangrene (Primary Dx); Left inguinal hernia Start: 11-21-2023 End: 11-21-2023 Emergency department patient visit MD Barry House Work Phone: [facility] Work Phone: Start: 02-20-2023 End: 02-21-2023 ambulatory Miguelina ROQUE Facility:[facility] Start: 02-20-2023 End: 02-20-2023 Patient encounter procedure Miguelina R NILL General Surgery N[facility] Start: 01-28-2023 End: 01-29-2023 ambulatory Miguelina R NILL Facility: [facility] Start: 01-28-2023 End: 01-28-2023 Patient encounter procedure Miguelina R NILL General Surgery N[facility] Start: 01-14-2023 End: 01-15-2023 ambulatory Miguelina R NILL Facility: [facility] Start: 01-13-2023 ambulatory Miguelina R NILL Facility :[id number] Start: 01-07-2023 End: 01-08-2023 ambulatory Miguelina R NILL Facility:CD:[id number] Start: 12-23-2022 End: 12-24-2022 ambulatory Miguelina R NILL Facility: [facility] Start: 12-23-2022 End: 12-23-2022 Patient encounter procedure Miguelina R NILL General Surgery Nill/Said [place] Start: 12-16-2022 End: 12-17-2022 ambulatory Miguelina R NILL Facility: [facility] Start: 12-11-2022 End: 12-12-2022 ambulatory Miguelina R NILL Facility:[facility] Start: 12-11-2022 End: 12-11-2022 Lab Drop off Miguelina R NILL [facility] Start: 12-11-2022 End: 12-11-2022 Patient encounter procedure Miguelina R NILL [facility] General Surgery [place] Start: 11-14-2022 End: 11-15-2022 ambulatory Miguelina R NILL Facility: [facility] Start: 11-11-2022 End: 11-12-2022 ambulatory Miguelina R NILL Facility:[facility] Start: 09-17-[address] BARRY HOUSE . Facili ty:[facility]1 Start: 09-02-2022 End: 09-03-[address] BARRY HOUSE . Facility:[facility] Start: 08-06-2022 End: 08-07-2022 ambulatory Miguelina ROQUE Facility:[facility] Start: 08-06-2022 End: 08-06-2022 Patient encounter procedure Miguelina Kiki ROQUE General Surgery Nill/[facility] [place] Start: 07-15-2022 ambulatory Miguelina ROQUE Facility :[facility] Start: 07-09-2022 End: 07-10-[address] BARRY HOUSE . Facility:[facility] Start: 07-03-2022 End: 07-04-[address] BARRY HOUSE . Facility:[facility] Start: 05-15-2022 End: 05-15-[address] BARRY HOUSE . Facility:[facility] Start: 04-05-2022 Encounter for preprocedural laboratory examination DR JUSTINO DIAS . [facility] Start: 04-03-2022 End: 04-03-2022 ambulatory [...] Facility:[facility] Start: 01-30-2022 End: 01-31-[address] BARRY HOUSE . Facility:[facility] Start: 02-19-2021 End: 02-19-2021 ambulatory Guille Abrams Other [employer] Other Start: 02-19-2021 Office outpatient ne w 30 minutes Guille Abrams [facility] Gastroenterology Start: 02-19-2021 Telephone encounter Guille Abrams [facility] Gastroenter[facility] Procedures Date Procedure Procedure Detail Performing Clinician Start: 10-03-2024 ALL CBC WITH AUTO DIFF Serg Mata DPM FACFAS Work Phone: Start: 10-03-2024 ECG 12-LEAD Serg Mata DPM FACFAS Work Phone: Start: 08-08-2024 End: [...] Patterson MD Appendectomy Miguelina ROQUE section Miguelina NIL L Cholecystectomy Miguelina NILL Colonoscopy Miguelina NILL Esophagogastroduodenoscopy Kulwant pan NILL Excision of cyst of ovary Mi tieshaisatu NILL History of repair of inguinal hernia S/P left inguinal hernia repair Darrick Benitez MD Work Phone: Laparoscopy Miguelina KIRKLANDXiomara Transcervical sterilization Miguelina MYA Plan of Treatment Date Care Activity Detail Author Start: 12-19-2024 Influenza vaccination [facility] Start: 12-07-2024 End: 12-07-2024 Patient encounter procedure [facility] Comment on above: Arrived Start: 11-16-2024 End: 11-16-2024 Patient encounter procedure [...] EDT Office Visit [facility] [address] [place] [phone] Serg Mata, DPM FACFAS [address] [place] [address] Arrived [facility] Comment on above: Arrived Start: 10-18-2024 End: 10-18-2024 Patient encounter procedure [facility] Start: 10-05-2024 End: 10-05-2024 Patient encounter procedure 10/05/2024 4:00 PM EDT Office Visit [facility] [address] [place] [phone] Serg Mata, DPM FACFAS [address] [place] [address] [facility] Start: 09-14-2024 End: 09-14-2024 Patient encounter procedure 09/14/2024 4:20 PM EDT Office Visit [facility] [address] [place] [address] Serg Mata, RAJEEV FACFAS [address] [facility] [place] [address] Arrived [facility] Comment on above: Arrived Start: 09-06-2024 End: 09-06-2024 Patient encounter procedure 09/06/2024 3:30 PM EDT Office Visit [facility] [address] [place] [phone] Yared Terrazas DPM [address] [address] Sprain of anterior talofibular ligament of right [...] EDT Office Visit [facility] [address] [place] [phone] Yared Terrazas DPM [address] [address] Sprain of anterior talofibular ligament of right [...] EDT Office Visit [facility] [address] [place] [phone] Yared Terrazas DPM [address] [facility] [address] [place] [address] Arrived [facility] Comment on above: Arrived Start: 12-29-2023 End: 12-29-2023 Patient encounter procedure 12/29/2023 12:45 PM EDT Office Visit [facility] General Surgery [address] [place] [address] Post Op/ OPEN UMBILICAL HERNIA REPAIR, OPEN LEFT INGUINAL HERNIA REPAIR, MESH 12/03/2023 [facility] General Surgery Comment on above: Post Op/ OPEN UMBILI TAHMINA HERNIA REPAIR, OPEN LEFT INGUINAL HERNIA REPAIR, MESH 12/03/2023 Start: 12-17-2023 End: 12-17-2023 Admission to same day surgery center 12/17/2023 7:30 AM EDT - 12/17/2023 9:10 AM EDT Surgery [facility] [address] [place] [phone] Darrick Benitez MD [address] [place] [id number] OPEN UMBILICAL HERNIA REPAIR, OPEN LEFT INGUINAL HERNIA REPAIR, MESH [facility] Comment on above: OPEN UMBILICAL HERNI A REPAIR, OPEN LEFT INGUINAL HERNIA REPAIR, MESH Start: 12-17-2023 End: 12-17-2023 Rpr 1st ingun hrna age 4 yrs/> reducible [facility] Start: 12-17-2023 Subsequent hospital visit by physician 12/17/2023 7:30 AM EDT Hospital Encounter [facility] [address] [place] [address] Darrick Benitez MD [address] [place] [id number] [facility] Start: 12-15-2023 End: 12-15-2023 Patient encounter procedure 12/15/2023 12:45 PM EDT Office Visit [facility] General Surgery [address] [facility] [address] [place] [address] Post Op/ OPEN UMBILICAL HERNIA REPAIR, OPEN LEFT INGUINAL HERNIA REPAIR, MESH 12/03/2023 [facility] General Surgery Comment on above: Post Op/ OPEN UMBILI TAHMINA HERNIA REPAIR, OPEN LEFT INGUINAL HERNIA REPAIR, MESH 12/03/2023 Start: 11-19-2023 Influenza vaccination Flu vaccine (# 1) [facility] Start: 02-23-2023 DTaP/Tdap/Td vaccine (2 - Td or Tdap) DTaP/Tdap/Td vaccine (2 - Td or Tdap) [facility] Start: 12-19-2022 COVID-19 Vaccine ( season) COVID-19 Vaccine ( season) [facility] Start: 11-07-2017 Screening for malignant neoplasm of cervix [facility] Start: 2014 Screening for malignant neoplasm of cervix [facility] Start: 12-15-2003 Hepatitis B vaccine (1 of 3 - 19+ 3-dose series) Hepatitis B vaccine (1 of 3 - 19+ 3-dose series) [facility] Start: 2002 Hepatitis C screening Hepatitis C sc reen [facility] Start: 12-15-1999 HIV screening HIV screen [facility] Start: 1997 Varicella vaccine (1 of 2 - 13+ 2-dose series) Varicella vaccine (1 of 2 - 13+ 2-dose series) [facility] Start: 1996 Depression Monitoring Depression Mon itoring [facility] Start: 1985 Varicella vaccine (1 of 2 - 2-dose childhood series) Varicella vaccine (1 of 2 - 2-dose childhood series) [facility] Start: 06-16-1985 COVID-19 Vaccine (#1) COVID-19 Vacci ne (#1) [facility] Start: 1984 Hepatitis B vaccine (1 of 3 - 3-dose series) Hepatitis B vaccine (1 of 3 - 3-dose series) [facility] End: 12-17-2023 INITIATE PACU OXYGEN THERAPY PROTOCOL Initiate PACU Oxygen Therapy Protocol Respiratory Care Routine Continuous until discontinued starting 12/17/2023 WILLAM CASTILLO Work Phone: Comment on above: Continuous until dis continued starting 12/17/2023 Immunizations Immunization Date Immunization Notes Care Provider Ama porras 09-13-2020 SARS-CoV-2 (COVID-19 ) mRNA-1273 vaccine Miguelina NILL [facility] [place] 08-16-2020 SARS-CoV-2 (COVID-19 ) mRNA-1273 vaccine Miguelina NILL [facility] [place] 04-20-2020 SARS-CoV-2 (COVID-19 ) mRNA-1273 vaccine Miguelina NILL [facility] Comment on above: Result Comment: pt h as had 2 shots 02-03-2020 influenza virus vaccine, unspecified formulation Yared Terrazas DP Work Phone: [facility] NEGATED: Highlighted row has not occurred!08-06-2022 influenza virus vaccine, unspecified formulation Miguelina ROQUE [facility] [place] Payers Date Payer Category Payer Private Health Insurance [id number] 2024 Unknown [id number] 2023 Unknown [id number] 2023 Self-pay 1984 Unknown [id number] 2.16.84 0.1.414641.3.579.2.593 1984 Unknown [id number] 2.16.84 0.1.419915.3.579.2.593 1984 Unknown [id number] 2.16.84 0.1.292657.3.579.2.593 1984 Unknown [id number] 2.16.84 0.1.005719.3.579.2.593 1984 Unknown [id number] 2.16.84 0.1.033591.3.579.2.593 1984 Unknown [id number] 2.16.84 0.1.028203.3.579.2.593 1984 Unknown [id number] 2.16.84 0.1.446667.3.579.2.593 1984 Unknown [id number] 2.16.84 0.1.002189.3.579.2.593 1984 Unknown [id number] 2.16.84 0.1.065911.3.579.2.593 1984 Unknown [id number] 2.16.84 0.1.957187.3.579.2.593 1984 Unknown [id number] 2.16.84 0.1.012519.3.579.2.593 1984 Unknown [id number] 2.16.8 40.1.882041.3.579.2.727 1984 Unknown [id number] 2.16.8 40.1.758942.3.579.2.727 1984 Unknown [id number] 2.16.8 40.1.163438.3.579.2.727 1984 Unknown [id number] 2.16.8 40.1.521756.3.579.2.727 1984 Unknown [id number] 2.16.8 40.1.709392.3.579.2.727 1984 Unknown [id number] 2.16.8 40.1.407638.3.579.2.727 1984 Unknown [id number] 2.16.8 40.1.698035.3.579.2.727 1984 Unknown [id number] 2.16.8 40.1.757600.3.579.2.727 1984 Unknown [id number] 2.16.8 40.1.694268.3.579.2.727 1984 Unknown [id number] 2.16.8 40.1.351244.3.579.2.727 1984 Unknown [id number] 2.16.8 40.1.230553.3.579.2.727 1984 Unknown [id number] 2.16.8 40.1.646405.3.579.2.727 1984 Unknown [id number] 2.16. 840.1.522915.3.579.2.175 1984 Unknown [id number] 2.16. 840.1.060969.3.579.2.175 1984 Unknown [id number] 2.16. 840.1.520968.3.579.2.175 1984 Unknown [id number] 2.16.8 40.1.475696.3.579.2.718 1984 Unknown [id number] 2.16.8 40.1.264653.3.579.2.718 1984 Unknown [id number] 2.16.8 40.1.099247.3.579.2.1259 1984 Unknown [id number] 2.16.8 40.1.692307.3.579.2.1259 1984 Unknown [id number] 2.16.8 40.1.113624.3.579.2.1259 1984 Unknown [id number] 2.16.8 40.1.397616.3.579.2.1259 1984 Unknown [id number] 2.16.8 40.1.591775.3.579.2.1259 1984 Unknown [id number] 2.16.84 0.1.146018.3.579.2.1259 1984 Unknown [id number] 2.16.84 0.1.229872.3.579.2.1259 1984 Unknown [id number] 2.16.84 0.1.929772.3.579.2.1259 1984 Unknown [id number] 2.16.84 0.1.296330.3.579.2.1259 1984 Unknown [id number] 2.16.84 0.1.379536.3.579.2.1259 1984 Unknown [id number] 2.16.84 0.1.275250.3.579.2.1259 1984 Unknown [id number] 2.16.84 0.1.195423.3.579.2.1259 1959 Unknown [id number] 2. 16.840.1.802869.19 1959 Unknown [id number] Unknown [id number] 2.16.8 40.1.725979.3.579.2.531 Social History Date Type Detail Facility Unknown if ever smoked [employer] Other Start: 01-05-2016 End: 12-07-2024 Sex Assigned At [facility] Start: 08-06-2022 End: 12-16-2023 Tobacco smoking status Ex-smoker (finding) [facility] [place] Tobacco smoking status Smokeless tobacco user within last 30 days [facility] [place] Start: 11-21-2023 Tobacco smoking status NHIS Smoker (finding) [facility] Start: 1985 Sex Assigned At Female [facility] History of tobacco use Cigarette Smoker [employer] Start: 08-17-2014 End: 08-08-2024 Tobacco use and exposure Smokeless tobacco non-user [employer] Start: 12-28-2014 End: 12-17-2023 Alcohol intake Current drinker of alcohol (finding) [employer] Start: 01-05-2016 End: 12-07-2024 History of Social function [employer] Start: 08-17-2014 End: 11-26-2023 Tobacco Comment quit 3 months ago [employer] Start: 01-20-2013 Alcohol Comment rarely [employer] Start: 1985 Sex Assigned At Not on file [employer] How often to you have a drink containing alcohol? Never [employer] Tobacco smoking status GAIS Tobacco smoking consumption unknown [facility] Start: 08-08-2024 Tobacco smoking status NHIS Smokes tobacco daily [facility] Start: 08-08-2024 End: 12-07-2024 Alcoholic beverage intake Ex-drinker (finding) [facility] NEGATED: Highlighted row [facility] Medical Equipment Procedure Code Equipment Code Equipment Origin al Text Equipment Identifier Dates [id number] FDA Start: 12-17-2023 Functional Status Date Assessment Result Facility 12-11-2022 [facility] N[facility] [place] 08-06-2022 Functional Status N/A [facility] Clinical Notes 02-19-2021 to 12-07-2024 Serg Ke Liangce, DPM [facility] - 12/07/2024 4:20 PM EDTMarc D Dolce, DPM [facility] - 11/16/2024 4:10 PM EDTMarc D Dolce, DPM [facility] - 10/26/2024 4:00 PM EDTMarc D Dolce, DPM [facility] - 10/19/2024 4:10 PM EDT Note Date & Type Note Facility 12-07-2024 History of Present illness Narrative Images from the original note were not included. Patient: Tiara Parikh : 1985 PCP: Barry House MD SUBJECTIVE This is a 38 y.o. female that presents today The patient is here status post ankle arthroscopy right procedure. Postop week 8 They deny fevers, chills, nausea, vomiting, calf pain and shortness of breath. Pain level is being managed with ice elevation and pain medication. They have been relatively compliant with her postoperative care. Patient was doing 100 percent better no complaints. Allergies: No Known Allergies Past Medical History: Active Ambulatory Problems Diagnosis Date Noted No Active Ambulatory Problems Resolved Ambulatory Problems Diagnosis Date Noted No Resolved Ambulatory Problems Past Medical History: Diagnosis Date Difficulty walking 07-17-24 Hepatitis Plantar fasciitis Substance abuse ([facility]) Medications: Current Outpatient Medications: Abilify 30 MG [...] < 3 seconds Digits 1-5 bilateral NEURO: [place] Deja 5.07 monofilament was intact B/L. Vibratory [...] and tenosynovitis, right ankle and foot PLAN Patient may discontinue use of the ASO brace is doing very well follow up with al p.r.n. RAJEEV Bazzi documented in this encounter [facility] 11-16-2024 History of Present illness Narrative Images [...] walking 07-17-24 Hepatitis Plantar fasciitis Substance abuse ([facility]) Medications: Current Outpatient Medications: Abilify 30 [...] < 3 seconds Digits 1-5 bilateral NEURO: [place] Deja 5.07 monofilament was intact B/L. Vibratory [...] supplier standards were given to the patient. RAJEEV Bazzi documented in this encounter [facility] 10-26-2024 History of Present illness Narrative Images [...] walking 07-17-24 Hepatitis Plantar fasciitis Substance abuse ([facility]) Medications: Current Outpatient Medications: Abilify 30 [...] < 3 seconds Digits 1-5 bilateral NEURO: [place] Deja 5.07 monofilament was intact B/L. Vibratory [...] she is doing very well continue with iktrh-vw-linpdq exercises Serg Mata DPM [facility] documented in this encounter [facility] 10-19-2024 History of Present illness Narrative [...] walking 07-17-24 Hepatitis Plantar fasciitis Substance abuse ([facility]) Medications: Current Outpatient Medications: Abilify 30 [...] < 3 seconds Digits 1-5 bilateral NEURO: [place] Deja 5.07 monofilament was intact B/L. Vibratory [...] Guidelines. RAJEEV Bazzi documented in this encounter [facility] 10-12-2024 Telephone encounter Note The prescription has been sent to the pharmacy. Thank you. [facility] 10-12-2024 Miscellaneous Notes The prescription has been sent to the pharmacy. Thank you. documented in this encounter [facility] 10-05-2024 History of Present illness Narrative [...] walking 07-17-24 Hepatitis Plantar fasciitis Substance abuse ([facility]) Medications: Current Outpatient Medications: Abilify 30 [...] procedure. RAJEEV Bazzi documented in this encounter [facility] 09-15-2024 Note Education Materials Infectious Disease Incision and Drainage, Care After After incision and drainage, it is common to have: ? Pain or discomfort around the incision site. ? Blood, fluid, or pus (drainage) from the incision. ? Redness and firm skin around the incision site. Follow these instructions at home: Medicines ? Take wycf-kqb-yeqermb and prescription medicines only as told by [...] and water are not available, use hand graphics coordinator. ? Change your dressing and any packing [...] provider. Document Revised: 11/24/2022 Document Reviewed: 11/24/2022 [place] [employer] Patient Education ? 2023 [employer]. [facility] 09-14-2024 Telephone encounter Note Phone #: [phone] Insurance: Payor: [employer] / Plan: [employer] [place] [employer] [facility] [employer] / Product Type: *No Product type* / Preferred Date/Time: First Available [x] ADRIANNA [] Patient Name: Tiara Parikh : 1985 Surgeon: Dr. Serg Mata [x] Dr. Richard Mata [] Location: [facility] [x] [facility] [] [facility] [] Procedure(s): ankle arthroscopy [id number] CPT Code(s): 81291 Diagnosis: No diagnosis found. Procedure Time: 30 min [x] 1 Hour [] 1.5 Hour [] 2 Hours [] Anesthesia: MAC [x] General [] Local [] Popliteal Block [] Position: Supine [x] Prone [] Lateral [] Special Requests: C-arm [] Pulse Lavage [] [employer] [] Special Equipment: Arthrex plate /screws [] Internal brace [] Arthrex FiberTak [] Biopro Staple [] Biopro Carlose Duardo Impant [] Other [] Pre-op Orders: Abx 30 min Prior: 2g Ancef [x] Clindamycin 600mg [] Vancomycin 1 g [] Post-op WB: Partial WB [] Non-WB [x] Crutches [] Walker [] Knee Scooter [] PCP Clearance: Barry House MD Other Clearance: Cardiology [] Rheumatology [] Other [] [facility] Work Phone: 09-14-2024 Miscellaneous Notes Phone #: [phone] Insurance: Payor: [employer] / Plan: [employer] [place] [employer] [facility] [employer] / Product Type: *No Product type* / Preferred Date/Time: First Available [x] ADRIANNA [] Patient Name: Tiara Parikh : 1985 Surgeon: Dr. Serg Mata [x] Dr. Richard Mata [] Location: [facility] [] [facility] [] [facility] [] Procedure(s): ankle arthroscopy [id number] CPT Code(s): 71533 Diagnosis: No diagnosis found. Procedure Time: 30 [...] [] Other [] documented in this encounter [facility] 09-14-2024 History of Present illness Narrative [...] procedure. RAJEEV Bazzi documented in this encounter [facility] 09-06-2024 History of Present illness Narrative [...] Yared Terrazas DPM documented in this encounter [facility] 08-29-2024 History of Present illness Narrative [...] and will place on steroid pack Yared Terraazs DPM documented in this encounter [facility] 08-08-2024 History of Present illness Narrative [...] Medical History: Diagnosis Date Difficulty walking 330-25 Plantar fasciitis Substance abuse Medications: No current [...] Yared Terrazas DPM documented in this encounter [facility] 07-17-2024 Note Education Materials Orthopedics Foot [...] on your foot. General instructions ? Take fqei-pua-glvycnn and prescription medicines only as told by your health care provider. ? When you can walk without pain, w (more content not included)... [facility] 12-17-2023 Hospital Discharge instructions Johnathon Booth [...] call your doctor documented in this encounter [facility] 12-03-2023 History of Present illness Narrative Patient very upset. Did not wait for indefinite amount of time for surgery time.Lead RN notified and during notification of tractor driver teamster, patient removed own iv and stormed out of unit cussing. documented in this encounter [facility] 12-03-2023 Hospital Discharge instructions Emma Smith [...] at 8pm, etc.). If prescribed narcotic medications (Dickinson, Percocet, or Roxicodone), use for breakthrough pain and attempt to wean off medications as soon as possible. Do not take more than 4000mg tylenol in 24 hours. SPECIAL INSTRUCTION: Call the office at [phone] if you develop fevers, chills, uncontrolled nausea, vomiting. Monitor incisions for signs of redness or green discharge. Please follow-up in approximately 2 weeks after surgery for your postop evaluation. Office Address: [address] [place] [id number] documented in this encounter [facility] 11-21-2023 Hospital Discharge instructions Favio Devlin [...] cannot be sent through Care Everywhere.Inguinal Hernia (Bengali)documented in this encounter [facility] 12-13-2022 Note Microbiology PROCEDURE: Wound Culture [...] Locations R1: This test was performed at: [facility], [address] [place] [address], [id number] , , [facility] Comment on above: Performed By: #### 2 [id number] ####[facility] [id number] [place] [id number] 12-11-2022 Note Chief Complaint consultation for recurrent breast abscess HPI Staff Presents with complaint of recurrent breast abscess. Reports she developed redness and pain on Thursday. She presented to [facility] ED Thursday and was given prescriptions [...] Patient Refuses DALIA (more content not included)... [facility] Comment on above: Result Comment: [...] authenticated by: DARRICK GIBBS Date: 2022-09-02 10:54 [facility] 08-06-2022 Note Chief Complaint consultation for [...] Crohn's disease Depression (more content not included)... [facility] Comment on above: Result Comment: Elec tronically Signed By: MYA TEMPLE, Miguelina Esquivel.kam\Date and Time Signed: 08/06/22 21:16 EDT 04-03-2022 Note OPERATIVE NOTE OPERATION DATE: 04/03/2022 PROCEDURE: Diagnostic laparoscopy with left ovarian cystotomy. PREOPERATIVE DIAGNOSIS: Pelvic pain. POSTOPERATIVE DIAGNOSIS: Pelvic pain. ANESTHESIA: General. SURGEON: Justino Dias D.O. BAIL AGENT: SAMMY Phillips URINE OUTPUT: Yellow and clear. [...] in stable condition. ? [facility] 02-19-2021 Evaluation note Encounter Date [...] TESTING Q 4 WEEKS WHILE ON THERAPY [employer] Other 11-02-2021 Evaluation note* Encounter Date Diagnosis Assessment Notes Treatment Notes Treatment Clinical Notes Feb, Hepatitis C (ICD-10 - B19.20) [employer] Other Evaluation + Plan note No data available for this section General Surgery [place] Evaluation + Plan note Future Appointments Appointment Date:12/16/2022 04:00:00 PM Scheduled Provider:Miguelina ROQUE MD Location:[facility] Appointment Type: Established 15 [facility] General Surgery [place] Evaluation + Plan note Future Appointments Appointment Date:12/16/2022 04:00:00 PM Scheduled Provider:Miguelina ROQUE MD Location:[facility] Appointment Type: Established 15 Diagnostic Tests Pending * [facility] Appointment Date:02/04/2023 01:00:00 PM Scheduled Provider:Miguelina ROQUE MD Location:[facility] Appointment Type:GS Post Op 15 General Surgery [place] Evaluation noteNo assessment information available [facility] Work Phone: Evaluation note* Diagnosis Umbilical hernia without obstruction and without gangrene- Primary Left inguinal hernia Inguinal hernia without mention of obstruction or gangrene, unilateral or unspecified, (not specified as recurrent) documented in this encounter [facility] [employer]Evaluation note* Diagnosis H/O umbilical hernia repair- Primary Personal history of surgery to other organs H/O umbilical hernia repair Personal history of surgery to other organs S/P left inguinal hernia repair Other postprocedural status documented in this encounter [facility] [employer] note* Diagnosis Sprain of anterior talofibular ligament [...] History EGD 2009 Hospitalization History See Above [employer] Other Hospital Discharge instructions No data available for this section General Surgery [employer] Progress note No data available for this section General Surgery EntraTympanic Summary Purpose Family History No Family History [...] HERNIA REPAIR, MESH Darrick Benitez MD [address] [facility] [address] [place] [address] [facility] [address] [place] [address] Referral ID Status Reason Start Date Expiration Date Visits Re quested Visits Authorized [id number] 1 1 Specialty Diagnoses / Procedures Referred By Contangelita t Referred To Contact Diagnoses Umbilical hernia [...] HERNIA REPAIR, MESH Darrick Benitez MD [address] [address] [facility] [address] [place] [address] Referral ID Status Reason Start Date Expiration Date Visits Re quested Visits Authorized [id number] 1 1 Reason Comments Ankle Pain RT ANKLE Reason Comments Follow-up Reason Comments Follow-up Mri results Reason Comments Ankle Pain Discuss ankle instab ility surgery Reason Comments Consent Or Instructions Surgery consult for RT ankle Reason Comments Foot/ankle Post-op WK 1 post op Reason Comments Foot/ankle Post-op Week 2 Post op Reason Comments Foot/ankle Post-op WK 5 post op Reason Comments Foot/ankle Post-op Week 8 post op Patient Care team informatio n (unrecognized section and content) Team Status: Active Member Role Status Dates Barry House MD Primary Care Provider Active Team Status: Inactive Member Role Status Dates Barry House MD Primary Care Provider Active Start: November 21, 2023 End: November 21, 2023 Walter Guillaume DO Emergency Provider Active St art: November 21, 2023 End: November 21, 2023 Automobile Body Repairer Relationship Specialty Start Date End Date Barry House MD [address] [place] [address] PCP - General 01/06/13 Automobile Body Repairer Relationship Specialty Start Date End Date Barry House MD [address] [place] [address] PCP - General 01/06/13 Automobile Body Repairer Relationship Specialty Start Date End Date Barry House MD [address] [place] [address] PCP - General 01/06/13 Automobile Body Repairer Relationship Specialty Start Date End Date Unallocated, [place] MD Susannah [address] [place] [address] PCP - General Family Medicine 08/08/24 Automobile Body Repairer Relationship Specialty Start Date End Date Barry House MD [address] [place] [facility] [address] PCP - General Family Medicine 08/08/24 Automobile Body Repairer Relationship Specialty Start Date End Date Barry House MD [address] [facility], [facility] PCP - General Family Medicine 08/08/24 Automobile Body Repairer Relationship Specialty Start Date End Date Barry House MD [address] [place] [facility] [address] PCP - General Family Medicine 08/08/24 Automobile Body Repairer Relationship Specialty Start Date End Date Barry House MD [address] [place] [facility] [address] PCP - General Family Medicine 08/08/24 Automobile Body Repairer Relationship Specialty Start Date End Date Barry House MD [address] [place] [facility] [address] PCP - General Family Medicine 08/08/24 Automobile Body Repairer Relationship Specialty Start Date End Date Barry House MD [address] [place] [address] PCP - General Family Medicine 08/08/24 Automobile Body Repairer Relationship Specialty Start Date End Date Barry House MD [address] [place] [facility] [address] PCP - General Family Medicine 08/08/24 Automobile Body Repairer Relationship Specialty Start Date End Date Barry House MD [address] [place] [facility] [address] PCP - General Family Medicine 08/08/24 Automobile Body Repairer Relationship Specialty Start Date End Date Barry House MD [address] [place] [facility] [address] PCP - General Family Medicine 08/08/24 INFORMATION SOURCE (unrecogn ized section and content) DATE CREATED AUTHOR 09/26/2022 [facility] DATE CREATED AUTHOR AUTHOR'S ORGANIZ ATION 02/22/2023 [facility] DATE CREATED AUTHOR AUTHOR'S ORGANIZ ATION 12/05/2023 [facility] DATE CREATED AUTHOR AUTHOR'S ORGANIZ ATION 12/31/2023 [facility] DATE CREATED AUTHOR AUTHOR'S ORGANIZ ATION 09/25/2024 [facility] DATE CREATED AUTHOR AUTHOR'S ORGANIZ ATION 12/09/2024 [facility] EPIC Goals (unrecognized section [...] mg from all sources in 24 hours. 162 (Given - Provid er: Sri Corea RN) ondansetron (ZOFRAN) injection 4 mg (COMPLETED) 4 mg, IntraVENous, ONCE, 1 dose, On 11/21/23 at 1615 1623 (Given - Provid er: Sri Corea RN) oxyCODONE-acetaminophen (PERCOCET) 5-325 MG per tablet 1 tablet (COMPLETED) 1 tablet, Oral, ONCE, 1 dose, On 11/21/23 at 1945, Maximum dose of acetaminophen is 4000 mg from all sources in 24 hours. 194 (Given - Provid er: Mirelile Byrne LPN) PRN Medication Order 11/19/2023 11/20/2023 [...] order., PACU only BUPivacaine-EPINEPHrine PF (MARCAINE-w/EPINEPHrine) 0.5% -[id number] injection (CANCELED) PRN, Starting on Amara 12/17/23 [...] BE BASED ON THE PRIMARY CLINICAL RECORDS. [employer] [facility]. provides no warranty or guarantee of the accuracy or completeness of information in this document.
== END 2024-12-26 09:00 | disposition home or self-care (01) ==
LOC: CARD 08:59
PROVIDERS: PCP Family Medicine; Visit Provider Family Medicine
DX: R60.0 Localized edema (principal)
CPT/HCPCS: 93306